=== PATIENT | female | born 1935 | race African-American/Black ===

== ENCOUNTER 2016-11-17 20:26 | Inpatient (IN) | payer MEDICARE, MEDICAID ==
[~2016-11-17] VITALS: Ht 165.1 cm; Wt 108.9 kg
[~2016-11-17 20:26] MED LIST: ACETAMINOPHEN-1 EAC1 ORAL; ACETAMINOPHEN-1 EAC1 PO; ALBUTEROL SULF8.5 GM INH; AZOPT10 ML BOTH EYES; BROMDAY; COMBIGAN EYE DRO5 ML BOTH EYES; COREG12.5 MG PO; CYCLOBENZAPRINE10 MG ORAL; DIOVAN320 MG ORAL; FLONASE1 SPRAYS NASAL; FUROSEMIDE80 MG PO; IBUPROFEN600 MG ORAL; LANTUS5 UNITS SUBQ; LEVAQUIN500 MG ORAL; LEVAQUIN750 MG ORAL; LUMIGAN1 DROP BOTH EYES; NEXIUM40 MG ORAL; NITROSTAT0.4 M1 SL; NOVOLOG100 UNIT/3 SUBQ; PAIN PATCH; POTASSIUM CHLO20 ME1 PO; QVAR7.3 GM INH; [UNRECOGNIZED DRUG - CODE]; prilosec
[2016-11-17 20:50] VITALS: BP 141/67
[2016-11-17] MEDS ORDERED: Ampicillin/Sulbactam Sod 3 GM in NS 100 ML IV SCH (21:00)
[2016-11-17] MEDS ORDERED: Solu-MEDROL 125mg Inj IVP ONE (21:00)
[2016-11-17] MEDS: DuoNeb 0.5-3(2.5)mg/3ml neb HHN SCH ×4 (21:21→21:46)
[2016-11-17] MEDS ORDERED: Unasyn 3gm Inj ONE (21:21)
[2016-11-17] MEDS ORDERED: DIOVAN320 MG ORAL (21:42)
[2016-11-17] MEDS ORDERED: COREG12.5 MG ORAL (21:42)
[2016-11-17] MEDS ORDERED: LANTUS SOL100 UNIT/1 SUBQ (21:42)
[2016-11-17] MEDS ORDERED: NOVOLOG100 UNIT/4 SQ (21:42)
[2016-11-17 21:45] LABS: BASOPHILS % (AUTO) 1.2 % (0.0-2.0); EOSINOPHILS % (AUTO) 1.7 % (0.0-3.0); LYMPHOCYTES % (AUTO) 18.6 % (20.0-45.0); MEAN CORPUSCULAR HEMOGLOBIN 22.8 PG (27.0-31.0); MEAN CORPUSCULAR VOLUME 79 FL (80-99); MEAN PLATELET VOLUME 6.7 FL (6.5-10.1); MONOCYTES % (AUTO) 8.9 % (1.0-10.0); NEUTROPHILS % (AUTO) 69.5 % (45.0-75.0); PLATELET COUNT 204 K/UL (150-450); RED BLOOD COUNT 5.81 M/UL (4.20-5.40); RED CELL DISTRIBUTION WIDTH 12.9 % (11.6-14.8); WHITE BLOOD COUNT 7.2 K/UL (4.8-10.8)
[2016-11-17 21:56] VITALS: BP 157/43
[2016-11-17 22:08] LABS: ALANINE AMINOTRANSFERASE 18 U/L (3-33); ALBUMIN/GLOBULIN RATIO 0.9 (1.0-2.7); ANION GAP 15 (5-15); ASPARTATE AMINO TRANSFERASE 18 U/L (5-40); CALCIUM 10.4 mg/dL (8.6-10.2); CARBON DIOXIDE 23 mEQ/L (20-30); CHLORIDE 100 mEQ/L (98-107); HEMOLYSIS 16; POTASSIUM 4.5 mEQ/L (3.4-4.9); SODIUM 138 mEQ/L (135-145); TOTAL PROTEIN 7.2 g/dL (6.6-8.7)
[2016-11-17 22:11] LABS: TROPONIN I < 0.30 ng/mL (<=0.30)
[2016-11-17 22:18] LABS: CKMB 2.7 ng/mL (< 3.8)
[2016-11-17 23:14] LABS: ABG ALLEN TEST POSITIVE; ABG BASE EXCESS -0.2; ABG PCO2 43.9 mmHg (35.0-45.0)
--- NOTE | 2016-11-17 23:50 | Emergency Room Report ---
History of Present Illness General Chief Complaint: Chest Pain Source: Patient Present Illness HPI Patient is 81-year-old female who presented after increased shortness of breath and chest pain. Patient had prior history of COPD she had recently had increased cough as well as difficulty breathing. She normally uses 3 L of oxygen at home. The patient had been followed by Dr. Bryant. The patient had subjective fever as well as increased dyspnea. The patient was short of breath for several days. She reports having increased dyspnea with supine position. She gradual onset of symptoms Allergies: Coded Allergies: AZITHROMYCIN (Verified Allergy, Intermediate, ITCHINESS, 10/15/13) QUESTIONABLE ALLERGIC RXN BUT PT STARTED ITCHING AFTER BEING GIVEN A DOSE BUT PT NOT SURE Patient History Past Medical History: see triage record Reviewed Nursing Documentation: PMH: Agreed, PSxH: Agreed Nursing Documentation-PMH Past Medical History: No History, Except For Hx Cardiac Problems: Yes - Pacemaker Hx Hypertension: Yes Hx Pacemaker: Yes Hx Asthma: Yes Hx COPD: Yes Hx Diabetes: Yes Hx Cancer: No Hx Gastrointestinal Problems: No Hx Neurological Problems: No Hx Tremors: Yes Hx Vertigo: Yes Hx Dizziness: Yes Hx Syncope: Yes Hx Headaches: Yes Hx Weakness: Yes Hx Fatigue: Yes Review of Systems All Other Systems: negative except mentioned in HPI Physical Exam Vital Signs Date Time Temp Pulse Resp B/P Pulse Ox O2 Delivery O2 Flow Rate FiO2 11/17/16 20:45 98.2 71 21 141/67 97 Room Air 11/17/16 21:23 21 Medical Decision Making Diagnostic Impression: Primary Impression: COPD exacerbation Additional Impression: Sarcoid ER Course Patient presented for shortness of breath.Differential included but was not limited to anemia, pneumonia, pneumothorax, myocardial infarction, pericardial effusion, congestive heart failure, acidosis. Because of complexity of patient' s case laboratory testing and imaging studies were ordered. EKG interpretation normal sinus rhythm with rate of [address] or T wave changes.The patient was given breathing treatments. She was started on IV antibiotics empirically. The patient was discussed with Dr. Mckeon who is covering for Dr. Bojorquez. Labs Test 11/17/16 21:20 11/17/16 22:20 White Blood Count 7.2 K/UL (4.8-10.8) Red Blood Count 5.81 M/UL (4.20-5.40) Hemoglobin 13.3 G/DL (12.0-16.0) Hematocrit 45.7 % (37.0-47.0) Mean Corpuscular Volume 79 FL (80-99) Mean Corpuscular Hemoglobin 22.8 PG (27.0-31.0) Mean Corpuscular Hemoglobin Concent 29.0 G/DL (32.0-36.0) Red Cell Distribution Width 12.9 % (11.6-14.8) Platelet Count 204 K/UL (150-450) Mean Platelet Volume 6.7 FL (6.5-10.1) Neutrophils (%) (Auto) 69.5 % (45.0-75.0) Lymphocytes (%) (Auto) 18.6 % (20.0-45.0) Monocytes (%) (Auto) 8.9 % (1.0-10.0) Eosinophils (%) (Auto) 1.7 % (0.0-3.0) Basophils (%) (Auto) 1.2 % (0.0-2.0) Sodium Level 138 mEQ/L (135-145) Potassium Level 4.5 mEQ/L (3.4-4.9) Chloride Level 100 mEQ/L (98-107) Carbon Dioxide Level 23 mEQ/L (20-30) Anion Gap 15 (5-15) Blood Urea Nitrogen 27 mg/dL (7-23) Creatinine 1.0 mg/dL (0.5-0.9) Estimat Glomerular Filtration Rate mL/min (>60) Glucose Level 216 mg/dL (74-106) Lactic Acid Level 1.20 mmol/L (0.66-2.22) Calcium Level 10.4 mg/dL (8.6-10.2) Total Bilirubin 0.2 mg/dL (0.0-1.2) Aspartate Amino Transf (AST/SGOT) 18 U/L (5-40) Alanine Aminotransferase (ALT/SGPT) 18 U/L (3-33) Alkaline Phosphatase 94 U/L (35-104) Total Creatine Kinase 152 U/L (26-140) Creatine Kinase MB 2.7 ng/mL (< 3.8) Creatine Kinase MB Relative Index 1.7 Troponin I < 0.30 ng/mL (<=0.30) Pro-B-Type Natriuretic Peptide 163 pg/mL (0-450) Total Protein 7.2 g/dL (6.6-8.7) Albumin 3.5 g/dL (3.5-5.2) Globulin 3.7 g/dL Albumin/Globulin Ratio 0.9 (1.0-2.7) Arterial Blood pH 7.376 (7.350-7.450) Arterial Blood Partial Pressure CO2 43.9 mmHg (35.0-45.0) Arterial Blood Partial Pressure O2 98.2 mmHg (75.0-100.0) Arterial Blood HCO3 25.2 mmol/L (22.0-26.0) Arterial Blood Oxygen Saturation 97.2 % (92.0-98.0) Arterial Blood Base Excess -0.2 Baljit Test Positive EKG Diagnostic Results Rate: normal Rhythm: NSR ST Segments: no acute changes Rhythm Strip Diag. Results EP Interpretation: yes Rhythm: NSR, no PVC's, no ectopy Chest X-Ray Diagnostic Results EP Interpretation: Yes Findings: no effusion, no pneumothorax, other - cm lung scarring Number of Views: 1 Last Vital Signs Date Time Temp Pulse Resp B/P Pulse Ox O2 Delivery O2 Flow Rate FiO2 11/17/16 21:56 65 20 157/43 100 Room Air 11/17/16 21:38 21 11/17/16 20:50 98.2 Status: unchanged Disposition: ADMITTED INPATIENT Condition: Serious Referrals: AVTAR LOVE (PCP) John Shane Nov 17, 2016 23:50
[2016-11-18] VITALS (8 sets, daily range): BP systolic 117–177; BP diastolic 42–95
[2016-11-18] MEDS ORDERED: FUROSEMIDE40 MG/5 ML ORAL (02:58)
[2016-11-18] MEDS ORDERED: DuoNeb 0.5-3(2.5)mg/3ml neb HHN PRN ×2 (04:30)
[2016-11-18] MEDS: NovoLOG Insulin Flexpen SUBQ SCH ×4 (06:52→20:57)
[2016-11-18] MEDS ORDERED: guaiFENesin DM 100mg/5ml ORAL PRN (08:00)
[2016-11-18 08:48] LABS: TROPONIN I < 0.30 ng/mL (<=0.30)
[2016-11-18] MEDS ORDERED: Guaifenesin/DM 10ml syrup ORAL ONE (09:00)
[2016-11-18] MEDS ORDERED: PredniSONE 20mg tab ORAL SCH (09:00)
[2016-11-18] MEDS: cefTRIAXone 1 GM in D5W 50 ML IVPB SCH (09:00)
[2016-11-18] MEDS: DuoNeb 0.5-3(2.5)mg/3ml neb HHN SCH ×5 (09:05→23:13)
[2016-11-18] MEDS: Pantoprazole Inj IVP SCH (09:14)
[2016-11-18] MEDS: Carvedilol 12.5mg tab ORAL SCH ×2 (09:14→20:55)
[2016-11-18] MEDS: Irbesartan 150mg tablet ORAL SCH (09:14)
[2016-11-18] MEDS: Heparin 5000 units/ml inj SUBQ SCH ×2 (09:16→20:56)
--- NOTE | 2016-11-18 12:26 | Diagnostic Imaging Report ---
Indication: Dyspnea Comparison: 07/20/16 A single view chest radiograph was obtained. Findings: The study is limited by overexposure. Patchy infiltrates and/or atelectasis may be present. Heart is enlarged. Bones are osteopenic. Pacemaker again noted. Impression: No significant change
[2016-11-18] MEDS: Guaifenesin/DM 10ml syrup ORAL PRN (18:50)
[2016-11-18] MEDS: Levemir Flexpen SUBQ SCH (20:56)
--- NOTE | 2016-11-18 23:18 | History and Physical Report ---
DATE OF ADMISSION: 11/17/2016 HISTORY OF PRESENT ILLNESS: This is an 81-year-old lady with a history of CHF status post pacemaker, hypertension, diabetes, and COPD with home oxygen. The patient presented to the ER because of shortness of breath. The patient unfortunately has progressive worsening and I saw the patient this morning. According to the patient, she has been having experiencing progressive worsening for cough with yellowish sputum for 2 days and SOB even though with the oxygen, so she presented to other ER and in the ER, the patient was found to have mild desaturation and oxygen was given and nebulizer was given and also antibiotics and Solu-Medrol 125 mg was given in the ER. This morning, the patient is breathing much better and did have wheezing and also complained of the chest pain, especially when she coughs and denied any nausea, vomiting, abdominal pain, diarrhea, headache or dizziness. PAST MEDICAL HISTORY: 1. Obesity. 2. Sick sinus syndrome status post pacemaker. 3. Congestive heart failure. 4. Hypertension. 5. Diabetes. 6. Hyperlipidemia. 7. Hypothyroidism. ALLERGIES: Azithromycin. MEDICATION: Reviewed. SOCIAL HISTORY: She lives at home. Denies smoking, alcohol, and drug use. PHYSICAL EXAMINATION: VITAL SIGNS: On right side, the blood pressure was 143/95, heart rate of 64, respiratory rate 20, temperature is 96.8 degrees, and oxygen saturation 97%. GENERAL: No acute distress. Awake and alert in NAD. HEENT: Atraumatic. Normocephalic. NECK: Supple. Trachea is in the midline. LUNGS: No wheezing. No rales. HEART: S1 and S2. Regular rate and rhythm. No murmur, rub, or gallop. ABDOMEN: Soft and nontender. Bowel sounds present. EXTREMITIES: Mild edema present. LABORATORY DATA: Sodium 138, potassium 4.4, chloride 100, bicarbonate 23, BUN 27, and creatinine is 1.0. Glucose is 215 and the lactic acid is 1.2. Calcium is 7.4 and troponin is less than 0.32 and the BNP is 124. White count 7.2, hemoglobin 30.3, hematocrit 45.7, and platelet count is 204,000. The blood gas showed pH of 7.27, PCO2 43.9, PO2 is 98.3, and bicarbonate 25.2. Chest x-ray showed no significant change. ASSESSMENT AND PLAN: 1. Shortness of breath most likely is chronic obstructive pulmonary disease exacerbation. 2. History of congestive heart failure. 3. Hypertension. 4. Diabetes. 5. History of sick sinus syndrome status post pacemaker. 6. Obesity. 7. Hyperlipidemia. 8. Hypothyroidism. PLAN: 1. Tapering prednisone. 2. Ceftriaxone. 3. Lasix 40 mg daily. 4. Cough syrup. 5. Echocardiogram. 6. DuoNeb nebulizer and discussed with the patient and RN. Rebeca Estefanía Mckeon M.D. DR: ZULMA JOB#: [id number] CC: SANDY
[2016-11-19] VITALS: BP 150/59
[2016-11-19] MEDS: Guaifenesin/DM 10ml syrup ORAL PRN ×4 (01:28→17:58)
[2016-11-19] MEDS: DuoNeb 0.5-3(2.5)mg/3ml neb HHN SCH ×6 (03:00→23:00)
[2016-11-19 04:00] VITALS: BP 143/57
[2016-11-19 06:20] LABS: MEAN CORPUSCULAR HEMOGLOBIN 23.3 PG (27.0-31.0); MEAN CORPUSCULAR HGB CONC 29.3 G/DL (32.0-36.0); MEAN CORPUSCULAR VOLUME 79 FL (80-99); MEAN PLATELET VOLUME 6.7 FL (6.5-10.1); PLATELET COUNT 153 K/UL (150-450); RED BLOOD COUNT 5.23 M/UL (4.20-5.40); RED CELL DISTRIBUTION WIDTH 12.8 % (11.6-14.8); WHITE BLOOD COUNT 10.9 K/UL (4.8-10.8)
[2016-11-19] MEDS: NovoLOG Insulin Flexpen SUBQ SCH ×4 (06:23→20:47)
[2016-11-19 06:29] LABS: ANION GAP 15 (5-15); CARBON DIOXIDE 23 mEQ/L (20-30); CHLORIDE 101 mEQ/L (98-107); CREATININE 0.9 mg/dL (0.5-0.9); HEMOLYSIS 46; POTASSIUM 5.1 mEQ/L (3.4-4.9); SODIUM 139 mEQ/L (135-145)
[2016-11-19 08:00] VITALS: BP 145/58
[2016-11-19] MEDS: cefTRIAXone 1 GM in D5W 50 ML IVPB SCH (08:49)
[2016-11-19] MEDS: Pantoprazole Inj IVP SCH (08:49)
[2016-11-19] MEDS: Carvedilol 12.5mg tab ORAL SCH ×2 (08:50→20:47)
[2016-11-19] MEDS: Irbesartan 150mg tablet ORAL SCH (08:50)
[2016-11-19] MEDS: Heparin 5000 units/ml inj SUBQ SCH ×2 (08:51→20:48)
[2016-11-19] MEDS ORDERED: PredniSONE 20mg tab ORAL SCH (09:00)
[2016-11-19 11:10] LABS: BAND NEUTROPHILS % (MANUAL) 0 % (0-8); BASOPHILS % (MANUAL) 0 % (0-2); EOSINOPHILS % (MANUAL) 0 % (0-3); LYMPHOCYTES % (MANUAL) 7 % (20-45); NEUTROPHILS % (MANUAL) 87 % (45-75); PLATELET ESTIMATE ADEQUATE; PLATELET MORPHOLOGY NORMAL; TOTAL CELLS COUNTED 100
[2016-11-19 11:11] LABS: HYPOCHROMASIA 1+
[2016-11-19 12:07] VITALS: BP 149/52
--- NOTE | 2016-11-19 13:35 | General Progress Note ---
Assessment/Plan Assessment/Plan 1. COPD exacerbation 2. History of congestive heart failure. 3. Hypertension. 4. Diabetes. 5. History of sick sinus syndrome status post pacemaker. 6. Obesity. 7. Hyperlipidemia. 8. Hypothyroidism. Plan tapering prednisone Ceftriaxone f/u sputum Cx lasix Duoneb Subjective Allergies: Coded Allergies: AZITHROMYCIN (Verified Allergy, Intermediate, ITCHINESS, 10/15/13) QUESTIONABLE ALLERGIC RXN BUT PT STARTED ITCHING AFTER BEING GIVEN A DOSE BUT PT NOT SURE Subjective still coughing and c/o pain when she coughs. Denies any fever Objective Last 24 Hour Vital Signs Date Time Temp Pulse Resp B/P Pulse Ox O2 Delivery O2 Flow Rate FiO2 11/19/16 12:07 97.5 70 20 149/52 100 Nasal Cannula 11/19/16 11:50 Room Air 11/19/16 11:50 Room Air 11/19/16 08:50 145/58 11/19/16 08:50 71 145/58 11/19/16 08:40 71 20 100 Room Air 21 11/19/16 08:30 73 20 21 11/19/16 08:30 73 20 98 Room Air 21 11/19/16 08:00 97.2 76 20 145/58 95 Room Air 11/19/16 04:59 67 20 100 Room Air 21 11/19/16 04:58 68 20 100 Room Air 11/19/16 04:00 97.0 60 18 143/57 98 Room Air 11/19/16 03:10 Room Air 11/19/16 03:10 Room Air 11/19/16 00:00 97.7 68 20 150/59 97 Nasal Cannula 2.0 11/18/16 23:16 63 18 100 Room Air 21 11/18/16 23:15 70 18 100 Room Air 21 11/18/16 22:00 157/67 11/18/16 20:55 72 177/76 11/18/16 19:09 72 20 100 Room Air 21 11/18/16 19:09 72 20 100 Room Air 21 11/18/16 19:08 71 20 21 11/18/16 19:00 96.8 64 20 177/76 97 Room Air 11/18/16 16:00 97.0 68 20 143/95 96 Room Air 11/18/16 15:17 80 20 99 Room Air 21 11/18/16 15:06 79 20 97 Room Air 21 Intake and Output 11/18/16 11/19/16 19:00 07:00 Intake Total 240 ml 900 ml Output Total 2 ml Balance 240 ml 898 ml Intake Oral 240 ml 900 ml Output Urine Total 2 ml # Voids 6 1 # Bowel Movements 2 1 Laboratory Tests 11/19/16 04:50: White Blood Count 10.9#H, Red Blood Count 5.23, Hemoglobin 12.2, Hematocrit 41.5 , Mean Corpuscular Volume 79L, Mean Corpuscular Hemoglobin 23.3L, Mean Corpuscular Hemoglobin Concent 29.3L, Red Cell Distribution Width 12.8, Platelet Count 153, Mean Platelet Volume 6.7, Neutrophils (%) (Auto) , Lymphocytes (%) (Auto) , Monocytes (%) (Auto) , Eosinophils (%) (Auto) , Basophils (%) (Auto) , Differential Total Cells Counted 100, Neutrophils % ( Manual) 87H, Lymphocytes % (Manual) 7L, Monocytes % (Manual) 6, Eosinophils % ( Manual) 0, Basophils % (Manual) 0, Band Neutrophils 0, Platelet Estimate Adequate, Platelet Morphology Normal, Hypochromasia 1+, Sodium Level 139, Potassium Level 5.1H, Chloride Level 101, Carbon Dioxide Level 23, Anion Gap 15 , Blood Urea Nitrogen 27H, Creatinine 0.9, Estimat Glomerular Filtration Rate , Glucose Level 223H, Calcium Level 10.0 Height (Feet): 5 Height (Inches): 5.00 Weight (Pounds): 240 Objective NAD, AAOx4, obese few wheezing, no rales S1,S2,RRR,no M/R/G soft, non tender,BS+ mild edema TALBERT,WALI Nov 19, 2016 13:35
--- NOTE | 2016-11-19 15:11 | Cardiology Report ---
APPROVED REPORT EKG Measurement Heart [id number] Normal sinus rhythm Normal ECG
[2016-11-19 16:00] VITALS: BP 137/56
[2016-11-19] MEDS: Flonase Nasal Inhaler 16gm NASAL SCH (16:59)
[2016-11-19 20:00] VITALS: BP 141/55
[2016-11-19] MEDS: Levemir Flexpen SUBQ SCH (20:48)
[2016-11-20] VITALS: BP 148/55
[2016-11-20] MEDS: DuoNeb 0.5-3(2.5)mg/3ml neb HHN SCH ×7 (01:43→23:00)
[2016-11-20 04:00] VITALS: BP 156/63
[2016-11-20] MEDS: NovoLOG Insulin Flexpen SUBQ SCH ×4 (06:17→21:38)
[2016-11-20 07:07] LABS: MEAN CORPUSCULAR VOLUME 80 FL (80-99); MEAN PLATELET VOLUME 6.9 FL (6.5-10.1); PLATELET COUNT 163 K/UL (150-450); RED BLOOD COUNT 5.04 M/UL (4.20-5.40); RED CELL DISTRIBUTION WIDTH 12.8 % (11.6-14.8); WHITE BLOOD COUNT 9.4 K/UL (4.8-10.8)
[2016-11-20 07:19] LABS: ANION GAP 6 (5-15); CALCIUM 10.1 mg/dL (8.6-10.2); CARBON DIOXIDE 30 mEQ/L (20-30); CHLORIDE 104 mEQ/L (98-107); CREATININE 0.9 mg/dL (0.5-0.9); HEMOLYSIS 2; POTASSIUM 4.9 mEQ/L (3.4-4.9); SODIUM 140 mEQ/L (135-145)
[2016-11-20 08:07] VITALS: BP 130/70
[2016-11-20] MEDS: cefTRIAXone 1 GM in D5W 50 ML IVPB SCH (08:42)
[2016-11-20] MEDS: Flonase Nasal Inhaler 16gm NASAL SCH (08:42)
[2016-11-20] MEDS: Carvedilol 12.5mg tab ORAL SCH ×2 (08:42→21:34)
[2016-11-20] MEDS: Guaifenesin/DM 10ml syrup ORAL PRN ×2 (08:43→13:59)
[2016-11-20] MEDS: Heparin 5000 units/ml inj SUBQ SCH ×2 (08:44→21:35)
[2016-11-20] MEDS ORDERED: PredniSONE 20mg tab ORAL SCH (09:00)
[2016-11-20 10:19] LABS: BAND NEUTROPHILS % (MANUAL) 1 % (0-8); BASOPHILS % (MANUAL) 0 % (0-2); EOSINOPHILS % (MANUAL) 0 % (0-3); HYPOCHROMASIA 1+; LYMPHOCYTES % (MANUAL) 9 % (20-45); MICROCYTES 1+; NEUTROPHILS % (MANUAL) 86 % (45-75); PLATELET ESTIMATE ADEQUATE; PLATELET MORPHOLOGY NORMAL; TOTAL CELLS COUNTED 100
[2016-11-20 11:43] VITALS: BP 120/69
[2016-11-20] MEDS: Artificial Tears 1.4% Op Soln BOTH EYES PRN (11:46)
--- NOTE | 2016-11-20 14:04 | General Progress Note ---
Assessment/Plan Assessment/Plan 1. COPD exacerbation 2. History of congestive heart failure. 3. Hypertension. 4. Diabetes. 5. History of sick sinus syndrome status post pacemaker. 6. Obesity. 7. Hyperlipidemia. 8. Hypothyroidism. Plan tapering prednisone Ceftriaxone f/u sputum Cx lasix Duoneb Subjective Allergies: Coded Allergies: AZITHROMYCIN (Verified Allergy, Intermediate, ITCHINESS, 10/15/13) QUESTIONABLE ALLERGIC RXN BUT PT STARTED ITCHING AFTER BEING GIVEN A DOSE BUT PT NOT SURE Subjective still coughing and c/o pain when she coughs. Denies any fever Objective Last 24 Hour Vital Signs Date Time Temp Pulse Resp B/P Pulse Ox O2 Delivery O2 Flow Rate FiO2 11/20/16 11:43 97.0 61 21 120/69 97 Room Air 11/20/16 11:19 72 20 98 Nasal Cannula 2.0 28 11/20/16 11:09 71 18 99 Nasal Cannula 2.0 28 11/20/16 08:50 Nasal Cannula 2.0 28 11/20/16 08:50 66 18 99 Nasal Cannula 2.0 28 11/20/16 08:50 99 Nasal Cannula 2.0 28 11/20/16 08:42 118 130/70 11/20/16 08:07 97.7 118 19 130/70 95 Room Air 11/20/16 04:00 97.3 67 20 156/63 94 Room Air 11/20/16 03:01 Nasal Cannula 11/20/16 03:00 Nasal Cannula 11/20/16 00:00 97.2 64 20 148/55 98 Nasal Cannula 2.0 11/19/16 23:35 83 18 96 Nasal Cannula 2.0 28 11/19/16 23:31 81 20 95 Nasal Cannula 2.0 28 11/19/16 20:47 66 141/55 11/19/16 20:00 97.7 66 20 141/55 96 Room Air 11/19/16 19:35 68 18 99 Nasal Cannula 2.0 28 11/19/16 19:27 Nasal Cannula 2.0 28 11/19/16 19:27 98 Nasal Cannula 2.0 28 11/19/16 19:25 66 20 98 Nasal Cannula 2.0 28 11/19/16 16:00 97.9 70 20 137/56 95 Room Air 11/19/16 14:10 77 20 100 Nasal Cannula 2.0 28 Intake and Output 11/19/16 11/20/16 19:00 07:00 Intake Total 1060 ml 750 ml Balance 1060 ml 750 ml Intake Oral 960 ml 750 ml IV Total 100 ml # Voids 2 5 Laboratory Tests 11/20/16 06:25: White Blood Count 9.4, Red Blood Count 5.04, Hemoglobin 12.1, Hematocrit 40.3, Mean Corpuscular Volume 80, Mean Corpuscular Hemoglobin 24.0L, Mean Corpuscular Hemoglobin Concent 30.0L, Red Cell Distribution Width 12.8, Platelet Count 163, Mean Platelet Volume 6.9, Neutrophils (%) (Auto) , Lymphocytes (%) (Auto) , Monocytes (%) (Auto) , Eosinophils (%) (Auto) , Basophils (%) (Auto) , Differential Total Cells Counted 100, Neutrophils % (Manual) 86H, Lymphocytes % (Manual) 9L, Monocytes % (Manual) 4, Eosinophils % (Manual) 0, Basophils % ( Manual) 0, Band Neutrophils 1, Platelet Estimate Adequate, Platelet Morphology Normal, Hypochromasia 1+, Microcytosis 1+, Sodium Level 140, Potassium Level 4.9 , Chloride Level 104, Carbon Dioxide Level 30, Anion Gap 6, Blood Urea Nitrogen 27H, Creatinine 0.9, Estimat Glomerular Filtration Rate , Glucose Level 178H, Calcium Level 10.1 Height (Feet): 5 Height (Inches): 5.00 Weight (Pounds): 240 Objective NAD, AAOx4, obese few wheezing, no rales S1,S2,RRR,no M/R/G soft, non tender,BS+ mild edema TALBERT,WALI Nov 20, 2016 14:04
[2016-11-20] MEDS: Acetylcysteine 20% Soln 4ml HHN SCH ×3 (15:30→23:00)
[2016-11-20 16:00] VITALS: BP 144/64
[2016-11-20] MEDS: guaiFENesin 600mg tab ORAL SCH (18:27)
[2016-11-20 21:00] VITALS: BP 141/61
[2016-11-20] MEDS: LUMIGAN EYE DROPS OPHTHALM SCH (21:33)
[2016-11-20] MEDS: Levemir Flexpen SUBQ SCH (21:37)
[2016-11-21] VITALS: BP 146/60
--- NOTE | 2016-11-21 00:08 | Consultation ---
DATE OF CONSULTATION: PULMONARY CONSULTATION CONSULTING PHYSICIAN: Rocael Bello M.D. REFERRING PHYSICIAN: Rebeca Mckeon M.D. REASON FOR CONSULTATION: Chronic obstructive pulmonary disease and shortness of breath. HISTORY OF PRESENT ILLNESS: This is an 81-year-old female with history of congestive heart failure, history of pacemaker, and history of chronic obstructive pulmonary disease. The patient presented to the emergency room with increasing shortness of breath and increasing debility. The patient with worsening overall distress. The patient presented with cough and congestion. She was seen and evaluated in the emergency room. She was noted to have significant oxygen desaturation and was given antibiotics and Solu-Medrol. The patient is now somewhat improved and I was asked to assist and evaluate for further therapy as well as for discharge planning. The patient does have wheezing and does have a cough. She has minimal sputum. She has no other associated symptoms. No abdominal pain. No nausea or vomiting. No recent travel. No ill contacts. PAST MEDICAL HISTORY: Notable for the above noted, pacemaker, congestive heart failure, hypertension, diabetes, chronic obstructive pulmonary disease, chronic hypoxemia, hyperlipidemia, and hypothyroidism. MEDICATIONS: Reviewed. ALLERGIES: Reviewed. SOCIAL HISTORY: She lives at home. Does not smoke or drink. She is retired PHYSICAL EXAMINATION: GENERAL: This is a well-developed female, overall comfortable, appears to be minimally congested. VITAL SIGNS: Blood pressure 120/69, pulse 61, temperature 97, saturations 93% on nasal cannula. HEENT: Extraocular movements are grossly intact. Oropharynx is otherwise moist and no thrush. LUNGS: Moderate breath sounds and rhonchi bilaterally. CARDIAC: S1 and S2. Regular rate and rhythm without murmurs, rubs, or gallops. ABDOMEN: Soft, nontender, and nondistended. No hepatosplenomegaly. EXTREMITIES: No cyanosis or clubbing. There is mild edema. NEUROLOGICAL: Grossly nonfocal, alert and oriented, able to move all extremities. LABORATORY AND DIAGNOSTIC DATA: White count 9.4, hematocrit 40, and platelets of 163,000. ABG shows pH of 7.36, pCO2 of 43, and pO2 of 98, bicarbonate 25, and oxygen saturation of 97%. Electrolytes fairly normal. BUN 27 and creatinine 0.9. The patient's chest x-ray reviewed was notable for no significant findings. IMPRESSION: 1. Chronic obstructive pulmonary disease with acute exacerbation. 2. History of congestive heart failure. 3. Shortness of breath. 4. Diabetes. 5. Respiratory insufficiency. 6. Mild respiratory congestion. 7. Arthritis. 8. Advanced age. 9. Debility. RECOMMENDATION: Thus far agree with management on prednisone, nebulized therapy, oxygen therapy. Follow clinically and monitor for intervention and further recommendations. Lasix with caution. The patient's x-rays are clear, although the patient will be on empiric antibiotics for possible underlying respiratory infection. The findings were discussed and reviewed and I will follow clinically for change. Rocael Bello M.D. DR: RAYMUNDO JOB#: [id number] CC: SANDY
[2016-11-21] MEDS: DuoNeb 0.5-3(2.5)mg/3ml neb HHN SCH ×6 (03:00→23:00)
[2016-11-21] MEDS: Acetylcysteine 20% Soln 4ml HHN SCH ×6 (03:00→23:00)
[2016-11-21 04:00] VITALS: BP 149/72
[2016-11-21] MEDS: Guaifenesin/DM 10ml syrup ORAL PRN ×3 (04:59→23:22)
[2016-11-21] MEDS: NovoLOG Insulin Flexpen SUBQ SCH ×4 (06:23→20:49)
[2016-11-21 08:06] VITALS: BP 137/52
--- NOTE | 2016-11-21 08:32 | Pulmonology Progress Note ---
Assessment/Plan Assessment/Plan IMPRESSION: 1. Chronic obstructive pulmonary disease with acute exacerbation. 2. History of congestive heart failure. 3. Shortness of breath. 4. Diabetes. 5. Respiratory insufficiency. 6. Mild respiratory congestion. 7. Arthritis. 8. Advanced age. 9. Debility. PLAN care noted oxygen therapy monitor blood sugars robitussin as needed monitor fluid status follow up chest XR impression, plan, and exam edited and reviewed in detail care discussed with RN Subjective ROS Limited/Unobtainable: Yes Allergies: Coded Allergies: AZITHROMYCIN (Verified Allergy, Intermediate, ITCHINESS, 10/15/13) QUESTIONABLE ALLERGIC RXN BUT PT STARTED ITCHING AFTER BEING GIVEN A DOSE BUT PT NOT SURE Subjective dry nonproductive cough no distress at present Objective Last 24 Hour Vital Signs Date Time Temp Pulse Resp B/P Pulse Ox O2 Delivery O2 Flow Rate FiO2 11/21/16 08:06 97.9 62 14 137/52 95 Room Air 11/21/16 07:41 71 18 100 Nasal Cannula 2.0 28 11/21/16 07:31 Nasal Cannula 2.0 28 11/21/16 07:31 98 Nasal Cannula 2.0 28 11/21/16 07:31 68 18 99 Nasal Cannula 2.0 28 11/21/16 04:00 96.3 60 20 149/72 94 Nasal Cannula 2.0 11/21/16 03:26 Nasal Cannula 2.0 28 11/21/16 03:25 Nasal Cannula 2.0 28 11/21/16 00:00 97.5 62 20 146/60 99 Nasal Cannula 2.0 11/20/16 23:14 Nasal Cannula 2.0 28 11/20/16 23:12 Nasal Cannula 2.0 28 11/20/16 21:34 69 141/69 11/20/16 21:00 98.4 61 20 141/61 98 Nasal Cannula 2.0 11/20/16 19:19 69 16 100 Nasal Cannula 2.0 28 11/20/16 19:04 28 11/20/16 19:03 96 Nasal Cannula 2.0 28 11/20/16 19:03 64 16 96 Nasal Cannula 2.0 28 11/20/16 19:03 Nasal Cannula 2.0 28 11/20/16 16:44 Nasal Cannula 11/20/16 16:44 Nasal Cannula 11/20/16 16:00 98.1 70 20 144/64 98 Nasal Cannula 2.0 1/5/17 11:43 97.0 61 21 120/69 97 Room Air 11/20/16 11:19 72 20 98 Nasal Cannula 2.0 28 11/20/16 11:09 71 18 99 Nasal Cannula 2.0 28 11/20/16 08:50 Nasal Cannula 2.0 28 11/20/16 08:50 66 18 99 Nasal Cannula 2.0 28 11/20/16 08:50 99 Nasal Cannula 2.0 28 11/20/16 08:42 118 130/70 Intake and Output 11/20/16 11/21/16 19:00 07:00 Intake Total 1090 ml 960 ml Balance 1090 ml 960 ml Intake Oral 1040 ml 960 ml IV Total 50 ml # Voids 1 3 Objective PHYSICAL EXAMINATION: GENERAL: This is a well-developed female, overall comfortable, but has cough HEENT: Extraocular movements are grossly intact. Oropharynx is otherwise moist and no thrush. LUNGS: Moderate breath sounds and rhonchi bilaterally. CARDIAC: S1 and S2. Regular rate and rhythm without murmurs, rubs, or gallops. ABDOMEN: Soft, nontender, and nondistended. No hepatosplenomegaly. EXTREMITIES: No cyanosis or clubbing. There is mild edema. NEUROLOGICAL: Grossly nonfocal, alert and oriented, able to move all extremities. Microbiology Date/Time Source Procedure Growth Status 11/18/16 11:00 Sputum Gram Stain - Final Complete 11/18/16 11:00 Sputum Sputum Culture - Final NORMAL UPPER RESPIRATORY TONY PRESENT Complete Current Medications Medications (Trade) Dose Ordered Sig/Haider Route PRN Reason Start Time Stop Time Status Last Admin Dose Admin Acetaminophen (Tylenol) 650 mg Q4H PRN ORAL Mild Pain/Temp > 100.5 11/19/16 13:45 12/19/16 13:44 11/20/16 06:18 Acetylcysteine (Mucomyst) 200 mg Q4HRT HHN 11/20/16 15:30 12/20/16 15:29 Albuterol/ Ipratropium (DuoNeb 0.5-3(2.5)mg/3ml) 3 ml Q4H PRN HHN Shortness of Breath 11/18/16 04:30 11/23/16 04:29 Albuterol/ Ipratropium (DuoNeb 0.5-3(2.5)mg/3ml) 3 ml Q4HRT HHN 11/18/16 08:30 11/23/16 08:29 11/21/16 07:31 Artificial Tears (Akwa-Tears) 1 drop Q4H PRN BOTH EYES Dry Eyes 11/19/16 15:45 12/19/16 15:44 11/20/16 11:46 Carvedilol (Coreg) 12.5 mg EVERY 12 HOURS ORAL 11/18/16 09:00 12/18/16 08:59 11/20/16 21:34 Ceftriaxone Sodium/Dextrose (Rocephin/D5W 50ml) 50 ml @ 100 mls/hr DAILY IVPB 11/18/16 09:00 11/25/16 08:59 11/20/16 08:42 Dextrose (Dextrose 50%) STAT PRN IV Hypoglycemia 11/18/16 04:30 12/18/16 04:29 Fluticasone Propionate (Flonase) 2 spray DAILY NASAL 11/19/16 15:00 12/19/16 14:59 11/20/16 08:42 Furosemide (Lasix) 40 mg DAILY IV 11/18/16 09:00 12/18/16 08:59 11/20/16 08:43 Guaifenesin (Mucinex) 600 mg TWICE A DAY ORAL 11/20/16 18:00 12/20/16 17:59 11/20/16 18:27 Guaifenesin/ Dextromethorphan (Robitussin DM Syrup) 10 ml Q4H PRN ORAL For Cough 11/18/16 08:27 12/18/16 07:59 11/21/16 04:59 Heparin Sodium (Porcine) (Heparin 5000 units/ml) 5,000 units EVERY 12 HOURS SUBQ 11/18/16 09:00 12/18/16 08:59 11/20/16 21:35 Insulin Aspart (NovoLOG) BEFORE MEALS AND HS SUBQ 11/18/16 06:30 12/18/16 06:29 11/21/16 06:23 Insulin Detemir (Levemir) 35 units BEDTIME SUBQ 11/20/16 21:00 12/20/16 20:59 11/20/16 21:37 Pantoprazole (Protonix) 40 mg DAILY ORAL 11/20/16 09:00 12/20/16 08:59 11/20/16 08:43 Patient Own Medication (Patient's Own Med) 1 ea QHS OPHTHALM 11/20/16 21:00 12/20/16 20:59 11/20/16 21:33 Prednisone (predniSONE) 20 mg DAILY ORAL 11/21/16 09:00 12/21/16 08:59 Timolol Maleate (Timoptic 0.5% Op Soln) 1 drop TWICE A DAY BOTH EYES 11/21/16 12:00 12/21/16 11:59 HANK KNUTSON Nov 21, 2016 08:32
[2016-11-21] MEDS ORDERED: PredniSONE 20mg tab ORAL SCH (09:00)
[2016-11-21] MEDS: Heparin 5000 units/ml inj SUBQ SCH ×2 (09:33→20:48)
[2016-11-21] MEDS: Flonase Nasal Inhaler 16gm NASAL SCH (09:33)
[2016-11-21] MEDS: Artificial Tears 1.4% Op Soln BOTH EYES PRN (09:34)
[2016-11-21] MEDS: guaiFENesin 600mg tab ORAL SCH ×2 (09:35→17:18)
[2016-11-21] MEDS: Carvedilol 12.5mg tab ORAL SCH ×2 (09:35→20:46)
[2016-11-21] MEDS: cefTRIAXone 1 GM in D5W 50 ML IVPB SCH ×2 (09:36→09:42)
[2016-11-21] MEDS: PredniSONE 20mg tab ORAL SCH (09:47)
[2016-11-21 11:54] VITALS: BP 133/54
[2016-11-21] MEDS: Timolol 0.5% Op Soln 2.5ml BOTH EYES SCH ×2 (12:29→20:46)
--- NOTE | 2016-11-21 12:54 | General Progress Note ---
Assessment/Plan Assessment/Plan COPD Exacerbation - see treatment List Diastolic CHF Check 2 D Echo Subjective Allergies: Coded Allergies: AZITHROMYCIN (Verified Allergy, Intermediate, ITCHINESS, 10/15/13) QUESTIONABLE ALLERGIC RXN BUT PT STARTED ITCHING AFTER BEING GIVEN A DOSE BUT PT NOT SURE Subjective Still SOB Objective Last 24 Hour Vital Signs Date Time Temp Pulse Resp B/P Pulse Ox O2 Delivery O2 Flow Rate FiO2 11/21/16 11:54 97.5 60 15 133/54 99 Nasal Cannula 11/21/16 11:03 70 18 100 Nasal Cannula 2.0 28 11/21/16 10:53 68 18 99 Nasal Cannula 2.0 28 11/21/16 09:35 74 140/77 11/21/16 08:06 97.9 62 14 137/52 95 Room Air 11/21/16 07:41 71 18 100 Nasal Cannula 2.0 28 11/21/16 07:31 Nasal Cannula 2.0 28 11/21/16 07:31 98 Nasal Cannula 2.0 28 11/21/16 07:31 68 18 99 Nasal Cannula 2.0 28 11/21/16 04:00 96.3 60 20 149/72 94 Nasal Cannula 2.0 11/21/16 03:26 Nasal Cannula 2.0 28 11/21/16 03:25 Nasal Cannula 2.0 28 11/21/16 00:00 97.5 62 20 146/60 99 Nasal Cannula 2.0 11/20/16 23:14 Nasal Cannula 2.0 28 11/20/16 23:12 Nasal Cannula 2.0 28 11/20/16 21:34 69 141/69 11/20/16 21:00 98.4 61 20 141/61 98 Nasal Cannula 2.0 11/20/16 19:19 69 16 100 Nasal Cannula 2.0 28 11/20/16 19:04 28 11/20/16 19:03 96 Nasal Cannula 2.0 28 11/20/16 19:03 64 16 96 Nasal Cannula 2.0 28 11/20/16 19:03 Nasal Cannula 2.0 28 11/20/16 16:44 Nasal Cannula 11/20/16 16:44 Nasal Cannula 11/20/16 16:00 98.1 70 20 144/64 98 Nasal Cannula 2.0 Intake and Output 11/20/16 11/21/16 19:00 07:00 Intake Total 1090 ml 960 ml Balance 1090 ml 960 ml Intake Oral 1040 ml 960 ml IV Total 50 ml # Voids 1 3 Height (Feet): 5 Height (Inches): 5.00 Weight (Pounds): 240 Objective CV RR Lungs B wheezes Abd SNT. BS + E B +2 edema AVTRA LOVE Nov 21, 2016 12:54
[2016-11-21] MEDS ORDERED: NS 275ml ONE (15:09)
[2016-11-21] MEDS ORDERED: Tubing IV Secondary IV ONE (15:09)
[2016-11-21 16:00] VITALS: BP 150/64
[2016-11-21] MEDS ORDERED: Lactulose 10gm/15ml UDC ORAL SCH (18:00)
[2016-11-21 20:46] VITALS: BP 106/46
[2016-11-21] MEDS: LUMIGAN EYE DROPS OPHTHALM SCH (20:46)
[2016-11-21] MEDS: Levemir Flexpen SUBQ SCH (20:50)
[2016-11-22] VITALS: BP 133/58
[2016-11-22] MEDS: Acetylcysteine 20% Soln 4ml HHN SCH ×6 (03:30→23:00)
[2016-11-22] MEDS: DuoNeb 0.5-3(2.5)mg/3ml neb HHN SCH ×6 (03:31→23:00)
[2016-11-22 04:00] VITALS: BP 144/74
[2016-11-22] MEDS: Guaifenesin/DM 10ml syrup ORAL PRN ×2 (05:27→14:41)
[2016-11-22] MEDS: NovoLOG Insulin Flexpen SUBQ SCH ×4 (06:19→20:31)
[2016-11-22 08:21] VITALS: BP 137/103
--- NOTE | 2016-11-22 08:38 | Pulmonology Progress Note ---
Assessment/Plan Assessment/Plan IMPRESSION: 1. Chronic obstructive pulmonary disease with acute exacerbation. 2. History of congestive heart failure. 3. Shortness of breath. 4. Diabetes. 5. Respiratory insufficiency. 6. Mild respiratory congestion. 7. Arthritis. 8. Advanced age. 9. Debility. PLAN care noted oxygen therapy monitor blood sugars robitussin as needed monitor fluid status follow up chest XR ordered dc rocephin po antibiotics dc planning impression, plan, and exam edited and reviewed in detail care discussed with RN Subjective Allergies: Coded Allergies: AZITHROMYCIN (Verified Allergy, Intermediate, ITCHINESS, 10/15/13) QUESTIONABLE ALLERGIC RXN BUT PT STARTED ITCHING AFTER BEING GIVEN A DOSE BUT PT NOT SURE Subjective dry nonproductive cough persists no distress at present Objective Last 24 Hour Vital Signs Date Time Temp Pulse Resp B/P Pulse Ox O2 Delivery O2 Flow Rate FiO2 11/22/16 08:21 98.2 73 14 137/103 99 Nasal Cannula 11/22/16 06:27 97.3 11/22/16 04:00 97.3 73 20 144/74 96 Nasal Cannula 2.0 11/22/16 03:33 69 18 100 Nasal Cannula 2.0 28 11/22/16 03:32 65 18 98 Nasal Cannula 2.0 28 11/22/16 00:00 97.3 62 20 133/58 99 Room Air 11/21/16 23:10 Nasal Cannula 2.0 28 11/21/16 23:09 Nasal Cannula 2.0 28 11/21/16 20:46 97.0 61 20 106/46 100 Room Air 11/21/16 20:46 61 106/46 11/21/16 19:09 69 18 99 Nasal Cannula 2.0 28 11/21/16 19:07 67 18 99 Nasal Cannula 2.0 28 11/21/16 19:07 Nasal Cannula 2.0 28 11/21/16 19:07 96 Nasal Cannula 2.0 28 11/21/16 16:00 98.0 61 20 150/64 100 Room Air 11/21/16 14:36 69 20 100 Nasal Cannula 2.0 28 11/21/16 14:26 70 18 98 Nasal Cannula 2.0 28 11/21/16 11:54 97.5 60 15 133/54 99 Nasal Cannula 11/21/16 11:03 70 18 100 Nasal Cannula 2.0 28 11/21/16 10:53 68 18 99 Nasal Cannula 2.0 28 11/21/16 09:35 74 140/77 Intake and Output 11/21/16 11/22/16 19:00 07:00 Intake Total 640 ml 670 ml Balance 640 ml 670 ml Intake Oral 640 ml 670 ml # Voids 3 4 Objective PHYSICAL EXAMINATION: GENERAL: This is a well-developed female, overall comfortable, but has cough HEENT: Extraocular movements are grossly intact. Oropharynx is otherwise moist and no thrush. LUNGS: Moderate breath sounds and rhonchi bilaterally. CARDIAC: S1 and S2. Regular rate and rhythm without murmurs, rubs, or gallops. ABDOMEN: Soft, nontender, and nondistended. No hepatosplenomegaly. EXTREMITIES: No cyanosis or clubbing. There is mild edema. NEUROLOGICAL: Grossly nonfocal, alert and oriented, able to move all extremities. reviewed and edited Current Medications Medications (Trade) Dose Ordered Sig/Haider Route PRN Reason Start Time Stop Time Status Last Admin Dose Admin Acetaminophen (Tylenol) 650 mg Q4H PRN ORAL Mild Pain/Temp > 100.5 11/19/16 13:45 12/19/16 13:44 11/22/16 05:28 Acetylcysteine (Mucomyst) 200 mg Q4HRT HHN 11/20/16 15:30 12/20/16 15:29 11/22/16 07:00 Albuterol/ Ipratropium (DuoNeb 0.5-3(2.5)mg/3ml) 3 ml Q4H PRN HHN Shortness of Breath 11/18/16 04:30 11/23/16 04:29 Albuterol/ Ipratropium (DuoNeb 0.5-3(2.5)mg/3ml) 3 ml Q4HRT HHN 11/18/16 08:30 11/23/16 08:29 11/22/16 07:00 Artificial Tears (Akwa-Tears) 1 drop Q4H PRN BOTH EYES Dry Eyes 11/19/16 15:45 12/19/16 15:44 11/21/16 09:34 Carvedilol (Coreg) 12.5 mg EVERY 12 HOURS ORAL 11/18/16 09:00 12/18/16 08:59 11/21/16 09:35 Ceftriaxone Sodium/Dextrose (Rocephin/D5W 50ml) 50 ml @ 100 mls/hr DAILY IVPB 11/18/16 09:00 11/25/16 08:59 11/21/16 09:42 Dextrose (Dextrose 50%) STAT PRN IV Hypoglycemia 11/18/16 04:30 12/18/16 04:29 Fluticasone Propionate (Flonase) 2 spray DAILY NASAL 11/19/16 15:00 12/19/16 14:59 11/21/16 09:33 Furosemide (Lasix) 40 mg DAILY IV 11/18/16 09:00 12/18/16 08:59 11/21/16 09:25 Guaifenesin (Mucinex) 600 mg TWICE A DAY ORAL 11/20/16 18:00 12/20/16 17:59 11/21/16 17:18 Guaifenesin/ Dextromethorphan (Robitussin DM Syrup) 10 ml Q4H PRN ORAL For Cough 11/18/16 08:27 12/18/16 07:59 11/22/16 05:27 Heparin Sodium (Porcine) (Heparin 5000 units/ml) 5,000 units EVERY 12 HOURS SUBQ 11/18/16 09:00 12/18/16 08:59 11/21/16 20:48 Insulin Aspart (NovoLOG) BEFORE MEALS AND HS SUBQ 11/18/16 06:30 12/18/16 06:29 11/22/16 06:19 Insulin Detemir (Levemir) 35 units BEDTIME SUBQ 11/20/16 21:00 12/20/16 20:59 11/21/16 20:50 Pantoprazole (Protonix) 40 mg DAILY ORAL 11/20/16 09:00 12/20/16 08:59 11/21/16 09:34 Patient Own Medication (Patient's Own Med) 1 ea QHS OPHTHALM 11/20/16 21:00 12/20/16 20:59 11/21/16 20:46 Prednisone (predniSONE) 20 mg DAILY ORAL 11/21/16 09:00 12/21/16 08:59 Timolol Maleate (Timoptic 0.5% Op Soln) 1 drop TWICE A DAY BOTH EYES 11/21/16 12:00 12/21/16 11:59 11/21/16 20:46 HANK KNUTSON Nov 22, 2016 08:38
[2016-11-22] MEDS: PredniSONE 20mg tab ORAL SCH (08:52)
[2016-11-22] MEDS: guaiFENesin 600mg tab ORAL SCH ×2 (08:53→17:17)
[2016-11-22] MEDS: Carvedilol 12.5mg tab ORAL SCH ×2 (08:53→20:03)
[2016-11-22] MEDS: Heparin 5000 units/ml inj SUBQ SCH ×2 (09:00→20:04)
[2016-11-22] MEDS: Levofloxacin 500mg tab ORAL SCH (09:00)
[2016-11-22] MEDS: Flonase Nasal Inhaler 16gm NASAL SCH (09:02)
[2016-11-22] MEDS: Timolol 0.5% Op Soln 2.5ml BOTH EYES SCH ×2 (09:02→17:16)
--- NOTE | 2016-11-22 10:35 | General Progress Note ---
Assessment/Plan Assessment/Plan 1. COPD exacerbation 2. History of congestive heart failure. 3. Hypertension. 4. Diabetes. 5. History of sick sinus syndrome status post pacemaker. 6. Obesity. 7. Hyperlipidemia. 8. Hypothyroidism. Plan tapering prednisone hydralazine 25 mg TID f/u sputum Cx lasix Duoneb PT/OT Subjective Allergies: Coded Allergies: AZITHROMYCIN (Verified Allergy, Intermediate, ITCHINESS, 10/15/13) QUESTIONABLE ALLERGIC RXN BUT PT STARTED ITCHING AFTER BEING GIVEN A DOSE BUT PT NOT SURE Subjective c/o too weak to walk Objective Last 24 Hour Vital Signs Date Time Temp Pulse Resp B/P Pulse Ox O2 Delivery O2 Flow Rate FiO2 11/22/16 08:53 73 137/103 11/22/16 08:21 98.2 73 14 137/103 99 Nasal Cannula 11/22/16 07:10 72 18 100 Nasal Cannula 2.0 28 11/22/16 07:00 99 Nasal Cannula 2.0 28 11/22/16 07:00 Nasal Cannula 2.0 28 11/22/16 07:00 73 18 98 Nasal Cannula 2.0 28 11/22/16 06:27 97.3 11/22/16 04:00 97.3 73 20 144/74 96 Nasal Cannula 2.0 11/22/16 03:33 69 18 100 Nasal Cannula 2.0 28 11/22/16 03:32 65 18 98 Nasal Cannula 2.0 28 11/22/16 00:00 97.3 62 20 133/58 99 Room Air 11/21/16 23:10 Nasal Cannula 2.0 28 11/21/16 23:09 Nasal Cannula 2.0 28 11/21/16 20:46 97.0 61 20 106/46 100 Room Air 11/21/16 20:46 61 106/46 11/21/16 19:09 69 18 99 Nasal Cannula 2.0 28 11/21/16 19:07 67 18 99 Nasal Cannula 2.0 28 11/21/16 19:07 Nasal Cannula 2.0 28 11/21/16 19:07 96 Nasal Cannula 2.0 28 11/21/16 16:00 98.0 61 20 150/64 100 Room Air 11/21/16 14:36 69 20 100 Nasal Cannula 2.0 28 11/21/16 14:26 70 18 98 Nasal Cannula 2.0 28 11/21/16 11:54 97.5 60 15 133/54 99 Nasal Cannula 11/21/16 11:03 70 18 100 Nasal Cannula 2.0 28 11/21/16 10:53 68 18 99 Nasal Cannula 2.0 28 Intake and Output 11/21/16 11/22/16 19:00 07:00 Intake Total 640 ml 670 ml Balance 640 ml 670 ml Intake Oral 640 ml 670 ml # Voids 3 4 Height (Feet): 5 Height (Inches): 5.00 Weight (Pounds): 240 Objective NAD, AAOx4, obese few wheezing, no rales S1,S2,RRR,no M/R/G soft, non tender,BS+ mild edema TALBERT,WALI Nov 22, 2016 10:35
--- NOTE | 2016-11-22 11:16 | Diagnostic Imaging Report ---
Indication: Dyspnea Comparison: November 17, 2016 A single view chest radiograph was obtained. Findings: Perihilar scarring suspected on the right side. Cardiac silhouette is mildly enlarged but stable. Pacemaker noted. Bones are osteopenic. Impression: Stable radiograph
[2016-11-22] MEDS: HydrALAZINE 25mg tab ORAL SCH ×2 (11:41→20:03)
[2016-11-22 11:52] VITALS: BP 123/62
[2016-11-22 16:00] VITALS: BP 145/68
[2016-11-22 20:00] VITALS: BP 126/50
[2016-11-22] MEDS: LUMIGAN EYE DROPS OPHTHALM SCH (20:04)
[2016-11-22] MEDS: Levemir Flexpen SUBQ SCH (20:30)
[2016-11-23] VITALS: BP 154/67
[2016-11-23] MEDS: Acetylcysteine 20% Soln 4ml HHN SCH ×6 (03:00→23:08)
[2016-11-23] MEDS: DuoNeb 0.5-3(2.5)mg/3ml neb HHN SCH ×6 (03:43→23:08)
[2016-11-23 04:00] VITALS: BP 145/71
[2016-11-23] MEDS: Guaifenesin/DM 10ml syrup ORAL PRN (06:09)
[2016-11-23] MEDS: HydrALAZINE 25mg tab ORAL SCH ×3 (06:09→21:29)
[2016-11-23] MEDS: NovoLOG Insulin Flexpen SUBQ SCH ×4 (06:12→21:30)
[2016-11-23 07:34] LABS: BASOPHILS % (AUTO) 0.8 % (0.0-2.0); EOSINOPHILS % (AUTO) 0.8 % (0.0-3.0); LYMPHOCYTES % (AUTO) 19.6 % (20.0-45.0); MEAN CORPUSCULAR HEMOGLOBIN 22.9 PG (27.0-31.0); MEAN CORPUSCULAR HGB CONC 28.7 G/DL (32.0-36.0); MEAN CORPUSCULAR VOLUME 80 FL (80-99); MEAN PLATELET VOLUME 7.1 FL (6.5-10.1); NEUTROPHILS % (AUTO) 70.8 % (45.0-75.0); PLATELET COUNT 205 K/UL (150-450); RED BLOOD COUNT 5.36 M/UL (4.20-5.40); RED CELL DISTRIBUTION WIDTH 13.2 % (11.6-14.8); WHITE BLOOD COUNT 9.7 K/UL (4.8-10.8)
[2016-11-23 07:42] LABS: ANION GAP 10 (5-15); CALCIUM 10.3 mg/dL (8.6-10.2); CARBON DIOXIDE 29 mEQ/L (20-30); CHLORIDE 98 mEQ/L (98-107); CREATININE 1.1 mg/dL (0.5-0.9); HEMOLYSIS 17; POTASSIUM 4.4 mEQ/L (3.4-4.9); SODIUM 137 mEQ/L (135-145)
[2016-11-23 08:08] VITALS: BP 175/72
[2016-11-23] MEDS ORDERED: PredniSONE 5mg tab ORAL SCH (09:00)
[2016-11-23] MEDS: Carvedilol 12.5mg tab ORAL SCH ×2 (09:20→21:29)
[2016-11-23] MEDS: guaiFENesin 600mg tab ORAL SCH ×2 (09:20→17:29)
[2016-11-23] MEDS: Levofloxacin 500mg tab ORAL SCH (09:21)
[2016-11-23] MEDS: Flonase Nasal Inhaler 16gm NASAL SCH (09:23)
[2016-11-23] MEDS: Timolol 0.5% Op Soln 2.5ml BOTH EYES SCH ×2 (09:23→17:29)
[2016-11-23] MEDS: Heparin 5000 units/ml inj SUBQ SCH ×2 (09:26→21:32)
--- NOTE | 2016-11-23 10:33 | Cardiology Report ---
APPROVED REPORT EXAM: Two-dimensional and M-mode echocardiogram with Doppler and color Doppler. INDICATION Congestive Heart Failure M-Mode DIMENSIONS IVSd1.1 (0.7-1.1cm)Left Atrium (MM)3.3 (1.6-4.0cm) LVDd4.0 (3.5-5.6cm)Aortic Root2.9 (2.0-3.7cm) PWd1.1 (0.7-1.1cm)Aortic Cusp Exc.1.5 (1.5-2.0cm) LVDs2.2 (2.5-4.0cm) PWs.9 cm Technically difficult study due to poor acoustic windows. Study quality precludes accurate assessment of regional wall motion. Normal left ventricular chamber size, systolic function and wall motion. Left ventricular ejection fraction estimated to be 65-70%. No evidence of ventricular hypertrophy. Anterior Echo-free space, may be due to pericardial fat or effusion. All other cardiac chamber sizes are within normal limits. Mild focal aortic valve sclerosis with adequate cusp excursion Mildly thickened mitral valve leaflets with normal excursion. Mild mitral annulus and aortic root calcification. Pulmonic valve not well visualized. Normal tricuspid valve structure. IVC at normal size with physiologic collapse. Poor valvular definition A color flow and spectral Doppler study was performed and revealed: Trace aortic regurgitation. Trace mitral regurgitation. Mitral diastolic velocities suggest reduced left ventricular relaxation (Grade I). Trace tricuspid regurgitation. Tricuspid systolic velocities suggests peak right ventricular systolic pressure of 7 mmHg.
--- NOTE | 2016-11-23 10:44 | General Progress Note ---
WALI TALBERT 11/23/16 1044: Assessment/Plan Assessment/Plan 1. COPD exacerbation 2. History of congestive heart failure. 3. Hypertension. 4. Diabetes. 5. History of sick sinus syndrome status post pacemaker. 6. Obesity. 7. Hyperlipidemia. 8. Hypothyroidism. Plan tapering prednisone hydralazine 25 mg TID f/u sputum Cx lasix Duoneb PT/OT Subjective Allergies: Coded Allergies: AZITHROMYCIN (Verified Allergy, Intermediate, ITCHINESS, 10/15/13) QUESTIONABLE ALLERGIC RXN BUT PT STARTED ITCHING AFTER BEING GIVEN A DOSE BUT PT NOT SURE Subjective c/o too weak to walk Objective Last 24 Hour Vital Signs Date Time Temp Pulse Resp B/P Pulse Ox O2 Delivery O2 Flow Rate FiO2 11/23/16 09:20 69 175/72 11/23/16 08:08 97.3 69 14 175/72 99 Room Air 11/23/16 07:53 74 20 99 Nasal Cannula 2.0 28 11/23/16 07:43 73 18 98 Nasal Cannula 2.0 28 11/23/16 07:42 98 Nasal Cannula 2.0 28 11/23/16 07:42 Nasal Cannula 2.0 28 11/23/16 06:09 145/71 11/23/16 04:00 97.0 69 20 145/71 99 Nasal Cannula 2.0 11/23/16 03:45 72 20 97 Nasal Cannula 2.0 28 11/23/16 03:44 70 16 96 Nasal Cannula 2.0 28 11/23/16 00:00 97.0 66 20 154/67 99 Nasal Cannula 2.0 11/22/16 23:47 Nasal Cannula 2.0 28 11/22/16 23:46 Nasal Cannula 2.0 28 11/22/16 21:13 63 18 Nasal Cannula 2.0 28 11/22/16 21:12 Nasal Cannula 2.0 28 11/22/16 21:12 99 Nasal Cannula 2.0 28 11/22/16 20:47 65 18 99 Nasal Cannula 2.0 28 11/22/16 20:42 63 18 98 Nasal Cannula 2.0 28 11/22/16 20:03 145/68 11/22/16 20:03 79 145/68 11/22/16 20:00 98.2 98 20 126/50 97 Nasal Cannula 2.0 11/22/16 16:10 79 18 99 Nasal Cannula 2.0 28 11/22/16 16:00 97.7 78 20 145/68 98 Room Air 11/22/16 15:52 28 11/22/16 15:51 78 18 98 Nasal Cannula 2.0 28 11/22/16 11:52 98.6 65 14 123/62 97 Room Air 11/22/16 11:41 123/69 11/22/16 11:00 Nasal Cannula 2.0 28 11/22/16 11:00 Nasal Cannula 2.0 28 Intake and Output 11/22/16 11/23/16 19:00 07:00 Intake Total 1100 ml 200 ml Balance 1100 ml 200 ml Intake Oral 1100 ml 200 ml # Voids 3 3 # Bowel Movements 1 Laboratory Tests 11/23/16 05:30: White Blood Count 9.7, Red Blood Count 5.36, Hemoglobin 12.3, Hematocrit 42.7, Mean Corpuscular Volume 80, Mean Corpuscular Hemoglobin 22.9L, Mean Corpuscular Hemoglobin Concent 28.7L, Red Cell Distribution Width 13.2, Platelet Count 205, Mean Platelet Volume 7.1, Neutrophils (%) (Auto) 70.8, Lymphocytes (%) (Auto) 19.6L, Monocytes (%) (Auto) 8.0, Eosinophils (%) (Auto) 0.8, Basophils (%) (Auto ) 0.8, Sodium Level 137, Potassium Level 4.4, Chloride Level 98, Carbon Dioxide Level 29, Anion Gap 10, Blood Urea Nitrogen 37H, Creatinine 1.1H, Estimat Glomerular Filtration Rate , Glucose Level 259H, Calcium Level 10.3H Height (Feet): 5 Height (Inches): 5.00 Weight (Pounds): 240 Objective NAD, AAOx4, obese few wheezing, no rales S1,S2,RRR,no M/R/G soft, non tender,BS+ mild edema HANK KNUTSON 11/23/16 1045: Subjective Allergies: Coded Allergies: AZITHROMYCIN (Verified Allergy, Intermediate, ITCHINESS, 10/15/13) QUESTIONABLE ALLERGIC RXN BUT PT STARTED ITCHING AFTER BEING GIVEN A DOSE BUT PT NOT SURE WALI TALBERT Nov 23, 2016 10:44 HANK KNUTSON Nov 23, 2016 10:45
--- NOTE | 2016-11-23 10:44 | Pulmonology Progress Note ---
Assessment/Plan Assessment/Plan IMPRESSION: 1. Chronic obstructive pulmonary disease with acute exacerbation. 2. History of congestive heart failure. 3. Shortness of breath. 4. Diabetes. 5. Respiratory insufficiency. 6. Mild respiratory congestion. 7. Arthritis. 8. Advanced age. 9. Debility. PLAN care noted oxygen therapy monitor blood sugars robitussin as needed monitor fluid status follow up chest XR ordered prednisone to off po antibiotics dc planning per pulmonary impression, plan, and exam edited and reviewed in detail care discussed with RN Subjective Allergies: Coded Allergies: AZITHROMYCIN (Verified Allergy, Intermediate, ITCHINESS, 10/15/13) QUESTIONABLE ALLERGIC RXN BUT PT STARTED ITCHING AFTER BEING GIVEN A DOSE BUT PT NOT SURE Subjective comfortable at present no distress at present some wheezing intermittent Objective Last 24 Hour Vital Signs Date Time Temp Pulse Resp B/P Pulse Ox O2 Delivery O2 Flow Rate FiO2 11/23/16 09:20 69 175/72 11/23/16 08:08 97.3 69 14 175/72 99 Room Air 11/23/16 07:53 74 20 99 Nasal Cannula 2.0 28 11/23/16 07:43 73 18 98 Nasal Cannula 2.0 28 11/23/16 07:42 98 Nasal Cannula 2.0 28 11/23/16 07:42 Nasal Cannula 2.0 28 11/23/16 06:09 145/71 11/23/16 04:00 97.0 69 20 145/71 99 Nasal Cannula 2.0 11/23/16 03:45 72 20 97 Nasal Cannula 2.0 28 11/23/16 03:44 70 16 96 Nasal Cannula 2.0 28 11/23/16 00:00 97.0 66 20 154/67 99 Nasal Cannula 2.0 11/22/16 23:47 Nasal Cannula 2.0 28 11/22/16 23:46 Nasal Cannula 2.0 28 11/22/16 21:13 63 18 Nasal Cannula 2.0 28 11/22/16 21:12 Nasal Cannula 2.0 28 11/22/16 21:12 99 Nasal Cannula 2.0 28 11/22/16 20:47 65 18 99 Nasal Cannula 2.0 28 11/22/16 20:42 63 18 98 Nasal Cannula 2.0 28 11/22/16 20:03 145/68 11/22/16 20:03 79 145/68 11/22/16 20:00 98.2 98 20 126/50 97 Nasal Cannula 2.0 11/22/16 16:10 79 18 99 Nasal Cannula 2.0 28 11/22/16 16:00 97.7 78 20 145/68 98 Room Air 11/22/16 15:52 28 11/22/16 15:51 78 18 98 Nasal Cannula 2.0 28 11/22/16 11:52 98.6 65 14 123/62 97 Room Air 11/22/16 11:41 123/69 11/22/16 11:00 Nasal Cannula 2.0 28 11/22/16 11:00 Nasal Cannula 2.0 28 Intake and Output 11/22/16 11/23/16 19:00 07:00 Intake Total 1100 ml 200 ml Balance 1100 ml 200 ml Intake Oral 1100 ml 200 ml # Voids 3 3 # Bowel Movements 1 Objective PHYSICAL EXAMINATION: GENERAL: This is a well-developed female, overall comfortable, but has cough HEENT: Extraocular movements are grossly intact. Oropharynx is otherwise moist and no thrush. LUNGS: Moderate breath sounds but no rhonchi bilaterally. occasional wheeze CARDIAC: S1 and S2. Regular rate and rhythm without murmurs, rubs, or gallops. ABDOMEN: Soft, nontender, and nondistended. No hepatosplenomegaly. EXTREMITIES: No cyanosis or clubbing. There is mild edema. NEUROLOGICAL: Grossly nonfocal, alert and oriented, able to move all extremities. reviewed and edited Laboratory Tests 11/23/16 05:30: White Blood Count 9.7, Red Blood Count 5.36, Hemoglobin 12.3, Hematocrit 42.7, Mean Corpuscular Volume 80, Mean Corpuscular Hemoglobin 22.9L, Mean Corpuscular Hemoglobin Concent 28.7L, Red Cell Distribution Width 13.2, Platelet Count 205, Mean Platelet Volume 7.1, Neutrophils (%) (Auto) 70.8, Lymphocytes (%) (Auto) 19.6L, Monocytes (%) (Auto) 8.0, Eosinophils (%) (Auto) 0.8, Basophils (%) (Auto ) 0.8, Sodium Level 137, Potassium Level 4.4, Chloride Level 98, Carbon Dioxide Level 29, Anion Gap 10, Blood Urea Nitrogen 37H, Creatinine 1.1H, Estimat Glomerular Filtration Rate , Glucose Level 259H, Calcium Level 10.3H Current Medications Medications (Trade) Dose Ordered Sig/Haider Route PRN Reason Start Time Stop Time Status Last Admin Dose Admin Acetaminophen (Tylenol) 650 mg Q4H PRN ORAL Mild Pain/Temp > 100.5 11/19/16 13:45 12/19/16 13:44 11/22/16 05:28 Acetylcysteine (Mucomyst) 200 mg Q4HRT HHN 11/20/16 15:30 12/20/16 15:29 11/23/16 07:43 Artificial Tears (Akwa-Tears) 1 drop Q4H PRN BOTH EYES Dry Eyes 11/19/16 15:45 12/19/16 15:44 11/21/16 09:34 Carvedilol (Coreg) 12.5 mg EVERY 12 HOURS ORAL 11/18/16 09:00 12/18/16 08:59 11/23/16 09:20 Dextrose (Dextrose 50%) STAT PRN IV Hypoglycemia 11/18/16 04:30 12/18/16 04:29 Fluticasone Propionate (Flonase) 2 spray DAILY NASAL 11/19/16 15:00 12/19/16 14:59 11/23/16 09:23 Furosemide (Lasix) 40 mg DAILY IV 11/18/16 09:00 12/18/16 08:59 11/23/16 09:23 Guaifenesin (Mucinex) 600 mg TWICE A DAY ORAL 11/20/16 18:00 12/20/16 17:59 11/23/16 09:20 Guaifenesin/ Dextromethorphan (Robitussin DM Syrup) 10 ml Q4H PRN ORAL For Cough 11/18/16 08:27 12/18/16 07:59 11/23/16 06:09 Heparin Sodium (Porcine) (Heparin 5000 units/ml) 5,000 units EVERY 12 HOURS SUBQ 11/18/16 09:00 12/18/16 08:59 11/23/16 09:26 Hydralazine HCl (Apresoline) 25 mg Q8HR ORAL 11/23/16 06:00 12/22/16 10:59 11/23/16 06:09 Insulin Aspart (NovoLOG) BEFORE MEALS AND HS SUBQ 11/18/16 06:30 12/18/16 06:29 11/23/16 06:12 Insulin Detemir (Levemir) 35 units BEDTIME SUBQ 11/20/16 21:00 12/20/16 20:59 11/22/16 20:30 Levofloxacin (Levaquin) 500 mg DAILY ORAL 11/22/16 09:00 11/29/16 08:59 11/23/16 09:21 Pantoprazole (Protonix) 40 mg DAILY ORAL 11/20/16 09:00 12/20/16 08:59 11/23/16 09:20 Patient Own Medication (Patient's Own Med) 1 ea QHS OPHTHALM 11/20/16 21:00 12/20/16 20:59 11/22/16 20:04 Prednisone (predniSONE) 10 mg DAILY ORAL 11/23/16 09:00 12/23/16 08:59 11/23/16 09:21 Timolol Maleate (Timoptic 0.5% Op Soln) 1 drop TWICE A DAY BOTH EYES 11/21/16 12:00 12/21/16 11:59 11/23/16 09:23 HANK KNUTSON Nov 23, 2016 10:44
[2016-11-23 11:56] VITALS: BP 148/73
[2016-11-23 16:00] VITALS: BP 140/66
[2016-11-23 20:00] VITALS: BP 135/72
[2016-11-23] MEDS: LUMIGAN EYE DROPS OPHTHALM SCH (21:28)
[2016-11-23] MEDS: Levemir Flexpen SUBQ SCH (21:31)
[2016-11-24] VITALS: BP 148/67
[2016-11-24] MEDS: DuoNeb 0.5-3(2.5)mg/3ml neb HHN SCH ×7 (03:00→23:00)
[2016-11-24] MEDS: Acetylcysteine 20% Soln 4ml HHN SCH ×6 (03:00→23:00)
[2016-11-24 04:00] VITALS: BP 135/76
[2016-11-24] MEDS: HydrALAZINE 25mg tab ORAL SCH ×3 (05:52→21:53)
[2016-11-24] MEDS: NovoLOG Insulin Flexpen SUBQ SCH ×4 (06:36→21:18)
[2016-11-24 08:00] VITALS: BP 142/56
[2016-11-24] MEDS: Flonase Nasal Inhaler 16gm NASAL SCH (09:48)
[2016-11-24] MEDS: Carvedilol 12.5mg tab ORAL SCH ×2 (09:48→21:16)
[2016-11-24] MEDS: PredniSONE 5mg tab ORAL SCH (09:49)
[2016-11-24] MEDS: Timolol 0.5% Op Soln 2.5ml BOTH EYES SCH ×2 (09:50→17:07)
[2016-11-24] MEDS: guaiFENesin 600mg tab ORAL SCH ×2 (09:51→17:06)
[2016-11-24] MEDS: Levofloxacin 500mg tab ORAL SCH (09:51)
[2016-11-24] MEDS: Heparin 5000 units/ml inj SUBQ SCH ×2 (09:57→21:19)
--- NOTE | 2016-11-24 11:09 | Pulmonology Progress Note ---
Assessment/Plan Assessment/Plan IMPRESSION: 1. Chronic obstructive pulmonary disease with acute exacerbation. 2. History of congestive heart failure. 3. Shortness of breath. 4. Diabetes. 5. Respiratory insufficiency. 6. Mild respiratory congestion. 7. Arthritis. 8. Advanced age. 9. Debility. PLAN care noted oxygen therapy monitor blood sugars for change robitussin as needed monitor fluid status follow up chest XR ordered and pending prednisone to off; tolerating po antibiotics dc planning per pulmonary ok impression, plan, and exam edited and reviewed in detail care discussed with RN Subjective Allergies: Coded Allergies: AZITHROMYCIN (Verified Allergy, Intermediate, ITCHINESS, 10/15/13) QUESTIONABLE ALLERGIC RXN BUT PT STARTED ITCHING AFTER BEING GIVEN A DOSE BUT PT NOT SURE Subjective comfortable at present no distress at present some wheezing intermittent but overall improved on taper Objective Last 24 Hour Vital Signs Date Time Temp Pulse Resp B/P Pulse Ox O2 Delivery O2 Flow Rate FiO2 11/24/16 09:48 67 142/56 11/24/16 08:00 98.1 67 18 142/56 98 Nasal Cannula 2.0 11/24/16 07:46 Nasal Cannula 2.0 28 11/24/16 07:45 68 18 97 Nasal Cannula 2.0 11/24/16 07:45 Nasal Cannula 11/24/16 07:44 97 Nasal Cannula 2.0 28 11/24/16 05:52 135/76 11/24/16 05:10 65 18 98 Nasal Cannula 2.0 28 11/24/16 04:00 97.7 67 20 135/76 96 Nasal Cannula 2.0 11/24/16 03:49 Nasal Cannula 2.0 28 11/24/16 03:00 Nasal Cannula 2.0 11/24/16 00:00 97.7 62 19 148/67 99 Nasal Cannula 2.0 11/23/16 23:32 73 20 99 Nasal Cannula 2.0 28 11/23/16 23:08 69 18 98 Nasal Cannula 2.0 28 11/23/16 23:00 Nasal Cannula 2.0 28 11/23/16 21:29 135/72 11/23/16 21:29 62 135/72 11/23/16 20:00 98.8 62 20 135/72 100 Nasal Cannula 2.0 11/23/16 19:33 Room Air 11/23/16 19:32 Room Air 1/8/17 19:32 Room Air 11/23/16 19:32 96 Room Air 11/23/16 16:00 98.2 69 20 140/66 100 Nasal Cannula 2.0 11/23/16 14:45 72 20 99 Nasal Cannula 2.0 28 11/23/16 14:40 71 18 98 Nasal Cannula 2.0 28 11/23/16 13:53 148/73 11/23/16 11:56 97.0 63 15 148/73 100 Room Air Intake and Output 11/23/16 11/24/16 19:00 07:00 Intake Total 1000 ml 240 ml Balance 1000 ml 240 ml Intake Oral 1000 ml 240 ml # Voids 2 4 # Bowel Movements 3 Objective PHYSICAL EXAMINATION: GENERAL: This is a well-developed female, overall comfortable, but has cough HEENT: Extraocular movements are grossly intact. Oropharynx is otherwise moist and no thrush. LUNGS: Moderate breath sounds but no rhonchi bilaterally. occasional wheeze CARDIAC: S1 and S2. Regular rate and rhythm without murmurs, rubs, or gallops. ABDOMEN: Soft, nontender, and nondistended. No hepatosplenomegaly. EXTREMITIES: No cyanosis or clubbing. There is minimal edema. NEUROLOGICAL: Grossly nonfocal, alert and oriented, able to move all extremities. reviewed and edited Current Medications Medications (Trade) Dose Ordered Sig/Haider Route PRN Reason Start Time Stop Time Status Last Admin Dose Admin Acetaminophen (Tylenol) 650 mg Q4H PRN ORAL Mild Pain/Temp > 100.5 11/19/16 13:45 12/19/16 13:44 11/22/16 05:28 Acetylcysteine (Mucomyst) 200 mg Q4HRT N 11/20/16 15:30 12/20/16 15:29 11/23/16 23:08 Albuterol/ Ipratropium (DuoNeb 0.5-3(2.5)mg/3ml) 3 ml Q4HRT N 11/23/16 11:00 11/28/16 10:59 11/24/16 05:26 Artificial Tears (Akwa-Tears) 1 drop Q4H PRN BOTH EYES Dry Eyes 11/19/16 15:45 12/19/16 15:44 11/21/16 09:34 Carvedilol (Coreg) 12.5 mg EVERY 12 HOURS ORAL 11/18/16 09:00 12/18/16 08:59 11/24/16 09:48 Dextrose (Dextrose 50%) STAT PRN IV Hypoglycemia 11/18/16 04:30 12/18/16 04:29 Fluticasone Propionate (Flonase) 2 spray DAILY NASAL 11/19/16 15:00 12/19/16 14:59 11/24/16 09:48 Furosemide (Lasix) 40 mg DAILY IV 11/18/16 09:00 12/18/16 08:59 11/24/16 09:50 Guaifenesin (Mucinex) 600 mg TWICE A DAY ORAL 11/20/16 18:00 12/20/16 17:59 11/24/16 09:51 Guaifenesin/ Dextromethorphan (Robitussin DM Syrup) 10 ml Q4H PRN ORAL For Cough 11/18/16 08:27 12/18/16 07:59 11/23/16 06:09 Heparin Sodium (Porcine) (Heparin 5000 units/ml) 5,000 units EVERY 12 HOURS SUBQ 11/18/16 09:00 12/18/16 08:59 11/24/16 09:57 Hydralazine HCl (Apresoline) 25 mg Q8HR ORAL 11/23/16 06:00 12/22/16 10:59 11/24/16 05:52 Insulin Aspart (NovoLOG) BEFORE MEALS AND HS SUBQ 11/18/16 06:30 12/18/16 06:29 11/24/16 06:36 Insulin Detemir (Levemir) 35 units BEDTIME SUBQ 11/20/16 21:00 12/20/16 20:59 11/23/16 21:31 Levofloxacin (Levaquin) 500 mg DAILY ORAL 11/22/16 09:00 11/29/16 08:59 11/24/16 09:51 Pantoprazole (Protonix) 40 mg DAILY ORAL 11/20/16 09:00 12/20/16 08:59 11/24/16 09:48 Patient Own Medication (Patient's Own Med) 1 ea QHS OPHTHALM 11/20/16 21:00 12/20/16 20:59 11/23/16 21:28 Prednisone (predniSONE) 5 mg DAILY ORAL 11/24/16 09:00 12/24/16 08:59 11/24/16 09:49 Timolol Maleate (Timoptic 0.5% Op Soln) 1 drop TWICE A DAY BOTH EYES 11/21/16 12:00 12/21/16 11:59 11/24/16 09:50 HANK KNUTSON Nov 24, 2016 11:09
[2016-11-24 12:00] VITALS: BP 141/55
[2016-11-24] MEDS: Guaifenesin/DM 10ml syrup ORAL PRN ×3 (12:17→21:53)
--- NOTE | 2016-11-24 13:05 | General Progress Note ---
Assessment/Plan Assessment/Plan COPD Exacerbation - see treatment List Diastolic CHF Check 2 D Echo Subjective Allergies: Coded Allergies: AZITHROMYCIN (Verified Allergy, Intermediate, ITCHINESS, 10/15/13) QUESTIONABLE ALLERGIC RXN BUT PT STARTED ITCHING AFTER BEING GIVEN A DOSE BUT PT NOT SURE Subjective Still SOB Objective Last 24 Hour Vital Signs Date Time Temp Pulse Resp B/P Pulse Ox O2 Delivery O2 Flow Rate FiO2 11/24/16 11:16 Room Air 11/24/16 11:16 Room Air 11/24/16 09:48 67 142/56 11/24/16 08:00 98.1 67 18 142/56 98 Nasal Cannula 2.0 11/24/16 07:46 Nasal Cannula 2.0 28 11/24/16 07:45 68 18 97 Nasal Cannula 2.0 11/24/16 07:45 Nasal Cannula 11/24/16 07:44 97 Nasal Cannula 2.0 28 11/24/16 05:52 135/76 11/24/16 05:10 65 18 98 Nasal Cannula 2.0 28 11/24/16 04:00 97.7 67 20 135/76 96 Nasal Cannula 2.0 11/24/16 03:49 Nasal Cannula 2.0 28 11/24/16 03:00 Nasal Cannula 2.0 11/24/16 00:00 97.7 62 19 148/67 99 Nasal Cannula 2.0 11/23/16 23:32 73 20 99 Nasal Cannula 2.0 28 11/23/16 23:08 69 18 98 Nasal Cannula 2.0 28 11/23/16 23:00 Nasal Cannula 2.0 28 11/23/16 21:29 135/72 11/23/16 21:29 62 135/72 11/23/16 20:00 98.8 62 20 135/72 100 Nasal Cannula 2.0 11/23/16 19:33 Room Air 11/23/16 19:32 Room Air 11/23/16 19:32 Room Air 11/23/16 19:32 96 Room Air 11/23/16 16:00 98.2 69 20 140/66 100 Nasal Cannula 2.0 11/23/16 14:45 72 20 99 Nasal Cannula 2.0 28 11/23/16 14:40 71 18 98 Nasal Cannula 2.0 28 11/23/16 13:53 148/73 Intake and Output 11/23/16 11/24/16 19:00 07:00 Intake Total 1000 ml 240 ml Balance 1000 ml 240 ml Intake Oral 1000 ml 240 ml # Voids 2 4 # Bowel Movements 3 Height (Feet): 5 Height (Inches): 5.00 Weight (Pounds): 240 Objective CV RR Lungs B wheezes Abd SNT. BS + E B +2 edema AVTAR LOVE Nov 24, 2016 13:05
[2016-11-24 16:47] VITALS: BP 147/97
[2016-11-24 20:00] VITALS: BP 156/63
[2016-11-24] MEDS: LUMIGAN EYE DROPS OPHTHALM SCH (21:16)
[2016-11-24] MEDS: Levemir Flexpen SUBQ SCH (21:17)
[2016-11-25] VITALS: BP 148/78
[2016-11-25] MEDS: DuoNeb 0.5-3(2.5)mg/3ml neb HHN SCH ×3 (03:00→11:00)
[2016-11-25] MEDS: Acetylcysteine 20% Soln 4ml HHN SCH ×3 (03:00→11:00)
[2016-11-25 04:00] VITALS: BP 136/50
[2016-11-25] MEDS: HydrALAZINE 25mg tab ORAL SCH (06:51)
[2016-11-25] MEDS: NovoLOG Insulin Flexpen SUBQ SCH ×2 (07:07→12:06)
[2016-11-25 08:00] VITALS: BP 158/74
--- NOTE | 2016-11-25 08:43 | Pulmonology Progress Note ---
Assessment/Plan Assessment/Plan IMPRESSION: 1. Chronic obstructive pulmonary disease with acute exacerbation. 2. History of congestive heart failure. 3. Shortness of breath. 4. Diabetes. 5. Respiratory insufficiency. 6. Mild respiratory congestion. 7. Arthritis. 8. Advanced age. 9. Debility. PLAN care noted oxygen therapy monitor blood sugars for change robitussin as needed monitor fluid status monitor imaging prednisone to off; tolerating po antibiotics ok dc planning per pulmonary ok impression, plan, and exam edited and reviewed in detail care discussed with RN Subjective Allergies: Coded Allergies: AZITHROMYCIN (Verified Allergy, Intermediate, ITCHINESS, 10/15/13) QUESTIONABLE ALLERGIC RXN BUT PT STARTED ITCHING AFTER BEING GIVEN A DOSE BUT PT NOT SURE Subjective comfortable at present no distress at present minimal cough and wheeze Objective Last 24 Hour Vital Signs Date Time Temp Pulse Resp B/P Pulse Ox O2 Delivery O2 Flow Rate FiO2 11/25/16 07:14 67 20 Nasal Cannula 2.0 28 11/25/16 07:14 Nasal Cannula 2.0 28 11/25/16 07:02 65 18 100 Nasal Cannula 2.0 11/25/16 07:00 100 Nasal Cannula 2.0 28 11/25/16 06:51 136/50 11/25/16 04:00 97.7 90 21 136/50 95 Nasal Cannula 2.0 11/25/16 03:06 Nasal Cannula 2.0 28 11/25/16 03:05 Nasal Cannula 2.0 28 11/25/16 00:00 97.7 76 21 148/78 97 Nasal Cannula 2.0 11/24/16 23:20 Nasal Cannula 2.0 28 11/24/16 23:20 Nasal Cannula 2.0 28 11/24/16 21:53 156/63 11/24/16 21:16 83 156/63 11/24/16 20:00 97.5 83 18 156/63 96 Nasal Cannula 2.0 11/24/16 19:30 97 Nasal Cannula 2.0 28 11/24/16 19:30 Nasal Cannula 2.0 28 11/24/16 19:30 Nasal Cannula 2.0 28 11/24/16 19:30 Nasal Cannula 2.0 28 11/24/16 16:47 98.2 71 18 147/97 97 Nasal Cannula 2.0 11/24/16 15:35 70 20 Nasal Cannula 2.0 28 11/24/16 15:25 66 18 Nasal Cannula 2.0 11/24/16 14:04 141/55 11/24/16 12:00 96.8 68 18 141/55 98 Nasal Cannula 2.0 11/24/16 11:16 Room Air 11/24/16 11:16 Room Air 11/24/16 09:48 67 142/56 Intake and Output 11/24/16 11/25/16 19:00 07:00 Intake Total 660 ml 400 ml Balance 660 ml 400 ml Intake Oral 660 ml 400 ml # Voids 3 3 # Bowel Movements 1 Objective PHYSICAL EXAMINATION: GENERAL: This is a well-developed female, overall comfortable, but has cough HEENT: Extraocular movements are grossly intact. Oropharynx is otherwise moist and no thrush. LUNGS: Moderate breath sounds but with minimal rhonchi bilaterally. minimal wheeze CARDIAC: S1 and S2. Regular rate and rhythm without murmurs, rubs, or gallops. ABDOMEN: Soft, nontender, and nondistended. No hepatosplenomegaly. EXTREMITIES: No cyanosis or clubbing. There is minimal edema. NEUROLOGICAL: Grossly nonfocal, alert and oriented, able to move all extremities. reviewed and edited Current Medications Medications (Trade) Dose Ordered Sig/Haider Route PRN Reason Start Time Stop Time Status Last Admin Dose Admin Acetaminophen (Tylenol) 650 mg Q4H PRN ORAL Mild Pain/Temp > 100.5 11/19/16 13:45 12/19/16 13:44 11/22/16 05:28 Acetylcysteine (Mucomyst) 200 mg Q4HRT N 11/20/16 15:30 12/20/16 15:29 11/25/16 07:04 Albuterol/ Ipratropium (DuoNeb 0.5-3(2.5)mg/3ml) 3 ml Q4HRT HHN 11/23/16 11:00 11/28/16 10:59 11/25/16 07:03 Artificial Tears (Akwa-Tears) 1 drop Q4H PRN BOTH EYES Dry Eyes 11/19/16 15:45 12/19/16 15:44 11/21/16 09:34 Carvedilol (Coreg) 12.5 mg EVERY 12 HOURS ORAL 11/18/16 09:00 12/18/16 08:59 11/24/16 21:16 Dextrose (Dextrose 50%) STAT PRN IV Hypoglycemia 11/18/16 04:30 12/18/16 04:29 Fluticasone Propionate (Flonase) 2 spray DAILY NASAL 11/19/16 15:00 12/19/16 14:59 11/24/16 09:48 Furosemide (Lasix) 40 mg DAILY IV 11/18/16 09:00 12/18/16 08:59 11/24/16 09:50 Guaifenesin (Mucinex) 600 mg TWICE A DAY ORAL 11/20/16 18:00 12/20/16 17:59 11/24/16 17:06 Guaifenesin/ Dextromethorphan (Robitussin DM Syrup) 10 ml Q4H PRN ORAL For Cough 11/18/16 08:27 12/18/16 07:59 11/24/16 21:53 Heparin Sodium (Porcine) (Heparin 5000 units/ml) 5,000 units EVERY 12 HOURS SUBQ 11/18/16 09:00 12/18/16 08:59 11/24/16 21:19 Hydralazine HCl (Apresoline) 25 mg Q8HR ORAL 11/23/16 06:00 12/22/16 10:59 11/25/16 06:51 Insulin Aspart (NovoLOG) BEFORE MEALS AND HS SUBQ 11/18/16 06:30 12/18/16 06:29 11/25/16 07:07 Insulin Detemir (Levemir) 35 units BEDTIME SUBQ 11/20/16 21:00 12/20/16 20:59 11/24/16 21:17 Levofloxacin (Levaquin) 500 mg DAILY ORAL 11/22/16 09:00 11/29/16 08:59 11/24/16 09:51 Pantoprazole (Protonix) 40 mg DAILY ORAL 11/20/16 09:00 12/20/16 08:59 11/24/16 09:48 Patient Own Medication (Patient's Own Med) 1 ea QHS OPHTHALM 11/20/16 21:00 12/20/16 20:59 11/24/16 21:16 Prednisone (predniSONE) 5 mg DAILY ORAL 11/24/16 09:00 12/24/16 08:59 11/24/16 09:49 Timolol Maleate (Timoptic 0.5% Op Soln) 1 drop TWICE A DAY BOTH EYES 11/21/16 12:00 12/21/16 11:59 11/24/16 17:07 HANK KNUTSON Nov 25, 2016 08:43
[2016-11-25 09:15] VITALS: BP 158/74
[2016-11-25] MEDS: Carvedilol 12.5mg tab ORAL SCH (09:15)
[2016-11-25] MEDS: PredniSONE 5mg tab ORAL SCH (09:16)
[2016-11-25] MEDS: guaiFENesin 600mg tab ORAL SCH (09:16)
[2016-11-25] MEDS: Levofloxacin 500mg tab ORAL SCH (09:17)
[2016-11-25] MEDS: Timolol 0.5% Op Soln 2.5ml BOTH EYES SCH (09:18)
[2016-11-25] MEDS: Flonase Nasal Inhaler 16gm NASAL SCH (09:18)
[2016-11-25] MEDS: Heparin 5000 units/ml inj SUBQ SCH (09:22)
--- NOTE | 2016-11-25 09:34 | General Progress Note ---
Assessment/Plan Assessment/Plan COPD Exacerbation - better Diastolic CHF? 2 D Echo WNL DC home Subjective Allergies: Coded Allergies: AZITHROMYCIN (Verified Allergy, Intermediate, ITCHINESS, 10/15/13) QUESTIONABLE ALLERGIC RXN BUT PT STARTED ITCHING AFTER BEING GIVEN A DOSE BUT PT NOT SURE Subjective Less SOB Objective Last 24 Hour Vital Signs Date Time Temp Pulse Resp B/P Pulse Ox O2 Delivery O2 Flow Rate FiO2 11/25/16 09:15 67 158/74 11/25/16 08:00 98.6 67 24 158/74 98 Nasal Cannula 2.0 11/25/16 07:14 67 20 Nasal Cannula 2.0 28 11/25/16 07:14 Nasal Cannula 2.0 28 11/25/16 07:02 65 18 100 Nasal Cannula 2.0 11/25/16 07:00 100 Nasal Cannula 2.0 28 11/25/16 06:51 136/50 11/25/16 04:00 97.7 90 21 136/50 95 Nasal Cannula 2.0 11/25/16 03:06 Nasal Cannula 2.0 28 11/25/16 03:05 Nasal Cannula 2.0 28 11/25/16 00:00 97.7 76 21 148/78 97 Nasal Cannula 2.0 11/24/16 23:20 Nasal Cannula 2.0 28 11/24/16 23:20 Nasal Cannula 2.0 28 11/24/16 21:53 156/63 11/24/16 21:16 83 156/63 11/24/16 20:00 97.5 83 18 156/63 96 Nasal Cannula 2.0 11/24/16 19:30 97 Nasal Cannula 2.0 28 11/24/16 19:30 Nasal Cannula 2.0 28 11/24/16 19:30 Nasal Cannula 2.0 28 11/24/16 19:30 Nasal Cannula 2.0 28 11/24/16 16:47 98.2 71 18 147/97 97 Nasal Cannula 2.0 11/24/16 15:35 70 20 Nasal Cannula 2.0 28 11/24/16 15:25 66 18 Nasal Cannula 2.0 11/24/16 14:04 141/55 11/24/16 12:00 96.8 68 18 141/55 98 Nasal Cannula 2.0 11/24/16 11:16 Room Air 11/24/16 11:16 Room Air 11/24/16 09:48 67 142/56 Intake and Output 11/24/16 11/25/16 19:00 07:00 Intake Total 660 ml 400 ml Balance 660 ml 400 ml Intake Oral 660 ml 400 ml # Voids 3 3 # Bowel Movements 1 Height (Feet): 5 Height (Inches): 5.00 Weight (Pounds): 240 Objective CV RR Lungs B wheezes Abd SNT. BS + E B +2 edema AVTAR LOVE Nov 25, 2016 09:34
[2016-11-25] MEDS ORDERED: NOVOLOG100 UNITS1 SUBQ (09:43)
[2016-11-25] MEDS ORDERED: DUONEB 0.5-3(2.53 ML HHN (09:43)
[2016-11-25] MEDS ORDERED: TIMOPTIC 0.5%1 DRO1 BOTH EYES (09:43)
[2016-11-25] MEDS ORDERED: FLONASE1 SPRAYS NASAL (09:43)
[2016-11-25] MEDS ORDERED: PROTONIX40 MG ORAL (09:43)
[2016-11-25] MEDS ORDERED: LEVEMIR FL100 UNIT/1 SUBQ (09:43)
[2016-11-25] MEDS ORDERED: COREG12.5 MG ORAL (09:43)
[2016-11-25] MEDS: Guaifenesin/DM 10ml syrup ORAL PRN (12:05)
[2016-11-25] MEDS ORDERED: FUROSEMIDE20 M1 ORAL (12:55)
--- NOTE | 2016-11-26 10:59 | Discharge Summary ---
Discharge Summary Hospital Course Date of Admission Nov 17, 2016 at 21:23 Date of Discharge Nov 25, 2016 at 13:45 Admitting Diagnosis acute COPD exacerbation Reason for Hospitalization: SOB, respiratory distress HPI Jossie Medina is a 81 year old female who was admitted on Nov 17, 2016 at 21:23 for Asthma Exacerbation 81-year-old female with history of congestive heart failure, history of pacemaker, and history of chronic obstructive pulmonary disease, presented to the emergency room with increasing shortness of breath and increasing debility. The patient with worsening overall respiratory distress. Presented with cough, minimally productive, wheezing and congestion. Seen and evaluated in the ER Noted to have significant oxygen desaturation Started on antibiotics and Solu-Medrol. Denies fevers, chills No abdominal pain. No nausea or vomiting. No recent travel. No ill contacts. Consultations pulmo dr Bello Hospital Course supplemental O2, HHN steroids and taper, empiric abx CXR no evidence of acute cardiopulmonary disease antitussive prn Lasix with caution, low dose monitor I/O, renal parameters, lytes BP management with current regimen, stable BS management with long acting insulin and short acting as needed clinically improved, fup CXR negative stable, dc home with HH off steroids and antibiotics fup with PMD Discharge Medications New Medications: Carvedilol (Coreg) 12.5 Mg Tablet 12.5 MG ORAL EVERY 12 HOURS for 30 Days, TAB Fluticasone Propionate (Fluticasone Propionate) 16 Gm [place].susp 2 SPRAY NASAL DAILY for 30 Days, #1 EA per nostril Insulin Aspart (Novolog Flexpen) 100 Unit/1 Ml Insuln.pen 0 UNITS SUBQ BEFORE MEALS AND HS for 30 Days, #1 EA Insulin Detemir (Levemir Flexpen) 100 Unit/1 Ml Insuln.pen 35 UNITS SUBQ BEDTIME for 30 Days, #1 EA Ipratropium/Albuterol Sulfate (DuoNeb 0.5-3(2.5)mg/3ml) 3 Ml Ampul.neb 3 ML HHN Q4HRT for 30 Days, #1 EA Pantoprazole* (Protonix*) 40 Mg Tablet.dr 40 MG ORAL DAILY for 30 Days, #30 TAB Timolol Maleate (Timolol Maleate) 5 Ml Drops 1 DROP BOTH EYES TWICE A DAY for 30 Days, #10 ML Continued Medications: Furosemide* (Lasix*) 20 Mg Tablet 20 MG ORAL DAILY, TAB Discontinued Medications: Carvedilol (Coreg) 12.5 Mg Tablet 12.5 MG ORAL EVERY 12 HOURS, TAB Furosemide (Furosemide) 40 Mg/5 Ml Solution 80 MG ORAL DAILY, ML Insulin Aspart (Novolog) 100 Unit/1 Ml Cartridge 100 UNIT SQ Insulin Glargine (Lantus) 100 Unit/1 Ml Insuln.pen 0 SUBQ BEDTIME, #1 EA 0 Refills Valsartan (Diovan) 320 Mg Tablet 320 MG ORAL DAILY, TAB Discharge Condition Upon Discharge: improving, stable Discharge Disposition Patient was discharged to Home with Home Health(06) Discharge Diagnoses: (1) Acute exacerbation of chronic obstructive pulmonary disease (2) Dyspnea (3) COPD (chronic obstructive pulmonary disease) (4) History of CHF (congestive heart failure) (5) Pacemaker (6) HTN (hypertension) (7) Diabetes (8) DM (diabetes mellitus), type 1 uncontrolled with peripheral vascular complication Brigida Richards NP ([place]) Nov 26, 2016 10:59
== END 2016-11-25 13:45 | disposition home health service (06) | DRG 191 ==
LOC: EMR 21:15 → 4E 21:23 → EDBEDREQSVC 11-18 00:53 → EDBEDREQ 11-18 00:53 → EDBEDREQTM 11-18 00:53 → EDBEDREQ 11-18 01:10
DX: J44.1 Chronic obstructive pulmonary disease with (acute) exacerbation (principal); J45.901 Unspecified asthma with (acute) exacerbation; E10.51 Type 1 diabetes mellitus with diabetic peripheral angiopathy without gangrene; I11.0 Hypertensive heart disease with heart failure; I50.32 Chronic diastolic (congestive) heart failure; E78.5 Hyperlipidemia, unspecified; E03.9 Hypothyroidism, unspecified; E66.9 Obesity, unspecified; Z68.39 Body mass index [BMI] 39.0-39.9, adult; Z95.0 Presence of cardiac pacemaker; M19.90 Unspecified osteoarthritis, unspecified site
CPT/HCPCS: 36415; 36600; 71010; 80048; 80053; 82550; 82553; 82803; 82962; 83605; 83880; 84484; 85007; 85025; 87070; 87205; 93005; 93306; 94640; 94664; 94760; J1815; J7620; S5561

== ENCOUNTER 2017-03-09 10:30 | Inpatient (IN) | payer MEDICARE, MEDICAID ==
[~2017-03-09] VITALS: Ht 165.1 cm; Wt 113.4 kg
[~2017-03-09 10:30] MED LIST changes: +COREG12.5 MG ORAL; +DUONEB 0.5-3(2.53 ML HHN; +FUROSEMIDE20 M1 ORAL; +FUROSEMIDE40 MG/5 ML ORAL; +LANTUS SOL100 UNIT/1 SUBQ; +LEVEMIR FL100 UNIT/1 SUBQ; +NOVOLOG100 UNIT/4 SQ; +NOVOLOG100 UNITS1 SUBQ; +PROTONIX40 MG ORAL; +TIMOPTIC 0.5%1 DRO1 BOTH EYES
--- NOTE | 2017-03-09 10:51 | Emergency Room Report ---
History of Present Illness General Chief Complaint: Chest Pain Source: Patient, Medical Record Present Illness HPI Patient has a history of COPD pleural effusion CHF diabetes high blood pressure acute coronary syndrome and pacemaker. Patient states that she develop acute onset of chest pain shortness breath since this morning. She denies any leg pain leg swelling. Symptoms noted to be severe. Patient denies any nausea vomiting diarrhea chills. The pain is intermittent but dull and achy lasting for greater than 10 minutes. Patient denies any syncope or palpitations.No other modifying factors. No other associated signs and symptoms. No other complaints were noted. Allergies: Coded Allergies: AZITHROMYCIN (Verified Allergy, Intermediate, ITCHINESS, 10/15/13) QUESTIONABLE ALLERGIC RXN BUT PT STARTED ITCHING AFTER BEING GIVEN A DOSE BUT PT NOT SURE Patient History Past Medical History: DM, HTN, CAD, CHF, asthma, COPD, other - pacemaker Past Surgical History: pacemaker Pertinent Family History: none Social History: Denies: alcohol use, drug use, smoking Reviewed Nursing Documentation: PMH: Agreed, PSxH: Agreed Nursing Documentation-PMH Past Medical History: No History, Except For Hx Cardiac Problems: Yes Hx Hypertension: Yes Hx Pacemaker: Yes Hx Asthma: Yes Hx COPD: Yes Hx Diabetes: Yes Hx Cancer: No Hx Gastrointestinal Problems: No Hx Neurological Problems: No Hx Tremors: Yes Hx Vertigo: Yes Hx Dizziness: Yes Hx Syncope: Yes Hx Headaches: Yes Hx Weakness: Yes Hx Fatigue: Yes Review of Systems All Other Systems: negative except mentioned in HPI Physical Exam Vital Signs Date Time Temp Pulse Resp B/P Pulse Ox O2 Delivery O2 Flow Rate FiO2 03/09/17 10:40 97.2 79 20 148/71 99 Room Air Sp02 EP Interpretation: reviewed, normal General Appearance: normal inspection, well appearing, no apparent distress, alert Head: atraumatic Eyes: bilateral eye normal inspection ENT: normal ENT inspection, hearing grossly normal, normal voice Neck: normal inspection, full range of motion, supple, no bony tend Respiratory: normal inspection, lungs clear, normal breath sounds, no respiratory distress, no retraction, no wheezing Cardiovascular #1: regular rate, rhythm, no edema Gastrointestinal: normal inspection, normal bowel sounds, non tender, soft, no guarding, no hernia Genitourinary: no CVA tenderness Musculoskeletal: normal inspection, back normal, normal range of motion Neurologic: normal inspection, alert, responsive, speech normal Psychiatric: normal inspection, judgement/insight normal, mood/affect normal Skin: normal inspection, normal color, no rash Medical Decision Making Diagnostic Impression: Primary Impression: ACS (acute coronary syndrome) ER Course Patient presented to the emergency department today complaining of chest pain. Differential diagnoses include acute coronary syndrome, pulmonary embolism, pneumothorax, chest wall pain, pleurisy, pericarditis, acute anxiety reaction just to name a few. Given the severity of the patient's presentation I felt this is a highly complex patient. This patient required extensive workup. CBC , chemistry, EKG, chest x-ray, cardiac enzymes, liver profile were all obtained. 12-lead EKG performed for nontraumatic chest pain. RS documentation: EKG was performed. Please refer to below for interpretation. Given patient's presentation and risk factors I feel the patient require admission to the hospital. Case was discussed in detail with Dr. Bryant. Patient will be admitted for further workup. Labs Test 03/09/17 11:05 White Blood Count 8.2 K/UL (4.8-10.8) Red Blood Count 5.96 M/UL (4.20-5.40) Hemoglobin 13.7 G/DL (12.0-16.0) Hematocrit 47.0 % (37.0-47.0) Mean Corpuscular Volume 79 FL (80-99) Mean Corpuscular Hemoglobin 22.9 PG (27.0-31.0) Mean Corpuscular Hemoglobin Concent 29.1 G/DL (32.0-36.0) Red Cell Distribution Width 13.1 % (11.6-14.8) Platelet Count 238 K/UL (150-450) Mean Platelet Volume 6.6 FL (6.5-10.1) Neutrophils (%) (Auto) 72.9 % (45.0-75.0) Lymphocytes (%) (Auto) 18.1 % (20.0-45.0) Monocytes (%) (Auto) 6.0 % (1.0-10.0) Eosinophils (%) (Auto) 2.3 % (0.0-3.0) Basophils (%) (Auto) 0.8 % (0.0-2.0) Prothrombin Time 10.6 SEC (9.30-11.50) Prothromb Time International Ratio 1.0 (0.9-1.1) Activated Partial Thromboplast Time 24 SEC (23-33) Sodium Level 137 mEQ/L (135-145) Potassium Level 4.7 mEQ/L (3.4-4.9) Chloride Level 98 mEQ/L (98-107) Carbon Dioxide Level 22 mEQ/L (20-30) Anion Gap 17 (5-15) Blood Urea Nitrogen 23 mg/dL (7-23) Creatinine 1.1 mg/dL (0.5-0.9) Estimat Glomerular Filtration Rate mL/min (>60) Glucose Level 235 mg/dL (74-106) Calcium Level 10.4 mg/dL (8.6-10.2) Total Bilirubin 0.2 mg/dL (0.0-1.2) Aspartate Amino Transf (AST/SGOT) 15 U/L (5-40) Alanine Aminotransferase (ALT/SGPT) 16 U/L (3-33) Alkaline Phosphatase 94 U/L (35-104) Total Creatine Kinase 108 U/L (26-140) Creatine Kinase MB 2.1 ng/mL (< 3.8) Creatine Kinase MB Relative Index 1.9 Troponin I < 0.30 ng/mL (<=0.30) Pro-B-Type Natriuretic Peptide 199 pg/mL (0-450) Total Protein 6.9 g/dL (6.6-8.7) Albumin 3.6 g/dL (3.5-5.2) Globulin 3.3 g/dL Albumin/Globulin Ratio 1.0 (1.0-2.7) Lipase 29 U/L (< 60) EKG Diagnostic Results Rate: normal Rhythm: NSR ST Segments: no acute changes Rhythm Strip Diag. Results EP Interpretation: yes Rate: 72 Rhythm: NSR, no PVC's, no ectopy Chest X-Ray Diagnostic Results EP Interpretation: Yes Findings: no consolidation, no effusion, no pneumothorax, no acute cardiopulmonary disease, other - pacemaker Number of Views: 1 Last Vital Signs Date Time Temp Pulse Resp B/P Pulse Ox O2 Delivery O2 Flow Rate FiO2 03/09/17 10:40 97.2 79 20 148/71 99 Room Air Status: improved Disposition: ADMITTED INPATIENT Condition: Serious VERA NARANJO M.D. Mar 09, 2017 10:51
[2017-03-09 10:58] VITALS: BP 148/71
[2017-03-09] MEDS ORDERED: Aspirin Baby 81mg ORAL ONE (11:00)
[2017-03-09 11:20] LABS: BASOPHILS % (AUTO) 0.8 % (0.0-2.0); EOSINOPHILS % (AUTO) 2.3 % (0.0-3.0); LYMPHOCYTES % (AUTO) 18.1 % (20.0-45.0); MEAN CORPUSCULAR HEMOGLOBIN 22.9 PG (27.0-31.0); MEAN CORPUSCULAR HGB CONC 29.1 G/DL (32.0-36.0); MEAN CORPUSCULAR VOLUME 79 FL (80-99); MEAN PLATELET VOLUME 6.6 FL (6.5-10.1); NEUTROPHILS % (AUTO) 72.9 % (45.0-75.0); PLATELET COUNT 238 K/UL (150-450); RED BLOOD COUNT 5.96 M/UL (4.20-5.40); RED CELL DISTRIBUTION WIDTH 13.1 % (11.6-14.8); WHITE BLOOD COUNT 8.2 K/UL (4.8-10.8)
--- NOTE | 2017-03-09 11:27 | Diagnostic Imaging Report ---
Indication: COUGH, shortness of breath Technique: One view of the chest Comparison: 11/22/2016 Findings: There is some scarring in the right perihilar region again demonstrated. Some atelectasis is seen at the left lung base. The lungs and pleural spaces otherwise clear. There is a left chest bifocal pacemaker. Heart size is borderline enlarged Impression: No acute process. Findings as noted
[2017-03-09 11:34] LABS: PROTHROMBIN TIME 10.6 SEC (9.30-11.50)
[2017-03-09 11:37] LABS: ALANINE AMINOTRANSFERASE 16 U/L (3-33); ANION GAP 17 (5-15); ASPARTATE AMINO TRANSFERASE 15 U/L (5-40); CALCIUM 10.4 mg/dL (8.6-10.2); CARBON DIOXIDE 22 mEQ/L (20-30); CHLORIDE 98 mEQ/L (98-107); CREATININE 1.1 mg/dL (0.5-0.9); HEMOLYSIS 21; LIPASE 29 U/L (< 60); POTASSIUM 4.7 mEQ/L (3.4-4.9); SODIUM 137 mEQ/L (135-145); TOTAL PROTEIN 6.9 g/dL (6.6-8.7)
[2017-03-09 11:38] LABS: TROPONIN I < 0.30 ng/mL (<=0.30)
[2017-03-09 11:48] LABS: CKMB 2.1 ng/mL (< 3.8)
[2017-03-09 13:00] VITALS: BP 150/78
[2017-03-09] MEDS ORDERED: Morphine Sulfate 2mg/ml Inj IVP ONE (14:00)
[2017-03-09 14:35] VITALS: BP 158/76
[2017-03-09 16:14] VITALS: BP 135/70
[2017-03-09] MEDS ORDERED: AZOPT10 ML BOTH EYES (16:14)
[2017-03-09] MEDS ORDERED: LUMIGAN2.5 ML BOTH EYES (16:14)
[2017-03-09] MEDS ORDERED: COREG12.5 MG ORAL (16:14)
[2017-03-09] MEDS ORDERED: POTASSIUM CHLO20 ME1 PO (16:14)
[2017-03-09] MEDS ORDERED: LANTUS SOL100 UNIT/1 SUBQ (16:14)
[2017-03-09] MEDS ORDERED: DIOVAN320 MG ORAL (16:14)
[2017-03-09] MEDS ORDERED: DuoNeb 0.5-3(2.5)mg/3ml neb HHN PRN (17:30)
[2017-03-09] MEDS ORDERED: HYDROmorphone 1mg/ml Carpuject IVP PRN (17:30)
[2017-03-09] MEDS ORDERED: Hydromorphone 0.5mg/0.5ml inj IVP PRN (17:36)
[2017-03-09] MEDS: 1/2NS w/KCl 20mEq 1000ml 1,000 ML IV SCH (18:06)
[2017-03-09] MEDS: Enoxaparin 30mg Inj SUBQ SCH (18:14)
[2017-03-09] MEDS: Insulin NovoLOG Flexpen S/S (Mod) SUBQ SCH ×2 (18:16→21:09)
[2017-03-09] MEDS ORDERED: DuoNeb 0.5-3(2.5)mg/3ml neb HHN SCH (19:00)
[2017-03-09 20:32] VITALS: BP 152/76
[2017-03-09] MEDS ORDERED: NovoLOG Insulin Flexpen SUBQ SCH (21:00)
[2017-03-09] MEDS: Carvedilol 12.5mg tab ORAL SCH (21:09)
[2017-03-09] MEDS: Timolol 0.5% Op Soln 2.5ml BOTH EYES SCH (21:09)
[2017-03-09] MEDS ORDERED: guaiFENesin DM 100mg/5ml ORAL PRN (22:00)
[2017-03-09] MEDS ORDERED: Guaifenesin/DM 10ml syrup ORAL PRN (22:45)
[2017-03-10] MEDS: guaiFENesin 100mg/5ml Liq ud ORAL PRN ×3 (00:04→17:40)
[2017-03-10] MEDS: Levalbuterol Inh UD 1.25mg/0.5ml HHN SCH ×4 (00:39→21:07)
--- NOTE | 2017-03-10 01:48 | History and Physical Report ---
DATE OF ADMISSION: 03/09/2017 CHIEF COMPLAINT: Shortness of breath and generalized pain including atypical chest pain. HISTORY OF PRESENT ILLNESS: This is an 81-year-old female, who has been admitted to this hospital multiple times with the same complaints, namely shortness of breath and generalized pain including atypical chest pain. PAST MEDICAL HISTORY: 1. COPD. 2. Type 2 diabetes mellitus. 3. Morbid obesity. 4. Diastolic heart failure. 5. Degenerative joint disease. 6. Status post pacemaker. 7. Coronary artery disease. 8. Cataract. 9. "History of sarcoid," although there is very little data to support it. MEDICATIONS: Home medications, Lum[place] eye drops, Azopt eye drops, Coreg, fluticasone inhaler, Lasix, NovoLog, FlexPen, Lantus, Atrovent inhaler, Protonix, potassium chloride, timolol eye drops, and Diovan. ALLERGIES: Azithromycin. FAMILY HISTORY: Unremarkable. SOCIAL HISTORY: Habits, nonsmoker and nondrinker. There is no history of illicit drug abuse. REVIEW OF SYSTEMS: HEENT: Hearing and eyesight are normal. Endocrine: She has history of type 2 diabetes mellitus. Respiratory: Please refer to history of present illness and past medical history. Neurologic: No history of stroke, syncope, or Parkinson disease. Cardiovascular: She has atypical chest pain. Genitourinary: She denies dysuria, frequency, or hematuria. PHYSICAL EXAMINATION: GENERAL: This is an elderly morbidly obese female, who is in no acute distress. VITAL SIGNS: Blood pressure 135/70, pulse 72 and regular, respirations 18, and temperature 97.4 degrees. HEENT: The head is normocephalic and atraumatic. Pupils are equal, round, and reactive to light and accommodation consensually. NECK: Supple. Trachea midline. There was no lymphadenopathy or thyromegaly. LUNGS: Clear to auscultation and percussion bilaterally. HEART: Regular rate and rhythm without rubs, murmurs, or gallops. ABDOMEN: Soft. Bowel sounds are active. EXTREMITIES: No clubbing, cyanosis, or edema. NEUROLOGICAL: She is alert and oriented x4. Cranial nerves II through XII intact. LABORATORY AND ANCILLARY DATA: CMP and CBC all within normal limits except glucose 235. Troponin level is less than 0.3 x1. EKG, normal sinus rhythm, no signs of acute ischemia. Chest x-ray, no acute disease. ASSESSMENT: 1. Atypical chest pain. 2. Chronic obstructive pulmonary disease exacerbation. PLAN: 1. Continue home medications. 2. Continue rule out RI protocol. Abbey Lozano M.D. DR: EDDIE JOB#: [id number] CC:
[2017-03-10] MEDS: Insulin NovoLOG Flexpen S/S (Mod) SUBQ SCH ×4 (06:53→22:13)
[2017-03-10 08:16] VITALS: BP 156/72
[2017-03-10] MEDS: Carvedilol 12.5mg tab ORAL SCH (08:16)
[2017-03-10] MEDS: Flonase Nasal Inhaler 16gm NASAL SCH (08:16)
[2017-03-10] MEDS: Timolol 0.5% Op Soln 2.5ml BOTH EYES SCH ×2 (08:17→17:39)
[2017-03-10] MEDS: Loperamide 2mg cap ORAL PRN (10:36)
[2017-03-10] MEDS ORDERED: NS 275ml ONE (10:46)
[2017-03-10] MEDS ORDERED: Tubing IV Secondary IV ONE (10:46)
[2017-03-10 11:42] VITALS: BP 162/81
--- NOTE | 2017-03-10 12:31 | General Progress Note ---
Assessment/Plan Assessment/Plan Chest Pain - Troponins negative. Cardiology to advise. COPD exacerbation -improving. Subjective Allergies: Coded Allergies: AZITHROMYCIN (Verified Allergy, Intermediate, ITCHINESS, 10/15/13) QUESTIONABLE ALLERGIC RXN BUT PT STARTED ITCHING AFTER BEING GIVEN A DOSE BUT PT NOT SURE Subjective Atypical CP. Soft Stool Objective Last 24 Hour Vital Signs Date Time Temp Pulse Resp B/P Pulse Ox O2 Delivery O2 Flow Rate FiO2 03/10/17 11:42 97.3 60 20 162/81 95 Nasal Cannula 2.0 03/10/17 08:16 97.7 60 20 156/72 96 Nasal Cannula 2.0 03/10/17 08:16 60 156/77 03/10/17 08:00 60 03/10/17 07:06 65 18 99 Room Air 03/10/17 07:06 64 18 99 Room Air 03/10/17 04:00 60 03/10/17 00:50 65 18 100 Room Air 03/10/17 00:40 62 18 99 Room Air 03/10/17 00:00 61 03/09/17 21:09 66 152/76 03/09/17 20:35 Room Air 03/09/17 20:34 66 18 99 Room Air 03/09/17 20:32 98.4 71 19 152/76 Room Air 03/09/17 20:00 62 03/09/17 16:14 97.4 72 18 135/70 98 Room Air 03/09/17 16:00 72 03/09/17 15:30 72 03/09/17 14:38 97.2 78 17 148/71 99 Room Air 03/09/17 14:35 97.2 78 14 158/76 96 Room Air 03/09/17 14:32 97.2 03/09/17 13:00 97.2 68 17 150/78 98 Room Air Intake and Output 03/09/17 03/10/17 19:00 07:00 Intake Total 120 ml Balance 120 ml Intake Oral 120 ml Height (Feet): 5 Height (Inches): 5.00 Weight (Pounds): 250 Objective Morbidly Obese. CV RR Lungs increased exp. with wheezes Abd SNT. Bs + E No CCE AVTAR LOVE Mar 10, 2017 12:31
[2017-03-10] MEDS: 1/2NS w/KCl 20mEq 1000ml 1,000 ML IV SCH (14:30)
[2017-03-10 15:55] VITALS: BP 145/54
[2017-03-10] MEDS: Enoxaparin 30mg Inj SUBQ SCH (17:40)
[2017-03-10 20:00] VITALS: BP 145/65
[2017-03-10] MEDS: Carvedilol 25mg Tab ORAL SCH (22:08)
[2017-03-11] VITALS: BP 146/66
[2017-03-11] MEDS: Levalbuterol Inh UD 1.25mg/0.5ml HHN SCH ×4 (01:34→19:41)
--- NOTE | 2017-03-11 03:58 | Consultation ---
DATE OF CONSULTATION: 03/10/2017 CARDIOLOGY CONSULTATION CONSULTING PHYSICIAN: Darci Jose M.D. REQUESTING PHYSICIAN: Abbey Lozano M.D. REASON FOR EVALUATION.: Chest pain. HISTORY OF PRESENT ILLNESS: This is an 81-year-old female with several risk factors for accelerated coronary artery disease. She has been hospitalized on several occasions. She presented to the hospital yesterday with shortness of breath and chest pain. She ruled out for myocardial infarction. She has complained of decreasing exercise capacity and some leg swelling, left greater than right for several days. I have been asked to assist with further diagnostic care. PAST MEDICAL HISTORY: Glaucoma, chronic obstructive pulmonary disease, type 2 diabetes mellitus, history of diastolic congestive heart failure, osteoarthritis, coronary artery disease, bilateral cataracts, possible history of sarcoidosis, and permanent pacemaker. MEDICATIONS: Reviewed and reconciled. ALLERGIES: Azithromycin. FAMILY HISTORY: Noncontributory. SOCIAL HISTORY: Nonsmoker. No alcohol use. No history of drug abuse. REVIEW OF SYSTEMS: She has glaucoma. Her hearing is good, as she is on oral therapy for diabetes. There is no history of thyroid disorder. She does have chronic obstructive pulmonary disease. She is nonsmoker. She does have a history of coronary disease, hypertension, and diastolic heart failure. Her cholesterol parameters are not presently known. She has not had any change in bowel habits or urinary symptoms. There is no history of seizure or stroke. Her pacemaker was implanted several years ago by Dr. Sakshi Conroy. She had it interrogated in the last few months. PHYSICAL EXAMINATION: GENERAL: Moderately obese, presently in no acute distress. VITAL SIGNS: Blood pressure 145/65, pulse 64, respirations 18, afebrile, and oxygen saturation on room air is 98%. HEENT: Normocephalic and atraumatic. Conjunctivae are pink. Oropharynx clear. NECK: Supple. Jugular venous pressure is slightly elevated. No accessory muscle use. No bruits. LUNGS: Clear. No breast masses. CARDIAC: Rhythm is Regular. Normal S1, S2. There is a fourth heart sound. There is a 1/6 soft systolic apical murmur. ABDOMEN: Soft and nontender. EXTREMITIES: With trace pitting edema, left greater than right. LABORATORY AND DIAGNOSTIC DATA: Her EKG reveals sinus rhythm with nonspecific ST changes. Labs notable for white count 8.2, hemoglobin 13.7. Troponin is negative. BUN 23, creatinine 1.1. Pro-natriuretic peptide 199. IMPRESSION: 1. Anginal syndrome. 2. Acute on chronic diastolic congestive heart failure. 3. Hypertensive heart disease. 4. Permanent pacemaker. 5. Lower extremity edema. PLAN: 1. Venous duplex study. 2. Maximize anti-failure regimen. 3. Repeat troponin level. 4. Noninvasive assessment of coronary flow reserve. 5. Check lipid panel 6. Aspirin prophylaxis Darci Jose M.D. DR: ARIAN JOB#: [id number] CC: SANDY
[2017-03-11] MEDS: guaiFENesin 100mg/5ml Liq ud ORAL PRN ×2 (03:59→10:29)
[2017-03-11 04:00] VITALS: BP 130/66
[2017-03-11] MEDS: Insulin NovoLOG Flexpen S/S (Mod) SUBQ SCH ×4 (06:25→20:27)
[2017-03-11 07:49] LABS: BASOPHILS % (AUTO) 0.7 % (0.0-2.0); EOSINOPHILS % (AUTO) 3.1 % (0.0-3.0); LYMPHOCYTES % (AUTO) 24.6 % (20.0-45.0); MEAN CORPUSCULAR HEMOGLOBIN 23.2 PG (27.0-31.0); MEAN CORPUSCULAR HGB CONC 29.4 G/DL (32.0-36.0); MEAN CORPUSCULAR VOLUME 79 FL (80-99); MEAN PLATELET VOLUME 6.8 FL (6.5-10.1); MONOCYTES % (AUTO) 8.5 % (1.0-10.0); NEUTROPHILS % (AUTO) 63.1 % (45.0-75.0); PLATELET COUNT 210 K/UL (150-450); RED BLOOD COUNT 5.32 M/UL (4.20-5.40); RED CELL DISTRIBUTION WIDTH 13.2 % (11.6-14.8); WHITE BLOOD COUNT 7.2 K/UL (4.8-10.8)
[2017-03-11 07:52] VITALS: BP 161/68
[2017-03-11 08:02] LABS: TROPONIN I < 0.30 ng/mL (<=0.30)
[2017-03-11 08:19] LABS: CHOLESTEROL/HDL RATIO 4.7 (3.3-4.4)
[2017-03-11] MEDS: Timolol 0.5% Op Soln 2.5ml BOTH EYES SCH ×2 (08:23→17:06)
[2017-03-11] MEDS: Flonase Nasal Inhaler 16gm NASAL SCH (08:23)
[2017-03-11] MEDS: Carvedilol 25mg Tab ORAL SCH ×2 (08:23→20:26)
[2017-03-11 08:41] LABS: ANION GAP 16 (5-15); CALCIUM 9.9 mg/dL (8.6-10.2); CARBON DIOXIDE 22 mEQ/L (20-30); CHLORIDE 97 mEQ/L (98-107); HEMOLYSIS 4; SODIUM 135 mEQ/L (135-145)
[2017-03-11] MEDS: 1/2NS w/KCl 20mEq 1000ml 1,000 ML IV SCH (10:30)
[2017-03-11 11:59] VITALS: BP 141/80
[2017-03-11] MEDS ORDERED: Adenosine Inj IVP ONE (12:30)
[2017-03-11 15:29] VITALS: BP 123/74
--- NOTE | 2017-03-11 16:46 | Diagnostic Imaging Report ---
Indications: Chest pain Technique: Single day single isotope protocol utilized. Initially, resting images obtained using IV administration 10.4 millicuries 99M technetium Myoview. Subsequently, patient underwent adenosine stress testing. See cardiology report for details. During adenosine infusion, IV administration 30.3 mCi 99 M technetium Myoview. SPECT and planar images obtained. SPECT images gated to 8 phases of the cardiac cycle were also obtained, and reformatted into cine images for evaluation of ejection fraction. Comparison: None Findings: Per cardiology report, patient experienced shortness of breath, burning in chest, throat itching.. Per cardiology report, resting EKG demonstrates normal sinus rhythm. Presence or absence of EKG changes not recorded in the cardiology report. Imaging demonstrates a post stress perfusion defect in the inferolateral wall extending into the apex which mostly reperfuses on the resting images. There is also a small perfusion defect in the anteroseptal wall near the apex. Presence or absence of reperfusion is uncertain as there is a paradoxical resting defect in the anterior wall which does not quite line up. The cardiac chamber size is not enlarged.. Calculated post stress ejection fraction 68% Impression: Nondiagnostic clinical response to pharmacologic stress, per cardiology report Nonischemic electrocardiographic response to pharmacologic stress, per cardiology report Small reversible perfusion defect in the inferolateral wall near the apex, consistent with small area of ischemia Small perfusion defect in the anteroseptal wall near the apex which is inconclusive given paradoxical findings on the resting images. Calculated post stress ejection fraction 68% Calculated post stress ejection fraction %
--- NOTE | 2017-03-11 18:07 | General Progress Note ---
Assessment/Plan Assessment/Plan Chest Pain - Troponins negative. Cardiology noted. W/u in progress. COPD exacerbation -improving. Subjective Allergies: Coded Allergies: AZITHROMYCIN (Verified Allergy, Intermediate, ITCHINESS, 10/15/13) QUESTIONABLE ALLERGIC RXN BUT PT STARTED ITCHING AFTER BEING GIVEN A DOSE BUT PT NOT SURE Subjective No CP. Soft Stool Objective Last 24 Hour Vital Signs Date Time Temp Pulse Resp B/P Pulse Ox O2 Delivery O2 Flow Rate FiO2 03/11/17 15:29 97.5 61 20 123/74 95 Nasal Cannula 2.0 03/11/17 13:42 78 16 98 Nasal Cannula 2.0 28 03/11/17 13:00 66 03/11/17 12:00 66 03/11/17 11:59 97.0 66 20 141/80 95 Nasal Cannula 2.0 03/11/17 08:23 68 161/68 03/11/17 08:22 68 161/68 03/11/17 08:00 65 03/11/17 07:52 97.0 68 20 161/68 98 Nasal Cannula 2.0 03/11/17 07:40 80 16 98 Nasal Cannula 2.0 28 03/11/17 04:00 97.5 74 20 130/66 98 Room Air 2.0 21 03/11/17 01:32 79 20 96 Room Air 21 03/11/17 01:32 80 20 98 Room Air 21 03/11/17 00:00 97.9 69 20 146/66 100 Nasal Cannula 2.0 21 03/10/17 22:08 64 145/66 03/10/17 20:00 97.9 64 18 145/65 100 Nasal Cannula 2.0 03/10/17 20:00 64 03/10/17 19:30 77 16 98 Room Air 21 03/10/17 19:30 79 20 99 Room Air 21 Intake and Output 03/10/17 03/11/17 19:00 07:00 Intake Total 960 ml 600 ml Balance 960 ml 600 ml Intake Oral 360 ml IV Total 600 ml 600 ml # Voids 3 6 # Bowel Movements 3 Laboratory Tests 03/11/17 06:45: White Blood Count 7.2, Red Blood Count 5.32, Hemoglobin 12.4, Hematocrit 42.1, Mean Corpuscular Volume 79L, Mean Corpuscular Hemoglobin 23.2L, Mean Corpuscular Hemoglobin Concent 29.4L, Red Cell Distribution Width 13.2, Platelet Count 210, Mean Platelet Volume 6.8, Neutrophils (%) (Auto) 63.1, Lymphocytes (%) (Auto) 24.6, Monocytes (%) (Auto) 8.5, Eosinophils (%) (Auto) 3.1H, Basophils (%) (Auto) 0.7, Sodium Level 135, Potassium Level 5.0H, Chloride Level 97L, Carbon Dioxide Level 22, Anion Gap 16H, Blood Urea Nitrogen 22, Creatinine 1.0H, Estimat Glomerular Filtration Rate , Glucose Level 218H, Calcium Level 9.9, Troponin I < 0.30, Triglycerides Level 180H, Cholesterol Level 218H, LDL Cholesterol 136H, HDL Cholesterol 46, Cholesterol/HDL Ratio 4.7H Height (Feet): 5 Height (Inches): 5.00 Weight (Pounds): 250 Objective Morbidly Obese. CV RR Lungs increased exp. with wheezes Abd SNT. Bs + E No CCE AVTAR LOVE Mar 11, 2017 18:07
[2017-03-11] MEDS: Enoxaparin 30mg Inj SUBQ SCH (18:21)
[2017-03-11 20:09] VITALS: BP 131/64
[2017-03-12 00:05] VITALS: BP 133/55
[2017-03-12] MEDS: guaiFENesin 100mg/5ml Liq ud ORAL PRN (00:08)
[2017-03-12] MEDS: Levalbuterol Inh UD 1.25mg/0.5ml HHN SCH ×3 (01:35→14:09)
--- NOTE | 2017-03-12 02:38 | Progress Note ---
DATE: 03/11/2017 CARDIOLOGY PROGRESS NOTE SUBJECTIVE: No chest pain. Troponins negative. Congestion and shortness of breath, improved. OBJECTIVE: VITAL SIGNS: Blood pressure 123/74, pulse 61, and respirations 20. Monitored rhythm sinus. LUNGS: Bilateral breath sounds. HEART: Regular rhythm and rate. Normal S1 and S2. There is a fourth heart sound. ABDOMEN: Soft. EXTREMITIES: Trace edema. LABORATORY AND DIAGNOSTIC DATA: Myocardial perfusion scan with adenosine stress reveals normal ejection fraction of 68% post-stress. There is a small inferoapical reversible defect and another anterior septal area of ambiguity that is probably artifact. IMPRESSION: 1. Probable single-vessel distal coronary artery disease with normal ejection fraction. 2. Hypertensive heart disease. 3. Chronic diastolic congestive heart failure. PLAN: 1. Would manage medically at this time. 2. Optimize blood pressure control. 3. Continue anti-platelet therapy with aspirin. 4. Maintenance dose diuretic. 5. Add long-acting nitrates. 6. LDL goal less than 70. Darci Jose M.D. DR: ROS JOB#: [id number] CC:
[2017-03-12 04:05] VITALS: BP 127/40
[2017-03-12 04:30] VITALS: BP 125/57
[2017-03-12] MEDS: Insulin NovoLOG Flexpen S/S (Mod) SUBQ SCH ×3 (06:20→16:27)
[2017-03-12 08:33] VITALS: BP 141/62
[2017-03-12] MEDS ORDERED: Imdur 30mg tab ORAL SCH (09:00)
[2017-03-12] MEDS: Flonase Nasal Inhaler 16gm NASAL SCH (09:07)
[2017-03-12] MEDS: Timolol 0.5% Op Soln 2.5ml BOTH EYES SCH ×2 (09:07→17:01)
[2017-03-12] MEDS: Carvedilol 25mg Tab ORAL SCH (09:08)
[2017-03-12] MEDS ORDERED: Enoxaparin 30mg Inj SUBQ SCH (10:00)
[2017-03-12 12:21] VITALS: BP 134/91
[2017-03-12 15:47] VITALS: BP 120/61
[2017-03-12] MEDS: Loperamide 2mg cap ORAL PRN (16:26)
--- NOTE | 2017-03-12 17:36 | General Progress Note ---
Assessment/Plan Assessment/Plan Chest Pain - Troponins negative. Cardiology noted. W/u done and is negative. DC home. COPD exacerbation -improving. Subjective Allergies: Coded Allergies: AZITHROMYCIN (Verified Allergy, Intermediate, ITCHINESS, 10/15/13) QUESTIONABLE ALLERGIC RXN BUT PT STARTED ITCHING AFTER BEING GIVEN A DOSE BUT PT NOT SURE Subjective No CP. Soft Stool Objective Last 24 Hour Vital Signs Date Time Temp Pulse Resp B/P Pulse Ox O2 Delivery O2 Flow Rate FiO2 03/12/17 16:00 67 03/12/17 15:47 97.9 71 20 120/61 97 Room Air 03/12/17 12:21 97.7 60 18 134/91 97 Room Air 03/12/17 12:00 60 03/12/17 09:09 60 141/62 03/12/17 09:08 141/62 03/12/17 09:08 60 141/62 03/12/17 08:33 97.7 60 20 141/62 95 Nasal Cannula 2.0 03/12/17 08:00 60 03/12/17 04:30 125/57 03/12/17 04:05 98.1 62 20 127/40 95 Room Air 03/12/17 04:00 67 03/12/17 01:36 Nasal Cannula 1.0 24 03/12/17 01:35 Nasal Cannula 1.0 24 03/12/17 00:05 98.0 65 20 133/55 100 Room Air 03/12/17 00:00 95 03/11/17 20:26 61 131/64 03/11/17 20:09 97.9 59 20 131/64 99 Room Air 03/11/17 20:00 60 03/11/17 19:44 61 18 99 Nasal Cannula 1.0 24 03/11/17 19:36 99 Nasal Cannula 1.0 24 03/11/17 19:36 Nasal Cannula 1.0 24 03/11/17 19:36 60 16 99 Nasal Cannula 1.0 28 Intake and Output 03/11/17 03/12/17 19:00 07:00 Intake Total 810 ml 200 ml Balance 810 ml 200 ml Intake Oral 360 ml IV Total 450 ml 200 ml # Voids 3 2 Height (Feet): 5 Height (Inches): 5.00 Weight (Pounds): 250 Objective Morbidly Obese. CV RR Lungs increased exp. with wheezes Abd SNT. Bs + E No CCE AVTAR LOVE Mar 12, 2017 17:36
[2017-03-12] MEDS ORDERED: NORVASC10 MG ORAL (17:39)
--- NOTE | 2017-03-13 00:28 | Progress Note ---
DATE: 03/12/2017 CARDIOLOGY PROGRESS NOTE: SUBJECTIVE: The case was discussed with Dr. Lozano. Myocardial perfusion study reviewed and discussed as well. The patient has no chest pain. OBJECTIVE: VITAL SIGNS: Blood pressure 120/60, pulse 71, and respirations 20. NECK: Supple. LUNGS: Clear. CARDIAC: Regular rhythm rate. Normal S1, S2 with a fourth heart sound. ABDOMEN: Soft. No edema. ASSESSMENT: 1. Minimal amount of flow-limiting coronary artery disease based on myocardial perfusion scan. 2. Stable angina. 3. Chronic obstructive pulmonary disease with no active bronchospasm. 4. Hypertensive heart disease with controlled blood pressure. 5. Compensated diastolic congestive heart failure. PLAN: Medical therapy. Consider catheterization only if unstable pattern of angina developed in the future. Antiplatelet and antilipid therapy on board with latter for LDL goal less than 100. Medications reviewed and discussed with Dr. Lozano. Darci Jose M.D. DR: ALYCE JOB#: [id number] CC:
--- NOTE | 2017-03-13 12:04 | Discharge Summary ---
Discharge Summary Hospital Course Date of Admission Mar 09, 2017 at 12:47 Date of Discharge Mar 12, 2017 at 19:50 Admitting Diagnosis ACS HPI Jossie Medina is a 81 year old female who was admitted on Mar 09, 2017 at 12: 47 for Acute Coronary Syndrome Hospital Course [id number] Discharge Discharge Disposition Patient was discharged to Home (01) Discharge Diagnoses: Odalis Mcmahon NP Mar 13, 2017 12:04
--- NOTE | 2017-03-14 00:58 | Discharge Summary 2 SIG ---
DATE OF ADMISSION: 03/09/2017 DATE OF DISCHARGE: 03/12/2017 PATIENT CONSUMER MARKETER: Darci Jose M.D. BRIEF HOSPITAL COURSE: The patient is an 81-year-old female, who has been admitted to this hospital multiple times with same complaints, mainly shortness of breath and generalized pain including atypical chest pain. She presented to ED. She developed acute onset of chest pain and shortness of breath. This started morning on the day of admission. The pain was described to be intermittent, dull, aching, and lasting for greater than 10 minutes. There were no associated signs and symptoms. No modifying factors. On evaluation at ED, EKG performed showed normal sinus rhythm with PVCs and no ectopy. Chest x-ray showed no acute cardiopulmonary disease. No consolidation, effusion, or pneumothorax, but with presence of a pacemaker. She was seen by Dr. Jose for evaluation of chest pain. She complained of decreasing exercise capacity and some leg swelling, left greater than right for several days. EKG did not show specific ST changes. Troponins were negative. She was given aspirin. Lipid panel was checked and was started on Lipitor. She was given Lovenox for DVT prophylaxis. She underwent myocardial perfusion scan with adenosine stress that showed normal ejection fraction of 68% post stress. There is a small inferoapical reversible defect and another anterior septal area of ambiguity that is probably artifact. COPD improved. Chest pain was negative. The patient was eventually discharged home. FINAL DIAGNOSES: 1. Minimal amount of flow-limiting coronary artery disease based on myocardial perfusion scan. 2. Stable angina. 3. Chronic obstructive pulmonary disease. 4. Hypertensive heart disease. 5. Compensated diastolic congestive heart failure. 6. Chronic obstructive pulmonary disease exacerbation. Abbey Lozano M.D. I have been assigned to dictate discharge summary on this account and I was not involved in the patient's management. Odalis Mcmahon N.P. DR: ADELINA JOB#: [id number] CC:
== END 2017-03-12 19:50 | disposition home or self-care (01) | DRG 190 ==
LOC: EMR 11:30 → 2E 12:47 → EDBEDREQ 13:31 → 2E 03-10 15:52
DX: J44.1 Chronic obstructive pulmonary disease with (acute) exacerbation (principal); I50.33 Acute on chronic diastolic (congestive) heart failure; Z68.41 Body mass index [BMI] 40.0-44.9, adult; I11.0 Hypertensive heart disease with heart failure; Z95.0 Presence of cardiac pacemaker; R60.0 Localized edema; E11.9 Type 2 diabetes mellitus without complications; E66.01 Morbid (severe) obesity due to excess calories; I25.118 Atherosclerotic heart disease of native coronary artery with other forms of angina pectoris
CPT/HCPCS: 36415; 71010; 78452; 80048; 80053; 80061; 82550; 82553; 82962; 83036; 83690; 83880; 84484; 85025; 85610; 85730; 93005; 93017; 94640; 94760; J1815; J7620; J8499

== ENCOUNTER 2017-08-29 20:39 | Inpatient (IN) | payer MEDICARE, MEDICAID ==
[~2017-08-29] VITALS: Ht 165.1 cm; Wt 113.4 kg
[~2017-08-29 20:39] MED LIST changes: +LUMIGAN2.5 ML BOTH EYES; +NORVASC10 MG ORAL
[2017-08-29] MEDS ORDERED: Ipratropium 0.02% Inh Soln 2.5ml UD HHN ONE (21:00)
[2017-08-29] MEDS ORDERED: Albuterol ud Inhalation HHN ONE (21:00)
[2017-08-29] MEDS ORDERED: Solu-MEDROL 125mg Inj IVP ONE (21:00)
--- NOTE | 2017-08-29 21:00 | Emergency Room Report ---
History of Present Illness General Chief Complaint: Dyspnea/Respdistress Source: Patient Present Illness HPI Is an 82-year-old female who is morbidly obese. She has multiple medical problem including hypertension, diabetes, COPD, pacemaker. She presents with increasing trismus for a week. Increase use of oxygenation. Worse with exertion. Worse with lying flat. Also complaining of increasing edema bilaterally left greater than right. This is a chronic problem. No nausea no vomiting. No fever or chills. No chest pain. Allergies: Coded Allergies: AZITHROMYCIN (Verified Allergy, Intermediate, ITCHINESS, 10/15/13) QUESTIONABLE ALLERGIC RXN BUT PT STARTED ITCHING AFTER BEING GIVEN A DOSE BUT PT NOT SURE Patient History Past Medical History: see triage record, old chart reviewed, DM, HTN, CHF, COPD Past Surgical History: pacemaker Pertinent Family History: none Social History: Denies: smoking Now: No Immunizations: other Reviewed Nursing Documentation: PMH: Agreed, PSxH: Agreed Nursing Documentation-PMH Hx Cardiac Problems: Yes - ARTHRITIS,CATARACT SURGERY LEFT EYE Hx Hypertension: Yes Hx Pacemaker: Yes - L chest Hx Asthma: Yes Hx COPD: Yes Hx Diabetes: Yes Hx Cancer: No Hx Gastrointestinal Problems: Yes Hx Neurological Problems: No Hx Tremors: Yes Hx Vertigo: Yes Hx Dizziness: Yes Hx Syncope: Yes Hx Headaches: Yes Hx Weakness: Yes Hx Fatigue: Yes Review of Systems Eye: Denies: eye pain, blurred vision ENT: Denies: ear pain, nose congestion, throat swelling Respiratory: Reports: shortness of breath, Denies: cough Cardiovascular: Denies: chest pain, palpitations Gastrointestinal: Denies: abdominal pain, diarrhea, nausea, vomiting Musculoskeletal: Denies: back pain, joint pain Skin: Denies: rash Neurological: Denies: headache, numbness Endocrine: Denies: increased thirst, increased urine Hematologic/Lymphatic: Denies: easy bruising All Other Systems: negative except mentioned in HPI Physical Exam Vital Signs Date Time Temp Pulse Resp B/P (MAP) Pulse Ox O2 Delivery O2 Flow Rate FiO2 08/29/17 20:43 97.5 76 18 178/86 98 Room Air vitals with high blood pressure Sp02 EP Interpretation: reviewed, normal General Appearance: well appearing, no apparent distress, alert, obese Head: normocephalic, atraumatic Eyes: bilateral eye PERRL, bilateral eye EOMI ENT: hearing grossly normal, normal pharynx Neck: full range of motion, supple, no meningismus Respiratory: chest non-tender, lungs clear, normal breath sounds Cardiovascular #1: regular rate, rhythm, no murmur Gastrointestinal: normal bowel sounds, non tender, no mass, no organomegaly, no bruit, non-distended Musculoskeletal: back normal, normal range of motion, swelling - 1+ pitting edema. Psychiatric: mood/affect normal Skin: warm/dry Medical Decision Making Diagnostic Impression: Primary Impression: COPD with exacerbation Additional Impressions: Morbid obesity with BMI of 40.0-44.9, adult HTN (hypertension) Qualified Codes: I10 - Essential (primary) hypertension ER Course Patient presents with shortness of breath. Better after breathing treatment. May be secondary to obstructive sleep apnea and her obesity. No evidence of ACS , PE, dissection, CHF to name a few. We'll admit for further workup. Lab Results Impression labs unremarkable EKG Diagnostic Results Rate: normal Rhythm: NSR ST Segments: no acute changes Rhythm Strip Diag. Results Rhythm Strip Time: 21:00 EP Interpretation: yes Rate: 72 Rhythm: NSR, no PVC's, no ectopy Chest X-Ray Diagnostic Results Chest X-Ray Diagnostic Results : Chest X-Ray Ordered: Yes # of Views/Limited/Complete: 1 View Indication: Shortness of Breath EP Interpretation: Yes Interpretation: no consolidation, no effusion, no pneumothorax, no acute cardiopulmonary disease Impression: No acute disease Electronically Signed by: Electronically signed by Trevor Joseph MD Last Vital Signs Date Time Temp Pulse Resp B/P (MAP) Pulse Ox O2 Delivery O2 Flow Rate FiO2 08/29/17 20:43 97.5 76 18 178/86 98 Room Air Status: improved Disposition: ADMITTED INPATIENT Condition: Serious TREVOR JOSEPH M.D. Aug 29, 2017 21:00
[2017-08-29 21:02] VITALS: BP 106/85
[2017-08-29 21:37] LABS: BASOPHILS % (AUTO) 1.3 % (0.0-2.0); EOSINOPHILS % (AUTO) 3.1 % (0.0-3.0); LYMPHOCYTES % (AUTO) 20.8 % (20.0-45.0); MEAN CORPUSCULAR HEMOGLOBIN 23.5 PG (27.0-31.0); MEAN CORPUSCULAR HGB CONC 29.1 G/DL (32.0-36.0); MEAN CORPUSCULAR VOLUME 81 FL (80-99); MEAN PLATELET VOLUME 6.4 FL (6.5-10.1); MONOCYTES % (AUTO) 7.2 % (1.0-10.0); NEUTROPHILS % (AUTO) 67.7 % (45.0-75.0); PLATELET COUNT 225 K/UL (150-450); WHITE BLOOD COUNT 7.2 K/UL (4.8-10.8)
[2017-08-29 21:49] LABS: ALBUMIN/GLOBULIN RATIO 0.8 (1.0-2.7); ANION GAP 7 (5-15); ASPARTATE AMINO TRANSFERASE 17 U/L (15-37); CALCIUM 10.4 MG/DL (8.5-10.1); CARBON DIOXIDE 26 MMOL/L (21-32); CHLORIDE 99 MMOL/L (98-107); CKMB 1.2 NG/ML (0.0-3.6); CREATININE 1.2 MG/DL (0.55-1.30); POTASSIUM 4.7 MMOL/L (3.5-5.1); SODIUM 132 MMOL/L (136-145); TOTAL PROTEIN 7.9 G/DL (6.4-8.2)
[2017-08-29 22:07] LABS: ALANINE AMINOTRANSFERASE 29 U/L (12-78)
[2017-08-29 22:32] LABS: APPEARANCE,URINE CLEAR; KETONES,URINE NEGATIVE (NEGATIVE); LEUKOCYTE ESTERASE ,URINE NEGATIVE (NEGATIVE); NITRITE,URINE NEGATIVE (NEGATIVE); PH,URINE 5 (4.5-8.0); PROTEIN,URINE NEGATIVE (NEGATIVE); UROBILINOGEN,URINE NORMAL MG/DL (0.0-1.0)
[2017-08-29 23:02] VITALS: BP 208/62
[2017-08-29] MEDS ORDERED: ASPIR 8181 MG ORAL (23:53)
[2017-08-29] MEDS ORDERED: AKTOB1 DROP LEFT EYE (23:53)
[2017-08-29] MEDS ORDERED: PREDNISOLO15 MG/5 M1 ORAL (23:53)
[2017-08-29] MEDS ORDERED: TYLENOL EXTRA500 MG ORAL (23:53)
[2017-08-29] MEDS ORDERED: LUMIGAN2.5 ML LEFT EYE (23:53)
[2017-08-30 00:02] VITALS: BP 138/56
[2017-08-30 01:09] VITALS: BP 163/76
[2017-08-30 04:00] VITALS: BP 138/80
[2017-08-30] MEDS ORDERED: Acetaminophen 500mg (ES) tab ORAL PRN (06:45)
[2017-08-30] MEDS ORDERED: Albuterol/Ipratropium 3ml neb HHN PRN (06:45)
[2017-08-30] MEDS ORDERED: guaiFENesin DM 100mg/5ml ORAL PRN (06:45)
[2017-08-30 08:00] VITALS: BP 170/104
[2017-08-30] MEDS: Aspirin EC 81mg tab ORAL SCH (08:48)
[2017-08-30] MEDS: Heparin 5000 units/ml inj SUBQ SCH ×2 (08:51→20:37)
[2017-08-30] MEDS ORDERED: Carvedilol 12.5mg tab ORAL SCH (09:00)
--- NOTE | 2017-08-30 09:10 | Diagnostic Imaging Report ---
Indication: SOB Comparison: 03/09/2017 Findings: Single view of the chest shows a normal cardiomediastinal silhouette. Pulmonary vasculature is normal. Lung are clear. Soft tissues and osseous structures are within normal limits. Again noted is left chest wall dual-lead pacemaker, unchanged. Impression: No acute chest disease Left pacemaker
[2017-08-30] MEDS: Tobramycin Op Soln 0.3% 5ml LEFT EYE SCH ×4 (09:16→20:32)
[2017-08-30] MEDS: NovoLOG Insulin Flexpen SUBQ SCH ×3 (13:12→20:40)
--- NOTE | 2017-08-30 13:47 | Consultation ---
Consult Note Consult Note 82-year-old female who is morbidly obese, presents with increasing shortness of breath and need for oxygen over the past week. She notes the symptoms to be worse with exertionand in the supine position. She notes worsening leg edema over the past week. No fever or chills. No chest pain. She was seen in the ER and given a breathing treatment with some improvement. Imaging overall was noted to be negative for pneumonia or CHF. no pleurisy noted Allergies: AZITHROMYCIN (Verified Allergy, Intermediate, ITCHINESS, 10/15/13) Past Medical History: DM, HTN, CHF, COPD, arthritis, Catarct extraction left eye Past Surgical History: pacemaker Pertinent Family History: none Social History: Denies: smoking or drinking; retired Reviewed of systems: overall negative; noted arthritis and debility, abdominal issues Physical exam WDWN female NAD; mild cough and congestion reduced breath sounds bilaterally with occasional rhonchi or wheeze [id number] without MRG NABS nontender no HSM no CC noted leg edema nonfocal Laboratory Tests Test 08/29/17 21:00 08/29/17 22:20 White Blood Count 7.2 K/UL (4.8-10.8) Red Blood Count 5.70 M/UL (4.20-5.40) H Hemoglobin 13.4 G/DL (12.0-16.0) Hematocrit 46.0 % (37.0-47.0) Mean Corpuscular Volume 81 FL (80-99) Mean Corpuscular Hemoglobin 23.5 PG (27.0-31.0) L Mean Corpuscular Hemoglobin Concent 29.1 G/DL (32.0-36.0) L Red Cell Distribution Width 13.0 % (11.6-14.8) Platelet Count 225 K/UL (150-450) Mean Platelet Volume 6.4 FL (6.5-10.1) L Neutrophils (%) (Auto) 67.7 % (45.0-75.0) Lymphocytes (%) (Auto) 20.8 % (20.0-45.0) Monocytes (%) (Auto) 7.2 % (1.0-10.0) Eosinophils (%) (Auto) 3.1 % (0.0-3.0) H Basophils (%) (Auto) 1.3 % (0.0-2.0) Sodium Level 132 MMOL/L (136-145) L Potassium Level 4.7 MMOL/L (3.5-5.1) Chloride Level 99 MMOL/L (98-107) Carbon Dioxide Level 26 MMOL/L (21-32) Anion Gap 7 (5-15) Blood Urea Nitrogen 26 mg/dL (7-18) H Creatinine 1.2 MG/DL (0.55-1.30) Estimat Glomerular Filtration Rate mL/min (>60) Glucose Level 133 MG/DL (74-106) H Calcium Level 10.4 MG/DL (8.5-10.1) H Total Bilirubin 0.2 MG/DL (0.2-1.0) Aspartate Amino Transf (AST/SGOT) 17 U/L (15-37) Alanine Aminotransferase (ALT/SGPT) 29 U/L (12-78) Alkaline Phosphatase 118 U/L (46-116) H Total Creatine Kinase 118 U/L (26-308) Creatine Kinase MB 1.2 NG/ML (0.0-3.6) Creatine Kinase MB Relative Index 1.0 Troponin I 0.000 ng/mL (0.000-0.056) Pro-B-Type Natriuretic Peptide 170 (0-125) H Total Protein 7.9 G/DL (6.4-8.2) Albumin 3.4 G/DL (3.4-5.0) Globulin 4.5 g/dL Albumin/Globulin Ratio 0.8 (1.0-2.7) L Urine Color Pale yellow Urine Appearance Clear Urine pH 5 (4.5-8.0) Urine Specific [place] 1.020 (1.005-1.035) Urine Protein Negative (NEGATIVE) Urine Glucose (UA) Negative (NEGATIVE) Urine Ketones Negative (NEGATIVE) Urine Occult Blood Negative (NEGATIVE) Urine Nitrite Negative (NEGATIVE) Urine Bilirubin Negative (NEGATIVE) Urine Urobilinogen Normal MG/DL (0.0-1.0) Urine Leukocyte Esterase Negative (NEGATIVE) IMPRESSION shortness of breath respiratory insufficiency COPD mild bronchospasm possible Fluid overload leg edema rule out DVT diabetes PLAN venous US neb therapy oxygen therapy DVT prophylaxis resume meds keep negative impression, plan, and exam edited and reviewed in detail care discussed with HANK RYAN Aug 30, 2017 13:47
[2017-08-30 16:15] VITALS: BP 155/63
--- NOTE | 2017-08-30 18:15 | History and Physical Report ---
DATE OF ADMISSION: 08/29/2017 CHIEF COMPLAINT: Shortness of breath and weakness. HISTORY OF PRESENT ILLNESS: This is an 82-year-old female, who is one of my office patients. The patient presented to the emergency department complaining of shortness of breath and weakness for several days prior to admission. She has multiple past medical problems as listed below. PAST MEDICAL HISTORY: 1. Morbid obesity. 2. Type 2 diabetes mellitus. 3. Hypertensive cardiovascular disease. 4. Status post pacemaker. 5. Diastolic heart failure. 6. COPD. 7. Glaucoma. MEDICATIONS: Tylenol p.r.n., amlodipine 10 mg p.o. daily, baby aspirin 81 mg p.o. daily, Lumigan eyedrops, Azopt eyedrops, Coreg, fluticasone inhaler, Lasix, NovoLog FlexPen 10 units before meals, Lantus units nightly, DuoNeb inhalation, Protonix, potassium chloride 20 mEq daily, mg daily, timolol eyedrops, TobraDex eyedrops, and valsartan 320 mg daily. ALLERGIES: Azithromycin. FAMILY HISTORY: Unremarkable. SOCIAL HISTORY: She lives at home. HABITS: She is nonsmoker and nondrinker. There is no history of illicit drug abuse. REVIEW OF SYSTEMS: HEENT: Hearing and eyesight are normal. ENDOCRINE: Significant for type 2 insulin-treated. She also has obesity. RESPIRATORY: Significant for morbid obesity, sleep apnea, and shortness of breath. CARDIOVASCULAR: She denies chest pain or palpitations. GASTROINTESTINAL: No history of hematochezia, melena, hematemesis, diarrhea, or constipation. GENITOURINARY: She denies dysuria, frequency, urgency, or hematuria. NEUROLOGIC: No history of stroke, syncope, or Parkinson disease. PHYSICAL EXAMINATION: GENERAL: This is an elderly female, who is in no acute distress. VITAL SIGNS: Blood pressure 170/100, pulse 96 and regular, respirations 20, and temperature 98. HEENT: The patient is normocephalic and atraumatic. Pupils are equal, round, and reactive to light and accommodation consensually. NECK: Supple. Trachea midline. There was no lymphadenopathy or thyromegaly. LUNGS: Few bilateral wheezes. HEART: Regular rate and rhythm without rubs, murmurs, or gallops. ABDOMEN: Soft. Bowel sounds were active. EXTREMITIES: No clubbing, cyanosis, or edema. NEUROLOGIC: She is alert and oriented x4. Cranial nerves II through XII intact. LABORATORY AND ANCILLARY DATA: CBC within normal limits. Serum chemistry, sodium 132, glucose 133. Urinalysis within normal limits. Imaging reports, chest x-ray within normal limits. ASSESSMENT: 1. Morbid obesity. 2. Type 2 diabetes mellitus. 3. Hypertensive cardiovascular disease. 4. Status post pacemaker. 5. Diastolic heart failure. 6. COPD. 7. Glaucoma. PLAN: I suspect that the majority of the patient's symptoms have to do with sleep apnea due to morbid obesity. 1. Continue current therapy. 2. Rule out pulmonary emboli. 3. I even strongly recommended to the patient and discussed with Dr. Bello the sleep studies and home CPAP therapy. Sendy Dinh JOB#: [id number] CC:
[2017-08-30 20:00] VITALS: BP 128/67
[2017-08-30] MEDS: Carvedilol 12.5mg tab ORAL SCH (20:33)
[2017-08-31] VITALS: BP 141/57
[2017-08-31] MEDS: Tobramycin Op Soln 0.3% 5ml LEFT EYE SCH ×7 (00:38→23:34)
[2017-08-31 04:00] VITALS: BP 141/56
[2017-08-31] MEDS: NovoLOG Insulin Flexpen SUBQ SCH ×4 (06:10→21:00)
[2017-08-31 08:00] VITALS: BP 159/112
[2017-08-31] MEDS: Heparin 5000 units/ml inj SUBQ SCH ×2 (08:11→20:59)
[2017-08-31] MEDS: Aspirin EC 81mg tab ORAL SCH (08:13)
[2017-08-31] MEDS: Carvedilol 12.5mg tab ORAL SCH ×2 (08:19→20:53)
--- NOTE | 2017-08-31 08:49 | Pulmonology Progress Note ---
Assessment/Plan Assessment/Plan IMPRESSION shortness of breath respiratory insufficiency COPD mild bronchospasm possible Fluid overload leg edema rule out DVT diabetes PLAN venous US pending neb therapy as is oxygen therapy as is DVT prophylaxis maintain meds keep negative await final echo report impression, plan, and exam edited and reviewed in detail care discussed with RN Subjective Allergies: Coded Allergies: AZITHROMYCIN (Verified Allergy, Intermediate, ITCHINESS, 10/15/13) QUESTIONABLE ALLERGIC RXN BUT PT STARTED ITCHING AFTER BEING GIVEN A DOSE BUT PT NOT SURE Subjective care noted undergoing Echo EF 55% notes mild sob but comfortable Objective Last 24 Hour Vital Signs Date Time Temp Pulse Resp B/P (MAP) Pulse Ox O2 Delivery O2 Flow Rate FiO2 08/31/17 08:19 63 159/112 08/31/17 04:00 97.7 60 20 141/56 100 Nasal Cannula 08/31/17 03:59 72 18 Room Air 21 08/31/17 00:00 97.9 66 20 141/57 96 Room Air 08/30/17 20:33 79 128/67 08/30/17 20:00 97.6 79 20 128/67 95 Room Air 08/30/17 16:15 97.1 70 21 155/63 97 Room Air 08/30/17 09:47 97.6 Objective WDWN NAD reduced breath sounds bilaterally without rhonchi or wheeze [id number] without MRG NABS nontender no HSM obese no CC edema nonfocal but weak alert Current Medications Medications (Trade) Dose Ordered Sig/Haider Route PRN Reason Start Time Stop Time Status Last Admin Dose Admin Acetaminophen (Tylenol) 500 mg Q6H PRN ORAL Mild Pain/Temp > 100.5 08/30/17 06:45 09/29/17 06:44 08/30/17 08:48 Albuterol/ Ipratropium (DuoNeb 0.5-3(2.5)mg/3ml) 3 ml Q6H PRN HHN Shortness of Breath 08/30/17 06:45 09/04/17 06:44 Aspirin (Ecotrin) 81 mg DAILY ORAL 08/30/17 09:00 09/29/17 08:59 08/31/17 08:13 Carvedilol (Coreg) 12.5 mg Q12HR ORAL 08/30/17 21:00 09/29/17 20:59 08/31/17 08:19 Dextrose (Dextrose 50%) STAT PRN IV Hypoglycemia 08/30/17 06:45 09/29/17 06:44 Furosemide (Lasix) 20 mg DAILY ORAL 08/30/17 09:00 09/29/17 08:59 08/31/17 08:09 Guaifenesin/ Dextromethorphan (Robitussin DM) 10 ml Q8H PRN ORAL For Cough 08/30/17 06:45 09/29/17 06:44 08/30/17 09:16 Heparin Sodium (Porcine) (Heparin 5000 units/ml) 5,000 units EVERY 12 HOURS SUBQ 08/30/17 09:00 09/29/17 08:59 08/31/17 08:11 Insulin Aspart (NovoLOG) BEFORE MEALS AND HS SUBQ 08/30/17 11:30 09/29/17 11:29 08/31/17 06:10 Levofloxacin 50 ml @ 50 mls/hr Q24H IVPB 08/30/17 08:00 09/06/17 07:59 08/31/17 08:08 Potassium Chloride 30 meq/ Sodium Chloride 1,015 ml @ 60 mls/hr [id number] IV 08/30/17 08:30 09/29/17 08:29 08/31/17 00:30 Potassium Chloride (K-Dur) 20 meq DAILY ORAL 08/30/17 09:00 09/29/17 08:59 08/31/17 08:09 Prednisolone (Prelone) 15 mg DAILY ORAL 08/30/17 09:00 09/29/17 08:59 08/31/17 08:08 Tobramycin Sulfate (Tobramycin Opth Soln) 1 drop Q4H LEFT EYE 08/30/17 08:00 09/06/17 07:59 08/31/17 08:08 HANK KNUTSON Aug 31, 2017 08:49
--- NOTE | 2017-08-31 10:31 | Diagnostic Imaging Report ---
Indication: Shortness of breath Technique: One view of the chest Comparison: 08/29/2017 Findings: Band of scarring is again demonstrated in the right midlung. The lungs and pleural spaces are otherwise clear. Heart size is borderline enlarged. Left chest pacemaker is again demonstrated. Findings are unchanged Impression: Unchanged, over 2 days, findings as above.
[2017-08-31 12:00] VITALS: BP 136/60
[2017-08-31 16:00] VITALS: BP 174/77
--- NOTE | 2017-08-31 16:27 | General Progress Note ---
Assessment/Plan Assessment/Plan COPD Exacerbation -brochodilators, IV Abx. Pulmonary F/U Sleep Apnea? Needs Home CPAP? Subjective Allergies: Coded Allergies: AZITHROMYCIN (Verified Allergy, Intermediate, ITCHINESS, 10/15/13) QUESTIONABLE ALLERGIC RXN BUT PT STARTED ITCHING AFTER BEING GIVEN A DOSE BUT PT NOT SURE Subjective Still c/o SOB and tiredness. Objective Last 24 Hour Vital Signs Date Time Temp Pulse Resp B/P (MAP) Pulse Ox O2 Delivery O2 Flow Rate FiO2 08/31/17 12:00 96.1 64 16 136/60 94 08/31/17 08:19 63 159/112 08/31/17 08:00 97.9 61 16 159/112 99 08/31/17 04:00 97.7 60 20 141/56 100 Nasal Cannula 08/31/17 03:59 72 18 Room Air 21 08/31/17 00:00 97.9 66 20 141/57 96 Room Air 08/30/17 20:33 79 128/67 08/30/17 20:00 97.6 79 20 128/67 95 Room Air Height (Feet): 5 Height (Inches): 5.00 Weight (Pounds): 250 Objective CV RR Lungs B Wheezes. Abd SNT. BS + E No CCE AVTAR LOVE Aug 31, 2017 16:27
[2017-08-31 20:00] VITALS: BP 130/51
[2017-09-01] VITALS: BP 124/51
[2017-09-01] MEDS: Tobramycin Op Soln 0.3% 5ml LEFT EYE SCH ×4 (03:57→16:00)
[2017-09-01 04:00] VITALS: BP 133/57
[2017-09-01] MEDS: NovoLOG Insulin Flexpen SUBQ SCH ×3 (06:54→17:38)
--- NOTE | 2017-09-01 07:59 | Pulmonology Progress Note ---
Assessment/Plan Assessment/Plan IMPRESSION shortness of breath respiratory insufficiency COPD mild bronchospasm possible Fluid overload leg edema diabetes possible sleep apnea PLAN [id number] sleep study and PFT venous US negative neb therapy as is oxygen therapy as is DVT prophylaxis maintain meds keep negative dc planning taper prednisone impression, plan, and exam edited and reviewed in detail care discussed with RN Subjective Allergies: Coded Allergies: AZITHROMYCIN (Verified Allergy, Intermediate, ITCHINESS, 10/15/13) QUESTIONABLE ALLERGIC RXN BUT PT STARTED ITCHING AFTER BEING GIVEN A DOSE BUT PT NOT SURE Subjective care noted some sob but comfortable Objective Last 24 Hour Vital Signs Date Time Temp Pulse Resp B/P (MAP) Pulse Ox O2 Delivery O2 Flow Rate FiO2 09/01/17 07:54 60 18 Room Air 21 09/01/17 04:00 97.5 60 20 133/57 100 Nasal Cannula 09/01/17 00:00 97.7 61 20 124/51 96 Nasal Cannula 08/31/17 20:53 69 130/51 08/31/17 20:00 97.5 69 20 130/51 99 Nasal Cannula 2.0 08/31/17 16:00 98.2 62 20 174/77 98 Nasal Cannula 2.0 08/31/17 12:00 96.1 64 16 136/60 94 08/31/17 08:19 63 159/112 08/31/17 08:00 97.9 61 16 159/112 99 Objective WDWN NAD reduced breath sounds bilaterally without rhonchi or wheeze- no change [id number] without MRG NABS nontender no HSM obese no CC edema nonfocal but weak alert Current Medications Medications (Trade) Dose Ordered Sig/Haider Route PRN Reason Start Time Stop Time Status Last Admin Dose Admin Acetaminophen (Tylenol) 500 mg Q6H PRN ORAL Mild Pain/Temp > 100.5 08/30/17 06:45 09/29/17 06:44 08/30/17 08:48 Albuterol/ Ipratropium (DuoNeb 0.5-3(2.5)mg/3ml) 3 ml Q6H PRN HHN Shortness of Breath 08/30/17 06:45 09/04/17 06:44 Aspirin (Ecotrin) 81 mg DAILY ORAL 08/30/17 09:00 09/29/17 08:59 08/31/17 08:13 Carvedilol (Coreg) 12.5 mg Q12HR ORAL 08/30/17 21:00 09/29/17 20:59 08/31/17 20:53 Dextrose (Dextrose 50%) STAT PRN IV Hypoglycemia 08/30/17 06:45 09/29/17 06:44 Furosemide (Lasix) 20 mg DAILY ORAL 08/30/17 09:00 09/29/17 08:59 08/31/17 08:09 Guaifenesin/ Dextromethorphan (Robitussin DM) 10 ml Q8H PRN ORAL For Cough 08/30/17 06:45 09/29/17 06:44 08/30/17 09:16 Heparin Sodium (Porcine) (Heparin 5000 units/ml) 5,000 units EVERY 12 HOURS SUBQ 08/30/17 09:00 09/29/17 08:59 08/31/17 20:59 Insulin Aspart (NovoLOG) BEFORE MEALS AND HS SUBQ 08/30/17 11:30 09/29/17 11:29 09/01/17 06:54 Levofloxacin 50 ml @ 50 mls/hr Q24H IVPB 08/30/17 08:00 09/06/17 07:59 08/31/17 08:08 Potassium Chloride 30 meq/ Sodium Chloride 1,015 ml @ 60 mls/hr [id number] IV 08/30/17 08:30 09/29/17 08:29 08/31/17 00:30 Potassium Chloride (K-Dur) 20 meq DAILY ORAL 08/30/17 09:00 09/29/17 08:59 08/31/17 08:09 Prednisolone (Prelone) 15 mg DAILY ORAL 08/30/17 09:00 09/29/17 08:59 08/31/17 08:08 Tobramycin Sulfate (Tobramycin Opth Soln) 1 drop Q4H LEFT EYE 08/30/17 08:00 09/06/17 07:59 09/01/17 03:57 HANK KNUTSON Sep 01, 2017 07:59
[2017-09-01 08:00] VITALS: BP 178/76
[2017-09-01] MEDS: Carvedilol 12.5mg tab ORAL SCH (08:38)
[2017-09-01] MEDS: Aspirin EC 81mg tab ORAL SCH (08:38)
[2017-09-01] MEDS: Heparin 5000 units/ml inj SUBQ SCH (08:42)
--- NOTE | 2017-09-01 11:39 | General Progress Note ---
Assessment/Plan Assessment/Plan COPD Exacerbation -better with brochodilators, IV Abx. Pulmonary F/U Sleep Apnea? Needs Home CPAP? DC home Subjective Allergies: Coded Allergies: AZITHROMYCIN (Verified Allergy, Intermediate, ITCHINESS, 10/15/13) QUESTIONABLE ALLERGIC RXN BUT PT STARTED ITCHING AFTER BEING GIVEN A DOSE BUT PT NOT SURE Subjective Less SOB and tiredness. Objective Last 24 Hour Vital Signs Date Time Temp Pulse Resp B/P (MAP) Pulse Ox O2 Delivery O2 Flow Rate FiO2 09/01/17 08:38 60 133/57 09/01/17 07:54 60 18 Room Air 21 09/01/17 04:00 97.5 60 20 133/57 100 Nasal Cannula 09/01/17 00:00 97.7 61 20 124/51 96 Nasal Cannula 08/31/17 20:53 69 130/51 08/31/17 20:00 97.5 69 20 130/51 99 Nasal Cannula 2.0 08/31/17 16:00 98.2 62 20 174/77 98 Nasal Cannula 2.0 08/31/17 12:00 96.1 64 16 136/60 94 Height (Feet): 5 Height (Inches): 5.00 Weight (Pounds): 250 Objective CV RR Lungs B Wheezes. Abd SNT. BS + E No CCE AVTAR LOVE Sep 01, 2017 11:39
[2017-09-01] MEDS ORDERED: FUROSEMIDE20 M1 ORAL (11:47)
[2017-09-01] MEDS ORDERED: POTASSIUM CHLO20 ME1 ORAL (11:47)
[2017-09-01] MEDS ORDERED: NOVOLOG100 UNITS1 SUBQ (11:47)
[2017-09-01] MEDS ORDERED: AKTOB1 DROP LEFT EYE (11:47)
[2017-09-01] MEDS ORDERED: ASPIRIN EC81 MG ORAL (11:47)
[2017-09-01 12:00] VITALS: BP 156/70
[2017-09-01] MEDS ORDERED: Tubing IV Secondary IV ONE (17:49)
--- NOTE | 2017-09-03 11:08 | Discharge Summary ---
Discharge Summary Hospital Course Date of Admission Aug 29, 2017 at 22:03 Date of Discharge Sep 01, 2017 at 17:50 Admitting Diagnosis COPD exacerbation HPI Jossie Medina is a 82 year old female who was admitted on Aug 29, 2017 at 22: 03 for Chronic Obstructive Pulmonary Disease Exacerbation Hospital Course [id number] Discharge Discharge Disposition Patient was discharged to Home Discharge Diagnoses: Odalis Mcmahon NP Sep 03, 2017 11:08
--- NOTE | 2017-09-04 02:30 | Discharge Summary 2 SIG ---
DATE OF ADMISSION: 08/29/2017 DATE OF DISCHARGE: 09/01/2017 COMPENSATION AND BENEFITS ADVISOR: Rocael Bello M.D. BRIEF HOSPITAL COURSE: The patient is an 82-year-old, female, who presented to emergency room complaining of shortness of breath and weakness several days prior to admission. She has a history of morbid obesity, diabetes type 2, hypertensive cardiovascular disease status post pacemaker, diastolic heart failure, COPD, and glaucoma. On evaluation at ED, EKG was in normal sinus rhythm. Chest x-ray showed no acute disease. She was admitted for shortness of breath and was followed by Dr. Bello. She was given oxygen and nebulization therapy and was started empirically on levofloxacin and was given prednisolone 50 mg daily. Venous duplex of lower extremity was negative. Prednisolone was tapered. The patient was recommended the need for outpatient sleep study and PFT. The patient was eventually discharged home. FINAL DIAGNOSES: 1. Acute chronic obstructive pulmonary disease exacerbation. 2. Mild bronchospasm. 3. Possible fluid overload. 4. Leg edema. 5. Diabetes. 6. Possible sleep apnea. DISPOSITION: The patient was discharged home. DISCHARGE MEDICATIONS: Refer to medication list. Abbey Lozano M.D. I have been assigned to dictate discharge summary on this account and I was not involved in the patient's management. Odalis Mcmahon N.P. DR: FANI JOB#: [id number] CC:
--- NOTE | 2017-09-08 08:19 | Cardiology Report ---
APPROVED REPORT EXAM: Two-dimensional and M-mode echocardiogram with Doppler and color Doppler. INDICATION Shortness of breath M-Mode DIMENSIONS IVSd1.8 (0.7-1.1cm)Left Atrium (MM)4.4 (1.6-4.0cm) LVDd4.1 (3.5-5.6cm)Aortic Root2.9 (2.0-3.7cm) PWd1.4 (0.7-1.1cm)Aortic Cusp Exc.1.8 (1.5-2.0cm) LVDs1.6 (2.5-4.0cm) PWs2.1 cm Technically difficult study due to patient body habitus. Normal left ventricular chamber size, systolic function and wall motion. Left ventricular ejection fraction estimated to be 55 %. Mild left ventricular hypertrophy. Anterior Echo-free space, may be due to pericardial fat or effusion. Mild bi-atrial enlargement. Right ventricular chamber sizes is within normal limits. Focal aortic valve sclerosis with adequate cusp excursion. Mildly thickened mitral valve leaflets with normal excursion. Mild mitral annulus and aortic root calcification. Pulmonic valve not well visualized. Normal tricuspid valve structure. IVC dilated at 2.0 cm with physiologic collapse, estimated RAP is 10 mmHg. A color flow and spectral Doppler study was performed and revealed: No aortic regurgitation. Trace mitral regurgitation. reduced left ventricular relaxation. Mild tricuspid regurgitation. Tricuspid systolic velocities suggests peak right ventricular systolic pressure of 35 mmHg, consistent with mild pulmonary hypertension. No pulmonic regurgitation present.
--- NOTE | 2017-09-08 08:26 | Cardiology Report ---
APPROVED REPORT EKG Measurement Heart [id number] Sinus rhythm with 1st degree AV block Minimal voltage criteria for LVH, may be normal variant Borderline ECG
== END 2017-09-01 17:50 | disposition home or self-care (01) | DRG 191 ==
LOC: EMR 21:05 → 4E 22:03 → EDBEDREQ 08-30 00:58
DX: J44.1 Chronic obstructive pulmonary disease with (acute) exacerbation (principal); Z68.41 Body mass index [BMI] 40.0-44.9, adult; I11.0 Hypertensive heart disease with heart failure; I50.30 Unspecified diastolic (congestive) heart failure; E11.8 Type 2 diabetes mellitus with unspecified complications; E66.01 Morbid (severe) obesity due to excess calories; Z95.0 Presence of cardiac pacemaker; H40.9 Unspecified glaucoma; Z88.1 Allergy status to other antibiotic agents; Z79.4 Long term (current) use of insulin; G47.30 Sleep apnea, unspecified; J98.01 Acute bronchospasm
CPT/HCPCS: 36415; 71010; 80053; 81003; 82550; 82553; 82962; 83880; 84484; 85025; 93005; 93306; 93970; 94640; 94664; 99285; J1815; J8499

== ENCOUNTER 2018-03-01 11:17 | Inpatient (IN) | payer MEDICARE, MEDICAID ==
[~2018-03-01] VITALS: Ht 165.1 cm
[~2018-03-01 11:17] MED LIST changes: +AKTOB1 DROP LEFT EYE; +ASPIR 8181 MG ORAL; +ASPIRIN EC81 MG ORAL; +LUMIGAN2.5 ML LEFT EYE; +POTASSIUM CHLO20 ME1 ORAL; +PREDNISOLO15 MG/5 M1 ORAL; +TYLENOL EXTRA500 MG ORAL
[2018-03-01 11:36] VITALS: BP 184/48
[2018-03-01 12:07] LABS: BASOPHILS % (AUTO) 0.5 % (0.0-2.0); EOSINOPHILS % (AUTO) 1.6 % (0.0-3.0); HEMATOCRIT 41.5 % (37.0-47.0); HEMOGLOBIN 12.9 G/DL (12.0-16.0); LYMPHOCYTES % (AUTO) 20.5 % (20.0-45.0); MEAN CORPUSCULAR VOLUME 76 FL (80-99); MONOCYTES % (AUTO) 7.8 % (1.0-10.0); NEUTROPHILS % (AUTO) 69.5 % (45.0-75.0); PLATELET COUNT 202 K/UL (150-450); RED BLOOD COUNT 5.44 M/UL (4.20-5.40); RED CELL DISTRIBUTION WIDTH 12.3 % (11.6-14.8); WHITE BLOOD COUNT 6.2 K/UL (4.8-10.8)
[2018-03-01 12:24] LABS: ANION GAP 5 mmol/L (5-15); BLOOD UREA NITROGEN 18 mg/dL (7-18); CALCIUM 10.2 MG/DL (8.5-10.1); CARBON DIOXIDE 27 MMOL/L (21-32); CHLORIDE 103 MMOL/L (98-107); CREATININE 1.1 MG/DL (0.55-1.30); POTASSIUM 4.5 MMOL/L (3.5-5.1); SODIUM 135 MMOL/L (136-145)
[2018-03-01 12:37] LABS: ALANINE AMINOTRANSFERASE 26 U/L (12-78); ALBUMIN 3.1 G/DL (3.4-5.0); ALBUMIN/GLOBULIN RATIO 0.7 (1.0-2.7); ALKALINE PHOSPHATASE 104 U/L (46-116); ASPARTATE AMINO TRANSFERASE 17 U/L (15-37); BILIRUBIN,TOTAL 0.3 MG/DL (0.2-1.0); CKMB 0.9 NG/ML (0.0-3.6); CREATINE KINASE 119 U/L (26-308)
[2018-03-01] MEDS ORDERED: Morphine Sulfate 4mg/ml Inj IVP ONE (12:45)
--- NOTE | 2018-03-01 12:59 | Emergency Room Report ---
History of Present Illness General Chief Complaint: Dyspnea/Respdistress Source: Patient, Medical Record Present Illness HPI 82-year-old female presents with dry cough, "congestion" without fever chills for "some days". Endorses history of CHF. Did not take her Lasix today. Also complaining of polyuria without dysuria and back pain Planing of pain to bilateral lower extremities as well. Allergies: Coded Allergies: AZITHROMYCIN (Verified Allergy, Intermediate, ITCHINESS, 10/15/13) QUESTIONABLE ALLERGIC RXN BUT PT STARTED ITCHING AFTER BEING GIVEN A DOSE BUT PT NOT SURE Patient History Past Medical History: CHF Past Surgical History: none Pertinent Family History: none Social History: Denies: smoking, alcohol use, drug use Now: No Immunizations: UTD Reviewed Nursing Documentation: PMH: Agreed; PSxH: Agreed Nursing Documentation-PMH Past Medical History: No History, Except For Hx Cardiac Problems: Yes - ARTHRITIS,CATARACT SURGERY LEFT EYE Hx Hypertension: Yes Hx Pacemaker: Yes - L chest Hx Asthma: Yes Hx COPD: Yes Hx Diabetes: Yes Hx Cancer: No Hx Gastrointestinal Problems: Yes Hx Neurological Problems: No Hx Tremors: Yes Hx Vertigo: Yes Hx Dizziness: Yes Hx Syncope: Yes Hx Headaches: Yes Hx Weakness: Yes Hx Fatigue: Yes Review of Systems All Other Systems: negative except mentioned in HPI Physical Exam Vital Signs Date Time Temp Pulse Resp B/P (MAP) Pulse Ox O2 Delivery O2 Flow Rate FiO2 03/01/18 11:26 97.8 72 22 189/168 100 Room Air 97.9 Sp02 EP Interpretation: reviewed, normal General Appearance: normal inspection, well appearing, no apparent distress, alert, GCS 15, non-toxic, obese Head: normocephalic, atraumatic Eyes: bilateral eye PERRL, bilateral eye EOMI ENT: normal ENT inspection, hearing grossly normal, normal pharynx, no angioedema, normal voice, TMs + canals normal, uvula midline, moist mucus membranes Neck: normal inspection, full range of motion, supple, thyroid normal, no meningismus, no bony tend Respiratory: normal inspection, lungs clear, normal breath sounds, no rhonchi, no respiratory distress, no retraction, no accessory muscle use, no wheezing, speaking full sentences Cardiovascular #1: regular rate, rhythm, no edema, no JVD, normal capillary refill Gastrointestinal: normal inspection, normal bowel sounds, non tender, soft, no mass, no peritonitis, non-distended, no guarding, no hernia, no pulsatile mass Genitourinary: no CVA tenderness Musculoskeletal: normal inspection, back normal, normal range of motion, no calf tenderness, pelvis stable, Italo's Sign negative, other - Bilateral pitting edema 2+ to knees Neurologic: normal inspection, alert, oriented x3, responsive, 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 as tested, motor strength/tone normal, cerebellar normal, normal gait, speech normal Psychiatric: normal inspection, judgement/insight normal, mood/affect normal, no suicidal/homicidal ideation, no delusions Skin: normal inspection, normal color, no rash Lymphatic: normal inspection, no adenopathy Medical Decision Making Diagnostic Impression: Primary Impression: Dyspnea Qualified Codes: R06.00 - Dyspnea, unspecified Additional Impression: Polyuria ER Course Vital signs notable for elevated systolic blood pressure Dyspnea/cough Lungs are clear to auscultation Afebrile no leukocytosis Chest x-ray negative for acute pneumonia or acute CHF BNP within normal limits ECG is normal sinus rhythm Cough likely viral URI, bronchitis Was given her missed dose of Lasix although she is not in acute CHF currently Polyuria, back pain has not given urine We'll treat empirically for UTI given morbid obesity, history of present illness consistent with UTI Admitted to Dr Currie, PMD Tele admit 1pm EKG Diagnostic Results Rate: normal Rhythm: NSR ST Segments: no acute changes ASA given to the pt in ED: No Rhythm Strip Diag. Results EP Interpretation: yes Rate: 67 Rhythm: NSR, no PVC's, no ectopy Chest X-Ray Diagnostic Results Chest X-Ray Diagnostic Results : Chest X-Ray Ordered: Yes # of Views/Limited/Complete: 1 View Indication: Other - cough EP Interpretation: Yes Interpretation: no consolidation, no effusion, no pneumothorax, no acute cardiopulmonary disease Impression: No acute disease Electronically Signed by: Dr Christina Biswas mD Last Vital Signs Date Time Temp Pulse Resp B/P (MAP) Pulse Ox O2 Delivery O2 Flow Rate FiO2 03/01/18 11:36 97.9 60 13 184/48 98 Room Air 97.9 Status: improved Disposition: ADMITTED INPATIENT Condition: Serious Referrals: Abbey Lozano MD (PCP) CHRISTINA BISWAS M.D. Mar 01, 2018 12:59
[2018-03-01] MEDS ORDERED: Levalbuterol Inh UD 1.25mg/0.5ml HHN ONE (13:00)
--- NOTE | 2018-03-01 13:10 | Diagnostic Imaging Report ---
Indication: Shortness of breath Technique: One view of the chest Comparison: 08/31/2017 Findings: Better inspiration currently. There is a left chest bifocal pacemaker. The heart is borderline enlarged. There is stable scarring in the right perihilar region. The lungs and pleural spaces are otherwise clear. There is persistent elevation of the left hemidiaphragm Impression: No acute process. Findings as noted
[2018-03-01] MEDS ORDERED: COREG12.5 MG ORAL (13:14)
[2018-03-01] MEDS ORDERED: DIOVAN320 MG ORAL (13:14)
[2018-03-01 13:26] LABS: APPEARANCE,URINE SLIGHTLY CLOUDY; BILIRUBIN, URINE NEGATIVE (NEGATIVE); GLUCOSE, URINE (UA) NEGATIVE (NEGATIVE); KETONES,URINE NEGATIVE (NEGATIVE); LEUKOCYTE ESTERASE ,URINE NEGATIVE (NEGATIVE); NITRITE,URINE NEGATIVE (NEGATIVE); PH,URINE 6 (4.5-8.0); PROTEIN,URINE 3+ (NEGATIVE); UROBILINOGEN,URINE NORMAL MG/DL (0.0-1.0)
[2018-03-01 13:40] LABS: COLOR,URINE YELLOW
[2018-03-01 14:39] VITALS: BP 164/88
[2018-03-01 15:22] VITALS: BP 158/72
[2018-03-01] MEDS ORDERED: Aspirin EC 81mg tab ORAL SCH (18:00)
[2018-03-01] MEDS ORDERED: Acetaminophen 500mg (ES) tab ORAL PRN (18:30)
[2018-03-01 20:00] VITALS: BP 124/69
[2018-03-01] MEDS: Labetalol 200mg tab ORAL SCH (21:05)
[2018-03-01] MEDS: NovoLOG Insulin Flexpen SUBQ SCH (21:06)
[2018-03-01] MEDS: Heparin 5000 units/ml inj SUBQ SCH (21:07)
[2018-03-02] VITALS: BP 128/72
--- NOTE | 2018-03-02 00:11 | Consultation ---
History of Present Illness General Chief Complaint: Dyspnea/Respdistress Present Illness HPI 82-year-old female with hx of mmp pw sob and anxiety. the pt has cognitive impairment no agitation. no si/hi Allergies: Coded Allergies: AZITHROMYCIN (Verified Allergy, Intermediate, ITCHINESS, 10/15/13) QUESTIONABLE ALLERGIC RXN BUT PT STARTED ITCHING AFTER BEING GIVEN A DOSE BUT PT NOT SURE Medication History Scheduled Aspirin Ec* (Aspirin Ec*), 81 MG ORAL DAILY Carvedilol (Coreg), 12.5 MG ORAL EVERY 12 HOURS, (Reported) Furosemide* (Lasix*), 20 MG ORAL DAILY Insulin Aspart (Novolog Flexpen), 10 UNITS SUBQ BEFORE MEALS AND HS Potassium Chloride* (K-Dur*), 20 MEQ ORAL DAILY Tobramycin Sulf (Tobramycin), 1 DROP LEFT EYE Q4H Valsartan (Diovan), 320 MG ORAL DAILY, (Reported) Patient History Limited by: medical condition History Provided By: Patient, Medical Record, PMD Healthcare decision maker Resuscitation status Advanced Directive on File Past Medical/Surgical History Past Medical/Surgical History: (1) Back injury (2) Knee contusion (3) [id number] (4) Upper respiratory infection (5) ACS (acute coronary syndrome) (6) Generalized osteoarthrosis (7) Abdominal pain, right upper quadrant (8) Dyspnea (9) Urinary tract infection (10) Upper respiratory infection (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 (12) Bronchitis (13) Asthma attack (14) Back pain (15) Pneumonia (16) CHF (congestive heart failure) (17) Sarcoid (18) Asthma exacerbation (19) COPD (chronic obstructive pulmonary disease) (20) Diabetes (21) Dyspnea (22) Pacemaker (23) DM (diabetes mellitus), type 1 uncontrolled with peripheral vascular complication (24) History of CHF (congestive heart failure) (25) Acute exacerbation of chronic obstructive pulmonary disease (26) Shortness of breath dyspnea (27) HTN (hypertension) (28) Polyuria Review of Systems Psychiatric: Reports: prior hx, anxiety, depressed feelings, emotional problems Physical Exam General Appearance: no apparent distress, alert Neurologic: oriented x 3, responsive Last 24 Hour Vital Signs Date Time Temp Pulse Resp B/P (MAP) Pulse Ox O2 Delivery O2 Flow Rate FiO2 03/01/18 21:05 64 124/69 03/01/18 20:00 73 4/16/18 16:00 73 03/01/18 15:22 97.7 77 20 158/72 94 Room Air 97.7 03/01/18 14:40 97.9 85 19 164/88 99 Room Air 97.9 03/01/18 14:39 97.9 85 19 164/88 99 Room Air 97.9 03/01/18 13:36 184/48 03/01/18 13:28 97.9 03/01/18 13:24 68 20 98 Room Air 21 03/01/18 13:11 70 22 Room Air 21 03/01/18 13:11 70 22 95 Room Air 21 03/01/18 11:36 97.9 60 13 184/48 98 Room Air 97.9 03/01/18 11:36 72 22 Room Air 03/01/18 11:26 97.8 72 22 189/168 100 Room Air 97.9 Intake and Output 03/01/18 03/02/18 19:00 07:00 Intake Total 0 ml Balance 0 ml Intake Oral 0 ml # Voids 1 Laboratory Tests Test 03/01/18 11:56 03/01/18 13:10 White Blood Count 6.2 K/UL (4.8-10.8) Red Blood Count 5.44 M/UL (4.20-5.40) H Hemoglobin 12.9 G/DL (12.0-16.0) Hematocrit 41.5 % (37.0-47.0) Mean Corpuscular Volume 76 FL (80-99) L Mean Corpuscular Hemoglobin 23.7 PG (27.0-31.0) L Mean Corpuscular Hemoglobin Concent 31.0 G/DL (32.0-36.0) L Red Cell Distribution Width 12.3 % (11.6-14.8) Platelet Count 202 K/UL (150-450) Mean Platelet Volume 7.2 FL (6.5-10.1) Neutrophils (%) (Auto) 69.5 % (45.0-75.0) Lymphocytes (%) (Auto) 20.5 % (20.0-45.0) Monocytes (%) (Auto) 7.8 % (1.0-10.0) Eosinophils (%) (Auto) 1.6 % (0.0-3.0) Basophils (%) (Auto) 0.5 % (0.0-2.0) Sodium Level 135 MMOL/L (136-145) L Potassium Level 4.5 MMOL/L (3.5-5.1) Chloride Level 103 MMOL/L (98-107) Carbon Dioxide Level 27 MMOL/L (21-32) Anion Gap 5 mmol/L (5-15) Blood Urea Nitrogen 18 mg/dL (7-18) Creatinine 1.1 MG/DL (0.55-1.30) Estimat Glomerular Filtration Rate mL/min (>60) Glucose Level 185 MG/DL (74-106) H Calcium Level 10.2 MG/DL (8.5-10.1) H Total Bilirubin 0.3 MG/DL (0.2-1.0) Aspartate Amino Transf (AST/SGOT) 17 U/L (15-37) Alanine Aminotransferase (ALT/SGPT) 26 U/L (12-78) Alkaline Phosphatase 104 U/L (46-116) Total Creatine Kinase 119 U/L (26-308) Creatine Kinase MB 0.9 NG/ML (0.0-3.6) Creatine Kinase MB Relative Index 0.7 Troponin I 0.000 ng/mL (0.000-0.056) Pro-B-Type Natriuretic Peptide 252 pg/mL (0-125) H Total Protein 7.3 G/DL (6.4-8.2) Albumin 3.1 G/DL (3.4-5.0) L Globulin 4.2 g/dL Albumin/Globulin Ratio 0.7 (1.0-2.7) L Urine Color Yellow Urine Appearance Slightly cloudy Urine pH 6 (4.5-8.0) Urine Specific [place] 1.015 (1.005-1.035) Urine Protein 3+ (NEGATIVE) H Urine Glucose (UA) Negative (NEGATIVE) Urine Ketones Negative (NEGATIVE) Urine Occult Blood 1+ (NEGATIVE) H Urine Nitrite Negative (NEGATIVE) Urine Bilirubin Negative (NEGATIVE) Urine Urobilinogen Normal MG/DL (0.0-1.0) Urine Leukocyte Esterase Negative (NEGATIVE) Urine RBC 2-4 /HPF (0 - 2) H Urine WBC 2-4 /HPF (0 - 2) Urine Squamous Epithelial Cells Few /LPF (NONE/OCC) Urine Bacteria Few /HPF (NONE) Height (Feet): 5 Height (Inches): 5.00 Weight (Pounds): 250 Medications Current Medications Medications (Trade) Dose Ordered Sig/Haider Route PRN Reason Start Time Stop Time Status Last Admin Dose Admin Acetaminophen (Tylenol) 500 mg Q6H PRN ORAL Moderate Pain (Pain Scale 4-6) 03/01/18 18:30 03/31/18 18:29 Aspirin (Ecotrin) 81 mg DAILY ORAL 03/02/18 09:00 04/01/18 08:59 Dextrose (Dextrose 50%) 25 ml STAT PRN IV Hypoglycemia 03/01/18 18:30 03/31/18 18:29 Dextrose (Dextrose 50%) 50 ml STAT PRN IV Hypoglycemia 03/01/18 18:30 03/31/18 18:29 Furosemide (Lasix) 20 mg DAILY ORAL 03/02/18 09:00 04/01/18 08:59 Heparin Sodium (Porcine) (Heparin 5000 units/ml) 5,000 units EVERY 12 HOURS SUBQ 03/01/18 21:00 03/31/18 20:59 03/01/18 21:07 Hydromorphone HCl (Dilaudid) 1 mg Q6H PRN IVP Severe Pain (Pain Scale 7-10) 03/01/18 18:30 03/08/18 18:29 Insulin Aspart (NovoLOG) BEFORE MEALS AND HS SUBQ 03/01/18 21:00 03/31/18 20:59 03/01/18 21:06 Irbesartan (Avapro) 300 mg DAILY ORAL 03/02/18 09:00 04/01/18 08:59 Labetalol HCl (Normodyne) 200 mg Q12HR ORAL 03/01/18 21:00 03/31/18 20:59 03/01/18 21:05 Levofloxacin 100 ml @ 100 mls/hr Q24H IVPB 03/01/18 20:00 03/08/18 23:59 03/01/18 21:09 Potassium Chloride (K-Dur) 20 meq DAILY ORAL 03/02/18 09:00 04/01/18 08:59 Assessment/Plan Status: stable Assessment/Plan anxiety d/o ativan prn provided alyson/Sonny Orona M.D. Mar 02, 2018 00:11
[2018-03-02 04:00] VITALS: BP 143/73
[2018-03-02] MEDS: NovoLOG Insulin Flexpen SUBQ SCH ×4 (06:23→20:35)
[2018-03-02 08:00] VITALS: BP_SYST 143; BP_SYST 149; BP_DIAS 67; BP_DIAS 73
[2018-03-02] MEDS: Aspirin EC 81mg tab ORAL SCH (11:43)
[2018-03-02] MEDS: Labetalol 200mg tab ORAL SCH ×2 (11:43→20:33)
[2018-03-02] MEDS: Irbesartan 150mg tablet ORAL SCH (11:44)
[2018-03-02] MEDS: Heparin 5000 units/ml inj SUBQ SCH ×2 (11:46→20:34)
[2018-03-02 12:00] VITALS: BP 148/75
--- NOTE | 2018-03-02 14:57 | Cardiology Report ---
APPROVED REPORT EKG Measurement Heart [id number] Normal sinus rhythm with sinus arrhythmia Nonspecific ST and T wave abnormality Abnormal ECG
--- NOTE | 2018-03-02 18:45 | History and Physical Report ---
DATE OF ADMISSION: 03/01/2018 CHIEF COMPLAINT: Shortness of breath. HISTORY OF PRESENT ILLNESS: This is an 82-year-old female who is well known to me from office care and previous admission. The patient was admitted with shortness of breath. PAST MEDICAL HISTORY: 1. Degenerative joint disease. 2. Obesity. 3. Type 2 diabetes mellitus. 4. Diastolic heart failure. 5. Hypertensive cardiovascular disease. 6. COPD. 7. Status post pacemaker. MEDICATIONS: Baby aspirin, Coreg, Lasix, NovoLog, FlexPen, potassium chloride and Diovan. ALLERGIES: Azithromycin. FAMILY HISTORY: Unremarkable. SOCIAL HISTORY: She lives at home. Habits, she is nonsmoker and nondrinker. There is no history of illicit drug abuse. REVIEW OF SYSTEMS: HEENT: Hearing and eyesight are normal. ENDOCRINE: Significant for mild type 2 diabetes mellitus. There is no history of thyroid problems. RESPIRATORY: She has COPD. The patient claims to have history of sarcoid, although it is not supported by the objective data. NEUROLOGICAL: No history of stroke, syncope or Parkinson disease. PHYSICAL EXAMINATION: GENERAL: This is an elderly female, who is in no acute distress. VITAL SIGNS: Blood pressure 149/67, pulse 64 and regular, respirations 20, and temperature 98 degrees. HEENT: The head is normocephalic and atraumatic. Pupils are equal, round, and reactive to light condition consensually. NECK: Supple. Trachea midline. There was no lymphadenopathy or thyromegaly. LUNGS: Clear to auscultation and percussion. HEART: Regular rate and rhythm without rubs, murmurs, or gallops. ABDOMEN: Soft. Bowel sounds were active. EXTREMITIES: No clubbing, cyanosis, or edema. NEUROLOGIC: She is alert and oriented x4. Cranial nerves II through XII intact. LABORATORY AND ANCILLARY DATA: CBC within normal limits. Chemistry within normal limits except glucose 185. Imaging reports, chest x-ray no acute process. EKG normal sinus rhythm. No signs of ischemia. ASSESSMENT: 1. Shortness of breath, etiology unclear. 2. Degenerative joint disease. 3. Obesity. 4. Type 2 diabetes mellitus. 5. Diastolic heart failure. 6. Hypertensive cardiovascular disease. 7. COPD. 8. Status post pacemaker. PLAN: 1. Admit to telemetry. 2. Rule out acute myocardial ischemia. 3. Check 2D echo. 4. Consider Pulmonary and Cardiology consult. Abbey Lozano M.D. DR: EDDIE JOB#: [id number] CC:
[2018-03-02 20:00] VITALS: BP 147/48
[2018-03-03] VITALS: BP 145/57
[2018-03-03 03:53] VITALS: BP 140/54
[2018-03-03] MEDS: NovoLOG Insulin Flexpen SUBQ SCH ×4 (06:09→20:47)
--- NOTE | 2018-03-03 06:59 | General Progress Note ---
Assessment/Plan Assessment/Plan COPD exacerbation - see orders Subjective Allergies: Coded Allergies: AZITHROMYCIN (Verified Allergy, Intermediate, ITCHINESS, 10/15/13) QUESTIONABLE ALLERGIC RXN BUT PT STARTED ITCHING AFTER BEING GIVEN A DOSE BUT PT NOT SURE Subjective No new c/o Objective Last 24 Hour Vital Signs Date Time Temp Pulse Resp B/P (MAP) Pulse Ox O2 Delivery O2 Flow Rate FiO2 03/03/18 03:53 97.0 68 18 140/54 99 Room Air 97.0 03/03/18 03:47 66 03/03/18 00:00 97.3 60 20 145/57 99 Room Air 97.3 03/02/18 23:51 67 03/02/18 20:33 63 147/48 03/02/18 20:00 97.0 63 18 147/48 100 97.0 03/02/18 20:00 61 03/02/18 16:00 61 03/02/18 12:00 97.8 68 18 148/75 99 Room Air 97.8 03/02/18 12:00 64 03/02/18 11:44 149/67 03/02/18 11:43 61 143/73 03/02/18 08:00 60 03/02/18 08:00 97.0 56 18 149/67 96 Room Air 97.0 Intake and Output 03/02/18 03/03/18 19:00 07:00 Intake Total 360 ml 200 ml Balance 360 ml 200 ml Intake Oral 360 ml 200 ml # Voids 3 Height (Feet): 5 Height (Inches): 5.00 Weight (Pounds): 249 Objective CV RR Lungs CTA Abd SNT BS + E No CCE Abbey Lozano MD Mar 03, 2018 06:59
[2018-03-03 08:00] VITALS: BP 138/52
[2018-03-03] MEDS: Aspirin EC 81mg tab ORAL SCH (09:19)
[2018-03-03] MEDS: Irbesartan 150mg tablet ORAL SCH (09:19)
[2018-03-03] MEDS: Labetalol 200mg tab ORAL SCH ×2 (09:20→20:45)
[2018-03-03] MEDS: Heparin 5000 units/ml inj SUBQ SCH ×2 (09:24→20:46)
[2018-03-03 12:00] VITALS: BP 109/49
--- NOTE | 2018-03-03 15:55 | Physician Query ---
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 Question asked do not imply a particular answer is desired/expected Clinical Documentation States: "Heart Failure / CHF" documented in: H & P (03/02/18) "Diastolic heart failure" "Shortness of breath, etiology unknown" Clinical Findings Show: BNP: 252 Diuretic Lasix 40 mg IV Please Clarify: Acuity [] Acute [] Chronic [] Acute on Chronic Condition Present on Admission: [] Yes [] No []Clinically Undeterminable Please also document in your Progress Notes and/or Discharge Summary and indicate if the condition was present on admission. Dr. AVTAR LOVE Date/Time MTDD
[2018-03-03 16:00] VITALS: BP 136/63
--- NOTE | 2018-03-03 16:26 | Cardiology Report ---
APPROVED REPORT EXAM: Two-dimensional and M-mode echocardiogram with Doppler and color Doppler. INDICATION Congestive Heart Failure M-Mode DIMENSIONS IVSd1.4 (0.7-1.1cm)Left Atrium (MM)3.3 (1.6-4.0cm) LVDd4.7 (3.5-5.6cm)Aortic Root3.2 (2.0-3.7cm) PWd1.3 (0.7-1.1cm)Aortic Cusp Exc.1.7 (1.5-2.0cm) IVSs2.0 cm LVDs3.1 (2.5-4.0cm) PWs1.5 cm Normal left ventricular chamber size, systolic function and wall motion to extent visualized. Left ventricular ejection fraction estimated to be 60-65 %. Moderate left ventricular hypertrophy by 2-D. No evidence of pericardial effusion. All other cardiac chamber sizes are within normal limits. Focal aortic valve sclerosis with adequate cusp excursion. Moderately Thickened mitral valve leaflets with normal excursion. Moderately Mitral annulus and aortic root calcification. Normal pulmonic valve structure. Normal tricuspid valve structure. IVC dilated at 2.4 cm with physiologic collapse suggestive of increased RA pressure. Pacemaker wire present in the right side chambers. A color flow and spectral Doppler study was performed and revealed: No aortic regurgitation. Trace mitral regurgitation. Mitral diastolic velocities suggest reduced left ventricular relaxation c/w mild LV diastolic dysfunction (Grade I ). Mild to moderate tricuspid regurgitation. Tricuspid systolic velocities suggests peak right ventricular systolic pressure of 46 mmHg, consistent with moderate pulmonary hypertension. No Pulmonic regurgitation present.
[2018-03-03 20:00] VITALS: BP 134/64
[2018-03-04] VITALS: BP 121/76
[2018-03-04 04:00] VITALS: BP 132/61
[2018-03-04] MEDS: NovoLOG Insulin Flexpen SUBQ SCH ×4 (06:14→21:01)
--- NOTE | 2018-03-04 07:13 | General Progress Note ---
Assessment/Plan Assessment/Plan COPD exacerbation - see orders DJD pain control. Depression - seen by Dr. Diaz Subjective Allergies: Coded Allergies: AZITHROMYCIN (Verified Allergy, Intermediate, ITCHINESS, 10/15/13) QUESTIONABLE ALLERGIC RXN BUT PT STARTED ITCHING AFTER BEING GIVEN A DOSE BUT PT NOT SURE Subjective Depressed over loss of family members. c/o joint pain. Objective Last 24 Hour Vital Signs Date Time Temp Pulse Resp B/P (MAP) Pulse Ox O2 Delivery O2 Flow Rate FiO2 03/04/18 04:00 65 03/04/18 04:00 96.6 76 19 132/61 95 Room Air 96.6 03/04/18 00:00 60 03/04/18 00:00 97.2 80 20 121/76 94 Room Air 97.2 03/03/18 20:45 60 136/63 03/03/18 20:00 60 03/03/18 20:00 96.4 65 19 134/64 98 Room Air 96.4 03/03/18 16:00 97.5 60 20 136/63 98 Room Air 97.5 03/03/18 16:00 60 03/03/18 12:00 61 03/03/18 12:00 97.0 66 20 109/49 100 Room Air 97.0 03/03/18 09:20 68 138/64 03/03/18 09:19 138/64 03/03/18 08:00 63 03/03/18 08:00 97.2 60 20 138/52 100 Room Air 97.2 Intake and Output 03/03/18 03/04/18 19:00 07:00 Intake Total 360 ml Balance 360 ml Intake Oral 360 ml # Voids 2 4 Height (Feet): 5 Height (Inches): 5.00 Weight (Pounds): 248 Objective CV RR Lungs CTA Abd SNT BS + E No CCE Abbey Lozano MD Mar 04, 2018 07:13
[2018-03-04 08:00] VITALS: BP 132/79
[2018-03-04] MEDS: Labetalol 200mg tab ORAL SCH ×2 (08:56→20:55)
[2018-03-04] MEDS: Aspirin EC 81mg tab ORAL SCH (08:57)
[2018-03-04] MEDS: Irbesartan 150mg tablet ORAL SCH (08:57)
[2018-03-04] MEDS: Heparin 5000 units/ml inj SUBQ SCH ×2 (08:58→21:00)
[2018-03-04] MEDS ORDERED: Milk of Magnesia 30ml Ud ORAL PRN (09:30)
[2018-03-04] MEDS: Docusate 100mg cap ORAL SCH ×2 (09:55→17:24)
[2018-03-04] MEDS: Levofloxacin 500mg tab ORAL SCH (09:55)
[2018-03-04 12:00] VITALS: BP 95/64
--- NOTE | 2018-03-04 13:48 | General Progress Note ---
Assessment/Plan Status: stable Assessment/Plan mdd lexapro 10mg qam Subjective Date patient seen: Mar 04, 2018 Neurologic/Psychiatric: Reports: anxiety, depressed, emotional problems - lost two of her sons Allergies: Coded Allergies: AZITHROMYCIN (Verified Allergy, Intermediate, ITCHINESS, 10/15/13) QUESTIONABLE ALLERGIC RXN BUT PT STARTED ITCHING AFTER BEING GIVEN A DOSE BUT PT NOT SURE Objective Last 24 Hour Vital Signs Date Time Temp Pulse Resp B/P (MAP) Pulse Ox O2 Delivery O2 Flow Rate FiO2 03/04/18 12:00 69 03/04/18 12:00 97.9 71 18 95/64 93 Nasal Cannula 2.0 97.9 03/04/18 08:57 132/79 03/04/18 08:56 69 132/79 03/04/18 08:00 97.8 67 20 132/79 96 Nasal Cannula 2.0 97.8 03/04/18 08:00 69 03/04/18 04:00 65 03/04/18 04:00 96.6 76 19 132/61 95 Room Air 96.6 03/04/18 00:00 60 03/04/18 00:00 97.2 80 20 121/76 94 Room Air 97.2 03/03/18 20:45 60 136/63 03/03/18 20:00 60 03/03/18 20:00 96.4 65 19 134/64 98 Room Air 96.4 03/03/18 16:00 97.5 60 20 136/63 98 Room Air 97.5 03/03/18 16:00 60 Intake and Output 03/03/18 03/04/18 19:00 07:00 Intake Total 360 ml Balance 360 ml Intake Oral 360 ml # Voids 2 4 Height (Feet): 5 Height (Inches): 5.00 Weight (Pounds): 248 General Appearance: no apparent distress, alert Neurologic: oriented x 3, responsive, depressed affect Sonny Diaz M.D. Mar 04, 2018 13:48
[2018-03-04 16:00] VITALS: BP 120/65
[2018-03-04 20:00] VITALS: BP 120/65
[2018-03-05] VITALS: BP 132/61
[2018-03-05 04:00] VITALS: BP 124/76
[2018-03-05] MEDS: NovoLOG Insulin Flexpen SUBQ SCH ×4 (06:46→21:35)
--- NOTE | 2018-03-05 07:27 | General Progress Note ---
Assessment/Plan Assessment/Plan COPD exacerbation - worse! To NATHALIE Bello. DJYoan pain control. Depression - seen by Dr. Diaz Subjective Allergies: Coded Allergies: AZITHROMYCIN (Verified Allergy, Intermediate, ITCHINESS, 10/15/13) QUESTIONABLE ALLERGIC RXN BUT PT STARTED ITCHING AFTER BEING GIVEN A DOSE BUT PT NOT SURE Subjective C/o SOB.Depressed over loss of family members. c/o joint pain. Objective Last 24 Hour Vital Signs Date Time Temp Pulse Resp B/P (MAP) Pulse Ox O2 Delivery O2 Flow Rate FiO2 03/05/18 04:00 97.4 79 20 124/76 98 Room Air 97.4 03/05/18 04:00 60 03/05/18 00:00 96.8 80 22 132/61 97 Room Air 96.8 03/04/18 20:55 60 152/56 03/04/18 20:00 60 03/04/18 20:00 97.7 60 18 120/65 98 Room Air 97.7 03/04/18 16:00 97.0 63 19 120/65 94 Nasal Cannula 2.0 97.0 03/04/18 15:47 60 03/04/18 12:00 69 03/04/18 12:00 97.9 71 18 95/64 93 Nasal Cannula 2.0 97.9 03/04/18 08:57 132/79 03/04/18 08:56 69 132/79 03/04/18 08:00 97.8 67 20 132/79 96 Nasal Cannula 2.0 97.8 03/04/18 08:00 69 Intake and Output 03/04/18 03/05/18 19:00 07:00 Intake Total 500 ml Output Total 0 ml Balance 500 ml Other 500 ml Output Stool Total 0 ml # Voids 2 3 Height (Feet): 5 Height (Inches): 5.00 Weight (Pounds): 248 Objective CV RR Lungs B wheezes!! Abd SNT BS + E No CCE Abbey Lozano MD Mar 05, 2018 07:27
[2018-03-05 08:00] VITALS: BP 142/65
[2018-03-05] MEDS ORDERED: Solu-MEDROL 125mg Inj IVP SCH (09:00)
[2018-03-05] MEDS: Aspirin EC 81mg tab ORAL SCH (09:04)
[2018-03-05] MEDS: Labetalol 200mg tab ORAL SCH ×2 (09:04→21:29)
[2018-03-05] MEDS: Irbesartan 150mg tablet ORAL SCH (09:04)
[2018-03-05] MEDS: Levofloxacin 500mg tab ORAL SCH (09:05)
[2018-03-05] MEDS: Docusate 100mg cap ORAL SCH ×2 (09:05→17:21)
[2018-03-05] MEDS: Heparin 5000 units/ml inj SUBQ SCH ×2 (09:08→21:33)
[2018-03-05 11:52] VITALS: BP 146/50
--- NOTE | 2018-03-05 12:53 | General Progress Note ---
Assessment/Plan Assessment/Plan mdd anxiety lexapro 10mg qam provided ro/st Subjective Date patient seen: Mar 05, 2018 Neurologic/Psychiatric: Reports: anxiety, depressed, emotional problems Allergies: Coded Allergies: AZITHROMYCIN (Verified Allergy, Intermediate, ITCHINESS, 10/15/13) QUESTIONABLE ALLERGIC RXN BUT PT STARTED ITCHING AFTER BEING GIVEN A DOSE BUT PT NOT SURE Objective Last 24 Hour Vital Signs Date Time Temp Pulse Resp B/P (MAP) Pulse Ox O2 Delivery O2 Flow Rate FiO2 03/05/18 11:52 97.9 60 20 146/50 97 Room Air 97.9 03/05/18 09:04 142/65 03/05/18 09:04 60 142/65 03/05/18 08:00 97.5 60 19 142/65 99 Room Air 97.5 03/05/18 08:00 61 03/05/18 04:00 97.4 79 20 124/76 98 Room Air 97.4 03/05/18 04:00 60 03/05/18 00:00 96.8 80 22 132/61 97 Room Air 96.8 03/04/18 20:55 60 152/56 03/04/18 20:00 60 03/04/18 20:00 97.7 60 18 120/65 98 Room Air 97.7 03/04/18 16:00 97.0 63 19 120/65 94 Nasal Cannula 2.0 97.0 03/04/18 15:47 60 Intake and Output 03/04/18 03/05/18 19:00 07:00 Intake Total 500 ml Output Total 0 ml Balance 500 ml Other 500 ml Output Stool Total 0 ml # Voids 2 3 Height (Feet): 5 Height (Inches): 5.00 Weight (Pounds): 250 General Appearance: no apparent distress, alert Neurologic: oriented x 3, responsive, depressed affect Sonny Diaz M.D. Mar 05, 2018 12:53
[2018-03-05 16:00] VITALS: BP 146/67
[2018-03-05 20:00] VITALS: BP 161/53
[2018-03-06] VITALS (7 sets, daily range): BP systolic 146–175; BP diastolic 54–80
[2018-03-06] MEDS: NovoLOG Insulin Flexpen SUBQ SCH ×4 (06:35→21:38)
[2018-03-06] MEDS: Labetalol 200mg tab ORAL SCH ×2 (08:20→21:33)
[2018-03-06] MEDS: Aspirin EC 81mg tab ORAL SCH (08:21)
[2018-03-06] MEDS: Levofloxacin 500mg tab ORAL SCH (08:21)
[2018-03-06] MEDS: Docusate 100mg cap ORAL SCH ×2 (08:21→17:59)
[2018-03-06] MEDS: Irbesartan 150mg tablet ORAL SCH (08:22)
[2018-03-06] MEDS: Heparin 5000 units/ml inj SUBQ SCH ×2 (08:24→21:36)
[2018-03-06 08:28] LABS: BASOPHILS % (AUTO) 1.4 % (0.0-2.0); EOSINOPHILS % (AUTO) 3.6 % (0.0-3.0); HEMATOCRIT 37.3 % (37.0-47.0); HEMOGLOBIN 11.9 G/DL (12.0-16.0); LYMPHOCYTES % (AUTO) 23.8 % (20.0-45.0); MEAN CORPUSCULAR VOLUME 77 FL (80-99); MONOCYTES % (AUTO) 8.8 % (1.0-10.0); NEUTROPHILS % (AUTO) 62.4 % (45.0-75.0); PLATELET COUNT 187 K/UL (150-450); RED BLOOD COUNT 4.86 M/UL (4.20-5.40); RED CELL DISTRIBUTION WIDTH 12.5 % (11.6-14.8); WHITE BLOOD COUNT 5.6 K/UL (4.8-10.8)
[2018-03-06 09:06] LABS: ANION GAP 7 mmol/L (5-15); BLOOD UREA NITROGEN 31 mg/dL (7-18); CALCIUM 10.4 MG/DL (8.5-10.1); CARBON DIOXIDE 28 MMOL/L (21-32); CHLORIDE 104 MMOL/L (98-107); CREATININE 1.1 MG/DL (0.55-1.30); POTASSIUM 5.2 MMOL/L (3.5-5.1); SODIUM 139 MMOL/L (136-145)
--- NOTE | 2018-03-06 09:24 | Consultation ---
Consult Note Consult Note 82-year-old female admitted for shortness of breath and respiratory distress. Patient care discussed and I was asked to follow and assist with disposition. Patient with noted cough and congestion. Patient overall with difficult to obtain history. patient imaging noted and negative but patient does have significant pulmonary hypertension. unclear as to sleep apnea status. Patient with cardiopulmonary disease. Patient without recent fevers or chills at this time. PAST MEDICAL HISTORY: 1. Degenerative joint disease. 2. Obesity. 3. Type 2 diabetes mellitus. 4. Diastolic heart failure. 5. Hypertensive cardiovascular disease. 6. COPD. 7. Status post pacemaker. MEDICATIONS: reviewed and reconciled ALLERGIES: reviewed FAMILY HISTORY: Unremarkable. SOCIAL HISTORY: lives at home. Habits, she is nonsmoker and nondrinker. There is no history of illicit drug abuse. REVIEW OF SYSTEMS: reviewed PHYSICAL EXAMINATION: GENERAL: This is an elderly female, who is in no acute distress. VITAL SIGNS: Blood pressure 175/50, pulse 64 and regular, respirations 20, and temperature 98 degrees. HEENT: The head is normocephalic and atraumatic. no thrush; positive gag NECK: Supple. Trachea midline. There was no lymphadenopathy or thyromegaly. LUNGS: reduced air entry without rhonchi or wheeze HEART: Regular rate and rhythm without rubs, murmurs, or gallops. ABDOMEN: Soft. Bowel sounds were active. no HSM EXTREMITIES: No clubbing, cyanosis, or edema. NEUROLOGIC: She is alert and oriented x4. Cranial nerves II through XII intact. weak Intake and Output Last 48 Hour 03/04/18 03/05/18 03/05/18 03/06/18 19:00 07:00 19:00 07:00 Intake Total 500 ml 500 ml 300 ml Output Total 0 ml Balance 500 ml 500 ml 300 ml Intake Oral 500 ml 300 ml Other 500 ml Output Stool Total 0 ml # Voids 2 3 1 5 Laboratory Tests Test 03/06/18 06:32 Sodium Level 139 MMOL/L (136-145) Potassium Level 5.2 MMOL/L (3.5-5.1) H Chloride Level 104 MMOL/L (98-107) Carbon Dioxide Level 28 MMOL/L (21-32) Anion Gap 7 mmol/L (5-15) Blood Urea Nitrogen 31 mg/dL (7-18) H Creatinine 1.1 MG/DL (0.55-1.30) Estimat Glomerular Filtration Rate mL/min (>60) Glucose Level 191 MG/DL (74-106) H Calcium Level 10.4 MG/DL (8.5-10.1) H Magnesium Level 1.8 MG/DL (1.8-2.4) IMPRESSION COPD shortness of breath CHF debility pulmonary hypertension PLAN off solumedrol off prednisone albuterol as needed outpatient work up for pulmonary hypertension recommended sleep study pft monitor fluid status impression, plan, and exam edited and reviewed in detail care discussed with HANK RYAN Mar 06, 2018 09:24
[2018-03-06] MEDS ORDERED: Milk of Magnesia 30ml Ud ORAL PRN (09:30)
--- NOTE | 2018-03-06 10:57 | General Progress Note ---
Assessment/Plan Assessment/Plan COPD exacerbation - worse! To NATHALIE Bello. Refusing systemic Corticosteroids. Try inhaled corticosteroids. DJD pain control. Depression - seen by Dr. Diaz Subjective Allergies: Coded Allergies: AZITHROMYCIN (Verified Allergy, Intermediate, ITCHINESS, 10/15/13) QUESTIONABLE ALLERGIC RXN BUT PT STARTED ITCHING AFTER BEING GIVEN A DOSE BUT PT NOT SURE Subjective C/o SOB.Depressed over loss of family members. c/o joint pain. Objective Last 24 Hour Vital Signs Date Time Temp Pulse Resp B/P (MAP) Pulse Ox O2 Delivery O2 Flow Rate FiO2 03/06/18 09:22 61 153/73 03/06/18 08:22 175/70 03/06/18 08:20 60 175/70 03/06/18 08:00 97.5 61 18 175/70 100 97.5 03/06/18 08:00 Nasal Cannula 2.0 03/06/18 04:00 96.4 61 20 150/69 96 Room Air 96.4 03/06/18 00:00 98.1 60 19 149/54 96 98.1 03/05/18 21:29 63 161/53 03/05/18 20:00 96.4 63 21 161/53 97 96.4 03/05/18 16:00 97.7 60 20 146/67 97 Room Air 97.7 03/05/18 12:00 60 03/05/18 11:52 97.9 60 20 146/50 97 Room Air 97.9 Intake and Output 03/05/18 03/06/18 19:00 07:00 Intake Total 500 ml 300 ml Balance 500 ml 300 ml Intake Oral 500 ml 300 ml # Voids 1 5 Laboratory Tests 03/06/18 06:32: White Blood Count 5.6, Red Blood Count 4.86, Hemoglobin 11.9L, Hematocrit 37.3, Mean Corpuscular Volume 77L, Mean Corpuscular Hemoglobin 24.4L, Mean Corpuscular Hemoglobin Concent 31.8L, Red Cell Distribution Width 12.5, Platelet Count 187, Mean Platelet Volume 6.6, Neutrophils (%) (Auto) 62.4, Lymphocytes (%) (Auto) 23.8, Monocytes (%) (Auto) 8.8, Eosinophils (%) (Auto) 3.6H, Basophils (%) (Auto) 1.4, Sodium Level 139, Potassium Level 5.2H, Chloride Level 104, Carbon Dioxide Level 28, Anion Gap 7, Blood Urea Nitrogen 31H, Creatinine 1.1, Estimat Glomerular Filtration Rate , Glucose Level 191H, Calcium Level 10.4H, Magnesium Level 1.8 Height (Feet): 5 Height (Inches): 5.00 Weight (Pounds): 0 Objective CV RR Lungs B wheezes!! Abd SNT BS + E No CCE Abbey Lozano MD Mar 06, 2018 10:57
[2018-03-06] MEDS: Acetaminophen 500mg (ES) tab ORAL PRN ×2 (13:52→23:36)
[2018-03-07 04:00] VITALS: BP 159/98
[2018-03-07] MEDS: NovoLOG Insulin Flexpen SUBQ SCH ×2 (06:38→11:48)
[2018-03-07 08:12] VITALS: BP 159/72
[2018-03-07] MEDS: Levofloxacin 500mg tab ORAL SCH (08:13)
[2018-03-07] MEDS: Docusate 100mg cap ORAL SCH (08:13)
[2018-03-07] MEDS: Aspirin EC 81mg tab ORAL SCH (08:14)
[2018-03-07] MEDS: Irbesartan 150mg tablet ORAL SCH (08:14)
[2018-03-07] MEDS: Labetalol 200mg tab ORAL SCH (08:14)
[2018-03-07] MEDS: Heparin 5000 units/ml inj SUBQ SCH (08:21)
[2018-03-07 12:00] VITALS: BP 149/86
--- NOTE | 2018-03-07 12:03 | Pulmonology Progress Note ---
Assessment/Plan Assessment/Plan IMPRESSION COPD shortness of breath CHF debility pulmonary hypertension PLAN off solumedrol off prednisone albuterol as needed outpatient work up for pulmonary hypertension recommended sleep study pft once discharged monitor fluid status impression, plan, and exam edited and reviewed in detail care discussed with RN Subjective Allergies: Coded Allergies: AZITHROMYCIN (Verified Allergy, Intermediate, ITCHINESS, 10/15/13) QUESTIONABLE ALLERGIC RXN BUT PT STARTED ITCHING AFTER BEING GIVEN A DOSE BUT PT NOT SURE Subjective care noted and reviewed findings noted and discussed some pain Objective Last 24 Hour Vital Signs Date Time Temp Pulse Resp B/P (MAP) Pulse Ox O2 Delivery O2 Flow Rate FiO2 03/07/18 08:14 60 159/72 03/07/18 08:14 159/72 03/07/18 08:12 97.3 60 18 159/72 100 Nasal Cannula 2.0 97.3 03/07/18 04:00 97.7 62 18 159/98 94 97.7 03/07/18 00:35 97.0 03/06/18 23:51 97.0 73 19 146/80 90 97.0 03/06/18 23:36 97.5 03/06/18 21:33 60 161/72 03/06/18 16:00 Nasal Cannula 2.0 03/06/18 15:47 97.5 60 18 161/72 100 97.5 03/06/18 13:52 97.9 Intake and Output 03/06/18 03/07/18 19:00 07:00 Intake Total 480 ml 540 ml Balance 480 ml 540 ml Intake Oral 480 ml 540 ml # Voids 2 4 # Bowel Movements 2 Objective WDWN NAD reduced breath sounds bilaterally without rhonchi or wheeze [id number] without MRG NABS nontender no HSM no CC mild edema obese nonfocal Current Medications Medications (Trade) Dose Ordered Sig/Haider Route PRN Reason Start Time Stop Time Status Last Admin Dose Admin Acetaminophen (Tylenol) 500 mg Q6H PRN ORAL Moderate Pain (Pain Scale 4-6) 03/05/18 16:00 03/31/18 15:59 03/06/18 23:36 Aspirin (Ecotrin) 81 mg DAILY ORAL 03/06/18 09:00 04/01/18 08:59 03/07/18 08:14 Budesonide/ Formoterol Fumarate (Symbicort 160/ 4.5) 2 puff TWICE A DAY INH 03/06/18 18:00 04/05/18 17:59 03/07/18 09:03 Dextrose (Dextrose 50%) 25 ml STAT PRN IV Hypoglycemia 03/05/18 18:30 03/31/18 18:29 Dextrose (Dextrose 50%) 50 ml STAT PRN IV Hypoglycemia 03/05/18 18:30 03/31/18 18:29 Docusate Sodium (Colace) 100 mg TWICE A DAY ORAL 03/05/18 18:00 04/03/18 09:29 03/07/18 08:13 Escitalopram Oxalate (Lexapro) 10 mg DAILY ORAL 03/06/18 09:00 04/04/18 08:59 03/07/18 08:14 Furosemide (Lasix) 20 mg DAILY ORAL 03/06/18 09:00 04/01/18 08:59 03/07/18 08:14 Heparin Sodium (Porcine) (Heparin 5000 units/ml) 5,000 units EVERY 12 HOURS SUBQ 03/05/18 21:00 03/31/18 20:59 03/07/18 08:21 Hydromorphone HCl (Dilaudid) 1 mg Q6H PRN IVP Severe Pain (Pain Scale 7-10) 03/05/18 18:30 03/08/18 18:29 Insulin Aspart (NovoLOG) BEFORE MEALS AND HS SUBQ 03/05/18 16:30 03/31/18 20:59 03/07/18 11:48 Irbesartan (Avapro) 300 mg DAILY ORAL 03/06/18 09:00 04/01/18 08:59 03/07/18 08:14 Labetalol HCl (Normodyne) 200 mg Q12HR ORAL 03/05/18 21:00 03/31/18 20:59 03/07/18 08:14 Levofloxacin (Levaquin) 500 mg DAILY ORAL 03/06/18 09:00 03/08/18 08:59 03/07/18 08:13 Magnesium Hydroxide (Mom) 30 ml DAILYPRN PRN ORAL Constipation 03/06/18 09:30 04/03/18 09:29 03/06/18 18:12 HANK KNUTSON Mar 07, 2018 12:03
--- NOTE | 2018-03-07 12:16 | General Progress Note ---
Assessment/Plan Assessment/Plan Improved. DC home Subjective Allergies: Coded Allergies: AZITHROMYCIN (Verified Allergy, Intermediate, ITCHINESS, 10/15/13) QUESTIONABLE ALLERGIC RXN BUT PT STARTED ITCHING AFTER BEING GIVEN A DOSE BUT PT NOT SURE Subjective Less SOB Objective Last 24 Hour Vital Signs Date Time Temp Pulse Resp B/P (MAP) Pulse Ox O2 Delivery O2 Flow Rate FiO2 03/07/18 08:14 60 159/72 03/07/18 08:14 159/72 03/07/18 08:12 97.3 60 18 159/72 100 Nasal Cannula 2.0 97.3 03/07/18 04:00 97.7 62 18 159/98 94 97.7 03/07/18 00:35 97.0 03/06/18 23:51 97.0 73 19 146/80 90 97.0 03/06/18 23:36 97.5 03/06/18 21:33 60 161/72 03/06/18 16:00 Nasal Cannula 2.0 03/06/18 15:47 97.5 60 18 161/72 100 97.5 03/06/18 13:52 97.9 Intake and Output 03/06/18 03/07/18 19:00 07:00 Intake Total 480 ml 540 ml Balance 480 ml 540 ml Intake Oral 480 ml 540 ml # Voids 2 4 # Bowel Movements 2 Height (Feet): 5 Height (Inches): 5.00 Weight (Pounds): 0 Objective CV RR Lungs B wheezes!! Abd SNT BS + E No CCE Abbey Lozano MD Mar 07, 2018 12:16
--- NOTE | 2018-03-08 22:26 | Psych Consult Progress Note ---
Psych Consult Progress Note Consult 03/06/18 mdd anxiety lexapro 10mg qam provided ro/st Problems: (1) DM circ dis type I Status: Acute (2) Generalized osteoarthrosis Status: Acute (3) Upper respiratory infection Status: Acute (4) Upper respiratory infection Status: Acute (5) COPD (chronic obstructive pulmonary disease) Status: Acute (6) Urinary tract infection Status: Acute (7) Abdominal pain, right upper quadrant Status: Acute (8) Back injury Status: Acute (9) Back pain Status: Acute (10) Diabetes (11) Dyspnea Status: Acute (12) Dyspnea Status: Acute (13) CHF (congestive heart failure) Status: Acute (14) Sarcoid Status: Acute (15) Bronchitis Status: Acute (16) Pneumonia Status: Acute (17) HTN (hypertension) (18) Pacemaker (19) Shortness of breath dyspnea Status: Acute (20) ACS (acute coronary syndrome) Status: Acute (21) Asthma attack Status: Acute (22) Acute exacerbation of chronic obstructive pulmonary disease (23) DM (diabetes mellitus), type 1 uncontrolled with peripheral vascular complication Status: Acute (24) History of CHF (congestive heart failure) (25) Knee contusion Status: Acute (26) Asthma exacerbation (27) [id number] Status: Acute Sonny Diaz M.D. Mar 08, 2018 22:26
--- NOTE | 2018-03-08 22:26 | General Progress Note ---
Assessment/Plan Status: stable, progressing Assessment/Plan mdd anxiety lexapro 10mg qam provided ro/st Subjective Date patient seen: Mar 07, 2018 Neurologic/Psychiatric: Reports: anxiety, depressed Allergies: Coded Allergies: AZITHROMYCIN (Verified Allergy, Intermediate, ITCHINESS, 10/15/13) QUESTIONABLE ALLERGIC RXN BUT PT STARTED ITCHING AFTER BEING GIVEN A DOSE BUT PT NOT SURE Objective Intake and Output 03/07/18 03/08/18 19:00 07:00 Intake Total 720 ml Balance 720 ml Intake Oral 720 ml # Voids 3 Height (Feet): 5 Height (Inches): 5.00 Weight (Pounds): 0 General Appearance: no apparent distress, alert Neurologic: oriented x 3, responsive, depressed affect Sonny Diaz M.D. Mar 08, 2018 22:26
--- NOTE | 2018-03-09 17:33 | Discharge Summary ---
Discharge Summary Discharge Summary Discharge Summary DATE OF ADMISSION: 03/01/2018 DATE OF DISCHARGE: 03/07/2018 CONSULTANTS: Dr. Sonny Bello [facility] HOSPITAL COURSE: Patient is an 82-year-old female, who came from home presented to ED with dry cough and congestion. He has history of CHF and did not take her Lasix. She also complained of polyuria without dysuria. She has medical history significant for hypertension, pacemaker, asthma, COPD, and diabetes. On evaluation at ED, blood work did not show any leukocytosis. Chest x-ray was negative for acute pneumonia or CHF. BNP was within normal limits. EKG was in normal sinus rhythm. She was admitted to telemetry for evaluation of shortness of breath. She was initially placed on Solu-Medrol and prednisone. She was taken off steroids by scorekeeper. She was given albuterol breathing treatments prn. She was given Symbicort twice a day. She was continued on her home meds. Echocardiogram showed ejection fraction of 60-65%. Psychiatric evaluation was done. Patient has anxiety disorder and was given prn Ativan. She was eventually started on Lexapro 10 mg daily. Breathing improved, she was eventually discharged home. FINAL DIAGNOSES: Acute COPD exacerbation Degenerative joint disease Depression Anxiety Diastolic congestive heart failure Pulmonary hypertension DISPOSITION: Patient was discharged home DISCHARGE MEDICATIONS: Refer to Discharge Medication List. DISCHARGE INSTRUCTIONS: Follow up in a week. Recommend pulmonary hypertension workup and sleep study and PFT as outpatient. I have been assigned to dictate discharge summary on this account, and I was not involved in the patient's management. Odalis Mcmahon NP Mar 09, 2018 17:33
--- NOTE | 2018-04-21 00:54 | Physician Query ---
PLEASE COMPLETE THE DOCUMENT BEFORE SIGNING Dear AVTAR Flores Date: 04/20/18 Rag Baler/CDS Name: Day Malave Rag Baler / CDS Phone #[phone] Exercise your independent professional judgment when responding to query. Question asked do not imply a particular answer is desired/expected Clinical Documentation States: "Heart Failure / CHF" documented in: H & P (03/02/18) & Discharge summary "Diastolic heart failure" "Shortness of breath, etiology unknown" Clinical Findings Show: BNP: 252 Diuretic Lasix 40 mg IV Please Clarify THE "DIASTOLIC CONGESTIVE HEART FAILURE:" Acuity: [] Acute [x]x Chronic [] Acute on Chronic Condition Present on Admission: [x] Yes [] No []Clinically Undeterminable Dr. AVTAR LOVE Date/Time MTDD
== END 2018-03-07 14:00 | disposition home or self-care (01) | DRG 191 ==
LOC: EMR 12:16 → 2E 12:17 → EDBEDREQ 13:13 → 4W 03-05 15:02
DX: J44.1 Chronic obstructive pulmonary disease with (acute) exacerbation (principal); N39.0 Urinary tract infection, site not specified; I50.32 Chronic diastolic (congestive) heart failure; I11.0 Hypertensive heart disease with heart failure; M19.90 Unspecified osteoarthritis, unspecified site; Z95.0 Presence of cardiac pacemaker; E66.9 Obesity, unspecified; Z88.1 Allergy status to other antibiotic agents; F32.9 Major depressive disorder, single episode, unspecified; I27.20 Pulmonary hypertension, unspecified; F41.9 Anxiety disorder, unspecified; Z79.4 Long term (current) use of insulin; E11.9 Type 2 diabetes mellitus without complications
CPT/HCPCS: 36415; 71045; 80048; 80053; 81003; 82550; 82553; 82962; 83735; 83880; 84484; 85025; 93005; 93306; 94640; 94664; 99285; J1815; J8499

== ENCOUNTER 2018-05-16 15:30 | Inpatient (IN) | payer MEDICARE, MEDICAID ==
[~2018-05-16] VITALS: Ht 177.8 cm; Wt 139.8 kg
[2018-05-16 15:47] VITALS: BP 156/52
--- NOTE | 2018-05-16 16:01 | Emergency Room Report ---
History of Present Illness General Chief Complaint: Dyspnea/Respdistress Source: Patient, Medical Record Present Illness HPI 82yo F w/ h/o HTN and CHF p/w progressively worsening SOB x 1 week, 2 pillow orthopnea, PND, Reports cough with thick yellow mucus as well as dysuria for the past 2 days Denies fever, chest pain, syncope, leg pain, and does admit to noncompliance with her water pill this past week Allergies: Coded Allergies: AZITHROMYCIN (Verified Allergy, Intermediate, ITCHINESS, 10/15/13) QUESTIONABLE ALLERGIC RXN BUT PT STARTED ITCHING AFTER BEING GIVEN A DOSE BUT PT NOT SURE Patient History Past Medical History: see triage record Reviewed Nursing Documentation: PMH: Agreed; PSxH: Agreed Nursing Documentation-PMH Past Medical History: No History, Except For Hx Cardiac Problems: Yes Hx Hypertension: Yes Hx Pacemaker: Yes Hx Asthma: Yes Hx COPD: Yes Hx Diabetes: Yes Hx Cancer: No Hx Gastrointestinal Problems: No Hx Neurological Problems: Yes Hx Tremors: Yes Hx Vertigo: Yes Hx Dizziness: Yes Hx Syncope: Yes Hx Headaches: Yes Hx Weakness: Yes Hx Fatigue: Yes Review of Systems All Other Systems: negative except mentioned in HPI Physical Exam Vital Signs Date Time Temp Pulse Resp B/P (MAP) Pulse Ox O2 Delivery O2 Flow Rate FiO2 05/16/18 15:37 98.2 60 22 156/52 97 Room Air 98.2 Sp02 EP Interpretation: reviewed, normal General Appearance: no apparent distress, alert, non-toxic Head: normocephalic Eyes: bilateral eye normal inspection, bilateral eye PERRL, bilateral eye EOMI ENT: normal ENT inspection, hearing grossly normal, normal pharynx, no angioedema, normal voice, moist mucus membranes Neck: normal inspection, full range of motion, supple, supple/symm/no masses Respiratory: normal inspection, chest non-tender - L chest PPM site c/d/i, no erythema/warmth/tenderness, lungs clear, decreased breath sounds - at bilateral bases, wheezing - mild end expiratory wheezing bilaterally, chest symmetrical, palpation of chest normal Cardiovascular #1: normal peripheral pulses, regular rate, rhythm, edema - 2+B/ L LE edema Cardiovascular #2: 2+ radial (R), 2+ radial (L) Gastrointestinal: normal inspection, non tender, soft, no mass, no guarding, no rebound Rectal: deferred Genitourinary: normal inspection, no CVA tenderness Musculoskeletal: back normal, gait/station normal, normal range of motion, non- tender, no calf tenderness, Italo's Sign negative Neurologic: alert, responsive, 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 She feels better after 3x nebs, and was given IV solumedrol also. Wheezing improved on re-eval. CXR c/w fluid overload, patient diuresing well, will admit for further treatment , but pro-BNP only slightly elevated. Patient afebrile, normal WBC, suspect COPD as primary pathology. EKG Diagnostic Results EKG Time: 15:57 EP Interpretation: no st-t changes, no TWI's Rate: normal, tachycardiac Rhythm: other - Atrial paced ST Segments: no acute changes ASA given to the pt in ED: Yes Rhythm Strip Diag. Results Rhythm Strip Time: 16:00 EP Interpretation: yes Rate: 60 Rhythm: NSR, no PVC's, no ectopy Chest X-Ray Diagnostic Results Chest X-Ray Diagnostic Results : Chest X-Ray Ordered: Yes # of Views/Limited/Complete: 1 View Indication: Shortness of Breath EP Interpretation: Yes Interpretation: no effusion, no pneumothorax, no acute cardiopulmonary disease - cardiomegaly Impression: Other - pulm vasc congestion with effusions, c/w fluid overload Electronically Signed by: Rima iSegel MD Last Vital Signs Date Time Temp Pulse Resp B/P (MAP) Pulse Ox O2 Delivery O2 Flow Rate FiO2 05/16/18 15:47 98.2 22 156/52 97 Room Air 98.2 05/16/18 15:37 60 Disposition: ADMITTED INPATIENT Admit Decision Time: 16:56 Condition: Stable Signed Out To: RIMA Houston M.D May 16, 2018 16:01
[2018-05-16] MEDS ORDERED: Aspirin Baby 81mg ORAL ONE (16:15)
[2018-05-16] MEDS: Albuterol/Ipratropium 3ml neb HHN SCH ×3 (16:25→16:45)
[2018-05-16 16:28] LABS: BASOPHILS % (AUTO) 1.2 % (0.0-2.0); EOSINOPHILS % (AUTO) 2.1 % (0.0-3.0); HEMATOCRIT 41.7 % (37.0-47.0); HEMOGLOBIN 12.7 G/DL (12.0-16.0); LYMPHOCYTES % (AUTO) 23.2 % (20.0-45.0); MEAN CORPUSCULAR VOLUME 75 FL (80-99); MONOCYTES % (AUTO) 10.1 % (1.0-10.0); NEUTROPHILS % (AUTO) 63.4 % (45.0-75.0); PLATELET COUNT 196 K/UL (150-450); RED BLOOD COUNT 5.59 M/UL (4.20-5.40); RED CELL DISTRIBUTION WIDTH 12.3 % (11.6-14.8); WHITE BLOOD COUNT 5.6 K/UL (4.8-10.8)
[2018-05-16 16:46] LABS: ANION GAP 10 mmol/L (5-15); BLOOD UREA NITROGEN 28 mg/dL (7-18); CALCIUM 10.4 MG/DL (8.5-10.1); CARBON DIOXIDE 24 MMOL/L (21-32); CHLORIDE 104 MMOL/L (98-107); CREATININE 1.4 MG/DL (0.55-1.30); POTASSIUM 4.9 MMOL/L (3.5-5.1); SODIUM 137 MMOL/L (136-145)
[2018-05-16 16:59] LABS: ALANINE AMINOTRANSFERASE 23 U/L (12-78); ALBUMIN/GLOBULIN RATIO 0.7 (1.0-2.7); ALKALINE PHOSPHATASE 91 U/L (46-116); ASPARTATE AMINO TRANSFERASE 17 U/L (15-37); BILIRUBIN,TOTAL 0.2 MG/DL (0.2-1.0)
[2018-05-16 17:30] VITALS: BP 155/71
[2018-05-16] MEDS ORDERED: Solu-MEDROL 125mg Inj IVP ONE (17:30)
[2018-05-16 17:54] LABS: APPEARANCE,URINE CLEAR; BILIRUBIN, URINE NEGATIVE (NEGATIVE); COLOR,URINE PALE YELLOW; GLUCOSE, URINE (UA) NEGATIVE (NEGATIVE); KETONES,URINE NEGATIVE (NEGATIVE); LEUKOCYTE ESTERASE ,URINE NEGATIVE (NEGATIVE); NITRITE,URINE NEGATIVE (NEGATIVE); PH,URINE 6 (4.5-8.0); PROTEIN,URINE NEGATIVE (NEGATIVE); UROBILINOGEN,URINE NORMAL MG/DL (0.0-1.0)
[2018-05-16] MEDS ORDERED: Albuterol/Ipratropium 3ml neb HHN PRN (21:45)
[2018-05-16] MEDS ORDERED: Tobramycin Op Soln 0.3% 5ml LEFT EYE SCH (21:45)
[2018-05-16] MEDS: Levofloxacin 250mg/D5W 50ml IVPB SCH (22:42)
[2018-05-17] VITALS: BP 184/86
[2018-05-17] MEDS: Labetalol 200mg tab ORAL SCH ×3 (01:04→21:09)
[2018-05-17 04:00] VITALS: BP 113/68
[2018-05-17] MEDS: NovoLOG Insulin Flexpen SUBQ SCH ×4 (06:01→21:03)
[2018-05-17 08:00] VITALS: BP 144/55
[2018-05-17] MEDS: Aspirin EC 81mg tab ORAL SCH (08:37)
[2018-05-17] MEDS: Irbesartan 150mg tablet ORAL SCH (08:43)
[2018-05-17] MEDS: Heparin 5000 units/ml inj SUBQ SCH ×2 (08:45→20:55)
[2018-05-17] MEDS ORDERED: Carvedilol 12.5mg tab ORAL SCH (09:00)
[2018-05-17] MEDS ORDERED: D5W 275ml ONE (09:37)
[2018-05-17] MEDS ORDERED: Tubing IV Secondary IV ONE (09:37)
--- NOTE | 2018-05-17 10:30 | History and Physical Report ---
DATE OF ADMISSION: 05/16/2018 CHIEF COMPLAINT: Shortness of breath. HISTORY OF PRESENT ILLNESS: This is an 82-year-old female, who lives in an assisted living. The patient has presented to the hospital with shortness of breath, which been developing over the last several days. The patient has multiple medical problems as listed below. I have been trying to get the patient to my office, but due to transportation issues it has been very difficult. PAST MEDICAL HISTORY: 1. Morbid obesity. 2. Type 2 diabetes mellitus. 3 Diabetic Retinopathy. 4. Status post pacemaker. 5. COPD. 6. Recurrent syncopal episodes. 7. Hypertensive cardiovascular disease. HOME MEDICATIONS: Baby aspirin, Coreg, Lasix, potassium chloride, tobramycin eye drops, and valsartan. ALLERGIES: Azithromycin. FAMILY HISTORY: Unremarkable. SOCIAL HISTORY: She is nonsmoker and nondrinker. There is no history of illicit drug abuse. REVIEW OF SYSTEMS: HEENT: Hearing normal. Eyesight, she is blind. RESPIRATORY: She has dyspnea from COPD and congestive heart failure. CARDIOVASCULAR: She denies chest pain or palpitations. GASTROINTESTINAL: No history of hematochezia, melena, hematemesis, diarrhea, or constipation. GENITOURINARY: She has dysuria. NEUROLOGIC: No history of stroke, syncope, or Parkinson disease. PHYSICAL EXAMINATION: GENERAL: This is an elderly female, who is in no acute distress. VITAL SIGNS: Blood pressure 113/68, pulse 67 and regular, respirations 18, and temperature 97.5. HEENT: The head is normocephalic and atraumatic. She is blind. NECK: Supple. Trachea midline. There was no lymphadenopathy or thyromegaly. LUNGS: Bilateral wheezes. HEART: Regular rate and rhythm without rubs, murmurs, or gallops. ABDOMEN: Soft and nontender. Bowel sounds were active. EXTREMITIES: No clubbing, cyanosis, or edema. NEUROLOGIC: She is alert and oriented x4. Cranial nerves II through XII intact. LABORATORY AND ANCILLARY DATA: CBC within normal limits. Chemistry, BUN 28 and creatinine 1.4. Troponin level is 0. Imaging reports, chest x-ray reported by ER physician is showing no acute disease. EKG, tachycardia, atrial paced, no signs of ischemia. ASSESSMENT: 1. COPD exacerbation. 2. Morbid obesity. 3. Type 2 diabetes mellitus. 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 5. Status post pacemaker. 6. Recurrent syncopal episodes. 7. Hypertensive cardiovascular disease. PLAN: 1. Continue home medications. 2. Intensive respiratory treatment. 3. IV antibiotics. Abbey Lozano M.D. DR: ROSALIE JOB#: [id number] CC: SANDY
--- NOTE | 2018-05-17 11:10 | Consultation ---
History of Present Illness General Date patient seen: May 17, 2018 Chief Complaint: Dyspnea/Respdistress Present Illness HPI 82-year-old female, who lives in an assisted living. The patient has presented to the hospital with shortness of breath, which been developing over the last several days.the pt is well known to this physician the pt was confused and anxious Allergies: Coded Allergies: AZITHROMYCIN (Verified Allergy, Intermediate, ITCHINESS, 10/15/13) QUESTIONABLE ALLERGIC RXN BUT PT STARTED ITCHING AFTER BEING GIVEN A DOSE BUT PT NOT SURE Medication History Scheduled Aspirin Ec* (Aspirin Ec*), 81 MG ORAL DAILY Carvedilol (Coreg), 12.5 MG ORAL EVERY 12 HOURS, (Reported) Furosemide* (Lasix*), 20 MG ORAL DAILY Potassium Chloride* (K-Dur*), 20 MEQ ORAL DAILY Tobramycin Sulf (Tobramycin), 1 DROP LEFT EYE Q4H Valsartan (Diovan), 320 MG ORAL DAILY, (Reported) Discontinued Medications Insulin Aspart (Novolog Flexpen), 10 UNITS SUBQ BEFORE MEALS AND HS Discontinued Reason: Medication dose changed Patient History Healthcare decision maker N Resuscitation status Full Code Advanced Directive on File No Past Medical/Surgical History Past Medical/Surgical History: (1) DM circ dis type I (2) Generalized osteoarthrosis (3) Upper respiratory infection (4) Upper respiratory infection (5) COPD (chronic obstructive pulmonary disease) (6) Urinary tract infection (7) Abdominal pain, right upper quadrant (8) Back injury (9) Back pain (10) Diabetes (11) Dyspnea (12) Dyspnea (13) Sarcoid (14) Bronchitis (15) Pneumonia (16) HTN (hypertension) (17) Pacemaker (18) ACS (acute coronary syndrome) (19) Asthma attack (20) Acute exacerbation of chronic obstructive pulmonary disease (21) DM (diabetes mellitus), type 1 uncontrolled with peripheral vascular complication (22) History of CHF (congestive heart failure) (23) Knee contusion (24) Asthma exacerbation (25) [id number] (26) CHF (congestive heart failure) (27) Shortness of breath dyspnea Review of Systems Psychiatric: Reports: prior hx, anxiety, depressed feelings, emotional problems Physical Exam General Appearance: no apparent distress, alert, confused Last 24 Hour Vital Signs Date Time Temp Pulse Resp B/P (MAP) Pulse Ox O2 Delivery O2 Flow Rate FiO2 7/2/18 08:43 166/58 05/17/18 08:42 65 166/58 05/17/18 08:00 65 05/17/18 04:00 65 05/17/18 04:00 97.5 67 18 113/68 96 Room Air 97.5 05/17/18 01:04 67 184/67 05/17/18 00:00 97.9 62 22 184/86 97 Room Air 97.9 05/17/18 00:00 62 05/16/18 21:14 62 05/16/18 20:00 98.0 60 16 155/71 99 Room Air 21 98.0 05/16/18 17:30 98.0 60 16 155/71 99 Room Air 98.0 05/16/18 16:57 60 20 99 Room Air 21 05/16/18 16:46 60 14 100 Room Air 21 05/16/18 16:44 60 14 100 Room Air 21 05/16/18 16:35 60 18 100 Room Air 21 05/16/18 16:34 60 18 100 Room Air 21 05/16/18 16:27 60 18 Room Air 21 05/16/18 16:25 60 18 98 Room Air 21 05/16/18 15:52 60 22 Room Air 05/16/18 15:47 98.2 22 156/52 97 Room Air 98.2 05/16/18 15:37 98.2 60 22 156/52 97 Room Air 98.2 Intake and Output 05/16/18 05/17/18 19:00 07:00 Intake Total 250 ml Output Total 50 ml 1100 ml Balance -50 ml -850 ml Intake Oral 200 ml IV Total 50 ml Output Urine Total 50 ml 1100 ml # Voids 1 # Bowel Movements 1 Laboratory Tests Test 05/16/18 16:00 05/16/18 17:40 White Blood Count 5.6 K/UL (4.8-10.8) Red Blood Count 5.59 M/UL (4.20-5.40) H Hemoglobin 12.7 G/DL (12.0-16.0) Hematocrit 41.7 % (37.0-47.0) Mean Corpuscular Volume 75 FL (80-99) L Mean Corpuscular Hemoglobin 22.6 PG (27.0-31.0) L Mean Corpuscular Hemoglobin Concent 30.4 G/DL (32.0-36.0) L Red Cell Distribution Width 12.3 % (11.6-14.8) Platelet Count 196 K/UL (150-450) Mean Platelet Volume 7.1 FL (6.5-10.1) Neutrophils (%) (Auto) 63.4 % (45.0-75.0) Lymphocytes (%) (Auto) 23.2 % (20.0-45.0) Monocytes (%) (Auto) 10.1 % (1.0-10.0) H Eosinophils (%) (Auto) 2.1 % (0.0-3.0) Basophils (%) (Auto) 1.2 % (0.0-2.0) Sodium Level 137 MMOL/L (136-145) Potassium Level 4.9 MMOL/L (3.5-5.1) Chloride Level 104 MMOL/L (98-107) Carbon Dioxide Level 24 MMOL/L (21-32) Anion Gap 10 mmol/L (5-15) Blood Urea Nitrogen 28 mg/dL (7-18) H Creatinine 1.4 MG/DL (0.55-1.30) H Estimat Glomerular Filtration Rate mL/min (>60) Glucose Level 174 MG/DL (74-106) H Calcium Level 10.4 MG/DL (8.5-10.1) H Total Bilirubin 0.2 MG/DL (0.2-1.0) Aspartate Amino Transf (AST/SGOT) 17 U/L (15-37) Alanine Aminotransferase (ALT/SGPT) 23 U/L (12-78) Alkaline Phosphatase 91 U/L (46-116) Troponin I 0.000 ng/mL (0.000-0.056) Pro-B-Type Natriuretic Peptide 162 pg/mL (0-125) H Total Protein 7.4 G/DL (6.4-8.2) Albumin 3.0 G/DL (3.4-5.0) L Globulin 4.4 g/dL Albumin/Globulin Ratio 0.7 (1.0-2.7) L Urine Color Pale yellow Urine Appearance Clear Urine pH 6 (4.5-8.0) Urine Specific [place] 1.010 (1.005-1.035) Urine Protein Negative (NEGATIVE) Urine Glucose (UA) Negative (NEGATIVE) Urine Ketones Negative (NEGATIVE) Urine Occult Blood Negative (NEGATIVE) Urine Nitrite Negative (NEGATIVE) Urine Bilirubin Negative (NEGATIVE) Urine Urobilinogen Normal MG/DL (0.0-1.0) Urine Leukocyte Esterase Negative (NEGATIVE) Height (Feet): 5 Height (Inches): 10.00 Weight (Pounds): 307 Medications Current Medications Medications (Trade) Dose Ordered Sig/Haider Route PRN Reason Start Time Stop Time Status Last Admin Dose Admin Albuterol/ Ipratropium (Albuterol/ Ipratropium) 3 ml Q6H PRN HHN Shortness of Breath 05/16/18 21:45 05/21/18 21:44 Aspirin (Ecotrin) 81 mg DAILY ORAL 05/17/18 09:00 06/16/18 08:59 05/17/18 08:37 Dextrose (Dextrose 50%) 25 ml STAT PRN IV Hypoglycemia 05/16/18 21:45 06/15/18 21:44 Dextrose (Dextrose 50%) 50 ml STAT PRN IV Hypoglycemia 05/16/18 21:45 06/15/18 21:44 Furosemide (Lasix) 20 mg DAILY ORAL 05/17/18 09:00 06/16/18 08:59 05/17/18 08:43 Heparin Sodium (Porcine) (Heparin 5000 units/ml) 5,000 units EVERY 12 HOURS SUBQ 05/17/18 09:00 06/16/18 08:59 05/17/18 08:45 Insulin Aspart (NovoLOG) BEFORE MEALS AND HS SUBQ 05/17/18 06:30 06/16/18 06:29 05/17/18 06:01 Irbesartan (Avapro) 300 mg DAILY ORAL 05/17/18 09:00 06/16/18 08:59 05/17/18 08:43 Labetalol HCl (Normodyne) 300 mg Q12HR ORAL 05/17/18 01:00 06/16/18 00:59 05/17/18 08:42 Levofloxacin 50 ml @ 50 mls/hr Q24H IVPB 05/16/18 23:00 05/23/18 22:59 05/16/18 22:42 Potassium Chloride (K-Dur) 20 meq DAILY ORAL 05/17/18 09:00 06/16/18 08:59 7/2/18 08:43 Assessment/Plan Assessment/Plan Anxiety d/o mdd dementia cont current meds provided ro/Sonny Orona MD May 17, 2018 11:10
--- NOTE | 2018-05-17 11:51 | Diagnostic Imaging Report ---
Indication: Dyspnea Comparison: 03/01/2018 A single view chest radiograph was obtained. Findings: Heart is enlarged. Pulmonary vascularity is mildly prominent. Pacemaker noted. IMPRESSION: No acute findings
[2018-05-17 12:00] VITALS: BP 143/54
[2018-05-17 16:00] VITALS: BP 154/77
[2018-05-17 20:00] VITALS: BP 154/55
[2018-05-17] MEDS: Levofloxacin 250mg/D5W 50ml IVPB SCH (23:32)
[2018-05-18] VITALS: BP 130/54
[2018-05-18 04:00] VITALS: BP 134/51
[2018-05-18] MEDS: NovoLOG Insulin Flexpen SUBQ SCH ×4 (06:12→20:39)
[2018-05-18 08:00] VITALS: BP 153/63
[2018-05-18] MEDS: Aspirin EC 81mg tab ORAL SCH (08:11)
[2018-05-18] MEDS: Irbesartan 150mg tablet ORAL SCH (08:12)
[2018-05-18] MEDS: Labetalol 200mg tab ORAL SCH ×2 (08:13→20:41)
[2018-05-18] MEDS: Heparin 5000 units/ml inj SUBQ SCH ×2 (08:15→20:38)
[2018-05-18 12:00] VITALS: BP 134/51
[2018-05-18 15:51] VITALS: BP 132/70
--- NOTE | 2018-05-18 16:06 | General Progress Note ---
Assessment/Plan Assessment/Plan COPD exacerbation - bronchodilators, IV Abx Subjective Allergies: Coded Allergies: AZITHROMYCIN (Verified Allergy, Intermediate, ITCHINESS, 10/15/13) QUESTIONABLE ALLERGIC RXN BUT PT STARTED ITCHING AFTER BEING GIVEN A DOSE BUT PT NOT SURE Subjective Still SOB Objective Last 24 Hour Vital Signs Date Time Temp Pulse Resp B/P (MAP) Pulse Ox O2 Delivery O2 Flow Rate FiO2 05/18/18 15:51 97.9 72 18 132/70 99 Room Air 97.9 05/18/18 12:00 97.8 62 20 134/51 96 Room Air 97.8 05/18/18 12:00 60 05/18/18 08:13 60 143/70 05/18/18 08:12 143/70 05/18/18 08:00 98.8 68 20 153/63 96 Room Air 98.8 05/18/18 08:00 60 05/18/18 04:00 97.8 62 20 134/51 96 Room Air 97.8 05/18/18 04:00 72 05/18/18 00:00 97.8 58 20 130/54 96 Room Air 97.8 05/18/18 00:00 60 05/17/18 21:09 66 151/77 05/17/18 20:00 60 05/17/18 20:00 98.2 61 20 154/55 95 Room Air 98.2 Intake and Output 05/17/18 05/18/18 19:00 07:00 Intake Total 720 ml 240 ml Balance 720 ml 240 ml Intake Oral 720 ml 240 ml # Voids 1 2 # Bowel Movements 1 1 Height (Feet): 5 Height (Inches): 10.00 Weight (Pounds): 308 Objective Cv Rr Lungs B wheezes Abd SNT. BS + E no CCE Abbey Lozano MD May 18, 2018 16:06
--- NOTE | 2018-05-18 16:36 | General Progress Note ---
Assessment/Plan Status Narrative Anxiety d/o mdd dementia cont current meds provided ro/st Subjective Date patient seen: May 18, 2018 Neurologic/Psychiatric: Reports: anxiety, depressed, emotional problems Allergies: Coded Allergies: AZITHROMYCIN (Verified Allergy, Intermediate, ITCHINESS, 10/15/13) QUESTIONABLE ALLERGIC RXN BUT PT STARTED ITCHING AFTER BEING GIVEN A DOSE BUT PT NOT SURE Objective Last 24 Hour Vital Signs Date Time Temp Pulse Resp B/P (MAP) Pulse Ox O2 Delivery O2 Flow Rate FiO2 05/18/18 15:51 97.9 72 18 132/70 99 Room Air 97.9 05/18/18 12:00 97.8 62 20 134/51 96 Room Air 97.8 05/18/18 12:00 60 05/18/18 08:13 60 143/70 05/18/18 08:12 143/70 05/18/18 08:00 98.8 68 20 153/63 96 Room Air 98.8 05/18/18 08:00 60 05/18/18 04:00 97.8 62 20 134/51 96 Room Air 97.8 05/18/18 04:00 72 05/18/18 00:00 97.8 58 20 130/54 96 Room Air 97.8 05/18/18 00:00 60 05/17/18 21:09 66 151/77 05/17/18 20:00 60 05/17/18 20:00 98.2 61 20 154/55 95 Room Air 98.2 Intake and Output 05/17/18 05/18/18 19:00 07:00 Intake Total 720 ml 240 ml Balance 720 ml 240 ml Intake Oral 720 ml 240 ml # Voids 1 2 # Bowel Movements 1 1 Height (Feet): 5 Height (Inches): 10.00 Weight (Pounds): 308 General Appearance: no apparent distress, alert, confused Sonny Diaz MD May 18, 2018 16:36
[2018-05-18 20:00] VITALS: BP 130/40
[2018-05-18] MEDS: Levofloxacin 250mg/D5W 50ml IVPB SCH (23:33)
[2018-05-19] VITALS: BP 124/61
[2018-05-19] MEDS: NovoLOG Insulin Flexpen SUBQ SCH ×4 (06:08→21:28)
[2018-05-19 08:00] VITALS: BP 131/69
[2018-05-19] MEDS: Heparin 5000 units/ml inj SUBQ SCH ×2 (08:38→21:20)
[2018-05-19] MEDS: Aspirin EC 81mg tab ORAL SCH (08:40)
[2018-05-19] MEDS: Irbesartan 150mg tablet ORAL SCH (08:40)
[2018-05-19] MEDS: Labetalol 200mg tab ORAL SCH ×2 (08:41→21:19)
[2018-05-19 09:07] LABS: BASOPHILS % (AUTO) 1.4 % (0.0-2.0); EOSINOPHILS % (AUTO) 3.4 % (0.0-3.0); HEMATOCRIT 42.1 % (37.0-47.0); HEMOGLOBIN 12.7 G/DL (12.0-16.0); LYMPHOCYTES % (AUTO) 31.3 % (20.0-45.0); MEAN CORPUSCULAR VOLUME 76 FL (80-99); MONOCYTES % (AUTO) 9.4 % (1.0-10.0); NEUTROPHILS % (AUTO) 54.5 % (45.0-75.0); PLATELET COUNT 207 K/UL (150-450); RED BLOOD COUNT 5.51 M/UL (4.20-5.40); RED CELL DISTRIBUTION WIDTH 12.4 % (11.6-14.8); WHITE BLOOD COUNT 6.4 K/UL (4.8-10.8)
[2018-05-19 09:34] LABS: ANION GAP 7 mmol/L (5-15); BLOOD UREA NITROGEN 39 mg/dL (7-18); CALCIUM 9.7 MG/DL (8.5-10.1); CARBON DIOXIDE 26 MMOL/L (21-32); CHLORIDE 104 MMOL/L (98-107); CREATININE 1.4 MG/DL (0.55-1.30); POTASSIUM 4.5 MMOL/L (3.5-5.1); SODIUM 137 MMOL/L (136-145)
--- NOTE | 2018-05-19 11:42 | General Progress Note ---
Assessment/Plan Assessment/Plan COPD exacerbation - bronchodilators, IV Abx Subjective Allergies: Coded Allergies: AZITHROMYCIN (Verified Allergy, Intermediate, ITCHINESS, 10/15/13) QUESTIONABLE ALLERGIC RXN BUT PT STARTED ITCHING AFTER BEING GIVEN A DOSE BUT PT NOT SURE Subjective Still SOB Objective Last 24 Hour Vital Signs Date Time Temp Pulse Resp B/P (MAP) Pulse Ox O2 Delivery O2 Flow Rate FiO2 05/19/18 08:41 61 131/69 05/19/18 08:40 131/69 05/19/18 08:00 60 05/19/18 08:00 97.9 61 18 131/69 99 Nasal Cannula 2.0 97.9 05/19/18 04:00 60 05/19/18 00:00 97.7 61 20 124/61 98 Nasal Cannula 2.0 97.7 05/19/18 00:00 60 05/18/18 20:41 61 130/40 05/18/18 20:00 60 05/18/18 20:00 97.3 61 20 130/40 96 Room Air 97.3 05/18/18 16:00 64 05/18/18 15:51 97.9 72 18 132/70 99 Room Air 97.9 05/18/18 12:00 97.8 62 20 134/51 96 Room Air 97.8 05/18/18 12:00 60 Intake and Output 05/18/18 05/19/18 19:00 07:00 Intake Total 1000 ml Balance 1000 ml Other 1000 ml # Voids 4 3 # Bowel Movements 1 Laboratory Tests 05/19/18 08:35: White Blood Count 6.4, Red Blood Count 5.51H, Hemoglobin 12.7, Hematocrit 42.1, Mean Corpuscular Volume 76L, Mean Corpuscular Hemoglobin 23.0L, Mean Corpuscular Hemoglobin Concent 30.1L, Red Cell Distribution Width 12.4, Platelet Count 207, Mean Platelet Volume 6.5, Neutrophils (%) (Auto) 54.5, Lymphocytes (%) (Auto) 31.3, Monocytes (%) (Auto) 9.4, Eosinophils (%) (Auto) 3.4H, Basophils (%) (Auto) 1.4, Sodium Level 137, Potassium Level 4.5, Chloride Level 104, Carbon Dioxide Level 26, Anion Gap 7, Blood Urea Nitrogen 39H, Creatinine 1.4H, Estimat Glomerular Filtration Rate , Glucose Level 208H, Calcium Level 9.7 Height (Feet): 5 Height (Inches): 10.00 Weight (Pounds): 308 Objective Cv Rr Lungs B wheezes Abd SNT. BS + E no CCE Abbey Lozano MD May 19, 2018 11:42
[2018-05-19] MEDS ORDERED: Milk of Magnesia 30ml Ud ORAL PRN (11:45)
[2018-05-19 12:00] VITALS: BP 117/64
[2018-05-19 16:00] VITALS: BP 147/49
[2018-05-19 20:00] VITALS: BP 148/66
[2018-05-19] MEDS: Levofloxacin 250mg/D5W 50ml IVPB SCH (23:27)
--- NOTE | 2018-05-19 23:47 | General Progress Note ---
Assessment/Plan Status: stable Assessment/Plan Anxiety d/o mdd dementia cont current meds provided ro/st Subjective Neurologic/Psychiatric: Reports: anxiety, depressed Allergies: Coded Allergies: AZITHROMYCIN (Verified Allergy, Intermediate, ITCHINESS, 10/15/13) QUESTIONABLE ALLERGIC RXN BUT PT STARTED ITCHING AFTER BEING GIVEN A DOSE BUT PT NOT SURE Objective Last 24 Hour Vital Signs Date Time Temp Pulse Resp B/P (MAP) Pulse Ox O2 Delivery O2 Flow Rate FiO2 05/19/18 21:19 60 148/66 05/19/18 20:00 60 05/19/18 20:00 97.5 60 17 148/66 95 Room Air 97.5 05/19/18 16:00 97.4 60 18 147/49 99 Nasal Cannula 2.0 97.4 05/19/18 16:00 60 05/19/18 12:00 97.2 61 18 117/64 97 Nasal Cannula 2.0 97.2 05/19/18 12:00 60 05/19/18 08:41 61 131/69 05/19/18 08:40 131/69 05/19/18 08:00 60 05/19/18 08:00 97.9 61 18 131/69 99 Nasal Cannula 2.0 97.9 05/19/18 04:00 60 05/19/18 00:00 97.7 61 20 124/61 98 Nasal Cannula 2.0 97.7 05/19/18 00:00 60 Intake and Output 05/18/18 05/19/18 19:00 07:00 Intake Total 1000 ml Balance 1000 ml Other 1000 ml # Voids 4 3 # Bowel Movements 1 Laboratory Tests 05/19/18 08:35: White Blood Count 6.4, Red Blood Count 5.51H, Hemoglobin 12.7, Hematocrit 42.1, Mean Corpuscular Volume 76L, Mean Corpuscular Hemoglobin 23.0L, Mean Corpuscular Hemoglobin Concent 30.1L, Red Cell Distribution Width 12.4, Platelet Count 207, Mean Platelet Volume 6.5, Neutrophils (%) (Auto) 54.5, Lymphocytes (%) (Auto) 31.3, Monocytes (%) (Auto) 9.4, Eosinophils (%) (Auto) 3.4H, Basophils (%) (Auto) 1.4, Sodium Level 137, Potassium Level 4.5, Chloride Level 104, Carbon Dioxide Level 26, Anion Gap 7, Blood Urea Nitrogen 39H, Creatinine 1.4H, Estimat Glomerular Filtration Rate , Glucose Level 208H, Calcium Level 9.7 Height (Feet): 5 Height (Inches): 10.00 Weight (Pounds): 308 General Appearance: no apparent distress, alert, confused Sonny Diaz MD May 19, 2018 23:47
[2018-05-20] VITALS: BP 130/80
[2018-05-20] MEDS: Acetaminophen 500mg (ES) tab ORAL PRN ×2 (00:28→21:41)
[2018-05-20 04:00] VITALS: BP 132/59
[2018-05-20] MEDS: NovoLOG Insulin Flexpen SUBQ SCH ×4 (05:57→21:00)
[2018-05-20 08:00] VITALS: BP 142/64
--- NOTE | 2018-05-20 08:49 | General Progress Note ---
Assessment/Plan Assessment/Plan COPD exacerbation - bronchodilators, IV Abx Subjective Allergies: Coded Allergies: AZITHROMYCIN (Verified Allergy, Intermediate, ITCHINESS, 10/15/13) QUESTIONABLE ALLERGIC RXN BUT PT STARTED ITCHING AFTER BEING GIVEN A DOSE BUT PT NOT SURE Subjective Still SOB Objective Last 24 Hour Vital Signs Date Time Temp Pulse Resp B/P (MAP) Pulse Ox O2 Delivery O2 Flow Rate FiO2 05/20/18 04:00 96.8 60 19 132/59 95 Nasal Cannula 2.0 96.8 05/20/18 04:00 60 05/20/18 00:00 60 05/20/18 00:00 97.7 60 19 130/80 96 Nasal Cannula 2.0 97.7 05/19/18 21:19 60 148/66 05/19/18 20:00 60 05/19/18 20:00 97.5 60 17 148/66 95 Room Air 97.5 05/19/18 16:00 97.4 60 18 147/49 99 Nasal Cannula 2.0 97.4 05/19/18 16:00 60 05/19/18 12:00 97.2 61 18 117/64 97 Nasal Cannula 2.0 97.2 05/19/18 12:00 60 Intake and Output 05/19/18 05/20/18 19:00 07:00 Intake Total 560 ml Output Total 600 ml Balance -40 ml Intake Oral 560 ml Output Urine Total 600 ml # Voids 2 3 # Bowel Movements 3 1 Height (Feet): 5 Height (Inches): 10.00 Weight (Pounds): 312 Objective Cv Rr Lungs B wheezes Abd SNT. BS + E no CCE Abbey Lozano MD May 20, 2018 08:49
[2018-05-20] MEDS: Labetalol 200mg tab ORAL SCH ×2 (09:17→21:34)
[2018-05-20] MEDS: Irbesartan 150mg tablet ORAL SCH (09:18)
[2018-05-20] MEDS: Aspirin EC 81mg tab ORAL SCH (09:18)
[2018-05-20] MEDS: Heparin 5000 units/ml inj SUBQ SCH ×2 (09:21→21:30)
[2018-05-20 12:00] VITALS: BP 141/57
[2018-05-20 16:00] VITALS: BP 146/77
[2018-05-20 20:00] VITALS: BP 158/62
[2018-05-21] VITALS: BP 141/54
--- NOTE | 2018-05-21 00:42 | Cardiology Report ---
APPROVED REPORT EKG Measurement Heart [id number] Atrial pacing Abnormal ECG
[2018-05-21 04:00] VITALS: BP 151/50
[2018-05-21] MEDS: NovoLOG Insulin Flexpen SUBQ SCH ×4 (05:46→20:49)
[2018-05-21] MEDS: Acetaminophen 500mg (ES) tab ORAL PRN ×2 (05:50→20:50)
--- NOTE | 2018-05-21 07:06 | General Progress Note ---
Assessment/Plan Assessment/Plan COPD exacerbation - bronchodilators, IV Abx Home condition unclear. Asked SW eval. Subjective Allergies: Coded Allergies: AZITHROMYCIN (Verified Allergy, Intermediate, ITCHINESS, 10/15/13) QUESTIONABLE ALLERGIC RXN BUT PT STARTED ITCHING AFTER BEING GIVEN A DOSE BUT PT NOT SURE Subjective Still SOB Objective Last 24 Hour Vital Signs Date Time Temp Pulse Resp B/P (MAP) Pulse Ox O2 Delivery O2 Flow Rate FiO2 05/21/18 04:00 98.2 60 20 151/50 97 Nasal Cannula 2.0 98.2 05/21/18 04:00 60 05/21/18 00:00 72 05/21/18 00:00 97.5 63 20 141/54 96 Nasal Cannula 2.0 97.5 05/20/18 21:34 62 158/62 05/20/18 20:00 60 05/20/18 20:00 97.6 62 20 158/62 96 Nasal Cannula 2.0 97.6 05/20/18 16:00 60 05/20/18 16:00 97.2 62 18 146/77 98 Nasal Cannula 2.0 97.2 05/20/18 12:00 60 05/20/18 12:00 97.0 60 20 141/57 100 Nasal Cannula 2.0 97.0 05/20/18 09:18 142/64 05/20/18 09:17 60 142/64 05/20/18 08:00 96.8 60 18 142/64 100 Nasal Cannula 2.0 96.8 05/20/18 08:00 60 Intake and Output 05/20/18 05/21/18 19:00 07:00 Intake Total 560 ml Output Total 600 ml 600 ml Balance -40 ml -600 ml Intake Oral 560 ml Output Urine Total 600 ml 600 ml Height (Feet): 5 Height (Inches): 10.00 Weight (Pounds): 308 Objective Cv Rr Lungs B wheezes Abd SNT. BS + E no CCE Abbey Lozano MD May 21, 2018 07:06
[2018-05-21 08:03] VITALS: BP 127/52
[2018-05-21] MEDS: Labetalol 200mg tab ORAL SCH ×2 (09:23→20:46)
[2018-05-21] MEDS: Irbesartan 150mg tablet ORAL SCH (09:25)
[2018-05-21] MEDS: Aspirin EC 81mg tab ORAL SCH (09:25)
[2018-05-21] MEDS: Heparin 5000 units/ml inj SUBQ SCH ×2 (09:36→20:49)
[2018-05-21 12:02] VITALS: BP 150/90
--- NOTE | 2018-05-21 13:13 | General Progress Note ---
Assessment/Plan Status: stable Assessment/Plan Anxiety d/o mdd dementia cont current meds provided ro/st Subjective Date patient seen: May 21, 2018 Neurologic/Psychiatric: Reports: anxiety, depressed, emotional problems Allergies: Coded Allergies: AZITHROMYCIN (Verified Allergy, Intermediate, ITCHINESS, 10/15/13) QUESTIONABLE ALLERGIC RXN BUT PT STARTED ITCHING AFTER BEING GIVEN A DOSE BUT PT NOT SURE Objective Last 24 Hour Vital Signs Date Time Temp Pulse Resp B/P (MAP) Pulse Ox O2 Delivery O2 Flow Rate FiO2 05/21/18 12:02 97.3 60 150/90 (110) 97.3 05/21/18 09:25 169/53 05/21/18 09:23 60 169/53 05/21/18 08:03 97.6 82 20 127/52 94 Nasal Cannula 2.0 97.6 05/21/18 08:00 60 05/21/18 04:00 98.2 60 20 151/50 97 Nasal Cannula 2.0 98.2 05/21/18 04:00 60 05/21/18 00:00 72 05/21/18 00:00 97.5 63 20 141/54 96 Nasal Cannula 2.0 97.5 05/20/18 21:34 62 158/62 05/20/18 20:00 60 05/20/18 20:00 97.6 62 20 158/62 96 Nasal Cannula 2.0 97.6 05/20/18 16:00 60 05/20/18 16:00 97.2 62 18 146/77 98 Nasal Cannula 2.0 97.2 Intake and Output 05/20/18 05/21/18 19:00 07:00 Intake Total 560 ml Output Total 600 ml 600 ml Balance -40 ml -600 ml Intake Oral 560 ml Output Urine Total 600 ml 600 ml Height (Feet): 5 Height (Inches): 10.00 Weight (Pounds): 308 General Appearance: no apparent distress, alert, confused Sonny Diaz MD May 21, 2018 13:13
[2018-05-21 16:00] VITALS: BP 147/52
[2018-05-21 20:00] VITALS: BP 165/57
[2018-05-22] VITALS: BP 140/74
[2018-05-22 04:00] VITALS: BP 155/61
[2018-05-22] MEDS: NovoLOG Insulin Flexpen SUBQ SCH ×4 (05:59→21:16)
[2018-05-22] MEDS: Acetaminophen 500mg (ES) tab ORAL PRN ×2 (06:01→12:09)
[2018-05-22 08:00] VITALS: BP 128/85
[2018-05-22] MEDS: Irbesartan 150mg tablet ORAL SCH (08:48)
[2018-05-22] MEDS: Labetalol 200mg tab ORAL SCH ×2 (08:49→21:13)
[2018-05-22] MEDS: Aspirin EC 81mg tab ORAL SCH (08:49)
[2018-05-22] MEDS: Heparin 5000 units/ml inj SUBQ SCH ×2 (08:51→21:15)
--- NOTE | 2018-05-22 09:03 | General Progress Note ---
Assessment/Plan Assessment/Plan COPD exacerbation - bronchodilators, IV Abx Home conditions now clarified with SW notes. Subjective Allergies: Coded Allergies: AZITHROMYCIN (Verified Allergy, Intermediate, ITCHINESS, 10/15/13) QUESTIONABLE ALLERGIC RXN BUT PT STARTED ITCHING AFTER BEING GIVEN A DOSE BUT PT NOT SURE Subjective Still SOB Objective Last 24 Hour Vital Signs Date Time Temp Pulse Resp B/P (MAP) Pulse Ox O2 Delivery O2 Flow Rate FiO2 05/22/18 08:49 62 128/85 05/22/18 08:48 128/85 05/22/18 08:00 97.9 62 19 128/85 (99) 97 97.9 05/22/18 04:00 60 05/22/18 04:00 97.7 61 20 155/61 (92) 97 97.7 05/22/18 00:00 98.1 61 18 140/74 (96) 95 98.1 05/22/18 00:00 60 05/21/18 21:00 Nasal Cannula 2.0 05/21/18 20:50 98.2 05/21/18 20:46 60 165/57 05/21/18 20:00 60 05/21/18 20:00 98.2 61 20 165/57 (93) 98.2 05/21/18 16:00 60 05/21/18 16:00 97.3 60 147/52 (83) 97.3 05/21/18 12:02 97.3 60 150/90 (110) 97.3 05/21/18 12:00 60 05/21/18 09:25 169/53 05/21/18 09:23 60 169/53 Intake and Output 05/21/18 05/22/18 19:00 07:00 Intake Total 240 ml 250 ml Balance 240 ml 250 ml Intake Oral 240 ml 250 ml # Voids 4 6 # Bowel Movements 1 Height (Feet): 5 Height (Inches): 10.00 Weight (Pounds): 308 Objective Cv Rr Lungs B wheezes Abd SNT. BS + E no CCE Abbey Lozano MD May 22, 2018 09:03
[2018-05-22 11:50] VITALS: BP 124/87
[2018-05-22 16:00] VITALS: BP 122/76
[2018-05-22 20:00] VITALS: BP 155/61
--- NOTE | 2018-05-22 23:21 | General Progress Note ---
Assessment/Plan Assessment/Plan Anxiety d/o mdd dementia cont current meds provided ro/st Subjective Date patient seen: May 22, 2018 Neurologic/Psychiatric: Reports: anxiety, depressed, emotional problems Allergies: Coded Allergies: AZITHROMYCIN (Verified Allergy, Intermediate, ITCHINESS, 10/15/13) QUESTIONABLE ALLERGIC RXN BUT PT STARTED ITCHING AFTER BEING GIVEN A DOSE BUT PT NOT SURE Objective Last 24 Hour Vital Signs Date Time Temp Pulse Resp B/P (MAP) Pulse Ox O2 Delivery O2 Flow Rate FiO2 05/22/18 23:18 99 Nasal Cannula 2.0 28 05/22/18 23:17 Nasal Cannula 2.0 28 05/22/18 21:13 61 155/61 05/22/18 20:00 97.3 61 20 155/61 (92) 100 97.3 05/22/18 20:00 60 05/22/18 16:00 60 05/22/18 16:00 98.1 71 20 122/76 (91) 100 98.1 05/22/18 13:08 98.1 05/22/18 12:09 98.1 05/22/18 12:00 96 05/22/18 11:50 98.1 71 19 124/87 (99) 95 98.1 05/22/18 09:00 Nasal Cannula 2.0 05/22/18 08:49 62 128/85 05/22/18 08:48 128/85 05/22/18 08:00 60 05/22/18 08:00 97.9 62 19 128/85 (99) 97 97.9 05/22/18 04:00 60 05/22/18 04:00 97.7 61 20 155/61 (92) 97 97.7 05/22/18 00:00 98.1 61 18 140/74 (96) 95 98.1 05/22/18 00:00 60 Intake and Output 05/21/18 05/22/18 19:00 07:00 Intake Total 240 ml 250 ml Balance 240 ml 250 ml Intake Oral 240 ml 250 ml # Voids 4 6 # Bowel Movements 1 Height (Feet): 5 Height (Inches): 10.00 Weight (Pounds): 308 Sonny Diaz MD May 22, 2018 23:21
[2018-05-23] VITALS: BP 158/61
[2018-05-23 04:00] VITALS: BP 153/55
[2018-05-23] MEDS: NovoLOG Insulin Flexpen SUBQ SCH ×4 (06:30→21:20)
[2018-05-23 08:00] VITALS: BP 154/70
[2018-05-23 08:12] LABS: BASOPHILS % (AUTO) 0.6 % (0.0-2.0); EOSINOPHILS % (AUTO) 4.2 % (0.0-3.0); HEMATOCRIT 39.4 % (37.0-47.0); HEMOGLOBIN 12.3 G/DL (12.0-16.0); LYMPHOCYTES % (AUTO) 27.1 % (20.0-45.0); MEAN CORPUSCULAR VOLUME 76 FL (80-99); MONOCYTES % (AUTO) 7.5 % (1.0-10.0); NEUTROPHILS % (AUTO) 60.6 % (45.0-75.0); PLATELET COUNT 191 K/UL (150-450); RED BLOOD COUNT 5.16 M/UL (4.20-5.40); RED CELL DISTRIBUTION WIDTH 12.6 % (11.6-14.8); WHITE BLOOD COUNT 6.8 K/UL (4.8-10.8)
[2018-05-23 08:19] LABS: ANION GAP 8 mmol/L (5-15); BLOOD UREA NITROGEN 29 mg/dL (7-18); CALCIUM 10.5 MG/DL (8.5-10.1); CARBON DIOXIDE 28 MMOL/L (21-32); CHLORIDE 104 MMOL/L (98-107); CREATININE 1.2 MG/DL (0.55-1.30); POTASSIUM 4.8 MMOL/L (3.5-5.1); SODIUM 140 MMOL/L (136-145)
[2018-05-23] MEDS: Aspirin EC 81mg tab ORAL SCH (09:50)
[2018-05-23] MEDS: Labetalol 200mg tab ORAL SCH ×2 (09:51→21:14)
[2018-05-23] MEDS: Irbesartan 150mg tablet ORAL SCH (09:52)
[2018-05-23] MEDS: Heparin 5000 units/ml inj SUBQ SCH ×2 (09:53→21:17)
[2018-05-23] MEDS: Acetaminophen 500mg (ES) tab ORAL PRN ×2 (10:04→21:13)
--- NOTE | 2018-05-23 11:25 | General Progress Note ---
Assessment/Plan Assessment/Plan COPD exacerbation - bronchodilators, IV Abx Home conditions now clarified with SW notes. Hope to DC tomorrow Subjective Allergies: Coded Allergies: AZITHROMYCIN (Verified Allergy, Intermediate, ITCHINESS, 10/15/13) QUESTIONABLE ALLERGIC RXN BUT PT STARTED ITCHING AFTER BEING GIVEN A DOSE BUT PT NOT SURE Subjective Less SOB Objective Last 24 Hour Vital Signs Date Time Temp Pulse Resp B/P (MAP) Pulse Ox O2 Delivery O2 Flow Rate FiO2 05/23/18 09:52 154/70 05/23/18 09:51 60 154/70 05/23/18 08:00 98.8 60 18 154/70 (98) 95 98.8 05/23/18 04:00 97.5 61 20 153/55 (87) 98 97.5 05/23/18 04:00 60 05/23/18 00:00 60 05/23/18 00:00 98.0 61 20 158/61 (93) 96 98.0 05/22/18 23:18 99 Nasal Cannula 2.0 28 05/22/18 23:17 Nasal Cannula 2.0 28 05/22/18 21:13 61 155/61 05/22/18 21:00 Room Air 05/22/18 20:00 97.3 61 20 155/61 (92) 100 97.3 05/22/18 20:00 60 05/22/18 16:00 60 05/22/18 16:00 98.1 71 20 122/76 (91) 100 98.1 05/22/18 13:08 98.1 05/22/18 12:09 98.1 05/22/18 12:00 96 05/22/18 11:50 98.1 71 19 124/87 (99) 95 98.1 Intake and Output 05/22/18 05/23/18 19:00 07:00 Intake Total 1060 ml Output Total 3200 ml Balance 1060 ml -3200 ml Intake Oral 1060 ml Output Urine Total 3200 ml # Voids 2 11 Laboratory Tests 05/23/18 07:10: White Blood Count 6.8, Red Blood Count 5.16, Hemoglobin 12.3, Hematocrit 39.4, Mean Corpuscular Volume 76L, Mean Corpuscular Hemoglobin 23.8L, Mean Corpuscular Hemoglobin Concent 31.2L, Red Cell Distribution Width 12.6, Platelet Count 191, Mean Platelet Volume 7.1, Neutrophils (%) (Auto) 60.6, Lymphocytes (%) (Auto) 27.1, Monocytes (%) (Auto) 7.5, Eosinophils (%) (Auto) 4.2H, Basophils (%) (Auto) 0.6, Sodium Level 140, Potassium Level 4.8, Chloride Level 104, Carbon Dioxide Level 28, Anion Gap 8, Blood Urea Nitrogen 29H, Creatinine 1.2, Estimat Glomerular Filtration Rate , Glucose Level 166H, Calcium Level 10.5H Height (Feet): 5 Height (Inches): 10.00 Weight (Pounds): 309 Objective Cv Rr Lungs B wheezes Abd SNT. BS + E no CCE Abbey Lozano MD May 23, 2018 11:25
[2018-05-23 12:00] VITALS: BP 142/98
[2018-05-23 16:00] VITALS: BP 146/59
[2018-05-23 20:00] VITALS: BP 136/65
[2018-05-24] VITALS: BP 140/60
[2018-05-24 04:00] VITALS: BP 137/59
[2018-05-24] MEDS: NovoLOG Insulin Flexpen SUBQ SCH ×3 (05:57→17:03)
[2018-05-24 08:00] VITALS: BP_SYST 139; BP_SYST 166; BP_DIAS 58; BP_DIAS 94
--- NOTE | 2018-05-24 09:23 | Physician Query ---
--------- THIS DOCUMENT IS A PERMANENT PART OF THE MEDICAL RECORD --------- PLEASE COMPLETE THE DOCUMENT BEFORE SIGNING Dear Dr. Lozano Date: 05/24/2018 [employer]/CDS Name: Nickolas Pedraza [employer] / CDS Phone # [phone] Exercise your independent professional judgment when responding to query. Question asked do not imply a particular answer is desired/expected Clinical Documentation States: Patient with multiple medical problems admitted with COPD. Clinical Findings Show: BUN: 39 -----> 28 (7-18), Creatinine: 1.4 -----> 1.2 Please Clarify the above findings: [] ARF w/ Tubular Necrosis [] ARF w/ Cortical Necrosis [] ARF w/ Medullary Necrosis [] Acute Renal Failure (unspecified) [X] Other: If Chronic, please specify the stage: [] CKD Stage 1 [] CKD Stage 2 [] CKD Stage 3 [] CKD Stage 4 [] CKD Stage 5 [] ESRD [X] Not applicable Condition Present on Admission: [] Yes [] No []Clinically Undeterminable Please also document in your Progress Notes and/or Discharge Summary and indicate if the condition was present on admission. SANDY
[2018-05-24] MEDS: Labetalol 200mg tab ORAL SCH (10:27)
[2018-05-24] MEDS: Aspirin EC 81mg tab ORAL SCH (10:27)
[2018-05-24] MEDS: Irbesartan 150mg tablet ORAL SCH (10:28)
[2018-05-24] MEDS: Heparin 5000 units/ml inj SUBQ SCH (10:31)
[2018-05-24 12:00] VITALS: BP 161/69
--- NOTE | 2018-05-24 14:06 | General Progress Note ---
Assessment/Plan Assessment/Plan COPD exacerbation - bronchodilators, IV Abx Home conditions now clarified with SW notes. DC Home Subjective Allergies: Coded Allergies: AZITHROMYCIN (Verified Allergy, Intermediate, ITCHINESS, 10/15/13) QUESTIONABLE ALLERGIC RXN BUT PT STARTED ITCHING AFTER BEING GIVEN A DOSE BUT PT NOT SURE Subjective Less SOB Objective Last 24 Hour Vital Signs Date Time Temp Pulse Resp B/P (MAP) Pulse Ox O2 Delivery O2 Flow Rate FiO2 05/24/18 12:00 97.5 60 20 161/69 (99) 98 97.5 05/24/18 10:28 166/58 05/24/18 10:27 66 166/58 05/24/18 09:00 Room Air 05/24/18 08:00 97.9 66 18 166/58 (94) 97 97.9 05/24/18 08:00 60 05/24/18 07:50 98 Nasal Cannula 2.0 28 05/24/18 07:50 Nasal Cannula 2.0 28 05/24/18 04:42 60 05/24/18 04:00 97.4 63 18 137/59 (85) 97 97.4 05/24/18 00:00 96.6 60 18 140/60 (86) 96 96.6 05/23/18 21:14 60 136/65 05/23/18 21:05 98 Nasal Cannula 2.0 28 05/23/18 21:05 Nasal Cannula 2.0 28 05/23/18 21:00 Room Air 05/23/18 20:12 60 05/23/18 20:00 97.3 60 18 136/65 (88) 95 97.3 05/23/18 16:00 97.6 71 17 146/59 (88) 98 97.6 05/23/18 16:00 60 Intake and Output 05/23/18 05/24/18 19:00 07:00 Intake Total 240 ml Output Total 1600 ml 800 ml Balance -1600 ml -560 ml Intake Oral 240 ml Output Urine Total 1600 ml 800 ml # Voids 4 4 Height (Feet): 5 Height (Inches): 10.00 Weight (Pounds): 308 Objective Cv Rr Lungs B wheezes Abd SNT. BS + E no CCE Abbey Lozano MD May 24, 2018 14:06
[2018-05-24] MEDS ORDERED: NORMODYNE200 MG ORAL (14:10)
[2018-05-24] MEDS ORDERED: POTASSIUM CHLO20 ME1 ORAL (14:10)
[2018-05-24] MEDS ORDERED: NOVOLOG100 UNITS1 SUBQ (14:10)
[2018-05-24] MEDS ORDERED: FUROSEMIDE20 M1 ORAL (14:10)
[2018-05-24] MEDS ORDERED: AVAPRO150 MG ORAL (14:10)
[2018-05-24] MEDS ORDERED: ACETAMINOPHEN500 MG ORAL (14:10)
[2018-05-24] MEDS ORDERED: ASPIRIN EC81 MG ORAL (14:10)
[2018-05-24] MEDS ORDERED: MYLANTA30 M1 ORAL (14:10)
[2018-05-24 16:07] VITALS: BP 115/50
--- NOTE | 2018-05-25 15:09 | Discharge Summary ---
Discharge Summary Discharge Summary _ DATE OF ADMISSION: 05/16/2018 DATE OF DISCHARGE: 05/24/2018 REASON FOR ADMISSION: 82 years old female with past medical history significant for hypertension, congestive heart failure, morbid obesity, pacemaker, COPD, hypertensive cardiovascular disease, diabetic retinopathy, presented to emergency department from the assisted living with progressively worsening shortness of breath for one week. Shortness of breath worse when she was supine. Patient reported cough with thick yellow mucus She reported noncompliance with diuretic during the last week. She denied fever ,chest pain ,syncope ,dizziness, leg pain. Laboratory workup revealed negative troponin, pro BNP 162 BUN 28 ,creatinine 1.4 EKG revealed A pacing , no acute ischemic changes No leukocytosis Patient admitted with diagnosis of COPD exacerbation, CHF, morbid obesity , diabetes mellitus type 2 ,diabetic retinopathy with blindness, pacemaker, recurrent syncope, renal insufficiency, hypertensive cardiovascular disease. CONSULTANTS: psychiatrist [facility]: Patient admitted to telemetry floor. Telemetry showed A pacing, no acute ischemic changes Supplemental oxygen provided as needed to keep pulse oximetry above 92% Pulmonary toilet with bronchodilators provided around the clock as and as needed. Patient started on empiric antibiotic. Antitussive provided as needed. Chest x-ray initially revealed evidence of pulmonary congestion . Patient was resumed on maintenance dose of Lasix, which she failed 't to take last week. Cardiorenal parameters and volumes were closely monitored. Nephrotoxins were avoided. Aspirin was continued. DVT prophylaxis provided. Blood pressure was managed with beta tita and angiotensin receptor tita and remained stable . Blood sugar was managed with sliding scale of insulin. Renal parameters and electrolytes were closely monitored. Electrolytes were corrected as needed. Nephrotoxins were avoided. Creatinine down to 1.2 from initial 1.4. Supportive care provided Bowel regimen instituted Psychiatrist seen and evaluated patient, diagnosed patient with major depressive disorder,anxiety ,dementia . Reality orientation and supportive therapy provided. Patient clinically improved and was stable for discharge back to assistive living with home health services. FINAL DIAGNOSES: COPD exacerbation congestive heart failure morbid obesity diabetes mellitus type 2 renal insufficiency diabetic retinopathy with blindness pacemaker recurrent syncope hypertensive cardiovascular disease major depressive disorder anxiety dementia DISCHARGE MEDICATIONS: See Medication Reconciliation list. DISCHARGE INSTRUCTIONS: Patient was discharged to assisted living with home health services. Follow-up with a primary care provider in one week. I have been assigned to dictate discharge summary for this account. I was not involved in the patient's management. Brigida Richards NP May 25, 2018 15:09
== END 2018-05-24 19:01 | disposition home health service (06) | DRG 192 ==
LOC: EMR 16:01 → EDBEDREQ 18:39 → 2E 19:19 → 4W 21:58 → 2E 22:02
DX: J44.1 Chronic obstructive pulmonary disease with (acute) exacerbation (principal); E66.01 Morbid (severe) obesity due to excess calories; E11.319 Type 2 diabetes mellitus with unspecified diabetic retinopathy without macular edema; I11.0 Hypertensive heart disease with heart failure; I50.9 Heart failure, unspecified; Z95.0 Presence of cardiac pacemaker; Z88.1 Allergy status to other antibiotic agents; H54.7 Unspecified visual loss; M15.9 Polyosteoarthritis, unspecified; F41.9 Anxiety disorder, unspecified; F32.9 Major depressive disorder, single episode, unspecified; E11.51 Type 2 diabetes mellitus with diabetic peripheral angiopathy without gangrene; F03.90 Unspecified dementia, unspecified severity, without behavioral disturbance, psychotic disturbance, mood disturbance, and anxiety
CPT/HCPCS: 36415; 71045; 80048; 80053; 81003; 82962; 83880; 84484; 85025; 93005; 94640; 94664; 94760; 99285; J1815; J7620; J8499

== ENCOUNTER 2018-07-25 15:14 | Inpatient (IN) | payer MEDICARE, MEDICAID ==
[~2018-07-25] VITALS: Ht 162.6 cm; Wt 136.1 kg
[~2018-07-25 15:14] MED LIST changes: +ACETAMINOPHEN500 MG ORAL; +AVAPRO150 MG ORAL; +MYLANTA30 M1 ORAL; +NORMODYNE200 MG ORAL
[2018-07-25 16:15] LABS: APPEARANCE,URINE CLEAR; BILIRUBIN, URINE NEGATIVE (NEGATIVE); COLOR,URINE PALE YELLOW; GLUCOSE, URINE (UA) NEGATIVE (NEGATIVE); KETONES,URINE NEGATIVE (NEGATIVE); LEUKOCYTE ESTERASE ,URINE NEGATIVE (NEGATIVE); NITRITE,URINE NEGATIVE (NEGATIVE); PH,URINE 5 (4.5-8.0); PROTEIN,URINE NEGATIVE (NEGATIVE); UROBILINOGEN,URINE NORMAL MG/DL (0.0-1.0)
[2018-07-25 16:30] LABS: EOSINOPHILS % (AUTO) 2.1 % (0.0-3.0); LYMPHOCYTES % (AUTO) 24.3 % (20.0-45.0); MEAN CORPUSCULAR VOLUME 76 FL (80-99); MONOCYTES % (AUTO) 8.3 % (1.0-10.0); NEUTROPHILS % (AUTO) 64.4 % (45.0-75.0); PLATELET COUNT 225 K/UL (150-450); RED BLOOD COUNT 5.52 M/UL (4.20-5.40); RED CELL DISTRIBUTION WIDTH 12.3 % (11.6-14.8); WHITE BLOOD COUNT 7.8 K/UL (4.8-10.8)
[2018-07-25 16:32] VITALS: BP 153/62
[2018-07-25 16:48] LABS: ANION GAP 6 mmol/L (5-15); BLOOD UREA NITROGEN 22 mg/dL (7-18); CALCIUM 10.9 MG/DL (8.5-10.1); CARBON DIOXIDE 27 MMOL/L (21-32); CHLORIDE 105 MMOL/L (98-107); CREATININE 1.1 MG/DL (0.55-1.30); SODIUM 138 MMOL/L (136-145)
[2018-07-25 17:00] LABS: ALANINE AMINOTRANSFERASE 22 U/L (12-78); ALBUMIN 3.3 G/DL (3.4-5.0); ALBUMIN/GLOBULIN RATIO 0.7 (1.0-2.7); ALKALINE PHOSPHATASE 105 U/L (46-116); ASPARTATE AMINO TRANSFERASE 22 U/L (15-37); BILIRUBIN,TOTAL 0.3 MG/DL (0.2-1.0); CKMB 0.5 NG/ML (0.0-3.6); CREATINE KINASE 89 U/L (26-308)
[2018-07-25] MEDS ORDERED: LANTUS SOL100 UNIT/1 SUBQ (17:01)
[2018-07-25] MEDS ORDERED: Milk of Magnesia 30ml Ud ORAL PRN (17:15)
[2018-07-25] MEDS ORDERED: Albuterol/Ipratropium 3ml neb HHN PRN (17:15)
[2018-07-25 17:53] VITALS: BP 128/64
--- NOTE | 2018-07-25 18:10 | Emergency Room Report ---
History of Present Illness General Chief Complaint: General Complaint Source: Patient Present Illness HPI Patient presents with several different complaints Patient reports that she has been more short of breath recently She had increased her Lasix without any relief Denies any chest pain with it denies any vomiting or diarrhea She also associates some lower abdominal discomfort Denies any fevers or chills patient reports increased cough Denies any pleurisy denies any neck pain or photophobia Allergies: Coded Allergies: AZITHROMYCIN (Verified Allergy, Intermediate, ITCHINESS, 10/15/13) QUESTIONABLE ALLERGIC RXN BUT PT STARTED ITCHING AFTER BEING GIVEN A DOSE BUT PT NOT SURE Patient History Past Medical History: see triage record Pertinent Family History: none Last Menstrual Period: na Reviewed Nursing Documentation: PMH: Agreed; PSxH: Agreed Nursing Documentation-PMH Past Medical History: No History, Except For Hx Cardiac Problems: Yes Hx Hypertension: Yes Hx Pacemaker: Yes Hx Asthma: Yes Hx COPD: Yes Hx Diabetes: Yes Hx Cancer: No Hx Gastrointestinal Problems: No Hx Neurological Problems: Yes - osteoarthritis Hx Tremors: Yes Hx Vertigo: Yes Hx Dizziness: Yes Hx Syncope: Yes Hx Headaches: Yes Hx Weakness: Yes Hx Fatigue: Yes Review of Systems All Other Systems: negative except mentioned in HPI Physical Exam Vital Signs Date Time Temp Pulse Resp B/P (MAP) Pulse Ox O2 Delivery O2 Flow Rate FiO2 07/25/18 15:22 98.0 61 20 149/73 97 Room Air 98.1 Sp02 EP Interpretation: reviewed, normal General Appearance: no apparent distress Head: normocephalic, atraumatic Eyes: bilateral eye other - Blind in both eyes ENT: hearing grossly normal, normal pharynx Neck: supple Respiratory: no respiratory distress, no retraction, crackles - Both lower lobes Cardiovascular #1: normal peripheral pulses, other - Significant edema bilaterally Gastrointestinal: non tender, soft Musculoskeletal: other - is morbidly obese with lymphedema bilaterally, limiting movement Neurologic: alert, oriented x3, responsive Skin: other - Lymphedema bilaterally Lymphatic: other Medical Decision Making Diagnostic Impression: Primary Impression: Shortness of breath dyspnea Additional Impression: Diabetes ER Course Patient is a fairly complex patient with multiple differential to consideration including but not limited to cardiac cardiopulmonary and vascular emergencies X-ray shows some atelectatic findings Patient's blood work is at baseline levels a she reports that she has difficulty ambulating Multiple other comorbidities at this time requiring further inpatient care and evaluation Labs Test 07/25/18 16:00 07/25/18 16:15 Urine Color Pale yellow Urine Appearance Clear Urine pH 5 (4.5-8.0) Urine Specific [place] 1.005 (1.005-1.035) Urine Protein Negative (NEGATIVE) Urine Glucose (UA) Negative (NEGATIVE) Urine Ketones Negative (NEGATIVE) Urine Blood Negative (NEGATIVE) Urine Nitrite Negative (NEGATIVE) Urine Bilirubin Negative (NEGATIVE) Urine Urobilinogen Normal MG/DL (0.0-1.0) Urine Leukocyte Esterase Negative (NEGATIVE) White Blood Count 7.8 K/UL (4.8-10.8) Red Blood Count 5.52 M/UL (4.20-5.40) Hemoglobin 13.0 G/DL (12.0-16.0) Hematocrit 42.0 % (37.0-47.0) Mean Corpuscular Volume 76 FL (80-99) Mean Corpuscular Hemoglobin 23.6 PG (27.0-31.0) Mean Corpuscular Hemoglobin Concent 31.1 G/DL (32.0-36.0) Red Cell Distribution Width 12.3 % (11.6-14.8) Platelet Count 225 K/UL (150-450) Mean Platelet Volume 6.8 FL (6.5-10.1) Neutrophils (%) (Auto) 64.4 % (45.0-75.0) Lymphocytes (%) (Auto) 24.3 % (20.0-45.0) Monocytes (%) (Auto) 8.3 % (1.0-10.0) Eosinophils (%) (Auto) 2.1 % (0.0-3.0) Basophils (%) (Auto) 1.0 % (0.0-2.0) Sodium Level 138 MMOL/L (136-145) Potassium Level 5.0 MMOL/L (3.5-5.1) Chloride Level 105 MMOL/L (98-107) Carbon Dioxide Level 27 MMOL/L (21-32) Anion Gap 6 mmol/L (5-15) Blood Urea Nitrogen 22 mg/dL (7-18) Creatinine 1.1 MG/DL (0.55-1.30) Estimat Glomerular Filtration Rate mL/min (>60) Glucose Level 102 MG/DL (74-106) Lactic Acid Level 2.00 mmol/L (0.4-2.0) Calcium Level 10.9 MG/DL (8.5-10.1) Total Bilirubin 0.3 MG/DL (0.2-1.0) Aspartate Amino Transf (AST/SGOT) 22 U/L (15-37) Alanine Aminotransferase (ALT/SGPT) 22 U/L (12-78) Alkaline Phosphatase 105 U/L (46-116) Total Creatine Kinase 89 U/L (26-308) Creatine Kinase MB 0.5 NG/ML (0.0-3.6) Creatine Kinase MB Relative Index 0.5 Troponin I 0.000 ng/mL (0.000-0.056) Pro-B-Type Natriuretic Peptide 276 pg/mL (0-125) Total Protein 7.8 G/DL (6.4-8.2) Albumin 3.3 G/DL (3.4-5.0) Globulin 4.5 g/dL Albumin/Globulin Ratio 0.7 (1.0-2.7) Lipase 130 U/L (73-393) EKG Diagnostic Results Rate: other Rhythm: other - paced ST Segments: no acute changes Rhythm Strip Diag. Results EP Interpretation: yes Rate: 60 Rhythm: NSR, no PVC's, no ectopy Chest X-Ray Diagnostic Results Chest X-Ray Diagnostic Results : Chest X-Ray Ordered: Yes # of Views/Limited/Complete: 1 View Indication: Chest Pain EP Interpretation: Yes Interpretation: no consolidation, no pneumothorax, other - Nonspecific bilateral atelectasis increased markings my right side, cardiomegaly Impression: Other - Bilateral atelectasis Electronically Signed by: Coleman Mcallister DO Last Vital Signs Date Time Temp Pulse Resp B/P (MAP) Pulse Ox O2 Delivery O2 Flow Rate FiO2 07/25/18 17:53 97.5 60 21 128/64 97 Room Air 97.5 Status: improved Disposition: ADMITTED INPATIENT Condition: Serious Referrals: NON PHYSICIAN (PCP) Coleman Mcallister DO Jul 25, 2018 18:10
[2018-07-25 18:30] VITALS: BP 142/76
[2018-07-25 20:00] VITALS: BP 125/74
[2018-07-25] MEDS: Docusate 100mg cap ORAL SCH (21:25)
[2018-07-25] MEDS: Heparin 5000 units/ml inj SUBQ SCH (21:26)
[2018-07-25] MEDS: NovoLOG Insulin Flexpen SUBQ SCH (21:28)
[2018-07-26] VITALS: BP 143/75
[2018-07-26 04:00] VITALS: BP 150/65
[2018-07-26] MEDS: NovoLOG Insulin Flexpen SUBQ SCH ×4 (06:19→20:57)
[2018-07-26 08:00] VITALS: BP 158/72
[2018-07-26] MEDS: Docusate 100mg cap ORAL SCH ×2 (08:19→20:52)
[2018-07-26] MEDS: Heparin 5000 units/ml inj SUBQ SCH ×2 (08:22→20:58)
--- NOTE | 2018-07-26 09:10 | Diagnostic Imaging Report ---
Indication: Chest pain Technique: One view of the chest Comparison: 05/16/2018 Findings: The heart is enlarged. Atelectasis or scarring is seen in the right perihilar region. There is bilateral pulmonary venous congestion which appears somewhat less severe than on the prior study. Left chest pacemaker remains Impression: Cardiomegaly. Pulmonary venous congestion, appearing less severe than on prior study 05/16/2018
[2018-07-26 12:00] VITALS: BP 161/69
[2018-07-26 15:28] VITALS: BP_SYST 121; BP_SYST 161; BP_DIAS 65; BP_DIAS 88
--- NOTE | 2018-07-26 16:18 | Consultation ---
History of Present Illness General Date patient seen: Jul 26, 2018 Chief Complaint: General Complaint Present Illness HPI 82 yo female with hx of dementia and anxiety d/o came in with short of breath recently. the pt endorses more anxiety and is forgetful/ the pt is a poor historian Allergies: Coded Allergies: AZITHROMYCIN (Verified Allergy, Intermediate, ITCHINESS, 10/15/13) QUESTIONABLE ALLERGIC RXN BUT PT STARTED ITCHING AFTER BEING GIVEN A DOSE BUT PT NOT SURE Medication History Scheduled Aspirin Ec* (Aspirin Ec*), 81 MG ORAL DAILY Furosemide* (Lasix*), 20 MG ORAL DAILY Irbesartan* (Avapro*), 300 MG ORAL DAILY Labetalol HCl (Labetalol HCl), 300 MG ORAL Q12HR Potassium Chloride* (K-Dur*), 20 MEQ ORAL DAILY Scheduled PRN Al Hydroxide/mg Hydroxide (Mag-Al Liquid), 30 ML ORAL Q6H PRN Discontinued Medications Acetaminophen* (Tylenol Extra Strength*), 500 MG ORAL Q6HR PRN Discontinued Reason: MD discontinued med Insulin Aspart (Novolog Flexpen), 0 UNITS SUBQ BEFORE MEALS AND HS Discontinued Reason: MD discontinued med Insulin Glargine (Lantus), 0 SUBQ BEDTIME, (Reported) Discontinued Reason: MD discontinued med Patient History Limited by: medical condition History Provided By: Patient, Medical Record, PMD Healthcare decision maker Resuscitation status Full Code Advanced Directive on File Past Medical/Surgical History Past Medical/Surgical History: (1) DM circ dis type I (2) Generalized osteoarthrosis (3) Upper respiratory infection (4) Upper respiratory infection (5) Urinary tract infection (6) Abdominal pain, right upper quadrant (7) Back injury (8) Back pain (9) Dyspnea (10) Dyspnea (11) Sarcoid (12) Bronchitis (13) Pneumonia (14) Pacemaker (15) Asthma attack (16) Acute exacerbation of chronic obstructive pulmonary disease (17) DM (diabetes mellitus), type 1 uncontrolled with peripheral vascular complication (18) History of CHF (congestive heart failure) (19) Knee contusion (20) Asthma exacerbation (21) [id number] (22) CHF (congestive heart failure) (23) HTN (hypertension) (24) Diabetes (25) Shortness of breath dyspnea (26) COPD (chronic obstructive pulmonary disease) (27) ACS (acute coronary syndrome) Review of Systems Psychiatric: Reports: prior hx, anxiety Physical Exam General Appearance: no apparent distress, alert Neurologic: depressed affect Last 24 Hour Vital Signs Date Time Temp Pulse Resp B/P (MAP) Pulse Ox O2 Delivery O2 Flow Rate FiO2 07/26/18 15:28 97.9 82 19 121/65 (83) 96 97.9 07/26/18 12:00 97.4 64 19 161/69 (99) 99 97.4 07/26/18 09:58 69 16 Nasal Cannula 2.0 28 07/26/18 08:00 Nasal Cannula 2.0 07/26/18 08:00 97.6 66 20 158/72 (100) 97 97.6 07/26/18 04:00 98.8 67 17 150/65 (93) 99 98.8 07/26/18 00:00 97.2 61 16 143/75 (97) 97 97.2 07/25/18 20:00 97.0 64 15 125/74 (91) 95 97.0 07/25/18 19:54 Room Air 07/25/18 18:30 97.7 60 18 142/76 (98) 97 97.7 07/25/18 18:20 97.5 60 21 128/64 97 Room Air 97.5 07/25/18 17:53 97.5 60 21 128/64 97 Room Air 97.5 07/25/18 16:32 60 18 153/62 98 Room Air Intake and Output 07/25/18 07/26/18 19:00 07:00 Intake Total 0 ml 200 ml Output Total 400 ml Balance 0 ml -200 ml Intake Oral 0 ml 200 ml Output Urine Total 400 ml # Voids 6 Laboratory Tests Test 07/25/18 16:15 07/25/18 20:15 White Blood Count 7.8 K/UL (4.8-10.8) Red Blood Count 5.52 M/UL (4.20-5.40) H Hemoglobin 13.0 G/DL (12.0-16.0) Hematocrit 42.0 % (37.0-47.0) Mean Corpuscular Volume 76 FL (80-99) L Mean Corpuscular Hemoglobin 23.6 PG (27.0-31.0) L Mean Corpuscular Hemoglobin Concent 31.1 G/DL (32.0-36.0) L Red Cell Distribution Width 12.3 % (11.6-14.8) Platelet Count 225 K/UL (150-450) Mean Platelet Volume 6.8 FL (6.5-10.1) Neutrophils (%) (Auto) 64.4 % (45.0-75.0) Lymphocytes (%) (Auto) 24.3 % (20.0-45.0) Monocytes (%) (Auto) 8.3 % (1.0-10.0) Eosinophils (%) (Auto) 2.1 % (0.0-3.0) Basophils (%) (Auto) 1.0 % (0.0-2.0) Sodium Level 138 MMOL/L (136-145) Potassium Level 5.0 MMOL/L (3.5-5.1) Chloride Level 105 MMOL/L (98-107) Carbon Dioxide Level 27 MMOL/L (21-32) Anion Gap 6 mmol/L (5-15) Blood Urea Nitrogen 22 mg/dL (7-18) H Creatinine 1.1 MG/DL (0.55-1.30) Estimat Glomerular Filtration Rate mL/min (>60) Glucose Level 102 MG/DL (74-106) Hemoglobin A1c 8.2 % (4.3-6.0) H Lactic Acid Level 2.00 mmol/L (0.4-2.0) 1.50 mmol/L (0.66-2.22) Calcium Level 10.9 MG/DL (8.5-10.1) H Total Bilirubin 0.3 MG/DL (0.2-1.0) Aspartate Amino Transf (AST/SGOT) 22 U/L (15-37) Alanine Aminotransferase (ALT/SGPT) 22 U/L (12-78) Alkaline Phosphatase 105 U/L (46-116) Total Creatine Kinase 89 U/L (26-308) Creatine Kinase MB 0.5 NG/ML (0.0-3.6) Creatine Kinase MB Relative Index 0.5 Troponin I 0.000 ng/mL (0.000-0.056) Pro-B-Type Natriuretic Peptide 276 pg/mL (0-125) H Total Protein 7.8 G/DL (6.4-8.2) Albumin 3.3 G/DL (3.4-5.0) L Globulin 4.5 g/dL Albumin/Globulin Ratio 0.7 (1.0-2.7) L Lipase 130 U/L (73-393) Height (Feet): 5 Height (Inches): 4.00 Weight (Pounds): 304 Medications Current Medications Medications (Trade) Dose Ordered Sig/Haider Route PRN Reason Start Time Stop Time Status Last Admin Dose Admin Acetaminophen (Tylenol) 650 mg Q4H PRN ORAL Mild Pain (Pain Scale 1-3) 07/25/18 17:15 08/24/18 17:14 07/26/18 15:52 Albuterol/ Ipratropium (Albuterol/ Ipratropium) 3 ml Q6H PRN HHN Shortness of Breath 07/25/18 17:15 07/30/18 17:14 Dextrose (Dextrose 50%) 25 ml STAT PRN IV Hypoglycemia 07/25/18 17:15 08/24/18 17:14 Dextrose (Dextrose 50%) 50 ml STAT PRN IV Hypoglycemia 07/25/18 17:15 08/24/18 17:14 Docusate Sodium (Colace) 100 mg EVERY 12 HOURS ORAL 07/25/18 21:00 08/24/18 20:59 07/26/18 08:19 Heparin Sodium (Porcine) (Heparin 5000 units/ml) 5,000 units EVERY 12 HOURS SUBQ 07/25/18 21:00 08/24/18 20:59 07/26/18 08:22 Insulin Aspart (NovoLOG) BEFORE MEALS AND HS SUBQ 07/25/18 21:00 08/24/18 20:59 07/26/18 06:19 Magnesium Hydroxide (Mom) 30 ml HSPRN PRN ORAL Constipation 07/25/18 17:15 08/24/18 17:14 07/26/18 15:55 Ondansetron HCl (Zofran) 4 mg Q6H PRN IVP Nausea & Vomiting 07/25/18 17:15 08/24/18 17:14 Pantoprazole (Protonix) 40 mg DAILY ORAL 07/26/18 09:00 08/25/18 08:59 07/26/18 08:19 Assessment/Plan Assessment/Plan Dementia Anxiety d/o Ativan prn Provided alyson/Sonny Orona MD Jul 26, 2018 16:18
[2018-07-26 20:00] VITALS: BP 170/71
--- NOTE | 2018-07-26 21:41 | Consultation ---
Consult Note Consult Note H&P dictated #[id number] Ervin Sifuentes MD Jul 26, 2018 21:41
[2018-07-26] MEDS: Lactulose 20gm/30ml UDC ORAL SCH (22:07)
[2018-07-27] VITALS: BP 182/78
[2018-07-27] MEDS: Lactulose 20gm/30ml UDC ORAL SCH
[2018-07-27] MEDS: Carvedilol 25mg Tab ORAL SCH ×3 (00:47→20:08)
--- NOTE | 2018-07-27 01:45 | History and Physical Report ---
DATE OF ADMISSION: 07/25/2018 REASON OF ADMISSION: Shortness of breath and high blood glucose. HISTORY OF PRESENT ILLNESS: This is a very pleasant 82-year-old female, patient of Dr. Abbey Lozano, that I am covering for, has been brought to the emergency room of [facility] apparently on 07/25/2018 with several different complaints. She is being short of breath and also having blood sugar in the range of 400s. However, on her blood work at the emergency room, blood sugar was in the range of 130s. She denies any chest pain, nausea, vomiting, or diarrhea. However, it was decided to be admitted. Now by the time I am seeing her, she is complaining of some diffuse abdominal pain. She has not had any bowel movements for the past 3 to 4 days apparently and she is having also some orthopnea. She is also on O2 at home according to her. PAST MEDICAL HISTORY: Significant for congestive heart failure, diastolic dysfunction of the heart, hypertension, status post pacemaker placement, COPD disease, type 2 diabetes mellitus, morbid obesity, vertigo, previous syncope, headaches, and fatigue. She also has had type 2 diabetes mellitus. MEDICATIONS: Maalox 30 mL p.o. q.6 h. p.r.n., aspirin 81 mg p.o. daily, furosemide 20 mg p.o. daily, irbesartan 150 mg p.o. daily, labetalol 300 mg p.o. q.12 h., and potassium chloride 20 mEq p.o. daily. SOCIAL HISTORY: Does not smoke or does not drink alcohol at this point. She is and has 7 children. REVIEW OF SYSTEMS: GENERAL: She is obese and no significant change recently. CARDIOVASCULAR: She has been having some orthopnea and some dyspnea with exertion. URINARY: No urinary foaminess, hematuria, or dysuria. NEUROLOGIC: Had some paresthesia in the lower extremities. MUSCULOSKELETAL: Denies any arthralgia or myalgia. GASTROINTESTINAL: She has abdominal pain. Some constipation. ENDOCRINE: Blood sugars have been elevated in the range of 400 at times according to her. LABORATORY DATA: Her hemoglobin A1c and INR was checked on 07/25/2018 showing a value of 8.2. PHYSICAL EXAMINATION: GENERAL: Does not seem to be in much acute distress. VITAL SIGNS: Blood pressure is 121/65, pulse of 82, respirations 19, and temperature 97.9. HEENT: Head is atraumatic. Eyes, pupils reactive to light. No evidence of papilledema. She has a O2 nasal cannula in place. NECK: Supple. Jugular venous distention is somewhat increased. HEART: Regular rhythm. No gallop. LUNGS: Decreased air excursion bilaterally. Few crackles. ABDOMEN: Supple. Bowel sounds positive. Diffusely tender. No rebound or guarding. EXTREMITIES: Shows 1+ to 2+ pedal edema. NEUROLOGICAL: Cranial nerves are intact. Deep tendon reflexes are symmetrically decreased in both lower extremities. LABORATORY DATA: Show WBC of 7.8, hemoglobin is 13, hematocrit 42, and platelets of 225,000. Sodium 138, potassium 5.0, chloride 105, carbon dioxide 27, BUN 22, and creatinine is 1.1. Calcium 10.1. Albumin 3.3. Urinalysis showed very benign urinary sediment. No rbc's or wbc's. No flank pain. IMPRESSION: 1. Evidence of some fluid overload/congestive heart failure. 2. Underlying chronic obstructive pulmonary disease. 3. Morbid obesity. 4. Type 2 diabetes mellitus. 5. Abdominal pain, most likely due to constipation. PLAN: She is admitted to the floor. We are going to give her a dose of diuretics. I am going to also give her some lactulose for constipation and we will check blood sugars and we go from there. Ervin Sifuentes M.D. DR: ANDRADE JOB#: [id number] CC:
[2018-07-27 04:00] VITALS: BP 132/70
[2018-07-27] MEDS: NovoLOG Insulin Flexpen SUBQ SCH ×4 (06:13→20:15)
[2018-07-27 06:48] LABS: BASOPHILS % (AUTO) 0.8 % (0.0-2.0); HEMATOCRIT 42.2 % (37.0-47.0); HEMOGLOBIN 12.7 G/DL (12.0-16.0); LYMPHOCYTES % (AUTO) 24.1 % (20.0-45.0); MEAN CORPUSCULAR VOLUME 76 FL (80-99); NEUTROPHILS % (AUTO) 63.2 % (45.0-75.0); PLATELET COUNT 194 K/UL (150-450); RED BLOOD COUNT 5.53 M/UL (4.20-5.40); WHITE BLOOD COUNT 5.3 K/UL (4.8-10.8)
[2018-07-27 07:03] LABS: ANION GAP 5 mmol/L (5-15); BLOOD UREA NITROGEN 20 mg/dL (7-18); CALCIUM 10.6 MG/DL (8.5-10.1); CARBON DIOXIDE 29 MMOL/L (21-32); CHLORIDE 103 MMOL/L (98-107); CREATININE 1.1 MG/DL (0.55-1.30); POTASSIUM 4.6 MMOL/L (3.5-5.1); SODIUM 137 MMOL/L (136-145)
[2018-07-27 08:00] VITALS: BP 177/74
[2018-07-27] MEDS: Heparin 5000 units/ml inj SUBQ SCH ×2 (08:02→20:09)
[2018-07-27] MEDS: Docusate 100mg cap ORAL SCH ×2 (08:03→20:15)
[2018-07-27 12:00] VITALS: BP 158/72
--- NOTE | 2018-07-27 17:01 | General Progress Note ---
Assessment/Plan Assessment/Plan 1) Acute exacerbation of diastolic CHF 2) Morbid obesity 3) COPD Plan: Will give lasix 40 mg IV X1 again Subjective Allergies: Coded Allergies: AZITHROMYCIN (Verified Allergy, Intermediate, ITCHINESS, 10/15/13) QUESTIONABLE ALLERGIC RXN BUT PT STARTED ITCHING AFTER BEING GIVEN A DOSE BUT PT NOT SURE Subjective She is feeling better, she has had good diuresis yesterday, less sob Objective Last 24 Hour Vital Signs Date Time Temp Pulse Resp B/P (MAP) Pulse Ox O2 Delivery O2 Flow Rate FiO2 07/27/18 12:00 97.9 62 18 158/72 (100) 96 97.9 07/27/18 09:59 72 16 Nasal Cannula 2.0 28 07/27/18 08:01 74 171/71 07/27/18 08:00 Nasal Cannula 2.0 07/27/18 08:00 97.6 61 18 177/74 (108) 94 97.6 07/27/18 04:00 98.1 61 18 132/70 (90) 98 98.1 07/27/18 00:47 66 182/78 07/27/18 00:00 97.4 66 20 182/78 (112) 98 97.4 07/26/18 21:00 Nasal Cannula 2.0 07/26/18 20:01 74 16 Nasal Cannula 2.0 28 07/26/18 20:00 98.1 60 19 170/71 (104) 98 98.1 Intake and Output 07/26/18 07/27/18 19:00 07:00 Intake Total 480 ml 240 ml Balance 480 ml 240 ml Intake Oral 480 ml 240 ml # Voids 3 7 # Bowel Movements 2 Laboratory Tests 07/27/18 05:20: White Blood Count 5.3, Red Blood Count 5.53H, Hemoglobin 12.7, Hematocrit 42.2, Mean Corpuscular Volume 76L, Mean Corpuscular Hemoglobin 23.0L, Mean Corpuscular Hemoglobin Concent 30.2L, Red Cell Distribution Width 12.0, Platelet Count 194, Mean Platelet Volume 7.1, Neutrophils (%) (Auto) 63.2, Lymphocytes (%) (Auto) 24.1, Monocytes (%) (Auto) 9.0, Eosinophils (%) (Auto) 3.0, Basophils (%) (Auto) 0.8, Sodium Level 137, Potassium Level 4.6, Chloride Level 103, Carbon Dioxide Level 29, Anion Gap 5, Blood Urea Nitrogen 20H, Creatinine 1.1, Estimat Glomerular Filtration Rate , Glucose Level 179H, Calcium Level 10.6H Height (Feet): 5 Height (Inches): 4.00 Weight (Pounds): 304 General Appearance: WD/WN, no apparent distress EENT: PERRL/EOMI Neck: normal alignment, supple Cardiovascular: normal rate, regular rhythm, JVD - nl high Respiratory/Chest: decreased breath sounds Abdomen: normal bowel sounds, non tender Edema: mild edema Neurologic: bale coverer II-XII grossly normal Ervin Sifuentes MD Jul 27, 2018 17:01
--- NOTE | 2018-07-27 19:39 | General Progress Note ---
Assessment/Plan Status: stable, progressing Assessment/Plan Dementia Anxiety d/o Ativan prn Provided ro/st Subjective Date patient seen: Jul 27, 2018 Neurologic/Psychiatric: Reports: anxiety, depressed, emotional problems Allergies: Coded Allergies: AZITHROMYCIN (Verified Allergy, Intermediate, ITCHINESS, 10/15/13) QUESTIONABLE ALLERGIC RXN BUT PT STARTED ITCHING AFTER BEING GIVEN A DOSE BUT PT NOT SURE Objective Last 24 Hour Vital Signs Date Time Temp Pulse Resp B/P (MAP) Pulse Ox O2 Delivery O2 Flow Rate FiO2 07/27/18 12:00 97.9 62 18 158/72 (100) 96 97.9 07/27/18 09:59 72 16 Nasal Cannula 2.0 28 07/27/18 08:01 74 171/71 07/27/18 08:00 Nasal Cannula 2.0 07/27/18 08:00 97.6 61 18 177/74 (108) 94 97.6 07/27/18 04:00 98.1 61 18 132/70 (90) 98 98.1 07/27/18 00:47 66 182/78 07/27/18 00:00 97.4 66 20 182/78 (112) 98 97.4 07/26/18 21:00 Nasal Cannula 2.0 07/26/18 20:01 74 16 Nasal Cannula 2.0 28 07/26/18 20:00 98.1 60 19 170/71 (104) 98 98.1 Intake and Output 07/26/18 07/27/18 19:00 07:00 Intake Total 480 ml 240 ml Balance 480 ml 240 ml Intake Oral 480 ml 240 ml # Voids 3 7 # Bowel Movements 2 Laboratory Tests 07/27/18 05:20: White Blood Count 5.3, Red Blood Count 5.53H, Hemoglobin 12.7, Hematocrit 42.2, Mean Corpuscular Volume 76L, Mean Corpuscular Hemoglobin 23.0L, Mean Corpuscular Hemoglobin Concent 30.2L, Red Cell Distribution Width 12.0, Platelet Count 194, Mean Platelet Volume 7.1, Neutrophils (%) (Auto) 63.2, Lymphocytes (%) (Auto) 24.1, Monocytes (%) (Auto) 9.0, Eosinophils (%) (Auto) 3.0, Basophils (%) (Auto) 0.8, Sodium Level 137, Potassium Level 4.6, Chloride Level 103, Carbon Dioxide Level 29, Anion Gap 5, Blood Urea Nitrogen 20H, Creatinine 1.1, Estimat Glomerular Filtration Rate , Glucose Level 179H, Calcium Level 10.6H Height (Feet): 5 Height (Inches): 4.00 Weight (Pounds): 304 General Appearance: no apparent distress, alert Sonny Diaz MD Jul 27, 2018 19:39
[2018-07-27 20:00] VITALS: BP 153/63
--- NOTE | 2018-07-27 21:29 | Cardiology Report ---
APPROVED REPORT EKG Measurement Heart [id number] Atrial paced rhythm, epicardial lead. Electronic pacemaker. Moderate voltage criteria for LVH, may be normal variant Abnormal ECG
[2018-07-28] VITALS (9 sets, daily range): BP systolic 121–161; BP diastolic 55–70
[2018-07-28] MEDS: NovoLOG Insulin Flexpen SUBQ SCH ×4 (06:23→20:28)
--- NOTE | 2018-07-28 07:29 | General Progress Note ---
Assessment/Plan Assessment/Plan CHF -add diuretics . COPD - Bronchodilators. May need iv steroids. Subjective Allergies: Coded Allergies: AZITHROMYCIN (Verified Allergy, Intermediate, ITCHINESS, 10/15/13) QUESTIONABLE ALLERGIC RXN BUT PT STARTED ITCHING AFTER BEING GIVEN A DOSE BUT PT NOT SURE Subjective C/O SOB Objective Last 24 Hour Vital Signs Date Time Temp Pulse Resp B/P (MAP) Pulse Ox O2 Delivery O2 Flow Rate FiO2 07/28/18 04:00 98.8 62 20 133/55 (81) 100 98.8 07/28/18 00:00 98.1 63 17 133/56 (81) 96 98.1 07/27/18 21:25 68 16 Nasal Cannula 2.0 28 07/27/18 21:00 Nasal Cannula 2.0 07/27/18 20:08 61 158/72 07/27/18 20:00 97.8 57 16 153/63 (93) 95 97.8 07/27/18 12:00 97.9 62 18 158/72 (100) 96 97.9 07/27/18 09:59 72 16 Nasal Cannula 2.0 28 07/27/18 08:01 74 171/71 07/27/18 08:00 Nasal Cannula 2.0 07/27/18 08:00 97.6 61 18 177/74 (108) 94 97.6 Intake and Output 07/27/18 07/28/18 19:00 07:00 Intake Total 600 ml Balance 600 ml Intake Oral 600 ml # Voids 3 2 Height (Feet): 5 Height (Inches): 4.00 Weight (Pounds): 300 Objective Cv RR Lungs B wheezes. Abd SNT. BS + E +2 edema Abbey Lozano MD Jul 28, 2018 07:29
[2018-07-28] MEDS: Docusate 100mg cap ORAL SCH ×2 (09:25→20:29)
[2018-07-28] MEDS: Carvedilol 25mg Tab ORAL SCH ×2 (09:25→20:26)
[2018-07-28] MEDS: Heparin 5000 units/ml inj SUBQ SCH ×2 (09:26→20:27)
--- NOTE | 2018-07-28 20:03 | General Progress Note ---
Assessment/Plan Assessment/Plan Dementia Anxiety d/o Ativan prn Provided ro/st Subjective Date patient seen: Jul 28, 2018 Neurologic/Psychiatric: Reports: anxiety, depressed, emotional problems Allergies: Coded Allergies: AZITHROMYCIN (Verified Allergy, Intermediate, ITCHINESS, 10/15/13) QUESTIONABLE ALLERGIC RXN BUT PT STARTED ITCHING AFTER BEING GIVEN A DOSE BUT PT NOT SURE Objective Last 24 Hour Vital Signs Date Time Temp Pulse Resp B/P (MAP) Pulse Ox O2 Delivery O2 Flow Rate FiO2 07/28/18 20:01 74 14 Nasal Cannula 2.0 28 07/28/18 16:00 97.9 74 12 151/67 (95) 98 97.9 07/28/18 13:16 60 121/62 (81) 07/28/18 12:00 98.6 60 12 161/63 (95) 98 98.6 07/28/18 09:25 60 134/70 07/28/18 09:00 Nasal Cannula 2.0 07/28/18 08:59 98.4 60 18 134/70 (91) 98 98.4 07/28/18 08:00 98.4 60 18 134/70 (91) 98 98.4 07/28/18 04:00 98.8 62 20 133/55 (81) 100 98.8 07/28/18 00:00 98.1 63 17 133/56 (81) 96 98.1 07/27/18 21:25 68 16 Nasal Cannula 2.0 28 07/27/18 21:00 Nasal Cannula 2.0 07/27/18 20:08 61 158/72 Intake and Output 07/27/18 07/28/18 19:00 07:00 Intake Total 600 ml Balance 600 ml Intake Oral 600 ml # Voids 3 2 Height (Feet): 5 Height (Inches): 4.00 Weight (Pounds): 300 General Appearance: no apparent distress, alert, confused Neurologic: depressed affect Sonny Diaz MD Jul 28, 2018 20:03
[2018-07-29 04:00] VITALS: BP 154/52
[2018-07-29] MEDS: NovoLOG Insulin Flexpen SUBQ SCH ×2 (06:33→12:18)
[2018-07-29 07:41] LABS: BLOOD UREA NITROGEN 27 mg/dL (7-18); CALCIUM 10.2 MG/DL (8.5-10.1); CHLORIDE 104 MMOL/L (98-107); CREATININE 1.3 MG/DL (0.55-1.30); POTASSIUM 5.1 MMOL/L (3.5-5.1); SODIUM 138 MMOL/L (136-145)
[2018-07-29 08:00] VITALS: BP 123/60
[2018-07-29 08:52] VITALS: BP 141/65
[2018-07-29] MEDS: Docusate 100mg cap ORAL SCH (08:53)
[2018-07-29] MEDS: Carvedilol 25mg Tab ORAL SCH (08:53)
[2018-07-29] MEDS: Heparin 5000 units/ml inj SUBQ SCH (08:57)
[2018-07-29 10:06] LABS: ANION GAP 8 mmol/L (5-15); CARBON DIOXIDE 26 MMOL/L (21-32)
--- NOTE | 2018-07-29 10:38 | General Progress Note ---
Assessment/Plan Status: stable, progressing Assessment/Plan Dementia Anxiety d/o Ativan prn Provided ro/st Subjective Neurologic/Psychiatric: Reports: anxiety, depressed, emotional problems Allergies: Coded Allergies: AZITHROMYCIN (Verified Allergy, Intermediate, ITCHINESS, 10/15/13) QUESTIONABLE ALLERGIC RXN BUT PT STARTED ITCHING AFTER BEING GIVEN A DOSE BUT PT NOT SURE Objective Last 24 Hour Vital Signs Date Time Temp Pulse Resp B/P (MAP) Pulse Ox O2 Delivery O2 Flow Rate FiO2 07/29/18 08:53 62 141/65 07/29/18 08:52 62 141/65 (90) 07/29/18 08:00 98.0 60 18 123/60 (81) 99 98.0 07/29/18 04:00 96.8 60 18 154/52 (86) 98 96.8 07/28/18 23:52 97.2 60 20 133/61 (85) 96 97.2 07/28/18 21:00 Nasal Cannula 2.0 07/28/18 20:26 74 149/64 07/28/18 20:02 98 Nasal Cannula 2.0 28 07/28/18 20:02 Nasal Cannula 2.0 28 07/28/18 20:01 74 14 Nasal Cannula 2.0 28 07/28/18 20:00 97.9 60 20 149/64 (92) 96 97.9 07/28/18 16:00 97.9 74 12 151/67 (95) 98 97.9 07/28/18 13:16 60 121/62 (81) 07/28/18 12:00 98.6 60 12 161/63 (95) 98 98.6 Intake and Output 07/28/18 07/29/18 19:00 07:00 Intake Total 600 ml 300 ml Balance 600 ml 300 ml Intake Oral 300 ml Other 600 ml # Voids 3 2 Laboratory Tests 07/29/18 05:50: Sodium Level 138, Potassium Level 5.1, Chloride Level 104, Carbon Dioxide Level 26, Anion Gap 8, Blood Urea Nitrogen 27H, Creatinine 1.3, Estimat Glomerular Filtration Rate , Glucose Level 206H, Calcium Level 10.2H, Magnesium Level 1.6L Height (Feet): 5 Height (Inches): 4.00 Weight (Pounds): 300 General Appearance: no apparent distress, alert Neurologic: oriented x 3, depressed affect Sonny Diaz MD Jul 29, 2018 10:38
[2018-07-29 12:00] VITALS: BP 125/70
--- NOTE | 2018-07-29 13:15 | General Progress Note ---
Assessment/Plan Assessment/Plan CHF -improved post diuretics. COPD - Bronchodilators. DC home.. Subjective Allergies: Coded Allergies: AZITHROMYCIN (Verified Allergy, Intermediate, ITCHINESS, 10/15/13) QUESTIONABLE ALLERGIC RXN BUT PT STARTED ITCHING AFTER BEING GIVEN A DOSE BUT PT NOT SURE Subjective Less SOB Objective Last 24 Hour Vital Signs Date Time Temp Pulse Resp B/P (MAP) Pulse Ox O2 Delivery O2 Flow Rate FiO2 07/29/18 12:00 97.9 72 18 125/70 (88) 98 97.9 07/29/18 09:00 Nasal Cannula 2.0 07/29/18 08:53 62 141/65 07/29/18 08:52 62 141/65 (90) 07/29/18 08:00 98.0 60 18 123/60 (81) 99 98.0 07/29/18 04:00 96.8 60 18 154/52 (86) 98 96.8 07/28/18 23:52 97.2 60 20 133/61 (85) 96 97.2 07/28/18 21:00 Nasal Cannula 2.0 07/28/18 20:26 74 149/64 07/28/18 20:02 98 Nasal Cannula 2.0 28 07/28/18 20:02 Nasal Cannula 2.0 28 07/28/18 20:01 74 14 Nasal Cannula 2.0 28 07/28/18 20:00 97.9 60 20 149/64 (92) 96 97.9 07/28/18 16:00 97.9 74 12 151/67 (95) 98 97.9 07/28/18 13:16 60 121/62 (81) Intake and Output 07/28/18 07/29/18 19:00 07:00 Intake Total 600 ml 300 ml Balance 600 ml 300 ml Intake Oral 300 ml Other 600 ml # Voids 3 2 Laboratory Tests 07/29/18 05:50: Sodium Level 138, Potassium Level 5.1, Chloride Level 104, Carbon Dioxide Level 26, Anion Gap 8, Blood Urea Nitrogen 27H, Creatinine 1.3, Estimat Glomerular Filtration Rate , Glucose Level 206H, Calcium Level 10.2H, Magnesium Level 1.6L Height (Feet): 5 Height (Inches): 4.00 Weight (Pounds): 300 Objective Cv RR Lungs less wheezes. Abd SNT. BS + E +2 edema Abbey Lozano MD Jul 29, 2018 13:15
--- NOTE | 2018-07-30 10:31 | Discharge Summary ---
Discharge Summary Discharge Summary _ DATE OF ADMISSION: 07/25/2018 DATE OF DISCHARGE: 07/29/2018 CONSULTANTS: Dr. Sonny Diaz BRIEF HOSPITAL COURSE: Patient is an 83-year-old -[place] female, with history of congestive heart failure, diastolic dysfunction, hypertension, status post pacemaker placement, COPD, type 2 diabetes mellitus, morbid obesity, vertigo and syncope presented to ED due to multiple complaints. She was complaining of shortness of breath and elevated blood sugar in the range of 400s. She was evaluated at the emergency room. Blood work showed glucose 130. She denied any chest pain, nausea, vomiting or diarrhea. She had +1-2 pedal edema. Chest x-ray showed pulmonary venous congestion. She was admitted for fluid overload. She was given diuresis and bronchodilators. She also complained of abdominal pain and constipation she was given lactulose. Psychiatric evaluation was done. Patient has anxiety and was forgetful. She was provided reality orientation. She was placed on Ativan as needed. She was continued on Coreg. Blood glucose was monitored. She was placed on insulin sliding scale. Hemoglobin A1c was 8.2. She was breathing better, with less SOB. She was discharged home. FINAL DIAGNOSES: Acute on chronic diastolic CHF COPD Anxiety disorder DISPOSITION: Patient was discharged home with home health. DISCHARGE MEDICATIONS: Refer to Discharge Medication List. DISCHARGE INSTRUCTIONS: Follow up in a week. I have been assigned to dictate discharge summary on this account, and I was not involved in the patient's management. Odalis Mcmahon NP Jul 30, 2018 10:31
== END 2018-07-29 16:51 | disposition home or self-care (01) | DRG 292 ==
LOC: EMR 16:10 → 4E 16:13 → EDBEDREQ 16:57
DX: I11.0 Hypertensive heart disease with heart failure (principal); Z68.43 Body mass index [BMI] 50.0-59.9, adult; I50.33 Acute on chronic diastolic (congestive) heart failure; J44.9 Chronic obstructive pulmonary disease, unspecified; Z88.1 Allergy status to other antibiotic agents; Z79.4 Long term (current) use of insulin; F41.8 Other specified anxiety disorders; Z95.0 Presence of cardiac pacemaker; F03.90 Unspecified dementia, unspecified severity, without behavioral disturbance, psychotic disturbance, mood disturbance, and anxiety; F41.9 Anxiety disorder, unspecified; E66.01 Morbid (severe) obesity due to excess calories
CPT/HCPCS: 36415; 71045; 80048; 80053; 81003; 82550; 82553; 82962; 83036; 83605; 83690; 83735; 83880; 84484; 85025; 87040; 93005; 94664; 94760; 99285; J1815; J2405; J8499

== ENCOUNTER 2018-08-15 19:00 | Inpatient (IN) | payer MEDICARE, MEDICAID ==
[~2018-08-15] VITALS: Ht 162.6 cm; Wt 138.4 kg
[2018-08-15] MEDS ORDERED: Morphine Sulfate 4mg/ml Inj (IV USE ONLY) IVP ONE (19:15)
[2018-08-15] MEDS ORDERED: Sodium Chloride 500ML 550 ML IV SCH (19:15)
[2018-08-15] MEDS ORDERED: Solu-MEDROL 125mg Inj IVP ONE (19:15)
[2018-08-15] MEDS ORDERED: Ipratropium 0.02% Inh Soln 2.5ml UD HHN ONE (19:15)
[2018-08-15] MEDS: Albuterol ud Inhalation HHN SCH ×3 (19:36→20:04)
--- NOTE | 2018-08-15 19:39 | Emergency Room Report ---
History of Present Illness General Chief Complaint: Dyspnea/Respdistress Source: Patient Present Illness HPI Patient presents with 3-4 days of cough and wheezing. She also has weakness and chest pain at this time. She had sweats last night although she didn't document her temperature. Her son had an URI and believes he gave it to her. The patient has a history of COPD and asthma. She's had pneumonia in the past. She's has swelling in her legs however when they've done studies there's been no blood clot there. She denies any pain or calfs but has swelling more in her left leg than her right. Venous disease. No NVD, dysuria, loose stools, melena. 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 Diabetic on insulin. Not know recent glucose. Allergies: Coded Allergies: AZITHROMYCIN (Verified Allergy, Intermediate, ITCHINESS, 10/15/13) QUESTIONABLE ALLERGIC RXN BUT PT STARTED ITCHING AFTER BEING GIVEN A DOSE BUT PT NOT SURE Patient History Past Medical History: see triage record Past Surgical History: lawson, hysterectomy, pacemaker Social History: Denies: smoking Social History Narrative with son Now: No Reviewed Nursing Documentation: PMH: Agreed; PSxH: Agreed Nursing Documentation-PMH Hx Cardiac Problems: Yes Hx Hypertension: Yes Hx Pacemaker: Yes Hx Asthma: Yes Hx COPD: Yes Hx Diabetes: Yes Hx Cancer: No Hx Gastrointestinal Problems: No Hx Neurological Problems: Yes - osteoarthritis Hx Tremors: Yes Hx Vertigo: Yes Hx Dizziness: Yes Hx Syncope: Yes Hx Headaches: Yes Hx Weakness: Yes Hx Fatigue: Yes Review of Systems All Other Systems: negative except mentioned in HPI Physical Exam Vital Signs Date Time Temp Pulse Resp B/P (MAP) Pulse Ox O2 Delivery O2 Flow Rate FiO2 08/15/18 19:09 87 22 149/80 96 Sp02 EP Interpretation: reviewed, normal General Appearance: well appearing, GCS 15, mild distress Head: normocephalic Eyes: bilateral eye normal inspection ENT: moist mucus membranes Neck: supple Respiratory: respiratory distress - mild, wheezing, expiration, inspiration, other - pacer L Cardiovascular #1: regular rate, rhythm, edema - L > R Cardiovascular #2: 2+ radial (R) Gastrointestinal: normal inspection, normal bowel sounds, non tender, no mass, non-distended, overweight Musculoskeletal: back normal, normal range of motion, no calf tenderness, [place] 's Sign negative Neurologic: alert, oriented x3, motor strength/tone normal, DTRs symmetric, sensory intact, speech normal, other - blind Psychiatric: mood/affect normal Skin: warm/dry, other - venous disease Medical Decision Making Diagnostic Impression: Primary Impression: Pneumonia Qualified Codes: J18.1 - Lobar pneumonia, unspecified organism Additional Impressions: Bronchospasm Hyperglycemia Hypomagnesemia COPD (chronic obstructive pulmonary disease) Qualified Codes: J44.0 - Chronic obstructive pulmonary disease with acute lower respiratory infection ER Course Patient presents with cough chest pain and wheezing. Differential includes acute myocardial infarction, acute coronary syndrome, pneumonia, exacerbation of COPD amongst others. The patient will be evaluated with EKG, chest x-ray and labs including blood cultures and lactate. The patient retreated with slight Medrol and breathing treatments initially. The patient and her x-ray she may need to be started on antibiotics. Doubt DVT based on history. Consider non-invasive vasc study. EKG without injury. CXR with R infiltrate - possible fluid. Elevated WBC. Elevated BUN. Hyperglycemia. Low magnesium. No significant pyuria. Improved with aggressive pulm treatments and solumedrol. Refused morphine but agreed to codeine. Saturation varies from 92 - 97% on room air. Patient needing continued breathing treatments and antibiotics. Admitted telemetry. Consider magnesium replacement if still with dyspnea and bronchospasm. Discussed with Dr. Lozano. Laboratory Tests Test 08/15/18 20:05 08/15/18 21:30 White Blood Count 15.4 K/UL (4.8-10.8) H Red Blood Count 5.35 M/UL (4.20-5.40) Hemoglobin 12.9 G/DL (12.0-16.0) Hematocrit 41.4 % (37.0-47.0) Mean Corpuscular Volume 77 FL (80-99) L Mean Corpuscular Hemoglobin 24.0 PG (27.0-31.0) L Mean Corpuscular Hemoglobin Concent 31.0 G/DL (32.0-36.0) L Red Cell Distribution Width 11.9 % (11.6-14.8) Platelet Count 230 K/UL (150-450) Mean Platelet Volume 6.8 FL (6.5-10.1) Neutrophils (%) (Auto) 87.3 % (45.0-75.0) H Lymphocytes (%) (Auto) 5.8 % (20.0-45.0) L Monocytes (%) (Auto) 6.2 % (1.0-10.0) Eosinophils (%) (Auto) 0.3 % (0.0-3.0) Basophils (%) (Auto) 0.4 % (0.0-2.0) Prothrombin Time 11.3 SEC (9.30-11.50) Prothrombin Time INR 1.1 (0.9-1.1) PTT 27 SEC (23-33) Sodium Level 137 MMOL/L (136-145) Potassium Level 4.3 MMOL/L (3.5-5.1) Chloride Level 104 MMOL/L (98-107) Carbon Dioxide Level 27 MMOL/L (21-32) Anion Gap 6 mmol/L (5-15) Blood Urea Nitrogen 24 mg/dL (7-18) H Creatinine 1.3 MG/DL (0.55-1.30) Estimate Glomerular Filtration Rate mL/min (>60) Glucose Level 206 MG/DL (74-106) H Lactic Acid Level 1.50 mmol/L (0.4-2.0) Calcium Level 10.1 MG/DL (8.5-10.1) Magnesium Level 1.7 MG/DL (1.8-2.4) L Total Bilirubin 0.4 MG/DL (0.2-1.0) Aspartate Amino Transferase (AST) 17 U/L (15-37) Alanine Aminotransferase (ALT) 24 U/L (12-78) Alkaline Phosphatase 113 U/L (46-116) Total Creatine Kinase 104 U/L (26-308) Troponin I 0.000 ng/mL (0.000-0.056) Pro-B-Type Natriuretic Peptide 751 pg/mL (0-125) H Total Protein 7.5 G/DL (6.4-8.2) Albumin 3.1 G/DL (3.4-5.0) L Globulin 4.4 g/dL Albumin/Globulin Ratio 0.7 (1.0-2.7) L Urine Color Yellow Urine Appearance Cloudy Urine pH 8 (4.5-8.0) Urine Specific [place] 1.015 (1.005-1.035) Urine Protein 3+ (NEGATIVE) H Urine Glucose (UA) Negative (NEGATIVE) Urine Ketones Negative (NEGATIVE) Urine Blood 1+ (NEGATIVE) H Urine Nitrite Positive (NEGATIVE) H Urine Bilirubin Negative (NEGATIVE) Urine Urobilinogen Normal MG/DL (0.0-1.0) Urine Leukocyte Esterase 1+ (NEGATIVE) H Urine RBC 5-10 /HPF (0 - 2) H Urine WBC 0-2 /HPF (0 - 2) Urine Squamous Epithelial Cells Occasional /LPF Urine Bacteria Many /HPF (NONE) H EKG Diagnostic Results Rate: normal Rhythm: NSR ST Segments: no acute changes Rhythm Strip Diag. Results EP Interpretation: yes Rhythm: NSR, no PVC's, no ectopy Chest X-Ray Diagnostic Results Chest X-Ray Diagnostic Results : Chest X-Ray Ordered: Yes # of Views/Limited/Complete: 1 View Indication: Shortness of Breath EP Interpretation: Yes Interpretation: no effusion, no pneumothorax, other - RLL infiltrate and minor fissure prominent Impression: Other Electronically Signed by: Electronically signed by Darci Regan MD Last Vital Signs Date Time Temp Pulse Resp B/P (MAP) Pulse Ox O2 Delivery O2 Flow Rate FiO2 08/16/18 00:00 97.6 81 22 163/70 (101) 94 97.6 08/16/18 00:00 Room Air 10.0 21 Status: improved Disposition: ADMITTED INPATIENT Condition: Serious Referrals: NON PHYSICIAN (PCP) Darci Regan M.D. Aug 15, 2018 19:39
[2018-08-15] MEDS ORDERED: TYLENOL EXTRA500 MG ORAL (20:13)
[2018-08-15] MEDS ORDERED: SIMBRINZA 1%-0.28 ML OP (20:13)
[2018-08-15] MEDS ORDERED: GUAIFENESIN-CO118 M1 ORAL (20:13)
[2018-08-15] MEDS ORDERED: CARVEDILOL12.5 MG ORAL (20:13)
[2018-08-15] MEDS ORDERED: LANTUS SOL100 UNIT/1 SUBQ (20:19)
[2018-08-15] MEDS ORDERED: NOVOLOG100 UNIT/3 SUBQ (20:19)
[2018-08-15 20:20] VITALS: BP 104/77
[2018-08-15 20:29] LABS: HEMATOCRIT 41.4 % (37.0-47.0); HEMOGLOBIN 12.9 G/DL (12.0-16.0); MEAN CORPUSCULAR VOLUME 77 FL (80-99); PLATELET COUNT 230 K/UL (150-450); RED BLOOD COUNT 5.35 M/UL (4.20-5.40); RED CELL DISTRIBUTION WIDTH 11.9 % (11.6-14.8); WHITE BLOOD COUNT 15.4 K/UL (4.8-10.8)
[2018-08-15 20:30] LABS: BASOPHILS % (AUTO) 0.4 % (0.0-2.0); EOSINOPHILS % (AUTO) 0.3 % (0.0-3.0); LYMPHOCYTES % (AUTO) 5.8 % (20.0-45.0); MONOCYTES % (AUTO) 6.2 % (1.0-10.0); NEUTROPHILS % (AUTO) 87.3 % (45.0-75.0)
[2018-08-15 20:37] LABS: INR 1.1 (0.9-1.1)
[2018-08-15 20:39] LABS: ANION GAP 6 mmol/L (5-15); BLOOD UREA NITROGEN 24 mg/dL (7-18); CALCIUM 10.1 MG/DL (8.5-10.1); CARBON DIOXIDE 27 MMOL/L (21-32); CHLORIDE 104 MMOL/L (98-107); CREATININE 1.3 MG/DL (0.55-1.30); POTASSIUM 4.3 MMOL/L (3.5-5.1); SODIUM 137 MMOL/L (136-145)
[2018-08-15] MEDS ORDERED: cefTRIAXone 1 GM in D5W 55 ML IVPB ONE (20:45)
[2018-08-15 20:50] LABS: ALANINE AMINOTRANSFERASE 24 U/L (12-78); ALBUMIN 3.1 G/DL (3.4-5.0); ALBUMIN/GLOBULIN RATIO 0.7 (1.0-2.7); ALKALINE PHOSPHATASE 113 U/L (46-116); ASPARTATE AMINO TRANSFERASE 17 U/L (15-37); BILIRUBIN,TOTAL 0.4 MG/DL (0.2-1.0); CREATINE KINASE 104 U/L (26-308)
[2018-08-15 21:44] LABS: APPEARANCE,URINE CLOUDY; BILIRUBIN, URINE NEGATIVE (NEGATIVE); COLOR,URINE YELLOW; GLUCOSE, URINE (UA) NEGATIVE (NEGATIVE); KETONES,URINE NEGATIVE (NEGATIVE); LEUKOCYTE ESTERASE ,URINE 1+ (NEGATIVE); NITRITE,URINE POSITIVE (NEGATIVE); PH,URINE 8 (4.5-8.0); PROTEIN,URINE 3+ (NEGATIVE); UROBILINOGEN,URINE NORMAL MG/DL (0.0-1.0)
[2018-08-15] MEDS: guaiFENesin w/Codeine 5ml Liq ud ORAL PRN (22:00)
[2018-08-15 22:20] VITALS: BP 137/67
[2018-08-15 23:20] VITALS: BP 137/69
[2018-08-16] VITALS: BP 163/70
[2018-08-16] MEDS ORDERED: Albuterol/Ipratropium 3ml neb HHN PRN (00:45)
[2018-08-16] MEDS ORDERED: guaiFENesin w/Codeine 5ml Liq ud ORAL PRN (00:45)
[2018-08-16] MEDS ORDERED: Acetaminophen 500mg (ES) tab ORAL PRN (00:45)
[2018-08-16] MEDS: guaiFENesin w/Codeine 5ml Liq ud ORAL PRN (01:51)
[2018-08-16 04:00] VITALS: BP 162/72
[2018-08-16] MEDS: NovoLOG Insulin Flexpen SUBQ SCH ×4 (06:16→21:08)
[2018-08-16 08:00] VITALS: BP 146/69
[2018-08-16] MEDS: Carvedilol 12.5mg tab ORAL SCH (09:12)
[2018-08-16] MEDS: Aspirin EC 81mg tab ORAL SCH (09:12)
[2018-08-16] MEDS: Heparin 5000 units/ml inj SUBQ SCH ×2 (09:15→21:07)
--- NOTE | 2018-08-16 09:42 | Diagnostic Imaging Report ---
Indication: Cough Technique: One view of the chest Comparison: 07/25/2018 Findings: Body habitus limits evaluation. Right perihilar linear opacity likely reflect areas of scarring. There are borderline interstitial congestive changes, similar to the previous exam. The heart is mildly enlarged. There is a left chest pacemaker again demonstrated Impression: Primarily with mild interstitial congestion, similar to prior study of 08/04/2018 Other stable findings as described
--- NOTE | 2018-08-16 11:11 | Consultation ---
History of Present Illness General Date patient seen: Aug 16, 2018 Chief Complaint: Dyspnea/Respdistress Present Illness HPI The patient presents with mmp, pw 3-4 days of cough and wheezing. the pt is well known to this physician and has hx of depression and anxiety. the pt stated that he has problems sleeping due to anxiety and depression. She lives in her own apartment and stated that her appetite has decreased. Allergies: Coded Allergies: AZITHROMYCIN (Verified Allergy, Intermediate, ITCHINESS, 10/15/13) QUESTIONABLE ALLERGIC RXN BUT PT STARTED ITCHING AFTER BEING GIVEN A DOSE BUT PT NOT SURE Medication History Scheduled Aspirin Ec* (Aspirin Ec*), 81 MG ORAL DAILY Brinzolamide/Brimonid Tart (Simbrinza 1%-0.2% Eye Drops), 1 DRP OP DAILY, ( Reported) Carvedilol* (Carvedilol*), 12.5 MG ORAL DAILY, (Reported) Furosemide* (Lasix*), 20 MG ORAL DAILY Insulin Aspart* (Novolog*), 12 UNITS SUBQ THREE TIMES A DAY, (Reported) Insulin Glargine (Lantus), 12 UNITS SUBQ BEDTIME, (Reported) Irbesartan* (Avapro*), 300 MG ORAL DAILY Potassium Chloride* (K-Dur*), 20 MEQ ORAL DAILY Scheduled PRN Acetaminophen* (Tylenol Extra Strength*), 500 MG ORAL DAILY PRN for Mild Pain ( Pain Scale 1-3), (Reported) Al Hydroxide/mg Hydroxide (Mag-Al Liquid), 30 ML ORAL Q6H PRN Guaifenesin/Codeine Phos* (Robitussin Ac*), 5 ML ORAL Q6H PRN for For Cough, ( Reported) Discontinued Medications Labetalol HCl (Labetalol HCl), 300 MG ORAL Q12HR Discontinued Reason: Pt stopped taking med Patient History Limited by: medical condition History Provided By: Patient, Medical Record, PMD Healthcare decision maker Resuscitation status Full Code Advanced Directive on File Past Medical/Surgical History Past Medical/Surgical History: (1) Diabetes (2) DM circ dis type I (3) Generalized osteoarthrosis (4) Upper respiratory infection (5) Upper respiratory infection (6) Urinary tract infection (7) Abdominal pain, right upper quadrant (8) Back injury (9) Back pain (10) Dyspnea (11) CHF (congestive heart failure) (12) Sarcoid (13) Bronchitis (14) HTN (hypertension) (15) Pacemaker (16) ACS (acute coronary syndrome) (17) Asthma attack (18) Acute exacerbation of chronic obstructive pulmonary disease (19) DM (diabetes mellitus), type 1 uncontrolled with peripheral vascular complication (20) History of CHF (congestive heart failure) (21) Knee contusion (22) Asthma exacerbation (23) [id number] (24) Dyspnea (25) UTI (urinary tract infection) (26) Shortness of breath dyspnea (27) Hypomagnesemia (28) Hyperglycemia (29) COPD (chronic obstructive pulmonary disease) (30) Bronchospasm (31) Pneumonia Review of Systems Psychiatric: Reports: prior hx, anxiety, depressed feelings Physical Exam General Appearance: no apparent distress, alert Neurologic: oriented x 3, responsive, depressed affect Last 24 Hour Vital Signs Date Time Temp Pulse Resp B/P (MAP) Pulse Ox O2 Delivery O2 Flow Rate FiO2 08/16/18 09:12 87 146/69 08/16/18 08:00 97.0 87 18 146/69 (94) 100 97.0 08/16/18 04:00 97.3 75 20 162/72 (102) 98 97.3 08/16/18 04:00 78 08/16/18 00:00 97.6 81 22 163/70 (101) 94 97.6 08/16/18 00:00 98.4 70 27 137/67 95 Room Air 10.0 21 98.4 08/15/18 23:20 78 08/15/18 23:05 Room Air 08/15/18 22:20 98.4 70 27 137/67 95 Room Air 98.4 08/15/18 20:23 65 27 Venturi Mask 10.0 21 08/15/18 20:20 98.4 65 27 104/77 100 Venturi Mask 10.0 98.4 08/15/18 20:06 88 26 100 Room Air 21 08/15/18 19:46 36 08/15/18 19:46 89 26 100 Room Air 21 08/15/18 19:45 69 27 100 Room Air 21 08/15/18 19:38 36 08/15/18 19:38 85 24 100 Room Air 21 08/15/18 19:36 79 28 100 Room Air 21 08/15/18 19:24 36 08/15/18 19:24 74 19 Room Air 21 08/15/18 19:24 77 19 100 Room Air 21 08/15/18 19:09 87 22 149/80 96 Intake and Output 08/15/18 08/16/18 19:00 07:00 Intake Total 120 ml Balance 120 ml Intake Oral 120 ml Laboratory Tests Test 08/15/18 20:05 08/15/18 21:30 08/16/18 05:55 White Blood Count 15.4 K/UL (4.8-10.8) H Red Blood Count 5.35 M/UL (4.20-5.40) Hemoglobin 12.9 G/DL (12.0-16.0) Hematocrit 41.4 % (37.0-47.0) Mean Corpuscular Volume 77 FL (80-99) L Mean Corpuscular Hemoglobin 24.0 PG (27.0-31.0) L Mean Corpuscular Hemoglobin Concent 31.0 G/DL (32.0-36.0) L Red Cell Distribution Width 11.9 % (11.6-14.8) Platelet Count 230 K/UL (150-450) Mean Platelet Volume 6.8 FL (6.5-10.1) Neutrophils (%) (Auto) 87.3 % (45.0-75.0) H Lymphocytes (%) (Auto) 5.8 % (20.0-45.0) L Monocytes (%) (Auto) 6.2 % (1.0-10.0) Eosinophils (%) (Auto) 0.3 % (0.0-3.0) Basophils (%) (Auto) 0.4 % (0.0-2.0) Prothrombin Time 11.3 SEC (9.30-11.50) Prothromb Time International Ratio 1.1 (0.9-1.1) Activated Partial Thromboplast Time 27 SEC (23-33) Sodium Level 137 MMOL/L (136-145) Potassium Level 4.3 MMOL/L (3.5-5.1) Chloride Level 104 MMOL/L (98-107) Carbon Dioxide Level 27 MMOL/L (21-32) Anion Gap 6 mmol/L (5-15) Blood Urea Nitrogen 24 mg/dL (7-18) H Creatinine 1.3 MG/DL (0.55-1.30) Estimat Glomerular Filtration Rate mL/min (>60) Glucose Level 206 MG/DL (74-106) H Lactic Acid Level 1.50 mmol/L (0.4-2.0) Calcium Level 10.1 MG/DL (8.5-10.1) Magnesium Level 1.7 MG/DL (1.8-2.4) L Total Bilirubin 0.4 MG/DL (0.2-1.0) Aspartate Amino Transf (AST/SGOT) 17 U/L (15-37) Alanine Aminotransferase (ALT/SGPT) 24 U/L (12-78) Alkaline Phosphatase 113 U/L (46-116) Total Creatine Kinase 104 U/L (26-308) Troponin I 0.000 ng/mL (0.000-0.056) Pro-B-Type Natriuretic Peptide 751 pg/mL (0-125) H Total Protein 7.5 G/DL (6.4-8.2) Albumin 3.1 G/DL (3.4-5.0) L Globulin 4.4 g/dL Albumin/Globulin Ratio 0.7 (1.0-2.7) L Urine Color Yellow Urine Appearance Cloudy Urine pH 8 (4.5-8.0) Urine Specific [place] 1.015 (1.005-1.035) Urine Protein 3+ (NEGATIVE) H Urine Glucose (UA) Negative (NEGATIVE) Urine Ketones Negative (NEGATIVE) Urine Blood 1+ (NEGATIVE) H Urine Nitrite Positive (NEGATIVE) H Urine Bilirubin Negative (NEGATIVE) Urine Urobilinogen Normal MG/DL (0.0-1.0) Urine Leukocyte Esterase 1+ (NEGATIVE) H Urine RBC 5-10 /HPF (0 - 2) H Urine WBC 0-2 /HPF (0 - 2) Urine Squamous Epithelial Cells Occasional /LPF Urine Bacteria Many /HPF (NONE) H Hemoglobin A1c 8.3 % (4.3-6.0) H Microbiology Date/Time Source Procedure Growth Status 08/15/18 21:30 Urine,Clean Catch Urine Culture - Preliminary Resulted 08/15/18 21:00 Rectum Received Height (Feet): 5 Height (Inches): 4.00 Weight (Pounds): 305 Medications Current Medications Medications (Trade) Dose Ordered Sig/[place] Route PRN Reason Start Time Stop Time Status Last Admin Dose Admin Acetaminophen (Tylenol) 500 mg DAILY PRN ORAL Mild Pain (Pain Scale 1-3) 08/16/18 00:45 09/15/18 00:44 Albuterol/ Ipratropium (Albuterol/ Ipratropium) 3 ml Q4H PRN HHN Shortness of Breath 08/16/18 00:45 08/21/18 00:44 Aspirin (Ecotrin) 81 mg DAILY ORAL 08/16/18 09:00 09/15/18 08:59 08/16/18 09:12 Carvedilol (Coreg) 12.5 mg DAILY ORAL 08/16/18 09:00 09/15/18 08:59 08/16/18 09:12 Ceftriaxone Sodium 1 gm/ Dextrose 55 ml @ 110 mls/hr Q24H IVPB 08/16/18 20:00 08/23/18 19:59 Dextrose (Dextrose 50%) 25 ml Q30M PRN IV Hypoglycemia 08/16/18 09:30 09/15/18 09:20 Dextrose (Dextrose 50%) 50 ml Q30M PRN IV hypoglycemia 08/16/18 09:30 09/15/18 09:29 Furosemide (Lasix) 20 mg DAILY ORAL 08/16/18 09:00 09/15/18 08:59 08/16/18 09:12 Guaifenesin/ Codeine Phosphate (Robitussin with codeine) 5 ml Q6H PRN ORAL For Cough 08/16/18 00:45 09/15/18 00:44 Heparin Sodium (Porcine) (Heparin 5000 units/ml) 5,000 units EVERY 12 HOURS SUBQ 08/16/18 09:00 09/15/18 08:59 08/16/18 09:15 Insulin Aspart (NovoLOG) BEFORE MEALS AND HS SUBQ 08/16/18 06:30 09/15/18 06:29 08/16/18 06:16 Insulin Detemir (Levemir) 12 units BEDTIME SUBQ 08/16/18 21:00 09/15/18 20:59 Potassium Chloride (K-Dur) 20 meq DAILY ORAL 08/16/18 09:00 09/15/18 08:59 08/16/18 09:12 Assessment/Plan Problem List: (1) Major depression ICD Codes: F32.9 - Major depressive disorder, single episode, unspecified SNOMED: 342333590 (2) Anxiety disorder ICD Codes: F41.9 - Anxiety disorder, unspecified SNOMED: 543362007 Status: stable Assessment/Plan remeron 7.5mg qhs provided ro/Sonny Orona MD Aug 16, 2018 11:11
[2018-08-16 12:00] VITALS: BP 137/63
[2018-08-16] MEDS ORDERED: Miralax 17gm pkt ORAL PRN (13:45)
[2018-08-16 16:00] VITALS: BP 132/54
--- NOTE | 2018-08-16 17:00 | History and Physical Report ---
DATE OF ADMISSION: 08/15/2018 CHIEF COMPLAINT: Shortness of breath. HISTORY OF PRESENT ILLNESS: This is an 83-year-old well-known patient who is being admitted to this hospital multiple times by myself. Her last admission was about a month ago to this hospital. The patient has been complaining of productive cough and wheezing over the last three to four days prior to admission. I saw the patient in my office about a week ago. She came to regular followup and had uncontrolled type 2 diabetes mellitus with the values well above 300. The patient was recommended to have a 72-hour regular glucose monitoring. PAST MEDICAL HISTORY: 1. Type 2 uncontrolled diabetes mellitus. 2. Morbid obesity. 3. COPD. 4. Degenerative joint disease. 5. Psychiatric disorder NOS. 6. Diastolic heart failure. 7. Status post pacemaker. 8. Diabetic Nephropathy. 9. 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 10. Noncompliance with medications. HOME MEDICATIONS: Tylenol p.r.n., albuterol inhalation, Coreg, Levemir, Lasix, and baby aspirin. ALLERGIES: Erythromycin. FAMILY HISTORY: Unremarkable. SOCIAL HISTORY: She lives at home. HABITS: She is a nonsmoker and nondrinker. There is no history of illicit drug abuse. REVIEW OF SYSTEMS: HEENT: Hearing normal. Eyesight, she is almost legally blind. ENDOCRINE: Significant for type 2 diabetes mellitus. RESPIRATORY: Please refer to the history of present illness. She has COPD with multiple bouts of COPD exacerbation. She denies chest pain or palpitations. GASTROINTESTINAL: No history of hematochezia, melena, hematemesis, diarrhea, or constipation. MUSCULOSKELETAL: She has history of osteoarthritis. NEUROLOGIC: No history of stroke, syncope, or Parkinson disease. PHYSICAL EXAMINATION: GENERAL: This is an elderly female, who is in no acute distress. VITAL SIGNS: Blood pressure 146/69, pulse 87 and regular, respirations 15, and temperature 97. HEENT: The head is normocephalic and atraumatic. Pupils are equal, round, and reactive to light and accommodation consensually. NECK: Supple. Trachea midline. There was no lymphadenopathy or thyromegaly. LUNGS: Bilateral wheezes. HEART: Regular rate and rhythm without rubs, murmurs, or gallops. ABDOMEN: Soft and nontender. Bowel sounds were active. EXTREMITIES: No clubbing, cyanosis, or edema. NEUROLOGIC: She is alert and oriented x4. Cranial nerves II through XII intact. LABORATORY AND ANCILLARY DATA: CBC shows white count 15,400 and hematocrit 41.4. The rest of the CBC within normal limits. BMP, glucose 206, otherwise within normal limits. Chest x-ray, according to Dr. Regan, the ER physician, shows slight infiltrate, possible fluid. ASSESSMENT: 1. Likely pneumonia. 2. COPD exacerbation. 3. Type 2 uncontrolled diabetes mellitus. 4. Morbid obesity. 5. Degenerative joint disease. 6. Psychiatric disorder NOS. 7. Diastolic heart failure. 8. Status post pacemaker. 9. Diabetic Nephropathy. 10. 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 11. Noncompliance with medications. PLAN: 1. Continue home medication. 2. IV antibiotic. 3. Glycemic control. She needs CGM (72 hour glucose monitoring as an outpatient in my office to stratify treatment in an attempt to halt her diabetic nephropathy). Abbey Lozano M.D. DR: RENEA JOB#: [id number] CC: SANDY
[2018-08-16 20:00] VITALS: BP 141/79
[2018-08-16] MEDS: cefTRIAXone 1 GM in D5W 55 ML IVPB SCH (20:30)
[2018-08-16] MEDS: Levemir Flexpen SUBQ SCH (21:07)
[2018-08-17] VITALS: BP 145/70
[2018-08-17 04:00] VITALS: BP 150/54
[2018-08-17] MEDS: NovoLOG Insulin Flexpen SUBQ SCH ×4 (06:15→20:43)
[2018-08-17 08:00] VITALS: BP 138/56
--- NOTE | 2018-08-17 09:27 | General Progress Note ---
Assessment/Plan Assessment/Plan Pneumonia - IV Abx. Uncontrolled AODM. Patient is blind and unble to control her BG. Refusing SNF. 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 Asked patient to follow in my office to get CGM (continuous glucose monitoring 72 hours). Subjective Allergies: Coded Allergies: AZITHROMYCIN (Verified Allergy, Intermediate, ITCHINESS, 10/15/13) QUESTIONABLE ALLERGIC RXN BUT PT STARTED ITCHING AFTER BEING GIVEN A DOSE BUT PT NOT SURE Subjective Still c/o constipation! C/o yellow productive cough! Objective Last 24 Hour Vital Signs Date Time Temp Pulse Resp B/P (MAP) Pulse Ox O2 Delivery O2 Flow Rate FiO2 08/17/18 04:00 60 08/17/18 04:00 97.0 60 20 150/54 (86) 96 97.0 08/17/18 00:00 97.9 75 20 145/70 (95) 99 97.9 08/16/18 23:30 60 08/16/18 21:00 Nasal Cannula 2.0 08/16/18 20:31 28 08/16/18 20:31 61 18 95 Nasal Cannula 2.0 28 08/16/18 20:31 61 18 Nasal Cannula 2.0 28 08/16/18 20:00 97.0 93 20 141/79 (99) 97 97.0 08/16/18 19:53 62 08/16/18 16:00 97.0 64 20 132/54 (80) 98 97.0 08/16/18 16:00 62 08/16/18 12:00 97.5 68 18 137/63 (87) 97 97.5 08/16/18 12:00 63 Intake and Output 08/16/18 08/17/18 19:00 07:00 Intake Total 480 ml Output Total 1500 ml Balance 480 ml -1500 ml Intake Oral 480 ml Output Urine Total 1500 ml # Voids 3 2 Height (Feet): 5 Height (Inches): 4.00 Weight (Pounds): 303 Objective Blind Cv RR Lungs B ronchi Abd pendulous. SNT. BS + E No CCE Abbey Lozano MD Aug 17, 2018 09:26
[2018-08-17] MEDS: Aspirin EC 81mg tab ORAL SCH (09:28)
[2018-08-17] MEDS ORDERED: Miralax 17gm pkt ORAL PRN (09:28)
[2018-08-17] MEDS: Carvedilol 12.5mg tab ORAL SCH (09:28)
[2018-08-17] MEDS ORDERED: Sennosides 8.6mg ORAL PRN (09:30)
[2018-08-17] MEDS: Heparin 5000 units/ml inj SUBQ SCH ×2 (09:31→20:35)
[2018-08-17] MEDS: Milk of Magnesia 30ml Ud ORAL PRN (09:37)
[2018-08-17 12:00] VITALS: BP 148/60
--- NOTE | 2018-08-17 13:00 | General Progress Note ---
Assessment/Plan Problem List: (1) Major depression ICD Codes: F32.9 - Major depressive disorder, single episode, unspecified SNOMED: 076715350 (2) Anxiety disorder ICD Codes: F41.9 - Anxiety disorder, unspecified SNOMED: 872992411 Status: stable Assessment/Plan cont remeron 7.5 mg qhs provided ro/st Subjective Date patient seen: Aug 17, 2018 Neurologic/Psychiatric: Reports: anxiety, depressed, emotional problems Allergies: Coded Allergies: AZITHROMYCIN (Verified Allergy, Intermediate, ITCHINESS, 10/15/13) QUESTIONABLE ALLERGIC RXN BUT PT STARTED ITCHING AFTER BEING GIVEN A DOSE BUT PT NOT SURE Subjective the pt slept better decrease anxiety Objective Last 24 Hour Vital Signs Date Time Temp Pulse Resp B/P (MAP) Pulse Ox O2 Delivery O2 Flow Rate FiO2 08/17/18 09:28 61 138/56 08/17/18 09:00 Nasal Cannula 2.0 08/17/18 08:00 97.2 61 18 138/56 (83) 96 97.2 08/17/18 04:00 60 08/17/18 04:00 97.0 60 20 150/54 (86) 96 97.0 08/17/18 00:00 97.9 75 20 145/70 (95) 99 97.9 08/16/18 23:30 60 08/16/18 21:00 Nasal Cannula 2.0 08/16/18 20:31 28 08/16/18 20:31 61 18 95 Nasal Cannula 2.0 28 08/16/18 20:31 61 18 Nasal Cannula 2.0 28 08/16/18 20:00 97.0 93 20 141/79 (99) 97 97.0 08/16/18 19:53 62 08/16/18 16:00 97.0 64 20 132/54 (80) 98 97.0 08/16/18 16:00 62 Intake and Output 08/16/18 08/17/18 19:00 07:00 Intake Total 480 ml Output Total 1500 ml Balance 480 ml -1500 ml Intake Oral 480 ml Output Urine Total 1500 ml # Voids 3 2 Height (Feet): 5 Height (Inches): 4.00 Weight (Pounds): 303 General Appearance: no apparent distress, alert Neurologic: oriented x 3, responsive, depressed affect Sonny Diaz MD Aug 17, 2018 13:00
[2018-08-17] MEDS ORDERED: Vancomycin 1.5 GM/D5W 250ML IVPB ONE (14:00)
[2018-08-17 16:00] VITALS: BP 128/89
--- NOTE | 2018-08-17 18:13 | Cardiology Report ---
APPROVED REPORT EXAM: Two-dimensional and M-mode echocardiogram with Doppler and color Doppler. INDICATION ENDOCARDITIS M-Mode DIMENSIONS IVSd0.9 (0.7-1.1cm)Left Atrium (MM)4.2 (1.6-4.0cm) LVDd4.7 (3.5-5.6cm)Aortic Root3.4 (2.0-3.7cm) PWd1.2 (0.7-1.1cm)Aortic Cusp Exc.1.7 (1.5-2.0cm) IVSs1.5 cm LVDs2.7 (2.5-4.0cm) PWs1.7 cm Technically difficult study due to poor windows. Normal left ventricular chamber size, systolic function and wall motion as well visualized. Left ventricular ejection fraction estimated to be 60-65%. Mild left ventricular hypertrophy . No evidence of pericardial effusion. All other cardiac chamber sizes are within normal limits. Focal aortic valve sclerosis with adequate cusp excursion. Thickened mitral valve leaflets with normal excursion. Mitral annulus and aortic root calcification. Pulmonic valve not well visualized. Normal tricuspid valve structure. IVC dilated at size 2.8cm without physiologic collapse, suggestive to increase RA pressure . Pacemaker wire present in the right side chambers. A color flow and spectral Doppler study was performed and revealed: No aortic insufficiency . Trace mitral regurgitation. Mitral diastolic velocities suggest reduced left ventricular relaxation c/w mild LV diastolic dysfunction (Grade I ). Trace tricuspid regurgitation. Tricuspid systolic velocities suggests peak right ventricular systolic pressure of 16 mmHg.
--- NOTE | 2018-08-17 18:58 | Infectious Diseases Prog Note ---
Assessment/Plan Assessment/Plan Full consult dictated: A) 1) gram + bacteremia, sepsis, leukocytosis, ? uti, ? cap pna, uri/bronchitis 2) pmh noted 3) allergies - azithromycin P) 1) vancomycin, rocephin 2) check blood cultures, labs and chest x-ray 3) thank you Subjective Allergies: Coded Allergies: AZITHROMYCIN (Verified Allergy, Intermediate, ITCHINESS, 10/15/13) QUESTIONABLE ALLERGIC RXN BUT PT STARTED ITCHING AFTER BEING GIVEN A DOSE BUT PT NOT SURE Objective Vital Signs Last 24 Hour Vital Signs Date Time Temp Pulse Resp B/P (MAP) Pulse Ox O2 Delivery O2 Flow Rate FiO2 08/17/18 16:00 97.3 62 20 128/89 (102) 96 97.3 08/17/18 16:00 61 08/17/18 12:00 97.0 62 20 148/60 (89) 97 97.0 08/17/18 12:00 60 08/17/18 09:28 61 138/56 08/17/18 09:00 Nasal Cannula 2.0 08/17/18 08:00 97.2 61 18 138/56 (83) 96 97.2 08/17/18 08:00 67 08/17/18 04:00 60 08/17/18 04:00 97.0 60 20 150/54 (86) 96 97.0 08/17/18 00:00 97.9 75 20 145/70 (95) 99 97.9 08/16/18 23:30 60 08/16/18 21:00 Nasal Cannula 2.0 08/16/18 20:31 28 08/16/18 20:31 61 18 95 Nasal Cannula 2.0 28 08/16/18 20:31 61 18 Nasal Cannula 2.0 28 08/16/18 20:00 97.0 93 20 141/79 (99) 97 97.0 08/16/18 19:53 62 Height (Feet): 5 Height (Inches): 4.00 Weight (Pounds): 303 Microbiology Date/Time Source Procedure Growth Status 08/15/18 20:00 Blood Blood Culture - Preliminary Resulted 08/15/18 19:45 Blood Blood Culture - Preliminary Resulted 08/15/18 21:30 Urine,Clean Catch Urine Culture - Preliminary Mixed Gram Positive Organism Resulted 08/15/18 21:00 Rectum Received Current Medications Medications (Trade) Dose Ordered Sig/Haider Route PRN Reason Start Time Stop Time Status Last Admin Dose Admin Acetaminophen (Tylenol) 500 mg DAILY PRN ORAL Mild Pain (Pain Scale 1-3) 08/16/18 00:45 09/15/18 00:44 Albuterol/ Ipratropium (Albuterol/ Ipratropium) 3 ml Q4H PRN HHN Shortness of Breath 08/16/18 00:45 08/21/18 00:44 08/16/18 20:31 Aspirin (Ecotrin) 81 mg DAILY ORAL 08/16/18 09:00 09/15/18 08:59 08/17/18 09:28 Carvedilol (Coreg) 12.5 mg DAILY ORAL 08/16/18 09:00 09/15/18 08:59 08/17/18 09:28 Ceftriaxone Sodium 1 gm/ Dextrose 55 ml @ 110 mls/hr Q24H IVPB 08/16/18 20:00 08/23/18 19:59 08/16/18 20:30 Clonazepam (KlonoPIN) 1 mg BEDTIME ORAL 08/16/18 21:00 08/23/18 20:59 08/16/18 21:06 Dextrose (Dextrose 50%) 25 ml Q30M PRN IV Hypoglycemia 08/16/18 09:30 09/15/18 09:20 Dextrose (Dextrose 50%) 50 ml Q30M PRN IV hypoglycemia 08/16/18 09:30 09/15/18 09:29 Furosemide (Lasix) 20 mg DAILY ORAL 08/16/18 09:00 09/15/18 08:59 08/17/18 09:27 Guaifenesin/ Codeine Phosphate (Robitussin with codeine) 5 ml Q6H PRN ORAL For Cough 08/16/18 00:45 09/15/18 00:44 Heparin Sodium (Porcine) (Heparin 5000 units/ml) 5,000 units EVERY 12 HOURS SUBQ 08/16/18 09:00 09/15/18 08:59 08/17/18 09:31 Insulin Aspart (NovoLOG) BEFORE MEALS AND HS SUBQ 08/16/18 06:30 09/15/18 06:29 08/17/18 16:42 Insulin Detemir (Levemir) 12 units BEDTIME SUBQ 08/16/18 21:00 09/15/18 20:59 08/16/18 21:07 Magnesium Hydroxide (Mom) 30 ml HSPRN PRN ORAL Constipation 08/17/18 09:30 09/16/18 09:29 08/17/18 09:37 Mirtazapine (Remeron) 7.5 mg BEDTIME ORAL 08/16/18 21:00 09/15/18 20:59 08/16/18 21:06 Polyethylene Glycol (Miralax) 17 gm DAILYPRN PRN ORAL Constipation 08/17/18 09:28 09/15/18 13:44 Potassium Chloride (K-Dur) 20 meq DAILY ORAL 08/16/18 09:00 09/15/18 08:59 08/17/18 09:27 Sennosides (Senokot) 1 tab DAILYPRN PRN ORAL Constipation 08/17/18 09:30 09/16/18 09:29 Vancomycin HCl (Vanco rx to dose) 1 ea DAILY PRN MISC Per rx protocol 08/17/18 12:45 09/16/18 12:44 Antione Lema MD Aug 17, 2018 18:58
[2018-08-17 20:00] VITALS: BP 136/55
[2018-08-17] MEDS: cefTRIAXone 1 GM in D5W 55 ML IVPB SCH (20:28)
[2018-08-17] MEDS: Levemir Flexpen SUBQ SCH (20:43)
[2018-08-18] VITALS: BP 131/60
[2018-08-18] MEDS: Milk of Magnesia 30ml Ud ORAL PRN (00:55)
[2018-08-18 04:00] VITALS: BP 133/67
--- NOTE | 2018-08-18 04:30 | Consultation ---
DATE OF CONSULTATION: 08/17/2018 INFECTIOUS DISEASE CONSULTATION CONSULTING PHYSICIAN: Antione Lema M.D. ATTENDING PHYSICIAN: Abbey Lozano M.D. REFERRING PHYSICIAN: Abbey Lozano M.D. REASON FOR CONSULTATION: Gram-positive bacteremia, sepsis, leukocytosis, possible UTI, possible community-acquired pneumonia, and respiratory infection. CHIEF COMPLAINT: The patient's chief complaint coming in the hospital is pneumonia. HISTORY OF PRESENT ILLNESS: This is a very pleasant 83-year-old female who comes into [facility] with congestion and shortness of breath. Clinically, the patient looks like she could have pneumonia. Chest x-ray initially showed scarring and pulmonary vascular congestion; however, followup chest x-ray has been ordered. The patient is complaining of cough and congestion. Workup shows the patient has positive blood cultures in both sets, gram-positive cocci and clusters. Infectious Disease consultation is requested for the possible bacteremia and in addition leukocytosis and possibly sepsis, in addition to possibly pneumonia. The patient currently is on vancomycin and Rocephin. MAR was noted. Orders were noted. Notes were reviewed. Case was communicated with Dr. Lozano and the patient. The patient will continue on vancomycin and Rocephin for now. REVIEW OF SYSTEMS: CONSTITUTIONAL: She has generalized fatigue. No new focal weakness. She has no fever, chills, night sweats, or weight loss. HEAD AND NECK: No head pain, neck pain, thrush, dysphagia, or sinus tenderness. CARDIAC: No chest pain or palpitations. PULMONARY: She has cough and congestion. Yellow-green sputum production. EXTREMITIES: No extremity pain. GASTROINTESTINAL: No nausea, vomiting, or diarrhea. GENITOURINARY: No dysuria or frequency. SKIN: No rash or itching. NEUROLOGIC: No seizures. PAST MEDICAL HISTORY: The patient's past medical history includes the history of following. The patient has a past medical history of diabetes type 2, uncontrolled; history of morbid obesity; history of COPD; history of degenerative joint disease, history of psychiatric disease, history of diastolic heart failure, history of pacemaker, history of diabetic nephropathy, history of blindness, history of noncompliance with medications; history of cardiac disease; history of hypertension; and history of tremors, vertigo, and fatigue. ALLERGIES: Include azithromycin. No penicillin allergy. FAMILY HISTORY: Noncontributory. Negative for exposure to tuberculosis or cancer. SOCIAL HISTORY: Negative for smoking, alcohol, or drug abuse. MEDICATIONS: Upon reviewing the MAR, she is on the following medications. She is on vancomycin and Rocephin. She is on Senokot, , MiraLAX, Levemir, Klonopin, and Remeron. She is on IV fluids, carvedilol, furosemide, aspirin, heparin, insulin, cough syrup, and albuterol treatments. Antibiotics, vancomycin and Rocephin. Outside medications noted and reconciliated. PHYSICAL EXAMINATION: VITAL SIGNS: Temperature is 97.3, pulse rate is 62, respiratory rate is 20, blood pressure 128/89, and saturation is 96% on 2 L nasal cannula. GENERAL: The patient is alert, responsive, and oriented x3, no acute distress. HEAD AND NECK: Oral exam, no thrush. Eye exam, no icterus. Neck is supple. No JVD. Normocephalic. HEART: Regular. No gallop or murmur. No friction rub. ABDOMEN: Soft. Positive bowel sounds. Nontender. LUNGS: Few bilateral rhonchi. Possible rales at bases. SKIN: No rash or dermatitis. MUSCULOSKELETAL: No effusion. Legs are without cellulitis. PERIPHERAL VASCULAR: No cyanosis or gangrene. Possible edema in the legs. GENITOURINARY: No Boles. No CVA tenderness. LINE SITES: Without phlebitis. NEUROLOGIC: Intact. Nonfocal. Alert and oriented x3. LABORATORY DATA: Creatinine 1.3. LFTs were noted. White count 15.4 and hemoglobin 12.9. UA had positive nitrite, 1+ leukocyte esterase, 0-2 white blood cells, and many bacteria. Urine culture is mixed. Blood cultures, both bottle sets, the patient had Gram-positive cocci and clusters. Identification is pending. IMAGING STUDIES: Chest x-ray showed opacity in the right perihilar area, scar versus infiltrate and congestive changes noted and reviewed. Report was noted also. ASSESSMENT AND PLAN: 1. The patient has possible gram-positive bacteremia, sepsis, and elevated white count. The patient also has possible community-acquired pneumonia and possible UTI. She has positive UA. She has upper respiratory infection and bronchitis. Continue vancomycin and Rocephin to cover Staph aureus including MRSA, Streptococcus pathogens, community-acquired pneumonia, and UTI. Pathogens including gram-negatives, gram-positives, and Streptococcus pneumoniae. Continue vancomycin and Rocephin for gram-positive bacteremia, sepsis, possible UTI, possible pneumonia and urinary tract infection. Check culture results including blood cultures. Check surveillance blood cultures. Check labs. Check identification of blood cultures. Check followup chest x-ray. Continue vancomycin and Rocephin. Pending workup for now. 2. The patient has a history of diabetes mellitus, type 2. 3. Hypertension. 4. Blood sugar and blood pressure treatment for diabetes and hypertension per primary. 5. Obesity. 6. COPD. 7. Degenerative joint disease. 8. Psychiatric disease. 9. Diastolic heart failure. 10. History of pacemaker. 11. Diabetic nephropathy. 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 13. Noncompliance. 14. History of fatigue. 15. Past medical history is noted. 16. Allergic to azithromycin. 17. Family history noncontributory. 18. Social history is negative. 19. MAR was noted. 20. Case was discussed with RN. 21. Continue treatment per primary consultants. 22. Case communicated with Dr. Lozano. 23. Notes and records were noted. 24. Orders were noted and entered. Antione Lema M.D. DR: CHELSEA JOB#: [id number] CC:
[2018-08-18] MEDS: NovoLOG Insulin Flexpen SUBQ SCH ×4 (06:27→21:48)
[2018-08-18 07:03] LABS: BASOPHILS % (AUTO) 0.9 % (0.0-2.0); EOSINOPHILS % (AUTO) 1.8 % (0.0-3.0); HEMATOCRIT 39.6 % (37.0-47.0); HEMOGLOBIN 11.8 G/DL (12.0-16.0); LYMPHOCYTES % (AUTO) 20.8 % (20.0-45.0); MEAN CORPUSCULAR VOLUME 76 FL (80-99); MONOCYTES % (AUTO) 8.3 % (1.0-10.0); NEUTROPHILS % (AUTO) 68.2 % (45.0-75.0); PLATELET COUNT 221 K/UL (150-450); RED BLOOD COUNT 5.19 M/UL (4.20-5.40); WHITE BLOOD COUNT 8.1 K/UL (4.8-10.8)
[2018-08-18 07:26] LABS: ANION GAP 3 mmol/L (5-15); BLOOD UREA NITROGEN 35 mg/dL (7-18); CALCIUM 9.9 MG/DL (8.5-10.1); CARBON DIOXIDE 30 MMOL/L (21-32); CHLORIDE 106 MMOL/L (98-107); CREATININE 1.1 MG/DL (0.55-1.30); POTASSIUM 4.7 MMOL/L (3.5-5.1); SODIUM 139 MMOL/L (136-145)
[2018-08-18 08:00] VITALS: BP 139/73
[2018-08-18] MEDS: Aspirin EC 81mg tab ORAL SCH (09:42)
[2018-08-18] MEDS: Carvedilol 12.5mg tab ORAL SCH (09:43)
[2018-08-18] MEDS: Heparin 5000 units/ml inj SUBQ SCH ×2 (09:44→21:45)
--- NOTE | 2018-08-18 10:19 | Diagnostic Imaging Report ---
Indication: Shortness of breath Technique: One view of the chest Comparison: 08/15/2018 Findings: There is blunting of the right costophrenic sulcus and questionably left costophrenic sulcus, likely reflecting a small amount of pleural fluid, not definitely evident previously. Band of atelectasis or scarring is again seen in the right perihilar region. Left chest pacemaker is again noted. The heart is upper limits normal in size.. Lungs appear less congested Impression: Evidence of new small bilateral pleural effusions. Improved interstitial congestion, over 3 days
[2018-08-18] MEDS: Vancomycin 750mg/NS 250ml IVPB SCH ×2 (10:34→21:44)
[2018-08-18 12:00] VITALS: BP 146/66
--- NOTE | 2018-08-18 12:30 | General Progress Note ---
Assessment/Plan Problem List: (1) Major depression ICD Codes: F32.9 - Major depressive disorder, single episode, unspecified SNOMED: 613404506 (2) Anxiety disorder ICD Codes: F41.9 - Anxiety disorder, unspecified SNOMED: 342184213 Status: stable, progressing Assessment/Plan cont remeron 7.5 mg qhs provided ro/st Subjective Date patient seen: Aug 18, 2018 Neurologic/Psychiatric: Reports: anxiety, depressed Allergies: Coded Allergies: AZITHROMYCIN (Verified Allergy, Intermediate, ITCHINESS, 10/15/13) QUESTIONABLE ALLERGIC RXN BUT PT STARTED ITCHING AFTER BEING GIVEN A DOSE BUT PT NOT SURE Subjective the pt is doing no anxiety today. Objective Last 24 Hour Vital Signs Date Time Temp Pulse Resp B/P (MAP) Pulse Ox O2 Delivery O2 Flow Rate FiO2 08/18/18 09:43 60 139/73 08/18/18 09:00 Nasal Cannula 2.0 08/18/18 08:00 97.5 60 21 139/73 (95) 98 97.5 08/18/18 07:48 60 18 Nasal Cannula 1.0 24 08/18/18 04:00 98.1 69 20 133/67 (89) 93 98.1 08/18/18 03:38 64 08/18/18 00:00 98.1 65 20 131/60 (83) 94 98.1 08/17/18 23:44 60 08/17/18 21:00 Nasal Cannula 2.0 08/17/18 20:00 97.2 61 20 136/55 (82) 96 97.2 08/17/18 20:00 60 08/17/18 16:00 97.3 62 20 128/89 (102) 96 97.3 08/17/18 16:00 61 Intake and Output 08/17/18 08/18/18 19:00 07:00 Intake Total 360 ml 55 ml Output Total 550 ml Balance -190 ml 55 ml Intake Oral 360 ml IV Total 55 ml Output Urine Total 550 ml # Voids 3 Laboratory Tests 08/18/18 05:35: White Blood Count 8.1, Red Blood Count 5.19, Hemoglobin 11.8L, Hematocrit 39.6, Mean Corpuscular Volume 76L, Mean Corpuscular Hemoglobin 22.8L, Mean Corpuscular Hemoglobin Concent 29.9L, Red Cell Distribution Width 12.0, Platelet Count 221, Mean Platelet Volume 7.2, Neutrophils (%) (Auto) 68.2, Lymphocytes (%) (Auto) 20.8, Monocytes (%) (Auto) 8.3, Eosinophils (%) (Auto) 1.8, Basophils (%) (Auto) 0.9, Sodium Level 139, Potassium Level 4.7, Chloride Level 106, Carbon Dioxide Level 30, Anion Gap 3L, Blood Urea Nitrogen 35H, Creatinine 1.1, Estimat Glomerular Filtration Rate , Glucose Level 143H, Calcium Level 9.9, Random Vancomycin Level 7.8 Height (Feet): 5 Height (Inches): 4.00 Weight (Pounds): 303 General Appearance: no apparent distress, alert, obese Neurologic: oriented x 3, responsive Sonny Diaz MD Aug 18, 2018 12:30
--- NOTE | 2018-08-18 13:38 | General Progress Note ---
Assessment/Plan Assessment/Plan Pneumonia - IV Abx. Uncontrolled AODM. Patient is blind and unble to control her BG. Refusing SNF. 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 Asked patient to follow in my office to get CGM (continuous glucose monitoring 72 hours). CXR CW CHF more than pneumonia. BC Staph epi contaminant? Continue current Rx. Subjective Allergies: Coded Allergies: AZITHROMYCIN (Verified Allergy, Intermediate, ITCHINESS, 10/15/13) QUESTIONABLE ALLERGIC RXN BUT PT STARTED ITCHING AFTER BEING GIVEN A DOSE BUT PT NOT SURE Subjective Still c/o constipation! C/o yellow productive cough! Objective Last 24 Hour Vital Signs Date Time Temp Pulse Resp B/P (MAP) Pulse Ox O2 Delivery O2 Flow Rate FiO2 08/18/18 12:00 97.7 60 20 146/66 (92) 98 97.7 08/18/18 12:00 60 08/18/18 09:43 60 139/73 08/18/18 09:00 Nasal Cannula 2.0 08/18/18 08:00 60 08/18/18 08:00 97.5 60 21 139/73 (95) 98 97.5 08/18/18 07:48 60 18 Nasal Cannula 1.0 24 08/18/18 04:00 98.1 69 20 133/67 (89) 93 98.1 08/18/18 03:38 64 08/18/18 00:00 98.1 65 20 131/60 (83) 94 98.1 08/17/18 23:44 60 08/17/18 21:00 Nasal Cannula 2.0 08/17/18 20:00 97.2 61 20 136/55 (82) 96 97.2 08/17/18 20:00 60 08/17/18 16:00 97.3 62 20 128/89 (102) 96 97.3 08/17/18 16:00 61 Intake and Output 08/17/18 08/18/18 19:00 07:00 Intake Total 360 ml 55 ml Output Total 550 ml Balance -190 ml 55 ml Intake Oral 360 ml IV Total 55 ml Output Urine Total 550 ml # Voids 3 Laboratory Tests 08/18/18 05:35: White Blood Count 8.1, Red Blood Count 5.19, Hemoglobin 11.8L, Hematocrit 39.6, Mean Corpuscular Volume 76L, Mean Corpuscular Hemoglobin 22.8L, Mean Corpuscular Hemoglobin Concent 29.9L, Red Cell Distribution Width 12.0, Platelet Count 221, Mean Platelet Volume 7.2, Neutrophils (%) (Auto) 68.2, Lymphocytes (%) (Auto) 20.8, Monocytes (%) (Auto) 8.3, Eosinophils (%) (Auto) 1.8, Basophils (%) (Auto) 0.9, Sodium Level 139, Potassium Level 4.7, Chloride Level 106, Carbon Dioxide Level 30, Anion Gap 3L, Blood Urea Nitrogen 35H, Creatinine 1.1, Estimat Glomerular Filtration Rate , Glucose Level 143H, Calcium Level 9.9, Random Vancomycin Level 7.8 Height (Feet): 5 Height (Inches): 4.00 Weight (Pounds): 303 Objective Blind Cv RR Lungs B ronchi Abd pendulous. SNT. BS + E No CCE Abbey Lozano MD Aug 18, 2018 13:38
[2018-08-18 16:00] VITALS: BP 135/80
--- NOTE | 2018-08-18 19:53 | Cardiology Report ---
APPROVED REPORT EKG Measurement Heart [id number] Sinus rhythm with non-conducted APC's. Minimal voltage criteria for LVH, may be normal variant Borderline ECG
[2018-08-18 20:00] VITALS: BP 155/67
[2018-08-18] MEDS: cefTRIAXone 1 GM in D5W 55 ML IVPB SCH (20:00)
[2018-08-18] MEDS: Levemir Flexpen SUBQ SCH (21:49)
[2018-08-19] VITALS: BP 151/76
[2018-08-19 04:00] VITALS: BP 149/80
[2018-08-19] MEDS: NovoLOG Insulin Flexpen SUBQ SCH ×4 (06:19→21:42)
[2018-08-19 08:00] VITALS: BP 148/71
[2018-08-19] MEDS: Aspirin EC 81mg tab ORAL SCH (09:57)
[2018-08-19] MEDS: Carvedilol 12.5mg tab ORAL SCH (09:58)
[2018-08-19] MEDS: Heparin 5000 units/ml inj SUBQ SCH ×2 (10:01→21:41)
[2018-08-19] MEDS: Vancomycin 750mg/NS 250ml IVPB SCH (10:03)
[2018-08-19 12:00] VITALS: BP 137/68
[2018-08-19 16:00] VITALS: BP 145/69
--- NOTE | 2018-08-19 16:31 | General Progress Note ---
Assessment/Plan Assessment/Plan Pneumonia - IV Abx. Resolving Uncontrolled AODM. Patient is blind and unble to control her BG. Refusing SNF. 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 Asked patient to follow in my office to get CGM (continuous glucose monitoring 72 hours). DC home tomorrow. Subjective Allergies: Coded Allergies: AZITHROMYCIN (Verified Allergy, Intermediate, ITCHINESS, 10/15/13) QUESTIONABLE ALLERGIC RXN BUT PT STARTED ITCHING AFTER BEING GIVEN A DOSE BUT PT NOT SURE Subjective Less SOB Objective Last 24 Hour Vital Signs Date Time Temp Pulse Resp B/P (MAP) Pulse Ox O2 Delivery O2 Flow Rate FiO2 08/19/18 12:00 97.5 72 20 137/68 (91) 98 97.5 08/19/18 12:00 67 08/19/18 09:58 65 158/61 08/19/18 09:00 Nasal Cannula 2.0 08/19/18 08:11 97 Nasal Cannula 1.0 24 08/19/18 08:11 66 20 Nasal Cannula 1.0 24 08/19/18 08:11 Nasal Cannula 1.0 24 08/19/18 08:00 78 08/19/18 08:00 97.6 62 20 148/71 (96) 96 97.6 08/19/18 04:00 62 08/19/18 04:00 97.4 70 19 149/80 (103) 96 97.4 08/19/18 00:00 64 08/19/18 00:00 96.6 63 22 151/76 (101) 95 96.6 08/18/18 21:00 Nasal Cannula 2.0 08/18/18 20:00 96.4 60 19 155/67 (96) 98 96.4 08/18/18 20:00 60 08/18/18 19:52 61 20 Nasal Cannula 1.0 24 Intake and Output 08/18/18 08/19/18 19:00 07:00 Intake Total 560 ml Balance 560 ml Intake Oral 560 ml # Voids 3 3 Height (Feet): 5 Height (Inches): 4.00 Weight (Pounds): 304 Objective Blind Cv RR Lungs CTA Abd pendulous. SNT. BS + E No VICE Abbey Lozano MD Aug 19, 2018 16:31
--- NOTE | 2018-08-19 17:57 | Infectious Diseases Prog Note ---
Assessment/Plan Assessment/Plan ASSESSMENT AND PLAN: 1. coag neg staph bacteremia, sepsis, ? cap, uri/bronchitis, leukocytosis - clinically improved - leukocytosis resolved, surveillance blood cultures negative, chest x-ray with pvc, no obvious infiltrate - no vegetation on echo mentioned, report noted - continue vancomycin and ceftriaxone - can transition to oral doxycycline x 7 days upon discharge 2. The patient has a history of diabetes mellitus, type 2. 3. Hypertension. 4. Blood sugar and blood pressure treatment for diabetes and hypertension per primary. 5. Obesity. 6. COPD. 7. Degenerative joint disease. 8. Psychiatric disease. 9. Diastolic heart failure. 10. History of pacemaker. 11. Diabetic nephropathy. 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 13. Noncompliance. 14. History of fatigue. 15. Past medical history is noted. 16. Allergic to azithromycin. 17. Family history noncontributory. 18. Social history is negative. 19. MAR was noted. 20. Case was discussed with RN. 21. Continue treatment per primary consultants. 22. Case communicated with Dr. Lozano. 23. Notes and records were noted. 24. Orders were noted and entered. Subjective Constitutional: Reports: fatigue; Denies: fever HEENT: Reports: congestion - less Respiratory: Reports: shortness of breath - less Gastrointestinal/Abdominal: Denies: nausea, vomiting, diarrhea Genitourinary: Reports: other - no bhakta Neurologic: Denies: headache Psychiatric: Denies: depression Skin: Denies: rash Hematologic: Denies: bleeding Musculoskeletal: Denies: pain Allergies: Coded Allergies: AZITHROMYCIN (Verified Allergy, Intermediate, ITCHINESS, 10/15/13) QUESTIONABLE ALLERGIC RXN BUT PT STARTED ITCHING AFTER BEING GIVEN A DOSE BUT PT NOT SURE Objective Vital Signs Last 24 Hour Vital Signs Date Time Temp Pulse Resp B/P (MAP) Pulse Ox O2 Delivery O2 Flow Rate FiO2 08/19/18 12:00 97.5 72 20 137/68 (91) 98 97.5 08/19/18 12:00 67 08/19/18 09:58 65 158/61 08/19/18 09:00 Nasal Cannula 2.0 08/19/18 08:11 97 Nasal Cannula 1.0 24 08/19/18 08:11 66 20 Nasal Cannula 1.0 24 08/19/18 08:11 Nasal Cannula 1.0 24 08/19/18 08:00 78 08/19/18 08:00 97.6 62 20 148/71 (96) 96 97.6 08/19/18 04:00 62 08/19/18 04:00 97.4 70 19 149/80 (103) 96 97.4 08/19/18 00:00 64 08/19/18 00:00 96.6 63 22 151/76 (101) 95 96.6 08/18/18 21:00 Nasal Cannula 2.0 08/18/18 20:00 96.4 60 19 155/67 (96) 98 96.4 08/18/18 20:00 60 08/18/18 19:52 61 20 Nasal Cannula 1.0 24 Height (Feet): 5 Height (Inches): 4.00 Weight (Pounds): 304 General Appearance: no acute distress HEENT: normocephalic, atraumatic, anicteric, mucous membranes moist Respiratory/Chest: lungs clear, normal breath sounds, no respiratory distress, no accessory muscle use, crackles/rales - less, rhonchi - bilaterally - less Cardiovascular: normal rate, regular rhythm, no gallop/murmur, no JVD Abdomen: normal bowel sounds, soft, non tender, no organomegaly, non distended Genitourinary: other - no bhakta, no cva pain Extremities: no cyanosis Skin: no rash Neurologic/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 Band of atelectasis or scarring is again seen in the right perihilar region. Left chest pacemaker is again noted. The heart is upper limits normal in size.. Lungs appear less congested Impression: Evidence of new small bilateral pleural effusions. Improved interstitial congestion, over 3 days Microbiology Date/Time Source Procedure Growth Status 08/17/18 20:45 Blood Blood Culture - Preliminary NO GROWTH AFTER 24 HOURS Resulted 08/15/18 21:00 Nasal Nares MRSA Culture - Final NO METHICILLIN RESISTANT STAPH AUREUS... Complete 08/15/18 21:30 Urine,Clean Catch Urine Culture - Final Mixed Gram Positive Organism Complete 08/15/18 21:00 Rectum VRE Culture - Final NO VANCOMYCIN RESISTANT ENTEROCOCCUS ... Complete Microbiology Date/Time Source Procedure Growth Status 08/17/18 20:45 Blood Blood Culture - Preliminary NO GROWTH AFTER 24 HOURS Resulted 08/17/18 20:45 Blood Blood Culture - Preliminary NO GROWTH AFTER 24 HOURS Resulted Labs Test 08/18/18 05:35 White Blood Count 8.1 K/UL (4.8-10.8) Red Blood Count 5.19 M/UL (4.20-5.40) Hemoglobin 11.8 G/DL (12.0-16.0) Hematocrit 39.6 % (37.0-47.0) Mean Corpuscular Volume 76 FL (80-99) Mean Corpuscular Hemoglobin 22.8 PG (27.0-31.0) Mean Corpuscular Hemoglobin Concent 29.9 G/DL (32.0-36.0) Red Cell Distribution Width 12.0 % (11.6-14.8) Platelet Count 221 K/UL (150-450) Mean Platelet Volume 7.2 FL (6.5-10.1) Neutrophils (%) (Auto) 68.2 % (45.0-75.0) Lymphocytes (%) (Auto) 20.8 % (20.0-45.0) Monocytes (%) (Auto) 8.3 % (1.0-10.0) Eosinophils (%) (Auto) 1.8 % (0.0-3.0) Basophils (%) (Auto) 0.9 % (0.0-2.0) Sodium Level 139 MMOL/L (136-145) Potassium Level 4.7 MMOL/L (3.5-5.1) Chloride Level 106 MMOL/L (98-107) Carbon Dioxide Level 30 MMOL/L (21-32) Anion Gap 3 mmol/L (5-15) Blood Urea Nitrogen 35 mg/dL (7-18) Creatinine 1.1 MG/DL (0.55-1.30) Estimat Glomerular Filtration Rate mL/min (>60) Glucose Level 143 MG/DL (74-106) Calcium Level 9.9 MG/DL (8.5-10.1) Random Vancomycin Level 7.8 ug/mL Current Medications Medications (Trade) Dose Ordered Sig/[place]ider Route PRN Reason Start Time Stop Time Status Last Admin Dose Admin Acetaminophen (Tylenol) 500 mg DAILY PRN ORAL Mild Pain (Pain Scale 1-3) 08/16/18 00:45 09/15/18 00:44 Albuterol/ Ipratropium (Albuterol/ Ipratropium) 3 ml Q4H PRN HHN Shortness of Breath 08/16/18 00:45 08/21/18 00:44 08/16/18 20:31 Aspirin (Ecotrin) 81 mg DAILY ORAL 08/16/18 09:00 09/15/18 08:59 08/19/18 09:57 Carvedilol (Coreg) 12.5 mg DAILY ORAL 08/16/18 09:00 09/15/18 08:59 08/19/18 09:58 Ceftriaxone Sodium 1 gm/ Dextrose 55 ml @ 110 mls/hr Q24H IVPB 08/16/18 20:00 08/23/18 19:59 08/18/18 20:00 Clonazepam (KlonoPIN) 1 mg BEDTIME ORAL 08/16/18 21:00 08/23/18 20:59 08/18/18 21:44 Dextrose (Dextrose 50%) 25 ml Q30M PRN IV Hypoglycemia 08/16/18 09:30 09/15/18 09:20 Dextrose (Dextrose 50%) 50 ml Q30M PRN IV hypoglycemia 08/16/18 09:30 09/15/18 09:29 Furosemide (Lasix) 20 mg DAILY ORAL 08/16/18 09:00 09/15/18 08:59 08/19/18 09:58 Guaifenesin/ Codeine Phosphate (Robitussin with codeine) 5 ml Q6H PRN ORAL For Cough 08/16/18 00:45 09/15/18 00:44 Heparin Sodium (Porcine) (Heparin 5000 units/ml) 5,000 units EVERY 12 HOURS SUBQ 08/16/18 09:00 09/15/18 08:59 08/19/18 10:01 Insulin Aspart (NovoLOG) BEFORE MEALS AND HS SUBQ 08/16/18 06:30 09/15/18 06:29 08/19/18 12:43 Insulin Detemir (Levemir) 12 units BEDTIME SUBQ 08/16/18 21:00 09/15/18 20:59 08/18/18 21:49 Magnesium Hydroxide (Mom) 30 ml HSPRN PRN ORAL Constipation 08/17/18 09:30 09/16/18 09:29 08/18/18 00:55 Mirtazapine (Remeron) 7.5 mg BEDTIME ORAL 08/16/18 21:00 09/15/18 20:59 08/18/18 21:44 Polyethylene Glycol (Miralax) 17 gm DAILYPRN PRN ORAL Constipation 08/17/18 09:28 09/15/18 13:44 Potassium Chloride (K-Dur) 20 meq DAILY ORAL 08/16/18 09:00 09/15/18 08:59 08/19/18 09:57 Sennosides (Senokot) 1 tab DAILYPRN PRN ORAL Constipation 08/17/18 09:30 09/16/18 09:29 Vancomycin HCl (Vanco rx to dose) 1 ea DAILY PRN MISC Per rx protocol 08/17/18 12:45 09/16/18 12:44 Vancomycin/Sodium Chloride 250 ml @ 166.667 mls/hr Q12H IVPB 08/18/18 09:00 08/23/18 08:59 08/19/18 10:03 Antione Lema MD Aug 19, 2018 17:57
[2018-08-19 20:00] VITALS: BP 150/65
[2018-08-19] MEDS: cefTRIAXone 1 GM in D5W 55 ML IVPB SCH (20:00)
[2018-08-19] MEDS: Levemir Flexpen SUBQ SCH (21:42)
[2018-08-19] MEDS: Vancomycin 1gm/D5W 275ml IVPB SCH ×2 (21:43)
--- NOTE | 2018-08-19 22:42 | General Progress Note ---
Assessment/Plan Problem List: (1) Major depression ICD Codes: F32.9 - Major depressive disorder, single episode, unspecified SNOMED: 945374727 (2) Anxiety disorder ICD Codes: F41.9 - Anxiety disorder, unspecified SNOMED: 805845660 Status: stable, progressing Assessment/Plan cont remeron 7.5 mg qhs provided ro/st Subjective Date patient seen: Aug 19, 2018 Neurologic/Psychiatric: Reports: anxiety, depressed, emotional problems Allergies: Coded Allergies: AZITHROMYCIN (Verified Allergy, Intermediate, ITCHINESS, 10/15/13) QUESTIONABLE ALLERGIC RXN BUT PT STARTED ITCHING AFTER BEING GIVEN A DOSE BUT PT NOT SURE Subjective the pt is doing well Objective Last 24 Hour Vital Signs Date Time Temp Pulse Resp B/P (MAP) Pulse Ox O2 Delivery O2 Flow Rate FiO2 08/19/18 20:00 97.7 69 18 150/65 (93) 95 97.7 08/19/18 19:45 95 Nasal Cannula 1.0 24 08/19/18 19:45 Nasal Cannula 1.0 24 08/19/18 19:44 69 18 Nasal Cannula 1.0 24 08/19/18 16:00 66 08/19/18 16:00 97.2 69 20 145/69 (94) 95 97.2 08/19/18 12:00 97.5 72 20 137/68 (91) 98 97.5 08/19/18 12:00 67 08/19/18 09:58 65 158/61 08/19/18 09:00 Nasal Cannula 2.0 08/19/18 08:11 97 Nasal Cannula 1.0 24 08/19/18 08:11 66 20 Nasal Cannula 1.0 24 08/19/18 08:11 Nasal Cannula 1.0 24 08/19/18 08:00 78 08/19/18 08:00 97.6 62 20 148/71 (96) 96 97.6 08/19/18 04:00 62 08/19/18 04:00 97.4 70 19 149/80 (103) 96 97.4 08/19/18 00:00 64 08/19/18 00:00 96.6 63 22 151/76 (101) 95 96.6 Intake and Output 08/18/18 08/19/18 19:00 07:00 Intake Total 560 ml Balance 560 ml Intake Oral 560 ml # Voids 3 3 Laboratory Tests 08/19/18 19:45: Vancomycin Level Trough 13.0H Height (Feet): 5 Height (Inches): 4.00 Weight (Pounds): 304 General Appearance: no apparent distress, alert Neurologic: oriented x 3, responsive, depressed affect Sonny Diaz MD Aug 19, 2018 22:41
[2018-08-20] VITALS: BP 152/63
[2018-08-20 04:00] VITALS: BP 142/54
[2018-08-20] MEDS: NovoLOG Insulin Flexpen SUBQ SCH ×3 (06:26→16:30)
[2018-08-20 08:00] VITALS: BP 135/66
[2018-08-20 08:01] LABS: BASOPHILS % (AUTO) 0.8 % (0.0-2.0); EOSINOPHILS % (AUTO) 3.8 % (0.0-3.0); HEMATOCRIT 41.5 % (37.0-47.0); HEMOGLOBIN 12.3 G/DL (12.0-16.0); LYMPHOCYTES % (AUTO) 22.3 % (20.0-45.0); MEAN CORPUSCULAR VOLUME 76 FL (80-99); MONOCYTES % (AUTO) 6.7 % (1.0-10.0); NEUTROPHILS % (AUTO) 66.4 % (45.0-75.0); PLATELET COUNT 218 K/UL (150-450); RED BLOOD COUNT 5.47 M/UL (4.20-5.40); RED CELL DISTRIBUTION WIDTH 11.7 % (11.6-14.8); WHITE BLOOD COUNT 7.1 K/UL (4.8-10.8)
[2018-08-20 08:12] LABS: ANION GAP 6 mmol/L (5-15); BLOOD UREA NITROGEN 24 mg/dL (7-18); CALCIUM 10.2 MG/DL (8.5-10.1); CARBON DIOXIDE 28 MMOL/L (21-32); CHLORIDE 105 MMOL/L (98-107); POTASSIUM 4.6 MMOL/L (3.5-5.1); SODIUM 139 MMOL/L (136-145)
[2018-08-20] MEDS: Carvedilol 12.5mg tab ORAL SCH (09:00)
[2018-08-20] MEDS: Aspirin EC 81mg tab ORAL SCH (09:20)
[2018-08-20] MEDS: Heparin 5000 units/ml inj SUBQ SCH (09:23)
[2018-08-20] MEDS: Vancomycin 1gm/D5W 275ml IVPB SCH ×2 (10:21)
--- NOTE | 2018-08-20 10:44 | General Progress Note ---
Assessment/Plan Assessment/Plan Pneumonia - IV Abx. Resolving Uncontrolled AODM. Patient is blind and unble to control her BG. Refusing SNF. 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 Asked patient to follow in my office to get CGM (continuous glucose monitoring 72 hours). Patient and family want DC to SNF [facility]. Also agreed with PCP Dr. Nighat Claire Subjective Allergies: Coded Allergies: AZITHROMYCIN (Verified Allergy, Intermediate, ITCHINESS, 10/15/13) QUESTIONABLE ALLERGIC RXN BUT PT STARTED ITCHING AFTER BEING GIVEN A DOSE BUT PT NOT SURE Subjective Less SOB Objective Last 24 Hour Vital Signs Date Time Temp Pulse Resp B/P (MAP) Pulse Ox O2 Delivery O2 Flow Rate FiO2 08/20/18 09:00 60 135/66 08/20/18 08:00 97.0 60 18 135/66 (89) 99 97.0 08/20/18 04:00 97.5 60 18 142/54 (83) 98 97.5 08/20/18 04:00 63 08/20/18 00:00 98.2 64 18 152/63 (92) 99 98.2 08/20/18 00:00 62 08/19/18 21:00 Nasal Cannula 2.0 08/19/18 20:00 97.7 69 18 150/65 (93) 95 97.7 08/19/18 20:00 66 08/19/18 19:45 95 Nasal Cannula 1.0 24 08/19/18 19:45 Nasal Cannula 1.0 24 08/19/18 19:44 69 18 Nasal Cannula 1.0 24 08/19/18 16:00 66 08/19/18 16:00 97.2 69 20 145/69 (94) 95 97.2 08/19/18 12:00 97.5 72 20 137/68 (91) 98 97.5 08/19/18 12:00 67 Intake and Output 08/19/18 08/20/18 19:00 07:00 Intake Total 900 ml Balance 900 ml Intake Oral 900 ml # Voids 3 Laboratory Tests 08/19/18 19:45: Vancomycin Level Trough 13.0H 08/20/18 06:30: White Blood Count 7.1, Red Blood Count 5.47H, Hemoglobin 12.3, Hematocrit 41.5, Mean Corpuscular Volume 76L, Mean Corpuscular Hemoglobin 22.4L, Mean Corpuscular Hemoglobin Concent 29.5L, Red Cell Distribution Width 11.7, Platelet Count 218, Mean Platelet Volume 6.3L, Neutrophils (%) (Auto) 66.4, Lymphocytes (%) (Auto) 22.3, Monocytes (%) (Auto) 6.7, Eosinophils (%) (Auto) 3.8H, Basophils (%) (Auto) 0.8, Sodium Level 139, Potassium Level 4.6, Chloride Level 105, Carbon Dioxide Level 28, Anion Gap 6, Blood Urea Nitrogen 24H, Creatinine 1.0, Estimat Glomerular Filtration Rate , Glucose Level 141H, Calcium Level 10.2H Height (Feet): 5 Height (Inches): 4.00 Weight (Pounds): 305 Objective Blind Cv RR Lungs CTA Abd pendulous. SNT. BS + E No CCE Abbey Lozano MD Aug 20, 2018 10:44
[2018-08-20 12:00] VITALS: BP 158/69
[2018-08-20 16:00] VITALS: BP 136/72
[2018-08-20] MEDS ORDERED: NS 275ml ONE (18:14)
[2018-08-20] MEDS ORDERED: Tubing IV Secondary IV ONE (18:14)
--- NOTE | 2018-08-24 11:43 | Discharge Summary ---
Discharge Summary Discharge Summary _ DATE OF ADMISSION: [] 08/15/2018 DATE OF DISCHARGE: 2017 REASON FOR ADMISSION: 83 years old female with past medical history of poorly controlled diabetes mellitus type 2, COPD, degenerative joint disease, morbid obesity, diastolic heart failure, status post pacemaker, diabetic nephropathy and diabetic retinopathy, psychiatric disorder, noncompliance with medication, presented with complaint of productive cough and wheezing over the past 3-4 days prior to admission. Upon evaluation vital signs were stable. Laboratory workup revealed leukocytosis WBC 15.4 BUN 24 creatinine 1.3. Chest x-ray revealed mild interstitial congestion., probable infiltrate. Pro BNP 751. Patient admitted with diagnoses of pneumonia, COPD exacerbation, type 2 diabetes mellitus ,uncontrolled; morbid obesity, degenerative joint disease, psychiatric disorder, diastolic heart failure, status post pacemaker, diabetic nephropathy, blindness due to diabetic retinopathy, noncompliance with medication. CONSULTANTS: ID specialist psychiatrist [facility] COURSE: Patient admitted to telemetry floor. Patient started on empiric antibiotics. Infectious disease specialist closely followed . Initial blood culture revealed Staphylococcus hominis, repeated blood culture on 08/17 were negative. Urine culture revealed mixed gram-positive organisms. Patient was on IV antibiotics ,while in the hospital ,and transitioned to oral antibiotics to complete the course at the facility. Echocardiogram revealed no evidence of vegetation. Echocardiogram demonstrated preserved ejection fraction of 60-65% and right ventricular systolic pressure of 16. Blood sugar was managed with long-acting Levemir and sliding scale of short acting insulin as needed. Hemoglobin A1c 8.3, not at goal. Patient needs further optimization of anti-glycemic regimen as outpatient. Supplemental oxygen provided as needed to keep pulse oximetry above 92%. Pulmonary toilet with bronchodilators provided. Patient received initial steroid dose in the emergency department. Prior to discharge pulse oximetry was stable on room air. Antiplatelet therapy with aspirin continued. Blood pressure was managed with beta tita. Maintenance dose of Lasix was continued. Volumes and cardiorenal parameters were closely monitored . Electrolytes were corrected as needed. Nephrotoxins were avoided as possible. Prior to discharge creatinine from 1.3 down to 1.0. DVT and GI prophylaxis provided. Pain management was addressed as needed. Bowel regimen instituted. Psychiatrist seen and evaluated patient and diagnosed patient with major depression and anxiety disorder. Reality orientation and supportive therapy provided. Psychiatric medication regimen optimized. Family requested placement patient to shelter facility. Placement was found and secured . Patient clinically stabilized and was ready for transfer to shelter facility for continuation of care. FINAL DIAGNOSES: Possible sepsis Bacteremia with Staphylococcus coagulase negative Likely pneumonia COPD exacerbation Diabetes mellitus type 2, out of control Morbid obesity Diastolic congestive heart failure Degenerative joint disease Diabetic nephropathy Blindness , secondary to diabetic retinopathy Status post pacemaker Noncompliance Major depression Anxiety disorder DISCHARGE MEDICATIONS: See Medication Reconciliation list. DISCHARGE INSTRUCTIONS: Patient was discharged to the shelter facility. Follow up with medical doctor at the facility. Patient will need 72 hours glucose monitoring as outpatient to stratify treatment in attempt to halt diabetic nephropathy. I have been assigned to dictate discharge summary for this account. I was not involved in the patient's management. Brigida Richards NP Aug 24, 2018 11:43
== END 2018-08-20 18:15 | DRG 871 ==
LOC: EMR 19:28 → EDBEDREQ 20:08 → 2E 20:22
DX: A41.1 Sepsis due to other specified staphylococcus (principal); J18.9 Pneumonia, unspecified organism; I50.30 Unspecified diastolic (congestive) heart failure; J44.1 Chronic obstructive pulmonary disease with (acute) exacerbation; Z68.43 Body mass index [BMI] 50.0-59.9, adult; I11.0 Hypertensive heart disease with heart failure; E66.01 Morbid (severe) obesity due to excess calories; Z95.0 Presence of cardiac pacemaker; M19.90 Unspecified osteoarthritis, unspecified site; E11.21 Type 2 diabetes mellitus with diabetic nephropathy; E11.319 Type 2 diabetes mellitus with unspecified diabetic retinopathy without macular edema; Z88.1 Allergy status to other antibiotic agents; E11.65 Type 2 diabetes mellitus with hyperglycemia; F99 Mental disorder, not otherwise specified; Z91.14 Patient's other noncompliance with medication regimen; I10 Essential (primary) hypertension; F32.9 Major depressive disorder, single episode, unspecified; F41.9 Anxiety disorder, unspecified; H54.7 Unspecified visual loss
CPT/HCPCS: 36415; 71045; 80048; 80053; 80202; 81003; 82550; 82962; 83036; 83605; 83735; 83880; 84484; 85025; 85610; 85730; 87040; 87081; 87086; 87181; 93005; 93306; 94640; 94664; 94760; 96365; 96366; 96375; 99285; J1815; J2405; J7620; J8499; S5561

== ENCOUNTER 2018-10-13 12:52 | Inpatient (IN) | payer MEDICARE, MEDICAID ==
[~2018-10-13] VITALS: Ht 165.1 cm; Wt 132.9 kg
[~2018-10-13 12:52] MED LIST changes: +CARVEDILOL12.5 MG ORAL; +GUAIFENESIN-CO118 M1 ORAL; +SIMBRINZA 1%-0.28 ML OP
[2018-10-13] MEDS ORDERED: DUONEB 0.5-3(2.53 ML HHN (13:07)
--- NOTE | 2018-10-13 13:22 | Emergency Room Report ---
History of Present Illness General Chief Complaint: Dyspnea/Respdistress Source: Patient Present Illness HPI 83F c/o about one week RLQ pain. It is not better or worse, just constantly present, from mild-moderate, like an ache. No diarrhea. +urinary frequency. She also c/o mild sob (not that different than her baseline.) She thinks she is out of her inhaler. No fever, no chest pain. Last hospitalized for one week about two months ago. poorly controlled diabetes mellitus type 2, COPD, degenerative joint disease, morbid obesity, diastolic heart failure, status post pacemaker, diabetic nephropathy and diabetic retinopathy, psychiatric disorder, noncompliance with medication possible sepsis Allergies: Coded Allergies: AZITHROMYCIN (Verified Allergy, Intermediate, ITCHINESS, 10/15/13) QUESTIONABLE ALLERGIC RXN BUT PT STARTED ITCHING AFTER BEING GIVEN A DOSE BUT PT NOT SURE Patient History Now: No Nursing Documentation-PMH Hx Cardiac Problems: Yes Hx Hypertension: Yes Hx Pacemaker: Yes - left upper chest Hx Asthma: Yes Hx COPD: Yes Hx Diabetes: Yes Hx Cancer: No Hx Gastrointestinal Problems: No Hx Neurological Problems: No Hx Tremors: Yes Hx Vertigo: Yes Hx Dizziness: Yes Hx Syncope: Yes Hx Headaches: Yes Hx Weakness: Yes Hx Fatigue: Yes Review of Systems Constitutional: Reports: see HPI Respiratory: Reports: see HPI Gastrointestinal: Reports: see HPI, abdominal pain, constipation - chronic but had bm today All Other Systems: limited Physical Exam Vital Signs Date Time Temp Pulse Resp B/P (MAP) Pulse Ox O2 Delivery O2 Flow Rate FiO2 10/13/18 13:03 98.6 60 22 171/55 100 Room Air General Appearance: well appearing, no apparent distress, obese - morbid Head: normocephalic, atraumatic ENT: hearing grossly normal, normal voice Neck: full range of motion, supple Respiratory: chest non-tender, lungs clear, normal breath sounds, no respiratory distress, speaking full sentences Cardiovascular #1: regular rate, rhythm, no edema - 1+ pedal/leg edema Musculoskeletal: no calf tenderness Neurologic: alert, oriented x3, normal gait Psychiatric: mood/affect normal Skin: no rash Medical Decision Making Diagnostic Impression: Primary Impression: Abdominal pain ER Course I have asked Dr. Bassett to assume care. EKG Diagnostic Results EKG Time: 13:10 EP Interpretation: atrial pacer vent rate 60; LVH, NSST Rhythm Strip Diag. Results Rhythm Strip Time: 13:10 EP Interpretation: yes Rate: 60 Rhythm: NSR Last Vital Signs Date Time Temp Pulse Resp B/P (MAP) Pulse Ox O2 Delivery O2 Flow Rate FiO2 10/13/18 13:03 98.6 60 22 171/55 100 Room Air Disposition: ADMITTED INPATIENT Condition: Serious Scripts Albuterol Sulfate* (ALBUTEROL SULFATE MDI*) 8.5 Gm Hfa.aer.ad 2 PUFF INH Q4H PRN for cough/wheezing, #1 EA 0 Refills Prov: Natanael Yeboah M.D. 10/13/18 Natanael Yeboah M.D. Oct 13, 2018 13:22
[2018-10-13] MEDS ORDERED: ALBUTEROL SULF8.5 GM INH (13:25)
[2018-10-13] MEDS ORDERED: Albuterol ud Inhalation HHN ONE (13:30)
[2018-10-13 14:02] LABS: BASOPHILS % (AUTO) 0.7 % (0.0-2.0); EOSINOPHILS % (AUTO) 3.1 % (0.0-3.0); HEMATOCRIT 43.4 % (37.0-47.0); HEMOGLOBIN 12.9 G/DL (12.0-16.0); LYMPHOCYTES % (AUTO) 22.1 % (20.0-45.0); MEAN CORPUSCULAR VOLUME 75 FL (80-99); MONOCYTES % (AUTO) 7.5 % (1.0-10.0); NEUTROPHILS % (AUTO) 66.6 % (45.0-75.0); PLATELET COUNT 227 K/UL (150-450); RED BLOOD COUNT 5.81 M/UL (4.20-5.40); RED CELL DISTRIBUTION WIDTH 11.9 % (11.6-14.8); WHITE BLOOD COUNT 6.7 K/UL (4.8-10.8)
[2018-10-13 14:12] LABS: ANION GAP 7 mmol/L (5-15); BLOOD UREA NITROGEN 32 mg/dL (7-18); CARBON DIOXIDE 28 MMOL/L (21-32); CHLORIDE 104 MMOL/L (98-107); CREATININE 1.2 MG/DL (0.55-1.30); POTASSIUM 4.5 MMOL/L (3.5-5.1); SODIUM 139 MMOL/L (136-145)
[2018-10-13 14:16] LABS: ALANINE AMINOTRANSFERASE 20 U/L (12-78); ALBUMIN/GLOBULIN RATIO 0.6 (1.0-2.7); ALKALINE PHOSPHATASE 105 U/L (46-116); ASPARTATE AMINO TRANSFERASE 14 U/L (15-37); BILIRUBIN,TOTAL 0.2 MG/DL (0.2-1.0)
[2018-10-13] MEDS ORDERED: cloNIDine 0.2mg Tab ORAL ONE (17:00)
[2018-10-13 18:15] VITALS: BP 176/67
[2018-10-13] MEDS ORDERED: Labetalol 5mg/ml 20ml vial IV ONE (19:00)
[2018-10-13 19:15] VITALS: BP 117/63
[2018-10-13 20:00] VITALS: BP 118/68
[2018-10-13] MEDS ORDERED: Norco 5mg/325mg tab ORAL PRN (20:45)
[2018-10-13] MEDS ORDERED: guaiFENesin w/Codeine 5ml Liq ud ORAL PRN (20:45)
[2018-10-13] MEDS ORDERED: Acetaminophen 500mg (ES) tab ORAL PRN (20:45)
[2018-10-13] MEDS: Heparin 5000 units/ml inj SUBQ SCH (22:13)
[2018-10-13] MEDS: NovoLOG Insulin Flexpen SUBQ SCH (22:14)
[2018-10-14] VITALS: BP 147/82
[2018-10-14 04:00] VITALS: BP 138/83
[2018-10-14] MEDS: NovoLOG Insulin Flexpen SUBQ SCH ×7 (05:57→21:18)
[2018-10-14 08:00] VITALS: BP 108/53
[2018-10-14] MEDS: Aspirin EC 81mg tab ORAL SCH (09:16)
[2018-10-14] MEDS: Carvedilol 12.5mg tab ORAL SCH (09:17)
[2018-10-14] MEDS: Heparin 5000 units/ml inj SUBQ SCH ×2 (09:17→21:18)
--- NOTE | 2018-10-14 09:58 | Diagnostic Imaging Report ---
Indication: Abdominal pain Technique: Spiral acquisitions obtained through the abdomen and pelvis. No oral contrast utilized, per emergency room physician request No IV contrast utilized, per referring physician request.. Multiplanar reconstructions were generated. Total dose length product 986.99 mGycm. CTDIvol(s) 19.51 mGy. Dose reduction achieved using automated exposure control Comparison: 10/03/2015 Findings: Normal appendix. No evidence of diverticulosis or diverticulitis. A very slight degree of fat stranding adjacent to the distal sigmoid is most likely secondary to prior pelvic surgery and is evident previously. No small bowel distention. No free or loculated intraperitoneal gas or fluid is evident. There is a small sliding-type hiatal hernia again demonstrated. The stomach is otherwise unremarkable. The duodenum is unremarkable. The gallbladder is absent, presumably postsurgically. Lack of IV contrast limits assessment of the solid organs. The liver, bile ducts, pancreas, spleen, adrenals, right kidney are unremarkable. The left kidney again demonstrates a lower pole simple cyst. The uterus is absent, presumably postsurgically. No pelvic mass or adenopathy. No retroperitoneal or mesenteric mass or adenopathy. There is what may be a surgical staple line again demonstrated at the left lung base. Bronchiectatic changes are seen at the left lung base. An 11 mm well-circumscribed nodule abutting the left hemidiaphragm is unchanged. Some scarring along the inferior right major fissure is slightly increased from prior exam. Previously demonstrated subpleural opacity in the right is no longer evident. The bones demonstrate degenerative spondylosis changes. There are degenerative changes of the bilateral hips. A presumed bone island is seen in the left femoral head. Impression: No acute abnormality Left basilar 11 mm lung nodule, stable since prior study as well as earlier exam. This appears just be some focal pleural fat on the coronal images. No further follow-up necessary Evidence of prior cholecystectomy and hysterectomy Evidence of prior left lung surgery and post inflammatory changes Other findings as noted, including degenerative spondylosis, bilateral hip degenerative changes, left lower pole renal cyst, small sliding-type hiatal hernia This agrees with the preliminary interpretation provided overnight by Dr. Richards The CT scanner at [facility] is accredited by the [employer] and the scans are performed using protocols designed to limit radiation exposure to as low as reasonably achievable to attain images of sufficient resolution adequate for diagnostic evaluation.
[2018-10-14 12:00] VITALS: BP 149/28
[2018-10-14 16:00] VITALS: BP 106/64
--- NOTE | 2018-10-14 19:00 | History and Physical Report ---
DATE OF ADMISSION: 10/13/2018 CHIEF COMPLAINT: Shortness of breath and right lower quadrant pain. HISTORY OF PRESENT ILLNESS: This is an unfortunate 83-year-old female, who has no real primary care followup. The patient's primary care physician is not seeing the patient regularly. The patient has very poor social support and due to her blindness she is not very mobile. The patient has poorly control diabetes. So my knowledge taking care of her in the hospital as well as in the office, the patient's blood sugars are between 300 to 400. PAST MEDICAL HISTORY: 1. Ravaging type 2 diabetes mellitus. 2. Advanced diabetic retinopathy which reached end stage. The patient is currently blind. She lost right eye vision. 3. Chronic obstructive pulmonary disease. 4. Degenerative joint disease. 5. Morbid obesity. 6. Diastolic heart failure. 7. Recently developing diabetic nephropathy. 8. Depression. 9. Noncompliance. HOME MEDICATIONS: I am not sure if the patient is taking any medications. Home medications are listed as Tylenol p.r.n., albuterol inhalation, baby aspirin, Simbrinza eye drops, Coreg, Lasix, Robitussin as needed, NovoLog 12 units subcutaneous three times daily, Lantus 12 units at bedtime, DuoNeb inhalation, Avapro, potassium chloride. ALLERGIES: To azithromycin. FAMILY HISTORY: Unremarkable. SOCIAL HISTORY: She lives at home by herself. REVIEW OF SYSTEMS: HEENT: The patient is legally blind. ENDOCRINE: Significant for averaging uncontrolled type 2 diabetes mellitus with recent development of diabetic nephropathy. RESPIRATORY: She has shortness of breath, orthopnea, paroxysmal nocturnal dyspnea. CARDIOVASCULAR: She denies chest pain or palpitations. GASTROINTESTINAL: No history of hematochezia, melena, hematemesis, diarrhea, or constipation. GENITOURINARY: Significant for diabetic nephropathy. NEUROLOGIC: No history of stroke. PHYSICAL EXAMINATION: GENERAL: This is an elderly, morbidly obese female, who is in no acute distress. VITAL SIGNS: Blood pressure 134/75, pulse 60 and regular, respirations 20, and temperature 98.2. HEENT: She is blind. NECK: Supple. Trachea midline. There was no lymphadenopathy or thyromegaly. LUNGS: Clear to auscultation and percussion. HEART: Regular rate and rhythm without rubs, murmurs, or gallops. ABDOMEN: Soft and nontender. Bowel sounds were active. EXTREMITIES: No clubbing, cyanosis, or edema. NEUROLOGIC: She is alert and oriented x4. Cranial nerves except II within normal limits. LABORATORY AND ANCILLARY DATA: Chemistry, glucose 266. Hemoglobin A1c 9.5. IMAGING STUDIES: CT scan of abdomen, no acute abnormality, left basilar 11 mm lung nodule, stable since last examination, evidence of prior cholecystectomy ASSESSMENT: 1. Atypical shortness of breath. 2. Ravaging type 2 diabetes mellitus. 3. Advanced diabetic retinopathy which reached end stage. The patient is currently blind. She lost right eye vision recently. 4. Chronic obstructive pulmonary disease. 5. Degenerative joint disease. 6. Morbid obesity. 7. Diastolic heart failure. 8. Recently developing diabetic nephropathy. 9. Depression. 10. Noncompliance. PLAN: 1. Continue home medications. 2. Try to improve glycemic control. 3. Psych evaluation. 4. [facility] [place]. Abbey Lozano M.D. DR: Alfred JOB#: [id number] CC: SANDY
[2018-10-14 20:00] VITALS: BP 158/58
--- NOTE | 2018-10-14 23:08 | Consultation ---
History of Present Illness General Chief Complaint: Dyspnea/Respdistress Present Illness HPI 83-year-old female, with hx of mmp who was admitted for medical stabilization. the pt is anxious and depressed/ the pt lost her vision recently and has cognitive impairment, Allergies: Coded Allergies: AZITHROMYCIN (Verified Allergy, Intermediate, ITCHINESS, 10/15/13) QUESTIONABLE ALLERGIC RXN BUT PT STARTED ITCHING AFTER BEING GIVEN A DOSE BUT PT NOT SURE Medication History Scheduled Aspirin Ec* (Aspirin Ec*), 81 MG ORAL DAILY Brinzolamide/Brimonid Tart (Simbrinza 1%-0.2% Eye Drops), 1 DRP OP DAILY, ( Reported) Carvedilol* (Carvedilol*), 12.5 MG ORAL DAILY, (Reported) Furosemide* (Lasix*), 20 MG ORAL DAILY Insulin Aspart* (Novolog*), 12 UNITS SUBQ THREE TIMES A DAY, (Reported) Insulin Glargine (Lantus), 12 UNITS SUBQ BEDTIME, (Reported) Irbesartan* (Avapro*), 300 MG ORAL DAILY Potassium Chloride* (K-Dur*), 20 MEQ ORAL DAILY Scheduled PRN Acetaminophen* (Tylenol Extra Strength*), 500 MG ORAL DAILY PRN for Mild Pain ( Pain Scale 1-3), (Reported) Al Hydroxide/mg Hydroxide (Mag-Al Liquid), 30 ML ORAL Q6H PRN Albuterol Sulfate* (Albuterol Sulfate Mdi*), 2 PUFF INH Q4H PRN for cough/ wheezing Guaifenesin/Codeine Phos* (Robitussin Ac*), 5 ML ORAL Q6H PRN for For Cough, ( Reported) Miscellaneous Medications Ipratropium/Albuterol Sulfate (DuoNeb 0.5-3(2.5)mg/3ml), 3 ML HHN, (Reported) Patient History Limited by: medical condition History Provided By: Patient, Medical Record, PMD Healthcare decision maker Resuscitation status Advanced Directive on File Past Medical/Surgical History Past Medical/Surgical History: (1) COPD (chronic obstructive pulmonary disease) (2) Pneumonia (3) DM circ dis type I (4) Generalized osteoarthrosis (5) Upper respiratory infection (6) Upper respiratory infection (7) Urinary tract infection (8) Abdominal pain, right upper quadrant (9) Back injury (10) Back pain (11) Diabetes (12) Dyspnea (13) CHF (congestive heart failure) (14) Sarcoid (15) Bronchitis (16) HTN (hypertension) (17) Pacemaker (18) Shortness of breath dyspnea (19) ACS (acute coronary syndrome) (20) Asthma attack (21) Acute exacerbation of chronic obstructive pulmonary disease (22) DM (diabetes mellitus), type 1 uncontrolled with peripheral vascular complication (23) History of CHF (congestive heart failure) (24) Knee contusion (25) Asthma exacerbation (26) [id number] (27) Dyspnea (28) Anxiety disorder (29) Major depression Review of Systems Psychiatric: Reports: prior hx, anxiety, depressed feelings, emotional problems Physical Exam General Appearance: no apparent distress, alert Neurologic: oriented x 3, responsive, depressed affect Last 24 Hour Vital Signs Date Time Temp Pulse Resp B/P (MAP) Pulse Ox O2 Delivery O2 Flow Rate FiO2 10/14/18 20:00 96.8 60 20 158/58 (91) 98 10/14/18 16:00 97.5 61 20 106/64 (78) 98 10/14/18 12:00 97.8 61 20 149/28 (68) 98 10/14/18 09:17 60 134/75 10/14/18 09:00 Room Air 10/14/18 08:00 98.2 62 20 108/53 (71) 98 10/14/18 04:00 98.6 62 20 138/83 (101) 100 10/14/18 00:00 98.4 61 20 147/82 (103) 99 Intake and Output 10/13/18 10/14/18 19:00 07:00 Intake Total 0 ml 180 ml Balance 0 ml 180 ml Intake Oral 0 ml 180 ml # Voids 2 # Bowel Movements 2 Height (Feet): 5 Height (Inches): 5.00 Weight (Pounds): 293 Medications Current Medications Medications (Trade) Dose Ordered Sig/Haider Route PRN Reason Start Time Stop Time Status Last Admin Dose Admin Acetaminophen (Tylenol) 500 mg Q6H PRN ORAL Mild Pain (Pain Scale 1-3) 10/13/18 20:45 11/12/18 20:44 Acetaminophen/ Hydrocodone Bitart ([place] 5/325) 1 tab Q6H PRN ORAL For Severe Pain 10/13/18 20:45 10/20/18 20:44 Al Hydroxide/Mg Hydroxide (Mylanta) 30 ml Q6H PRN ORAL Abdominal cramps 10/13/18 20:45 11/12/18 20:44 Aspirin (Ecotrin) 81 mg DAILY ORAL 10/14/18 09:00 11/13/18 08:59 10/14/18 09:16 Carvedilol (Coreg) 12.5 mg DAILY ORAL 10/14/18 09:00 11/13/18 08:59 10/14/18 09:17 Dextrose (Dextrose 50%) 25 ml Q30M PRN IV Hypoglycemia 10/13/18 20:45 11/12/18 20:44 Dextrose (Dextrose 50%) 50 ml Q30M PRN IV Hypoglycemia 10/13/18 20:45 11/12/18 20:44 Furosemide (Lasix) 20 mg DAILY ORAL 10/14/18 09:00 11/13/18 08:59 10/14/18 09:17 Guaifenesin/ Codeine Phosphate (Robitussin with codeine) 5 ml Q6H PRN ORAL For Cough 10/13/18 20:45 11/12/18 20:44 Heparin Sodium (Porcine) (Heparin 5000 units/ml) 5,000 units EVERY 12 HOURS SUBQ 10/13/18 21:00 11/12/18 20:59 10/14/18 21:18 Insulin Aspart (NovoLOG) BEFORE MEALS AND HS SUBQ 10/13/18 21:00 11/12/18 20:59 10/14/18 21:18 Insulin Aspart (NovoLOG) 12 units THREE TIMES A DAY SUBQ 10/14/18 09:00 11/13/18 08:59 10/14/18 17:33 Ondansetron HCl (Zofran) 4 mg Q6H PRN IVP Nausea & Vomiting 10/13/18 20:45 11/12/18 20:44 Assessment/Plan Problem List: (1) Major depression ICD Codes: F32.9 - Major depressive disorder, single episode, unspecified SNOMED: 360416661 (2) Anxiety disorder ICD Codes: F41.9 - Anxiety disorder, unspecified SNOMED: 815007708 Status: stable, progressing Assessment/Plan remeron 7.5mg qhs provided alyson/Sonny Orona MD Oct 14, 2018 23:08
[2018-10-15] VITALS: BP 154/62
[2018-10-15 04:00] VITALS: BP 151/72
[2018-10-15] MEDS: NovoLOG Insulin Flexpen SUBQ SCH ×5 (06:40→16:30)
[2018-10-15 08:00] VITALS: BP 120/84
--- NOTE | 2018-10-15 08:29 | Nephrology Progress Note ---
Assessment/Plan Plan Uncontrolled AODM - on Insulins. Advancing D. Retinopathy. Recent total blindness. Now starting Diabetic Nephropathy. Home alone. Not taking care of herself. Needs SNF. Agreeable Subjective Subjective Cough. Objective Objective Last 24 Hour Vital Signs Date Time Temp Pulse Resp B/P (MAP) Pulse Ox O2 Delivery O2 Flow Rate FiO2 10/15/18 04:00 97.5 60 20 151/72 (98) 100 10/15/18 00:00 97.5 60 20 154/62 (92) 100 10/14/18 21:00 Room Air 10/14/18 20:00 96.8 60 20 158/58 (91) 98 10/14/18 16:00 97.5 61 20 106/64 (78) 98 10/14/18 12:00 97.8 61 20 149/28 (68) 98 10/14/18 09:17 60 134/75 10/14/18 09:00 Room Air Intake and Output 10/14/18 10/15/18 19:00 07:00 Intake Total 520 ml 120 ml Balance 520 ml 120 ml Intake Oral 520 ml 120 ml # Voids 4 3 # Bowel Movements 1 Height (Feet): 5 Height (Inches): 5.00 Weight (Pounds): 293 Objective Obese CV RR Lungs CTA Abd SNT. E No CCE Abbey Lozano MD Oct 15, 2018 08:29
[2018-10-15] MEDS: Carvedilol 12.5mg tab ORAL SCH (09:48)
[2018-10-15] MEDS: Heparin 5000 units/ml inj SUBQ SCH (09:49)
[2018-10-15] MEDS: Aspirin EC 81mg tab ORAL SCH (09:49)
[2018-10-15 12:00] VITALS: BP 130/79
--- NOTE | 2018-10-15 14:24 | General Progress Note ---
Assessment/Plan Problem List: (1) Anxiety disorder ICD Codes: F41.9 - Anxiety disorder, unspecified SNOMED: 521454716 (2) Major depression ICD Codes: F32.9 - Major depressive disorder, single episode, unspecified SNOMED: 266288513 Status: stable Assessment/Plan Remeron 7.5mg qhs provided ro/st Subjective Neurologic/Psychiatric: Reports: anxiety, depressed Allergies: Coded Allergies: AZITHROMYCIN (Verified Allergy, Intermediate, ITCHINESS, 10/15/13) QUESTIONABLE ALLERGIC RXN BUT PT STARTED ITCHING AFTER BEING GIVEN A DOSE BUT PT NOT SURE Subjective the pt is noncompliant Objective Last 24 Hour Vital Signs Date Time Temp Pulse Resp B/P (MAP) Pulse Ox O2 Delivery O2 Flow Rate FiO2 10/15/18 12:00 98.8 62 20 130/79 (96) 100 10/15/18 09:48 84 120/84 10/15/18 09:00 Room Air 10/15/18 08:00 99.5 84 20 120/84 (96) 100 10/15/18 04:00 97.5 60 20 151/72 (98) 100 10/15/18 00:00 97.5 60 20 154/62 (92) 100 10/14/18 21:00 Room Air 10/14/18 20:00 96.8 60 20 158/58 (91) 98 10/14/18 16:00 97.5 61 20 106/64 (78) 98 Intake and Output 10/14/18 10/15/18 18:59 06:59 Intake Total 520 ml 120 ml Balance 520 ml 120 ml Intake Oral 520 ml 120 ml # Voids 4 3 # Bowel Movements 1 Height (Feet): 5 Height (Inches): 5.00 Weight (Pounds): 293 General Appearance: no apparent distress, alert Neurologic: oriented x 3, responsive, depressed affect Sonny Diaz MD Oct 15, 2018 14:24
--- NOTE | 2018-10-15 14:26 | Diagnostic Imaging Report ---
Indication: Cough Technique: One view of the chest Comparison: 08/18/2018 Findings: Scarring or atelectasis is again demonstrated in the right perihilar region. Bilateral diffuse interstitial prominence with central bronchial wall thickening is again demonstrated, may be slightly more striking than previously. The heart is borderline enlarged. No focal airspace consolidation. No definite effusions. Impression: Mild interstitial prominence. Appearance is suggestive of senescent changes with chronic bronchial wall thickening. However, it is somewhat more striking than on the prior exam raising the possibility of superimposed acute interstitial edema. Correlate with clinical findings Mild cardiomegaly Other findings as noted
--- NOTE | 2018-10-15 15:41 | Diagnostic Imaging Report ---
Indication: Abdominal pain Technique: Supine and upright views of the abdomen Comparison: none Findings: Unremarkable bowel gas pattern. No significant air-fluid levels or evidence free intraperitoneal air. No gaseous distention of large or small bowel. Pacemaker wires are noted in the heart. No unusual masses or calcifications. A surgical staple line is seen either the left lung base or in the left upper quadrant Impression: No acute process. Findings as noted
[2018-10-15 16:00] VITALS: BP 164/86
[2018-10-15 17:23] VITALS: BP 164/86
--- NOTE | 2018-10-18 14:00 | Discharge Summary ---
Discharge Summary Discharge Summary _ DATE OF ADMISSION: 10/13/2018 DATE OF DISCHARGE: 10/15/2018. Patient signed AGAINST MEDICAL ADVICE REASON FOR ADMISSION: 83 years old female with past medical history of type 2 diabetes mellitus, diabetic retinopathy, end-stage with right eye blindness, COPD, degenerative joint disease, morbid obesity, diastolic heart failure, recently diagnosed diabetic nephropathy, depression, noncompliance, hypertension, presented with complaint of right lower quadrant abdominal pain for one week. Patient reported constant mild to moderate aching quality pain. No diarrhea ,no vomiting . Patient also reported mild shortness of breath, but no fever, no chills, no chest pain. Patient apparently run out of her inhaler. Vital signs revealed no fever, but indicated elevated systolic blood pressure 171/55. Pulse oximetry was stable on room air. Laboratory workup revealed no leukocytosis, stable hemoglobin and hematocrit. BUN 32 creatinine 1.2. Glucose 266. Troponin negative. EKG revealed sinus rhythm, no acute ischemic changes Chest X-ray revealed mild interstitial prominence with chronic bronchial wall thickening. Mild cardiomegaly.. Abdominal x-ray revealed no acute process. CT of the abdomen and pelvis revealed no acute abnormality. Patient admitted with diagnoses of atypical shortness of breath, type 2 diabetes mellitus with diabetic retinopathy, end-stage with right eye blindness ,COPD ,DJD ,morbid obesity, diastolic heart failure, recently developing diabetic nephropathy, depression, noncompliance. CONSULTANTS: psychiatrist [facility] COURSE: Patient admitted . Home medications resumed. Supplemental oxygen provided as needed to keep pulse oximetry above 92%. Pulmonary toilet with bronchodilator provided. Antitussive provided as needed. Hemoglobin A1c- 9.5 , clearly not at goal. Blood sugar was managed with pre-meal short acting insulin and sliding scale of insulin as needed. Patient will need further optimization of anti-glycemic regimen, possibly adding long acting insulin. Patient was educated on diabetic diet. Antiplatelet therapy with aspirin was continued. Blood pressure was managed with beta tita. Gentle diuresis with Lasix/ maintenance dose - was continued. Pain management was addressed, and pain was controlled. Bowel regimen instituted. DVT prophylaxis provided. Antiemetics were on board as needed. Patient was able to tolerate diet. Psychiatrist seen and evaluated patient. Reality orientation and supportive therapy provided. Patient started on low-dose of Remeron at nighttime. Patient was counseled on compliance with her medication regimen. Patient had advanced diabetic retinopathy/end stage with recent right eye blindness along with recently diagnosed diabetic nephropathy . Patient lives at home alone, and was not able to take care of herself. Patient required SNIF placement. Patient initially was agreeable with physician recommendation for SNF systems planner was working on placement. Later, patient verbalized desire to leave AGAINST MEDICAL ADVICE. Her son came to pick her up. The risks and consequences of signing AGAINST MEDICAL ADVICE were discussed with patient in detail. Patient verbalized understanding, nevertheless signed AMA form and left. . FINAL DIAGNOSES: Ravaging diabetes mellitus type 2 out of control. Advanced diabetic retinopathy, end stage, blindness right eye COPD Diabetic nephropathy/recently diagnosed Diastolic heart failure Morbid obesity Noncompliance Major depression Degenerative joint disease Anxiety disorder I have been assigned to dictate discharge summary for this account. I was not involved in the patient's management. Brigida Richards NP Oct 18, 2018 14:00
== END 2018-10-15 20:00 | disposition left against medical advice (07) | DRG 638 ==
LOC: EMR 13:20 → 4E 14:05 → EDBEDREQ 16:03 → 4E 10-14 00:20
DX: E11.65 Type 2 diabetes mellitus with hyperglycemia (principal); I50.30 Unspecified diastolic (congestive) heart failure; Z68.42 Body mass index [BMI] 45.0-49.9, adult; I11.0 Hypertensive heart disease with heart failure; E11.319 Type 2 diabetes mellitus with unspecified diabetic retinopathy without macular edema; E11.21 Type 2 diabetes mellitus with diabetic nephropathy; H54.61 Unqualified visual loss, right eye, normal vision left eye; E66.01 Morbid (severe) obesity due to excess calories; Z91.19 Patient's noncompliance with other medical treatment and regimen; F32.9 Major depressive disorder, single episode, unspecified; M19.90 Unspecified osteoarthritis, unspecified site; F41.9 Anxiety disorder, unspecified; Z88.1 Allergy status to other antibiotic agents; Z79.4 Long term (current) use of insulin
CPT/HCPCS: 36415; 71045; 74019; 74176; 80053; 81050; 82043; 82962; 83036; 83690; 84484; 85025; 93005; 94640; 99285; J1815

== ENCOUNTER 2019-01-08 08:03 | Inpatient (IN) | payer MEDICARE, MEDICAID ==
[~2019-01-08] VITALS: Ht 165.1 cm; Wt 128.4 kg
[2019-01-08] MEDS ORDERED: MILK OF MA400 MG/51 ORAL (08:17)
--- NOTE | 2019-01-08 08:25 | NUR ---
ED Nurse Note: patient was maria t by her son, complaining of lower back pain. per patient she has pain 6/10. AAO x 4, skin is intact, dry, warm to touch. patient has impaired mobility, using wheel chair in a regular basis.per patient she fell in her bathroom yesterday, no head trauma, no KO. VSS at this time. will continue to monitor.
--- NOTE | 2019-01-08 08:28 | NUR ---
ED Nurse Note: patient is legally blind
--- NOTE | 2019-01-08 08:43 | Emergency Room Report ---
History of Present Illness General Chief Complaint: Back Pain-No Injury Source: Patient, Medical Record Present Illness HPI Patient is an 83-year-old female who presented after increased mid back pain. Patient had prior history of diabetes. She was noted to have prior history of congestive heart failure. Patient had been having increased back pain for approximately 2 weeks. This had worsened over the past few days. Patient was noted to have increased urinary frequency. She will was reportedly having sugars in the mid 100s-200s. She had not been having any fever. She reports having some recent use of nitroglycerin due to chest discomfort. She reports having pain in the mid back. This was noted to be sharp in nature. This is not changed by position Patient reportedly had a recent urinary testing which did not show any definite urinary infection. Patient was noted to be almost totally blind due to diabetic retinopathy as well as history of glaucoma Patient is followed by Dr. Claire Allergies: Coded Allergies: AZITHROMYCIN (Verified Allergy, Intermediate, ITCHINESS, 10/15/13) QUESTIONABLE ALLERGIC RXN BUT PT STARTED ITCHING AFTER BEING GIVEN A DOSE BUT PT NOT SURE Patient History Past Medical History: see triage record Now: No Reviewed Nursing Documentation: PMH: Agreed; PSxH: Agreed Nursing Documentation-PMH Hx Cardiac Problems: Yes Hx Hypertension: Yes Hx Pacemaker: Yes - left upper chest Hx Asthma: Yes Hx COPD: Yes Hx Diabetes: Yes Hx Cancer: No Hx Gastrointestinal Problems: Yes Hx Neurological Problems: Yes Hx Tremors: Yes Hx Vertigo: Yes Hx Dizziness: Yes Hx Syncope: Yes Hx Headaches: Yes Hx Weakness: Yes Hx Fatigue: Yes Review of Systems All Other Systems: negative except mentioned in HPI Physical Exam Vital Signs Date Time Temp Pulse Resp B/P (MAP) Pulse Ox O2 Delivery O2 Flow Rate FiO2 01/08/19 08:10 98.4 69 18 123/62 94 Room Air Sp02 EP Interpretation: reviewed, normal General Appearance: obese, Chronically Ill Head: atraumatic Eyes: bilateral eye other - disconjugate gaze, poor vision ENT: normal ENT inspection, hearing grossly normal, normal voice Neck: normal inspection, full range of motion, supple, no bony tend Respiratory: normal inspection, no respiratory distress, no retraction, wheezing Cardiovascular #1: edema - 3+ edema Gastrointestinal: normal inspection, normal bowel sounds, non tender, soft, no guarding, no hernia Genitourinary: no CVA tenderness Musculoskeletal: normal inspection, decreased range of motion, tender - left buttock Neurologic: normal inspection, alert, oriented x3, responsive, speech normal Psychiatric: normal inspection, judgement/insight normal, mood/affect normal Skin: normal inspection, normal color, no rash Medical Decision Making Diagnostic Impression: Primary Impression: CHF (congestive heart failure) Additional Impressions: COPD (chronic obstructive pulmonary disease) Generalized weakness Arthritis ER Course Patient presented for increased urination and generalized weakness. Differential diagnosis include was not limited to congestive heart failure, uncontrolled diabetes, diabetic nephropathy, among others. Because of complexity of patient's case laboratory testing and imaging studies were ordered. Patient was noted to have prior history of multiple medical conditions. EKG interpreted by me showed atrial paced rhythm. Patient was noted to be significantly edematous. CT of abdomen and pelvis showed degenerative changes in the lumbar spine. She was noted to have some slight respiratory difficulty. Patient was started on IV Lasix. Dr. Bryant was contacted for inpatient management due to covering physician for Dr. Claire. Labs Test 01/08/19 08:45 01/08/19 09:30 White Blood Count 6.6 K/UL (4.8-10.8) Red Blood Count 5.59 M/UL (4.20-5.40) Hemoglobin 13.0 G/DL (12.0-16.0) Hematocrit 42.0 % (37.0-47.0) Mean Corpuscular Volume 75 FL (80-99) Mean Corpuscular Hemoglobin 23.3 PG (27.0-31.0) Mean Corpuscular Hemoglobin Concent 31.0 G/DL (32.0-36.0) Red Cell Distribution Width 12.4 % (11.6-14.8) Platelet Count 225 K/UL (150-450) Mean Platelet Volume 7.7 FL (6.5-10.1) Neutrophils (%) (Auto) 70.3 % (45.0-75.0) Lymphocytes (%) (Auto) 19.6 % (20.0-45.0) Monocytes (%) (Auto) 7.4 % (1.0-10.0) Eosinophils (%) (Auto) 2.0 % (0.0-3.0) Basophils (%) (Auto) 0.8 % (0.0-2.0) Prothrombin Time 11.0 SEC (9.30-11.50) Prothromb Time International Ratio 1.0 (0.9-1.1) Activated Partial Thromboplast Time 25 SEC (23-33) Sodium Level 135 MMOL/L (136-145) Potassium Level 4.4 MMOL/L (3.5-5.1) Chloride Level 103 MMOL/L (98-107) Carbon Dioxide Level 26 MMOL/L (21-32) Anion Gap 6 mmol/L (5-15) Blood Urea Nitrogen 25 mg/dL (7-18) Creatinine 1.2 MG/DL (0.55-1.30) Estimat Glomerular Filtration Rate mL/min (>60) Glucose Level 260 MG/DL (74-106) Hemoglobin A1c 8.9 % (4.3-6.0) Lactic Acid Level 1.50 mmol/L (0.4-2.0) Calcium Level 10.1 MG/DL (8.5-10.1) Total Bilirubin 0.3 MG/DL (0.2-1.0) Aspartate Amino Transf (AST/SGOT) 16 U/L (15-37) Alanine Aminotransferase (ALT/SGPT) 23 U/L (12-78) Alkaline Phosphatase 104 U/L (46-116) Troponin I 0.000 ng/mL (0.000-0.056) Pro-B-Type Natriuretic Peptide 240 pg/mL (0-125) Total Protein 7.5 G/DL (6.4-8.2) Albumin 3.0 G/DL (3.4-5.0) Globulin 4.5 g/dL Albumin/Globulin Ratio 0.7 (1.0-2.7) Lipase 122 U/L (73-393) Thyroid Stimulating Hormone (TSH) 2.510 uiU/mL (0.358-3.740) Urine Color Yellow Urine Appearance Clear Urine pH 5 (4.5-8.0) Urine Specific [place] 1.020 (1.005-1.035) Urine Protein 2+ (NEGATIVE) Urine Glucose (UA) Negative (NEGATIVE) Urine Ketones Negative (NEGATIVE) Urine Blood Negative (NEGATIVE) Urine Nitrite Negative (NEGATIVE) Urine Bilirubin Negative (NEGATIVE) Urine Urobilinogen 1 MG/DL (0.0-1.0) Urine Leukocyte Esterase Negative (NEGATIVE) Urine RBC 0-2 /HPF (0 - 2) Urine WBC 0-2 /HPF (0 - 2) Urine Squamous Epithelial Cells Moderate /LPF (NONE/OCC) Urine Bacteria Few /HPF (NONE) Urine Mucus Few /LPF (NONE/OCC) EKG Diagnostic Results Rate: normal Rhythm: other - atrial paced rhythm Last Vital Signs Date Time Temp Pulse Resp B/P (MAP) Pulse Ox O2 Delivery O2 Flow Rate FiO2 01/08/19 08:10 98.4 69 18 123/62 94 Room Air Status: unchanged Disposition: ADMITTED INPATIENT Condition: Stable John Shane MD Jan 08, 2019 08:43
--- NOTE | 2019-01-08 08:55 | NUR ---
ED Nurse Note: patient went down for CT
--- NOTE | 2019-01-08 09:05 | NUR ---
ED Nurse Note: patient is back from CT, no acute disstress
[2019-01-08 09:15] VITALS: BP 135/57
--- NOTE | 2019-01-08 09:18 | Diagnostic Imaging Report ---
EXAM: CT Abdomen and Pelvis Without Intravenous Contrast CLINICAL HISTORY: PAIN TECHNIQUE: Axial computed tomography images of the abdomen and pelvis without intravenous contrast. CTDI is 21.58 mGy and DLP is 1085 mGy-cm. One or more of the following dose reduction techniques were used: automated exposure control, adjustment of the mA and/or kV according to patient size, use of iterative reconstruction technique. COMPARISON: CT abdomen and pelvis dated 10/14/18 FINDINGS: Lung bases: Post surgical changes in the left lung base, with scarring versus linear atelectasis Linear atelectasis in the right middle lobe. 4 mm calcified granuloma in the right lung base. ABDOMEN: Liver: Unremarkable. Gallbladder and bile ducts: Status post cholecystectomy. No ductal dilation. Pancreas: Unremarkable. No ductal dilation. Spleen: Unremarkable. No splenomegaly. Adrenals: Unremarkable. No mass. Kidneys and ureters: 1.8 cm cortical hypodensity in the left lower renal pole, most likely representing a simple cyst. The kidneys otherwise appear unremarkable. No hydronephrosis or hydroureter. Stomach and bowel: Mild diffuse colonic fecal retention may suggest constipation. Remainder of the colon appears unremarkable. No abnormally distended loops of small bowel. GE junction and stomach appear unremarkable. No mucosal thickening. PELVIS: Appendix: The appendix appears normal. Bladder: Unremarkable. No stones. Reproductive: The uterus and ovaries are not visualized and may be surgically absent. ABDOMEN and PELVIS: Intraperitoneal space: Unremarkable. No free air. No significant fluid collection. Bones/joints: Mild multilevel degenerative changes throughout the visualized spine with disc space loss and endplate osteophytes, most prominent at L5-S1. Moderate degenerative changes also seen in bilateral SI joints and bilateral hips, with joint space loss and marginal osteophytes. No acute fracture. No dislocation. Soft tissues: Unremarkable. Vasculature: Atherosclerotic calcifications throughout the abdominal aorta and its proximal branches. No abnormal dilatation. Lymph nodes: Unremarkable. No enlarged lymph nodes. Tubes, lines and devices: Cardiac pacer leads within the right atrium and right ventricle. IMPRESSION: Mild diffuse colonic fecal retention may suggest constipation. Otherwise no acute findings in the abdomen or pelvis.
[2019-01-08 09:21] LABS: BASOPHILS % (AUTO) 0.8 % (0.0-2.0); LYMPHOCYTES % (AUTO) 19.6 % (20.0-45.0); MEAN CORPUSCULAR VOLUME 75 FL (80-99); MONOCYTES % (AUTO) 7.4 % (1.0-10.0); NEUTROPHILS % (AUTO) 70.3 % (45.0-75.0); PLATELET COUNT 225 K/UL (150-450); RED BLOOD COUNT 5.59 M/UL (4.20-5.40); RED CELL DISTRIBUTION WIDTH 12.4 % (11.6-14.8); WHITE BLOOD COUNT 6.6 K/UL (4.8-10.8)
[2019-01-08 09:25] LABS: ANION GAP 6 mmol/L (5-15); BLOOD UREA NITROGEN 25 mg/dL (7-18); CALCIUM 10.1 MG/DL (8.5-10.1); CARBON DIOXIDE 26 MMOL/L (21-32); CHLORIDE 103 MMOL/L (98-107); CREATININE 1.2 MG/DL (0.55-1.30); POTASSIUM 4.4 MMOL/L (3.5-5.1); SODIUM 135 MMOL/L (136-145)
[2019-01-08 09:37] LABS: ALANINE AMINOTRANSFERASE 23 U/L (12-78); ALBUMIN/GLOBULIN RATIO 0.7 (1.0-2.7); ALKALINE PHOSPHATASE 104 U/L (46-116); ASPARTATE AMINO TRANSFERASE 16 U/L (15-37); BILIRUBIN,TOTAL 0.3 MG/DL (0.2-1.0)
[2019-01-08 09:43] LABS: APPEARANCE,URINE CLEAR; BILIRUBIN, URINE NEGATIVE (NEGATIVE); GLUCOSE, URINE (UA) NEGATIVE (NEGATIVE); KETONES,URINE NEGATIVE (NEGATIVE); LEUKOCYTE ESTERASE ,URINE NEGATIVE (NEGATIVE); NITRITE,URINE NEGATIVE (NEGATIVE); PH,URINE 5 (4.5-8.0); PROTEIN,URINE 2+ (NEGATIVE); UROBILINOGEN,URINE 1 MG/DL (0.0-1.0)
[2019-01-08 09:44] LABS: COLOR,URINE YELLOW
--- NOTE | 2019-01-08 10:20 | NUR ---
ED Nurse Note: bhakta catheter was inserted
[2019-01-08 11:07] VITALS: BP 153/60
[2019-01-08 12:24] VITALS: BP 154/75
[2019-01-08 14:01] VITALS: BP 140/82
--- NOTE | 2019-01-08 14:48 | NUR ---
ED Nurse Note: patient was admited to tele unit, AAO x 4, VSS at this time, all belongings were given to the patient, report was given to ANAHY Jhaveri. patient was transfered by ACLS protocol
[2019-01-08 16:00] VITALS: BP 153/53
--- NOTE | 2019-01-08 16:00 | History and Physical Report ---
DATE OF ADMISSION: 01/08/2019 CHIEF COMPLAINT: Low back pain and lower abdominal pain. HISTORY OF PRESENT ILLNESS: This is a well-known 83-year-old female. Her primary care physician is Dr. Nighat Claire who does not come to this hospital. The patient has been admitted numerous times by me in this hospital. The patient has multiple medical problems as listed below. She has been complaining of severe low back pain and lower abdominal pain. PAST MEDICAL HISTORY: 1. Type 2 diabetes mellitus. 2. Noncompliance. 3. Hypertensive cardiovascular disease. 4. Recent onset of diabetic nephropathy with close to nephritic range proteinuria. 5. Advanced diabetic retinopathy with blindness. 6. Degenerative joint disease. 7. Glaucoma. 8. Diastolic heart failure. 9. COPD. HOME MEDICATIONS: Tylenol p.r.n., albuterol inhaler, Ecotrin, Simbrinza eyedrops, Coreg, Lasix, Robitussin A-C syrup, NovoLog insulin, Lantus, DuoNeb inhaler, Avapro, milk of magnesia p.r.n., potassium chloride. ALLERGIES: Azithromycin. FAMILY HISTORY: Unremarkable. SOCIAL HISTORY: The patient lives at home. HABITS: She is nonsmoker and nondrinker. There is no history of illicit drug abuse. REVIEW OF SYSTEMS: HEENT: Hearing normal. Eyesight, she is close to blindness. ENDOCRINE: She has multiorgan type 2 diabetes mellitus with advanced diabetic retinopathy and is close to total blindness in both eyes. RESPIRATORY: She has severe COPD. CARDIAC: She denies chest pain or palpitations. NEUROLOGICAL: She had no stroke. GENITOURINARY: She has dysuria. She has advanced diabetic nephropathy. PHYSICAL EXAMINATION: GENERAL: This is an elderly, morbidly obese female, who is in no acute distress. VITAL SIGNS: Blood pressure 153/60, pulse , respirations 18, and temperature 98. HEENT: The head is normocephalic and atraumatic. The patient is blind. NECK: Supple. Trachea midline. There was no lymphadenopathy or thyromegaly. LUNGS: Clear to auscultation and percussion. HEART: Regular rate and rhythm without rubs, murmurs, or gallops. ABDOMEN: Soft and nontender. Bowel sounds were active. EXTREMITIES: No clubbing, cyanosis, or edema. NEUROLOGICAL: She is alert and oriented x4. Cranial nerves II through XII intact. LABORATORY AND ANCILLARY DATA: CBC within normal limits. Basic metabolic panel, sodium 135, glucose 260, otherwise within normal limits. Urinalysis, 2+ protein, few bacteria. Urine microscopy within normal limits. Imaging studies pending. CAT scan of the abdomen unremarkable. ASSESSMENT: 1. Low back pain, nonspecific. 2. Type 2 diabetes mellitus. 3. Noncompliance. 4. Hypertensive cardiovascular disease. 5. Recent onset of diabetic nephropathy with close to nephritic range proteinuria. 6. Advanced diabetic retinopathy with blindness. 7. Degenerative joint disease. 8. Glaucoma. 9. Diastolic heart failure. 10. COPD. PLAN: 1. Symptomatic to treatment for the patient's pain. 2. Continue home medications. Abbey Lozano M.D. DR: Wayne JOB#: [id number] CC:
[2019-01-08] MEDS ORDERED: Norco 5mg/325mg tab ORAL PRN (18:00)
[2019-01-08] MEDS ORDERED: HYDROcodone/Acetamin 10/325 tab ORAL PRN (18:00)
[2019-01-08] MEDS ORDERED: Albuterol/Ipratropium 3ml neb HHN PRN (18:00)
[2019-01-08] MEDS ORDERED: Albuterol 90mcg Inhaler 8gm INH PRN (18:00)
--- NOTE | 2019-01-08 19:20 | NUR ---
NURSE NOTES: Received report from ANAHY Jhaveri. Patient awake, alert and verbally responsive. No SOB, no acute distress, denies any pain nor any discomfort at this time. IV site on L AC #20, patent and intact. Bed at lowest position, call light within reach. Will continue plan of care.
[2019-01-08 20:00] VITALS: BP 152/53
[2019-01-08] MEDS: Heparin 5000 units/ml inj SUBQ SCH (20:34)
[2019-01-08] MEDS: NovoLOG Insulin Flexpen SUBQ SCH (20:35)
[2019-01-09] VITALS: BP 133/72
--- NOTE | 2019-01-09 03:00 | NUR ---
HAND-OFF: Report given to ANAHY Ebuanks. Patient asleep, breathing even and unlabored, no s/sx of pain nor any discomfort at this time. remains sinus rhythm at gambling monitor. F/C intact and patent with yellow colored output. Endorsed plan of care.
--- NOTE | 2019-01-09 03:15 | NUR ---
NURSE NOTES: Received patient from ANAHY Medina. Patient on bed asleep with no signs of distress at this time. IV site intact and patent. Call light within reach. Bed brakes engaged.
[2019-01-09 04:00] VITALS: BP 132/68
[2019-01-09] MEDS: NovoLOG Insulin Flexpen SUBQ SCH ×4 (06:38→20:55)
--- NOTE | 2019-01-09 07:39 | NUR ---
HAND-OFF: Report given to Saira Jhaveri. Endorsed plan of care.
[2019-01-09 08:00] VITALS: BP 132/68
[2019-01-09] MEDS: Aspirin EC 81mg tab ORAL SCH (09:38)
[2019-01-09] MEDS: Irbesartan 150mg tablet ORAL SCH (09:38)
[2019-01-09] MEDS: Carvedilol 12.5mg tab ORAL SCH (09:39)
[2019-01-09] MEDS: Milk of Magnesia 30ml Ud ORAL SCH (09:40)
[2019-01-09] MEDS: Heparin 5000 units/ml inj SUBQ SCH ×2 (09:42→20:56)
--- NOTE | 2019-01-09 10:56 | NUR ---
CASE MANAGEMENT: REVIEW /F BIBA FROM HOME CC: GENERALIZED WEAKNESS SI: CHF . COPD T 98.4 HR 60 RR 21 BP 153/60 SAT 94% ROOM AIR NA 135 BUN 25 GLUCOSE 260 IS: LASIX IV X1 PATIENT ADMITTED TO TELEMETRY UNIT 01/08/2019 DCP: PATIENT IS FROM HOME
--- NOTE | 2019-01-09 10:59 | General Progress Note ---
Assessment/Plan Assessment/Plan LBP due to spondylosis - pain control D. Neuropathy - use Neurontin. Subjective Allergies: Coded Allergies: AZITHROMYCIN (Verified Allergy, Intermediate, ITCHINESS, 10/15/13) QUESTIONABLE ALLERGIC RXN BUT PT STARTED ITCHING AFTER BEING GIVEN A DOSE BUT PT NOT SURE Subjective c/o severe LBP Objective Last 24 Hour Vital Signs Date Time Temp Pulse Resp B/P (MAP) Pulse Ox O2 Delivery O2 Flow Rate FiO2 01/09/19 09:39 63 132/68 01/09/19 09:38 132/68 01/09/19 08:25 82 18 Room Air 21 01/09/19 04:00 97.8 63 18 132/68 (89) 98 01/09/19 03:32 61 01/09/19 00:00 61 01/09/19 00:00 97.3 61 18 133/72 (92) 98 01/08/19 21:00 Room Air 01/08/19 20:28 60 18 Room Air 21 01/08/19 20:00 98.0 60 18 152/53 (86) 99 01/08/19 20:00 60 01/08/19 16:00 97.7 61 23 153/53 (86) 99 01/08/19 15:00 Nasal Cannula 2.0 01/08/19 14:45 98.0 60 18 138/76 99 Room Air 01/08/19 14:01 98.0 60 21 140/82 100 Room Air 01/08/19 12:24 98.0 60 21 154/75 99 Room Air 01/08/19 11:07 98.0 60 18 153/60 99 Room Air Intake and Output 01/08/19 01/09/19 18:59 06:59 Intake Total 120 ml Output Total 1700 ml 400 ml Balance -1700 ml -280 ml Intake Oral 120 ml Output Urine Total 1700 ml 400 ml Height (Feet): 5 Height (Inches): 5.00 Weight (Pounds): 283 Objective Blind Morbidly Obese CV RR lungs CTA Abd SNT. BS + E No CC. +2 edema. Abbey Lozano MD Jan 09, 2019 10:59
[2019-01-09 12:00] VITALS: BP 148/53
[2019-01-09 16:00] VITALS: BP 135/66
--- NOTE | 2019-01-09 19:54 | NUR ---
NURSE NOTES: RECEIVED PATIENT ASLEEP, AROUSABLE. FALL PRECAUTIONS IN PLACE: CALL LIGHT AND BEDSIDE TABLE WITHIN REACH, BED IN LOW POSITION AND BED ALARM ON.
[2019-01-09 20:00] VITALS: BP 148/57
[2019-01-10] VITALS: BP 148/59
--- NOTE | 2019-01-10 01:30 | NUR ---
NURSE NOTES: ASSISTED PATIENT TO COMMODE AND BACK TO BED. FALL PRECAUTIONS OBSERVED.
[2019-01-10 04:00] VITALS: BP 140/60
[2019-01-10] MEDS: NovoLOG Insulin Flexpen SUBQ SCH ×2 (06:05→11:23)
--- NOTE | 2019-01-10 07:27 | NUR ---
HAND-OFF: Report given to ANAHY WERNER. PATIENT HAVING BREAKFAST, NO SIGNS OF DISTRESS NOTED.
--- NOTE | 2019-01-10 07:29 | NUR ---
NURSE NOTES: Received repot from ANAHY Puentes. Patient is alert and oriented x4 and is in stable condition. No acute distress/SOB noted. Will continue plan of care.
[2019-01-10 08:00] VITALS: BP 130/60
[2019-01-10] MEDS: Aspirin EC 81mg tab ORAL SCH (09:17)
[2019-01-10] MEDS: Irbesartan 150mg tablet ORAL SCH (09:17)
[2019-01-10] MEDS: Milk of Magnesia 30ml Ud ORAL SCH (09:17)
[2019-01-10] MEDS: Carvedilol 12.5mg tab ORAL SCH (09:17)
[2019-01-10] MEDS: Heparin 5000 units/ml inj SUBQ SCH (09:26)
--- NOTE | 2019-01-10 10:39 | Consultation ---
History of Present Illness General Chief Complaint: Back Pain-No Injury Present Illness HPI 83-year-old female who presented after increased mid back pain. The pt has hx diabetes, htn and obesity. The pt is depressed, anhedonia and has insomnia. the pt was recently started on medication for insomnia and was given meds. the pt could not remember the name of the medication. the pt is easily agitated. the pt has poor memory however the pt is alert and oriented. the pt is not endorsing any si/hi. Allergies: Coded Allergies: AZITHROMYCIN (Verified Allergy, Intermediate, ITCHINESS, 10/15/13) QUESTIONABLE ALLERGIC RXN BUT PT STARTED ITCHING AFTER BEING GIVEN A DOSE BUT PT NOT SURE Medication History Scheduled Aspirin Ec* (Aspirin Ec*), 81 MG ORAL DAILY Brinzolamide/Brimonid Tart (Simbrinza 1%-0.2% Eye Drops), 1 DRP OP DAILY, ( Reported) Carvedilol* (Carvedilol*), 12.5 MG ORAL DAILY, (Reported) Furosemide* (Lasix*), 20 MG ORAL DAILY Insulin Aspart* (Novolog*), 12 UNITS SUBQ THREE TIMES A DAY, (Reported) Insulin Glargine (Lantus), 12 UNITS SUBQ BEDTIME, (Reported) Irbesartan* (Avapro*), 300 MG ORAL DAILY Magnesium Hydroxide* (Milk Of Magnesia*), 30 ML ORAL DAILY, (Reported) Potassium Chloride* (K-Dur*), 20 MEQ ORAL DAILY Scheduled PRN Acetaminophen* (Tylenol Extra Strength*), 500 MG ORAL DAILY PRN for Mild Pain ( Pain Scale 1-3), (Reported) Al Hydroxide/mg Hydroxide (Mag-Al Liquid), 30 ML ORAL Q6H PRN Albuterol Sulfate* (Albuterol Sulfate Mdi*), 2 PUFF INH Q4H PRN for cough/ wheezing Guaifenesin/Codeine Phos* (Robitussin Ac*), 5 ML ORAL Q6H PRN for For Cough, ( Reported) Miscellaneous Medications Ipratropium/Albuterol Sulfate (DuoNeb 0.5-3(2.5)mg/3ml), 3 ML HHN, (Reported) Patient History History Provided By: Patient, Medical Record, PMD Healthcare decision maker Resuscitation status Full Code Advanced Directive on File Past Medical/Surgical History Past Medical/Surgical History: (1) Anxiety disorder (2) Major depression (3) DM circ dis type I (4) Generalized osteoarthrosis (5) Upper respiratory infection (6) Upper respiratory infection (7) Urinary tract infection (8) Abdominal pain, right upper quadrant (9) Back injury (10) Back pain (11) Diabetes (12) Dyspnea (13) Sarcoid (14) Bronchitis (15) Pneumonia (16) HTN (hypertension) (17) Pacemaker (18) Shortness of breath dyspnea (19) Dyspnea (20) ACS (acute coronary syndrome) (21) Asthma attack (22) Acute exacerbation of chronic obstructive pulmonary disease (23) DM (diabetes mellitus), type 1 uncontrolled with peripheral vascular complication (24) History of CHF (congestive heart failure) (25) Knee contusion (26) Asthma exacerbation (27) [id number] (28) Arthritis (29) COPD (chronic obstructive pulmonary disease) (30) Generalized weakness (31) CHF (congestive heart failure) Review of Systems Psychiatric: Reports: prior hx, anxiety, depressed feelings, emotional problems Physical Exam General Appearance: WD/WN, no apparent distress, alert Neurologic: oriented x 3, responsive, depressed affect Last 24 Hour Vital Signs Date Time Temp Pulse Resp B/P (MAP) Pulse Ox O2 Delivery O2 Flow Rate FiO2 01/10/19 09:17 130/60 01/10/19 09:17 60 130/60 01/10/19 09:00 Nasal Cannula 2.0 01/10/19 08:00 61 01/10/19 08:00 97.0 60 21 130/60 (83) 97 01/10/19 04:00 60 01/10/19 04:00 96.9 72 16 140/60 (86) 97 01/10/19 03:25 68 16 Room Air 21 01/10/19 00:00 60 01/10/19 00:00 95.4 60 18 148/59 (88) 95 01/09/19 21:00 Nasal Cannula 2.0 01/09/19 20:00 63 01/09/19 20:00 97.7 60 18 148/57 (87) 97 01/09/19 16:00 97.8 64 20 135/66 (89) 96 01/09/19 16:00 63 01/09/19 12:00 62 01/09/19 12:00 98.3 60 19 148/53 (84) 99 Intake and Output 01/09/19 01/10/19 19:00 07:00 Intake Total 120 ml Output Total 0 ml 2 ml Balance 0 ml 118 ml Intake Oral 120 ml Output Urine Total 0 ml 2 ml Height (Feet): 5 Height (Inches): 5.00 Weight (Pounds): 283 Medications Current Medications Medications (Trade) Dose Ordered Sig/Haider Route PRN Reason Start Time Stop Time Status Last Admin Dose Admin Acetaminophen (Tylenol) 650 mg Q6H PRN ORAL Mild Pain/Temp > 100.5 01/08/19 18:00 02/07/19 17:59 01/09/19 06:35 Acetaminophen/ Hydrocodone Bitart (Sabine 10/325) 1 tab Q6H PRN ORAL Severe Pain (Pain Scale 7-10) 01/08/19 18:00 01/15/19 17:59 01/10/19 09:31 Acetaminophen/ Hydrocodone Bitart (Sabine 5/325) 1 tab Q6H PRN ORAL Moderate Pain (Pain Scale 4-6) 01/08/19 18:00 01/15/19 17:59 01/09/19 09:43 Albuterol Sulfate (Proventil MDI) 2 puff Q4H PRN INH cough/wheezing 01/08/19 18:00 02/07/19 17:59 Albuterol/ Ipratropium (Albuterol/ Ipratropium) 3 ml Q4H PRN HHN Shortness of Breath 01/08/19 18:00 01/13/19 17:59 Aspirin (Ecotrin) 81 mg DAILY ORAL 01/09/19 09:00 02/08/19 08:59 01/10/19 09:17 Carvedilol (Coreg) 12.5 mg DAILY ORAL 01/09/19 09:00 02/08/19 08:59 01/10/19 09:17 Dextrose (Dextrose 50%) 25 ml Q30M PRN IV Hypoglycemia 01/08/19 18:00 02/07/19 17:59 Dextrose (Dextrose 50%) 50 ml Q30M PRN IV Hypoglycemia 01/08/19 18:00 02/07/19 17:59 Furosemide (Lasix) 20 mg DAILY ORAL 01/09/19 09:00 02/08/19 08:59 01/10/19 09:16 Heparin Sodium (Porcine) (Heparin 5000 units/ml) 5,000 units EVERY 12 HOURS SUBQ 01/08/19 21:00 02/07/19 20:59 01/10/19 09:26 Insulin Aspart (NovoLOG) BEFORE MEALS AND HS SUBQ 01/08/19 21:00 02/07/19 20:59 01/10/19 06:05 Irbesartan (Avapro) 300 mg DAILY ORAL 01/09/19 09:00 02/08/19 08:59 01/10/19 09:17 Magnesium Hydroxide (Mom) 30 ml DAILY ORAL 01/09/19 09:00 02/08/19 08:59 01/10/19 09:17 Ondansetron HCl (Zofran) 4 mg Q6H PRN IVP Nausea & Vomiting 01/08/19 18:00 02/07/19 17:59 01/09/19 09:42 Potassium Chloride (K-Dur) 20 meq DAILY ORAL 01/09/19 09:00 02/08/19 08:59 01/10/19 09:16 Assessment/Plan Problem List: (1) Major depression ICD Codes: F32.9 - Major depressive disorder, single episode, unspecified SNOMED: 606348151 (2) Anxiety disorder ICD Codes: F41.9 - Anxiety disorder, unspecified SNOMED: 936157378 Assessment/Plan Trazodone 50mg po qhs Lexapro 10mg po qam The pt was educated about compliance Sonny Diaz MD Jan 10, 2019 10:39
--- NOTE | 2019-01-10 10:59 | General Progress Note ---
Assessment/Plan Assessment/Plan LBP due to spondylosis - pain control D. Neuropathy - use Neurontin. Dc home. Subjective Allergies: Coded Allergies: AZITHROMYCIN (Verified Allergy, Intermediate, ITCHINESS, 10/15/13) QUESTIONABLE ALLERGIC RXN BUT PT STARTED ITCHING AFTER BEING GIVEN A DOSE BUT PT NOT SURE Subjective No new c/o Objective Last 24 Hour Vital Signs Date Time Temp Pulse Resp B/P (MAP) Pulse Ox O2 Delivery O2 Flow Rate FiO2 01/10/19 09:17 130/60 01/10/19 09:17 60 130/60 01/10/19 09:00 Nasal Cannula 2.0 01/10/19 08:00 61 01/10/19 08:00 97.0 60 21 130/60 (83) 97 01/10/19 04:00 60 01/10/19 04:00 96.9 72 16 140/60 (86) 97 01/10/19 03:25 68 16 Room Air 21 01/10/19 00:00 60 01/10/19 00:00 95.4 60 18 148/59 (88) 95 01/09/19 21:00 Nasal Cannula 2.0 01/09/19 20:00 63 01/09/19 20:00 97.7 60 18 148/57 (87) 97 01/09/19 16:00 97.8 64 20 135/66 (89) 96 01/09/19 16:00 63 01/09/19 12:00 62 01/09/19 12:00 98.3 60 19 148/53 (84) 99 Intake and Output 01/09/19 01/10/19 19:00 07:00 Intake Total 120 ml Output Total 0 ml 2 ml Balance 0 ml 118 ml Intake Oral 120 ml Output Urine Total 0 ml 2 ml Height (Feet): 5 Height (Inches): 5.00 Weight (Pounds): 283 Objective Blind Morbidly Obese CV RR lungs CTA Abd SNT. BS + E No CC. +2 edema. Abbey Lozano MD Jan 10, 2019 10:59
[2019-01-10 12:00] VITALS: BP 123/46
--- NOTE | 2019-01-10 15:25 | NUR ---
NURSE NOTES: Discharge instruction is given, patient verbalized understanding. Heart monitor and IV removed, Inventory check done. Patient is in stable condition. Patient is discharged with Darci Medina (son) via private car.
[2019-01-10] MEDS ORDERED: TraZODone 50mg tab ORAL SCH (21:00)
--- NOTE | 2019-01-12 08:26 | Discharge Summary ---
Discharge Summary Discharge Summary _ DATE OF ADMISSION: 01/08/2019 DATE OF DISCHARGE: 01/10/2019 DISCHARGED BY: REASON FOR ADMISSION: 83 years old female with past medical history of type 2 diabetes mellitus, hypertensive cardiovascular disease, permanent pacemaker, advanced diabetic retinopathy with blindness, diastolic heart failure, COPD, degenerative joint disease, recent onset of diabetic nephropathy with close to nephritic range proteinuria, presented with complaints of mid back pain. Upon evaluation vital signs were stable. Laboratory workup revealed no leukocytosis , stable hemoglobin and hematocrit. Stable electrolytes. BUN 25, creatinine 1.2. Glucose 260. Hemoglobin A1c 8.9. Lactic acid 1.5. Stable LFT and lipase. Troponin negative. Pro BNP 240. EKG revealed atrial paced rhythm. . Albumin 3.0. TSH within normal range. Urinalysis revealed no evidence of UTI. CT of the abdomen and pelvis revealed mild diffuse colonic fecal retention, suggestive of constipation. Otherwise no acute findings. Patient was admitted for further management CONSULTANTS: psychiatrist Dr. Diaz [facility] COURSE: Patient admitted to telemetry floor. Pain management was addressed. Home medications were continued. Low back pain was secondary to spondylosis . Pain management was optimized , and pain was eventually controlled. Neurontin was used for management of diabetic neuropathy. Antiplatelet therapy with aspirin was continued. Blood pressure was managed with beta-tita and angiotensin receptor tita and remained stable. Maintenance dose of diuretic was continued with close monitoring of volumes and cardiorenal parameters. DVT prophylaxis provided. Blood sugar was managed with sliding scale of insulin. Patient will need further optimization of anti-glycemic regimen as outpatient since hemoglobin A1c not at goal yet. Pulse oximetry was stable on room air. Regimen instituted. Supportive care provided. Psychiatrist seen and evaluated patient. Psychiatric medication regimen was optimized. Patient was educated about compliance with medication regimen. Patient clinically stabilized and was stable for discharge home. FINAL DIAGNOSES: Low back pain due to spondylosis resolved Diabetic neuropathy Type 2 diabetes mellitus Noncompliance Hypertensive cardiovascular disease Recent onset of diabetic nephropathy with close to nephritic range proteinuria Advanced diabetic retinopathy with blindness Degenerative joint disease Glaucoma Diastolic heart failure COPD Depression Anxiety disorder DISCHARGE MEDICATIONS: See Medication Reconciliation list. DISCHARGE INSTRUCTIONS: Patient was discharged home with home health services. Follow up with primary care provider in one week. Reenforced compliance with medication regimen. I have been assigned to dictate discharge summary for this account. I was not involved in the patient's management. Brigida Richards NP Jan 12, 2019 08:26
== END 2019-01-10 15:25 | disposition home or self-care (01) | DRG 552 ==
LOC: EMR 08:33 → EDBEDREQ 14:37 → 2E 14:55
DX: M47.896 Other spondylosis, lumbar region (principal); I50.30 Unspecified diastolic (congestive) heart failure; I13.0 Hypertensive heart and chronic kidney disease with heart failure and stage 1 through stage 4 chronic kidney disease, or unspecified chronic kidney disease; Z68.42 Body mass index [BMI] 45.0-49.9, adult; Z91.19 Patient's noncompliance with other medical treatment and regimen; E11.22 Type 2 diabetes mellitus with diabetic chronic kidney disease; N18.9 Chronic kidney disease, unspecified; E11.319 Type 2 diabetes mellitus with unspecified diabetic retinopathy without macular edema; E11.40 Type 2 diabetes mellitus with diabetic neuropathy, unspecified; E66.01 Morbid (severe) obesity due to excess calories; H40.9 Unspecified glaucoma; Z79.82 Long term (current) use of aspirin; Z79.4 Long term (current) use of insulin; Z88.1 Allergy status to other antibiotic agents; J44.9 Chronic obstructive pulmonary disease, unspecified; F32.9 Major depressive disorder, single episode, unspecified; F41.9 Anxiety disorder, unspecified; H54.7 Unspecified visual loss
CPT/HCPCS: 36415; 74176; 80053; 81001; 82962; 83036; 83605; 83690; 83880; 84443; 84484; 85025; 85610; 85730; 87040; 94664; 96374; 99285; J1815; J2405; J8499

== ENCOUNTER 2019-04-17 10:15 | Inpatient (IN) | payer MEDICARE, MEDICAID ==
[~2019-04-17] VITALS: Ht 165.1 cm; Wt 123.8 kg
[~2019-04-17 10:15] MED LIST changes: +MILK OF MA400 MG/51 ORAL
[2019-04-17 10:29] VITALS: BP 99/63
--- NOTE | 2019-04-17 10:34 | NUR ---
ED Nurse Note: PT FROM HOME CAME IN DUE TO CP AND SOB SINCE LAST NIGHT. PT STATES SHE IS NORMALLY ON HOME OXYGEN AND WITH HX OF CHF. PT DENIES CP AT THIS TIME BUT STILL WITH SOB. PT IS AAO X4, AMBULATES WITH ASSIST. SOB AT REST. SAT 98-100 5 IN ROOM AIR. SKIN IS WARM TO TOUCH. DR LEGGETT AWARE.
--- NOTE | 2019-04-17 10:35 | NUR ---
ED Nurse Note: COLLECTED BLOOD SPECIMEN AND SENT.
--- NOTE | 2019-04-17 11:01 | NUR ---
ED Nurse Note: LEASE ATTENDANT AT THE BED SIDE FOR CXR.
[2019-04-17 11:19] LABS: EOSINOPHILS % (AUTO) 2.6 % (0.0-3.0); HEMATOCRIT 43.2 % (37.0-47.0); LYMPHOCYTES % (AUTO) 24.1 % (20.0-45.0); MEAN CORPUSCULAR VOLUME 73 FL (80-99); NEUTROPHILS % (AUTO) 65.4 % (45.0-75.0); PLATELET COUNT 270 K/UL (150-450); RED BLOOD COUNT 5.89 M/UL (4.20-5.40); RED CELL DISTRIBUTION WIDTH 12.5 % (11.6-14.8); WHITE BLOOD COUNT 8.4 K/UL (4.8-10.8)
--- NOTE | 2019-04-17 11:23 | Diagnostic Imaging Report ---
INDICATION: Shortness of breath COMPARISON: Chest x-ray dated 10/13/18 FINDINGS: Single frontal view demonstrates a left chest wall pacemaker with leads in place. Parahilar opacity with lower lung zone increased pulmonary markings. No pleural effusions. The visualized osseous structures are within normal limits. IMPRESSION: Left chest wall pacemaker with leads in place. Parahilar opacity with lower lung zone increased pulmonary markings suggestive of congestion.
[2019-04-17 11:42] LABS: ANION GAP 6 mmol/L (5-15); BLOOD UREA NITROGEN 28 mg/dL (7-18); CALCIUM 9.7 MG/DL (8.5-10.1); CARBON DIOXIDE 24 MMOL/L (21-32); CHLORIDE 104 MMOL/L (98-107); CREATININE 1.3 MG/DL (0.55-1.30); POTASSIUM 4.5 MMOL/L (3.5-5.1); SODIUM 134 MMOL/L (136-145)
[2019-04-17 11:56] LABS: ALANINE AMINOTRANSFERASE 26 U/L (12-78); ALBUMIN 2.7 G/DL (3.4-5.0); ALBUMIN/GLOBULIN RATIO 0.6 (1.0-2.7); ALKALINE PHOSPHATASE 101 U/L (46-116); ASPARTATE AMINO TRANSFERASE 20 U/L (15-37); BILIRUBIN,TOTAL 0.2 MG/DL (0.2-1.0); CKMB 0.8 NG/ML (0.0-3.6); CREATINE KINASE 87 U/L (26-308)
[2019-04-17 12:30] VITALS: BP 146/62
--- NOTE | 2019-04-17 13:07 | Emergency Room Report ---
History of Present Illness General Chief Complaint: Dyspnea/Respdistress Source: Patient Present Illness HPI 83-year-old female presents ED for evaluation. Patient complaining of shortness of breath and chest pain since last night. States she took some nitroglycerin the chest pain and it resolved but it came back. Denies chest pain at this time. States she also feels short of breath. History of CHF. Notes some leg swelling. Also states she is on home oxygen but felt weak and could not get her oxygen at home. Denies fevers or chills. No other aggravating relieving factors. Denies any other associated symptoms Allergies: Coded Allergies: AZITHROMYCIN (Verified Allergy, Intermediate, ITCHINESS, 10/15/13) QUESTIONABLE ALLERGIC RXN BUT PT STARTED ITCHING AFTER BEING GIVEN A DOSE BUT PT NOT SURE Patient History Past Medical History: DM, HTN, CHF, COPD Past Surgical History: pacemaker Pertinent Family History: none Social History: Denies: smoking, alcohol use, drug use Last Menstrual Period: 30years Now: No Immunizations: UTD Reviewed Nursing Documentation: PMH: Agreed; PSxH: Agreed Nursing Documentation-PMH Hx Hypertension: Yes Hx Pacemaker: Yes Hx Asthma: Yes Hx COPD: Yes Hx Diabetes: Yes Hx Cancer: No Hx Gastrointestinal Problems: Yes Hx Neurological Problems: No Hx Tremors: Yes Hx Vertigo: Yes Hx Dizziness: Yes Hx Syncope: Yes Hx Headaches: Yes Hx Weakness: Yes Hx Fatigue: Yes Review of Systems All Other Systems: negative except mentioned in HPI Physical Exam Vital Signs Date Time Temp Pulse Resp B/P (MAP) Pulse Ox O2 Delivery O2 Flow Rate FiO2 04/17/19 10:24 97.7 92 16 72/58 (63) 98 Room Air Sp02 EP Interpretation: reviewed, normal General Appearance: no apparent distress, alert, GCS 15, non-toxic, obese Head: normocephalic, atraumatic Eyes: bilateral eye normal inspection, bilateral eye PERRL ENT: hearing grossly normal, normal pharynx, no angioedema, normal voice Neck: full range of motion, supple/symm/no masses Respiratory: chest non-tender, lungs clear, normal breath sounds, speaking full sentences Cardiovascular #1: regular rate, rhythm, no edema Cardiovascular #2: 2+ carotid (R), 2+ carotid (L), 2+ radial (R), 2+ radial (L) , 2+ dorsalis pedis (R), 2+ dorsalis pedis (L) Gastrointestinal: normal bowel sounds, non tender, soft, non-distended, no guarding, no rebound Rectal: deferred Genitourinary: normal inspection, no CVA tenderness Musculoskeletal: back normal, gait/station normal, normal range of motion, swelling - 2+ pitting edema b/l LEs Neurologic: alert, oriented x3, responsive, motor strength/tone normal, sensory intact, speech normal Psychiatric: judgement/insight normal, memory normal, mood/affect normal, no suicidal/homicidal ideation Reflexes: 3+ bicep (R), 3+ bicep (L), 3+ tricep (R), 3+ tricep (L), 3+ knee (R) , 3+ knee (L) Skin: normal color, no rash, warm/dry, well hydrated Lymphatic: no adenopathy Medical Decision Making Diagnostic Impression: Primary Impression: ACS (acute coronary syndrome) Additional Impressions: CHF (congestive heart failure) Qualified Codes: I50.9 - Heart failure, unspecified COPD (chronic obstructive pulmonary disease) Qualified Codes: J44.9 - Chronic obstructive pulmonary disease, unspecified ER Course Hospital Course 83-year-old female presents ED complaining of shortness of breath, chest pain Differential diagnoses include: NJ/unstable angina, contusion, muscle strain, PTX, rib fracture Clinical course Patient placed on stretcher. on surveillance monitor. After initial history and physical I ordered labs, EKG, chest x-ray labs reviewed- no leukocytosis, hemoglobin/hematocrit stable, electrolytes ok, troponins negative, BNP elevated EKG - NSR, no acute ischemic changes interpreted by me Chest x-ray- cardiomegaly, L sided effusion. pacemaker ASA given. Lasix given. patient feels better on Case discussed with Dr. Bojorquez and he agreed to accept the patient to his service for further care and support I. I feel this is a highly complex case requiring extensive working including EKG/Rhythm strip, Xray/CT/US, Blood/urine lab work, repeat exams while in ED, and administration of strong opiates/narcotics for pain control, admission to hospital or close patient follow up. Diagnosis - ACS, CHF, COPD admitted to telemetry in serious condition Labs Test 04/17/19 10:30 04/17/19 11:20 White Blood Count 8.4 K/UL (4.8-10.8) Red Blood Count 5.89 M/UL (4.20-5.40) Hemoglobin 13.0 G/DL (12.0-16.0) Hematocrit 43.2 % (37.0-47.0) Mean Corpuscular Volume 73 FL (80-99) Mean Corpuscular Hemoglobin 22.1 PG (27.0-31.0) Mean Corpuscular Hemoglobin Concent 30.1 G/DL (32.0-36.0) Red Cell Distribution Width 12.5 % (11.6-14.8) Platelet Count 270 K/UL (150-450) Mean Platelet Volume 6.4 FL (6.5-10.1) Neutrophils (%) (Auto) 65.4 % (45.0-75.0) Lymphocytes (%) (Auto) 24.1 % (20.0-45.0) Monocytes (%) (Auto) 7.0 % (1.0-10.0) Eosinophils (%) (Auto) 2.6 % (0.0-3.0) Basophils (%) (Auto) 1.0 % (0.0-2.0) Troponin I 0.010 ng/mL (0.000-0.056) Sodium Level 134 MMOL/L (136-145) Potassium Level 4.5 MMOL/L (3.5-5.1) Chloride Level 104 MMOL/L (98-107) Carbon Dioxide Level 24 MMOL/L (21-32) Anion Gap 6 mmol/L (5-15) Blood Urea Nitrogen 28 mg/dL (7-18) Creatinine 1.3 MG/DL (0.55-1.30) Estimat Glomerular Filtration Rate mL/min (>60) Glucose Level 304 MG/DL (74-106) Calcium Level 9.7 MG/DL (8.5-10.1) Total Bilirubin 0.2 MG/DL (0.2-1.0) Aspartate Amino Transf (AST/SGOT) 20 U/L (15-37) Alanine Aminotransferase (ALT/SGPT) 26 U/L (12-78) Alkaline Phosphatase 101 U/L (46-116) Total Creatine Kinase 87 U/L (26-308) Creatine Kinase MB 0.8 NG/ML (0.0-3.6) Creatine Kinase MB Relative Index 0.9 Pro-B-Type Natriuretic Peptide 129 pg/mL (0-125) Total Protein 7.0 G/DL (6.4-8.2) Albumin 2.7 G/DL (3.4-5.0) Globulin 4.3 g/dL Albumin/Globulin Ratio 0.6 (1.0-2.7) EKG Diagnostic Results Rate: normal Rhythm: NSR ST Segments: no acute changes ASA given to the pt in ED: Yes Rhythm Strip Diag. Results EP Interpretation: yes Rhythm: NSR, no PVC's, no ectopy Chest X-Ray Diagnostic Results Chest X-Ray Diagnostic Results : Chest X-Ray Ordered: Yes # of Views/Limited/Complete: 1 View Indication: Shortness of Breath EP Interpretation: Yes Interpretation: no pneumothorax, other - CHF, L sided effusion. pacemaker Impression: Other - CHF Electronically Signed by: Electronically signed by Royce Menendez MD Last Vital Signs Date Time Temp Pulse Resp B/P (MAP) Pulse Ox O2 Delivery O2 Flow Rate FiO2 04/17/19 10:29 92 16 Room Air 04/17/19 10:29 97.7 99/63 99 Status: improved Disposition: ADMITTED INPATIENT Condition: Serious Referrals: Abbey Lozano MD (PCP) Royce Menendez MD Apr 17, 2019 13:07
--- NOTE | 2019-04-17 14:21 | NUR ---
ED Nurse Note: Pt resting on her bed with no distress at this time. Collected 400ml of urine after lasix med. VSS.
[2019-04-17 14:35] VITALS: BP 167/58
[2019-04-17 16:35] VITALS: BP 150/64
--- NOTE | 2019-04-17 16:42 | NUR ---
ED Nurse Note: TRIED TO GIVE REPORT TO ICU. RECEIVING RN MENDEL UNABLE TO TAKE REPORT AT THIS TIME. ER CHARGE NURSE NOTIFIED.
--- NOTE | 2019-04-17 16:49 | NUR ---
ED Nurse Note: REPORT GIVEN TO BULMARO HIGGINBOTHAM OF ICU.
--- NOTE | 2019-04-17 17:10 | NUR ---
NURSE NOTES: Received pt from ANCELMO Sanchez RN. Tele over-flow to [facility] room 236-1, transferred via gurney without incidence. Patient is A/Ox4; able to follow commands and communicate needs. Denies CP, or discomfort at this time. No signs of respiratory distress, RA, spo2 95%. Bilateral b/s diminished. BP 156/95. Afebrile. Left upper chest pacemaker noted, occasional A-pacing, HR 62. IV site on LAC 20G patent and asymptomatic, saline locked. abd round, nontender, soft. Received admission orders from Dr. Whitfield, see order hx. Patient has a walker, no bolaños/wallet, no phone, only clothes and x1 pair jewelry. x3 home medications recorded and given to pharmacy, ticket #[id number]. Dr. Jose called for cardiology consult by Dr. eNely. Skin assessment done, no skin issues. Bed locked, alarmed and in lowest position. Will continue plan of care.
--- NOTE | 2019-04-17 19:13 | NUR ---
HAND-OFF: Report given to ANAHY Valdovinos. Patient resting in bed with eyes closed, no sx of discomfort.
--- NOTE | 2019-04-17 19:45 | Consultation ---
DATE OF CONSULTATION: 04/17/2019 CARDIOLOGY CONSULT: CONSULTING PHYSICIAN: Darci Jose M.D. REFERRING PHYSICIAN: Abbey Lozano M.D. REASON FOR CONSULT: Congestive heart failure and chest pain. HISTORY OF PRESENT ILLNESS: This 83-year-old female has a history of coronary artery disease, diastolic congestive heart failure due to hypertension and a permanent pacemaker. She presented to the emergency room with chest pain. It started last night and shortness of breath accompanying it. She took nitroglycerin, which improved the pain, but it recurred. On arrival to the emergency room however her pain had resolved. The patient has had shortness of breath for several days and some leg swelling. She is on home oxygen, but was unable to get it put on her due to weaknesses and leg swelling today. The patient has been compliant with medications. The patient had a myocardial perfusion scan at this facility in 2017 that revealed no signs of reversible ischemia. Her permanent pacemaker was implanted approximately [address] Sakshi Conroy. She is not pacer dependent. PAST MEDICAL HISTORY: Includes permanent pacemaker, hypertension, COPD, type 2 diabetes mellitus, gastroesophageal reflux disease, essential tremor, glaucoma, bilateral cataracts, osteoarthritis. FAMILY HISTORY: Noncontributory. SOCIAL HISTORY: Nonsmoker. No alcohol or substance abuse. MEDICATIONS: Reviewed and reconciled. ALLERGIES: Azithromycin, rash. REVIEW OF SYSTEMS: The vision is unchanged, but poor due to glaucoma and cataracts. She is slightly hard of hearing. Her diabetes is managed with oral therapy. There is no history of thyroid disorder. Her lipid parameters are not known. She has not had any change in bowel habits. She does not recall when her pacemaker was last checked. She does have chronic kidney disease due to hypertension and diabetes, but has not had dialysis needs. There is no history of seizure or stroke. There is no history of asthma or abnormal blood clotting. In the past, there was a possible diagnosis of sarcoidosis noted in some records, but no apparent confirmation. PHYSICAL EXAMINATION: VITAL SIGNS: In the emergency room, blood pressure was initially 72/58, heart rate 92, and respiratory rate 16 with oxygen saturation 98% on room air. Now, her blood pressure range is 146/62 with heart rate 80 and respiratory rate 16. HEENT: Conjunctivae pink. Sclerae are anicteric. Oropharynx clear. NECK: Supple. Jugular venous pressure elevated. LUNGS: With bilateral rales. Chest wall with pacemaker pocket noted. BREASTS: Without discrete masses. CARDIAC: Regular rhythm and rate. Normal S1, S2. A 1/6 systolic murmur at apex. ABDOMEN: Soft, nontender. EXTREMITIES: With 1+ dependent edema. NEUROLOGIC: Nonfocal. DIAGNOSTIC AND LABORATORY DATA: Chest x-ray reveals left-sided chest wall pacemaker. Lower lung pulmonary marking suggesting congestive heart failure and perihilar opacity. Labs, white count 8.4, hemoglobin 13. Sodium 134, potassium 4.5, bicarbonate 24, BUN 28, creatinine 1.3, glucose 304. Hemoglobin A1c 10.2. Troponin #1 is negative. Albumin 2.7. IMPRESSION: 1. Acute coronary syndrome. 2. Acute on chronic diastolic congestive heart failure. 3. Hypotensive episode, resolved. 4. Diabetes mellitus type 2 with poor overall control. 5. Moderate protein-calorie malnutrition. 6. Chronic kidney disease with possible acute component. 7. Hypertensive heart disease, permanent pacemaker. PLAN: 1. Cardiac monitoring. 2. Serial troponins. 3. Topical nitrates. 4. Diuresis. 5. Titrate antianginal regimen. 6. Continue anti-platelet therapy. 7. DVT prophylaxis. 8. If not recently done, a pacemaker interrogation will be arranged. 9. Follow up chest x-ray regarding perihilar opacity will be obtained. Darci Jose M.D. DR: ALYCE JOB#: [id number] CC:
--- NOTE | 2019-04-17 19:54 | NUR ---
NURSE NOTES: Received patient from ANAHY Gutierrez. patient is resting in bed with eyes closed, arousable to voice and responsive to verbal commands. denies pain at this time. patient is on room air. no s/sx of respiratory distress at this time. IV site is patent and intact. bed in lowest position, siderails up X2, call light within reach. will continue to monitor.
[2019-04-17 21:00] VITALS: BP 132/63
[2019-04-17] MEDS: Heparin 5000 units/ml inj SUBQ SCH (21:09)
[2019-04-17] MEDS: NovoLOG Insulin Flexpen SUBQ SCH (21:10)
[2019-04-18] VITALS: BP 139/58
[2019-04-18 04:47] VITALS: BP 136/60
[2019-04-18 05:28] LABS: ALANINE AMINOTRANSFERASE 27 U/L (12-78); ALBUMIN 2.9 G/DL (3.4-5.0); ALBUMIN/GLOBULIN RATIO 0.7 (1.0-2.7); ALKALINE PHOSPHATASE 103 U/L (46-116); ANION GAP 7 mmol/L (5-15); ASPARTATE AMINO TRANSFERASE 20 U/L (15-37); BILIRUBIN,TOTAL 0.3 MG/DL (0.2-1.0); BLOOD UREA NITROGEN 27 mg/dL (7-18); CALCIUM 10.3 MG/DL (8.5-10.1); CARBON DIOXIDE 25 MMOL/L (21-32); CHLORIDE 104 MMOL/L (98-107); CHOLESTEROL 115 MG/DL (< 200); CREATININE 1.1 MG/DL (0.55-1.30); HDL CHOLESTEROL 36 MG/DL (40-60); POTASSIUM 4.6 MMOL/L (3.5-5.1); SODIUM 136 MMOL/L (136-145); TRIGLYCERIDES 105 MG/DL (30-150)
[2019-04-18] MEDS: Nitroglycerin 2% oint pkt TOPIC SCH ×3 (06:03→17:54)
[2019-04-18] MEDS: NovoLOG Insulin Flexpen SUBQ SCH ×4 (06:04→22:13)
--- NOTE | 2019-04-18 07:30 | NUR ---
HAND-OFF: Report given to ANAHY Oneal. patient is in stable condition.
--- NOTE | 2019-04-18 07:35 | NUR ---
NURSE NOTES: Received report from Gerardo Joel RN and Lacho Carrion RN. Patient awake in bed, alert and oriented x 4, able to make needs known. On room air, respirations even and unlabored. Boles catheter patent and draining well. Left AC 20g saline lock intact and asymptomatic. Bed locked in lowest position with side rails up x 3. All needs attended to. Call light within reach. Will continue to monitor.
[2019-04-18 08:00] VITALS: BP 150/57
[2019-04-18] MEDS ORDERED: Carvedilol 12.5mg tab ORAL SCH (09:00)
[2019-04-18] MEDS: Aspirin EC 81mg tab ORAL SCH (09:11)
[2019-04-18] MEDS: Heparin 5000 units/ml inj SUBQ SCH ×2 (09:11→22:15)
[2019-04-18] MEDS: Carvedilol 12.5mg tab ORAL SCH ×2 (09:12→17:54)
--- NOTE | 2019-04-18 09:25 | NUR ---
INSTITUTE DIRECTORPHOTOGEOLOGIST 34 Y/O FEMALE BIBA FROM HOME TO [facility] CC:DYSPNEA/RESPIRATORY DISTRESS SI:ACS . CHF VS: BP 72/58, P 92, T 97.7, RR 27, SpO2 98 RBC 5.89, Na 134, BUN 28, Glucose 304, H-A1c 10.2 CXR: Parahilar opacity with lower lung zone increased pulmonary markings suggestive of congestion. IS:NS x500ml IV ASPIRIN 325mg LASIX 40mg IV ADMITTED TO SDU DCP: RETURN HOME
--- NOTE | 2019-04-18 10:53 | NUR ---
RADIOLOGY DEPT., CHEST X-RAY COMPLETED.-P.DYE
--- NOTE | 2019-04-18 11:52 | Diagnostic Imaging Report ---
Indication: Abnormal breath sounds Comparison: April 17, 2019 A single view chest radiograph was obtained. Findings: Mild vascular congestion may be present but the appearance is stable. Heart is borderline enlarged. There is a asymmetric on the left. There is likely some atelectasis or scarring in the right minor fissure region. IMPRESSION: No significant change compared to the previous day
[2019-04-18 12:00] VITALS: BP 126/75
[2019-04-18 16:00] VITALS: BP 118/64
--- NOTE | 2019-04-18 17:30 | History and Physical Report ---
DATE OF ADMISSION: 04/17/2019 CHIEF COMPLAINT: Chest pain. HISTORY OF PRESENT ILLNESS: This is an 83-year-old female, who presented to the emergency department complaining of chest pain 2 days ago. The patient is high risk having multiple risk factors such as type 2 diabetes mellitus, morbid obesity, hypertension, and diabetic nephropathy. The patient was seen already by Dr. Darci Jose, network administrator. PAST MEDICAL HISTORY: 1. Type 2 diabetes mellitus. 2. Diabetic nephropathy. 3. Diabetic retinopathy with blindness. 4. COPD. 5. Noncompliance. 6. Depression. 7. Status post pacemaker. MEDICATIONS: Tylenol p.r.n., baby aspirin, Coreg, clonidine, Lasix, Robitussin p.r.n., insulin sliding scale, Avapro, nitroglycerin. ALLERGIES: Azithromycin. FAMILY HISTORY: Unremarkable. SOCIAL HISTORY: She lives at home. HABITS: She is nonsmoker, nondrinker. There is no history of illicit drug abuse. 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 ENDOCRINE: Significant for multiorgan type 2 diabetes mellitus with diabetic retinopathy, nephropathy, neuropathy. RESPIRATORY: She has orthopnea, paroxysmal nocturnal dyspnea, and dyspnea on effort. CARDIAC: Please refer to history of present illness and past medical history. GASTROINTESTINAL: No history of hematochezia, melena, hematemesis, diarrhea, or constipation. NEUROLOGIC: No history of stroke, syncope, or Parkinson disease. She has peripheral diabetic neuropathy. PHYSICAL EXAMINATION: GENERAL: This is an elderly female, who is in no acute distress. VITAL SIGNS: Blood pressure 150/57, pulse 67 and regular, respirations 22, temperature 98.8 axillary. HEENT: She is blind. She has left conjunctival injection. NECK: Supple. Trachea midline. There was no lymphadenopathy or thyromegaly. LUNGS: Clear to auscultation and percussion. HEART: Regular rate and rhythm without rubs, murmurs, or gallops. ABDOMEN: Soft and nontender. Bowel sounds were active. EXTREMITIES: No clubbing, cyanosis, or edema. NEUROLOGIC: She is legally blind. Otherwise, cranial nerves II through XII intact. LABORATORY AND ANCILLARY DATA: CBC within normal limits. Chemistry, glucose on admission 304, today 230. Troponin levels negative. Serum albumin 2.7 to 2.9. EKG, normal sinus rhythm. No signs of acute ischemia. Atrial paced rhythm with prolonged AV conduction. ASSESSMENT: 1. Atypical chest pain. 2. Type 2 diabetes mellitus. 3. Diabetic nephropathy. 4. Diabetic retinopathy with blindness. 5. COPD. 6. Noncompliance. 7. Depression. 8. Status post pacemaker. PLAN: 1. Rule out acute ischemia protocol. 2. Continue home medications. Abbey Lozano M.D. DR: ADELINA JOB#: [id number] CC:
--- NOTE | 2019-04-18 19:21 | Cardiology Report ---
APPROVED REPORT EKG Measurement Heart [id number] FL [id number] Atrial paced, ventricular sensed rhythm. Electronic pacemaker. Abnormal ECG
--- NOTE | 2019-04-18 19:24 | Cardiology Report ---
APPROVED REPORT EKG Measurement Heart [id number] Sinus rhythm with marked sinus arrhythmia Minimal voltage criteria for LVH, may be normal variant Nonspecific T wave abnormality Abnormal ECG
--- NOTE | 2019-04-18 19:35 | NUR ---
Received report from ANAHY Oneal. Patient awake in bed, alert and oriented x 4, able to make needs known. On room air, respirations even and unlabored. Boles catheter patent and draining well. Left AC 20g saline lock intact and asymptomatic. Bed locked in lowest position with side rails up x 3. All needs attended to. Call light within reach. Will continue to monitor.
--- NOTE | 2019-04-18 19:54 | NUR ---
HAND-OFF: Report given to ANAHY Dover.
[2019-04-18 20:00] VITALS: BP 134/55
[2019-04-19] VITALS: BP 135/72
--- NOTE | 2019-04-19 00:19 | NUR ---
NURSE NOTES: Received patient from Jazzmine HIGGINBOTHAM. Patient is awake and oriented x4. Patient is on room air, tolerating well, showing no signs of distress. Boles catheter is patent and draining. IV site is Left AC 20g intact and asymptomatic. Bed is locked, placed in lowest position, side rails up x3, call light within reach. Will continue to monitor.
[2019-04-19] MEDS: guaiFENesin w/Codeine 5ml Liq ud ORAL PRN ×3 (01:15→17:15)
--- NOTE | 2019-04-19 01:19 | NUR ---
HAND-OFF: Report given to ANAHY Knight. pt stable at hand-off.
--- NOTE | 2019-04-19 03:15 | Progress Note ---
DATE: 04/18/2019 CARDIOLOGY PROGRESS NOTE SUBJECTIVE: The patient records were reviewed from the outside facilities. Her permanent pacemaker generator was replaced in 2016 with a Alverto device. The patient has no chest pain and less shortness of breath today. OBJECTIVE: VITAL SIGNS: Blood pressure 134/55, pulse 61, and respirations 20. Afebrile. LUNGS: Few rales at the left. CARDIAC: Regular rhythm and rate. Normal S1, S2 with a 1/6 systolic apical murmur. ABDOMEN: Soft and nontender. EXTREMITIES: Trace edema. LABORATORY DATA: Troponins remained negative. BUN 27 and creatinine 1.1. Potassium 4.6. Albumin 2.9. TSH 2.4. Chest x-ray reveals mild vascular congestion. IMPRESSION: 1. Anginal episode, now stabilized. No signs of acute coronary insufficiency presently. 2. Alverto permanent pacemaker. 3. Type 2 diabetes mellitus with nephropathy, retinopathy , and blindness. 4. Chronic obstructive pulmonary disease. 5. Hypertensive heart disease. PLAN: 1. Continue anti-platelet therapy. 2. Maintain current cardiovascular regimen. 3. Transition from topical to oral nitrates. 4. Diuresis. 5. Outpatient pacemaker interrogation by . Darci Jose M.D. DR: ROS JOB#: [id number] CC:
[2019-04-19 04:00] VITALS: BP 136/60
[2019-04-19] MEDS: NovoLOG Insulin Flexpen SUBQ SCH ×4 (06:19→21:00)
--- NOTE | 2019-04-19 07:20 | NUR ---
NURSE NOTES: Report received from ANAHY Bernardo. Observed patient in bed sleeping. Arousable by voice and verbally responsive. Denies pain at this time. No distress noted in room air. IV site intact and patent. F/C intact and draining well. Bed in lowest position. Call light within reach. Will continue to monitor.
--- NOTE | 2019-04-19 07:30 | NUR ---
HAND-OFF: Report given to Josy HIGGINBOTHAM. Patient showing no signs of distress.
[2019-04-19 08:00] VITALS: BP 154/60
[2019-04-19] MEDS: Aspirin EC 81mg tab ORAL SCH (08:48)
[2019-04-19] MEDS: Carvedilol 12.5mg tab ORAL SCH ×2 (08:49→17:15)
[2019-04-19] MEDS: Imdur 30mg tab ORAL SCH (08:49)
[2019-04-19] MEDS: Heparin 5000 units/ml inj SUBQ SCH ×2 (08:50→22:21)
--- NOTE | 2019-04-19 09:53 | NUR ---
TRANSFER TO FLOOR: Patient transferred to Tele via hospital bed. Report given to ANAHY Lopez. Belongings and medications given to RN. Stable condition.
[2019-04-19 12:00] VITALS: BP 115/47
--- NOTE | 2019-04-19 14:01 | General Progress Note ---
Assessment/Plan Assessment/Plan: CP - Per Card D. Retinopathy + Glaucoma -seen by Dr. Estrada - see orders. AODm see orders Subjective Allergies: Coded Allergies: AZITHROMYCIN (Verified Allergy, Intermediate, ITCHINESS, 10/15/13) QUESTIONABLE ALLERGIC RXN BUT PT STARTED ITCHING AFTER BEING GIVEN A DOSE BUT PT NOT SURE Subjective Still c/o CP Objective Last 24 Hour Vital Signs Date Time Temp Pulse Resp B/P (MAP) Pulse Ox O2 Delivery O2 Flow Rate FiO2 04/19/19 12:00 97.4 66 20 115/47 (69) 98 04/19/19 09:00 Room Air 04/19/19 08:49 154/60 04/19/19 08:49 62 154/60 04/19/19 08:49 154/60 04/19/19 08:00 61 04/19/19 08:00 97.4 62 20 154/60 (91) 98 04/19/19 04:00 97.6 61 20 136/60 (85) 98 04/19/19 03:56 60 04/19/19 00:00 97.9 61 20 135/72 (93) 97 04/18/19 23:23 60 04/18/19 21:00 Room Air 04/18/19 20:00 97.7 61 20 134/55 (81) 97 04/18/19 17:54 136/46 04/18/19 17:54 66 136/46 04/18/19 16:00 98.4 69 20 118/64 (82) 97 04/18/19 16:00 64 Intake and Output 04/18/19 04/19/19 18:59 06:59 Intake Total 360 ml 120 ml Output Total 250 ml 400 ml Balance 110 ml -280 ml Intake Oral 360 ml 120 ml Output Urine Total 250 ml 400 ml # Bowel Movements 1 Height (Feet): 5 Height (Inches): 5.00 Weight (Pounds): 277 Objective Blind. Lt eye chemosis. CV RR Lungs CTA Abd SNT. BS + E No Abbey Archuleta MD Apr 19, 2019 14:01
[2019-04-19] MEDS: Levemir Flexpen SUBQ SCH (15:56)
[2019-04-19] MEDS: Cosopt Opth Soln 10 mL Btl BOTH EYES SCH (17:15)
[2019-04-19 17:50] VITALS: BP 120/56
[2019-04-19] MEDS ORDERED: Lexiscan 0.4mg/5ml syringe IV PRN (18:00)
--- NOTE | 2019-04-19 19:06 | NUR ---
HAND-OFF: Report given to GEORGETTE HIGGINBOTHAM.
--- NOTE | 2019-04-19 19:10 | NUR ---
NURSE NOTES: Received pt from ANAHY Lopez. Pt awake, alert, and talkative. Bed in lowest position. Call light within reach. Will continue to monitor
[2019-04-19 20:00] VITALS: BP 101/47
[2019-04-19] MEDS: Albuterol/Ipratropium 3ml neb HHN SCH (20:23)
[2019-04-19] MEDS: Latanoprost 0.005% Opth 2.5ml Soln BOTH EYES SCH (22:18)
[2019-04-20] VITALS: BP 131/54
--- NOTE | 2019-04-20 00:15 | Progress Note ---
DATE: 04/19/2019 CARDIOLOGY PROGRESS NOTE SUBJECTIVE: The patient complains of sharp chest pain associated with cough and some shortness of breath. The patient's monitored rhythm is sinus with pacing. The patient has a Alverto pacemaker that has been interrogated by Dr. Sakshi Conroy as an outpatient, which was placed in 2017. OBJECTIVE: VITAL SIGNS: Blood pressure 115/47, pulse rate 61, respirations 20, afebrile. LUNGS: Chest wall tenderness. Diminished breath sounds. Few rhonchi. HEART: Regular rhythm and rate. Normal S1, S2. ABDOMEN: Soft. EXTREMITIES: No edema. IMPRESSION: 1. Noncardiac chest pain. 2. Pleuritic chest pain. 3. Congestion. 4. Uncontrolled diabetes. 5. Moderate protein-calorie malnutrition. PLAN: 1. Continue antiplatelet and antianginal therapy. 2. Respiratory hygiene and inhaled bronchodilators. 3. Sputum culture. 4. DVT prophylaxis. 5. CAT scan of the chest and venous duplex scan of lower extremities to evaluate for source of pulmonary emboli. Sendy Hummel JOB#: [id number] CC:
[2019-04-20] MEDS: Albuterol/Ipratropium 3ml neb HHN SCH ×5 (01:44→19:38)
[2019-04-20 04:00] VITALS: BP 129/52
[2019-04-20 06:06] LABS: BASOPHILS % (AUTO) 0.6 % (0.0-2.0); EOSINOPHILS % (AUTO) 3.6 % (0.0-3.0); HEMOGLOBIN 11.2 G/DL (12.0-16.0); LYMPHOCYTES % (AUTO) 24.1 % (20.0-45.0); MEAN CORPUSCULAR VOLUME 74 FL (80-99); MONOCYTES % (AUTO) 10.4 % (1.0-10.0); NEUTROPHILS % (AUTO) 61.4 % (45.0-75.0); PLATELET COUNT 212 K/UL (150-450); RED BLOOD COUNT 5.01 M/UL (4.20-5.40); RED CELL DISTRIBUTION WIDTH 12.3 % (11.6-14.8); WHITE BLOOD COUNT 6.9 K/UL (4.8-10.8)
[2019-04-20] MEDS: NovoLOG Insulin Flexpen SUBQ SCH ×4 (06:21→21:49)
[2019-04-20 06:58] LABS: ALANINE AMINOTRANSFERASE 37 U/L (12-78); ALBUMIN 2.7 G/DL (3.4-5.0); ALBUMIN/GLOBULIN RATIO 0.6 (1.0-2.7); ALKALINE PHOSPHATASE 102 U/L (46-116); ANION GAP 7 mmol/L (5-15); ASPARTATE AMINO TRANSFERASE 22 U/L (15-37); BILIRUBIN,TOTAL 0.3 MG/DL (0.2-1.0); BLOOD UREA NITROGEN 38 mg/dL (7-18); CARBON DIOXIDE 26 MMOL/L (21-32); CHLORIDE 103 MMOL/L (98-107); CREATININE 1.8 MG/DL (0.55-1.30); POTASSIUM 4.8 MMOL/L (3.5-5.1); SODIUM 136 MMOL/L (136-145)
[2019-04-20 07:03] LABS: % IRON SATURATION 18 % (15-50); IRON 34 ug/dL (50-175); TOTAL IRON BINDING CAPACITY 189 ug/dL (250-450)
--- NOTE | 2019-04-20 07:53 | NUR ---
HAND-OFF: Report given to ANAHY Carter. Pt stable.
--- NOTE | 2019-04-20 08:00 | NUR ---
NURSE NOTES: Received report from Mariella HIGGINBOTHAM. Pt is awake and very talkative. Pt on it instructor no signs of cardiac or respiratory distress. Pt stress test was cancelled. Pt legally blind. Bed locked and in lowest position. Call light within reach. Will continue to monitor.
[2019-04-20 08:52] VITALS: BP 137/64
[2019-04-20] MEDS: Imdur 30mg tab ORAL SCH (09:00)
[2019-04-20] MEDS: Aspirin EC 81mg tab ORAL SCH (09:01)
[2019-04-20] MEDS: Carvedilol 12.5mg tab ORAL SCH ×2 (09:01→17:45)
[2019-04-20] MEDS: guaiFENesin w/Codeine 5ml Liq ud ORAL PRN ×2 (09:01→18:58)
[2019-04-20] MEDS: Heparin 5000 units/ml inj SUBQ SCH ×2 (09:04→21:49)
[2019-04-20] MEDS: Levemir Flexpen SUBQ SCH (09:05)
[2019-04-20] MEDS: Cosopt Opth Soln 10 mL Btl BOTH EYES SCH ×2 (09:06→17:46)
--- NOTE | 2019-04-20 10:44 | Diagnostic Imaging Report ---
Indication: Chest pain Technique: Continuous helical transaxial imaging of the chest was obtained from the thoracic inlet to the upper abdomen. No intravenous contrast was administered. Coronal 2-D reformats were also obtained. Total Dose length Product (DLP): 935.[address] Dose Index Volume (CTDIvol): 29.71 mGy Comparison: none Findings: There are multiple small nodules present within the lungs bilaterally. Some of the nodules are calcified and clearly due to granulomatous disease while others are more nonspecific. The largest noncalcified nodule is about 7 mm in the superior segment of the right lower lobe. These are likely noncalcified granulomata. Suggest follow-up in 6 months. There is mild peripheral reticular densities with small paraseptal blebs bilaterally especially in the lower lobes. Some patchy groundglass opacities are present as well as mild bronchiectasis. Findings are likely chronic and due to scarring. Few postinflammatory pneumatoceles are present for example in the right upper lobe measuring 2 cm. The heart is enlarged. A pacemaker is present. The aorta is mildly calcified. There are small nodes in the mediastinum nonspecific in nature. There are small nodes probably present within the tho but this is not evaluated well on noncontrast imaging. Small hiatal hernia is present. Small epicardial nodes are present also nonspecific. The visualized part of the upper abdomen is unremarkable. IMPRESSION: Both calcified and noncalcified nodules present within the lungs bilaterally likely on the basis of old granulomatous disease. Note is made of a 7 mm noncalcified nodule in the right lower lobe. Follow-up CT chest is recommended at 6 months per Fleischner Society criteria. Scarring involving the lungs primarily in the central and basilar aspects of both lungs as described above. Pacemaker Atherosclerotic disease. Hiatal hernia The CT scanner at [facility] is accredited by the [employer] and the scans are performed using dose optimization techniques as appropriate to a performed exam including Automatic Exposure control.
--- NOTE | 2019-04-20 10:45 | General Progress Note ---
Assessment/Plan Assessment/Plan: CP - Per Card D. Retinopathy + Glaucoma -seen by Dr. Estrada - see orders. AODM see orders If venous Duplex negative - DC home. Subjective Allergies: Coded Allergies: AZITHROMYCIN (Verified Allergy, Intermediate, ITCHINESS, 10/15/13) QUESTIONABLE ALLERGIC RXN BUT PT STARTED ITCHING AFTER BEING GIVEN A DOSE BUT PT NOT SURE Subjective No CP. Having Venous Duplex. Objective Last 24 Hour Vital Signs Date Time Temp Pulse Resp B/P (MAP) Pulse Ox O2 Delivery O2 Flow Rate FiO2 04/20/19 09:01 64 137/64 04/20/19 09:00 137/64 04/20/19 09:00 137/64 04/20/19 08:52 97.7 60 24 137/64 (88) 100 04/20/19 08:34 77 18 100 Nasal Cannula 2.0 28 04/20/19 08:24 79 18 98 Nasal Cannula 2.0 28 04/20/19 08:24 21 04/20/19 04:00 63 04/20/19 04:00 98.1 61 20 129/52 (77) 98 04/20/19 03:21 63 18 100 Nasal Cannula 2.0 28 04/20/19 03:11 76 18 98 Nasal Cannula 2.0 28 04/20/19 01:44 Nasal Cannula 2.0 28 04/20/19 01:44 Nasal Cannula 2.0 28 04/20/19 00:00 98.4 63 18 131/54 (79) 100 04/20/19 00:00 61 04/19/19 21:00 Room Air 04/19/19 20:34 79 18 96 Nasal Cannula 2.0 28 04/19/19 20:23 76 18 94 Nasal Cannula 2.0 28 04/19/19 20:23 76 18 94 Nasal Cannula 2.0 28 04/19/19 20:00 97.7 60 18 101/47 (65) 97 04/19/19 20:00 60 04/19/19 17:50 97.4 66 20 120/56 (77) 98 04/19/19 17:15 61 115/47 04/19/19 15:39 61 04/19/19 12:00 97.4 66 20 115/47 (69) 98 04/19/19 11:54 66 Intake and Output 04/19/19 04/20/19 19:00 07:00 Intake Total 700 ml Output Total 600 ml 500 ml Balance 100 ml -500 ml Intake Oral 700 ml Output Urine Total 600 ml 500 ml Laboratory Tests 04/20/19 05:35: White Blood Count 6.9, Red Blood Count 5.01, Hemoglobin 11.2L, Hematocrit 37.0, Mean Corpuscular Volume 74L, Mean Corpuscular Hemoglobin 22.3L, Mean Corpuscular Hemoglobin Concent 30.2L, Red Cell Distribution Width 12.3, Platelet Count 212, Mean Platelet Volume 6.3L, Neutrophils (%) (Auto) 61.4, Lymphocytes (%) (Auto) 24.1, Monocytes (%) (Auto) 10.4H, Eosinophils (%) (Auto) 3.6H, Basophils (%) (Auto) 0.6, Sodium Level 136, Potassium Level 4.8, Chloride Level 103, Carbon Dioxide Level 26, Anion Gap 7, Blood Urea Nitrogen 38H, Creatinine 1.8H, Estimat Glomerular Filtration Rate , Glucose Level 199H, Calcium Level 10.0, Iron Level 34L, Total Iron Binding Capacity 189L, Percent Iron Saturation 18, Unsaturated Iron Binding 155, Total Bilirubin 0.3, Aspartate Amino Transf (AST/SGOT) 22, Alanine Aminotransferase (ALT/SGPT) 37, Alkaline Phosphatase 102, Total Protein 6.9, Albumin 2.7L, Globulin 4.2, Albumin /Globulin Ratio 0.6L Height (Feet): 5 Height (Inches): 5.00 Weight (Pounds): 271 Objective Blind. Lt eye chemosis. CV RR Lungs CTA Abd SNT. BS + E No CCE Abbey Lozano MD Apr 20, 2019 10:45
[2019-04-20 12:00] VITALS: BP 104/43
--- NOTE | 2019-04-20 13:22 | NUR ---
paged Dr. Razo to communicate that pt. chest fills congested and pt is having none stop cough. Pt complaining of back pain "might be the lungs Pt is wheezing. Currently getting a breathing treatment.
--- NOTE | 2019-04-20 14:20 | NUR ---
RD ASSESSMENT & RECOMMENDATIONS SEE CARE ACTIVITY FOR COMPLETE ASSESSMENT DAILY ESTIMATED NEEDS: Needs based on DM obesity/ ABW 73kg 20-25kcal/kg kcals/kg 7575-0966 total kcals 1-1.5 g protein/kg 73-110 g total protein 20-25 mL/kg 8145-4118 total fluid mLs NUTRITION DIAGNOSIS: 1. Altered nutrition related lab values r/t diabetes dx as evidenced by elev BG's (199-304), elev POC Glu(190-265), a1C 10.2. 2. Obesity R/T excessive energy intake, life style factors? as evidenced by BMI> 45. (CURRENT DIET: CCHO MED/ LOW NA) PO DIET RECOMMENDATIONS-> rec DIET CHANGE to-> CCHO LOW + CARDIAC ADDITIONAL RECOMMENDATIONS: * Obtain a calibrated bed scale wt as able * Add B-complex daily for max gluc metabolism * Diet edu provided (04/20) * Diet change to CCHO LOW for improved glycemic control
--- NOTE | 2019-04-20 15:14 | NUR ---
NURSE NOTES: Report received from Emma/RN, Patient is awake and alert. IV on left hand 20 Osei saline locked. Bed in low position and locked, Call light within reach. Will continue plan of care.
[2019-04-20 16:00] VITALS: BP 140/61
[2019-04-20] MEDS ORDERED: VITAMIN D250000 UNI1 ORAL (18:54)
--- NOTE | 2019-04-20 19:30 | NUR ---
NURSE NOTES: Report received from Michaelle Lima RN. Pt is resting in bed in stable condition. Pt is AOx4, on 2L O2 via nasal cannula. Pt is receiving scheduled breathing treatment at this time and has been administered PRN Robitussin for persistent cough. Pt is slightly short of breath, tachypnic to 22 breaths/min, expiratory wheezing and pursed lip breathing noted from patient. Will reassess s/p breathing treatment. O2 saturation is WNL. IV site is L AC #20g and is asymptomatic, patent, and intact. Fall precautions noted to be in place. Call light and side table placed within reach and pt oriented to surroundings. Will continue to monitor.
--- NOTE | 2019-04-20 19:43 | NUR ---
HAND-OFF: Report given to Liz/RN, Patient awake and alert, No sign of distress, Patient receiving breathing treatment at this time, Family at bedside. Endorsed plan of care.
[2019-04-20 20:00] VITALS: BP 126/56
--- NOTE | 2019-04-20 20:30 | NUR ---
NURSE NOTES: Breathing reassessed after breathing treatment. Pt states shortness of breath has improved. Pt is breathing at normal rate and rhythm at this time and remains on 2L O2 via nasal cannula. Expiratory wheezing noted in middle and upper lobes. Will continue to monitor.
[2019-04-20] MEDS: Latanoprost 0.005% Opth 2.5ml Soln BOTH EYES SCH (21:47)
[2019-04-21] VITALS: BP 125/54
[2019-04-21] MEDS: Albuterol/Ipratropium 3ml neb HHN SCH ×4 (01:44→19:26)
[2019-04-21 04:00] VITALS: BP 151/58
--- NOTE | 2019-04-21 04:45 | Progress Note ---
DATE: 04/20/2019 CARDIOLOGY PROGRESS NOTE SUBJECTIVE: The patient still has some cough and associated pain. Monitored rhythm sinus. OBJECTIVE: VITAL SIGNS: Blood pressure 137/64, pulse 64, respiratory rate 24. LUNGS: With coarse breath sounds. No wheezing. HEART: Regular rhythm and rate. Normal S1, S2. ABDOMEN: Soft. EXTREMITIES: No edema. IMAGING: CAT scan revealed multiple nodules, mostly calcified, one noncalcified that should be followed serially. Venous duplex scan is pending. LABORATORY DATA: White count 6.9, hemoglobin 11.2. Potassium 4.8, BUN 38, creatinine 1.8, albumin 2.7. IMPRESSION: 1. Hypertensive heart disease. 2. Granulomatous lung disease. 3. Pleuritic chest pain. 4. Insulin-requiring diabetes mellitus. 5. Permanent pacemaker with Alverto type. PLAN: 1. Await venous duplex scan. 2. Continue current cardiovascular regimen. 3. Antitussives. 4. Outpatient pacemaker interrogation. Darci Jose M.D. DR: Vern JOB#: [id number] CC:
[2019-04-21] MEDS: NovoLOG Insulin Flexpen SUBQ SCH ×4 (05:53→21:38)
[2019-04-21] MEDS: guaiFENesin w/Codeine 5ml Liq ud ORAL PRN ×2 (06:07→21:44)
--- NOTE | 2019-04-21 07:31 | NUR ---
HAND-OFF: Report given to Damon Mohan RN. Pt is resting in bed in stable condition. No acute distress noted. Endorsed plan of care.
--- NOTE | 2019-04-21 07:40 | NUR ---
NURSE NOTES: Received report from Liz HIGGINBOTHAM, Patient is awake and resting comfortably in bed. IV is intact, patent and SL. Bed in low position, brakes engaged for safety. Call light is within reach. Will continue with the plan of care.
[2019-04-21 08:00] VITALS: BP 127/69
[2019-04-21] MEDS: Carvedilol 12.5mg tab ORAL SCH ×2 (09:27→17:52)
[2019-04-21] MEDS: Aspirin EC 81mg tab ORAL SCH (09:27)
[2019-04-21] MEDS: Cosopt Opth Soln 10 mL Btl BOTH EYES SCH ×2 (09:28→17:52)
[2019-04-21] MEDS: Imdur 30mg tab ORAL SCH (09:28)
[2019-04-21] MEDS: Heparin 5000 units/ml inj SUBQ SCH ×2 (09:29→21:39)
[2019-04-21] MEDS: Levemir Flexpen SUBQ SCH (09:30)
[2019-04-21 12:00] VITALS: BP 128/62
--- NOTE | 2019-04-21 12:14 | General Progress Note ---
Assessment/Plan Assessment/Plan: CP - Per Card D. Retinopathy + Glaucoma -seen by Dr. Estrada - see orders. AODM see orders If venous Duplex negative - DC home. Venous Duplex results delayed. Subjective Allergies: Coded Allergies: AZITHROMYCIN (Verified Allergy, Intermediate, ITCHINESS, 10/15/13) QUESTIONABLE ALLERGIC RXN BUT PT STARTED ITCHING AFTER BEING GIVEN A DOSE BUT PT NOT SURE Subjective No CP. Having Venous Duplex. Objective Last 24 Hour Vital Signs Date Time Temp Pulse Resp B/P (MAP) Pulse Ox O2 Delivery O2 Flow Rate FiO2 04/21/19 09:28 127/69 04/21/19 09:27 61 127/69 04/21/19 09:26 127/69 04/21/19 09:00 Nasal Cannula 2.0 04/21/19 08:00 97.6 60 20 127/69 (88) 98 04/21/19 08:00 60 04/21/19 07:13 98 Nasal Cannula 2.0 28 04/21/19 07:13 Nasal Cannula 04/21/19 07:13 66 18 96 Nasal Cannula 2.0 28 04/21/19 04:00 98.1 60 20 151/58 (89) 100 04/21/19 04:00 60 04/21/19 01:54 62 18 99 Nasal Cannula 2.0 28 04/21/19 01:44 60 18 96 Nasal Cannula 2.0 28 04/21/19 00:00 98.0 60 21 125/54 (77) 96 04/21/19 00:00 60 04/20/19 21:00 Nasal Cannula 2.0 04/20/19 20:00 98.2 60 22 126/56 (79) 100 04/20/19 20:00 60 04/20/19 19:48 76 18 99 Nasal Cannula 2.0 28 04/20/19 19:38 78 18 98 Nasal Cannula 2.0 28 04/20/19 19:38 98 Nasal Cannula 2.0 28 04/20/19 17:45 60 140/61 04/20/19 16:00 60 04/20/19 16:00 97.5 60 23 140/61 (87) 98 04/20/19 13:18 72 18 100 Nasal Cannula 2.0 28 04/20/19 13:07 81 18 98 Nasal Cannula 2.0 28 04/20/19 13:07 21 Intake and Output 04/20/19 04/21/19 19:00 07:00 Output Total 400 ml 600 ml Balance -400 ml -600 ml Output Urine Total 400 ml 600 ml Height (Feet): 5 Height (Inches): 5.00 Weight (Pounds): 271 Objective Blind. Lt eye chemosis. CV RR Lungs CTA Abd SNT. BS + E No CCE Abbey Lozano MD Apr 21, 2019 12:14
[2019-04-21 16:00] VITALS: BP 121/66
--- NOTE | 2019-04-21 19:10 | NUR ---
HAND-OFF: Report given to ANAHY Hill.Patient is in stable condition.
[2019-04-21 20:00] VITALS: BP 128/57
--- NOTE | 2019-04-21 20:50 | NUR ---
NURSE NOTES: Report received from Wisam May RN via telephone. Pending room cleaning/negative pressure to be set up. Will update ER when bed is ready. Addendum: 04/22/19 at 0229 by JOHANA MA RN WRONG PATIENT, PLEASE DISREGARD
[2019-04-21] MEDS: Latanoprost 0.005% Opth 2.5ml Soln BOTH EYES SCH (21:36)
[2019-04-22] VITALS: BP 122/59
[2019-04-22] MEDS: Albuterol/Ipratropium 3ml neb HHN SCH ×5 (01:00→19:21)
[2019-04-22 04:00] VITALS: BP 142/61
[2019-04-22] MEDS: guaiFENesin w/Codeine 5ml Liq ud ORAL PRN (04:02)
[2019-04-22] MEDS: NovoLOG Insulin Flexpen SUBQ SCH ×3 (06:34→17:19)
--- NOTE | 2019-04-22 07:33 | NUR ---
HAND-OFF: Report given to James Lopez RN. Pt is resting in bed in stable condition. No acute distress noted. Endorsed plan of care.
--- NOTE | 2019-04-22 07:35 | NUR ---
NURSE NOTES: Received report from ANAHY Hill. No signs of distress noted. A+Ox4, denies pain/SOB. IV site is patent and intact. Respirations are even and unlabored on room air. Boles in place, patent, and draining to gravity at foot of bed. Bed is at lowest position, brakes engaged, siderails x2, bed alarm on, and call light within reach. Pt is in stable condition at this time; will continue to monitor.
[2019-04-22 08:00] VITALS: BP 103/59
--- NOTE | 2019-04-22 08:09 | NUR ---
NURSE NOTES: D/Dre bhakta. Left message with Dr. Jose regarding clearance for discharge; awaiting response.
[2019-04-22] MEDS: Imdur 30mg tab ORAL SCH (09:00)
[2019-04-22] MEDS: Carvedilol 12.5mg tab ORAL SCH ×2 (09:00→17:20)
[2019-04-22] MEDS: Cosopt Opth Soln 10 mL Btl BOTH EYES SCH ×2 (09:59→17:18)
[2019-04-22] MEDS: Aspirin EC 81mg tab ORAL SCH (10:01)
[2019-04-22] MEDS: Heparin 5000 units/ml inj SUBQ SCH (10:02)
[2019-04-22] MEDS: Levemir Flexpen SUBQ SCH (10:03)
--- NOTE | 2019-04-22 11:00 | NUR ---
NURSE NOTES: Pt saturated pad with urine post d/c of bhakta.
[2019-04-22 12:00] VITALS: BP 131/53
--- NOTE | 2019-04-22 14:01 | General Progress Note ---
Assessment/Plan Assessment/Plan: CP - Per Card D. Retinopathy + Glaucoma -seen by Dr. Estrada - see orders. AODM see orders If venous Duplex negative - DC home. Venous Duplex results reported negative. DC home. Subjective Allergies: Coded Allergies: AZITHROMYCIN (Verified Allergy, Intermediate, ITCHINESS, 10/15/13) QUESTIONABLE ALLERGIC RXN BUT PT STARTED ITCHING AFTER BEING GIVEN A DOSE BUT PT NOT SURE Subjective No CP. Having Venous Duplex. Objective Last 24 Hour Vital Signs Date Time Temp Pulse Resp B/P (MAP) Pulse Ox O2 Delivery O2 Flow Rate FiO2 04/22/19 13:08 68 20 98 Room Air 2.0 28 04/22/19 12:58 68 20 94 Nasal Cannula 2.0 28 04/22/19 09:00 Nasal Cannula 2.0 04/22/19 09:00 103/59 04/22/19 09:00 60 103/59 04/22/19 09:00 103/59 04/22/19 08:00 98.4 60 20 103/59 (74) 100 04/22/19 07:43 60 04/22/19 07:01 62 17 98 Room Air 2.0 28 04/22/19 06:51 96 Nasal Cannula 2.0 28 04/22/19 06:51 60 17 96 Nasal Cannula 2.0 28 04/22/19 04:13 89 18 95 Nasal Cannula 2.0 28 04/22/19 04:00 60 04/22/19 04:00 98.2 63 18 142/61 (88) 100 04/22/19 01:27 Room Air 04/22/19 01:27 28 04/22/19 01:27 93 18 93 Nasal Cannula 2.0 28 04/22/19 00:00 98.2 60 19 122/59 (80) 99 04/22/19 00:00 60 04/21/19 21:00 Nasal Cannula 2.0 04/21/19 20:00 98.2 61 18 128/57 (80) 100 04/21/19 20:00 60 04/21/19 19:53 80 18 94 Nasal Cannula 2.0 28 04/21/19 19:28 92 Nasal Cannula 2.0 28 04/21/19 19:26 76 18 92 Nasal Cannula 2.0 28 04/21/19 17:52 60 121/66 04/21/19 16:00 98.2 60 20 121/66 (84) 97 04/21/19 16:00 60 04/21/19 14:05 76 18 99 Nasal Cannula 2.0 28 Intake and Output 04/21/19 04/22/19 19:00 07:00 Intake Total 400 ml Output Total 500 ml 420 ml Balance -100 ml -420 ml Intake Oral 400 ml Output Urine Total 500 ml 420 ml Height (Feet): 5 Height (Inches): 5.00 Weight (Pounds): 273 Objective Blind. Lt eye chemosis. CV RR Lungs CTA Abd SNT. BS + E No CCE Abbey Lozano MD Apr 22, 2019 14:01
--- NOTE | 2019-04-22 14:17 | General Progress Note ---
Assessment/Plan Assessment/Plan: CP - Per Card D. Retinopathy + Glaucoma -seen by Dr. Estrada - see orders. AODM see orders If venous Duplex negative - DC home. Venous Duplex results reported negative. Refusing to go home. DC to SNF! Subjective Allergies: Coded Allergies: AZITHROMYCIN (Verified Allergy, Intermediate, ITCHINESS, 10/15/13) QUESTIONABLE ALLERGIC RXN BUT PT STARTED ITCHING AFTER BEING GIVEN A DOSE BUT PT NOT SURE Subjective No CP. Having Venous Duplex. Objective Last 24 Hour Vital Signs Date Time Temp Pulse Resp B/P (MAP) Pulse Ox O2 Delivery O2 Flow Rate FiO2 04/22/19 13:08 68 20 98 Room Air 2.0 28 04/22/19 12:58 68 20 94 Nasal Cannula 2.0 28 04/22/19 09:00 Nasal Cannula 2.0 04/22/19 09:00 103/59 04/22/19 09:00 60 103/59 04/22/19 09:00 103/59 04/22/19 08:00 98.4 60 20 103/59 (74) 100 04/22/19 07:43 60 04/22/19 07:01 62 17 98 Room Air 2.0 28 04/22/19 06:51 96 Nasal Cannula 2.0 28 04/22/19 06:51 60 17 96 Nasal Cannula 2.0 28 04/22/19 04:13 89 18 95 Nasal Cannula 2.0 28 04/22/19 04:00 60 04/22/19 04:00 98.2 63 18 142/61 (88) 100 04/22/19 01:27 Room Air 04/22/19 01:27 28 04/22/19 01:27 93 18 93 Nasal Cannula 2.0 28 04/22/19 00:00 98.2 60 19 122/59 (80) 99 04/22/19 00:00 60 04/21/19 21:00 Nasal Cannula 2.0 04/21/19 20:00 98.2 61 18 128/57 (80) 100 04/21/19 20:00 60 04/21/19 19:53 80 18 94 Nasal Cannula 2.0 28 04/21/19 19:28 92 Nasal Cannula 2.0 28 04/21/19 19:26 76 18 92 Nasal Cannula 2.0 28 04/21/19 17:52 60 121/66 04/21/19 16:00 98.2 60 20 121/66 (84) 97 04/21/19 16:00 60 Intake and Output 04/21/19 04/22/19 19:00 07:00 Intake Total 400 ml Output Total 500 ml 420 ml Balance -100 ml -420 ml Intake Oral 400 ml Output Urine Total 500 ml 420 ml Height (Feet): 5 Height (Inches): 5.00 Weight (Pounds): 273 Objective Blind. Lt eye chemosis. CV RR Lungs CTA Abd SNT. BS + E No CCE Abbey Lozano MD Apr 22, 2019 14:17
--- NOTE | 2019-04-22 15:00 | NUR ---
NURSE NOTES: Dr. Sun aware of elevated B/P; no new orders.
--- NOTE | 2019-04-22 15:50 | NUR ---
CASE MANAGEMENT:REVIEW 04/22/19 SI: PLEURITIC CHEST PAIN 98.1 60 18 131/53 94% ON 2L/NC NO LABS IS: DUONEB HHN Q6HRS RTC LEVEMIR SQ QD IMDUR PO QD AVAPRO PO QD ASA PO QD COREG PO BID HEPARIN SQ Q12 : TELEMETRY STATUS DCP: FROM HOME BUT REFERRED TO [facility]
--- NOTE | 2019-04-22 15:53 | NUR ---
DISCHARGE PLAN FAXED CLINICALS TO [facility] T: [phone] F: [phone]
[2019-04-22 16:00] VITALS: BP 129/53
--- NOTE | 2019-04-22 16:45 | NUR ---
DISCHARGE PLANNED PATIENT WILL DISCHARGE TO [facility] ROOM 8A SKILLED T: [phone] FOR NURSE TO NURSE REPORT [facility] HAS BEEN ARRANGED FOR [employer]
[2019-04-22 17:20] VITALS: BP 146/66
--- NOTE | 2019-04-22 18:33 | NUR ---
NURSE NOTES: [facility].
--- NOTE | 2019-04-22 19:41 | NUR ---
HAND-OFF: Report given to ANAHY Anderson. Pt is in stable condition; plan of care endorsed.
--- NOTE | 2019-04-22 21:00 | NUR ---
NURSE NOTES: patient was discharged safely from hospital to [facility]. all inpatient medications was returned to patient allon with belongings list verified with patient. IV site was removed, ID bands were removed, along with Tele box..patient was discharged successfully
--- NOTE | 2019-04-23 04:00 | Progress Note ---
DATE: 04/21/2019 CARDIOLOGY PROGRESS NOTE Late entry, 04/21/2019. SUBJECTIVE: Venous duplex scan is still pending. Discussed with Dr. Lozano. The patient's vitals are stable. Her chest pain is felt to be nonischemic. OBJECTIVE: VITAL SIGNS: Blood pressure 127/69, pulse 61, and respirations 20. LUNGS: Clear. CHEST WALL: Slightly tender. CARDIAC: Regular rhythm and rate. Normal S1, S2 with a fourth heart sound. No rub. EXTREMITIES: With trace edema. IMPRESSION: 1. Musculoskeletal and pleuritic chest pain, no signs of acute ischemia. 2. Immobility. 3. Venous stasis. 4. Hypertensive heart disease. PLAN: 1. Await venous duplex study. 2. Maintain current cardiovascular regimen. 3. Discharge planning. Darci Jose M.D. DR: ARIAN JOB#: [id number] CC:
--- NOTE | 2019-04-23 04:15 | Progress Note ---
DATE: 04/22/2019 CARDIOLOGY PROGRESS NOTE SUBJECTIVE: The patient has no distress. No chest pain noted. Venous duplex was negative for DVT. Monitored rhythm, sinus. OBJECTIVE: VITAL SIGNS: Blood pressure 103/59, pulse 60, respiratory rate 20. LUNGS: Clear. Chest wall without tenderness. CARDIAC: Regular rhythm and rate. Normal S1 and S2 with a fourth heart sound. ABDOMEN: Soft. EXTREMITIES: No edema. IMPRESSION: 1. Noncardiac chest pain, likely musculoskeletal. 2. Hypertensive heart disease. 3. Chronic diastolic congestive heart failure. 4. Type 2 diabetes mellitus. 5. Glaucoma and retinopathy with blindness. PLAN: 1. Rehabilitation at correction facility. 2. DVT prophylaxis. 3. Discharge medication regimen reviewed and reconciled. 4. Therapy to be continued as is. Darci Jose M.D. DR: KWAKU JOB#: [id number] CC:
--- NOTE | 2019-04-24 21:30 | Discharge Summary ---
Discharge Summary Discharge Summary _ DATE OF ADMISSION: 04/17/2019 DATE OF DISCHARGE: 04/22/2019 DISCHARGED BY: Dr. Lozano REASON FOR ADMISSION: 83 years old female with past medical history of permanent pacemaker, coronary artery disease, diastolic congestive heart failure due to hypertension, COPD, type 2 diabetes mellitus, gastroesophageal reflux disease, essential tremor, glaucoma, bilateral cataracts, osteoarthritis, presented to emergency room complaining of chest pain along with accompanying shortness of breath. She took nitroglycerin with some improvement in pain, however pain recurred. Upon arrival to the emergency room however, chest pain resolved. Patient reported shortness of breath for several days and leg swelling. She is at home on oxygen, but was unable to get to it and put it on , due to weakness and leg swelling . Patient reported compliance with her medication. Laboratory work-up revealed troponin 0.01. BUN 28 , creatinine 1.3. No leukocytosis. Stable hemoglobin. Albumin 2.7. Chest x-ray revealed left-sided pacemaker and evidence , suggesting congestive heart failure. EKG revealed sinus rhythm with sinus arrhythmia. Vital signs initially revealed hypotension 72/52 , but blood pressure improved after fluid bolus. Patient subsequently admitted to telemetry floor for further management. CONSULTANTS: online program coordinator Dr. Jose [facility]SE: Patient admitted to telemetry floor. Serial troponin trended and remain negative. Per online program coordinator , patient had anginal episode that resolved. No signs of coronary insufficiency. Patient later complained of sharp chest pain associated with cough and shortness of breath. Chest x-ray and CT chest were done. Antitussive provided as needed. Venous duplex bilateral lower extremity revealed no evidence of acute DVT. DVT prophylaxis provided. Supplemental oxygen provided as needed to keep pulse oximetry above 92%. Pulmonary toilet provided as needed. CT of the chest demonstrated both calcified and noncalcified nodules within the lungs bilaterally, likely on the basis of old granulomatous disease. Note was made of a 7 mm noncalcified nodule in the right lower lobe. Follow- up CT chest was recommended in 6 months. Patient started on diuresis with close monitoring of volume and cardiorenal parameters. Topical nitrates provided. Anti-angina regimen titrated. Antiplatelet therapy continued. DVT prophylaxis provided. Repeated EKG demonstrated atrial paced ventricular sensed rhythm with electronic pacemaker. Follow-up chest x-ray revealed mild vascular congestion. Likely atelectasis versus scarring in the right minor fissure region. Blood pressure was managed with beta-tita and ARB. Patient was transitioned from topical to oral nitrate. Outpatient pacemaker interrogation will be arranged. Blood sugar was managed with long-acting insulin and sliding scale of short acting insulin as needed. Hemoglobin A1c -10.2, not at goal. Patient will need further optimization of anti-glycemic regimen as outpatient. Patient was counseled on diabetic diet. Registered dietitian recommendation implemented in plan of care. Pain management was addressed as needed. Pain resolved. According to online program coordinator, patient had non-cardiac chest pain, likely musculoskeletal and pleuritic. No signs of acute ischemia. Patient stabilized, but refused to go home. SNF placement was arranged . Patient was stable for transfer to care home facility for continuation of care. FINAL DIAGNOSES: Noncardiac chest pain, likely pleuritic and musculoskeletal Chronic diastolic congestive heart failure Diabetes mellitus type 2 poorly controlled ( [id number]) Diabetic nephropathy Diabetic retinopathy with blindness Hypotensive episode -resolved Hypertensive heart disease Permanent pacemaker Granulomatous lung disease Permanent pacemaker with Alverto type COPD Moderate protein calorie malnutrition Noncompliance DISCHARGE MEDICATIONS: See Medication Reconciliation list. DISCHARGE INSTRUCTIONS: Patient was discharged to the care home facility. Follow up with medical doctor at the facility. I have been assigned to dictate discharge summary for this account. I was not involved in the patient's management. Brigida Richards NP Apr 24, 2019 21:30
== END 2019-04-22 20:30 | DRG 204 ==
LOC: EMR 10:35 → ICU 10:56 → EDBEDREQ 16:37 → 2W 17:53 → 2E 04-19 09:50
DX: R07.81 Pleurodynia (principal); I13.0 Hypertensive heart and chronic kidney disease with heart failure and stage 1 through stage 4 chronic kidney disease, or unspecified chronic kidney disease; N17.9 Acute kidney failure, unspecified; E44.0 Moderate protein-calorie malnutrition; Z68.42 Body mass index [BMI] 45.0-49.9, adult; I50.32 Chronic diastolic (congestive) heart failure; M79.18 Myalgia, other site; I25.119 Atherosclerotic heart disease of native coronary artery with unspecified angina pectoris; N18.9 Chronic kidney disease, unspecified; E66.01 Morbid (severe) obesity due to excess calories; E11.21 Type 2 diabetes mellitus with diabetic nephropathy; E11.319 Type 2 diabetes mellitus with unspecified diabetic retinopathy without macular edema; Z95.0 Presence of cardiac pacemaker; E11.40 Type 2 diabetes mellitus with diabetic neuropathy, unspecified; H54.8 Legal blindness, as defined in USA; J44.9 Chronic obstructive pulmonary disease, unspecified; Z91.19 Patient's noncompliance with other medical treatment and regimen; K21.9 Gastro-esophageal reflux disease without esophagitis; H40.9 Unspecified glaucoma; R25.1 Tremor, unspecified; I95.9 Hypotension, unspecified; E11.65 Type 2 diabetes mellitus with hyperglycemia; J98.4 Other disorders of lung; Z79.4 Long term (current) use of insulin; Z79.82 Long term (current) use of aspirin
CPT/HCPCS: 36415; 71045; 71250; 80053; 80061; 82550; 82553; 82962; 83036; 83540; 83550; 83880; 84443; 84484; 85025; 93005; 93970; 94640; 94664; 96374; 99285; J1815; J7620; S5561

== ENCOUNTER 2019-11-17 11:54 | Observation (INO) | payer MEDICARE, MEDICAID ==
[~2019-11-17] VITALS: Ht 162.6 cm; Wt 125.2 kg
[~2019-11-17 11:54] MED LIST changes: +VITAMIN D250000 UNI1 ORAL
[2019-11-17] MEDS ORDERED: Morphine Sulfate 4mg/ml Inj (IV USE ONLY) IVP ONE (12:45)
[2019-11-17] MEDS ORDERED: Phenazopyridine 200mg tab ORAL ONE ×2 (12:45→15:31)
[2019-11-17 13:14] LABS: EOSINOPHILS % (AUTO) 2.4 % (0.0-3.0); HEMATOCRIT 44.2 % (37.0-47.0); HEMOGLOBIN 13.2 G/DL (12.0-16.0); LYMPHOCYTES % (AUTO) 22.2 % (20.0-45.0); MEAN CORPUSCULAR VOLUME 77 FL (80-99); MONOCYTES % (AUTO) 6.4 % (1.0-10.0); PLATELET COUNT 185 K/UL (150-450); RED BLOOD COUNT 5.72 M/UL (4.20-5.40); RED CELL DISTRIBUTION WIDTH 11.9 % (11.6-14.8); WHITE BLOOD COUNT 5.5 K/UL (4.8-10.8)
[2019-11-17 13:16] VITALS: BP 181/83
--- NOTE | 2019-11-17 13:16 | NUR ---
came to er complaints of total body pain x 3 days denies any fever chills iv statrted venous blood drawn
[2019-11-17 13:28] LABS: ANION GAP 8 mmol/L (5-15); BLOOD UREA NITROGEN 25 mg/dL (7-18); CALCIUM 9.7 MG/DL (8.5-10.1); CARBON DIOXIDE 23 MMOL/L (21-32); CHLORIDE 102 MMOL/L (98-107); CREATININE 1.2 MG/DL (0.55-1.30); POTASSIUM 5.4 MMOL/L (3.5-5.1); SODIUM 133 MMOL/L (136-145)
--- NOTE | 2019-11-17 13:30 | Emergency Room Report ---
History of Present Illness General Chief Complaint: Back Pain-No Injury Source: Patient Present Illness HPI The patient presents with worsening body pain over the last 2 weeks. She has frequency and incontinence which is something new. Also she has bladder pain. In addition she has pain in her back. She is having chills also. She vomited yesterday. She feels her appetite is been poor. She has had to change her diapers multiple times through the night. She has no control over urination. She complains of left ankle pain. She has a history of gout and believes this is due to gout. She denies fevers or chills. There is no nausea at this time. Denies diarrhea. Some constipation. The patient is blind. She has a director patient financial services that is with her all the time. No headache. No rashes. No chest pain per se. No productive cough. Allergies: Coded Allergies: AZITHROMYCIN (Verified Allergy, Intermediate, ITCHINESS, 10/15/13) QUESTIONABLE ALLERGIC RXN BUT PT STARTED ITCHING AFTER BEING GIVEN A DOSE BUT PT NOT SURE Patient History Past Medical History: see triage record Social History: Denies: smoking, alcohol use, drug use Social History Narrative Has director patient financial services at home Reviewed Nursing Documentation: PMH: Agreed; PSxH: Agreed Nursing Documentation-PMH Past Medical History: No History, Except For Hx Hypertension: Yes Hx Pacemaker: Yes Hx Asthma: Yes Hx COPD: Yes Hx Diabetes: Yes Hx Cancer: No Hx Gastrointestinal Problems: Yes Hx Neurological Problems: No Hx Tremors: Yes Hx Vertigo: Yes Hx Dizziness: Yes Hx Syncope: Yes Hx Headaches: Yes Hx Weakness: Yes Hx Fatigue: Yes Review of Systems All Other Systems: negative except mentioned in HPI Physical Exam Vital Signs Date Time Temp Pulse Resp B/P (MAP) Pulse Ox O2 Delivery O2 Flow Rate FiO2 11/17/19 12:24 97.9 61 20 181/83 (115) 95 Room Air Sp02 EP Interpretation: reviewed, normal General Appearance: no apparent distress, alert, non-toxic, Chronically Ill Head: normocephalic, atraumatic Eyes: bilateral eye EOMI, bilateral eye other ENT: moist mucus membranes Neck: full range of motion, supple Respiratory: lungs clear, normal breath sounds Cardiovascular #1: regular rate, rhythm Cardiovascular #2: 2+ radial (R) Gastrointestinal: normal inspection, normal bowel sounds, non tender, no mass, non-distended Genitourinary: no CVA tenderness Musculoskeletal: decreased range of motion, no calf tenderness - Left ankle, tender - Lumbar spine without point tenderness, left ankle also tender Neurologic: alert, oriented x3, sensory intact, motor weakness - Diffuse Psychiatric: mood/affect normal Skin: other - Venous disease, no erythema over left ankle Medical Decision Making Diagnostic Impression: Primary Impression: Dysuria Additional Impressions: Urinary incontinence Qualified Codes: R32 - Unspecified urinary incontinence Gout attack Qualified Codes: M10.9 - Gout, unspecified ER Course Patient presents with urinary incontinence and dysuria with back pain. Rental includes UTI, pyelonephritis, cystitis of other cause, dysuria, urinary retention amongst others. Evaluation with EKG, chest x-ray and labs. Patient treated with Zofran, morphine and Pyridium. Complex patient with multiple comorbidities. EKG without injury. Paced. Chest x-ray pacer with minor fissure on the right- hand side. White count normal. Glucose elevated. Uric acid elevated. Urinalysis clear. Patient still feeling dysuria and also ill and weak. Colchicine ordered. Patient admitted to observation with possible urology consultation. Discussed with Dr. Lozano. Agrees with observation. Laboratory Tests Test 11/17/19 13:05 11/17/19 13:12 11/17/19 13:45 White Blood Count 5.5 K/UL (4.8-10.8) Red Blood Count 5.72 M/UL (4.20-5.40) H Hemoglobin 13.2 G/DL (12.0-16.0) Hematocrit 44.2 % (37.0-47.0) Mean Corpuscular Volume 77 FL (80-99) L Mean Corpuscular Hemoglobin 23.1 PG (27.0-31.0) L Mean Corpuscular Hemoglobin Concent 29.9 G/DL (32.0-36.0) L Red Cell Distribution Width 11.9 % (11.6-14.8) Platelet Count 185 K/UL (150-450) Mean Platelet Volume 6.9 FL (6.5-10.1) Neutrophils (%) (Auto) 68.0 % (45.0-75.0) Lymphocytes (%) (Auto) 22.2 % (20.0-45.0) Monocytes (%) (Auto) 6.4 % (1.0-10.0) Eosinophils (%) (Auto) 2.4 % (0.0-3.0) Basophils (%) (Auto) 1.0 % (0.0-2.0) Prothrombin Time 10.7 SEC (9.30-11.50) Prothrombin Time INR 1.0 (0.9-1.1) PTT 23 SEC (23-33) Sodium Level 133 MMOL/L (136-145) L Potassium Level 5.4 MMOL/L (3.5-5.1) H Chloride Level 102 MMOL/L (98-107) Carbon Dioxide Level 23 MMOL/L (21-32) Anion Gap 8 mmol/L (5-15) Blood Urea Nitrogen 25 mg/dL (7-18) H Creatinine 1.2 MG/DL (0.55-1.30) Estimate Glomerular Filtration Rate mL/min (>60) Glucose Level 263 MG/DL (74-106) H Lactic Acid Level 1.60 mmol/L (0.4-2.0) Uric Acid 8.6 MG/DL (2.6-7.2) H Calcium Level 9.7 MG/DL (8.5-10.1) Total Bilirubin 0.4 MG/DL (0.2-1.0) Aspartate Amino Transferase (AST) 24 U/L (15-37) Alanine Aminotransferase (ALT) 24 U/L (12-78) Alkaline Phosphatase 112 U/L (46-116) Troponin I 0.000 ng/mL (0.000-0.056) Total Protein 8.0 G/DL (6.4-8.2) Albumin 3.2 G/DL (3.4-5.0) L Globulin 4.8 g/dL Albumin/Globulin Ratio 0.7 (1.0-2.7) L Lipase 122 U/L (73-393) Urine Color Yellow Urine Appearance Clear Urine pH 5 (4.5-8.0) Urine Specific [place] 1.020 (1.005-1.035) Urine Protein 2+ (NEGATIVE) H Urine Glucose (UA) 1+ (NEGATIVE) H Urine Ketones Negative (NEGATIVE) Urine Blood Negative (NEGATIVE) Urine Nitrite Negative (NEGATIVE) Urine Bilirubin Negative (NEGATIVE) Urine Urobilinogen Normal MG/DL (0.0-1.0) Urine Leukocyte Esterase 1+ (NEGATIVE) H Urine RBC 0-2 /HPF (0 - 2) Urine WBC 0-2 /HPF (0 - 2) Urine Squamous Epithelial Cells Few /LPF (NONE/OCC) Urine Bacteria Few /HPF (NONE) Erythrocyte Sedimentation Rate 27 MM/HR (0-30) EKG Diagnostic Results Rate: normal Rhythm: other - paced ST Segments: no acute changes Rhythm Strip Diag. Results Rhythm: no PVC's, no ectopy, other - paced Chest X-Ray Diagnostic Results Chest X-Ray Diagnostic Results : Chest X-Ray Ordered: Yes # of Views/Limited/Complete: 1 View Indication: Other EP Interpretation: Yes Interpretation: no pneumothorax, other - R minor fissure, pacer Impression: Other Electronically Signed by: Electronically signed by Darci Regan MD Last Vital Signs Date Time Temp Pulse Resp B/P (MAP) Pulse Ox O2 Delivery O2 Flow Rate FiO2 11/17/19 21:00 Nasal Cannula 2.0 11/17/19 20:27 65 18 97 28 11/17/19 20:00 97.9 154/55 (88) Status: improved Disposition: PLACE IN OBSERVATION Condition: Serious Referrals: Abbey Lozano MD (PCP) Darci Regan MD Nov 17, 2019 13:30
[2019-11-17 13:33] LABS: APPEARANCE,URINE CLEAR; BILIRUBIN, URINE NEGATIVE (NEGATIVE); GLUCOSE, URINE (UA) 1+ (NEGATIVE); KETONES,URINE NEGATIVE (NEGATIVE); LEUKOCYTE ESTERASE ,URINE 1+ (NEGATIVE); NITRITE,URINE NEGATIVE (NEGATIVE); PH,URINE 5 (4.5-8.0); PROTEIN,URINE 2+ (NEGATIVE); UROBILINOGEN,URINE NORMAL MG/DL (0.0-1.0)
[2019-11-17 13:33] LABS: ALANINE AMINOTRANSFERASE 24 U/L (12-78); ALBUMIN 3.2 G/DL (3.4-5.0); ALBUMIN/GLOBULIN RATIO 0.7 (1.0-2.7); ALKALINE PHOSPHATASE 112 U/L (46-116); ASPARTATE AMINO TRANSFERASE 24 U/L (15-37); BILIRUBIN,TOTAL 0.4 MG/DL (0.2-1.0)
[2019-11-17 13:37] LABS: COLOR,URINE YELLOW
[2019-11-17] MEDS ORDERED: Morphine Sulfate 4mg/ml Inj (IV USE ONLY) ONE (15:31)
[2019-11-17] MEDS ORDERED: DEXILANT30 MG ORAL (16:11)
[2019-11-17] MEDS ORDERED: SIMBRINZA 1%-0.28 ML OP (16:11)
[2019-11-17] MEDS ORDERED: DIOVAN160 MG ORAL (16:11)
[2019-11-17 16:14] VITALS: BP 160/50
--- NOTE | 2019-11-17 16:18 | NUR ---
report given to rn 4 [facility] patient is to be transferd via rney to [facility] in [place]
--- NOTE | 2019-11-17 18:06 | NUR ---
NURSE NOTES: Patient transferred from ER via gurney. Patient is alert and oriented. Patient oriented to room. No reports of discomfort at the moment. Bed is locked, in lowest position, and call light is within reach. Dr. Lozano paged for orders. Awaiting call back.
[2019-11-17 18:10] VITALS: BP 154/80
[2019-11-17] MEDS ORDERED: HYDROcodone/Acetamin 5/325 tab ORAL PRN (18:30)
[2019-11-17] MEDS ORDERED: Albuterol/Ipratropium 3ml neb HHN PRN ×2 (18:45→19:00)
[2019-11-17] MEDS ORDERED: Acetaminophen 500mg (ES) tab ORAL PRN (18:45)
--- NOTE | 2019-11-17 19:15 | NUR ---
NURSE NOTES: Paged Dr. Abbey Lozano twice for clarification on medications. Potassium=5.4, will hold potassium and endorse to car shifter.
--- NOTE | 2019-11-17 19:19 | NUR ---
NURSE NOTES: Will endorse to night auditor to ask Dr. Abbey Lozano regarding carvedilol dose 12.5 mg. po daily as the pharmacist called to question the once daily dosing. Also, potassium 20mg. po daily stopped as potassium level = 5.4, uric acid elevated and colchicine given in ER. Doctor paged twice.
--- NOTE | 2019-11-17 19:33 | NUR ---
NURSE NOTES: Received patient on bed, awake, talking on the phone. no sob. denies any pain or discomfort. bed locked and in lowest position. reiterated to ask for help or assistance. bed locked and in lowest position. call light and light button within easy reach. will continue plan of care.
--- NOTE | 2019-11-17 19:37 | NUR ---
HAND-OFF: Report given to ANAHY Gunter.
--- NOTE | 2019-11-17 19:40 | NUR ---
NURSE NOTES: Received a phone call from dr. duenas with an order to d/c potassium 20 meq po daily and novolog 12 units subq 3xa day, to have an order of protonix 40 mg po daily, colchicine 0.6mg po daily and novolog sliding scale medium, acamparoeck ac&hs. noted and carried out.
[2019-11-17 20:00] VITALS: BP 154/55
[2019-11-17] MEDS ORDERED: NovoLOG Insulin Flexpen SUBQ SCH (20:00)
[2019-11-17] MEDS: Heparin 5000 units/ml inj SUBQ SCH (20:32)
[2019-11-17] MEDS ORDERED: Levemir Flexpen SUBQ SCH (21:00)
[2019-11-17] MEDS ORDERED: Vitamin D 50,000 units cap ORAL SCH (21:00)
[2019-11-17] MEDS: NovoLOG Insulin Flexpen SUBQ SCH (21:07)
[2019-11-18] VITALS: BP 143/59
[2019-11-18 04:00] VITALS: BP 156/65
[2019-11-18] MEDS: NovoLOG Insulin Flexpen SUBQ SCH ×3 (05:51→17:15)
--- NOTE | 2019-11-18 07:17 | NUR ---
HAND-OFF: Report given to ANAHY dalton.
--- NOTE | 2019-11-18 07:40 | NUR ---
NURSE NOTES: Received patient in bed, A/A/Ox4. legally blind and [place]. no sob noted. denies any pain or discomfort. bed locked and in lowest position. instructed to call for assistance. bed locked and in lowest position. call light is within easy reach. will continue plan of care.
[2019-11-18 08:00] VITALS: BP 156/74
[2019-11-18] MEDS: Heparin 5000 units/ml inj SUBQ SCH (08:53)
[2019-11-18] MEDS ORDERED: Aspirin EC 81mg tab ORAL SCH (09:00)
[2019-11-18] MEDS ORDERED: Milk of Magnesia 30ml Ud ORAL SCH (09:00)
[2019-11-18] MEDS ORDERED: Carvedilol 12.5mg tab ORAL SCH (09:00)
[2019-11-18 12:09] VITALS: BP 152/61
--- NOTE | 2019-11-18 14:06 | NUR ---
CASE MANAGEMENT: INITIAL REVIEW 84YR OLD FEMALE FROM HOME CC: SI:DYSURIA . URINARY INCONTINENCE . GOUT ATTACK 97.8 61 20 181/83 95% ON RA RBC 5.72 NA+ 133 K+ 5.4 BUN 25 BG 263 URIC ACID 8.6 CA+8.6 IS:PYRIDIUM PO X1 IV MORPHIN X1 IV ZOFRAN X1 \: 4E MED SURG UNIT DCP: HOME WHEN MEDICALLY STABLE Addendum: 11/18/19 at 1415 by AXEL CARTWRIGHT LVN CC: BACK PAIN - NO INJURY
[2019-11-18] MEDS ORDERED: TRAMADOL HCL50 MG ORAL (15:18)
--- NOTE | 2019-11-18 15:45 | NUR ---
NURSE NOTES: DISCHARGE HOME WITH INSTRUCTIONS AND RX. VERIFIED HOME ADDRESS. PATIENT PREFERRED TO CALL [facility]. PERSONAL BELONGINGS REVIEWED AND NOTED. WILL CONT TO MONITOR.
[2019-11-18 16:00] VITALS: BP 147/76
--- NOTE | 2019-11-18 18:53 | NUR ---
HAND-OFF: Report given to
--- NOTE | 2019-11-18 19:07 | NUR ---
NURSE NOTES: removed IV heplock. Darci hutchison signed discharge instructions. In stable condition. personal belongings reviewed and signed by Darci hutchison. no acute resp distress noted. endorsed to ANAHY Gunter.
--- NOTE | 2019-11-18 19:15 | NUR ---
NURSE NOTES: patient was discharged to home as ordered per wheelchair accompanied by the son via a private car. alert and oriented. verbally responsive. denies any pain or discomfort. the previous nurse obtained consent for discharge from the son and explained discharge instructions and medications furthermore removed the iv line and the id band. assisted patient and the son to the private car. reiterated to take medications. all belongings was released during discharge. vital signs of 138/78 mmhg, 78 bpm, 19 cpm, 97.9F, 95%.
--- NOTE | 2019-11-18 20:15 | History and Physical Report ---
DATE OF ADMISSION: 11/17/2019 PERTINENT HISTORY: The patient is admitted with generalized body pain, urinary frequency, weakness. HISTORY OF PRESENT ILLNESS: The patient has a history of sarcoidosis, adult-onset diabetes, COPD, CHF, permanent pacemaker, osteoarthritis, gout. She lives at home with family who presents with generalized weakness and pain. She is bothered by urinary frequency. No dysuria. No hematuria or fevers. ALLERGIES: To azithromycin. HOME MEDICATIONS: Include Simbrinza eye drops, carvedilol, Dexilant, vitamin D, Lasix, guaifenesin, insulin glargine and NovoLog, DuoNeb inhalation, Avapro, magnesium hydroxide, potassium, valsartan. HABITS: She is a nondrinker and nonsmoker. SURGERIES: Cholecystectomy, lung surgery, hysterectomy, eye surgery. 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 Hearing is good. ENDOCRINE: History of diabetes with retinopathy, nephropathy, neuropathy. PULMONARY: History of sarcoid, chronic shortness of breath, asthma. CARDIAC: History of CHF, permanent pacemaker. No chest pain at this time. GASTROINTESTINAL: History of GERD. No hematochezia or melena. No nausea or vomiting currently. GENITOURINARY: She has neurogenic bladder, urinary frequency. MUSCULOSKELETAL: History of chronic joint pain, history of gout, and sarcoid. NEUROLOGIC: No CVA or seizures. PHYSICAL EXAMINATION: GENERAL: The patient is a morbidly obese lady lying in bed, with the family at the bedside. VITAL SIGNS: Temperature 98.4, pulse 61, respirations 17, blood pressure 156/74. HEAD, EYES, EARS, NOSE, THROAT: She is legally blind. Sclerae are nonicteric. NECK: No adenopathy. LUNGS: Clear. HEART: Regular rhythm. No murmur. ABDOMEN: Soft, obese. No organomegaly or masses. EXTREMITIES: Show trace edema. There are degenerative changes in the knees, ankles, and hands, but no inflamed joints. NEUROLOGIC: She is alert and oriented. Ocular motions intact in all directions. Smile is symmetric. She moves all extremities equally. PERTINENT LABORATORY DATA: Show a white count 5.5, hemoglobin 13.2. Sodium 133, potassium 5.4, BUN 25, creatinine 1.2, glucose 263. Troponin 0. Uric acid 8.6. IMPRESSION: 1. Generalized pain due to osteoarthritis, sarcoid, gout, and morbid obesity. 2. Urinary frequency with a negative urinalysis, likely neurogenic bladder. 3. Adult-onset diabetes with multiple complications. 4. Morbid obesity. 5. Asthma and COPD. 6. Sarcoidosis. 7. History of gout. PLAN: The patient is observed for symptoms given symptomatic care. We will make discharge planning. Yoni Kolb M.D. DR: SENDY JOB#: [id number] CC:
--- NOTE | 2019-11-21 12:15 | Discharge Summary ---
DATE OF ADMISSION: 11/17/2019 DATE OF DISCHARGE: 11/18/2019 PERTINENT HISTORY: See my dictated History and Physical. The patient presents with generalized pain and urinary frequency. PHYSICAL EXAM: As per dictated History and Physical. HOSPITAL COURSE: The patient had no fever or chills. Labs were stable. There is no evidence of UTI. Her pain was chronic and this was discussed with the family at the bedside. Her exam was stable on the day of discharge. After detailed discussion with the family, she was discharged home in stable condition and follow up in the office per Dr. Abbey Lozano. FINAL DIAGNOSES: 1. Generalized body pain due to osteoarthritis, morbid obesity, gout, sarcoidosis. 2. Urinary frequency due to neurogenic bladder and the use of Lasix. 3. Adult-onset diabetes. 4. Chronic congestive heart failure. 5. Asthma. 6. Gait disorder. DISCHARGE DISPOSITION: Home on her prior to admission medications. I also gave her a short prescription of tramadol 50 mg t.i.d. and she can follow up in the office of Dr. Bojorquez. Sendy Suarez JOB#: [id number] CC:
--- NOTE | 2019-11-22 15:06 | Diagnostic Imaging Report ---
Indication: Shortness of breath Technique: One view of the chest Comparison: 04/18/2019 Findings: A band presumed linear scarring is again seen in the right suprahilar region. There is a left chest pacemaker. Lungs and pleural spaces are otherwise clear. The heart size is normal Impression: No acute process
== END 2019-11-18 19:30 | disposition home or self-care (01) ==
LOC: EDBEDREQ 12:46 → EMR 13:00 → 4E 13:08 → EDBEDREQ 15:40
DX: R32 Unspecified urinary incontinence (principal); R30.0 Dysuria; M10.9 Gout, unspecified; R52 Pain, unspecified; M19.90 Unspecified osteoarthritis, unspecified site; E66.01 Morbid (severe) obesity due to excess calories; E11.9 Type 2 diabetes mellitus without complications; J44.9 Chronic obstructive pulmonary disease, unspecified; J45.909 Unspecified asthma, uncomplicated; D86.9 Sarcoidosis, unspecified; Z79.899 Other long term (current) drug therapy; Z90.49 Acquired absence of other specified parts of digestive tract; Z90.710 Acquired absence of both cervix and uterus; E11.40 Type 2 diabetes mellitus with diabetic neuropathy, unspecified; E11.319 Type 2 diabetes mellitus with unspecified diabetic retinopathy without macular edema; I50.9 Heart failure, unspecified; Z95.0 Presence of cardiac pacemaker; K21.9 Gastro-esophageal reflux disease without esophagitis; Z88.8 Allergy status to other drugs, medicaments and biological substances; I11.0 Hypertensive heart disease with heart failure; M25.572 Pain in left ankle and joints of left foot
CPT/HCPCS: 36415 ×2; 71045; 80053; 81003; 82962 ×2; 83036; 83605; 83690; 84484; 84550; 85025; 85610; 85651; 85730; 93005; 94664 ×2; 96374; 96375; 99284; G0378 ×2; J1644 ×2; J1815; J2270; J2405; S5561

== ENCOUNTER 2020-05-24 17:59 | Inpatient (IN) | payer MEDICARE, MEDICAID ==
[~2020-05-24] VITALS: Ht 165.1 cm; Wt 122.5 kg
[~2020-05-24 17:59] MED LIST changes: +DEXILANT30 MG ORAL; +DIOVAN160 MG ORAL; +TRAMADOL HCL50 MG ORAL
[2020-05-24 18:32] VITALS: BP 174/63
[2020-05-24 19:21] LABS: EOSINOPHILS % (AUTO) 2.6 % (0.0-3.0); HEMATOCRIT 44.3 % (37.0-47.0); HEMOGLOBIN 13.3 G/DL (12.0-16.0); LYMPHOCYTES % (AUTO) 21.4 % (20.0-45.0); MEAN CORPUSCULAR VOLUME 78 FL (80-99); MONOCYTES % (AUTO) 8.2 % (1.0-10.0); NEUTROPHILS % (AUTO) 66.7 % (45.0-75.0); PLATELET COUNT 231 K/UL (150-450); RED BLOOD COUNT 5.67 M/UL (4.20-5.40); RED CELL DISTRIBUTION WIDTH 12.9 % (11.6-14.8); WHITE BLOOD COUNT 7.4 K/UL (4.8-10.8)
[2020-05-24 19:42] LABS: ANION GAP 11 mmol/L (5-15); BLOOD UREA NITROGEN 35 mg/dL (7-18); CALCIUM 10.1 MG/DL (8.5-10.1); CARBON DIOXIDE 23 MMOL/L (21-32); CHLORIDE 104 MMOL/L (98-107); CREATININE 1.6 MG/DL (0.55-1.30); POTASSIUM 5.3 MMOL/L (3.5-5.1); SODIUM 138 MMOL/L (136-145)
[2020-05-24 19:52] LABS: ALANINE AMINOTRANSFERASE 19 U/L (12-78); ALBUMIN 3.5 G/DL (3.4-5.0); ALBUMIN/GLOBULIN RATIO 0.8 (1.0-2.7); ALKALINE PHOSPHATASE 108 U/L (46-116); ASPARTATE AMINO TRANSFERASE 18 U/L (15-37); BILIRUBIN,TOTAL 0.3 MG/DL (0.2-1.0)
[2020-05-24] MEDS ORDERED: Albuterol ud Inhalation HHN ONE (21:30)
[2020-05-24] MEDS ORDERED: Ipratropium 0.02% Inh Soln 2.5ml UD HHN ONE (21:30)
[2020-05-24] MEDS ORDERED: cefTRIAXone 1 GM in NS 55 ML IVPB ONE (21:30)
--- NOTE | 2020-05-24 22:46 | Emergency Room Report ---
History of Present Illness General Chief Complaint: Dyspnea/Respdistress Source: Patient Present Illness HPI This patient has a history of multiple medical problems. She has a history of CHF, COPD, diabetes. She has a pacemaker. She complains of cough and shortness of breath for the past couple weeks. She denies fever or chills. She denies nausea or vomiting. She denies abdominal pain. She denies chest pain. She has no other complaints. 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-19 Testing performed RESPITE CARE PROVIDER: No Patient History Past Medical History: see triage record, DM, HTN, DE, CAD, CHF, COPD Social History: Denies: smoking, alcohol use, drug use Reviewed Nursing Documentation: PMH: Agreed; PSxH: Agreed Nursing Documentation-PMH Hx Hypertension: Yes Hx Pacemaker: Yes Hx Asthma: Yes Hx COPD: Yes Hx Diabetes: Yes Hx Cancer: No Hx Gastrointestinal Problems: Yes Hx Neurological Problems: No Hx Tremors: Yes Hx Vertigo: Yes Hx Dizziness: Yes Hx Syncope: Yes Hx Headaches: Yes Hx Weakness: Yes Hx Fatigue: Yes Review of Systems All Other Systems: negative except mentioned in HPI Physical Exam Vital Signs Date Time Temp Pulse Resp B/P (MAP) Pulse Ox O2 Delivery O2 Flow Rate FiO2 05/24/20 18:20 98.2 68 20 174/63 (100) 96 Room Air 05/24/20 22:31 30 30 Sp02 EP Interpretation: reviewed, normal General Appearance: no apparent distress, alert, GCS 15, non-toxic Head: normocephalic, atraumatic Eyes: bilateral eye normal inspection, bilateral eye PERRL ENT: hearing grossly normal, normal pharynx, no angioedema, normal voice Neck: full range of motion, supple/symm/no masses Respiratory: chest non-tender, no respiratory distress, no retraction, no accessory muscle use, rales, speaking full sentences, wheezing Cardiovascular #1: regular rate, rhythm, edema Gastrointestinal: normal bowel sounds, non tender, soft, non-distended, no guarding, no rebound Rectal: deferred Musculoskeletal: back normal, normal range of motion, non-tender Neurologic: alert, motor strength/tone normal, oriented x3, sensory intact, responsive, speech normal Psychiatric: judgement/insight normal, memory normal, mood/affect normal, no suicidal/homicidal ideation Skin: no rash Medical Decision Making Diagnostic Impression: Primary Impression: Dyspnea Additional Impressions: CHF exacerbation COPD exacerbation ER Course This patient presents in a COVID-19 pandemic. The patient likely has a CHF exacerbation in combination with a COPD exacerbation. The patient's oxygen saturation remained normal in the high 90s. Patient's blood pressure was labile and possibly low at times secondary to the patient's body habitus. Regardless, I decided to treat this patient for COPD exacerbation first and hold off on diuretics in the emergency department. She was given albuterol and Atrovent nebulizer treatments and oral steroids. She is given BiPAP just to decrease her work of breathing. The patient's rapid COVID-19 test was negative. The patient also has findings on chest x-ray it is likely also a CHF exacerbation. I will defer to the inpatient care for any diuresis at this time as the patient will be admitted for further evaluation and treatment. Patient remained stable in the emergency department. She is admitted to the ICU stepdown unit. This patient was evaluated in the context of the global COVID-19 pandemic, which necessitated consideration that the patient might be at risk for infection with the [id number] virus that causes COVID-19. Institutional protocols and algorithms that pertain to the evaluation of patients at risk for COVID-19 and the state of rapid change based on information released by multiple regulatory bodies including the CDC and federal and state organizations. These policies and algorithms were followed during the patient' s care in the ED. This patient is critically ill. This patient required complex medical decision- making, aggressive intervention, extensive laboratory workup and monitoring. Critical care time: 40 minutes. Laboratory Tests Test 05/24/20 19:00 05/24/20 21:15 White Blood Count 7.4 K/UL (4.8-10.8) Red Blood Count 5.67 M/UL (4.20-5.40) H Hemoglobin 13.3 G/DL (12.0-16.0) Hematocrit 44.3 % (37.0-47.0) Mean Corpuscular Volume 78 FL (80-99) L Mean Corpuscular Hemoglobin 23.5 PG (27.0-31.0) L Mean Corpuscular Hemoglobin Concent 30.1 G/DL (32.0-36.0) L Red Cell Distribution Width 12.9 % (11.6-14.8) Platelet Count 231 K/UL (150-450) Mean Platelet Volume 7.2 FL (6.5-10.1) Neutrophils (%) (Auto) 66.7 % (45.0-75.0) Lymphocytes (%) (Auto) 21.4 % (20.0-45.0) Monocytes (%) (Auto) 8.2 % (1.0-10.0) Eosinophils (%) (Auto) 2.6 % (0.0-3.0) Basophils (%) (Auto) 1.0 % (0.0-2.0) Prothrombin Time 21.2 SEC (9.30-11.50) H Prothrombin Time INR 2.0 (0.9-1.1) H Activated Partial Thromboplast Time 31 SEC (23-33) D-Dimer 1.15 mg/L FEU (0.00-0.49) H Sodium Level 138 MMOL/L (136-145) Potassium Level 5.3 MMOL/L (3.5-5.1) H Chloride Level 104 MMOL/L (98-107) Carbon Dioxide Level 23 MMOL/L (21-32) Anion Gap 11 mmol/L (5-15) Blood Urea Nitrogen 35 mg/dL (7-18) H Creatinine 1.6 MG/DL (0.55-1.30) H Estimated Glomerular Filtration Rate 37.1 mL/min (>60) Glucose Level 197 MG/DL (74-106) H Calcium Level 10.1 MG/DL (8.5-10.1) Total Bilirubin 0.3 MG/DL (0.2-1.0) Aspartate Amino Transferase (AST) 18 U/L (15-37) Alanine Aminotransferase (ALT) 19 U/L (12-78) Alkaline Phosphatase 108 U/L (46-116) Troponin I 0.000 ng/mL (0.000-0.056) C-Reactive Protein, Quantitative 1.4 mg/dL (0.00-0.90) H Pro-B-Type Natriuretic Peptide 139 pg/mL (0-125) H Total Protein 8.0 G/DL (6.4-8.2) Albumin 3.5 G/DL (3.4-5.0) Globulin 4.5 g/dL Albumin/Globulin Ratio 0.8 (1.0-2.7) L Lactic Acid Level 0.90 mmol/L (0.4-2.0) Microbiology Date/Time Source Procedure Growth Status 05/24/20 21:15 Nasopharynx SARS-CoV-2 RdRp Gene Assay - Final Complete EKG Diagnostic Results Rate: normal, other - paced with la posta beats in bigeminy pattern. Rhythm: other ST Segments: no acute changes Rhythm Strip Diag. Results EP Interpretation: yes Rate: 60's Rhythm: no PVC's, no ectopy Chest X-Ray Diagnostic Results Chest X-Ray Diagnostic Results : Chest X-Ray Ordered: Yes # of Views/Limited/Complete: 1 View Indication: Shortness of Breath EP Interpretation: Yes Interpretation: other - Diffuse patchy opacities. Last Vital Signs Date Time Temp Pulse Resp B/P (MAP) Pulse Ox O2 Delivery O2 Flow Rate FiO2 05/24/20 22:31 16 100 Bi-Pap 30 30 05/24/20 18:32 68 05/24/20 18:32 98.2 174/63 Status: improved Disposition: ADMITTED INPATIENT Condition: Serious Referrals: Abbey Lozano MD (PCP) Lillian Kennedy DO May 24, 2020 22:45
[2020-05-24 23:10] VITALS: BP 149/64
[2020-05-25 04:00] VITALS: BP 118/57
[2020-05-25 05:14] LABS: HEMATOCRIT 47.2 % (37.0-47.0); HEMOGLOBIN 13.7 G/DL (12.0-16.0); MEAN CORPUSCULAR VOLUME 81 FL (80-99); PLATELET COUNT 190 K/UL (150-450); RED BLOOD COUNT 5.86 M/UL (4.20-5.40); RED CELL DISTRIBUTION WIDTH 12.4 % (11.6-14.8); WHITE BLOOD COUNT 8.1 K/UL (4.8-10.8)
[2020-05-25 05:20] LABS: ANION GAP 11 mmol/L (5-15); BLOOD UREA NITROGEN 36 mg/dL (7-18); CALCIUM 10.1 MG/DL (8.5-10.1); CARBON DIOXIDE 22 MMOL/L (21-32); CHLORIDE 104 MMOL/L (98-107); CREATININE 1.3 MG/DL (0.55-1.30); POTASSIUM 5.9 MMOL/L (3.5-5.1); SODIUM 136 MMOL/L (136-145)
[2020-05-25] MEDS: NovoLOG Insulin Flexpen SUBQ SCH ×4 (06:04→20:44)
[2020-05-25 08:00] VITALS: BP 168/74
--- NOTE | 2020-05-25 08:04 | Consultation ---
Consult Note Consult Note 84 year old patient with CHF exacerbation with a COPD exacerbation. The patient with oxygen desaturation. Patient's with labile blood pressure. She was given albuterol and Atrovent nebulizer treatments and oral steroids. Patient placed on BIPAP. The patient's rapid COVID-19 test was negative in the ER. chest x-ray with pulmonary infiltrates. Patient admitted to [facility]H CHF COPD diabetes osteoarthritis CAD MEDS and allergies reviewed and reconciled SH retired; nonsmoker and nondrinker PHYSICAL WDWN NAD reduced breath sounds bilaterally with some rhonchi [id number] without MRG NABS nontender no HSM no CCE nonfocal weak Laboratory Tests Test 05/24/20 19:00 05/24/20 21:15 05/25/20 04:30 05/25/20 04:59 White Blood Count 7.4 K/UL (4.8-10.8) 8.1 K/UL (4.8-10.8) Red Blood Count 5.67 M/UL (4.20-5.40) H 5.86 M/UL (4.20-5.40) H Hemoglobin 13.3 G/DL (12.0-16.0) 13.7 G/DL (12.0-16.0) Hematocrit 44.3 % (37.0-47.0) 47.2 % (37.0-47.0) H Mean Corpuscular Volume 78 FL (80-99) L 81 FL (80-99) Mean Corpuscular Hemoglobin 23.5 PG (27.0-31.0) L 23.3 PG (27.0-31.0) L Mean Corpuscular Hemoglobin Concent 30.1 G/DL (32.0-36.0) L 29.0 G/DL (32.0-36.0) L Red Cell Distribution Width 12.9 % (11.6-14.8) 12.4 % (11.6-14.8) Platelet Count 231 K/UL (150-450) 190 K/UL (150-450) Mean Platelet Volume 7.2 FL (6.5-10.1) 7.1 FL (6.5-10.1) Neutrophils (%) (Auto) 66.7 % (45.0-75.0) % (45.0-75.0) Lymphocytes (%) (Auto) 21.4 % (20.0-45.0) % (20.0-45.0) Monocytes (%) (Auto) 8.2 % (1.0-10.0) % (1.0-10.0) Eosinophils (%) (Auto) 2.6 % (0.0-3.0) % (0.0-3.0) Basophils (%) (Auto) 1.0 % (0.0-2.0) % (0.0-2.0) Prothrombin Time 21.2 SEC (9.30-11.50) H Prothromb Time International Ratio 2.0 (0.9-1.1) H Activated Partial Thromboplast Time 31 SEC (23-33) D-Dimer 1.15 mg/L FEU (0.00-0.49) H Sodium Level 138 MMOL/L (136-145) 136 MMOL/L (136-145) Potassium Level 5.3 MMOL/L (3.5-5.1) H 5.9 MMOL/L (3.5-5.1) H Chloride Level 104 MMOL/L (98-107) 104 MMOL/L (98-107) Carbon Dioxide Level 23 MMOL/L (21-32) 22 MMOL/L (21-32) Anion Gap 11 mmol/L (5-15) 11 mmol/L (5-15) Blood Urea Nitrogen 35 mg/dL (7-18) H 36 mg/dL (7-18) H Creatinine 1.6 MG/DL (0.55-1.30) H 1.3 MG/DL (0.55-1.30) Estimat Glomerular Filtration Rate 37.1 mL/min (>60) 47.0 mL/min (>60) Glucose Level 197 MG/DL (74-106) H 307 MG/DL (74-106) #H Calcium Level 10.1 MG/DL (8.5-10.1) 10.1 MG/DL (8.5-10.1) Total Bilirubin 0.3 MG/DL (0.2-1.0) Aspartate Amino Transf (AST/SGOT) 18 U/L (15-37) Alanine Aminotransferase (ALT/SGPT) 19 U/L (12-78) Alkaline Phosphatase 108 U/L (46-116) Troponin I 0.000 ng/mL (0.000-0.056) C-Reactive Protein, Quantitative 1.4 mg/dL (0.00-0.90) H Pro-B-Type Natriuretic Peptide 139 pg/mL (0-125) H Total Protein 8.0 G/DL (6.4-8.2) Albumin 3.5 G/DL (3.4-5.0) Globulin 4.5 g/dL Albumin/Globulin Ratio 0.8 (1.0-2.7) L Lactic Acid Level 0.90 mmol/L (0.4-2.0) Neutrophils % (Manual) Pending Lymphocytes % (Manual) Pending Platelet Estimate Pending Platelet Morphology Pending Magnesium Level 1.7 MG/DL (1.8-2.4) L POC Whole Blood Glucose 298 MG/DL (74-106) H IMPRESSION CHF COPD PULMONARY INFILTRATES respiratory distress hypoxemia acute renal failure PLAN care noted consider diuresis empiric antibiotics monitor for change DVT prophylaxis care noted meds as is impression, plan, and exam edited and reviewed in detail care discussed with Rocael Aviles MD May 25, 2020 08:04
[2020-05-25] MEDS: Furosemide 40mg tab ORAL SCH (08:25)
[2020-05-25] MEDS: Aspirin Baby 81mg ORAL SCH (08:25)
[2020-05-25] MEDS: Heparin 5000 units/ml inj SUBQ SCH ×2 (08:26→20:45)
[2020-05-25] MEDS: Carvedilol 12.5mg tab ORAL SCH (08:26)
[2020-05-25] MEDS: Irbesartan 150mg tablet ORAL SCH (08:26)
[2020-05-25 12:00] VITALS: BP 164/52
--- NOTE | 2020-05-25 14:18 | Diagnostic Imaging Report ---
Indication: Shortness of Technique: One view of the chest Comparison: 11/17/2019 Findings: Less optimal inspiration, with crowding of the bronchovascular markings. Linear scarring in the right upper lung is unchanged. Questionable interstitial infiltrates are seen in the bilateral perihilar regions, versus artifact of low lung volumes. Left chest pacemaker again demonstrated Impression: Low lung volumes Cannot rule out bilateral perihilar interstitial infiltrates.
--- NOTE | 2020-05-25 15:45 | History and Physical Report ---
DATE OF ADMISSION: 05/24/2020 CHIEF COMPLAINT: Shortness of breath. HISTORY OF PRESENT ILLNESS: This is an 84-year-old female who is one of my office patients. The patient was seen yesterday by my daughter, Dr. Cedillo Karenradhamirlande. The patient has been complaining of gradual increasing shortness of breath. I discussed the case together with my daughter. We came to the conclusion that the patient needs to be sent to the hospital for admission. The patient did presented to the emergency department and she is admitted. PAST MEDICAL HISTORY: 1. Diastolic heart failure due to hypertensive cardiovascular disease. 2. Hypertensive cardiovascular disease. 3. Morbid obesity. 4. Type 2 diabetes mellitus. 5. COPD. 6. Noncompliance. 7. Status post pacemaker. 8. Sleep apnea. 9. Advanced diabetic nephropathy. 10. Chronic kidney disease, stage 3 due to diabetic nephropathy. 11. Diabetic retinopathy with blindness. MEDICATIONS: Baby aspirin, Coreg, Lasix, NovoLog, Avapro, magnesium sulfate, Protonix, also K-Dur. ALLERGIES: Azithromycin. FAMILY HISTORY: Unremarkable. SOCIAL HISTORY: Patient lives at home. Her family is taking care of her. Her son works in a [employer]. HABITS: She is nonsmoker, nondrinker, and there is no history of illicit drug abuse. REVIEW OF SYSTEMS: HEENT: Hearing normal. Eyesight, the patient is blind due to diabetic retinopathy. ENDOCRINE: Significant for multiorgan type 2 diabetes mellitus, which is poorly controlled. The patient has diabetic nephropathy, retinopathy, neuropathy. RESPIRATORY: She has sleep apnea, COPD. CARDIAC: The patient has history of pacemaker. GASTROINTESTINAL: No history of hematochezia, melena, hematemesis, diarrhea, or constipation. She has diabetic gastroparesis. NEUROLOGIC: No history of stroke, syncope, or Parkinson disease. PHYSICAL EXAMINATION: GENERAL: This is an elderly, morbidly obese female, who is in moderate respiratory distress. VITAL SIGNS: Blood pressure 118/57, pulse 69 regular, respirations 20, temperature 98. HEENT: The head is normocephalic and atraumatic. Pupils are equal, round, and reactive to light and accommodation consensually. NECK: Supple. Trachea midline. There was no lymphadenopathy or thyromegaly. LUNGS: Bilateral wheezes. HEART: Regular rate and rhythm without rubs, murmurs, or gallops. ABDOMEN: Pendulous, soft, nontender. Bowel sounds were active. EXTREMITIES: She has bilateral brawny edema. NEUROLOGIC: She is alert and oriented x4. She is blind, almost totally blind. LABORATORY AND ANCILLARY DATA: CBC within normal limits. Chemistry on admission potassium 5.3, today is 5.9, BUN today 36, creatinine 1.3, yesterday creatinine 1.6, glucose yesterday 197, today 307, magnesium today 1.7. COVID rapid assay of the nasopharynx negative. Chest x-ray reported to show bilateral findings compatible with either probably CHF. ASSESSMENT: 1. Worsening CHF. 2. Diastolic heart failure due to hypertensive cardiovascular disease. 3. Hypertensive cardiovascular disease. 4. Morbid obesity. 5. Type 2 diabetes mellitus. 6. COPD. 7. Noncompliance. 8. Status post pacemaker. 9. Sleep apnea. 10. Advanced diabetic nephropathy. 11. Chronic kidney disease, stage 3 due to diabetic nephropathy. 12. Diabetic retinopathy with blindness. PLAN: 1. Diurese cautiously. 2. Correct hypomagnesemia. 3. Continue home medications. 4. Glycemic control. Abbey Lozano M.D. DR: ADELINA JOB#: [id number] CC:
[2020-05-25 16:00] VITALS: BP 156/67
[2020-05-25 20:00] VITALS: BP 113/64
[2020-05-26] VITALS (7 sets, daily range): BP systolic 118–159; BP diastolic 57–71
[2020-05-26] MEDS: NovoLOG Insulin Flexpen SUBQ SCH ×4 (06:25→20:39)
[2020-05-26 07:10] LABS: BASOPHILS % (AUTO) 0.7 % (0.0-2.0); EOSINOPHILS % (AUTO) 2.5 % (0.0-3.0); HEMATOCRIT 46.8 % (37.0-47.0); HEMOGLOBIN 14.1 G/DL (12.0-16.0); LYMPHOCYTES % (AUTO) 18.5 % (20.0-45.0); MEAN CORPUSCULAR VOLUME 79 FL (80-99); MONOCYTES % (AUTO) 5.6 % (1.0-10.0); NEUTROPHILS % (AUTO) 72.7 % (45.0-75.0); PLATELET COUNT 229 K/UL (150-450); RED BLOOD COUNT 5.93 M/UL (4.20-5.40); RED CELL DISTRIBUTION WIDTH 12.2 % (11.6-14.8); WHITE BLOOD COUNT 10.5 K/UL (4.8-10.8)
[2020-05-26 08:05] LABS: ANION GAP 9 mmol/L (5-15); BLOOD UREA NITROGEN 38 mg/dL (7-18); CALCIUM 10.5 MG/DL (8.5-10.1); CARBON DIOXIDE 25 MMOL/L (21-32); CHLORIDE 102 MMOL/L (98-107); CREATININE 1.4 MG/DL (0.55-1.30); POTASSIUM 5.3 MMOL/L (3.5-5.1); SODIUM 136 MMOL/L (136-145)
[2020-05-26] MEDS: Aspirin Baby 81mg ORAL SCH (09:11)
[2020-05-26] MEDS: Furosemide 40mg tab ORAL SCH (09:11)
[2020-05-26] MEDS: Carvedilol 12.5mg tab ORAL SCH (09:12)
[2020-05-26] MEDS: Irbesartan 150mg tablet ORAL SCH (09:12)
[2020-05-26] MEDS: Heparin 5000 units/ml inj SUBQ SCH ×2 (09:13→20:42)
--- NOTE | 2020-05-26 09:24 | Diagnostic Imaging Report ---
EXAM: XR Chest, 1 View CLINICAL HISTORY: SOB TECHNIQUE: Frontal view of the chest. COMPARISON: Chest x-ray 05/24/201914 FINDINGS: Lungs: Hypoventilatory lungs, slightly improved aeration. Mild perihilar interstitial prominence and left lower lobe/airspace disease, similar to prior study. Linear scarring in the right upper lung is stable. Pleural space: Unremarkable. No pneumothorax. Heart: Unremarkable. No cardiomegaly. Mediastinum: Unremarkable. Bones/joints: Unremarkable. Tubes, lines and devices: Cardiac pacemaker. IMPRESSION: Hypoventilatory lungs with slightly improved aeration. Mild perihilar interstitial prominence and left lower lobe/airspace disease, similar to prior study.
--- NOTE | 2020-05-26 10:06 | Pulmonology Progress Note ---
Subjective ROS Limited/Unobtainable: Yes Allergies: Coded Allergies: AZITHROMYCIN (Verified Allergy, Intermediate, ITCHINESS, 10/15/13) QUESTIONABLE ALLERGIC RXN BUT PT STARTED ITCHING AFTER BEING GIVEN A DOSE BUT PT NOT SURE Subjective care noted COVID negative full code Objective Last 24 Hour Vital Signs Date Time Temp Pulse Resp B/P (MAP) Pulse Ox O2 Delivery O2 Flow Rate FiO2 05/26/20 09:12 145/61 05/26/20 09:12 61 145/61 05/26/20 08:00 Room Air 05/26/20 08:00 97.0 61 20 145/61 (89) 98 61 05/26/20 07:40 65 20 96 Room Air 21 05/26/20 06:18 98.0 62 20 131/57 (81) 96 62 05/26/20 04:00 Room Air 05/26/20 04:00 97.6 67 20 159/65 (96) 95 67 05/26/20 03:43 64 05/26/20 00:00 Room Air 05/26/20 00:00 63 05/26/20 00:00 98.0 65 20 122/71 (88) 97 69 05/25/20 20:00 64 05/25/20 20:00 98.4 69 20 113/64 (80) 98 69 05/25/20 20:00 Room Air 05/25/20 19:13 81 18 95 Room Air 21 05/25/20 16:00 60 05/25/20 16:00 Room Air 05/25/20 16:00 97.5 60 20 156/67 (96) 98 63 05/25/20 12:00 65 05/25/20 12:00 Room Air 05/25/20 12:00 97.9 63 20 164/52 (89) 97 63 Intake and Output 05/25/20 05/26/20 19:00 07:00 Output Total 500 ml 600 ml Balance -500 ml -600 ml Output Urine Total 500 ml 600 ml # Voids 2 Objective WDWN NAD reduced breath sounds bilaterally without rhonchi or wheeze [id number] without MRG NABS nontender no HSM no CCE weak and confused Microbiology Date/Time Source Procedure Growth Status 05/24/20 21:15 Blood Blood Culture - Preliminary NO GROWTH AFTER 24 HOURS Resulted 05/24/20 21:00 Blood Blood Culture - Preliminary NO GROWTH AFTER 24 HOURS Resulted 05/24/20 21:15 Nasopharynx SARS-CoV-2 RdRp Gene Assay - Final Complete Laboratory Tests 05/25/20 12:18: POC Whole Blood Glucose 416H 05/25/20 17:20: POC Whole Blood Glucose 352H 05/26/20 05:30: White Blood Count 10.5, Red Blood Count 5.93H, Hemoglobin 14.1, Hematocrit 46.8 , Mean Corpuscular Volume 79L, Mean Corpuscular Hemoglobin 23.8L, Mean Corpuscular Hemoglobin Concent 30.1L, Red Cell Distribution Width 12.2, Platelet Count 229, Mean Platelet Volume 7.0, Neutrophils (%) (Auto) 72.7, Lymphocytes (%) (Auto) 18.5L, Monocytes (%) (Auto) 5.6, Eosinophils (%) (Auto) 2.5, Basophils (%) (Auto) 0.7, Sodium Level 136, Potassium Level 5.3H, Chloride Level 102, Carbon Dioxide Level 25, Anion Gap 9, Blood Urea Nitrogen 38H, Creatinine 1.4H, Estimat Glomerular Filtration Rate 43.3, Glucose Level 227H, Calcium Level 10.5H, Pro-B-Type Natriuretic Peptide 230H 05/26/20 08:14: Arterial Blood pH 7.330L, Arterial Blood Partial Pressure CO2 44.2, Arterial Blood Partial Pressure O2 70.2L, Arterial Blood HCO3 22.8, Arterial Blood Oxygen Saturation 93.9L, Arterial Blood Base Excess -3.2L, Baljit Test Positive Current Medications Medications (Trade) Dose Ordered Sig/Haider Route PRN Reason Start Time Stop Time Status Last Admin Dose Admin Aspirin (ASA) 81 mg DAILY ORAL 05/25/20 09:00 07/09/20 08:59 05/26/20 09:11 Carvedilol (Coreg) 12.5 mg DAILY ORAL 05/25/20 09:00 06/24/20 08:59 05/26/20 09:12 Dextrose (Dextrose 50%) 25 ml Q30M PRN IV Hypoglycemia 05/25/20 00:15 08/23/20 00:14 Dextrose (Dextrose 50%) 50 ml Q30M PRN IV Hypoglycemia 05/25/20 00:15 08/23/20 00:14 Furosemide (Lasix) 40 mg DAILY ORAL 05/25/20 09:00 06/24/20 08:59 05/26/20 09:11 Heparin Sodium (Porcine) (Heparin 5000 units/ml) 5,000 units EVERY 12 HOURS SUBQ 05/25/20 09:00 07/09/20 08:59 05/26/20 09:13 Insulin Aspart (NovoLOG) BEFORE MEALS AND HS SUBQ 05/25/20 06:30 08/23/20 06:29 05/26/20 06:25 Irbesartan (Avapro) 150 mg DAILY ORAL 05/25/20 09:00 08/23/20 08:59 05/26/20 09:12 Pantoprazole (Protonix) 40 mg DAILY ORAL 05/25/20 09:00 06/24/20 08:59 05/26/20 09:12 Assessment/Plan Assessment/Plan IMPRESSION CHF COPD PULMONARY INFILTRATES respiratory distress hypoxemia acute renal failure PLAN care noted consider diuresis empiric antibiotics monitor for change DVT prophylaxis care noted meds as is impression, plan, and exam edited and reviewed in detail care discussed with Rocael Aviles MD May 26, 2020 10:06
[2020-05-26] MEDS: Albuterol 90mcg Inhaler 8gm INH SCH ×3 (14:24→20:37)
--- NOTE | 2020-05-26 17:41 | General Progress Note ---
Assessment/Plan Problem List: (1) Acute exacerbation of chronic obstructive pulmonary disease ICD Codes: J44.1 - Chronic obstructive pulmonary disease with (acute) exacerbation SNOMED: 870157496 (2) DM (diabetes mellitus), type 1 uncontrolled with peripheral vascular complication ICD Codes: E10.59 - DM (diabetes mellitus), type 1 uncontrolled with peripheral vascular complication SNOMED: 23083073 (3) History of CHF (congestive heart failure) ICD Codes: Z86.79 - Personal history of other diseases of the circulatory system SNOMED: 667352155 (4) Dyspnea ICD Codes: R06.00 - Dyspnea, unspecified SNOMED: 976148640 (5) Respiratory distress ICD Codes: R06.03 - Acute respiratory distress SNOMED: 041059727 Assessment/Plan: covid neg x2, mild hig K, extra lasix, inhalers Subjective Constitutional: Reports: weakness HEENT: Reports: no symptoms Cardiovascular: Reports: no symptoms Respiratory: Reports: cough Gastrointestinal/Abdominal: Reports: no symptoms Genitourinary: Reports: no symptoms Neurologic/Psychiatric: Reports: no symptoms Endocrine: Reports: no symptoms Hematologic/Lymphatic: Reports: no symptoms Allergies: Coded Allergies: AZITHROMYCIN (Verified Allergy, Intermediate, ITCHINESS, 10/15/13) QUESTIONABLE ALLERGIC RXN BUT PT STARTED ITCHING AFTER BEING GIVEN A DOSE BUT PT NOT SURE Objective Last 24 Hour Vital Signs Date Time Temp Pulse Resp B/P (MAP) Pulse Ox O2 Delivery O2 Flow Rate FiO2 05/26/20 16:00 Room Air 05/26/20 16:00 98.1 65 20 129/64 (85) 97 65 05/26/20 12:00 97.6 65 20 138/66 (90) 98 65 05/26/20 12:00 Room Air 05/26/20 11:46 63 05/26/20 09:12 145/61 05/26/20 09:12 61 145/61 05/26/20 08:00 Room Air 05/26/20 08:00 97.0 61 20 145/61 (89) 98 61 05/26/20 07:47 65 05/26/20 07:40 65 20 96 Room Air 21 05/26/20 06:18 98.0 62 20 131/57 (81) 96 62 05/26/20 04:00 Room Air 05/26/20 04:00 97.6 67 20 159/65 (96) 95 67 05/26/20 03:43 64 05/26/20 00:00 Room Air 05/26/20 00:00 63 05/26/20 00:00 98.0 65 20 122/71 (88) 97 69 05/25/20 20:00 64 05/25/20 20:00 98.4 69 20 113/64 (80) 98 69 05/25/20 20:00 Room Air 05/25/20 19:13 81 18 95 Room Air 21 Intake and Output 05/25/20 05/26/20 19:00 07:00 Output Total 500 ml 600 ml Balance -500 ml -600 ml Output Urine Total 500 ml 600 ml # Voids 2 Laboratory Tests 05/26/20 05:30: White Blood Count 10.5, Red Blood Count 5.93H, Hemoglobin 14.1, Hematocrit 46.8 , Mean Corpuscular Volume 79L, Mean Corpuscular Hemoglobin 23.8L, Mean Corpuscular Hemoglobin Concent 30.1L, Red Cell Distribution Width 12.2, Platelet Count 229, Mean Platelet Volume 7.0, Neutrophils (%) (Auto) 72.7, Lymphocytes (%) (Auto) 18.5L, Monocytes (%) (Auto) 5.6, Eosinophils (%) (Auto) 2.5, Basophils (%) (Auto) 0.7, Sodium Level 136, Potassium Level 5.3H, Chloride Level 102, Carbon Dioxide Level 25, Anion Gap 9, Blood Urea Nitrogen 38H, Creatinine 1.4H, Estimat Glomerular Filtration Rate 43.3, Glucose Level 227H, Calcium Level 10.5H, Pro-B-Type Natriuretic Peptide 230H 05/26/20 08:14: Arterial Blood pH 7.330L, Arterial Blood Partial Pressure CO2 44.2, Arterial Blood Partial Pressure O2 70.2L, Arterial Blood HCO3 22.8, Arterial Blood Oxygen Saturation 93.9L, Arterial Blood Base Excess -3.2L, Baljit Test Positive 05/26/20 12:08: POC Whole Blood Glucose 239H Height (Feet): 5 Height (Inches): 5.00 Weight (Pounds): 270 General Appearance: obese EENT: normal ENT inspection Neck: normal alignment, supple Cardiovascular: regular rhythm Respiratory/Chest: rhonchi - bilaterally Abdomen: non tender, soft Edema: no edema noted Arm (L), no edema noted Arm (R), no edema noted Leg (L), no edema noted Leg (R), no edema noted Pedal (L), no edema noted Pedal (R), no edema noted 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
[2020-05-26] MEDS: Wixela 250/50 Inhaler - 60 dose INH SCH (18:00)
[2020-05-26] MEDS: Doxycycline Monohydrate 100mg ORAL SCH (20:37)
[2020-05-26] MEDS ORDERED: Levemir Flexpen SUBQ SCH (21:00)
[2020-05-27] VITALS: BP 135/72
[2020-05-27] MEDS: Albuterol 90mcg Inhaler 8gm INH SCH ×6 (01:00→21:00)
[2020-05-27 04:00] VITALS: BP 123/51
[2020-05-27] MEDS: NovoLOG Insulin Flexpen SUBQ SCH ×4 (06:05→21:00)
--- NOTE | 2020-05-27 07:46 | Pulmonology Progress Note ---
Subjective ROS Limited/Unobtainable: Yes Allergies: Coded Allergies: AZITHROMYCIN (Verified Allergy, Intermediate, ITCHINESS, 10/15/13) QUESTIONABLE ALLERGIC RXN BUT PT STARTED ITCHING AFTER BEING GIVEN A DOSE BUT PT NOT SURE Subjective care noted COVID negative full code Objective Last 24 Hour Vital Signs Date Time Temp Pulse Resp B/P (MAP) Pulse Ox O2 Delivery O2 Flow Rate FiO2 05/27/20 04:00 98.0 65 16 123/51 (75) 97 05/27/20 04:00 Room Air 05/27/20 03:42 67 05/27/20 00:00 98.3 65 18 135/72 (93) 98 05/27/20 00:00 Room Air 05/26/20 23:35 66 05/26/20 20:06 67 20 97 Room Air 21 05/26/20 20:00 97.3 69 16 118/68 (85) 98 05/26/20 20:00 Room Air 05/26/20 19:48 65 05/26/20 16:00 Room Air 05/26/20 16:00 98.1 65 20 129/64 (85) 97 65 05/26/20 15:28 67 05/26/20 12:00 97.6 65 20 138/66 (90) 98 65 05/26/20 12:00 Room Air 05/26/20 11:46 63 05/26/20 09:12 145/61 05/26/20 09:12 61 145/61 05/26/20 08:00 Room Air 05/26/20 08:00 97.0 61 20 145/61 (89) 98 61 05/26/20 07:47 65 Intake and Output 05/26/20 05/27/20 19:00 07:00 Output Total 500 ml 900 ml Balance -500 ml -900 ml Output Urine Total 500 ml 900 ml # Voids 2 Objective WDWN NAD reduced breath sounds bilaterally without rhonchi or wheeze [id number] without MRG NABS nontender no HSM no CCE weak and confused reviewed and edited Microbiology Date/Time Source Procedure Growth Status 05/24/20 21:15 Blood Blood Culture - Preliminary NO GROWTH AFTER 48 HOURS Resulted 05/24/20 21:00 Blood Blood Culture - Preliminary NO GROWTH AFTER 48 HOURS Resulted 05/24/20 21:15 Nasopharynx SARS-CoV-2 RdRp Gene Assay - Final Complete 05/24/20 19:00 Nasopharynx Coronavirus COVID-19 PCR (BRIANNA) - Final Complete Laboratory Tests 05/26/20 08:14: Arterial Blood pH 7.330L, Arterial Blood Partial Pressure CO2 44.2, Arterial Blood Partial Pressure O2 70.2L, Arterial Blood HCO3 22.8, Arterial Blood Oxygen Saturation 93.9L, Arterial Blood Base Excess -3.2L, Baljit Test Positive 05/26/20 12:08: POC Whole Blood Glucose 239H 05/26/20 20:38: POC Whole Blood Glucose [Pending] 05/27/20 06:01: POC Whole Blood Glucose [Pending] Current Medications Medications (Trade) Dose Ordered Sig/Haider Route PRN Reason Start Time Stop Time Status Last Admin Dose Admin Albuterol Sulfate (Proventil MDI) 2 puff Q4HR INH 05/26/20 13:00 08/24/20 12:59 05/27/20 05:10 Aspirin (ASA) 81 mg DAILY ORAL 05/25/20 09:00 07/09/20 08:59 05/26/20 09:11 Carvedilol (Coreg) 12.5 mg DAILY ORAL 05/25/20 09:00 06/24/20 08:59 05/26/20 09:12 Dextrose (Dextrose 50%) 25 ml Q30M PRN IV Hypoglycemia 05/25/20 00:15 08/23/20 00:14 Dextrose (Dextrose 50%) 50 ml Q30M PRN IV Hypoglycemia 05/25/20 00:15 08/23/20 00:14 Doxycycline Monohydrate (Doxycycline Monohydrate) 100 mg EVERY 12 HOURS ORAL 05/26/20 21:00 06/02/20 20:59 05/26/20 20:37 Furosemide (Lasix) 40 mg DAILY ORAL 05/25/20 09:00 06/24/20 08:59 05/26/20 09:11 Heparin Sodium (Porcine) (Heparin 5000 units/ml) 5,000 units EVERY 12 HOURS SUBQ 05/25/20 09:00 07/09/20 08:59 05/26/20 20:42 Insulin Aspart (NovoLOG) BEFORE MEALS AND HS SUBQ 05/25/20 06:30 08/23/20 06:29 05/27/20 06:05 Insulin Detemir (Levemir) 16 units BEDTIME SUBQ 05/26/20 21:00 08/24/20 20:59 05/26/20 20:41 Irbesartan (Avapro) 150 mg DAILY ORAL 05/25/20 09:00 08/23/20 08:59 05/26/20 09:12 Pantoprazole (Protonix) 40 mg DAILY ORAL 05/25/20 09:00 06/24/20 08:59 05/26/20 09:12 Salmeterol Xinafoate/ Fluticasone (Advair 250/50 Diskus) 2 puffs BID INH 05/26/20 18:00 08/24/20 17:59 Assessment/Plan Assessment/Plan IMPRESSION CHF COPD 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
[2020-05-27 08:00] VITALS: BP 116/62
[2020-05-27] MEDS: Wixela 250/50 Inhaler - 60 dose INH SCH ×2 (08:17→18:32)
[2020-05-27] MEDS: Irbesartan 150mg tablet ORAL SCH (08:18)
[2020-05-27] MEDS: Furosemide 40mg tab ORAL SCH (08:18)
[2020-05-27] MEDS: Carvedilol 12.5mg tab ORAL SCH (08:18)
[2020-05-27] MEDS: Doxycycline Monohydrate 100mg ORAL SCH ×2 (08:18→21:53)
[2020-05-27] MEDS: Aspirin Baby 81mg ORAL SCH (08:19)
[2020-05-27] MEDS: Heparin 5000 units/ml inj SUBQ SCH ×2 (08:23→21:54)
[2020-05-27 08:24] LABS: EOSINOPHILS % (AUTO) 4.2 % (0.0-3.0); HEMATOCRIT 44.3 % (37.0-47.0); HEMOGLOBIN 13.1 G/DL (12.0-16.0); LYMPHOCYTES % (AUTO) 25.1 % (20.0-45.0); MEAN CORPUSCULAR VOLUME 81 FL (80-99); MONOCYTES % (AUTO) 10.7 % (1.0-10.0); NEUTROPHILS % (AUTO) 59.1 % (45.0-75.0); PLATELET COUNT 195 K/UL (150-450); RED CELL DISTRIBUTION WIDTH 12.3 % (11.6-14.8); WHITE BLOOD COUNT 6.3 K/UL (4.8-10.8)
[2020-05-27 09:00] LABS: ANION GAP 10 mmol/L (5-15); BLOOD UREA NITROGEN 50 mg/dL (7-18); CALCIUM 10.1 MG/DL (8.5-10.1); CARBON DIOXIDE 24 MMOL/L (21-32); CHLORIDE 104 MMOL/L (98-107); CREATININE 1.6 MG/DL (0.55-1.30); POTASSIUM 5.1 MMOL/L (3.5-5.1); SODIUM 138 MMOL/L (136-145)
[2020-05-27] MEDS ORDERED: Tubing IV Secondary IV ONE (10:00)
[2020-05-27] MEDS ORDERED: D5 1/2NS 1000ml IV ONE (10:00)
[2020-05-27] MEDS ORDERED: NS 275ml ONE (10:00)
[2020-05-27 12:00] VITALS: BP 126/59
--- NOTE | 2020-05-27 15:48 | General Progress Note ---
Assessment/Plan Problem List: (1) Acute exacerbation of chronic obstructive pulmonary disease ICD Codes: J44.1 - Chronic obstructive pulmonary disease with (acute) exacerbation SNOMED: 379558994 (2) DM (diabetes mellitus), type 1 uncontrolled with peripheral vascular complication ICD Codes: E10.59 - DM (diabetes mellitus), type 1 uncontrolled with peripheral vascular complication SNOMED: 04803695 (3) History of CHF (congestive heart failure) ICD Codes: Z86.79 - Personal history of other diseases of the circulatory system SNOMED: 324258694 (4) Dyspnea ICD Codes: R06.00 - Dyspnea, unspecified SNOMED: 983811386 (5) Respiratory distress ICD Codes: R06.03 - Acute respiratory distress SNOMED: 256405030 Assessment/Plan: covid neg x2, mild high K, extra lasix, given 05/26 , f/u lab, mobilize, inhalers Subjective Constitutional: Reports: weakness HEENT: Reports: no symptoms Respiratory: Reports: cough, shortness of breath Gastrointestinal/Abdominal: Reports: no symptoms Genitourinary: Reports: no symptoms Neurologic/Psychiatric: Reports: no symptoms Endocrine: Reports: no symptoms Hematologic/Lymphatic: Reports: no symptoms Allergies: Coded Allergies: AZITHROMYCIN (Verified Allergy, Intermediate, ITCHINESS, 10/15/13) QUESTIONABLE ALLERGIC RXN BUT PT STARTED ITCHING AFTER BEING GIVEN A DOSE BUT PT NOT SURE Objective Last 24 Hour Vital Signs Date Time Temp Pulse Resp B/P (MAP) Pulse Ox O2 Delivery O2 Flow Rate FiO2 05/27/20 12:00 69 05/27/20 12:00 97.9 68 18 126/59 (81) 95 05/27/20 12:00 Room Air 05/27/20 08:18 116/62 05/27/20 08:18 65 116/62 05/27/20 08:00 70 05/27/20 08:00 97.7 65 17 116/62 (80) 97 05/27/20 08:00 Room Air 05/27/20 04:00 98.0 65 16 123/51 (75) 97 05/27/20 04:00 Room Air 05/27/20 03:42 67 05/27/20 00:00 98.3 65 18 135/72 (93) 98 05/27/20 00:00 Room Air 05/26/20 23:35 66 05/26/20 20:06 67 20 97 Room Air 21 05/26/20 20:00 97.3 69 16 118/68 (85) 98 05/26/20 20:00 Room Air 05/26/20 19:48 65 05/26/20 16:00 Room Air 05/26/20 16:00 98.1 65 20 129/64 (85) 97 65 Intake and Output 05/26/20 05/27/20 19:00 07:00 Output Total 500 ml 900 ml Balance -500 ml -900 ml Output Urine Total 500 ml 900 ml # Voids 2 Laboratory Tests 05/26/20 20:38: POC Whole Blood Glucose [Pending] 05/27/20 06:01: POC Whole Blood Glucose [Pending] 05/27/20 08:00: White Blood Count 6.3, Red Blood Count 5.50H, Hemoglobin 13.1, Hematocrit 44.3, Mean Corpuscular Volume 81, Mean Corpuscular Hemoglobin 23.9L, Mean Corpuscular Hemoglobin Concent 29.7L, Red Cell Distribution Width 12.3, Platelet Count 195, Mean Platelet Volume 7.0, Neutrophils (%) (Auto) 59.1, Lymphocytes (%) (Auto) 25.1, Monocytes (%) (Auto) 10.7H, Eosinophils (%) (Auto) 4.2H, Basophils (%) ( Auto) 1.0, Sodium Level 138, Potassium Level 5.1, Chloride Level 104, Carbon Dioxide Level 24, Anion Gap 10, Blood Urea Nitrogen 50H, Creatinine 1.6H, Estimat Glomerular Filtration Rate 37.1, Glucose Level 251H, Calcium Level 10.1 Height (Feet): 5 Height (Inches): 5.00 Weight (Pounds): 270 General Appearance: morbidly obese EENT: normal ENT inspection Neck: normal alignment Cardiovascular: normal rate, regular rhythm Respiratory/Chest: rhonchi - bilaterally Abdomen: non tender, soft Edema: no edema noted Arm (L), no edema noted Arm (R), no edema noted Leg (L), no edema noted Leg (R), no edema noted Pedal (L), no edema noted Pedal (R), no edema noted 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
[2020-05-27 16:00] VITALS: BP 117/54
[2020-05-27 20:00] VITALS: BP 118/73
[2020-05-27] MEDS ORDERED: Levemir Flexpen SUBQ SCH (21:00)
[2020-05-28] VITALS: BP 149/77
[2020-05-28] MEDS: Albuterol ud Inhalation HHN SCH ×4 (02:28→15:50)
[2020-05-28 04:00] VITALS: BP 152/71
[2020-05-28] MEDS: NovoLOG Insulin Flexpen SUBQ SCH ×3 (06:23→16:35)
[2020-05-28 06:56] LABS: BASOPHILS % (AUTO) 1.3 % (0.0-2.0); EOSINOPHILS % (AUTO) 4.1 % (0.0-3.0); HEMATOCRIT 42.4 % (37.0-47.0); HEMOGLOBIN 12.5 G/DL (12.0-16.0); MEAN CORPUSCULAR VOLUME 80 FL (80-99); MONOCYTES % (AUTO) 9.8 % (1.0-10.0); NEUTROPHILS % (AUTO) 59.9 % (45.0-75.0); PLATELET COUNT 193 K/UL (150-450); RED BLOOD COUNT 5.32 M/UL (4.20-5.40); RED CELL DISTRIBUTION WIDTH 12.3 % (11.6-14.8); WHITE BLOOD COUNT 5.9 K/UL (4.8-10.8)
[2020-05-28 07:06] LABS: ANION GAP 9 mmol/L (5-15); BLOOD UREA NITROGEN 53 mg/dL (7-18); CARBON DIOXIDE 26 MMOL/L (21-32); CHLORIDE 104 MMOL/L (98-107); CREATININE 1.5 MG/DL (0.55-1.30); POTASSIUM 4.6 MMOL/L (3.5-5.1); SODIUM 139 MMOL/L (136-145)
--- NOTE | 2020-05-28 07:59 | Pulmonology Progress Note ---
Subjective ROS Limited/Unobtainable: Yes Allergies: Coded Allergies: AZITHROMYCIN (Verified Allergy, Intermediate, ITCHINESS, 10/15/13) QUESTIONABLE ALLERGIC RXN BUT PT STARTED ITCHING AFTER BEING GIVEN A DOSE BUT PT NOT SURE Subjective care noted COVID negative full code no significant congesetion Objective Last 24 Hour Vital Signs Date Time Temp Pulse Resp B/P (MAP) Pulse Ox O2 Delivery O2 Flow Rate FiO2 05/28/20 07:45 64 18 99 Room Air 21 61 18 92 05/28/20 04:00 98.0 65 20 152/71 (98) 98 05/28/20 04:00 72 05/28/20 03:09 Room Air Room Air 05/28/20 02:38 67 18 99 Room Air 21 05/28/20 02:28 68 18 96 Room Air 21 05/28/20 00:00 98.0 65 20 149/77 (101) 98 05/28/20 00:00 60 05/27/20 23:44 Room Air Room Air 05/27/20 20:00 Room Air Room Air 05/27/20 20:00 97.7 64 20 118/73 (88) 95 05/27/20 19:38 64 18 96 Room Air 21 05/27/20 19:08 66 05/27/20 16:00 Room Air 05/27/20 16:00 97.6 65 20 117/54 (75) 96 05/27/20 15:48 60 05/27/20 12:00 69 05/27/20 12:00 97.9 68 18 126/59 (81) 95 05/27/20 12:00 Room Air 05/27/20 08:18 116/62 05/27/20 08:18 65 116/62 05/27/20 08:00 70 05/27/20 08:00 97.7 65 17 116/62 (80) 97 05/27/20 08:00 Room Air Intake and Output 05/27/20 05/28/20 19:00 07:00 Intake Total 120 ml 300 ml Output Total 800 ml 1200 ml Balance -680 ml -900 ml Intake Oral 120 ml 300 ml Output Urine Total 800 ml 1200 ml Objective WDWN NAD reduced breath sounds bilaterally without rhonchi or wheeze [id number] without MRG NABS nontender no HSM no CCE weak and confused reviewed and edited Laboratory Tests 05/27/20 08:00: White Blood Count 6.3, Red Blood Count 5.50H, Hemoglobin 13.1, Hematocrit 44.3, Mean Corpuscular Volume 81, Mean Corpuscular Hemoglobin 23.9L, Mean Corpuscular Hemoglobin Concent 29.7L, Red Cell Distribution Width 12.3, Platelet Count 195, Mean Platelet Volume 7.0, Neutrophils (%) (Auto) 59.1, Lymphocytes (%) (Auto) 25.1, Monocytes (%) (Auto) 10.7H, Eosinophils (%) (Auto) 4.2H, Basophils (%) ( Auto) 1.0, Sodium Level 138, Potassium Level 5.1, Chloride Level 104, Carbon Dioxide Level 24, Anion Gap 10, Blood Urea Nitrogen 50H, Creatinine 1.6H, Estimat Glomerular Filtration Rate 37.1, Glucose Level 251H, Calcium Level 10.1 05/27/20 21:41: POC Whole Blood Glucose 252H 05/28/20 03:19: White Blood Count 5.9, Red Blood Count 5.32, Hemoglobin 12.5, Hematocrit 42.4, Mean Corpuscular Volume 80, Mean Corpuscular Hemoglobin 23.4L, Mean Corpuscular Hemoglobin Concent 29.4L, Red Cell Distribution Width 12.3, Platelet Count 193, Mean Platelet Volume 6.5, Neutrophils (%) (Auto) 59.9, Lymphocytes (%) (Auto) 25.0, Monocytes (%) (Auto) 9.8, Eosinophils (%) (Auto) 4.1H, Basophils (%) (Auto ) 1.3, Sodium Level 139, Potassium Level 4.6, Chloride Level 104, Carbon Dioxide Level 26, Anion Gap 9, Blood Urea Nitrogen 53H, Creatinine 1.5H, Estimat Glomerular Filtration Rate 39.9, Glucose Level 267H, Calcium Level 10.0 05/28/20 05:52: POC Whole Blood Glucose 247H Current Medications Medications (Trade) Dose Ordered Sig/Haider Route PRN Reason Start Time Stop Time Status Last Admin Dose Admin Albuterol Sulfate (Proventil) 2.5 mg Q4HRT HHN 05/28/20 03:00 06/02/20 02:59 05/28/20 07:35 Aspirin (ASA) 81 mg DAILY ORAL 05/25/20 09:00 07/09/20 08:59 05/27/20 08:19 Carvedilol (Coreg) 12.5 mg DAILY ORAL 05/25/20 09:00 06/24/20 08:59 05/27/20 08:18 Dextrose (Dextrose 50%) 25 ml Q30M PRN IV Hypoglycemia 05/25/20 00:15 08/23/20 00:14 Dextrose (Dextrose 50%) 50 ml Q30M PRN IV Hypoglycemia 05/25/20 00:15 08/23/20 00:14 Doxycycline Monohydrate (Doxycycline Monohydrate) 100 mg EVERY 12 HOURS ORAL 05/26/20 21:00 06/02/20 20:59 05/27/20 21:53 Furosemide (Lasix) 40 mg DAILY ORAL 05/25/20 09:00 06/24/20 08:59 05/27/20 08:18 Heparin Sodium (Porcine) (Heparin 5000 units/ml) 5,000 units EVERY 12 HOURS SUBQ 05/25/20 09:00 07/09/20 08:59 05/27/20 21:54 Insulin Aspart (NovoLOG) BEFORE MEALS AND HS SUBQ 05/25/20 06:30 08/23/20 06:29 05/28/20 06:23 Insulin Detemir (Levemir) 22 units BEDTIME SUBQ 05/27/20 21:00 08/25/20 20:59 05/27/20 21:00 Irbesartan (Avapro) 150 mg DAILY ORAL 05/25/20 09:00 08/23/20 08:59 05/27/20 08:18 Pantoprazole (Protonix) 40 mg DAILY ORAL 05/25/20 09:00 06/24/20 08:59 05/27/20 08:18 Salmeterol Xinafoate/ Fluticasone (Advair 250/50 Diskus) 2 puffs BID INH 05/26/20 18:00 08/24/20 17:59 05/27/20 18:32 Assessment/Plan Assessment/Plan IMPRESSION CHF COPD 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
[2020-05-28 08:00] VITALS: BP 136/54
[2020-05-28] MEDS: Carvedilol 12.5mg tab ORAL SCH (08:54)
[2020-05-28] MEDS: Aspirin Baby 81mg ORAL SCH (08:55)
[2020-05-28] MEDS: Doxycycline Monohydrate 100mg ORAL SCH (08:55)
[2020-05-28] MEDS: Irbesartan 150mg tablet ORAL SCH (08:55)
[2020-05-28] MEDS: Furosemide 40mg tab ORAL SCH (08:56)
[2020-05-28] MEDS: Wixela 250/50 Inhaler - 60 dose INH SCH ×2 (08:57→17:33)
[2020-05-28] MEDS: Heparin 5000 units/ml inj SUBQ SCH (08:57)
--- NOTE | 2020-05-28 11:33 | General Progress Note ---
Assessment/Plan Assessment/Plan: COPD Exacerbation - better. CHF better DC home. Has no home BIPAP. Arranging!!! Subjective Allergies: Coded Allergies: AZITHROMYCIN (Verified Allergy, Intermediate, ITCHINESS, 10/15/13) QUESTIONABLE ALLERGIC RXN BUT PT STARTED ITCHING AFTER BEING GIVEN A DOSE BUT PT NOT SURE Subjective Much less SOB. Objective Last 24 Hour Vital Signs Date Time Temp Pulse Resp B/P (MAP) Pulse Ox O2 Delivery O2 Flow Rate FiO2 05/28/20 08:55 136/54 05/28/20 08:54 65 136/54 05/28/20 08:00 60 05/28/20 08:00 97.3 65 18 136/54 (81) 98 05/28/20 08:00 Room Air 2.0 Nasal Cannula 05/28/20 07:45 64 18 99 Room Air 21 61 18 92 05/28/20 04:00 98.0 65 20 152/71 (98) 98 05/28/20 04:00 72 05/28/20 03:09 Room Air Room Air 05/28/20 02:38 67 18 99 Room Air 21 05/28/20 02:28 68 18 96 Room Air 21 05/28/20 00:00 98.0 65 20 149/77 (101) 98 05/28/20 00:00 60 05/27/20 23:44 Room Air Room Air 05/27/20 20:00 Room Air Room Air 05/27/20 20:00 97.7 64 20 118/73 (88) 95 05/27/20 19:38 64 18 96 Room Air 21 05/27/20 19:08 66 05/27/20 16:00 Room Air 05/27/20 16:00 97.6 65 20 117/54 (75) 96 05/27/20 15:48 60 05/27/20 12:00 69 05/27/20 12:00 97.9 68 18 126/59 (81) 95 05/27/20 12:00 Room Air Intake and Output 05/27/20 05/28/20 19:00 07:00 Intake Total 120 ml 300 ml Output Total 800 ml 1200 ml Balance -680 ml -900 ml Intake Oral 120 ml 300 ml Output Urine Total 800 ml 1200 ml Laboratory Tests 05/27/20 21:41: POC Whole Blood Glucose 252H 05/28/20 03:19: White Blood Count 5.9, Red Blood Count 5.32, Hemoglobin 12.5, Hematocrit 42.4, Mean Corpuscular Volume 80, Mean Corpuscular Hemoglobin 23.4L, Mean Corpuscular Hemoglobin Concent 29.4L, Red Cell Distribution Width 12.3, Platelet Count 193, Mean Platelet Volume 6.5, Neutrophils (%) (Auto) 59.9, Lymphocytes (%) (Auto) 25.0, Monocytes (%) (Auto) 9.8, Eosinophils (%) (Auto) 4.1H, Basophils (%) (Auto ) 1.3, Sodium Level 139, Potassium Level 4.6, Chloride Level 104, Carbon Dioxide Level 26, Anion Gap 9, Blood Urea Nitrogen 53H, Creatinine 1.5H, Estimat Glomerular Filtration Rate 39.9, Glucose Level 267H, Calcium Level 10.0 05/28/20 05:52: POC Whole Blood Glucose 247H Height (Feet): 5 Height (Inches): 5.00 Weight (Pounds): 270 Objective Morbidly obese! Less wheezes. Neck no JVD. CV RR Abd SNT. BS + E B +2 Edema. Abbey Lozano MD May 28, 2020 11:33
[2020-05-28 12:00] VITALS: BP 147/51
[2020-05-28 16:00] VITALS: BP 134/74
--- NOTE | 2020-05-29 12:20 | Discharge Summary ---
Discharge Summary Discharge Summary _ DATE OF ADMISSION: 05/24/2020 DATE OF DISCHARGE: 05/28/2020 DISCHARGED BY: Dr. 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 Patient was seen in the office with complaint of gradually increasing shortness of breath. Patient subsequently was advised to come to ER for further evaluation and management. Upon evaluation blood pressure was elevated 174/63 , patient required supplemental oxygen . Laboratory work-up revealed no leukocytosis, stable hemoglobin, hematocrit and platelet count. Potassium 5.3. BUN 35, creatinine 1.6. Glucose 197. Troponin negative, pro BNP 139. EKG revealed paced rhythm . Chest x-ray showed low lung volumes, crowding of bronchovascular markings , questionable interstitial infiltrates in bilateral perihilar regions. Patient admitted for COPD and CHF exacerbation. [facility] pulmonary Dr. Bello [facility] COURSE: Patient admitted to stepdown unit. Patient started on cautious diuresis with close monitoring of volumes and cardiorenal parameters. Hypomagnesemia was corrected ( Mg low on 05/25). Home medication continued. Blood sugar was managed with long-acting Levemir and sliding scale of insulin as needed. Blood pressure was managed with angiotensin receptor tita and beta-tita. Antiplatelet therapy with aspirin continued. COVID by PCR and rapid both negative. Blood cultures were negative. Supplemental oxygen provided and titrated to keep pulse oximetry above 92% . Pulmonary toilet provided. Patient started on empiric antibiotic for possible pneumonia. Chest x-ray was repeated and revealed hypoventilatory lungs with slightly improved aeration. Creatinine remained at baseline 1.5. Nephrotoxic's were avoided. Patient had no BiPAP at home, which was arranged to be delivered to patient home. Patient clinically stabilized and was ready for discharge home with home health services to follow. FINAL DIAGNOSES: COPD exacerbation Worsening CHF, diastolic (due to hypertensive cardiovascular disease) Pulmonary infiltrates Respiratory distress Hypoxemia Chronic kidney disease, stage 3 due to diabetic nephropathy Hypertensive cardiovascular disease. Sleep apnea. Status post pacemaker Type 2 diabetes mellitus Advanced diabetic nephropathy. Diabetic retinopathy with blindness. Morbid obesity. DISCHARGE MEDICATIONS: See Medication Reconciliation list. DISCHARGE INSTRUCTIONS: Patient was discharged home with home health services. Follow up with primary care provider in one week. I have been assigned to dictate discharge summary for this account. I was not involved in the patient's management. Brigida Richards NP May 29, 2020 12:20
== END 2020-05-28 19:55 | disposition home health service (06) | DRG 190 ==
LOC: EMR 18:15 → 2W 20:32 → EDBEDREQ 20:57 → EDBEDREQSVC 21:40 → EDBEDREQ 21:40 → 2W 22:25
DX: J44.1 Chronic obstructive pulmonary disease with (acute) exacerbation (principal); I50.33 Acute on chronic diastolic (congestive) heart failure; N17.9 Acute kidney failure, unspecified; Z68.41 Body mass index [BMI] 40.0-44.9, adult; E11.21 Type 2 diabetes mellitus with diabetic nephropathy; N18.3 Chronic kidney disease, stage 3 (moderate); E11.311 Type 2 diabetes mellitus with unspecified diabetic retinopathy with macular edema; G47.33 Obstructive sleep apnea (adult) (pediatric); I11.0 Hypertensive heart disease with heart failure; M19.90 Unspecified osteoarthritis, unspecified site; Z88.1 Allergy status to other antibiotic agents; Z79.82 Long term (current) use of aspirin; Z79.4 Long term (current) use of insulin; Z95.0 Presence of cardiac pacemaker; E11.319 Type 2 diabetes mellitus with unspecified diabetic retinopathy without macular edema; R09.02 Hypoxemia
CPT/HCPCS: 36415; 36600; 71045; 80048; 80053; 82803; 82962; 83605; 83735; 83880; 84484; 85007; 85025; 85379; 85610; 85730; 86140; 87040; 93005; 94640; 94664; 96365; 99291; J1815; S5561; U0002

== ENCOUNTER 2020-08-02 10:34 | Inpatient (IN) | payer MEDICARE, MEDICAID ==
[~2020-08-02] VITALS: Ht 162.6 cm; Wt 116.0 kg
[2020-08-02 10:55] VITALS: BP 119/67
--- NOTE | 2020-08-02 11:00 | NUR ---
ED Nurse Note: Pt came in to ER via wheelchair from home with c/o persistent cough with shortness of breath going on for 2 weeks. Pt is AOx4, calm and coopertive, VSS, satting at 91-96% on RA. Pt also complains of fatigue; pt was placed on bed, hooked to hall monitor, assessed with pacemaker on the LT side. will continue to monitor. Safety measures in placed.
--- NOTE | 2020-08-02 11:05 | NUR ---
ED Nurse Note: Pt hooked up monitor, satting at 96% on RA. ERMD at bedside.
--- NOTE | 2020-08-02 11:07 | Emergency Room Report ---
History of Present Illness General Chief Complaint: Dyspnea/Respdistress Source: Patient Present Illness HPI 85 year old female with past medical history of hypertensive cardiovascular disease, type 2 diabetes mellitus, COPD, status post pacemaker implantation, advanced diabetic nephropathy, chronic kidney disease stage 3 due to diabetic nephropathy, diabetic retinopathy with blindness, diastolic heart failure, with coughing, shortness of breath x2 weeks, severity moderate with sputum production no fevers no chills no chest pain, no nausea no vomiting symptoms have been constant patient presents for evaluation and treatment 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-19 Testing performed ARMED GUARD: No Patient History Past Medical History: see triage record Last Menstrual Period: na Reviewed Nursing Documentation: PMH: Agreed; PSxH: Agreed Nursing Documentation-PMH Past Medical History: No History, Except For Hx Hypertension: Yes Hx Pacemaker: Yes Hx Asthma: Yes Hx COPD: Yes Hx Diabetes: Yes Hx Cancer: No Hx Gastrointestinal Problems: Yes Hx Neurological Problems: No Hx Tremors: Yes Hx Vertigo: Yes Hx Dizziness: Yes Hx Syncope: Yes Hx Headaches: Yes Hx Weakness: Yes Hx Fatigue: Yes Review of Systems All Other Systems: negative except mentioned in HPI Physical Exam Vital Signs Date Time Temp Pulse Resp B/P (MAP) Pulse Ox O2 Delivery O2 Flow Rate FiO2 08/02/20 10:40 98.1 86 25 119/67 (84) 91 Room Air Sp02 EP Interpretation: reviewed, normal General Appearance: no apparent distress, alert Head: normocephalic, atraumatic Eyes: bilateral eye PERRL, bilateral eye EOMI ENT: uvula midline, moist mucus membranes Neck: supple, thyroid normal, supple/symm/no masses Respiratory: decreased breath sounds, accessory muscle use, wheezing Cardiovascular #1: normal peripheral pulses, no edema, no gallop, no murmur, tachycardia Gastrointestinal: non tender, soft, no guarding, no rebound Musculoskeletal: normal inspection Neurologic: alert, oriented x3 Psychiatric: mood/affect normal Skin: no rash, warm/dry Medical Decision Making Diagnostic Impression: Primary Impression: Dyspnea Qualified Codes: R06.00 - Dyspnea, unspecified Additional Impressions: Pulmonary edema Qualified Codes: J81.0 - Acute pulmonary edema CHF (congestive heart failure) Qualified Codes: I50.9 - Heart failure, unspecified ER Course 85-year-old female presents with acute shortness of breath differential diagnosis includes CHF exacerbation, COPD exacerbation, COVID Zosyn initially given due to concerns for possible pneumonia given cough Patient found to have some mild pulmonary edema, patient given Lasix, plan for admission for CHF exacerbation Patient admitted to Dr. Bryant Laboratory Tests Test 08/02/20 11:00 White Blood Count 5.8 K/UL (4.8-10.8) Red Blood Count 5.88 M/UL (4.20-5.40) H Hemoglobin 13.2 G/DL (12.0-16.0) Hematocrit 43.8 % (37.0-47.0) Mean Corpuscular Volume 75 FL (80-99) L Mean Corpuscular Hemoglobin 22.5 PG (27.0-31.0) L Mean Corpuscular Hemoglobin Concent 30.2 G/DL (32.0-36.0) L Red Cell Distribution Width 11.7 % (11.6-14.8) Platelet Count 290 K/UL (150-450) Mean Platelet Volume 6.2 FL (6.5-10.1) L Neutrophils (%) (Auto) 72.3 % (45.0-75.0) Lymphocytes (%) (Auto) 15.2 % (20.0-45.0) L Monocytes (%) (Auto) 10.5 % (1.0-10.0) H Eosinophils (%) (Auto) 1.3 % (0.0-3.0) Basophils (%) (Auto) 0.7 % (0.0-2.0) Sodium Level 142 MMOL/L (136-145) Potassium Level 4.7 MMOL/L (3.5-5.1) Chloride Level 105 MMOL/L (98-107) Carbon Dioxide Level 26 MMOL/L (21-32) Anion Gap 12 mmol/L (5-15) Blood Urea Nitrogen 25 mg/dL (7-18) H Creatinine 1.4 MG/DL (0.55-1.30) H Estimated Glomerular Filtration Rate 43.0 mL/min (>60) Glucose Level 271 MG/DL (74-106) H Lactic Acid Level 1.90 mmol/L (0.4-2.0) Calcium Level 9.8 MG/DL (8.5-10.1) Total Bilirubin 0.5 MG/DL (0.2-1.0) Aspartate Amino Transferase (AST) 38 U/L (15-37) H Alanine Aminotransferase (ALT) 28 U/L (12-78) Alkaline Phosphatase 79 U/L (46-116) Troponin I 0.000 ng/mL (0.000-0.056) Pro-B-Type Natriuretic Peptide 252 pg/mL (0-125) H Total Protein 7.8 G/DL (6.4-8.2) Albumin 2.6 G/DL (3.4-5.0) L Globulin 5.2 g/dL Albumin/Globulin Ratio 0.5 (1.0-2.7) L EKG Diagnostic Results EKG Time: 11:23 EP Interpretation: NSR, rate 80, QTc 408, no acute ST elevations, normal axis Rhythm Strip Diag. Results Rhythm Strip Time: 12:27 EP Interpretation: yes Rate: 75 Rhythm: NSR, no PVC's, no ectopy Chest X-Ray Diagnostic Results Chest X-Ray Diagnostic Results : Chest X-Ray Ordered: Yes # of Views/Limited/Complete: 1 View Indication: Shortness of Breath EP Interpretation: Yes Interpretation: other - Pulmonary edema Impression: Other - Pulmonary edema Electronically Signed by: Nikolai Castellanos MD Last Vital Signs Date Time Temp Pulse Resp B/P (MAP) Pulse Ox O2 Delivery O2 Flow Rate FiO2 08/02/20 10:40 98.1 86 25 119/67 (84) 91 Room Air Disposition: ADMITTED INPATIENT Condition: Stable Nikolai Castellanos MD Aug 02, 2020 11:07
--- NOTE | 2020-08-02 11:10 | NUR ---
ED Nurse Note: Blood w/ cultures, lactic and rapid covid sent to labs.
[2020-08-02] MEDS ORDERED: Piperacillin/Tazobactam 3.375 GM in NS 110 ML IVPB ONE (11:15)
[2020-08-02 11:17] LABS: BASOPHILS % (AUTO) 0.7 % (0.0-2.0); EOSINOPHILS % (AUTO) 1.3 % (0.0-3.0); HEMATOCRIT 43.8 % (37.0-47.0); HEMOGLOBIN 13.2 G/DL (12.0-16.0); LYMPHOCYTES % (AUTO) 15.2 % (20.0-45.0); MEAN CORPUSCULAR VOLUME 75 FL (80-99); MONOCYTES % (AUTO) 10.5 % (1.0-10.0); NEUTROPHILS % (AUTO) 72.3 % (45.0-75.0); PLATELET COUNT 290 K/UL (150-450); RED BLOOD COUNT 5.88 M/UL (4.20-5.40); RED CELL DISTRIBUTION WIDTH 11.7 % (11.6-14.8); WHITE BLOOD COUNT 5.8 K/UL (4.8-10.8)
[2020-08-02 11:32] LABS: CALCIUM 9.8 MG/DL (8.5-10.1); CREATININE 1.4 MG/DL (0.55-1.30); POTASSIUM 4.7 MMOL/L (3.5-5.1)
--- NOTE | 2020-08-02 11:33 | NUR ---
ED Nurse Note: COVID swab sent to lab
[2020-08-02 11:43] LABS: ALBUMIN 2.6 G/DL (3.4-5.0); ALBUMIN/GLOBULIN RATIO 0.5 (1.0-2.7); BILIRUBIN,TOTAL 0.5 MG/DL (0.2-1.0)
--- NOTE | 2020-08-02 13:39 | Diagnostic Imaging Report ---
Procedure: XRAY Chest 1v Reason for study: Reason For Exam: SOB Comparison films: 05/26/2020. FINDINGS: Cardiac pacer remains in place. Vascularity is normal. There are bibasilar densities either atelectasis versus mild infiltrates. Cardiac and mediastinal silhouette are within normal limits. CP angles are sharp. The bony thorax appear unremarkable. IMPRESSION: Bibasilar atelectasis versus mild infiltrates.
--- NOTE | 2020-08-02 14:16 | NUR ---
NURSE NOTES: Rcvd report from Jocelyne, pt will be transferred soon, bed and room ready.
[2020-08-02] MEDS ORDERED: FUROSEMIDE80 M1 ORAL (14:24)
--- NOTE | 2020-08-02 14:24 | NUR ---
ED Nurse Note: Report was given to ANAHY Mendes in Telemetry Unit. Pt was transferred on stable condition, under the care of Dr. Bryant. All belongings was sent to pt.
--- NOTE | 2020-08-02 14:30 | NUR ---
NURSE NOTES: Received patient from ED. Transferred to bed. campus monitor placed. IV line on RAC g22 intact and patent. A and O x 4, pleasant disposition. Noted with cough. With SOB, no acute respiratory distress. On room air. Skin intact. Vital signs taken and recorded. Belongings accounted for. Oriented to room and call light. HOB elevated. Side rails up x 2. Purewick placed. Dr Lozano made aware of admission. Will continue plan of care.
[2020-08-02 15:41] VITALS: BP 136/54
--- NOTE | 2020-08-02 16:59 | History and Physical Report ---
DATE OF ADMISSION: 08/02/2020 CHIEF COMPLAINT: Shortness of breath. HISTORY OF PRESENT ILLNESS: This is an 85-year-old female with multiple medical problems. The patient presented to the emergency department complaining of gradually increasing shortness of breath during the last 2 weeks. The patient is admitted to telemetry. The differential diagnosis is congestive heart failure versus COVID-19 pneumonia. The patient denies any symptoms compatible with COVID-19, i.e., fever or malaise prior to admission. In fact, the patient today claims she was in the ED previously and was tested negative for COVID-19. PAST MEDICAL HISTORY: 1. Type 2 diabetes mellitus. 2. Diastolic heart failure. 3. Status post pacemaker. 4. Severe diabetic neuropathy. 5. Diabetic nephropathy. 6. Chronic kidney disease stage 3. 7. Advanced diabetic retinopathy with blindness. 8. Hypertensive cardiovascular disease. 9. Noncompliance with medications. HOME MEDICATIONS: Baby aspirin, Coreg, Dexilant, Lasix, NovoLog before meals, Lantus, potassium chloride, valsartan. ALLERGIES: Azithromycin. FAMILY HISTORY: Unremarkable. SOCIAL HISTORY: She lives at home. The patient has very sketchy home care and was offered to be admitted to a usp, but the patient and family declined. The patient has had multiple office visits with documented blood sugars more than 300. REVIEW OF SYSTEMS: HEENT: Hearing normal. Eyesight, the patient is legally blind. ENDOCRINE: She has multiorgan type 2 diabetes mellitus with diabetic retinopathy with blindness, diabetic neuropathy, diabetic nephropathy, diabetic vasculopathy, diabetic gastroparesis. RESPIRATORY: Please refer to history of present illness and past medical history. CARDIAC: She has diastolic heart failure. GASTROINTESTINAL: She has diabetic gastroparesis. GENITOURINARY: She denies dysuria, frequency, urgency, or hematuria. NEUROLOGICAL: No history of stroke. PHYSICAL EXAMINATION: GENERAL: This is an elderly, morbidly obese female who is in no acute distress. VITAL SIGNS: Blood pressure 136/54, pulse 74, temperature 99, respiratory rate 20, O2 saturation 92% on room air. HEENT: The head is normocephalic and atraumatic. Pupils are equal, round, reactive to light and accommodation consensually. NECK: Supple. Trachea midline. There was no lymphadenopathy or thyromegaly. LUNGS: Bilateral wheezes. HEART: Regular rate and rhythm without rubs, murmurs, or gallops. ABDOMEN: Soft and nontender. Bowel sounds were active. EXTREMITIES: No clubbing, cyanosis. She has 2+ peripheral edema. NEUROLOGIC: She is alert and oriented x4. Cranial nerves, except where she has blindness, intact. LABORATORY AND ANCILLARY DATA: CBC within normal limits. Chemistry, BUN 25, creatinine 1.4, glucose 271. ProBNP 252. Lactic acid 1.9. Troponin 0. Chest x-ray, bibasilar atelectasis versus mild infiltrates. COVID-19 rapid test positive PCR. EKG, normal sinus rhythm, no signs of ischemia. ASSESSMENT: 1. Covid 19 Pneumonia. 2. Borderline Hypoxemia. 3. Type 2 diabetes mellitus. 4. Diastolic heart failure. 5. Status post pacemaker. 6. Severe diabetic neuropathy. 7. Diabetic nephropathy. 8. Chronic kidney disease stage 3. 9. Advanced diabetic retinopathy with blindness. 10. Hypertensive cardiovascular disease. 11. Noncompliance with medications. PLAN: 1. Droplet isolation. 2. Continue home medications. 3. Diurese. 4. Pulmonary and ID consults. 5. Start Remdesevir if qualifies, otherwise per ID Ivermectin. Abbey Lozano M.D. DR: RADHA JOB#: [id number] CC: SANDY
[2020-08-02] MEDS: NovoLOG Insulin Flexpen SUBQ SCH ×3 (17:01→21:00)
--- NOTE | 2020-08-02 18:30 | NUR ---
NURSE HAND-OFF REPORT: Important Events on Shift:admission Patient Status: AO x 4 Diet: cardiac Pending Orders: Pending Results/Labs: Pending MD notification: Latest Vital Signs: Temperature 99.0 , Pulse 74 , B/P 136 /54 , Respiratory Rate 20 , O2 SAT 92 , Room Air, O2 Flow Rate . Vital Sign Comment: EKG Rhythm: SR with 1st deg HB Rhythm change?: Aydee WHITLOCK Notified?: Aydee Lozano MD Response: no new orders Latest Cates Fall Score: 20 Fall Risk: Low Risk Safety Measures: Call light Within Reach, Bed Alarm Zone 2, Side Rails Side Rails x2, Bed position Low and Locked. Fall Precautions: Patient Fall Education .
[2020-08-02 20:00] VITALS: BP 126/94
--- NOTE | 2020-08-02 20:28 | NUR ---
NURSE NOTES: Received patient report from ANAHY Davis. Patient is AO x4. Patient shows no signs of distress or pain at the time. Patient is on room air and shows no signs of respiratory distress. IV site is patent and flushed. There are no signs of erythema, infiltration, or bleeding. Bed is in the lowest position, call light is within reach, side rails up x3. Will continue to monitor.
[2020-08-02] MEDS: Heparin 5000 units/ml inj SUBQ SCH (21:18)
[2020-08-03] VITALS: BP 119/89
[2020-08-03 04:00] VITALS: BP 120/82
[2020-08-03] MEDS: NovoLOG Insulin Flexpen SUBQ SCH ×8 (06:24→21:59)
--- NOTE | 2020-08-03 07:17 | NUR ---
NURSE HAND-OFF REPORT: Important Events on Shift:[NA] Patient Status: [Full code] Diet: [Cardiac Diet] Pending Orders: [NA] Pending Results/Labs:[NA] Pending MD notification:[NA] Latest Vital Signs: Temperature 99.0 , Pulse 71 , B/P 120 /82 , Respiratory Rate 24 , O2 SAT 96 , Room Air, O2 Flow Rate . Vital Sign Comment: [NA] EKG Rhythm: SR 1 degree AVB Rhythm change?: Y Notified?: N -Dr Blake WHITLOCK Response: Message left await call Latest Cates Fall Score: 20 Fall Risk: Low Risk Safety Measures: Call light Within Reach, Bed Alarm Zone 2, Side Rails Side Rails x3, Bed position Low and Locked. Fall Precautions: Yellow Socks Yellow Gown Patient Fall Education Report given to [Susan, RN].
[2020-08-03 07:38] LABS: BASOPHILS % (AUTO) 0.5 % (0.0-2.0); EOSINOPHILS % (AUTO) 1.2 % (0.0-3.0); HEMATOCRIT 42.6 % (37.0-47.0); HEMOGLOBIN 12.7 G/DL (12.0-16.0); LYMPHOCYTES % (AUTO) 16.9 % (20.0-45.0); MEAN CORPUSCULAR VOLUME 75 FL (80-99); MONOCYTES % (AUTO) 10.5 % (1.0-10.0); PLATELET COUNT 284 K/UL (150-450); RED BLOOD COUNT 5.68 M/UL (4.20-5.40); RED CELL DISTRIBUTION WIDTH 11.5 % (11.6-14.8); WHITE BLOOD COUNT 6.1 K/UL (4.8-10.8)
[2020-08-03 07:51] LABS: CALCIUM 9.5 MG/DL (8.5-10.1); CREATININE 1.1 MG/DL (0.55-1.30)
[2020-08-03 08:00] VITALS: BP_SYST 128; BP_SYST 132; BP_DIAS 73; BP_DIAS 79
--- NOTE | 2020-08-03 08:04 | NUR ---
NURSE NOTES: Received patient in bed awake. No SOB or acute distress. Patient requesting for cough syrup, will inform MD. IV line intact. Purewick intact. HOB elevated. Bed locked in low position. Call light within reach. Will continue plan of care.
--- NOTE | 2020-08-03 08:25 | Consultation ---
Consult Note Consult Note 85-year-old female with multiple medical problems. +increasing shortness of breath during the last 2 weeks. + COVID-19 pneumonia. Currently comfortable care noted and discussed PAST MEDICAL HISTORY: 1. Type 2 diabetes mellitus. 2. Diastolic heart failure. 3. Status post pacemaker. 4. Severe diabetic neuropathy. 5. Diabetic nephropathy. 6. Chronic kidney disease stage 3. 7. Advanced diabetic retinopathy with blindness. 8. Hypertensive cardiovascular disease. 9. Noncompliance with medications. ALLERGIES and MEDS: reviewed and reconciled FAMILY HISTORY: not available SOCIAL HISTORY: lives at home; nonsmoker or drinker REVIEW OF SYSTEMS: reviewed PHYSICAL EXAMINATION: deferred due to COVID+ Laboratory Tests Test 08/02/20 11:00 08/02/20 16:18 08/02/20 21:04 08/03/20 05:58 White Blood Count 5.8 K/UL (4.8-10.8) Red Blood Count 5.88 M/UL (4.20-5.40) H Hemoglobin 13.2 G/DL (12.0-16.0) Hematocrit 43.8 % (37.0-47.0) Mean Corpuscular Volume 75 FL (80-99) L Mean Corpuscular Hemoglobin 22.5 PG (27.0-31.0) L Mean Corpuscular Hemoglobin Concent 30.2 G/DL (32.0-36.0) L Red Cell Distribution Width 11.7 % (11.6-14.8) Platelet Count 290 K/UL (150-450) Mean Platelet Volume 6.2 FL (6.5-10.1) L Neutrophils (%) (Auto) 72.3 % (45.0-75.0) Lymphocytes (%) (Auto) 15.2 % (20.0-45.0) L Monocytes (%) (Auto) 10.5 % (1.0-10.0) H Eosinophils (%) (Auto) 1.3 % (0.0-3.0) Basophils (%) (Auto) 0.7 % (0.0-2.0) Sodium Level 142 MMOL/L (136-145) Potassium Level 4.7 MMOL/L (3.5-5.1) Chloride Level 105 MMOL/L (98-107) Carbon Dioxide Level 26 MMOL/L (21-32) Anion Gap 12 mmol/L (5-15) Blood Urea Nitrogen 25 mg/dL (7-18) H Creatinine 1.4 MG/DL (0.55-1.30) H Estimat Glomerular Filtration Rate 43.0 mL/min (>60) Glucose Level 271 MG/DL (74-106) H Lactic Acid Level 1.90 mmol/L (0.4-2.0) Calcium Level 9.8 MG/DL (8.5-10.1) Total Bilirubin 0.5 MG/DL (0.2-1.0) Aspartate Amino Transf (AST/SGOT) 38 U/L (15-37) H Alanine Aminotransferase (ALT/SGPT) 28 U/L (12-78) Alkaline Phosphatase 79 U/L (46-116) Troponin I 0.000 ng/mL (0.000-0.056) Pro-B-Type Natriuretic Peptide 252 pg/mL (0-125) H Total Protein 7.8 G/DL (6.4-8.2) Albumin 2.6 G/DL (3.4-5.0) L Globulin 5.2 g/dL Albumin/Globulin Ratio 0.5 (1.0-2.7) L POC Whole Blood Glucose 251 MG/DL (74-106) H 110 MG/DL (74-106) H 151 MG/DL (74-106) H Test 08/03/20 06:40 White Blood Count 6.1 K/UL (4.8-10.8) Red Blood Count 5.68 M/UL (4.20-5.40) H Hemoglobin 12.7 G/DL (12.0-16.0) Hematocrit 42.6 % (37.0-47.0) Mean Corpuscular Volume 75 FL (80-99) L Mean Corpuscular Hemoglobin 22.3 PG (27.0-31.0) L Mean Corpuscular Hemoglobin Concent 29.8 G/DL (32.0-36.0) L Red Cell Distribution Width 11.5 % (11.6-14.8) L Platelet Count 284 K/UL (150-450) Mean Platelet Volume 5.9 FL (6.5-10.1) L Neutrophils (%) (Auto) 71.0 % (45.0-75.0) Lymphocytes (%) (Auto) 16.9 % (20.0-45.0) L Monocytes (%) (Auto) 10.5 % (1.0-10.0) H Eosinophils (%) (Auto) 1.2 % (0.0-3.0) Basophils (%) (Auto) 0.5 % (0.0-2.0) Sodium Level 140 MMOL/L (136-145) Potassium Level 4.0 MMOL/L (3.5-5.1) Chloride Level 106 MMOL/L (98-107) Carbon Dioxide Level 23 MMOL/L (21-32) Anion Gap 11 mmol/L (5-15) Blood Urea Nitrogen 26 mg/dL (7-18) H Creatinine 1.1 MG/DL (0.55-1.30) Estimat Glomerular Filtration Rate 57.0 mL/min (>60) Glucose Level 142 MG/DL (74-106) #H Calcium Level 9.5 MG/DL (8.5-10.1) Magnesium Level 1.6 MG/DL (1.8-2.4) L ASSESSMENT: 1. CHF, compensated 2.+ COVID-19. pneumonia 3. Type 2 diabetes mellitus. 4. no significant hypoxemia 5. Status post pacemaker. 6. Chronic kidney disease stage 3. 7. Hypertension PLAN ID to see pulmonary santos stable DVT prophylaxis inhalers prn oxygen prn monitor imaging for change impression, plan, and exam edited and reviewed in detail care discussed with Rocael Aviles MD Aug 03, 2020 08:24
[2020-08-03] MEDS: Carvedilol 12.5mg tab ORAL SCH (09:03)
[2020-08-03] MEDS: Aspirin EC 81mg tab ORAL SCH (09:03)
[2020-08-03] MEDS: Heparin 5000 units/ml inj SUBQ SCH ×2 (09:05→21:54)
--- NOTE | 2020-08-03 11:07 | General Progress Note ---
Subjective Allergies: Coded Allergies: AZITHROMYCIN (Verified Allergy, Intermediate, ITCHINESS, 10/15/13) QUESTIONABLE ALLERGIC RXN BUT PT STARTED ITCHING AFTER BEING GIVEN A DOSE BUT PT NOT SURE Subjective No new c/o Objective Last 24 Hour Vital Signs Date Time Temp Pulse Resp B/P (MAP) Pulse Ox O2 Delivery O2 Flow Rate FiO2 08/03/20 09:03 86 128/79 08/03/20 09:00 72 08/03/20 09:00 Room Air 08/03/20 08:00 98.8 86 22 128/79 (95) 97 08/03/20 04:00 99.0 80 24 120/82 (95) 96 08/03/20 04:00 71 08/03/20 00:00 69 08/03/20 00:00 97.8 69 23 119/89 (99) 97 08/03/20 00:00 61 08/02/20 21:00 Room Air 08/02/20 20:00 98.4 77 24 126/94 (105) 94 08/02/20 16:17 Room Air 08/02/20 16:00 74 08/02/20 15:41 99.0 74 20 136/54 (81) 92 08/02/20 14:24 98.1 95 24 121/82 96 Room Air Intake and Output 08/02/20 08/03/20 19:00 07:00 Intake Total 240 ml 160 ml Balance 240 ml 160 ml Intake Oral 240 ml Other 160 ml # Voids 1 2 # Bowel Movements 1 Laboratory Tests 08/02/20 16:18: POC Whole Blood Glucose 251H 08/02/20 21:04: POC Whole Blood Glucose 110H 08/03/20 05:58: POC Whole Blood Glucose 151H 08/03/20 06:40: White Blood Count 6.1, Red Blood Count 5.68H, Hemoglobin 12.7, Hematocrit 42.6, Mean Corpuscular Volume 75L, Mean Corpuscular Hemoglobin 22.3L, Mean Corpuscular Hemoglobin Concent 29.8L, Red Cell Distribution Width 11.5L, Platelet Count 284, Mean Platelet Volume 5.9L, Neutrophils (%) (Auto) 71.0, Lymphocytes (%) (Auto) 16.9L, Monocytes (%) (Auto) 10.5H, Eosinophils (%) (Auto) 1.2, Basophils (%) (Auto) 0.5, Sodium Level 140, Potassium Level 4.0, Chloride Level 106, Carbon Dioxide Level 23, Anion Gap 11, Blood Urea Nitrogen 26H, Creatinine 1.1, Estimat Glomerular Filtration Rate 57.0, Glucose Level 142#H, Calcium Level 9.5, Magnesium Level 1.6L Height (Feet): 5 Height (Inches): 4.00 Weight (Pounds): 258 Objective Morbidly obese. Looks lethargic!! CV RR Lungs B wheezes Abs SNT BS+ E NO CCE Assessment/Plan Assessment/Plan: Covid 19 pneumonia will need Remdesevir. Check ABGs DW Abbey Apodaca MD Aug 03, 2020 11:07
--- NOTE | 2020-08-03 11:44 | Consultation ---
DATE OF CONSULTATION: 08/03/2020 INFECTIOUS DISEASE CONSULTATION CONSULTING PHYSICIAN: Nahomi Garcia MD. REFERRING PHYSICIAN: Abbey Lozano MD. REASON FOR CONSULTATION: COVID-19 pneumonia. HISTORY OF PRESENTING ILLNESS: This is an 85-year-old lady with history of diabetes, hypertension, status post pacemaker placement, diabetic nephropathy, chronic kidney disease, and hypertension, who comes into the emergency room with cough and shortness of breath. She was found to have COVID-19 pneumonia and an Infectious Diseases consultation has been obtained for antibiotics. PAST MEDICAL HISTORY: 1. History of diabetes. 2. History of hypertension. 3. History of chronic kidney disease. 4. Status post pacemaker placement. 5. Diabetic neuropathy. 6. Diabetic nephropathy. 7. Diabetic retinopathy. SOCIAL HISTORY: She does not smoke, drink, or use drugs. FAMILY HISTORY: Noncontributory. REVIEW OF SYSTEMS: RESPIRATORY: No fever or chills. She does have a cough. She has shortness of breath. No chest pain. CARDIAC: No chest pain. No palpitation. No dizziness. No syncope. GASTROINTESTINAL: No nausea. No vomiting. No abdominal pain or diarrhea. MEDICATIONS: As an inpatient, she is on Lasix, Coreg, aspirin, albuterol and ipratropium, subcutaneous heparin, insulin. ALLERGIES: To azithromycin noted. PHYSICAL EXAMINATION: VITAL SIGNS: Temperature 98.8, T-max of 99, pulse of 86, respiratory rate 22, blood pressure 128/79. O2 saturation of 97% on room air. Examination deferred due to COVID-19. LABORATORY AND DIAGNOSTIC DATA: White count 6.1, hemoglobin 12.7, hematocrit 42.6, MCV 75, platelet count of 284,000, neutrophils of 71%. Sodium 140, potassium 4, chloride 106, bicarb 23, BUN 26, creatinine 1.1. Glucose 142. Calcium 9.5. COVID-19 test is positive. Chest x-ray is showing bibasilar atelectasis versus mild infiltrate. ASSESSMENT: This is an 85-year-old lady with history of diabetes, hypertension, diabetic nephropathy, diabetic retinopathy as well as diabetic neuropathy, who comes in with cough and shortness of breath and is found to have, 1. COVID-19 pneumonia on room air with 91% saturation. 2. Diabetes. 3. Hypertension. 4. Status post pacemaker placement. PLAN: 1. start remdesivir discussed benefits over risks of remdesivir use and she consented to it 2. start dexamethasone. 3. Continue isolation. I would like to thank Dr. Lozano for this consultation. Jayeshkuntala Sendy Garcia DR: FLAVIO JOB#: [id number] CC: SANDY
[2020-08-03 12:00] VITALS: BP 132/84
--- NOTE | 2020-08-03 12:54 | NUR ---
NURSE NOTES: RN read Remdezivir facts sheet to patient, obtained verbal consent together with Charge Nurse Vaughn to start Remdezivir. Pharmacist Sandra made aware and said she will inform Dr Garcia of the consent obtained.
[2020-08-03] MEDS ORDERED: Remdesivir Fact Sheet MISC SCH (13:30)
[2020-08-03] MEDS ORDERED: Loading Dose:Remdesivir 200mg/NS 210ml IV SCH ×2 (14:00)
[2020-08-03] MEDS ORDERED: SIMBRINZA 1%-0.28 ML LEFT EYE (14:44)
--- NOTE | 2020-08-03 15:36 | NUR ---
CASE MANAGEMENT:REVIEW FROM HOME TO ER CC: SOB, COUGH AND FATIGUE PMH: PACEMAKER SI: CHF. PULMONARY EDEMA 98.0 86 25 119/67 91% ON RA BUN+25 CR+1.4 IS: IV ZOSYN IV LASIX CXR BLOOD CX : TO TELEMETRY 08/03/20 SI: COVID 19 CHF. PULMONARY EDEMA 98.7 82 20 132/84 97% ON RA IS: IV REMDESIVIR Q24 (11/20) DECADRON PO QD IV LASIX QD COREG PO QD ASA PO QD DUONEB HHN Q6HRS HEPARIN SQ Q12 : TELEMETRY STATUS DCP: FROM HOME
--- NOTE | 2020-08-03 15:47 | NUR ---
NURSE NOTES: RN did not administer Ivermectin as per pharmacist Radha. Remdezivir administered instead. Pharmacist Sandra preciously instructed RN not to give Ivermectin if Remdezivir is going to be given.
[2020-08-03 16:00] VITALS: BP 137/81
--- NOTE | 2020-08-03 18:50 | NUR ---
NURSE HAND-OFF REPORT: Important Events on Shift:remdezivir started Patient Status: stable Diet: cardiac Pending Orders: venous duplex Pending Results/Labs: Pending MD notification: Latest Vital Signs: Temperature 98.5 , Pulse 60 , B/P 137 /81 , Respiratory Rate 20 , O2 SAT 98 , Room Air, O2 Flow Rate . Vital Sign Comment: EKG Rhythm: A-Paced Rhythm change?: Y Notified?: N MD Response: Latest Cates Fall Score: 20 Fall Risk: Low Risk Safety Measures: Call light Within Reach, Bed Alarm Zone 2, Side Rails Side Rails x3, Bed position Low and Locked. Fall Precautions: Yellow Socks Yellow Gown Patient Fall Education . Addendum: 08/03/20 at 7 by Susan Mc RN HAND-OFF: Report given to Tawnya HIGGINBOTHAM.
--- NOTE | 2020-08-03 18:51 | NUR ---
NURSE NOTES: Received hand-off report from ANAHY Davis. Patient received laying in high-fowlers, resting, IV on right antecubital intact, no redness, no leaking, no swelling, no pain/tenderness noted. tinner helper in place, breathing unlabored and even, patient in stable condition and not in any distress, alert and oriented times four (baseline). Helped to use the bedside commode with extensive assist by two staff members. No incidents noted. Bed in lowest and locked position, bed alarm on, call light within reach, side rails upx3. Will transfer to bed 212-1.
[2020-08-03 20:00] VITALS: BP 147/80
[2020-08-04] VITALS: BP 150/69
[2020-08-04 04:00] VITALS: BP 159/62
[2020-08-04] MEDS: NovoLOG Insulin Flexpen SUBQ SCH ×6 (07:04→21:36)
--- NOTE | 2020-08-04 07:05 | NUR ---
NURSE HAND-OFF REPORT: Important Events on Shift: Venous duplex still need to be done; Pro Bnatriuretic peptide is 252 Patient Status: full code, stable condition Diet: cardiac Pending Orders: Pending Results/Labs: Pending MD notification: Latest Vital Signs: Temperature 98.8 , Pulse 69 , B/P 159 /62 , Respiratory Rate 19 , O2 SAT 98 , Room Air, O2 Flow Rate . Vital Sign Comment: EKG Rhythm: SR w 1st-degree AVB Rhythm change?: Y Notified?: N -Dr Blake WHITLOCK Response: Message left await call Latest Cates Fall Score: 25 Fall Risk: Medium Risk Safety Measures: Call light Within Reach, Bed Alarm Zone 2, Side Rails Side Rails x3, Bed position Low and Locked. Fall Precautions: Yellow Socks Yellow Gown Door Sign Patient Fall Education Report given to ANAHY Davis.
[2020-08-04 08:00] VITALS: BP 155/70
[2020-08-04] MEDS: Carvedilol 12.5mg tab ORAL SCH (09:07)
[2020-08-04] MEDS: Aspirin EC 81mg tab ORAL SCH (09:08)
[2020-08-04] MEDS: Heparin 5000 units/ml inj SUBQ SCH ×2 (09:09→21:31)
[2020-08-04 09:25] LABS: BASOPHILS % (AUTO) 1.3 % (0.0-2.0); EOSINOPHILS % (AUTO) 1.9 % (0.0-3.0); HEMOGLOBIN 12.3 G/DL (12.0-16.0); LYMPHOCYTES % (AUTO) 22.3 % (20.0-45.0); MEAN CORPUSCULAR VOLUME 75 FL (80-99); NEUTROPHILS % (AUTO) 63.5 % (45.0-75.0); PLATELET COUNT 281 K/UL (150-450); RED BLOOD COUNT 5.48 M/UL (4.20-5.40); RED CELL DISTRIBUTION WIDTH 11.4 % (11.6-14.8); WHITE BLOOD COUNT 5.1 K/UL (4.8-10.8)
[2020-08-04 09:46] LABS: ALBUMIN 2.6 G/DL (3.4-5.0); ALBUMIN/GLOBULIN RATIO 0.6 (1.0-2.7); BILIRUBIN,TOTAL 0.3 MG/DL (0.2-1.0); CALCIUM 9.2 MG/DL (8.5-10.1); CREATININE 1.1 MG/DL (0.55-1.30)
--- NOTE | 2020-08-04 10:46 | Pulmonology Progress Note ---
Subjective ROS Limited/Unobtainable: No Allergies: Coded Allergies: AZITHROMYCIN (Verified Allergy, Intermediate, ITCHINESS, 10/15/13) QUESTIONABLE ALLERGIC RXN BUT PT STARTED ITCHING AFTER BEING GIVEN A DOSE BUT PT NOT SURE Objective Last 24 Hour Vital Signs Date Time Temp Pulse Resp B/P (MAP) Pulse Ox O2 Delivery O2 Flow Rate FiO2 08/04/20 09:07 64 155/70 08/04/20 09:00 Room Air 08/04/20 08:00 98.9 64 20 155/70 (98) 97 08/04/20 04:00 70 08/04/20 04:00 98.8 69 19 159/62 (94) 98 08/04/20 00:00 98.5 75 20 150/69 (96) 97 08/04/20 00:00 66 08/03/20 21:00 Room Air 08/03/20 20:00 99.3 81 20 147/80 (102) 98 08/03/20 20:00 81 08/03/20 16:00 98.5 86 20 137/81 (99) 98 08/03/20 16:00 60 08/03/20 12:00 68 08/03/20 12:00 98.7 82 20 132/84 (100) 97 Intake and Output 08/03/20 08/04/20 19:00 07:00 Intake Total 800 ml Balance 800 ml Intake Oral 800 ml # Voids 3 Microbiology Date/Time Source Procedure Growth Status 08/02/20 11:30 Nasopharynx SARS-CoV-2 RdRp Gene Assay - Final Complete Laboratory Tests 08/03/20 11:21: Arterial Blood pH 7.445, Arterial Blood Partial Pressure CO2 40.1, Arterial Blood Partial Pressure O2 66.5L, Arterial Blood HCO3 26.9H, Arterial Blood Oxyge n Saturation 93.4L, Arterial Blood Base Excess 2.7H, Baljit Test Positive 08/03/20 11:50: POC Whole Blood Glucose [Pending] 08/03/20 16:25: POC Whole Blood Glucose [Pending] 08/03/20 18:29: POC Whole Blood Glucose [Pending] 08/03/20 21:51: POC Whole Blood Glucose 155H 08/04/20 06:22: POC Whole Blood Glucose 190H 08/04/20 08:25: White Blood Count 5.1, Red Blood Count 5.48H, Hemoglobin 12.3, Hematocrit 41.0, Mean Corpuscular Volume 75L, Mean Corpuscular Hemoglobin 22.5L, Mean Corpuscular Hemoglobin Concent 30.1L, Red Cell Distribution Width 11.4L, Platelet Count 281, Mean Platelet Volume 6.0L, Neutrophils (%) (Auto) 63.5, Lymphocytes (%) (Auto) 22.3, Monocytes (%) (Auto) 11.0H, Eosinophils (%) (Auto) 1.9, Basophils (%) (Auto) 1.3, Sodium Level 145, Potassium Level 4.0, Chloride Level 108H, Carbon Dioxide Level 28, Anion Gap 9, Blood Urea Nitrogen 23H, Creatinine 1.1, Estimat Glomerular Filtration Rate 57.0, Glucose Level 173H, Calcium Level 9.2, Magnesium Level 1.7L, Total Bilirubin 0.3, Direct Bilirubin 0.2, Aspartate Amino Transf (AST/SGOT) 24, Alanine Aminotransferase (ALT/SGPT) 23, Alkaline Phosphatase 69, Total Protein 6.7, Albumin 2.6L, Globulin 4.1, Albumin/Globulin Ratio 0.6L Current Medications Medications (Trade) Dose Ordered Sig/Haider Route PRN Reason Start Time Stop Time Status Last Admin Dose Admin Albuterol/ Ipratropium (Combivent Respimat) 1 puff Q6HR INH 08/03/20 00:00 09/02/20 00:00 08/04/20 07:00 Aspirin (Ecotrin) 81 mg DAILY ORAL 08/03/20 09:00 09/17/20 08:59 08/04/20 09:08 Carvedilol (Coreg) 12.5 mg DAILY ORAL 08/03/20 09:00 09/02/20 08:59 08/04/20 09:07 Dexamethasone (Decadron) 6 mg DAILY ORAL 08/04/20 13:30 08/13/20 09:01 Dextrose (Dextrose 50%) 25 ml Q30M PRN IV Hypoglycemia 08/02/20 16:00 10/31/20 15:59 Dextrose (Dextrose 50%) 50 ml Q30M PRN IV Hypoglycemia 08/02/20 16:00 10/31/20 15:59 Furosemide (Lasix) 20 mg DAILY IV 08/03/20 09:00 08/07/20 22:00 08/04/20 09:08 Heparin Sodium (Porcine) (Heparin 5000 units/ml) 5,000 units EVERY 12 HOURS SUBQ 08/02/20 21:00 09/16/20 20:59 08/04/20 09:09 Insulin Aspart (NovoLOG) BEFORE MEALS AND HS SUBQ 08/02/20 16:30 10/31/20 16:29 08/04/20 07:04 Insulin Aspart (NovoLOG) 12 units THREE TIMES A DAY SUBQ 08/02/20 18:00 10/31/20 17:59 08/03/20 21:53 Remdesivir 100 mg/ Sodium Chloride 250 ml @ 250 mls/hr Q24H IV 08/04/20 14:00 08/07/20 14:59 Assessment/Plan Assessment/Plan Pulmonary Progress Note Patient is an 85-year-old woman with multiple medical problems including DM, HT N, CKD admitted with increasing shortness of breath for 2 weeks. + COVID-19 pneumonia. Currently comfortable care noted and discussed PAST MEDICAL HISTORY: 1. Type 2 diabetes mellitus. 2. Diastolic heart failure. 3. Status post pacemaker. 4. Severe diabetic neuropathy. 5. Diabetic nephropathy. 6. Chronic kidney disease stage 3. 7. Advanced diabetic retinopathy with blindness. 8. Hypertensive cardiovascular disease. 9. Noncompliance with medications. PHYSICAL EXAMINATION: Vital signs noted deferred due to COVID+ Laboratory Tests noted ASSESSMENT: 1. CHF, compensated 2.+ COVID-19. pneumonia 3. Type 2 diabetes mellitus. 4. no significant hypoxemia 5. Status post pacemaker. 6. Chronic kidney disease stage 3. 7. Hypertension PLAN ID following stable pulmonary status DVT prophylaxis inhalers prn oxygen prn monitor imaging for change impression, plan, and exam edited and reviewed in detail care discussed with Darci Padilla MD Aug 04, 2020 10:46
[2020-08-04 12:00] VITALS: BP 150/64
[2020-08-04] MEDS: Maintenance Dose:Remdesivir 100mg/NS 230ml x 4 Doses IV SCH ×2 (14:09)
[2020-08-04] MEDS ORDERED: Tubing IV Secondary IV ONE (14:15)
[2020-08-04] MEDS ORDERED: NS 275ml ONE (14:15)
[2020-08-04 16:00] VITALS: BP 148/72
--- NOTE | 2020-08-04 18:20 | NUR ---
NURSE HAND-OFF REPORT: Important Events on Shift:low magnesium, 2 bags magnesium given Patient Status: alert, confused Diet: cardiac Pending Orders: venous duplex Pending Results/Labs: Pending MD notification: Latest Vital Signs: Temperature 98.8 , Pulse 60 , B/P 148 /72 , Respiratory Rate 20 , O2 SAT 97 , Room Air, O2 Flow Rate . Vital Sign Comment: EKG Rhythm: A-Paced Rhythm change?: N MD Notified?: Y - Dr Bear WHITLOCK Response:no new orders Latest Cates Fall Score: 25 Fall Risk: Medium Risk Safety Measures: Call light Within Reach, Bed Alarm Zone 2, Side Rails Side Rails x3, Bed position Low and Locked. Fall Precautions: Yellow Socks Yellow Gown Door Sign Patient Fall Education Addendum: 08/04/20 at 1919 by Susan Mc RN HAND-OFF: Report given to Tawnya HIGGINBOTHAM.
--- NOTE | 2020-08-04 18:21 | NUR ---
NURSE NOTES: Received hand-off report from ANAHY Davis. Patient received laying in semi-fowlers, resting, 22gIV on right antecubital intact and left forearm 22g IV both displays no redness, no leaking, no swelling, no pain/tenderness noted. security monitor in place, breathing unlabored and even, patient in stable condition and not in any distress, alert and oriented times four (baseline). Bed in lowest and locked position, bed alarm on, call light within reach, side rails upx3.
--- NOTE | 2020-08-04 18:37 | General Progress Note ---
Subjective Allergies: Coded Allergies: AZITHROMYCIN (Verified Allergy, Intermediate, ITCHINESS, 10/15/13) QUESTIONABLE ALLERGIC RXN BUT PT STARTED ITCHING AFTER BEING GIVEN A DOSE BUT PT NOT SURE Subjective She is coughing alot Objective Last 24 Hour Vital Signs Date Time Temp Pulse Resp B/P (MAP) Pulse Ox O2 Delivery O2 Flow Rate FiO2 08/04/20 16:00 60 08/04/20 16:00 98.8 62 20 148/72 (97) 97 08/04/20 12:00 98.6 63 18 150/64 (92) 98 08/04/20 12:00 61 08/04/20 09:07 64 155/70 08/04/20 09:00 Room Air 08/04/20 08:00 62 08/04/20 08:00 98.9 64 20 155/70 (98) 97 08/04/20 04:00 70 08/04/20 04:00 98.8 69 19 159/62 (94) 98 08/04/20 00:00 98.5 75 20 150/69 (96) 97 08/04/20 00:00 66 08/03/20 21:00 Room Air 08/03/20 20:00 99.3 81 20 147/80 (102) 98 08/03/20 20:00 81 Intake and Output 08/03/20 08/04/20 19:00 07:00 Intake Total 800 ml Balance 800 ml Intake Oral 800 ml # Voids 3 Laboratory Tests 08/03/20 21:51: POC Whole Blood Glucose 155H 08/04/20 06:22: POC Whole Blood Glucose 190H 08/04/20 08:25: White Blood Count 5.1, Red Blood Count 5.48H, Hemoglobin 12.3, Hematocrit 41.0, Mean Corpuscular Volume 75L, Mean Corpuscular Hemoglobin 22.5L, Mean Corpuscular Hemoglobin Concent 30.1L, Red Cell Distribution Width 11.4L, Platelet Count 281, Mean Platelet Volume 6.0L, Neutrophils (%) (Auto) 63.5, Lymphocytes (%) (Auto) 22.3, Monocytes (%) (Auto) 11.0H, Eosinophils (%) (Auto) 1.9, Basophils (%) (Auto) 1.3, Sodium Level 145, Potassium Level 4.0, Chloride Level 108H, Carbon Dioxide Level 28, Anion Gap 9, Blood Urea Nitrogen 23H, Creatinine 1.1, Estimat Glomerular Filtration Rate 57.0, Glucose Level 173H, Calcium Level 9.2, Magnesium Level 1.7L, Total Bilirubin 0.3, Direct Bilirubin 0.2, Aspartate Amino Transf (AST/SGOT) 24, Alanine Aminotransferase (ALT/SGPT) 23, Alkaline Phosph atase 69, Total Protein 6.7, Albumin 2.6L, Globulin 4.1, Albumin/Globulin Ratio 0.6L 08/04/20 11:49: POC Whole Blood Glucose 147H 08/04/20 17:54: POC Whole Blood Glucose [Pending] Height (Feet): 5 Height (Inches): 4.00 Weight (Pounds): 258 General Appearance: WD/WN, no apparent distress, alert EENT: PERRL/EOMI Neck: normal alignment Cardiovascular: regular rhythm Respiratory/Chest: crackles/rales, rhonchi - bilaterally Abdomen: soft Extremities: non-tender 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
--- NOTE | 2020-08-04 20:30 | NUR ---
NURSE NOTES: AMINA Whitney reported that patient refused to have blood pressure taken. She repeatedly took off the blood pressure cuff while it was trying to obtain a reading. ANAHY Bowling attempted to obtain blood pressure but refused as well despite education for the use of blood pressure readings. Educated regarding the untoward effects of out of range blood pressures and patient refused anyway. Will try again later. Addendum: 08/04/20 at 2203 by Tawnya Renteria RN Patient in stable condition. Alert and oriented to baseline.
[2020-08-05] VITALS: BP 150/73
[2020-08-05 04:00] VITALS: BP 154/93
[2020-08-05] MEDS: NovoLOG Insulin Flexpen SUBQ SCH ×8 (06:34→21:40)
--- NOTE | 2020-08-05 07:25 | NUR ---
NURSE HAND-OFF REPORT: Important Events on Shift: Called and left a voicemail for Dr. Razo albumin 2.6. Awaiting call back and endorsed to ANAHY Martinez. Patient Status: full code, stable condition, alert and orientedx4. Diet: cardiac Pending Orders: Pending Results/Labs: Pending MD notification: Latest Vital Signs: Temperature 97.0 , Pulse 66 , B/P 154 /93 , Respiratory Rate 20 , O2 SAT 96 , Room Air, O2 Flow Rate . Vital Sign Comment: EKG Rhythm: SR w 1st-degree AVB Rhythm change?: Y MD Notified?: N -Dr Blake WHITLOCK Response: Message left await call Latest Cates Fall Score: 25 Fall Risk: Medium Risk Safety Measures: Call light Within Reach, Bed Alarm Zone 2, Side Rails Side Rails x3, Bed position Low and Locked. Fall Precautions: Yellow Socks Yellow Gown Door Sign Patient Fall Education Report given to ANAHY Martinez.
--- NOTE | 2020-08-05 07:51 | NUR ---
NURSE NOTES: Received pt report. Pt is awake and AOx4 with No SOB or acute distress. IV is c/d/. Purewick in place and suctioning. Aspiration precaution maintained and HOB elevated. Bed locked in low position. Call light within reach. Will continue plan of care.
[2020-08-05 08:00] VITALS: BP 164/76
[2020-08-05 09:00] LABS: BASOPHILS % (AUTO) 1.3 % (0.0-2.0); HEMATOCRIT 44.6 % (37.0-47.0); HEMOGLOBIN 13.3 G/DL (12.0-16.0); MEAN CORPUSCULAR VOLUME 75 FL (80-99); NEUTROPHILS % (AUTO) 82.8 % (45.0-75.0); PLATELET COUNT 316 K/UL (150-450); RED BLOOD COUNT 5.95 M/UL (4.20-5.40); RED CELL DISTRIBUTION WIDTH 11.7 % (11.6-14.8); WHITE BLOOD COUNT 6.5 K/UL (4.8-10.8)
--- NOTE | 2020-08-05 09:07 | General Progress Note ---
Subjective Constitutional: Reports: weakness HEENT: Reports: no symptoms Cardiovascular: Reports: no symptoms Respiratory: Reports: cough, SOB with excertion Gastrointestinal/Abdominal: Reports: no symptoms Genitourinary: Reports: no symptoms Neurologic/Psychiatric: Reports: no symptoms Endocrine: Reports: no symptoms Hematologic/Lymphatic: Reports: no symptoms Allergies: Coded Allergies: AZITHROMYCIN (Verified Allergy, Intermediate, ITCHINESS, 10/15/13) QUESTIONABLE ALLERGIC RXN BUT PT STARTED ITCHING AFTER BEING GIVEN A DOSE BUT PT NOT SURE Objective Last 24 Hour Vital Signs Date Time Temp Pulse Resp B/P (MAP) Pulse Ox O2 Delivery O2 Flow Rate FiO2 08/05/20 08:00 97.9 70 18 164/76 (105) 97 08/05/20 04:00 97.0 66 20 154/93 (113) 96 08/05/20 04:00 66 08/05/20 00:00 63 08/05/20 00:00 97.6 63 20 150/73 (98) 98 08/04/20 21:00 Room Air 08/04/20 20:00 66 08/04/20 20:00 97.8 66 18 98 08/04/20 16:00 60 08/04/20 16:00 98.8 62 20 148/72 (97) 97 08/04/20 12:00 98.6 63 18 150/64 (92) 98 08/04/20 12:00 61 08/04/20 09:07 64 155/70 Intake and Output 08/04/20 08/05/20 19:00 07:00 Intake Total 360 ml 250 ml Output Total 450 ml Balance 360 ml -200 ml Intake Oral 360 ml 250 ml Output Urine Total 450 ml # Voids 4 2 Laboratory Tests 08/04/20 11:49: POC Whole Blood Glucose 147H 08/04/20 12:47: POC Whole Blood Glucose [Pending] 08/04/20 16:45: POC Whole Blood Glucose 128H 08/04/20 17:54: POC Whole Blood Glucose [Pending] 08/04/20 21:30: POC Whole Blood Glucose 197H 08/05/20 06:24: POC Whole Blood Glucose 239H 08/05/20 08:10: White Blood Count 6.5, Red Blood Count 5.95H, Hemoglobin 13.3, Hematocrit 44.6, Mean Corpuscular Volume 75L, Mean Corpuscular Hemoglobin 22.3L, Mean Corpuscular Hemoglobin Concent 29.8L, Red Cell Distribution Width 11.7, Platelet Count 316, Mean Platelet Volume 5.9L, Neutrophils (%) (Auto) 82.8H, Lymphocytes (%) (Auto) 11.0L, Monocytes (%) (Auto) 5.0, Eosinophils (%) (Auto) 0.0, Basophils (%) (Auto) 1.3, Sodium Level [Pending], Potassium Level [Pending], Chloride Level [Pending], Carbon Dioxide Level [Pending], Blood Urea Nitrogen [Pending], Creatinine [Pending], Estimat Glomerular Filtration Rate [Pending], Glucose Level [Pending], Calcium Level [Pending], Magnesium Level [Pending], Total Bilirubin [Pending], Direct Bilirubin [Pending], Aspartate Amino Transf (AST/SGOT) [Pending], Alanine Aminotransferase (ALT/SGPT) [Pending], Alkaline Phosphatase [Pending], Total Protein [Pending], Albumin [Pending], Globulin [Pending] Height (Feet): 5 Height (Inches): 4.00 Weight (Pounds): 258 General Appearance: alert, morbidly obese EENT: normal ENT inspection Neck: normal alignment Cardiovascular: regular rhythm Respiratory/Chest: rhonchi - bilaterally Abdomen: non tender, soft Edema: no edema noted Arm (L), no edema noted Arm (R), no edema noted Leg (L), no edema noted Leg (R), no edema noted Pedal (L), no edema noted Pedal (R), no edema noted 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 Assessment/Plan Problem List: (1) CHF (congestive heart failure) ICD Codes: I50.9 - Congestive heart failure SNOMED: 81518433 Qualifiers: Qualified Codes: I50.9 - Heart failure, unspecified (2) Asthma attack ICD Codes: J45.909 - Asthma attack SNOMED: 207774855 (3) Pacemaker ICD Codes: Z95.0 - Presence of cardiac pacemaker SNOMED: 506495935, 235327711 (4) HTN (hypertension) ICD Codes: I10 - Essential (primary) hypertension SNOMED: 96376614 (5) DM (diabetes mellitus), type 1 uncontrolled with peripheral vascular complication ICD Codes: E10.59 - DM (diabetes mellitus), type 1 uncontrolled with peripheral vascular complication SNOMED: 45543615 (6) Pneumonia due to COVID-19 virus ICD Codes: U07.1 - COVID-19; J12.89 - Other viral pneumonia SNOMED: 866122481, 700174299 Assessment/Plan: steroids, remdesivir, increase insulin, monitor cardiopulm status Yoni Kolb MD Aug 05, 2020 09:07
[2020-08-05 09:15] LABS: ALANINE AMINOTRANSFERASE 22 U/L (12-78); ALBUMIN 2.6 G/DL (3.4-5.0); ALBUMIN/GLOBULIN RATIO 0.5 (1.0-2.7); ALKALINE PHOSPHATASE 69 U/L (46-116); ANION GAP 6 mmol/L (5-15); ASPARTATE AMINO TRANSFERASE 19 U/L (15-37); BILIRUBIN,TOTAL 0.3 MG/DL (0.2-1.0); BLOOD UREA NITROGEN 23 mg/dL (7-18); CALCIUM 9.8 MG/DL (8.5-10.1); CARBON DIOXIDE 29 MMOL/L (21-32); CHLORIDE 106 MMOL/L (98-107); POTASSIUM 4.4 MMOL/L (3.5-5.1); SODIUM 141 MMOL/L (136-145)
[2020-08-05] MEDS: Heparin 5000 units/ml inj SUBQ SCH ×2 (10:11→21:38)
[2020-08-05] MEDS: Carvedilol 12.5mg tab ORAL SCH (10:11)
[2020-08-05] MEDS: Aspirin EC 81mg tab ORAL SCH (10:11)
[2020-08-05 12:00] VITALS: BP 145/59
[2020-08-05] MEDS: Maintenance Dose:Remdesivir 100mg/NS 230ml x 4 Doses IV SCH ×4 (12:21→14:05)
--- NOTE | 2020-08-05 15:43 | Infectious Diseases Prog Note ---
Assessment/Plan Assessment/Plan A; 1. COVID-19 pneumonia 2. Diabetes. 3. Hypertension. 4. Status post pacemaker placement. 5. Blindness 6. Hearing loss PLAN: 1. Continue remdesivir & dexamethasone. 2. Continue isolation. Subjective ROS Limited/Unobtainable: Yes Constitutional: Reports: no symptoms Respiratory: Reports: shortness of breath, dry cough Gastrointestinal/Abdominal: Reports: no symptoms Neurologic: Reports: other - decreased hearing Allergies: Coded Allergies: AZITHROMYCIN (Verified Allergy, Intermediate, ITCHINESS, 10/15/13) QUESTIONABLE ALLERGIC RXN BUT PT STARTED ITCHING AFTER BEING GIVEN A DOSE BUT PT NOT SURE Objective Last 24 Hour Vital Signs Date Time Temp Pulse Resp B/P (MAP) Pulse Ox O2 Delivery O2 Flow Rate FiO2 08/05/20 12:00 60 08/05/20 12:00 98.6 66 21 145/59 (87) 95 08/05/20 10:11 70 164/76 08/05/20 09:00 Room Air 08/05/20 08:00 97.9 70 18 164/76 (105) 97 08/05/20 04:00 97.0 66 20 154/93 (113) 96 08/05/20 04:00 66 08/05/20 00:00 63 08/05/20 00:00 97.6 63 20 150/73 (98) 98 08/04/20 21:00 Room Air 08/04/20 20:00 66 08/04/20 20:00 97.8 66 18 98 08/04/20 16:00 60 08/04/20 16:00 98.8 62 20 148/72 (97) 97 Height (Feet): 5 Height (Inches): 4.00 Weight (Pounds): 258 General Appearance: no acute distress HEENT: mucous membranes moist Respiratory/Chest: lungs clear Cardiovascular: normal rate Abdomen: soft, non tender Extremities: no edema Neurologic/Psychiatric: alert, responsive, other - blind Laboratory Tests Test 08/04/20 16:45 08/04/20 17:54 08/04/20 21:30 08/05/20 06:24 POC Whole Blood Glucose 128 MG/DL (74-106) H Pending 197 MG/DL (74-106) H 239 MG/DL (74-106) H Test 08/05/20 08:10 White Blood Count 6.5 K/UL (4.8-10.8) Red Blood Count 5.95 M/UL (4.20-5.40) H Hemoglobin 13.3 G/DL (12.0-16.0) Hematocrit 44.6 % (37.0-47.0) Mean Corpuscular Volume 75 FL (80-99) L Mean Corpuscular Hemoglobin 22.3 PG (27.0-31.0) L Mean Corpuscular Hemoglobin Concent 29.8 G/DL (32.0-36.0) L Red Cell Distribution Width 11.7 % (11.6-14.8) Platelet Count 316 K/UL (150-450) Mean Platelet Volume 5.9 FL (6.5-10.1) L Neutrophils (%) (Auto) 82.8 % (45.0-75.0) H Lymphocytes (%) (Auto) 11.0 % (20.0-45.0) L Monocytes (%) (Auto) 5.0 % (1.0-10.0) Eosinophils (%) (Auto) 0.0 % (0.0-3.0) Basophils (%) (Auto) 1.3 % (0.0-2.0) Sodium Level 141 MMOL/L (136-145) Potassium Level 4.4 MMOL/L (3.5-5.1) Chloride Level 106 MMOL/L (98-107) Carbon Dioxide Level 29 MMOL/L (21-32) Anion Gap 6 mmol/L (5-15) Blood Urea Nitrogen 23 mg/dL (7-18) H Creatinine 1.0 MG/DL (0.55-1.30) Estimat Glomerular Filtration Rate > 60 mL/min (>60) Glucose Level 239 MG/DL (74-106) H Calcium Level 9.8 MG/DL (8.5-10.1) Magnesium Level 2.1 MG/DL (1.8-2.4) Total Bilirubin 0.3 MG/DL (0.2-1.0) Direct Bilirubin 0.2 MG/DL (0.0-0.3) Aspartate Amino Transf (AST/SGOT) 19 U/L (15-37) Alanine Aminotransferase (ALT/SGPT) 22 U/L (12-78) Alkaline Phosphatase 69 U/L (46-116) Total Protein 7.6 G/DL (6.4-8.2) Albumin 2.6 G/DL (3.4-5.0) L Globulin 5.0 g/dL Albumin/Globulin Ratio 0.5 (1.0-2.7) L Current Medications Medications (Trade) Dose Ordered Sig/Haider Route PRN Reason Start Time Stop Time Status Last Admin Dose Admin Albuterol/ Ipratropium (Combivent Respimat) 1 puff Q6HR INH 08/03/20 00:00 09/02/20 00:00 08/05/20 12:12 Aspirin (Ecotrin) 81 mg DAILY ORAL 08/03/20 09:00 09/17/20 08:59 08/05/20 10:11 Carvedilol (Coreg) 12.5 mg DAILY ORAL 08/03/20 09:00 09/02/20 08:59 08/05/20 10:11 Dexamethasone (Decadron) 6 mg DAILY ORAL 08/04/20 13:30 08/13/20 09:01 08/05/20 10:11 Dextrose (Dextrose 50%) 25 ml Q30M PRN IV Hypoglycemia 08/02/20 16:00 10/31/20 15:59 Dextrose (Dextrose 50%) 50 ml Q30M PRN IV Hypoglycemia 08/02/20 16:00 10/31/20 15:59 Furosemide (Lasix) 20 mg DAILY IV 08/03/20 09:00 08/07/20 22:00 08/05/20 10:12 Heparin Sodium (Porcine) (Heparin 5000 units/ml) 5,000 units EVERY 12 HOURS SUBQ 08/02/20 21:00 09/16/20 20:59 08/05/20 10:11 Insulin Aspart (NovoLOG) BEFORE MEALS AND HS SUBQ 08/02/20 16:30 10/31/20 16:29 08/05/20 12:13 Insulin Aspart (NovoLOG) 6 units NOVOTIAC SUBQ 08/05/20 11:50 11/03/20 11:49 Insulin Detemir (Levemir) 28 units BEDTIME SUBQ 08/05/20 21:00 11/03/20 20:59 Losartan Potassium (Cozaar) 100 mg DAILY ORAL 08/06/20 09:00 09/05/20 08:59 Remdesivir 100 mg/ Sodium Chloride 250 ml @ 250 mls/hr Q24H IV 08/04/20 14:00 08/07/20 14:59 08/05/20 14:05 Gavino Sun MD Aug 05, 2020 15:43
[2020-08-05 16:00] VITALS: BP 147/67
--- NOTE | 2020-08-05 19:30 | NUR ---
NURSE NOTES: Recvied report from ANAHY Meléndez. Pt in bed awake, alert/oriented x4, able to make needs known. No resp distress noted. 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 No c/o pain. IV left FA saline locked. Bed in low position & locked, side rails up x3, bed alarm on.
[2020-08-05 20:00] VITALS: BP 159/72
--- NOTE | 2020-08-05 21:34 | Pulmonology Progress Note ---
Subjective ROS Limited/Unobtainable: No Constitutional: Reports: no symptoms Gastrointestinal/Abdominal: Reports: no symptoms Allergies: Coded Allergies: AZITHROMYCIN (Verified Allergy, Intermediate, ITCHINESS, 10/15/13) QUESTIONABLE ALLERGIC RXN BUT PT STARTED ITCHING AFTER BEING GIVEN A DOSE BUT PT NOT SURE Objective Last 24 Hour Vital Signs Date Time Temp Pulse Resp B/P (MAP) Pulse Ox O2 Delivery O2 Flow Rate FiO2 08/05/20 16:00 98.1 78 21 147/67 (93) 95 08/05/20 16:00 60 08/05/20 12:00 60 08/05/20 12:00 98.6 66 21 145/59 (87) 95 08/05/20 10:11 70 164/76 08/05/20 09:00 Room Air 08/05/20 08:00 97.9 70 18 164/76 (105) 97 08/05/20 04:00 97.0 66 20 154/93 (113) 96 08/05/20 04:00 66 08/05/20 00:00 63 08/05/20 00:00 97.6 63 20 150/73 (98) 98 Intake and Output 08/04/20 08/05/20 19:00 07:00 Intake Total 360 ml 250 ml Output Total 450 ml Balance 360 ml -200 ml Intake Oral 360 ml 250 ml Output Urine Total 450 ml # Voids 4 2 Laboratory Tests 08/05/20 06:24: POC Whole Blood Glucose 239H 08/05/20 08:10: White Blood Count 6.5, Red Blood Count 5.95H, Hemoglobin 13.3, Hematocrit 44.6, Mean Corpuscular Volume 75L, Mean Corpuscular Hemoglobin 22.3L, Mean Corpuscular Hemoglobin Concent 29.8L, Red Cell Distribution Width 11.7, Platelet Count 316, Mean Platelet Volume 5.9L, Neutrophils (%) (Auto) 82.8H, Lymphocytes (%) (Auto) 11.0L, Monocytes (%) (Auto) 5.0, Eosinophils (%) (Auto) 0.0, Basophils (%) (Auto) 1.3, Sodium Level 141, Potassium Level 4.4, Chloride Level 106, Carbon Dioxide Level 29, Anion Gap 6, Blood Urea Nitrogen 23H, Creatinine 1.0, Estimat Glomerular Filtration Rate > 60, Glucose Level 239H, Calcium Level 9.8, Magnesium Level 2.1, Total Bilirubin 0.3, Direct Bilirubin 0.2, Aspartate Amino Transf (AST/SGOT) 19, Alanine Aminotransferase (ALT/SGPT) 22, Alkaline Phosphatase 69, Total Protein 7.6, Albumin 2.6L, Globulin 5.0, Albumin/Globulin Ratio 0.5L 08/05/20 12:12: POC Whole Blood Glucose [Pending] 08/05/20 18:19: POC Whole Blood Glucose 311H 08/05/20 20:40: POC Whole Blood Glucose 297H Current Medications Medications (Trade) Dose Ordered Sig/Haider Route PRN Reason Start Time Stop Time Status Last Admin Dose Admin Albuterol/ Ipratropium (Combivent Respimat) 1 puff Q6HR INH 08/03/20 00:00 09/02/20 00:00 08/05/20 18:20 Aspirin (Ecotrin) 81 mg DAILY ORAL 08/03/20 09:00 09/17/20 08:59 08/05/20 10:11 Carvedilol (Coreg) 12.5 mg DAILY ORAL 08/03/20 09:00 09/02/20 08:59 08/05/20 10:11 Dexamethasone (Decadron) 6 mg DAILY ORAL 08/04/20 13:30 08/13/20 09:01 08/05/20 10:11 Dextrose (Dextrose 50%) 25 ml Q30M PRN IV Hypoglycemia 08/02/20 16:00 10/31/20 15:59 Dextrose (Dextrose 50%) 50 ml Q30M PRN IV Hypoglycemia 08/02/20 16:00 10/31/20 15:59 Furosemide (Lasix) 20 mg DAILY IV 08/03/20 09:00 08/07/20 22:00 08/05/20 10:12 Heparin Sodium (Porcine) (Heparin 5000 units/ml) 5,000 units EVERY 12 HOURS SUBQ 08/02/20 21:00 09/16/20 20:59 08/05/20 10:11 Insulin Aspart (NovoLOG) BEFORE MEALS AND HS SUBQ 08/02/20 16:30 10/31/20 16:29 08/05/20 16:30 Insulin Aspart (NovoLOG) 6 units NOVOTIAC SUBQ 08/05/20 11:50 11/03/20 11:49 08/05/20 16:50 Insulin Detemir (Levemir) 28 units BEDTIME SUBQ 08/05/20 21:00 11/03/20 20:59 Losartan Potassium (Cozaar) 100 mg DAILY ORAL 08/06/20 09:00 09/05/20 08:59 Remdesivir 100 mg/ Sodium Chloride 250 ml @ 250 mls/hr Q24H IV 08/04/20 14:00 08/07/20 14:59 08/05/20 14:05 Assessment/Plan Assessment/Plan Pulmonary Progress Note Patient is an 85-year-old woman with multiple medical problems including DM, HTN, CKD,Blindness admitted with increasing shortness of breath for 2 weeks. + COVID-19 pneumonia. Currently comfortable care noted and discussed, stable on RA PAST MEDICAL HISTORY: 1. Type 2 diabetes mellitus. 2. Diastolic heart failure. 3. Status post pacemaker. 4. Severe diabetic neuropathy. 5. Diabetic nephropathy. 6. Chronic kidney disease stage 3. 7. Advanced diabetic retinopathy with blindness. 8. Hypertensive cardiovascular disease. 9. Noncompliance with medications. PHYSICAL EXAMINATION: Vital signs noted deferred due to COVID+ Laboratory Tests noted ASSESSMENT: 1. CHF, compensated 2.+ COVID-19. pneumonia 3. Type 2 diabetes mellitus. 4. no significant hypoxemia 5. Status post pacemaker. 6. Chronic kidney disease stage 3. 7. Hypertension PLAN ID following - Dex/Remdes stable pulmonary status DVT prophylaxis inhalers prn oxygen prn monitor imaging for change impression, plan, and exam edited and reviewed in detail care discussed with Darci Padilla MD Aug 05, 2020 21:34
[2020-08-05] MEDS: Levemir Flexpen SUBQ SCH (21:41)
--- NOTE | 2020-08-05 22:30 | NUR ---
NURSE NOTES: Paged Dr. Lozano regarding pts elevated BP 175/80, p 88, no c/o pain or dizziness. awaiting call back.
--- NOTE | 2020-08-05 23:15 | NUR ---
NURSE NOTES: Paged Dr. Lozano regarding pts elevated BP, awaiting call back.
--- NOTE | 2020-08-05 23:33 | NUR ---
NURSE NOTES: Dr. Lozano called back with new orders noted & carried out.
[2020-08-06] VITALS (7 sets, daily range): BP systolic 107–188; BP diastolic 46–80
[2020-08-06] MEDS: NovoLOG Insulin Flexpen SUBQ SCH ×7 (06:33→20:54)
--- NOTE | 2020-08-06 07:23 | NUR ---
NURSE HAND-OFF REPORT: Important Events on Shift: NOTED EPISODE OF ELEVATED B/P DR. LOVE NOTIFIED WITH NEW ORDERS GIVEN Patient Status: STABLE Diet: CARDIAC Pending Orders: yes Pending Results/Labs:yes Pending MD notification:[] Latest Vital Signs: Temperature 97.7 , Pulse 60 , B/P 128 /68 , Respiratory Rate 18 , O2 SAT 97 , Room Air, O2 Flow Rate . Vital Sign Comment: [] EKG Rhythm: A-Paced Rhythm change?: N MD Notified?: N -Dr Blake WHITLOCK Response: Message left await call Latest Cates Fall Score: 25 Fall Risk: Medium Risk Safety Measures: Call light Within Reach, Bed Alarm Zone 2, Side Rails Side Rails x3, Bed position Low and Locked. Fall Precautions: Yellow Socks Yellow Gown Door Sign Patient Fall Education Report given to ANAHY Hector.
--- NOTE | 2020-08-06 07:33 | NUR ---
NURSE NOTES: Received report from ANAHY Marin. Pt in bed awake and alert.. On O2 via NC at 2L/min, no resp distress noted. On cardiac monitoring. No c/o pain. Bed in low position & locked, side rail up x2. Bed alarm on. Call light with in reach. Remained pt to use call light for assistance. Whiteboard updated. Asking for assistance with feeding. Will inform WHEEL WORKER.
[2020-08-06 07:55] LABS: BASOPHILS % (AUTO) 1.6 % (0.0-2.0); HEMATOCRIT 40.6 % (37.0-47.0); HEMOGLOBIN 12.4 G/DL (12.0-16.0); LYMPHOCYTES % (AUTO) 10.4 % (20.0-45.0); MEAN CORPUSCULAR VOLUME 75 FL (80-99); MONOCYTES % (AUTO) 4.9 % (1.0-10.0); NEUTROPHILS % (AUTO) 83.1 % (45.0-75.0); PLATELET COUNT 320 K/UL (150-450); RED BLOOD COUNT 5.44 M/UL (4.20-5.40); RED CELL DISTRIBUTION WIDTH 11.6 % (11.6-14.8); WHITE BLOOD COUNT 7.6 K/UL (4.8-10.8)
--- NOTE | 2020-08-06 07:59 | Pulmonology Progress Note ---
Subjective ROS Limited/Unobtainable: No Constitutional: Reports: no symptoms Gastrointestinal/Abdominal: Reports: no symptoms Allergies: Coded Allergies: AZITHROMYCIN (Verified Allergy, Intermediate, ITCHINESS, 10/15/13) QUESTIONABLE ALLERGIC RXN BUT PT STARTED ITCHING AFTER BEING GIVEN A DOSE BUT PT NOT SURE Subjective care noted and reviewed on oxygen no distress Objective Last 24 Hour Vital Signs Date Time Temp Pulse Resp B/P (MAP) Pulse Ox O2 Delivery O2 Flow Rate FiO2 08/06/20 04:00 60 08/06/20 04:00 97.7 18 128/68 (88) 08/06/20 01:00 20 167/80 (109) 08/06/20 00:00 97.9 100 18 188/77 (114) 97 08/06/20 00:00 60 08/05/20 23:48 92 190/82 08/05/20 21:00 Room Air 08/05/20 20:00 97.6 66 18 159/72 (101) 94 08/05/20 20:00 60 08/05/20 16:00 98.1 78 21 147/67 (93) 95 08/05/20 16:00 60 08/05/20 12:00 60 08/05/20 12:00 98.6 66 21 145/59 (87) 95 08/05/20 10:11 70 164/76 08/05/20 09:00 Room Air 08/05/20 08:00 97.9 70 18 164/76 (105) 97 Intake and Output 08/05/20 08/06/20 19:00 07:00 Output Total 400 ml Balance -400 ml Output Urine Total 400 ml # Voids 1 Objective deferred due to COVID Laboratory Tests 08/05/20 08:10: White Blood Count 6.5, Red Blood Count 5.95H, Hemoglobin 13.3, Hematocrit 44.6, Mean Corpuscular Volume 75L, Mean Corpuscular Hemoglobin 22.3L, Mean Corpuscular Hemoglobin Concent 29.8L, Red Cell Distribution Width 11.7, Platelet Count 316, Mean Platelet Volume 5.9L, Neutrophils (%) (Auto) 82.8H, Lymphocytes (%) (Auto) 11.0L, Monocytes (%) (Auto) 5.0, Eosinophils (%) (Auto) 0.0, Basophils (%) (Auto) 1.3, Sodium Level 141, Potassium Level 4.4, Chloride Level 106, Carbon Dioxide Level 29, Anion Gap 6, Blood Urea Nitrogen 23H, Creatinine 1.0, Estimat Glomerular Filtration Rate > 60, Glucose Level 239H, Calcium Level 9.8, Magnesium Level 2.1, Total Bilirubin 0.3, Direct Bilirubin 0.2, Aspartate Amino Transf (AST/SGOT) 19, Alanine Aminotransferase (ALT/SGPT) 22, Alkaline Phosphatase 69, Total Protein 7.6, Albumin 2.6L, Globulin 5.0, Albumin/Globulin Ratio 0.5L 08/05/20 12:12: POC Whole Blood Glucose [Pending] 08/05/20 18:19: POC Whole Blood Glucose 311H 08/05/20 20:40: POC Whole Blood Glucose 297H 08/06/20 04:58: POC Whole Blood Glucose 233H 08/06/20 07:06: White Blood Count [Pending], Red Blood Count [Pending], Hemoglobin [Pending], Hematocrit [Pending], Mean Corpuscular Volume [Pending], Mean Corpuscular Hemoglobin [Pending], Mean Corpuscular Hemoglobin Concent [Pending], Red Cell Distribution Width [Pending], Platelet Count [Pending], Mean Platelet Volume [Pending], Neutrophils (%) (Auto) [Pending], Lymphocytes (%) (Auto) [Pending], Monocytes (%) (Auto) [Pending], Eosinophils (%) (Auto) [Pending], Basophils (%) (Auto) [Pending], Sodium Level [Pending], Potassium Level [Pending], Chloride Level [Pending], Carbon Dioxide Level [Pending], Blood Urea Nitrogen [Pending], Creatinine [Pending], Estimat Glomerular Filtration Rate [Pending], Glucose Level [Pending], Calcium Level [Pending], Total Bilirubin [Pending], Direct Bilirubin [Pending], Aspartate Amino Transf (AST/SGOT) [Pending], Alanine Aminotransferase (ALT/SGPT) [Pending], Alkaline Phosphatase [Pending], Total Protein [Pending], Albumin [Pending], Globulin [Pending] Current Medications Medications (Trade) Dose Ordered Sig/Haider Route PRN Reason Start Time Stop Time Status Last Admin Dose Admin Albuterol/ Ipratropium (Combivent Respimat) 1 puff Q6HR INH 08/03/20 00:00 09/02/20 00:00 08/06/20 05:45 Aspirin (Ecotrin) 81 mg DAILY ORAL 08/03/20 09:00 09/17/20 08:59 08/05/20 10:11 Dexamethasone (Decadron) 6 mg DAILY ORAL 08/04/20 13:30 08/13/20 09:01 08/05/20 10:11 Dextrose (Dextrose 50%) 25 ml Q30M PRN IV Hypoglycemia 08/02/20 16:00 10/31/20 15:59 Dextrose (Dextrose 50%) 50 ml Q30M PRN IV Hypoglycemia 08/02/20 16:00 10/31/20 15:59 Furosemide (Lasix) 20 mg DAILY IV 08/03/20 09:00 08/07/20 22:00 08/05/20 10:12 Heparin Sodium (Porcine) (Heparin 5000 units/ml) 5,000 units EVERY 12 HOURS SUBQ 08/02/20 21:00 09/16/20 20:59 08/05/20 21:38 Insulin Aspart (NovoLOG) BEFORE MEALS AND HS SUBQ 08/02/20 16:30 10/31/20 16:29 08/06/20 06:33 Insulin Aspart (NovoLOG) 6 units NOVOTIAC SUBQ 08/05/20 11:50 11/03/20 11:49 08/06/20 06:36 Insulin Detemir (Levemir) 28 units BEDTIME SUBQ 08/05/20 21:00 11/03/20 20:59 08/05/20 21:41 Labetalol HCl (Normodyne) 300 mg Q12HR ORAL 08/06/20 09:00 09/05/20 08:59 Losartan Potassium (Cozaar) 100 mg DAILY ORAL 08/06/20 09:00 09/05/20 08:59 Remdesivir 100 mg/ Sodium Chloride 250 ml @ 250 mls/hr Q24H IV 08/04/20 14:00 08/07/20 14:59 08/05/20 14:05 Assessment/Plan Assessment/Plan ASSESSMENT: 1. CHF, compensated 2.+ COVID-19. pneumonia 3. Type 2 diabetes mellitus. 4. no significant hypoxemia 5. Status post pacemaker. 6. Chronic kidney disease stage 3. 7. Hypertension PLAN ID follow up pulmonary santos on oxygen DVT prophylaxis inhalers prn oxygen prn monitor imaging for change impression, plan, and exam edited and reviewed in detail care discussed with Rocael Aviles MD Aug 06, 2020 07:59
[2020-08-06 08:41] LABS: ALBUMIN 2.7 G/DL (3.4-5.0); ALBUMIN/GLOBULIN RATIO 0.6 (1.0-2.7); BILIRUBIN,DIRECT 0.1 MG/DL (0.0-0.3); BILIRUBIN,TOTAL 0.4 MG/DL (0.2-1.0); CALCIUM 9.8 MG/DL (8.5-10.1); CREATININE 1.2 MG/DL (0.55-1.30); POTASSIUM 4.3 MMOL/L (3.5-5.1)
[2020-08-06] MEDS: Aspirin EC 81mg tab ORAL SCH (08:50)
[2020-08-06] MEDS: Heparin 5000 units/ml inj SUBQ SCH ×2 (08:51→20:51)
[2020-08-06] MEDS: Losartan 50mg tab ORAL SCH (08:55)
--- NOTE | 2020-08-06 08:56 | NUR ---
NURSE NOTES: Pt on lastartan, furosomide, and labetalol. Will hold labetolol becasue HR is fluctuating in high 50s low 60;s. Will monitor BP.
[2020-08-06] MEDS ORDERED: Tubing IV Secondary IV ONE (10:51)
--- NOTE | 2020-08-06 12:22 | Infectious Diseases Prog Note ---
Assessment/Plan Assessment/Plan A; 1. COVID-19 pneumonia 2. Diabetes. 3. Hypertension. 4. Status post pacemaker placement. 5. Blindness 6. Hearing loss PLAN: 1. Continue remdesivir & dexamethasone. 2. Continue isolation. Subjective ROS Limited/Unobtainable: Yes Constitutional: Denies: fever Allergies: Coded Allergies: AZITHROMYCIN (Verified Allergy, Intermediate, ITCHINESS, 10/15/13) QUESTIONABLE ALLERGIC RXN BUT PT STARTED ITCHING AFTER BEING GIVEN A DOSE BUT PT NOT SURE Objective Last 24 Hour Vital Signs Date Time Temp Pulse Resp B/P (MAP) Pulse Ox O2 Delivery O2 Flow Rate FiO2 08/06/20 12:00 97.5 62 18 107/66 (80) 98 08/06/20 09:00 Nasal Cannula 3.0 08/06/20 08:56 60 152/46 08/06/20 08:55 152/46 08/06/20 08:00 60 08/06/20 08:00 97.7 81 18 152/46 (81) 98 08/06/20 04:00 60 08/06/20 04:00 97.7 18 128/68 (88) 08/06/20 01:00 20 167/80 (109) 08/06/20 00:00 97.9 100 18 188/77 (114) 97 08/06/20 00:00 60 08/05/20 23:48 92 190/82 08/05/20 21:00 Room Air 08/05/20 20:00 97.6 66 18 159/72 (101) 94 08/05/20 20:00 60 08/05/20 16:00 98.1 78 21 147/67 (93) 95 08/05/20 16:00 60 Height (Feet): 5 Height (Inches): 4.00 Weight (Pounds): 258 General Appearance: no acute distress HEENT: mucous membranes moist Respiratory/Chest: other - oxyeg by nasal cannula Cardiovascular: normal rate Abdomen: soft, non tender Extremities: no edema Neurologic/Psychiatric: other - sleeping Laboratory Tests Test 08/05/20 18:19 08/05/20 20:40 08/06/20 04:58 08/06/20 07:06 POC Whole Blood Glucose 311 MG/DL (74-106) H 297 MG/DL (74-106) H 233 MG/DL (74-106) H White Blood Count 7.6 K/UL (4.8-10.8) Red Blood Count 5.44 M/UL (4.20-5.40) H Hemoglobin 12.4 G/DL (12.0-16.0) Hematocrit 40.6 % (37.0-47.0) Mean Corpuscular Volume 75 FL (80-99) L Mean Corpuscular Hemoglobin 22.7 PG (27.0-31.0) L Mean Corpuscular Hemoglobin Concent 30.4 G/DL (32.0-36.0) L Red Cell Distribution Width 11.6 % (11.6-14.8) Platelet Count 320 K/UL (150-450) Mean Platelet Volume 6.4 FL (6.5-10.1) L Neutrophils (%) (Auto) 83.1 % (45.0-75.0) H Lymphocytes (%) (Auto) 10.4 % (20.0-45.0) L Monocytes (%) (Auto) 4.9 % (1.0-10.0) Eosinophils (%) (Auto) 0.0 % (0.0-3.0) Basophils (%) (Auto) 1.6 % (0.0-2.0) Sodium Level 140 MMOL/L (136-145) Potassium Level 4.3 MMOL/L (3.5-5.1) Chloride Level 105 MMOL/L (98-107) Carbon Dioxide Level 27 MMOL/L (21-32) Anion Gap 8 mmol/L (5-15) Blood Urea Nitrogen 27 mg/dL (7-18) H Creatinine 1.2 MG/DL (0.55-1.30) Estimat Glomerular Filtration Rate 51.5 mL/min (>60) Glucose Level 266 MG/DL (74-106) H Calcium Level 9.8 MG/DL (8.5-10.1) Total Bilirubin 0.4 MG/DL (0.2-1.0) Direct Bilirubin 0.1 MG/DL (0.0-0.3) Aspartate Amino Transf (AST/SGOT) 23 U/L (15-37) Alanine Aminotransferase (ALT/SGPT) 22 U/L (12-78) Alkaline Phosphatase 66 U/L (46-116) Total Protein 7.4 G/DL (6.4-8.2) Albumin 2.7 G/DL (3.4-5.0) L Globulin 4.7 g/dL Albumin/Globulin Ratio 0.6 (1.0-2.7) L Current Medications Medications (Trade) Dose Ordered Sig/Haider Route PRN Reason Start Time Stop Time Status Last Admin Dose Admin Albuterol/ Ipratropium (Combivent Respimat) 1 puff Q6HR INH 08/03/20 00:00 09/02/20 00:00 08/06/20 12:13 Aspirin (Ecotrin) 81 mg DAILY ORAL 08/03/20 09:00 09/17/20 08:59 08/06/20 08:50 Dexamethasone (Decadron) 6 mg DAILY ORAL 08/04/20 13:30 08/13/20 09:01 08/06/20 08:50 Dextrose (Dextrose 50%) 25 ml Q30M PRN IV Hypoglycemia 08/02/20 16:00 10/31/20 15:59 Dextrose (Dextrose 50%) 50 ml Q30M PRN IV Hypoglycemia 08/02/20 16:00 10/31/20 15:59 Furosemide (Lasix) 20 mg DAILY IV 08/03/20 09:00 08/07/20 22:00 08/06/20 08:50 Heparin Sodium (Porcine) (Heparin 5000 units/ml) 5,000 units EVERY 12 HOURS SUBQ 08/02/20 21:00 09/16/20 20:59 08/06/20 08:51 Insulin Aspart (NovoLOG) BEFORE MEALS AND HS SUBQ 08/02/20 16:30 10/31/20 16:29 08/06/20 11:54 Insulin Aspart (NovoLOG) 6 units NOVOTIAC SUBQ 08/05/20 11:50 11/03/20 11:49 08/06/20 11:55 Insulin Detemir (Levemir) 28 units BEDTIME SUBQ 08/05/20 21:00 11/03/20 20:59 08/05/20 21:41 Labetalol HCl (Normodyne) 300 mg Q12HR ORAL 08/06/20 09:00 09/05/20 08:59 Losartan Potassium (Cozaar) 100 mg DAILY ORAL 08/06/20 09:00 09/05/20 08:59 08/06/20 08:55 Remdesivir 100 mg/ Sodium Chloride 250 ml @ 250 mls/hr Q24H IV 08/04/20 14:00 08/07/20 14:59 08/05/20 14:05 Gavino Sun MD Aug 06, 2020 12:22
--- NOTE | 2020-08-06 12:29 | General Progress Note ---
Subjective Allergies: Coded Allergies: AZITHROMYCIN (Verified Allergy, Intermediate, ITCHINESS, 10/15/13) QUESTIONABLE ALLERGIC RXN BUT PT STARTED ITCHING AFTER BEING GIVEN A DOSE BUT PT NOT SURE Subjective No new c/o Objective Last 24 Hour Vital Signs Date Time Temp Pulse Resp B/P (MAP) Pulse Ox O2 Delivery O2 Flow Rate FiO2 08/06/20 12:00 97.5 62 18 107/66 (80) 98 08/06/20 09:00 Nasal Cannula 3.0 08/06/20 08:56 60 152/46 08/06/20 08:55 152/46 08/06/20 08:00 60 08/06/20 08:00 97.7 81 18 152/46 (81) 98 08/06/20 04:00 60 08/06/20 04:00 97.7 18 128/68 (88) 08/06/20 01:00 20 167/80 (109) 08/06/20 00:00 97.9 100 18 188/77 (114) 97 08/06/20 00:00 60 08/05/20 23:48 92 190/82 08/05/20 21:00 Room Air 08/05/20 20:00 97.6 66 18 159/72 (101) 94 08/05/20 20:00 60 08/05/20 16:00 98.1 78 21 147/67 (93) 95 08/05/20 16:00 60 Intake and Output 08/05/20 08/06/20 19:00 07:00 Output Total 400 ml Balance -400 ml Output Urine Total 400 ml # Voids 1 Laboratory Tests 08/05/20 18:19: POC Whole Blood Glucose 311H 08/05/20 20:40: POC Whole Blood Glucose 297H 08/06/20 04:58: POC Whole Blood Glucose 233H 08/06/20 07:06: White Blood Count 7.6, Red Blood Count 5.44H, Hemoglobin 12.4, Hematocrit 40.6, Mean Corpuscular Volume 75L, Mean Corpuscular Hemoglobin 22.7L, Mean Corpuscular Hemoglobin Concent 30.4L, Red Cell Distribution Width 11.6, Platelet Count 320, Mean Platelet Volume 6.4L, Neutrophils (%) (Auto) 83.1H, Lymphocytes (%) (Auto) 10.4L, Monocytes (%) (Auto) 4.9, Eosinophils (%) (Auto) 0.0, Basophils (%) (Auto) 1.6, Sodium Level 140, Potassium Level 4.3, Chloride Level 105, Carbon Dioxide Level 27, Anion Gap 8, Blood Urea Nitrogen 27H, Creatinine 1.2, Estimat Glomerular Filtration Rate 51.5, Glucose Level 266H, Calcium Level 9.8, Total Bilirubin 0.4, Direct Bilirubin 0.1, Aspartate Amino Transf (AST/SGOT) 23, Alanine Aminotransferase (ALT/SGPT) 22, Alkaline Phosphatase 66, Total Protein 7.4, Albumin 2.7L, Globulin 4.7, Albumin/Globulin Ratio 0.6L Height (Feet): 5 Height (Inches): 4.00 Weight (Pounds): 258 Objective Morbidly obese. Looks lethargic!! CV RR Lungs B wheezes Abs SNT BS+ E NO CCE Assessment/Plan Assessment/Plan: Covid 19 pneumonia . On Remdesevir. Abbey Lozano MD Aug 06, 2020 12:29
[2020-08-06] MEDS: Maintenance Dose:Remdesivir 100mg/NS 230ml x 4 Doses IV SCH ×2 (14:31)
--- NOTE | 2020-08-06 14:57 | NUR ---
CASE MANAGEMENT:REVIEW 08/06/20 SI:COVID PNA 97.5 62 18 107/66 98% ON 3L/NC BUN+27 GLUCOSE+266 IS: IV REMDESIVIR Q24 (DAY #4/5) DECADRON PO QD IV LASIX QD ASA PO QD DUONEB HHN Q6HRS HEPARIN SQ Q12 : TELEMETRY STATUS DCP: FROM HOME
[2020-08-06] MEDS ORDERED: Milk of Magnesia 30ml Ud ORAL PRN (15:30)
--- NOTE | 2020-08-06 19:15 | NUR ---
NURSE NOTES: Report received from ANAHY Hector. Patient asleep, but arousable. On 2L nasal cannula, saturating well. Breathing unlabored and even. Patient noted to occasionally remove nasal cannula, but still saturating above >92%, per report. Has a left upper chest A-paced pacemaker. IV sites intact and flushed; both on saline lock. Bed in lowest position, brakes engaged and bed alarm on. Bed rails raised x3. Call light placed within reach. Will continue to monitor.
--- NOTE | 2020-08-06 19:50 | NUR ---
HAND-OFF: Report given to Debbie jansen
[2020-08-06] MEDS: Levemir Flexpen SUBQ SCH (20:53)
[2020-08-07] VITALS: BP 168/68
[2020-08-07 04:00] VITALS: BP 156/61
[2020-08-07] MEDS: NovoLOG Insulin Flexpen SUBQ SCH ×7 (06:11→20:36)
[2020-08-07 07:00] LABS: BASOPHILS % (AUTO) 1.4 % (0.0-2.0); HEMATOCRIT 41.9 % (37.0-47.0); HEMOGLOBIN 12.6 G/DL (12.0-16.0); MEAN CORPUSCULAR VOLUME 75 FL (80-99); MONOCYTES % (AUTO) 7.7 % (1.0-10.0); NEUTROPHILS % (AUTO) 78.9 % (45.0-75.0); PLATELET COUNT 343 K/UL (150-450); RED BLOOD COUNT 5.61 M/UL (4.20-5.40); RED CELL DISTRIBUTION WIDTH 11.7 % (11.6-14.8)
--- NOTE | 2020-08-07 07:20 | NUR ---
NURSE NOTES: Received report from Hector/RN, Observed patient awake, lying semi-helm's, resting comfortably. On 2L nasal canula, no acute distress/SOB noted. Iv site patent and intact. Bed in low position and locked, Call light within reach. Encouraged to use call light when needed. Bed alarm is on, side rails up x3. Side. Will continue plan of care.
--- NOTE | 2020-08-07 07:33 | NUR ---
NURSE HAND-OFF REPORT: Important Events on Shift:[Still no BM during the shift] Patient Status: [FC] Diet: [Cardiac] Pending Orders: [] Pending Results/Labs:[] Pending MD notification:[] Latest Vital Signs: Temperature 97.9 , Pulse 60 , B/P 156 /61 , Respiratory Rate 22 , O2 SAT 100 , Nasal Cannula, O2 Flow Rate 3.0 . Vital Sign Comment: [] EKG Rhythm: A-Paced Rhythm change?: N MD Notified?: N -Dr Blake WHITLOCK Response: Message left await call Latest Cates Fall Score: 45 Fall Risk: High Risk Safety Measures: Call light Within Reach, Bed Alarm Zone 2, Side Rails Side Rails x3, Bed position Low and Locked. Fall Precautions: Yellow Socks Yellow Gown Door Sign Patient Fall Education Report given to [ANAHY Solis].
--- NOTE | 2020-08-07 07:46 | Pulmonology Progress Note ---
Subjective ROS Limited/Unobtainable: Yes Constitutional: Denies: fever Gastrointestinal/Abdominal: Reports: no symptoms Allergies: Coded Allergies: AZITHROMYCIN (Verified Allergy, Intermediate, ITCHINESS, 10/15/13) QUESTIONABLE ALLERGIC RXN BUT PT STARTED ITCHING AFTER BEING GIVEN A DOSE BUT PT NOT SURE Subjective care noted and reviewed on oxygen and stable no distress Objective Last 24 Hour Vital Signs Date Time Temp Pulse Resp B/P (MAP) Pulse Ox O2 Delivery O2 Flow Rate FiO2 08/07/20 04:00 60 08/07/20 04:00 97.9 60 22 156/61 (92) 100 08/07/20 00:00 60 08/07/20 00:00 98.1 60 22 168/68 (101) 96 08/06/20 21:00 Nasal Cannula 3.0 08/06/20 20:51 60 151/70 08/06/20 20:00 61 08/06/20 20:00 97.5 60 21 151/70 (97) 99 08/06/20 16:00 98.5 59 18 131/78 (95) 98 08/06/20 16:00 60 08/06/20 12:00 60 08/06/20 12:00 97.5 62 18 107/66 (80) 98 08/06/20 09:00 Nasal Cannula 3.0 08/06/20 08:56 60 152/46 08/06/20 08:55 152/46 08/06/20 08:00 60 08/06/20 08:00 97.7 81 18 152/46 (81) 98 Intake and Output 08/06/20 08/07/20 19:00 07:00 Intake Total 630 ml 120 ml Balance 630 ml 120 ml Intake Oral 630 ml 120 ml # Voids 1 1 Objective deferred due to COVID Laboratory Tests 08/06/20 20:37: POC Whole Blood Glucose 371H 08/07/20 05:55: POC Whole Blood Glucose 231H 08/07/20 06:12: White Blood Count 8.0, Red Blood Count 5.61H, Hemoglobin 12.6, Hematocrit 41.9, Mean Corpuscular Volume 75L, Mean Corpuscular Hemoglobin 22.4L, Mean Corpuscular Hemoglobin Concent 30.0L, Red Cell Distribution Width 11.7, Platelet Count 343, Mean Platelet Volume 6.9, Neutrophils (%) (Auto) 78.9H, Lymphocytes (%) (Auto) 12.0L, Monocytes (%) (Auto) 7.7, Eosinophils (%) (Auto) 0.0, Basophils (%) (Auto) 1.4, Sodium Level [Pending], Potassium Level [Pending], Chloride Level [Pending], Carbon Dioxide Level [Pending], Blood Urea Nitrogen [Pending], Creatinine [Pending], Estimat Glomerular Filtration Rate [Pending], Glucose Level [Pending], Calcium Level [Pending], Total Bilirubin [Pending], Direct Bilirubin [Pending], Aspartate Amino Transf (AST/SGOT) [Pending], Alanine Aminotransferase (ALT/SGPT) [Pending], Alkaline Phosphatase [Pending], Total Protein [Pending], Albumin [Pending], Globulin [Pending] Current Medications Medications (Trade) Dose Ordered Sig/Haider Route PRN Reason Start Time Stop Time Status Last Admin Dose Admin Albuterol/ Ipratropium (Combivent Respimat) 1 puff Q6HR INH 08/03/20 00:00 09/02/20 00:00 08/07/20 06:18 Aspirin (Ecotrin) 81 mg DAILY ORAL 08/03/20 09:00 09/17/20 08:59 08/06/20 08:50 Dexamethasone (Decadron) 6 mg DAILY ORAL 08/04/20 13:30 08/13/20 09:01 08/06/20 08:50 Dextrose (Dextrose 50%) 25 ml Q30M PRN IV Hypoglycemia 08/02/20 16:00 10/31/20 15:59 Dextrose (Dextrose 50%) 50 ml Q30M PRN IV Hypoglycemia 08/02/20 16:00 10/31/20 15:59 Furosemide (Lasix) 20 mg DAILY IV 08/03/20 09:00 08/07/20 22:00 08/06/20 08:50 Heparin Sodium (Porcine) (Heparin 5000 units/ml) 5,000 units EVERY 12 HOURS SUBQ 08/02/20 21:00 09/16/20 20:59 08/06/20 20:51 Insulin Aspart (NovoLOG) BEFORE MEALS AND HS SUBQ 08/02/20 16:30 10/31/20 16:29 08/07/20 06:11 Insulin Aspart (NovoLOG) 6 units NOVOTIAC SUBQ 08/05/20 11:50 11/03/20 11:49 08/07/20 06:12 Insulin Detemir (Levemir) 28 units BEDTIME SUBQ 08/05/20 21:00 11/03/20 20:59 08/06/20 20:53 Labetalol HCl (Normodyne) 300 mg Q12HR ORAL 08/06/20 09:00 09/05/20 08:59 Losartan Potassium (Cozaar) 100 mg DAILY ORAL 08/06/20 09:00 09/05/20 08:59 08/06/20 08:55 Magnesium Hydroxide (Mom) 30 ml DAILYPRN PRN ORAL Constipation 08/06/20 15:30 09/05/20 15:29 08/06/20 16:58 Remdesivir 100 mg/ Sodium Chloride 250 ml @ 250 mls/hr Q24H IV 08/04/20 14:00 08/07/20 14:59 08/06/20 14:31 Assessment/Plan Assessment/Plan ASSESSMENT: 1. CHF, compensated 2.+ COVID-19. pneumonia 3. Type 2 diabetes mellitus. 4. no significant hypoxemia 5. Status post pacemaker. 6. Chronic kidney disease stage 3. 7. Hypertension PLAN ID follow up pulmonary santos on oxygen and stable DVT prophylaxis inhalers prn oxygen prn monitor imaging for change currently without pulmonary congestion impression, plan, and exam edited and reviewed in detail care discussed with Rocael Aviles MD Aug 07, 2020 07:46
[2020-08-07 08:00] VITALS: BP 171/79
[2020-08-07] MEDS: Losartan 50mg tab ORAL SCH (08:36)
[2020-08-07] MEDS: Aspirin EC 81mg tab ORAL SCH (08:36)
[2020-08-07] MEDS: Heparin 5000 units/ml inj SUBQ SCH ×2 (08:38→20:31)
[2020-08-07 09:04] LABS: ALANINE AMINOTRANSFERASE 26 U/L (12-78); ALBUMIN 2.8 G/DL (3.4-5.0); ALBUMIN/GLOBULIN RATIO 0.6 (1.0-2.7); ALKALINE PHOSPHATASE 66 U/L (46-116); ANION GAP 9 mmol/L (5-15); ASPARTATE AMINO TRANSFERASE 30 U/L (15-37); BILIRUBIN,DIRECT < 0.1 MG/DL (0.0-0.3); BILIRUBIN,TOTAL 0.3 MG/DL (0.2-1.0); BLOOD UREA NITROGEN 30 mg/dL (7-18); CALCIUM 9.7 MG/DL (8.5-10.1); CARBON DIOXIDE 26 MMOL/L (21-32); CHLORIDE 105 MMOL/L (98-107); CREATININE 1.1 MG/DL (0.55-1.30); POTASSIUM 4.6 MMOL/L (3.5-5.1); SODIUM 140 MMOL/L (136-145)
--- NOTE | 2020-08-07 11:05 | Infectious Diseases Prog Note ---
Assessment/Plan Assessment/Plan antibiotics : remdesivir A 1. COVID 19 pneumonia on 3 liters O2, saturation 99 percent 2. diabetes mellitus 3. hypertension P 1. complete remdesivir today 2. okay for discharge from ID perspective Subjective Constitutional: Denies: fever, chills Respiratory: Reports: shortness of breath - decreased, dry cough - decreased Gastrointestinal/Abdominal: Denies: nausea, vomiting, diarrhea Musculoskeletal: Denies: pain Allergies: Coded Allergies: AZITHROMYCIN (Verified Allergy, Intermediate, ITCHINESS, 10/15/13) QUESTIONABLE ALLERGIC RXN BUT PT STARTED ITCHING AFTER BEING GIVEN A DOSE BUT PT NOT SURE Objective Last 24 Hour Vital Signs Date Time Temp Pulse Resp B/P (MAP) Pulse Ox O2 Delivery O2 Flow Rate FiO2 08/07/20 09:00 Nasal Cannula 3.0 08/07/20 08:37 60 171/79 08/07/20 08:36 171/79 08/07/20 08:00 60 08/07/20 08:00 97.7 60 18 171/79 (109) 100 08/07/20 04:00 60 08/07/20 04:00 97.9 60 22 156/61 (92) 100 08/07/20 00:00 60 08/07/20 00:00 98.1 60 22 168/68 (101) 96 08/06/20 21:00 Nasal Cannula 3.0 08/06/20 20:51 60 151/70 08/06/20 20:00 61 08/06/20 20:00 97.5 60 21 151/70 (97) 99 08/06/20 16:00 98.5 59 18 131/78 (95) 98 08/06/20 16:00 60 08/06/20 12:00 60 08/06/20 12:00 97.5 62 18 107/66 (80) 98 Height (Feet): 5 Height (Inches): 4.00 Weight (Pounds): 258 Laboratory Tests Test 08/06/20 20:37 08/07/20 05:55 08/07/20 06:12 POC Whole Blood Glucose 371 MG/DL (74-106) H 231 MG/DL (74-106) H White Blood Count 8.0 K/UL (4.8-10.8) Red Blood Count 5.61 M/UL (4.20-5.40) H Hemoglobin 12.6 G/DL (12.0-16.0) Hematocrit 41.9 % (37.0-47.0) Mean Corpuscular Volume 75 FL (80-99) L Mean Corpuscular Hemoglobin 22.4 PG (27.0-31.0) L Mean Corpuscular Hemoglobin Concent 30.0 G/DL (32.0-36.0) L Red Cell Distribution Width 11.7 % (11.6-14.8) Platelet Count 343 K/UL (150-450) Mean Platelet Volume 6.9 FL (6.5-10.1) Neutrophils (%) (Auto) 78.9 % (45.0-75.0) H Lymphocytes (%) (Auto) 12.0 % (20.0-45.0) L Monocytes (%) (Auto) 7.7 % (1.0-10.0) Eosinophils (%) (Auto) 0.0 % (0.0-3.0) Basophils (%) (Auto) 1.4 % (0.0-2.0) Sodium Level 140 MMOL/L (136-145) Potassium Level 4.6 MMOL/L (3.5-5.1) Chloride Level 105 MMOL/L (98-107) Carbon Dioxide Level 26 MMOL/L (21-32) Anion Gap 9 mmol/L (5-15) Blood Urea Nitrogen 30 mg/dL (7-18) H Creatinine 1.1 MG/DL (0.55-1.30) Estimat Glomerular Filtration Rate 57.0 mL/min (>60) Glucose Level 234 MG/DL (74-106) H Calcium Level 9.7 MG/DL (8.5-10.1) Total Bilirubin 0.3 MG/DL (0.2-1.0) Direct Bilirubin < 0.1 MG/DL (0.0-0.3) Aspartate Amino Transf (AST/SGOT) 30 U/L (15-37) Alanine Aminotransferase (ALT/SGPT) 26 U/L (12-78) Alkaline Phosphatase 66 U/L (46-116) Total Protein 7.3 G/DL (6.4-8.2) Albumin 2.8 G/DL (3.4-5.0) L Globulin 4.5 g/dL Albumin/Globulin Ratio 0.6 (1.0-2.7) L Current Medications Medications (Trade) Dose Ordered Sig/Haider Route PRN Reason Start Time Stop Time Status Last Admin Dose Admin Albuterol/ Ipratropium (Combivent Respimat) 1 puff Q6HR INH 08/03/20 00:00 09/02/20 00:00 08/07/20 06:18 Aspirin (Ecotrin) 81 mg DAILY ORAL 08/03/20 09:00 09/17/20 08:59 08/07/20 08:36 Dexamethasone (Decadron) 6 mg DAILY ORAL 08/04/20 13:30 08/13/20 09:01 08/07/20 08:36 Dextrose (Dextrose 50%) 25 ml Q30M PRN IV Hypoglycemia 08/02/20 16:00 10/31/20 15:59 Dextrose (Dextrose 50%) 50 ml Q30M PRN IV Hypoglycemia 08/02/20 16:00 10/31/20 15:59 Furosemide (Lasix) 20 mg DAILY IV 08/03/20 09:00 08/07/20 22:00 08/07/20 08:36 Heparin Sodium (Porcine) (Heparin 5000 units/ml) 5,000 units EVERY 12 HOURS SUBQ 08/02/20 21:00 09/16/20 20:59 08/07/20 08:38 Insulin Aspart (NovoLOG) BEFORE MEALS AND HS SUBQ 08/02/20 16:30 10/31/20 16:29 08/07/20 06:11 Insulin Aspart (NovoLOG) 6 units NOVOTIAC SUBQ 08/05/20 11:50 11/03/20 11:49 08/07/20 06:12 Insulin Detemir (Levemir) 28 units BEDTIME SUBQ 08/05/20 21:00 11/03/20 20:59 08/06/20 20:53 Labetalol HCl (Normodyne) 300 mg Q12HR ORAL 08/06/20 09:00 09/05/20 08:59 08/07/20 08:37 Losartan Potassium (Cozaar) 100 mg DAILY ORAL 08/06/20 09:00 09/05/20 08:59 08/07/20 08:36 Magnesium Hydroxide (Mom) 30 ml DAILYPRN PRN ORAL Constipation 08/06/20 15:30 09/05/20 15:29 08/06/20 16:58 Remdesivir 100 mg/ Sodium Chloride 250 ml @ 250 mls/hr Q24H IV 08/04/20 14:00 08/07/20 14:59 08/06/20 14:31 Nahomi Garcia MD Aug 07, 2020 11:05
[2020-08-07 12:00] VITALS: BP 178/53
--- NOTE | 2020-08-07 12:09 | NUR ---
NURSE NOTES: Paged Dr. Lozano for high blood pressure 178/53, Awaiting for call back.
--- NOTE | 2020-08-07 12:16 | NUR ---
NURSE NOTES: O2 at 1L 97%, not in distress.
--- NOTE | 2020-08-07 12:32 | General Progress Note ---
Subjective Allergies: Coded Allergies: AZITHROMYCIN (Verified Allergy, Intermediate, ITCHINESS, 10/15/13) QUESTIONABLE ALLERGIC RXN BUT PT STARTED ITCHING AFTER BEING GIVEN A DOSE BUT PT NOT SURE Subjective No new c/o Objective Last 24 Hour Vital Signs Date Time Temp Pulse Resp B/P (MAP) Pulse Ox O2 Delivery O2 Flow Rate FiO2 08/07/20 12:00 99.7 68 18 178/53 (94) 99 08/07/20 09:00 Nasal Cannula 3.0 08/07/20 08:37 60 171/79 08/07/20 08:36 171/79 08/07/20 08:00 60 08/07/20 08:00 97.7 60 18 171/79 (109) 100 08/07/20 04:00 60 08/07/20 04:00 97.9 60 22 156/61 (92) 100 08/07/20 00:00 60 08/07/20 00:00 98.1 60 22 168/68 (101) 96 08/06/20 21:00 Nasal Cannula 3.0 08/06/20 20:51 60 151/70 08/06/20 20:00 61 08/06/20 20:00 97.5 60 21 151/70 (97) 99 08/06/20 16:00 98.5 59 18 131/78 (95) 98 08/06/20 16:00 60 Intake and Output 08/06/20 08/07/20 19:00 07:00 Intake Total 630 ml 120 ml Balance 630 ml 120 ml Intake Oral 630 ml 120 ml # Voids 1 1 Laboratory Tests 08/06/20 20:37: POC Whole Blood Glucose 371H 08/07/20 05:55: POC Whole Blood Glucose 231H 08/07/20 06:12: White Blood Count 8.0, Red Blood Count 5.61H, Hemoglobin 12.6, Hematocrit 41.9, Mean Corpuscular Volume 75L, Mean Corpuscular Hemoglobin 22.4L, Mean Corpuscular Hemoglobin Concent 30.0L, Red Cell Distribution Width 11.7, Platelet Count 343, Mean Platelet Volume 6.9, Neutrophils (%) (Auto) 78.9H, Lymphocytes (%) (Auto) 12.0L, Monocytes (%) (Auto) 7.7, Eosinophils (%) (Auto) 0.0, Basophils (%) (Auto) 1.4, Sodium Level 140, Potassium Level 4.6, Chloride Level 105, Carbon Dioxide Level 26, Anion Gap 9, Blood Urea Nitrogen 30H, Creatinine 1.1, Estimat Glomerular Filtration Rate 57.0, Glucose Level 234H, Calcium Level 9.7, Total Bilirubin 0.3, Direct Bilirubin < 0.1, Aspartate Amino Transf (AST/SGOT) 30, Alanine Aminotransferase (ALT/SGPT) 26, Alkaline Phosphatase 66, Total Protein 7.3, Albumin 2.8L, Globulin 4.5, Albumin/Globulin Ratio 0.6L 08/07/20 11:25: POC Whole Blood Glucose [Pending] Height (Feet): 5 Height (Inches): 4.00 Weight (Pounds): 258 Objective Morbidly obese. Looks lethargic!! CV RR Lungs B wheezes Abs SNT BS+ E NO CCE Assessment/Plan Assessment/Plan: Covid 19 pneumonia . On Remdesevir. DC home today Abbey Lozano MD Aug 07, 2020 12:32
--- NOTE | 2020-08-07 12:35 | General Progress Note ---
Subjective Allergies: Coded Allergies: AZITHROMYCIN (Verified Allergy, Intermediate, ITCHINESS, 10/15/13) QUESTIONABLE ALLERGIC RXN BUT PT STARTED ITCHING AFTER BEING GIVEN A DOSE BUT PT NOT SURE Subjective No new c/o Objective Last 24 Hour Vital Signs Date Time Temp Pulse Resp B/P (MAP) Pulse Ox O2 Delivery O2 Flow Rate FiO2 08/07/20 12:00 99.7 68 18 178/53 (94) 99 08/07/20 09:00 Nasal Cannula 3.0 08/07/20 08:37 60 171/79 08/07/20 08:36 171/79 08/07/20 08:00 60 08/07/20 08:00 97.7 60 18 171/79 (109) 100 08/07/20 04:00 60 08/07/20 04:00 97.9 60 22 156/61 (92) 100 08/07/20 00:00 60 08/07/20 00:00 98.1 60 22 168/68 (101) 96 08/06/20 21:00 Nasal Cannula 3.0 08/06/20 20:51 60 151/70 08/06/20 20:00 61 08/06/20 20:00 97.5 60 21 151/70 (97) 99 08/06/20 16:00 98.5 59 18 131/78 (95) 98 08/06/20 16:00 60 Intake and Output 08/06/20 08/07/20 19:00 07:00 Intake Total 630 ml 120 ml Balance 630 ml 120 ml Intake Oral 630 ml 120 ml # Voids 1 1 Laboratory Tests 08/06/20 20:37: POC Whole Blood Glucose 371H 08/07/20 05:55: POC Whole Blood Glucose 231H 08/07/20 06:12: White Blood Count 8.0, Red Blood Count 5.61H, Hemoglobin 12.6, Hematocrit 41.9, Mean Corpuscular Volume 75L, Mean Corpuscular Hemoglobin 22.4L, Mean Corpuscular Hemoglobin Concent 30.0L, Red Cell Distribution Width 11.7, Platelet Count 343, Mean Platelet Volume 6.9, Neutrophils (%) (Auto) 78.9H, Lymphocytes (%) (Auto) 12.0L, Monocytes (%) (Auto) 7.7, Eosinophils (%) (Auto) 0.0, Basophils (%) (Auto) 1.4, Sodium Level 140, Potassium Level 4.6, Chloride Level 105, Carbon Dioxide Level 26, Anion Gap 9, Blood Urea Nitrogen 30H, Creatinine 1.1, Estimat Glomerular Filtration Rate 57.0, Glucose Level 234H, Calcium Level 9.7, Total Bilirubin 0.3, Direct Bilirubin < 0.1, Aspartate Amino Transf (AST/SGOT) 30, Alanine Aminotransferase (ALT/SGPT) 26, Alkaline Phosphatase 66, Total Protein 7.3, Albumin 2.8L, Globulin 4.5, Albumin/Globulin Ratio 0.6L 08/07/20 11:25: POC Whole Blood Glucose [Pending] Height (Feet): 5 Height (Inches): 4.00 Weight (Pounds): 258 Objective Morbidly obese. Looks lethargic!! CV RR Lungs B wheezes Abs SNT BS+ E NO CCE Assessment/Plan Assessment/Plan: Covid 19 pneumonia . On Remdesevir. Cannot DC home today. BP 200/100 m/p due to Dexamethasone. Increasing Rx Abbey Lozano MD Aug 07, 2020 12:35
--- NOTE | 2020-08-07 13:01 | NUR ---
RD ASSESSMENT & RECOMMENDATIONS SEE CARE ACTIVITY FOR COMPLETE ASSESSMENT DAILY ESTIMATED NEEDS: Needs based on DM obesity/ ABW 72kg 20-25kcal/kg kcals/kg 0822-1479 total kcals 1-1.5 g protein/kg 72-108 g total protein 20-25 mL/kg 5152-4361 total fluid mLs NUTRITION DIAGNOSIS: * Altered nutrition related lab values r/t diabetes dx, on steroidal med as evidenced by elev BG's in the 200's and 300's, on Decadron. CURRENT DIET:CARDIAC PO DIET RECOMMENDATIONS: CCHO LOW + CARDIAC ADDITIONAL RECOMMENDATIONS: * Obtain a calibrated bed scale wt as able * Monitor BGs, need to increase insulin regimen * Add CCHO LOW to diet order * Monitor PO intake, need for additional snacks/HPN: variable at this time
[2020-08-07] MEDS: Maintenance Dose:Remdesivir 100mg/NS 230ml x 4 Doses IV SCH ×2 (14:49)
[2020-08-07 16:00] VITALS: BP 172/55
--- NOTE | 2020-08-07 19:10 | NUR ---
NURSE HAND-OFF REPORT: Important Events on Shift:NA Patient Status: Stable Diet: Cardiac Pending Orders: 2D Echo Pending Results/Labs:NA Pending notification:NA Latest Vital Signs: Temperature 98.1 , Pulse 60 , B/P 172 /55 , Respiratory Rate 18 , O2 SAT 96 , Nasal Cannula, O2 Flow Rate 3.0 . Vital Sign Comment: Stable EKG Rhythm: A-Paced Rhythm change?: N MD Notified?: N -Dr Blake WHITLOCK Response: Message left await call Latest Cates Fall Score: 35 Fall Risk: Medium Risk Safety Measures: Call light Within Reach, Bed Alarm Zone 2, Side Rails Side Rails x3, Bed position Low and Locked. Fall Precautions: Yellow Socks Yellow Gown Door Sign Patient Fall Education Report given to Hector/ANAHY.
--- NOTE | 2020-08-07 19:26 | NUR ---
NURSE NOTES: Received report from ANAHY Solis. Patient awake, alert, and able to verbalize needs. Oxygen titrated to 1L oxygen per nasal cannula, saturating well. No complaints of SOB or in acute distress. IV site intact and flushed, saline lock. No complaints of pain or discomfort at this time. Noted to have had last remdesivir dosage today, was tolerated well. Bed in lowest position, brakes engaged, bed alarm on. Bed rails raised x3. Call light placed within reach. Will continue to monitor.
[2020-08-07 20:00] VITALS: BP 158/61
[2020-08-07] MEDS: Levemir Flexpen SUBQ SCH (20:34)
[2020-08-08] VITALS: BP 125/36
[2020-08-08 04:00] VITALS: BP 152/67
[2020-08-08] MEDS: NovoLOG Insulin Flexpen SUBQ SCH ×7 (06:04→21:55)
[2020-08-08 07:19] LABS: BASOPHILS % (AUTO) 2.4 % (0.0-2.0); EOSINOPHILS % (AUTO) 0.1 % (0.0-3.0); HEMATOCRIT 42.2 % (37.0-47.0); HEMOGLOBIN 12.7 G/DL (12.0-16.0); LYMPHOCYTES % (AUTO) 13.9 % (20.0-45.0); MEAN CORPUSCULAR VOLUME 75 FL (80-99); MONOCYTES % (AUTO) 8.5 % (1.0-10.0); NEUTROPHILS % (AUTO) 75.1 % (45.0-75.0); PLATELET COUNT 325 K/UL (150-450); RED BLOOD COUNT 5.65 M/UL (4.20-5.40); RED CELL DISTRIBUTION WIDTH 11.7 % (11.6-14.8); WHITE BLOOD COUNT 6.6 K/UL (4.8-10.8)
--- NOTE | 2020-08-08 07:35 | NUR ---
NURSE NOTES: Received report from Hector/RN, Observed patient awake and alert, lying semi-helm's, resting comfortably. On 1L nasal canula, no acute distress/SOB noted. Able to make needs known. Denies pain at this time. Iv site patent and intact. Bed in low position and locked, Call light within reach. Encouraged to use call light when needed. Bed alarm is on, side rails up x3. Will continue plan of care.
--- NOTE | 2020-08-08 07:36 | NUR ---
NURSE HAND-OFF REPORT: Important Events on Shift:[Still no BM] Patient Status: [FC] Diet: [Cardiac] Pending Orders: [Morning labs] Pending Results/Labs:[] Pending MD notification:[] Latest Vital Signs: Temperature 97.9 , Pulse 60 , B/P 152 /67 , Respiratory Rate 20 , O2 SAT 100 , Nasal Cannula, O2 Flow Rate 2.0 . Vital Sign Comment: [] EKG Rhythm: A-Paced Rhythm change?: N MD Notified?: N -Dr Blake WHITLOCK Response: Message left await call Latest Cates Fall Score: 35 Fall Risk: Medium Risk Safety Measures: Call light Within Reach, Bed Alarm Zone 2, Side Rails Side Rails x3, Bed position Low and Locked. Fall Precautions: Yellow Socks Yellow Gown Door Sign Patient Fall Education Report given to [].
[2020-08-08 07:48] LABS: ALANINE AMINOTRANSFERASE 33 U/L (12-78); ALBUMIN 2.7 G/DL (3.4-5.0); ALBUMIN/GLOBULIN RATIO 0.6 (1.0-2.7); ALKALINE PHOSPHATASE 68 U/L (46-116); ANION GAP 7 mmol/L (5-15); ASPARTATE AMINO TRANSFERASE 21 U/L (15-37); BILIRUBIN,DIRECT 0.1 MG/DL (0.0-0.3); BILIRUBIN,TOTAL 0.3 MG/DL (0.2-1.0); BLOOD UREA NITROGEN 31 mg/dL (7-18); CALCIUM 9.9 MG/DL (8.5-10.1); CARBON DIOXIDE 28 MMOL/L (21-32); CHLORIDE 103 MMOL/L (98-107); POTASSIUM 4.3 MMOL/L (3.5-5.1); SODIUM 138 MMOL/L (136-145)
[2020-08-08 08:00] VITALS: BP 155/72
[2020-08-08] MEDS: Heparin 5000 units/ml inj SUBQ SCH ×2 (08:54→22:38)
[2020-08-08] MEDS: Losartan 50mg tab ORAL SCH (08:58)
[2020-08-08] MEDS: Aspirin EC 81mg tab ORAL SCH (08:58)
--- NOTE | 2020-08-08 11:11 | Infectious Diseases Prog Note ---
Assessment/Plan Assessment/Plan antibiotics : none A 1. COVID 19 pneumonia s/p remdesivir on 2 liters O2, saturation 99 percent 2. diabetes mellitus 3. hypertension P 1. continue decadron day 5 2. continue isolation 3. will follow up clinically Subjective ROS Limited/Unobtainable: Yes Allergies: Coded Allergies: AZITHROMYCIN (Verified Allergy, Intermediate, ITCHINESS, 10/15/13) QUESTIONABLE ALLERGIC RXN BUT PT STARTED ITCHING AFTER BEING GIVEN A DOSE BUT PT NOT SURE Objective Last 24 Hour Vital Signs Date Time Temp Pulse Resp B/P (MAP) Pulse Ox O2 Delivery O2 Flow Rate FiO2 08/08/20 09:00 Nasal Cannula 2.0 08/08/20 08:58 155/72 08/08/20 08:56 60 155/72 08/08/20 08:00 60 08/08/20 08:00 97.7 60 20 155/72 (99) 98 08/08/20 04:00 97.9 60 20 152/67 (95) 100 08/08/20 04:00 60 08/08/20 00:00 60 08/08/20 00:00 97.9 60 20 125/36 (65) 100 08/07/20 21:00 Nasal Cannula 2.0 08/07/20 20:28 60 158/61 08/07/20 20:00 98.1 60 20 158/61 (93) 100 08/07/20 20:00 60 08/07/20 16:00 60 08/07/20 16:00 98.1 67 18 172/55 (94) 96 08/07/20 12:00 99.7 68 18 178/53 (94) 99 08/07/20 12:00 60 Height (Feet): 5 Height (Inches): 4.00 Weight (Pounds): 258 Laboratory Tests Test 08/07/20 11:25 08/07/20 17:09 08/07/20 20:09 08/08/20 05:25 POC Whole Blood Glucose Pending 325 MG/DL (74-106) H 313 MG/DL (74-106) H Pending Test 08/08/20 06:42 White Blood Count 6.6 K/UL (4.8-10.8) Red Blood Count 5.65 M/UL (4.20-5.40) H Hemoglobin 12.7 G/DL (12.0-16.0) Hematocrit 42.2 % (37.0-47.0) Mean Corpuscular Volume 75 FL (80-99) L Mean Corpuscular Hemoglobin 22.5 PG (27.0-31.0) L Mean Corpuscular Hemoglobin Concent 30.1 G/DL (32.0-36.0) L Red Cell Distribution Width 11.7 % (11.6-14.8) Platelet Count 325 K/UL (150-450) Mean Platelet Volume 6.3 FL (6.5-10.1) L Neutrophils (%) (Auto) 75.1 % (45.0-75.0) H Lymphocytes (%) (Auto) 13.9 % (20.0-45.0) L Monocytes (%) (Auto) 8.5 % (1.0-10.0) Eosinophils (%) (Auto) 0.1 % (0.0-3.0) Basophils (%) (Auto) 2.4 % (0.0-2.0) H Sodium Level 138 MMOL/L (136-145) Potassium Level 4.3 MMOL/L (3.5-5.1) Chloride Level 103 MMOL/L (98-107) Carbon Dioxide Level 28 MMOL/L (21-32) Anion Gap 7 mmol/L (5-15) Blood Urea Nitrogen 31 mg/dL (7-18) H Creatinine 1.0 MG/DL (0.55-1.30) Estimat Glomerular Filtration Rate > 60 mL/min (>60) Glucose Level 275 MG/DL (74-106) H Calcium Level 9.9 MG/DL (8.5-10.1) Total Bilirubin 0.3 MG/DL (0.2-1.0) Direct Bilirubin 0.1 MG/DL (0.0-0.3) Aspartate Amino Transf (AST/SGOT) 21 U/L (15-37) Alanine Aminotransferase (ALT/SGPT) 33 U/L (12-78) Alkaline Phosphatase 68 U/L (46-116) Total Protein 7.4 G/DL (6.4-8.2) Albumin 2.7 G/DL (3.4-5.0) L Globulin 4.7 g/dL Albumin/Globulin Ratio 0.6 (1.0-2.7) L Current Medications Medications (Trade) Dose Ordered Sig/Haider Route PRN Reason Start Time Stop Time Status Last Admin Dose Admin Albuterol/ Ipratropium (Combivent Respimat) 1 puff Q6HR INH 08/03/20 00:00 09/02/20 00:00 08/08/20 06:01 Aspirin (Ecotrin) 81 mg DAILY ORAL 08/03/20 09:00 09/17/20 08:59 08/08/20 08:58 Dexamethasone (Decadron) 6 mg DAILY ORAL 08/04/20 13:30 08/13/20 09:01 08/08/20 08:58 Dextrose (Dextrose 50%) 25 ml Q30M PRN IV Hypoglycemia 08/02/20 16:00 10/31/20 15:59 Dextrose (Dextrose 50%) 50 ml Q30M PRN IV Hypoglycemia 08/02/20 16:00 10/31/20 15:59 Heparin Sodium (Porcine) (Heparin 5000 units/ml) 5,000 units EVERY 12 HOURS SUBQ 08/02/20 21:00 09/16/20 20:59 08/08/20 08:54 Insulin Aspart (NovoLOG) BEFORE MEALS AND HS SUBQ 08/02/20 16:30 10/31/20 16:29 08/08/20 06:04 Insulin Aspart (NovoLOG) 6 units NOVOTIAC SUBQ 08/05/20 11:50 11/03/20 11:49 08/08/20 06:05 Insulin Detemir (Levemir) 28 units BEDTIME SUBQ 08/05/20 21:00 11/03/20 20:59 08/07/20 20:34 Labetalol HCl (Normodyne) 500 mg Q12HR ORAL 08/07/20 21:00 09/05/20 08:59 08/08/20 08:56 Losartan Potassium (Cozaar) 100 mg DAILY ORAL 08/06/20 09:00 09/05/20 08:59 08/08/20 08:58 Magnesium Hydroxide (Mom) 30 ml DAILYPRN PRN ORAL Constipation 08/06/20 15:30 09/05/20 15:29 08/06/20 16:58 Nahomi Garcia MD Aug 08, 2020 11:11
--- NOTE | 2020-08-08 11:30 | NUR ---
NURSE NOTES: Patient is off Oxygen, saturating 97% on room air. No distress at this time.
[2020-08-08 12:00] VITALS: BP 147/70
--- NOTE | 2020-08-08 12:53 | General Progress Note ---
Subjective Allergies: Coded Allergies: AZITHROMYCIN (Verified Allergy, Intermediate, ITCHINESS, 10/15/13) QUESTIONABLE ALLERGIC RXN BUT PT STARTED ITCHING AFTER BEING GIVEN A DOSE BUT PT NOT SURE Subjective No new c/o Objective Last 24 Hour Vital Signs Date Time Temp Pulse Resp B/P (MAP) Pulse Ox O2 Delivery O2 Flow Rate FiO2 08/08/20 09:00 Nasal Cannula 2.0 08/08/20 08:58 155/72 08/08/20 08:56 60 155/72 08/08/20 08:00 60 08/08/20 08:00 97.7 60 20 155/72 (99) 98 08/08/20 04:00 97.9 60 20 152/67 (95) 100 08/08/20 04:00 60 08/08/20 00:00 60 08/08/20 00:00 97.9 60 20 125/36 (65) 100 08/07/20 21:00 Nasal Cannula 2.0 08/07/20 20:28 60 158/61 08/07/20 20:00 98.1 60 20 158/61 (93) 100 08/07/20 20:00 60 08/07/20 16:00 60 08/07/20 16:00 98.1 67 18 172/55 (94) 96 Intake and Output 08/07/20 08/08/20 19:00 07:00 Intake Total 720 ml Output Total 350 ml Balance 720 ml -350 ml Intake Oral 720 ml Output Urine Total 350 ml # Voids 1 3 Laboratory Tests 08/07/20 17:09: POC Whole Blood Glucose 325H 08/07/20 20:09: POC Whole Blood Glucose 313H 08/08/20 05:25: POC Whole Blood Glucose [Pending] 08/08/20 06:42: White Blood Count 6.6, Red Blood Count 5.65H, Hemoglobin 12.7, Hematocrit 42.2, Mean Corpuscular Volume 75L, Mean Corpuscular Hemoglobin 22.5L, Mean Corpuscular Hemoglobin Concent 30.1L, Red Cell Distribution Width 11.7, Platelet Count 325, Mean Platelet Volume 6.3L, Neutrophils (%) (Auto) 75.1H, Lymphocytes (%) (Auto) 13.9L, Monocytes (%) (Auto) 8.5, Eosinophils (%) (Auto) 0.1, Basophils (%) (Auto) 2.4H, Sodium Level 138, Potassium Level 4.3, Chloride Level 103, Carbon Dioxide Level 28, Anion Gap 7, Blood Urea Nitrogen 31H, Creatinine 1.0, Estimat Glomerular Filtration Rate > 60, Glucose Level 275H, Calcium Level 9.9, Total Bilirubin 0.3, Direct Bilirubin 0.1, Aspartate Amino Transf (AST/SGOT) 21, Alanine Aminotransferase (ALT/SGPT) 33, Alkaline Phosphatase 68, Total Protein 7.4, Albumin 2.7L, Globulin 4.7, Albumin/Globulin Ratio 0.6L Height (Feet): 5 Height (Inches): 4.00 Weight (Pounds): 258 Objective Morbidly obese. Looks lethargic!! CV RR Lungs B wheezes Abs SNT BS+ E NO CCE Assessment/Plan Assessment/Plan: Covid 19 pneumonia . On Remdesevir. Cannot DC home today. BP 150/90 m/p due to Dexamethasone. Increasing Rx DC home Abbey Lozano MD Aug 08, 2020 12:53
--- NOTE | 2020-08-08 13:20 | NUR ---
NURSE NOTES: Called Son Darci to pick his mother up, no answer. Called daughter and she said she is at work and she can't pick her mother up right now, but she said she will call her brother.
--- NOTE | 2020-08-08 15:07 | NUR ---
DISCHARGE PLANNING DISCHARGE ORDER REQUESTED FROM DR LOVE BOTH YESTERDAY AND TODAY AWAIT MD'S ARRIVAL Addendum: 08/08/20 at 1511 by WHITLEY HERNANDEZ LVN LVN CLEARED BY ID FOR DISCHARGE
[2020-08-08 16:00] VITALS: BP 151/67
[2020-08-08] MEDS ORDERED: LABETALOL HCL300 MG ORAL (16:07)
[2020-08-08] MEDS ORDERED: COZAAR50 MG ORAL (16:08)
--- NOTE | 2020-08-08 16:26 | Pulmonology Progress Note ---
Subjective ROS Limited/Unobtainable: Yes Constitutional: Denies: fever, chills Gastrointestinal/Abdominal: Denies: nausea, vomiting, diarrhea Musculoskeletal: Denies: pain Allergies: Coded Allergies: AZITHROMYCIN (Verified Allergy, Intermediate, ITCHINESS, 10/15/13) QUESTIONABLE ALLERGIC RXN BUT PT STARTED ITCHING AFTER BEING GIVEN A DOSE BUT PT NOT SURE Subjective care noted and reviewed on oxygen and stable no distress Objective Last 24 Hour Vital Signs Date Time Temp Pulse Resp B/P (MAP) Pulse Ox O2 Delivery O2 Flow Rate FiO2 08/08/20 12:00 97.5 60 22 147/70 (95) 97 08/08/20 12:00 60 08/08/20 09:00 Nasal Cannula 2.0 08/08/20 08:58 155/72 08/08/20 08:56 60 155/72 08/08/20 08:00 60 08/08/20 08:00 97.7 60 20 155/72 (99) 98 08/08/20 04:00 97.9 60 20 152/67 (95) 100 08/08/20 04:00 60 08/08/20 00:00 60 08/08/20 00:00 97.9 60 20 125/36 (65) 100 08/07/20 21:00 Nasal Cannula 2.0 08/07/20 20:28 60 158/61 08/07/20 20:00 98.1 60 20 158/61 (93) 100 08/07/20 20:00 60 Intake and Output 08/07/20 08/08/20 19:00 07:00 Intake Total 720 ml Output Total 350 ml Balance 720 ml -350 ml Intake Oral 720 ml Output Urine Total 350 ml # Voids 1 3 Objective deferred due to COVID Laboratory Tests 08/07/20 17:09: POC Whole Blood Glucose 325H 08/07/20 20:09: POC Whole Blood Glucose 313H 08/08/20 05:25: POC Whole Blood Glucose [Pending] 08/08/20 06:42: White Blood Count 6.6, Red Blood Count 5.65H, Hemoglobin 12.7, Hematocrit 42.2, Mean Corpuscular Volume 75L, Mean Corpuscular Hemoglobin 22.5L, Mean Corpuscular Hemoglobin Concent 30.1L, Red Cell Distribution Width 11.7, Platelet Count 325, Mean Platelet Volume 6.3L, Neutrophils (%) (Auto) 75.1H, Lymphocytes (%) (Auto) 13.9L, Monocytes (%) (Auto) 8.5, Eosinophils (%) (Auto) 0.1, Basophils (%) (Auto) 2.4H, Sodium Level 138, Potassium Level 4.3, Chloride Level 103, Carbon Dioxide Level 28, Anion Gap 7, Blood Urea Nitrogen 31H, Creatinine 1.0, Estimat Glomerular Filtration Rate > 60, Glucose Level 275H, Calcium Level 9.9, Total Bilirubin 0.3, Direct Bilirubin 0.1, Aspartate Amino Transf (AST/SGOT) 21, Alanine Aminotransferase (ALT/SGPT) 33, Alkaline Phosphatase 68, Total Protein 7.4, Albumin 2.7L, Globulin 4.7, Albumin/Globulin Ratio 0.6L Current Medications Medications (Trade) Dose Ordered Sig/Haider Route PRN Reason Start Time Stop Time Status Last Admin Dose Admin Albuterol/ Ipratropium (Combivent Respimat) 1 puff Q6HR INH 08/03/20 00:00 09/02/20 00:00 08/08/20 12:16 Aspirin (Ecotrin) 81 mg DAILY ORAL 08/03/20 09:00 09/17/20 08:59 08/08/20 08:58 Dexamethasone (Decadron) 6 mg DAILY ORAL 08/04/20 13:30 08/13/20 09:01 08/08/20 08:58 Dextrose (Dextrose 50%) 25 ml Q30M PRN IV Hypoglycemia 08/02/20 16:00 10/31/20 15:59 Dextrose (Dextrose 50%) 50 ml Q30M PRN IV Hypoglycemia 08/02/20 16:00 10/31/20 15:59 Heparin Sodium (Porcine) (Heparin 5000 units/ml) 5,000 units EVERY 12 HOURS SUBQ 08/02/20 21:00 09/16/20 20:59 08/08/20 08:54 Insulin Aspart (NovoLOG) BEFORE MEALS AND HS SUBQ 08/02/20 16:30 10/31/20 16:29 08/08/20 11:30 Insulin Aspart (NovoLOG) 6 units NOVOTIAC SUBQ 08/05/20 11:50 11/03/20 11:49 08/08/20 12:16 Insulin Detemir (Levemir) 28 units BEDTIME SUBQ 08/05/20 21:00 11/03/20 20:59 08/07/20 20:34 Labetalol HCl (Normodyne) 600 mg Q12HR ORAL 08/08/20 21:00 09/05/20 08:59 Losartan Potassium (Cozaar) 100 mg DAILY ORAL 08/06/20 09:00 09/05/20 08:59 08/08/20 08:58 Magnesium Hydroxide (Mom) 30 ml DAILYPRN PRN ORAL Constipation 08/06/20 15:30 09/05/20 15:29 08/06/20 16:58 Assessment/Plan Assessment/Plan ASSESSMENT: 1. CHF, compensated 2.+ COVID-19. pneumonia 3. Type 2 diabetes mellitus. 4. no significant hypoxemia 5. Status post pacemaker. 6. Chronic kidney disease stage 3. 7. Hypertension PLAN ID follow up pulmonary santos remains stable on oxygen and stable DVT prophylaxis inhalers prn oxygen prn monitor imaging for change currently without pulmonary congestion impression, plan, and exam edited and reviewed in detail care discussed with Rocael Aviles MD Aug 08, 2020 16:26
--- NOTE | 2020-08-08 16:32 | NUR ---
NURSE NOTES: Granddaughter called and gave me Oswaldo (patient's son) number to contact him. Called Oswaldo at [phone], and he is at work, he's unable to pick his mother up.
--- NOTE | 2020-08-08 17:45 | NUR ---
NURSE NOTES: Called four different family members regarding discharge and to get patient home, Non of them are available to pick the patient up. Per Oswaldo (son) , Darci (son) has house durant and He's in [place] today. Patient is blind and doesn't have house [place] to get in. Oswaldo said, they will pick her up tomorrow afternoon.
--- NOTE | 2020-08-08 19:25 | NUR ---
NURSE NOTES: Report received from ANAHY Solis. No SOB or acute distress. Patient is alert and oriented x4 but bilaterally blind. No SOB or distress. Patient is COVID positive. Precautions instilled. hospital monitor is off. Patient to be transferred to med surg unit per Dr. Jose. Bed at lowest position. Cleaned and dry. Will follow with plan of care.
--- NOTE | 2020-08-08 19:34 | NUR ---
NURSE HAND-OFF REPORT: Important Events on Shift:NA Patient Status: Stable Diet: Cardiac Pending Orders: Transfer to [place] Pending Results/Labs:NA Pending MD notification:NA Latest Vital Signs: Temperature 97.9 , Pulse 61 , B/P 151 /67 , Respiratory Rate 20 , O2 SAT 96 , Nasal Cannula, O2 Flow Rate 2.0 . Vital Sign Comment: Stable EKG Rhythm: A-Paced, SR W/ 1AVB Rhythm change?: N MD Notified?: N -Dr Blake WHITLOCK Response: Message left await call Latest Cates Fall Score: 35 Fall Risk: Medium Risk Safety Measures: Call light Within Reach, Bed Alarm Zone 2, Side Rails Side Rails x3, Bed position Low and Locked. Fall Precautions: Yellow Socks Yellow Gown Door Sign Patient Fall Education Report given to Flavia/RN.
--- NOTE | 2020-08-08 20:15 | NUR ---
NURSE NOTES: Patient transferred to [address] [place] [address] surgical unit. Report given to ANAHY Cooper. Patient is awake alert oriented x4 and is stable. Belonging given to nurse and reviewed. Bed at lowest position locked with side rails up. Call light in reach. Chart, insulin pens and inhaler given to RN. Endorsed plan of care.
--- NOTE | 2020-08-08 21:30 | NUR ---
NURSE NOTES: Pt. received from ANAHY Alejandro. Pt. AAOx4, on room air, breathing even and unlabored, no indications of respiratory distress, no complaints of pain, VSS, belongings list checked and verified, pt. oriented to room. IVs noted right AC 22g and left FA 22g intact and patent. Pt. blind and [place], assisted with positioning of call light and room for. Purewick set up with pt. consent. Bed low and locked, side rails x3 up, bed alarm active, and call light in reach.
[2020-08-08] MEDS: Levemir Flexpen SUBQ SCH (21:55)
[2020-08-08] MEDS ORDERED: Tubing IV Secondary IV ONE (22:31)
[2020-08-08] MEDS ORDERED: NS 275ml ONE (22:31)
[2020-08-09] VITALS: BP 151/65
[2020-08-09 04:00] VITALS: BP 132/54
--- NOTE | 2020-08-09 06:30 | NUR ---
NURSE NOTES: Pt. refused AM labs. Addendum: 08/09/20 at 0631 by Kenneth Biggs RN Pt. stated "I'm sorry but I'm going home today." Discussed orders to draw labs and pt. continued to refuse.
[2020-08-09] MEDS: NovoLOG Insulin Flexpen SUBQ SCH ×6 (06:35→16:37)
--- NOTE | 2020-08-09 07:28 | NUR ---
NURSE HAND-OFF: Important Events on Shift:[pt. transferred from [facility] [place], stable, with purewick] Patient Status: stable, resting Diet: cardiac Pending Orders: na Pending Results/Labs:refused AM labs Pending MD notification:na Latest Vital Signs: Temperature 97.9 , Pulse 60 , B/P 132 /54 , Respiratory Rate 18 , O2 SAT 94 , Room Air, O2 Flow Rate 2.0 . Vital Sign Comment: stable Latest Cates Fall Score: 35 Fall Risk: Medium Risk Safety Measures: Call light Within Reach, Bed Alarm Zone 1, Side Rails Side Rails x3, Bed position Low and Locked. Fall Precautions: Yellow Socks Yellow Gown Door Sign Patient Fall Education Report given to ANAHY Rudd.
--- NOTE | 2020-08-09 07:39 | NUR ---
NURSE NOTES: Report received from ANAHY Cooper. Patient seen in bed, AAOx4, on room air. Breathing is even and unlabored, no indications of respiratory distress, no complaints of pain noted at this time, Patient refusedm orning labs due to possible discharge todat. IVs noted right AC 22g and left FA 22g intact and patent. Patient is noted to be blind, RN oriented patient to room and placed daily needs at bedside and near patient for easy access. Purewick on patient. Bed is locked and placed in lowest position with bed alarm on. Call light within reach. Will continue to monitor
[2020-08-09 08:00] VITALS: BP 142/66
[2020-08-09] MEDS: Aspirin EC 81mg tab ORAL SCH (08:42)
[2020-08-09] MEDS: Heparin 5000 units/ml inj SUBQ SCH (08:43)
[2020-08-09] MEDS ORDERED: Losartan 50mg tab ORAL SCH (09:00)
[2020-08-09] MEDS ORDERED: Furosemide 40mg tab ORAL SCH (09:00)
--- NOTE | 2020-08-09 09:49 | NUR ---
NURSE NOTES: RN called and notified patients son, Darci Medina regarding estimated time of pickle sorter is around 3-4 pm. Charge nurse aware
--- NOTE | 2020-08-09 10:01 | Pulmonology Progress Note ---
Subjective ROS Limited/Unobtainable: Yes Constitutional: Denies: fever, chills Gastrointestinal/Abdominal: Denies: nausea, vomiting, diarrhea Musculoskeletal: Denies: pain Allergies: Coded Allergies: AZITHROMYCIN (Verified Allergy, Intermediate, ITCHINESS, 10/15/13) QUESTIONABLE ALLERGIC RXN BUT PT STARTED ITCHING AFTER BEING GIVEN A DOSE BUT PT NOT SURE Subjective care noted and reviewed on oxygen and stable no distress overnight events reviewed Objective Last 24 Hour Vital Signs Date Time Temp Pulse Resp B/P (MAP) Pulse Ox O2 Delivery O2 Flow Rate FiO2 08/09/20 09:00 Room Air 2.0 08/09/20 08:42 142/66 08/09/20 08:42 61 142/66 08/09/20 08:00 97.5 61 18 142/66 (91) 97 08/09/20 04:00 97.9 60 18 132/54 (80) 94 08/09/20 00:00 97.0 60 18 151/65 (93) 94 08/08/20 21:00 Room Air 08/08/20 16:00 97.9 61 20 151/67 (95) 96 08/08/20 12:00 97.5 60 22 147/70 (95) 97 08/08/20 12:00 60 Intake and Output 08/08/20 08/09/20 19:00 07:00 Intake Total 360 ml 250 ml Output Total 350 ml Balance 360 ml -100 ml Intake Oral 360 ml 250 ml Output Urine Total 350 ml # Voids 2 1 Objective deferred due to COVID Current Medications Medications (Trade) Dose Ordered Sig/Haider Route PRN Reason Start Time Stop Time Status Last Admin Dose Admin Albuterol/ Ipratropium (Combivent Respimat) 1 puff Q6HR INH 08/03/20 00:00 09/02/20 00:00 08/09/20 06:34 Aspirin (Ecotrin) 81 mg DAILY ORAL 08/03/20 09:00 09/17/20 08:59 08/09/20 08:42 Dexamethasone (Decadron) 6 mg DAILY ORAL 08/04/20 13:30 08/13/20 09:01 08/09/20 08:42 Dextrose (Dextrose 50%) 25 ml Q30M PRN IV Hypoglycemia 08/02/20 16:00 10/31/20 15:59 Dextrose (Dextrose 50%) 50 ml Q30M PRN IV Hypoglycemia 08/02/20 16:00 10/31/20 15:59 Furosemide (Lasix) 80 mg DAILY ORAL 08/09/20 09:00 09/08/20 08:59 08/09/20 08:42 Heparin Sodium (Porcine) (Heparin 5000 units/ml) 5,000 units EVERY 12 HOURS SUBQ 08/02/20 21:00 09/16/20 20:59 08/09/20 08:43 Insulin Aspart (NovoLOG) BEFORE MEALS AND HS SUBQ 08/02/20 16:30 10/31/20 16:29 08/09/20 06:35 Insulin Aspart (NovoLOG) 6 units NOVOTIAC SUBQ 08/05/20 11:50 11/03/20 11:49 08/09/20 06:35 Insulin Detemir (Levemir) 28 units BEDTIME SUBQ 08/05/20 21:00 11/03/20 20:59 08/08/20 21:55 Labetalol HCl (Normodyne) 300 mg EVERY 12 HOURS ORAL 08/09/20 09:00 09/08/20 08:59 Losartan Potassium (Cozaar) 50 mg DAILY ORAL 08/09/20 09:00 09/08/20 08:59 08/09/20 08:42 Magnesium Hydroxide (Mom) 30 ml DAILYPRN PRN ORAL Constipation 08/06/20 15:30 09/05/20 15:29 08/06/20 16:58 Potassium Chloride (K-Dur) 20 meq DAILY ORAL 08/09/20 09:00 11/07/20 08:59 08/09/20 08:42 Assessment/Plan Assessment/Plan ASSESSMENT: 1. CHF, compensated 2.+ COVID-19. pneumonia 3. Type 2 diabetes mellitus. 4. no significant hypoxemia 5. Status post pacemaker. 6. Chronic kidney disease stage 3. 7. Hypertension PLAN ID follow up pulmonary santos remains stable on oxygen and stable DVT prophylaxis inhalers prn oxygen prn monitor imaging for change currently without pulmonary congestion impression, plan, and exam edited and reviewed in detail care discussed with Rocael Aviles MD Aug 09, 2020 10:01
[2020-08-09 12:00] VITALS: BP 150/69
--- NOTE | 2020-08-09 12:42 | General Progress Note ---
Subjective Allergies: Coded Allergies: AZITHROMYCIN (Verified Allergy, Intermediate, ITCHINESS, 10/15/13) QUESTIONABLE ALLERGIC RXN BUT PT STARTED ITCHING AFTER BEING GIVEN A DOSE BUT PT NOT SURE Subjective No new c/o Objective Last 24 Hour Vital Signs Date Time Temp Pulse Resp B/P (MAP) Pulse Ox O2 Delivery O2 Flow Rate FiO2 08/09/20 12:00 97.9 60 18 150/69 (96) 96 08/09/20 09:00 Room Air 2.0 08/09/20 08:42 142/66 08/09/20 08:42 61 142/66 08/09/20 08:00 97.5 61 18 142/66 (91) 97 08/09/20 04:00 97.9 60 18 132/54 (80) 94 08/09/20 00:00 97.0 60 18 151/65 (93) 94 08/08/20 21:00 Room Air 08/08/20 16:00 97.9 61 20 151/67 (95) 96 Intake and Output 08/08/20 08/09/20 19:00 07:00 Intake Total 360 ml 250 ml Output Total 350 ml Balance 360 ml -100 ml Intake Oral 360 ml 250 ml Output Urine Total 350 ml # Voids 2 1 Laboratory Tests 08/09/20 11:03: POC Whole Blood Glucose 200H Height (Feet): 5 Height (Inches): 4.00 Weight (Pounds): 258 Objective Morbidly obese. Looks lethargic!! CV RR Lungs B wheezes Abs SNT BS+ E NO CCE Assessment/Plan Assessment/Plan: Covid 19 pneumonia . On Remdesevir. Cannot DC home today. BP 150/90 m/p due to Dexamethasone. Increasing Rx DC home. Patient discharged yesterday. To involve Abbey Buenrostro MD Aug 09, 2020 12:42
--- NOTE | 2020-08-09 14:12 | Cardiology Report ---
APPROVED REPORT EKG Measurement Heart [id number] <Conclusion> Normal sinus rhythm Normal ECG
--- NOTE | 2020-08-09 14:33 | Cardiology Report ---
APPROVED REPORT EXAM: Two-dimensional and M-mode echocardiogram with Doppler and color Doppler. INDICATION Congestive Heart Failure M-Mode DIMENSIONS IVSd1.4 (0.7-1.1cm)Left Atrium (MM)5.0 (1.6-4.0cm) LVDd3.7 (3.5-5.6cm)Aortic Root3.3 (2.0-3.7cm) PWd1.3 (0.7-1.1cm)Aortic Cusp Exc.1.9 (1.5-2.0cm) IVSs1.8 cmEPSS0.8 (>1.0cm) LVDs2.5 (2.5-4.0cm) PWs1.5 cm <Conclusion> Technically difficult study due to poor acoustic windows. Study quality precludes accurate assessment of regional wall motion. Normal left ventricular chamber size, systolic function and wall motion. Left ventricular ejection fraction estimated to be 65 %. Mild left ventricular hypertrophy. Anterior Echo-free space, may be due to pericardial fat. All other cardiac chamber sizes are within normal limits. Focal aortic valve sclerosis with adequate cusp excursion. Thickened mitral valve leaflets with normal excursion. Mitral annulus and aortic root calcification. Pulmonic valve not well visualized. Normal tricuspid valve structure. IVC is normal in size with physiological collapse. A color flow and spectral Doppler study was performed and revealed: No aortic regurgitation. Trace mitral regurgitation. Mitral diastolic velocities suggest mild left ventricular diastolic dysfunction (Grade I). Trace tricuspid regurgitation. Tricuspid systolic velocities suggests peak right ventricular systolic pressure of 10 mmHg.
[2020-08-09 16:00] VITALS: BP 153/67
--- NOTE | 2020-08-09 16:03 | NUR ---
NURSE NOTES: RN called Darci Medina again to confirm picker feeder of patient. RN unable to contact. Charge nurse aware
--- NOTE | 2020-08-09 18:00 | NUR ---
NURSE NOTES: Patient discharged in stable condition. Patient was picked up by son. Patients IV site was removed. Belongings signed with charge nurse for patient was unable to sign due to complete blindness. Packet was given to son and educated patient and son to continue isolation for 14 days or till the doctor recommends. Prescriptions were given and medication education were given to both patient and son. patient had no wounds, patient was discharged on wheel chair and accompanied to car safely
--- NOTE | 2020-08-10 10:27 | Discharge Summary ---
Discharge Summary Discharge Summary _ DATE OF ADMISSION: 08/02/2020 DATE OF DISCHARGE: 08/09/2020 DISCHARGED BY: Dr. Lozano REASON FOR ADMISSION: 85 years old female with past medical history of hypertensive cardiovascular disease, diabetes mellitus type 2, COPD, status post pacemaker implantation, advanced diabetic nephropathy, chronic kidney disease stage III due to diabetic nephropathy, diabetic retinopathy with blindness, diastolic heart failure, presented with shortness of breath for 2 weeks and productive cough. No fevers or chills. No chest pain. No nausea or vomiting. Upon evaluation patient was tachypneic with respiratory rate 25 . Pulse oximetry on room air was 91%. Laboratory work-up revealed no leukocytosis , stable hemoglobin, hematocrit and platelet count. Stable electrolytes. BUN 25, creatinine 1.4. Stable LFT. Troponin negative, pro BNP 252. EKG revealed sinus rhythm, no acute ischemic changes . Chest x-ray revealed evidence of bibasilar atelectasis versus mild infiltrates. Lactic acid 1.9. Albumin 2.6. Rapid COVID-19 was positive. Patient received Lasix in emergency department , started on empiric antibiotic , received nebulizing treatment and admitted for further management. CONSULTANTS: pulmonary Dr. Bello ID specialist Dr. Garcia [facility] COURSE: Patient admitted to isolation room. Patient started on diuresis with close monitoring of volumes and cardiorenal parameters. Delicatessen Clerk and ID specialist closely followed. Patient required supplemental oxygen due to hypoxia. Patient started on steroids and Remdesivir and completed 5 days course. Patient also received ivermectin 1 dose. Albuterol via MDI provided. DVT prophylaxis continued. Echocardiogram demonstrated preserved ejection fraction 65% with mild left ventricular hypertrophy. No evidence of wall motion abnormality. Blood pressure was managed with multiple antihypertensive , including beta- ttia and angiotensin receptor tita. Antiplatelet therapy with aspirin continued. Blood sugar was managed with long-acting Levemir and sliding scale of insulin. Diabetic diet provided. Patient clinically stabilized and was ready for home patient was stable for discharge FINAL DIAGNOSES: COVID-19 pneumonia Diastolic congestive heart failure Diabetes mellitus type 2 Permanent pacemaker Chronic kidney disease stage III Diabetes mellitus Severe diabetic neuropathy Diabetic nephropathy Advanced diabetic retinopathy with blindness Hypertensive cardiovascular disease Noncompliance with medication DISCHARGE MEDICATIONS: See Medication Reconciliation list. DISCHARGE INSTRUCTIONS: Patient was discharged home Follow-up with a primary care provider in 1 week. Patient was encouraged compliance with medication diet. I have been assigned to dictate discharge summary for this account. I was not involved in the patient's management. Brigida Richards NP Aug 10, 2020 10:27
== END 2020-08-09 18:00 | disposition home or self-care (01) | DRG 177 ==
LOC: EMR 11:12 → 2E 11:24 → EDBEDREQ 13:19 → 2E 08-03 20:06 → 4E 08-08 21:02
DX: U07.1 COVID-19 (principal); J12.89 Other viral pneumonia; I13.0 Hypertensive heart and chronic kidney disease with heart failure and stage 1 through stage 4 chronic kidney disease, or unspecified chronic kidney disease; I50.30 Unspecified diastolic (congestive) heart failure; Z68.41 Body mass index [BMI] 40.0-44.9, adult; E11.22 Type 2 diabetes mellitus with diabetic chronic kidney disease; E11.40 Type 2 diabetes mellitus with diabetic neuropathy, unspecified; N18.3 Chronic kidney disease, stage 3 (moderate); E11.319 Type 2 diabetes mellitus with unspecified diabetic retinopathy without macular edema; E66.01 Morbid (severe) obesity due to excess calories; H54.8 Legal blindness, as defined in USA; K31.84 Gastroparesis; Z91.14 Patient's other noncompliance with medication regimen; J44.9 Chronic obstructive pulmonary disease, unspecified; Z95.0 Presence of cardiac pacemaker; Z88.1 Allergy status to other antibiotic agents; Z79.82 Long term (current) use of aspirin; Z79.4 Long term (current) use of insulin
CPT/HCPCS: 36415; 71045; 80048; 80053; 82248; 82803; 82962; 83605; 83735; 83880; 84484; 85025; 87040; 93005; 93306; 96365; 96375; 99285; J1815; J3490; J8499; S5561; U0002

== ENCOUNTER 2020-12-21 15:16 | Emergency (ER) | payer MEDICARE, MEDICAID ==
[~2020-12-21] VITALS: Ht 165.1 cm; Wt 113.4 kg
[~2020-12-21 15:16] MED LIST changes: +COZAAR50 MG ORAL; +FUROSEMIDE80 M1 ORAL; +LABETALOL HCL300 MG ORAL; +SIMBRINZA 1%-0.28 ML LEFT EYE
[2020-12-21 15:43] VITALS: BP 207/77
[2020-12-21] MEDS: Solu-MEDROL 125mg Inj IVP ONE (16:22)
[2020-12-21 16:55] LABS: BASOPHILS % (AUTO) 1.4 % (0.0-2.0); EOSINOPHILS % (AUTO) 1.9 % (0.0-3.0); HEMATOCRIT 46.4 % (37.0-47.0); HEMOGLOBIN 13.1 G/DL (12.0-16.0); LYMPHOCYTES % (AUTO) 22.3 % (20.0-45.0); MEAN CORPUSCULAR VOLUME 79 FL (80-99); MONOCYTES % (AUTO) 8.5 % (1.0-10.0); PLATELET COUNT 229 K/UL (150-450); RED BLOOD COUNT 5.85 M/UL (4.20-5.40); RED CELL DISTRIBUTION WIDTH 13.1 % (11.6-14.8); WHITE BLOOD COUNT 6.3 K/UL (4.8-10.8)
--- NOTE | 2020-12-21 16:59 | Diagnostic Imaging Report ---
Indication: Shortness of breath Technique: One view of the chest Comparison: 08/02/2020 Findings: Scarring is seen in the right perihilar region. No definite infiltrates, effusions, congestion. The heart size is upper limits of normal. There is a left chest bifocal pacemaker Impression: No acute process
[2020-12-21 17:04] LABS: ANION GAP 8 mmol/L (5-15); BLOOD UREA NITROGEN 17 mg/dL (7-18); CALCIUM 10.3 MG/DL (8.5-10.1); CARBON DIOXIDE 28 MMOL/L (21-32); CHLORIDE 107 MMOL/L (98-107); CREATININE 0.9 MG/DL (0.55-1.30); POTASSIUM 4.7 MMOL/L (3.5-5.1); SODIUM 143 MMOL/L (136-145)
[2020-12-21] MEDS: Albuterol ud Inhalation HHN ONE (17:04)
[2020-12-21] MEDS: Ipratropium 0.02% Inh Soln 2.5ml UD HHN ONE (17:05)
--- NOTE | 2020-12-21 17:05 | NUR ---
Patient came into the ER accompanied by her son with c/o of productive coughing for several days which is exacerbated at night. AAOX4. Ambulates with minor assistance. V/S WNL. Afebrile. Steroid treatment along with breathing to be given then tracked for D/C
--- NOTE | 2020-12-21 17:11 | Emergency Room Report ---
History of Present Illness General Chief Complaint: Upper Respiratory Illness Source: Patient, Medical Record Present Illness HPI Disclaimer: Please note that this report is being documented using [employer] technology. This can lead to erroneous entry secondary to incorrect interpretati on by the dictating instrument. HPI: 85-year-old female history of hypertension, diabetes, COPD presents for cough and shortness of breath. She states she has had a cough for the past 3 weeks. Worse at night. Associated with wheezing. She denies any nausea or vomiting. Cough is productive of sputum. She states she intermittently uses inhalers. She is a non-smoker. She denies any fever or sick contacts. She had COVID-19 about 3 months ago and improved. 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 COVID-19 Screening: Positive COVID-19 COVID-19 Testing Source: 3 months ago Patient History Reviewed Nursing Documentation: PMH: Agreed; PSxH: Agreed Nursing Documentation-PMH Past Medical History: No History, Except For Hx Cardiac Problems: Yes - CHF Hx Hypertension: Yes Hx Pacemaker: Yes Hx Asthma: Yes Hx COPD: Yes Hx Diabetes: Yes Hx Cancer: No Hx Gastrointestinal Problems: Yes Hx Neurological Problems: No Hx Tremors: Yes Hx Vertigo: Yes Hx Dizziness: Yes Hx Syncope: Yes Hx Headaches: Yes Hx Weakness: Yes Hx Fatigue: Yes Review of Systems All Other Systems: negative except mentioned in HPI Physical Exam Vital Signs Date Time Temp Pulse Resp B/P (MAP) Pulse Ox O2 Delivery O2 Flow Rate FiO2 12/21/20 15:43 98.6 63 20 207/77 (120) 95 Room Air Sp02 EP Interpretation: reviewed, normal General Appearance: well appearing, no apparent distress Head: normocephalic, atraumatic Eyes: bilateral eye PERRL, bilateral eye EOMI ENT: hearing grossly normal, moist mucus membranes Neck: full range of motion, supple Respiratory: no rhonchi, no respiratory distress, no retraction, wheezing - Expiratory wheeze noted Cardiovascular #1: normal peripheral pulses, regular rate, rhythm, no murmur Gastrointestinal: non tender, soft, non-distended, no guarding Neurologic: alert, oriented x3, no focal defects Skin: normal color, warm/dry Medical Decision Making Diagnostic Impression: Primary Impression: COPD exacerbation ER Course MDM: Coded but not limited to COPD exacerbation, pneumonia, did consider CHF. Clinical course-patient was in no acute distress. She was coughing with mild expiratory wheeze. This was worse at night. I suspect most likely a mild COPD exacerbation. The ER patient given Solu-Medrol, breathing treatment. After steroids and breathing treatments patient improved, cough resolved. Chest x-ray did not demonstrate any obvious infiltrate. Patient was not hypoxic. Will discharge home with albuterol treatment, prednisone, cough suppressant and p.o. antibiotic. Follow-up PMD. Return precautions given. Labs - Laboratory Tests Test 12/21/20 16:15 White Blood Count 6.3 K/UL (4.8-10.8) Red Blood Count 5.85 M/UL (4.20-5.40) H Hemoglobin 13.1 G/DL (12.0-16.0) Hematocrit 46.4 % (37.0-47.0) Mean Corpuscular Volume 79 FL (80-99) L Mean Corpuscular Hemoglobin 22.4 PG (27.0-31.0) L Mean Corpuscular Hemoglobin Concent 28.3 G/DL (32.0-36.0) L Red Cell Distribution Width 13.1 % (11.6-14.8) Platelet Count 229 K/UL (150-450) Mean Platelet Volume 7.2 FL (6.5-10.1) Neutrophils (%) (Auto) 66.0 % (45.0-75.0) Lymphocytes (%) (Auto) 22.3 % (20.0-45.0) Monocytes (%) (Auto) 8.5 % (1.0-10.0) Eosinophils (%) (Auto) 1.9 % (0.0-3.0) Basophils (%) (Auto) 1.4 % (0.0-2.0) Sodium Level 143 MMOL/L (136-145) Potassium Level 4.7 MMOL/L (3.5-5.1) Chloride Level 107 MMOL/L (98-107) Carbon Dioxide Level 28 MMOL/L (21-32) Anion Gap 8 mmol/L (5-15) Blood Urea Nitrogen 17 mg/dL (7-18) Creatinine 0.9 MG/DL (0.55-1.30) Estimated Glomerular Filtration Rate > 60 mL/min (>60) Glucose Level 198 MG/DL (74-106) H Calcium Level 10.3 MG/DL (8.5-10.1) H Total Bilirubin 0.3 MG/DL (0.2-1.0) Aspartate Amino Transferase (AST) 19 U/L (15-37) Alanine Aminotransferase (ALT) 21 U/L (12-78) Alkaline Phosphatase 110 U/L (46-116) Pro-B-Type Natriuretic Peptide 567 pg/mL (0-125) H Total Protein 7.2 G/DL (6.4-8.2) Albumin 3.2 G/DL (3.4-5.0) L Globulin 4.0 g/dL Albumin/Globulin Ratio 0.8 (1.0-2.7) L On reevaluation: Cough resolved. Plan-discharge home follow-up PMD return precautions Chest X-Ray Diagnostic Results Chest X-Ray Diagnostic Results : Chest X-Ray Ordered: Yes # of Views/Limited/Complete: 1 View Indication: Shortness of Breath EP Interpretation: Yes Interpretation: no consolidation, no effusion, no pneumothorax Impression: No acute disease Electronically Signed by: Werner Pineda MD Last Vital Signs Date Time Temp Pulse Resp B/P (MAP) Pulse Ox O2 Delivery O2 Flow Rate FiO2 12/21/20 15:43 98.6 63 20 207/77 (120) 95 Room Air Status: improved Disposition: HOME, SELF-CARE Condition: Improved Scripts D-Methorphan Hb/Prometh Hcl* (PROMETHAZINE-DM SYRUP*) 118 Ml Syrup 5 ML ORAL Q6H PRN for For Cough, #100 ML 0 Refills Prov: Werner Pineda M.D. 12/21/20 Levofloxacin* (LEVOFLOXACIN*) 750 Mg Tablet 750 MG ORAL DAILY, #7 TAB Prov: Werner Pineda M.D. 12/21/20 Prednisone* (PREDNISONE*) 20 Mg Tablet 40 MG ORAL DAILY, #8 TAB Prov: Werner Pineda M.D. 12/21/20 Albuterol Sulfate* (Albuterol Sulfate Hfa*) 8.5 Gm Hfa.aer.ad 2 PUFF INH Q6H PRN for For Cough, #1 INH Prov: Werner Pineda M.D. 12/21/20 Referrals: Abbey Lozano MD (PCP) Werner Pineda M.D. Dec 21, 2020 17:10
[2020-12-21 17:15] LABS: ALANINE AMINOTRANSFERASE 21 U/L (12-78); ALBUMIN 3.2 G/DL (3.4-5.0); ALBUMIN/GLOBULIN RATIO 0.8 (1.0-2.7); ALKALINE PHOSPHATASE 110 U/L (46-116); ASPARTATE AMINO TRANSFERASE 19 U/L (15-37); BILIRUBIN,TOTAL 0.3 MG/DL (0.2-1.0)
[2020-12-21] MEDS ORDERED: PREDNISONE20 MG ORAL (17:50)
[2020-12-21] MEDS ORDERED: PROMETHAZINE-D118 ML ORAL (17:50)
[2020-12-21] MEDS ORDERED: ALBUTEROL SULF8.5 G1 INH (17:50)
[2020-12-21] MEDS ORDERED: LEVOFLOXACIN750 MG ORAL (17:50)
== END 2020-12-21 18:51 | disposition home or self-care (01) ==
LOC: EMR 16:26
DX: J44.1 Chronic obstructive pulmonary disease with (acute) exacerbation (principal); I11.0 Hypertensive heart disease with heart failure; I50.9 Heart failure, unspecified; J45.909 Unspecified asthma, uncomplicated; E11.9 Type 2 diabetes mellitus without complications; Z86.16 Personal history of COVID-19; Z79.4 Long term (current) use of insulin; Z95.0 Presence of cardiac pacemaker; Z88.1 Allergy status to other antibiotic agents; Z79.899 Other long term (current) drug therapy
CPT/HCPCS: 36415; 71045; 80053; 83880; 85025; 94640; 96374; 99284; J2930